=== PATIENT | female | born 1950 | race Caucasian/White ===

== ENCOUNTER → 2016-07-03 | Outpatient (CLI) | payer MEDICARE, OTHER | END | disposition home or self-care (01) | LOC: LABWHC1 11:07 | PROVIDERS: ATTEND Psychiatry & Neurology Neurology | DX: Z51.81 Encounter for therapeutic drug level monitoring (principal); G40.909 Epilepsy, unspecified, not intractable, without status epilepticus | CPT/HCPCS: 36415; 80177 ==

== ENCOUNTER 2016-09-18 07:54 | Day surgery (SDC) | payer MEDICARE, OTHER ==
[2016-09-17 08:51] VITALS: BMI 31.1
[~2016-09-18 07:54] MED LIST: DEXAMETHASONE SOD PHOSPHATE 10 MG/ML 1 ML VIAL IV ONE; FAMOTIDINE 20 MG/2 ML VIAL IV PRN; HEPARIN SODIUM,PORCINE 5,000 UNIT/ML 1 ML VIAL SQ ONE; LACTATED RINGERS 1,000 ML IV SCH; LIDOCAINE 1% 20 ML VIAL (10MG/ML) FOR IV START INTRADERMA PRN; MIDAZOLAM 2 MG/2 ML VIAL IV PRN; ONDANSETRON 4 MG/2 ML VIAL IVP ONE; ceFAZolin 2 GM in SODIUM CHLORIDE 0.9% 100 ML IVPB ONE
--- NOTE | 2016-09-18 09:14 | P.GSHP ---
History of Present Illness H&P Date: 09/18/16 Chief Complaint: Incisional hernia This is a 66-year-old female who presents today for laparoscopic robotic system repair of incisional hernia. Patient had a previous exposure laparotomy with a midline incision. Patient developed a incisional hernia in the upper portion of her midline scar. - Constitutional Constitutional: Reports as per HPI Past Medical History Past Medical History: Hyperlipidemia, Hypertension, Seizure Disorder, Thyroid Disorder Additional Past Medical History / Comment(s): Arthritis History of Any Multi-Drug Resistant Organisms: None Reported Past Surgical History: Back Surgery, Cholecystectomy, Tonsillectomy Additional Past Surgical History / Comment(s): lap band, gastric sleeve Past Anesthesia/Blood Transfusion Reactions: No Reported Reaction Past Psychological History: Anxiety, Depression Smoking Status: Never smoker Past Alcohol Use History: None Reported Past Drug Use History: None Reported - Past Family History Mother Family Medical History: Pulmonary Embolus Additional Family Medical History / Comment(s): Multiple TIA's. Father Family Medical History: Cancer Additional Family Medical History / Comment(s): Lung Medications and Allergies Home Medications Medication Instructions Recorded Confirmed Type Atorvastatin [Lipitor] 10 mg PO HS 09/21/13 09/18/16 History Citalopram Hydrobromide 20 mg PO DAILY 09/21/13 09/18/16 History [Citalopram HBr] Cyclobenzaprine [Flexeril] 10 mg PO BID 09/21/13 09/18/16 History LORazepam [Lorazepam] 0.5 mg PO BID 09/21/13 09/18/16 History Levothyroxine Sodium [Synthroid] 50 mcg PO DAILY 09/21/13 09/18/16 History Meclizine [Antivert] 25 mg PO BID 09/21/13 09/18/16 History Omeprazole 20 mg PO BID 09/21/13 09/18/16 History Potassium Chloride [Potassium 20 meq PO DAILY 09/21/13 09/18/16 History Chloride ER] hydrOXYzine HCL [Atarax] 25 mg PO TID PRN 09/21/13 09/18/16 History Calcium Carbonate [Calcium] 600 mg PO DAILY 04/28/15 09/18/16 History Cholecalciferol [Vitamin D3] 1,000 unit PO DAILY 04/28/15 09/18/16 History Cyanocobalamin [Vitamin B-12] 500 mcg PO DOWLING 04/28/15 09/18/16 History Ferrous Sulfate [Iron (65 MG 325 mg PO DAILY 04/28/15 09/18/16 History Elemental)] buPROPion XL [Wellbutrin XL] 150 mg PO DAILY 04/28/15 09/18/16 History levETIRAcetam [Keppra] 1,000 mg PO Q12HR 04/28/15 09/18/16 History Zolpidem Tartrate 10 mg PO HS 02/12/16 09/18/16 History Carvedilol [Coreg] 3.125 mg PO BID 02/14/16 09/18/16 History Allergies Allergy/AdvReac Type Severity Reaction Status Date / Time ciprofloxacin [From Cipro] Allergy Unknown Verified 09/18/16 08:10 ciprofloxacin HCl Allergy Unknown Verified 09/18/16 08:10 [From Cipro] soy Allergy Anaphylaxis Verified 09/18/16 08:10 tetracycline [Tetracycline] Allergy Rash/Hives Verified 09/18/16 08:10 tioconazole [From Monistat 1] Allergy Rash/Hives Verified 09/18/16 08:10 acetaminophen [From Lortab] AdvReac Rash/Hives Verified 09/18/16 08:10 codeine AdvReac Rash/Hives Verified 09/18/16 08:10 hydrocodone bitartrate AdvReac Rash/Hives Verified 09/18/16 08:10 [From Lortab] meperidine HCl [From Demerol] AdvReac Rash/Hives Verified 09/18/16 08:10 morphine AdvReac Rash/Hives Verified 09/18/16 08:10 propoxyphene napsylate AdvReac Rash/Hives Verified 09/18/16 08:10 [From Darvocet-N 100] Sulfa (Sulfonamide AdvReac Rash/Hives Verified 09/18/16 08:10 Antibiotics) Surgical - Exam Vital Signs Temp Pulse Resp BP Pulse Ox 97.0 F L 72 16 137/77 96 09/18/16 08:10 09/18/16 08:10 09/18/16 08:10 09/18/16 08:10 09/18/16 08:10 - General well developed, no distress - Eyes PERRL - ENT normal pinna - Neck no masses - Respiratory normal expansion - Cardiovascular Rhythm: regular - Abdomen Abdomen: soft, non tender Assessment and Plan Plan: Incisional hernia. We'll perform laparoscopic robotic-assisted repair.
[2016-09-18] MEDS ORDERED: PROPOFOL 10 MG/ML 20 ML VIAL IV ONE (09:30)
[2016-09-18] MEDS ORDERED: KETOROLAC 30 MG/ML 1 ML VIAL ONE (09:30)
[2016-09-18] MEDS ORDERED: ROCURONIUM BROMIDE 10 MG/ML 10 ML VIAL IV ONE (09:30)
[2016-09-18] MEDS ORDERED: MIDAZOLAM 2 MG/2 ML VIAL ONE (09:30)
[2016-09-18] MEDS ORDERED: NEOSTIGMINE 1 MG/ML 10 ML VIAL ONE (09:30)
[2016-09-18] MEDS ORDERED: LIDOCAINE 1% INJ 10MG/ML (20 ML MDV) ONE (09:30)
[2016-09-18] MEDS ORDERED: GLYCOPYRROLATE 0.2 MG/ML 2 ML VIAL ONE (09:30)
[2016-09-18] MEDS ORDERED: fentaNYL (PF) 50 MCG/ML 2 ML AMP ONE (09:30)
[2016-09-18] MEDS ORDERED: PHENYLEPHRINE-0.9% NACL SYG 1 MG/10 ML SYRINGE ONE (09:30)
[2016-09-18] MEDS ORDERED: SUCCINYLCHOLINE CHLORIDE 100 MG/5 ML SYR IV ONE (09:30)
[2016-09-18] MEDS ORDERED: BUPIVACAIN-EPI 0.25%-1:200,000 30 ML VIAL SQ ONE ×2 (09:48→09:55)
--- NOTE | 2016-09-18 10:44 | P.OP ---
Date of Procedure: 09/18/16 Preoperative Diagnosis: Incisional hernia Postoperative Diagnosis: Incisional hernia Procedure(s) Performed: Laparoscopic lysis of adhesion Laparoscopic robot-assisted repair of incisional hernia Implants: Anesthesia: DARCIA Surgeon: Doroteo Yancey Estimated Blood Loss (ml): 5 Pathology: none sent Condition: stable Disposition: PACU Indications for Procedure: Operative Findings: Description of Procedure: The patient's placed on the operating table in the supine position. She received general anesthesia. Her abdomen was prepped and draped usual sterile fashion. The skin incision sites were anesthetized with 1% local Xylocaine. And then using a 5 mm optical trocar the pleural cavity is entered. And then the laparoscope was placed back the pleural cavity after adequate insufflation. Next a 8 mm robotic trochars placed left lower quadrant and a 12 mm trochars placed left lateral position and the original 5 ohmmeter trocar was exchanged for a 8 mm robotic trocar. The patient's placed in the left side up position. The patient was undocked the robot. There were adhesions within the hernia. These were lysed using sharp dissection and electrocautery. The fascial defect was then closed with oh strap fixed suture. The hernia repair was then buttressed with ventral light ST mesh this was secured with 2OV lock suture. the patient was then undocked the robot. The needles were retrieved. The fascia of the 12 mm trocar site was closed with a Chandler Agustin and 0 Ethibond suture. Skin was closed with 3 -0 Monocryl suture. The trochars withdrawn. Patient top procedure well and was sent to recovery in stable condition.
[2016-09-18 11:06] VITALS: TEMP 97.2
[2016-09-18] MEDS: HYDROmorphone 1 MG/ML 1 ML SYRINGE IVP PRN ×2 (11:25→11:47)
[2016-09-18] MEDS ORDERED: LACTATED RINGERS 1,000 ML IV ONE (11:41)
[2016-09-18 13:11] VITALS: RESP 18
[2016-09-18] MEDS ORDERED: HYDROcodone/APAP 7.5-325MG 1 EACH TAB PO ONE (13:12)
[2016-09-18 15:19] VITALS: BP 131/76; PULSE 93
== END 2016-09-18 16:06 | disposition home or self-care (01) ==
LOC: OR 07:54
PROVIDERS: ATTEND Surgery
DX: K43.2 Incisional hernia without obstruction or gangrene (principal); I10 Essential (primary) hypertension; G40.909 Epilepsy, unspecified, not intractable, without status epilepticus; M19.90 Unspecified osteoarthritis, unspecified site; K66.0 Peritoneal adhesions (postprocedural) (postinfection); E07.9 Disorder of thyroid, unspecified; K21.9 Gastro-esophageal reflux disease without esophagitis; F41.9 Anxiety disorder, unspecified; F32.9 Major depressive disorder, single episode, unspecified; E78.5 Hyperlipidemia, unspecified; Z98.84 Bariatric surgery status; Z88.6 Allergy status to analgesic agent; Z88.1 Allergy status to other antibiotic agents; Z88.5 Allergy status to narcotic agent; Z88.2 Allergy status to sulfonamides; Z88.8 Allergy status to other drugs, medicaments and biological substances
CPT/HCPCS: 49654; C1781; J2250; J1644; J1100; J2710; J0690; J2405; J2001; J3010; J1885; J1170; J2370; J0330; J2704

== ENCOUNTER 2016-09-20 12:00 | Emergency (ER) | payer MEDICARE, OTHER ==
[2016-09-20 12:05] VITALS: RESP 18
[2016-09-20] MEDS ORDERED: SODIUM CHLORIDE 0.9% 1,000 ML IV STA (14:04)
[2016-09-20] MEDS ORDERED: KETOROLAC 30 MG/ML 1 ML VIAL IVP STA (14:24)
--- NOTE | 2016-09-20 14:30 | ED ---
Abdominal Pain HPI - General Chief Complaint: Abdominal Pain Stated Complaint: abd pain Time Seen by Provider: 09/20/16 14:00 Source: patient, family, RN notes reviewed Mode of arrival: ambulatory Limitations: no limitations - History of Present Illness Initial Comments: This is a 66-year-old female who had a ventral hernia repair done laparoscopically 2 days ago who presents today with complaints of persistent pain since the procedure. She states is 7/10 in severity she also complains of some fevers chills sweats he states she's been a well no nausea vomiting diarrhea. Occasional lightheadedness. No other complaints at this time MD Complaint: abdominal pain, other - Related Data Home Medications Medication Instructions Recorded Confirmed Atorvastatin [Lipitor] 10 mg PO HS 09/21/13 09/20/16 Citalopram Hydrobromide 20 mg PO DAILY 09/21/13 09/20/16 [Citalopram HBr] Cyclobenzaprine [Flexeril] 10 mg PO BID 09/21/13 09/20/16 LORazepam [Lorazepam] 0.5 mg PO BID 09/21/13 09/20/16 Levothyroxine Sodium [Synthroid] 50 mcg PO DAILY 09/21/13 09/20/16 Meclizine [Antivert] 25 mg PO BID 09/21/13 09/20/16 Omeprazole 20 mg PO BID 09/21/13 09/20/16 Potassium Chloride [Potassium 20 meq PO DAILY 09/21/13 09/20/16 Chloride ER] hydrOXYzine HCL [Atarax] 25 mg PO TID PRN 09/21/13 09/20/16 Calcium Carbonate [Calcium] 600 mg PO DAILY 04/28/15 09/20/16 Cholecalciferol [Vitamin D3] 1,000 unit PO DAILY 04/28/15 09/20/16 Cyanocobalamin [Vitamin B-12] 500 mcg PO DOWLING 04/28/15 09/20/16 Ferrous Sulfate [Iron (65 MG 325 mg PO DAILY 04/28/15 09/20/16 Elemental)] buPROPion XL [Wellbutrin XL] 150 mg PO DAILY 04/28/15 09/20/16 levETIRAcetam [Keppra] 1,000 mg PO Q12HR 04/28/15 09/20/16 Zolpidem Tartrate 10 mg PO HS 02/12/16 09/20/16 Carvedilol [Coreg] 3.125 mg PO BID 02/14/16 09/20/16 Previous Rx's Medication Instructions Recorded Ketorolac [Toradol] 10 mg PO Q6HR #20 tab 09/20/16 Allergies Allergy/AdvReac Type Severity Reaction Status Date / Time ciprofloxacin [From Cipro] Allergy Unknown Verified 09/20/16 14:22 ciprofloxacin HCl Allergy Unknown Verified 09/20/16 14:22 [From Cipro] soy Allergy Anaphylaxis Verified 09/20/16 14:22 tetracycline [Tetracycline] Allergy Rash/Hives Verified 09/20/16 14:22 tioconazole [From Monistat 1] Allergy Rash/Hives Verified 09/20/16 14:22 acetaminophen [From Lortab] AdvReac Rash/Hives Verified 09/20/16 14:22 codeine AdvReac Rash/Hives Verified 09/20/16 14:22 hydrocodone bitartrate AdvReac Rash/Hives Verified 09/20/16 14:22 [From Lortab] meperidine HCl [From Demerol] AdvReac Rash/Hives Verified 09/20/16 14:22 morphine AdvReac Rash/Hives Verified 09/20/16 14:22 propoxyphene napsylate AdvReac Rash/Hives Verified 09/20/16 14:22 [From Darvocet-N 100] Sulfa (Sulfonamide AdvReac Rash/Hives Verified 09/20/16 14:22 Antibiotics) Review of Systems ROS Statement: Those systems with pertinent positive or pertinent negative responses have been documented in the HPI. ROS Other: All systems not noted in ROS Statement are negative. Constitutional: Reports: fever, chills Past Medical History Past Medical History: Hyperlipidemia, Hypertension, Seizure Disorder, Thyroid Disorder Additional Past Medical History / Comment(s): Arthritis History of Any Multi-Drug Resistant Organisms: None Reported Past Surgical History: Back Surgery, Cholecystectomy, Hernia Repair, Joint Replacement, Tonsillectomy Additional Past Surgical History / Comment(s): lap band, gastric sleeve Past Anesthesia/Blood Transfusion Reactions: No Reported Reaction Past Psychological History: Anxiety, Depression Smoking Status: Never smoker Past Alcohol Use History: None Reported Past Drug Use History: None Reported - Past Family History Mother Family Medical History: Pulmonary Embolus Additional Family Medical History / Comment(s): Multiple TIA's. Father Family Medical History: Cancer Additional Family Medical History / Comment(s): Lung General Exam - General Exam Comments Initial Comments: This is a well-developed well-nourished awake alert oriented 3 female Limitations: no limitations General appearance: alert, in no apparent distress Head exam: Present: atraumatic, normocephalic, normal inspection Eye exam: Present: normal appearance, PERRL, EOMI. Absent: scleral icterus, conjunctival injection, periorbital swelling ENT exam: Present: mucous membranes dry Neck exam: Present: normal inspection. Absent: tenderness, meningismus, lymphadenopathy Respiratory exam: Present: normal lung sounds bilaterally. Absent: respiratory distress, wheezes, rales, rhonchi, stridor Cardiovascular Exam: Present: regular rate, normal rhythm, normal heart sounds. Absent: systolic murmur, diastolic murmur, rubs, gallop, clicks GI/Abdominal exam: Present: soft, tenderness (Mild tennis palpation over the midline or an old surgical site. The port sites appear to be healing well with no evidence of drainage discharge or dehiscence. No localized erythema or increased erythema. There is minimal discomfort to palpation at this time.), normal bowel sounds. Absent: distended, guarding, rebound, rigid Extremities exam: Present: normal inspection, full ROM, normal capillary refill. Absent: tenderness, pedal edema, joint swelling, calf tenderness Back exam: Present: normal inspection Neurological exam: Present: alert, oriented X3, CN II-XII intact Psychiatric exam: Present: normal affect, normal mood Skin exam: Present: warm, dry, intact, normal color. Absent: rash Course Vital Signs 09/20/16 09/20/16 12:01 16:00 Temperature 98.1 F Pulse Rate 75 67 Respiratory 18 18 Rate Blood Pressure 133/87 133/77 O2 Sat by Pulse 93 L 93 L Oximetry Medical Decision Making - Medical Decision Making Reevaluation patient reveals she is feeling better. I did discuss case with her surgeon. Patient will be discharged home on oral Toradol. She is a follow- up as planned and return when necessary she is feeling much improved at this time - Lab Data Result diagrams: 09/20/16 14:27 09/20/16 14:27 Lab Results 09/20/16 09/20/1617 Range/Units 14:27 14:27 14:27 WBC (3.8-10.6) k/uL RBC (3.80-5.40) m/uL Hgb (11.4-16.0) gm/dL Hct (34.0-46.0) % MCV (80.0-100.0) fL MCH (25.0-35.0) pg MCHC (31.0-37.0) g/dL RDW (11.5-15.5) % Plt Count (150-450) k/uL Neutrophils % % Lymphocytes % % Monocytes % % Eosinophils % % Basophils % % Neutrophils # (1.3-7.7) k/uL Lymphocytes # (1.0-4.8) k/uL Monocytes # (0-1.0) k/uL Eosinophils # (0-0.7) k/uL Basophils # (0-0.2) k/uL PT 10.4 (9.0-12.0) sec INR 1.0 (<1.1) APTT 23.8 (22.0-30.0) sec Sodium 141 (137-145) mmol/L Potassium 4.1 (3.5-5.1) mmol/L Chloride 106 (98-107) mmol/L Carbon Dioxide 27 (22-30) mmol/L Anion Gap 8 mmol/L BUN 8 (7-17) mg/dL Creatinine 0.70 (0.52-1.04) mg/dL Est GFR (MDRD) Af Amer >60 (>60 ml/min/1.73 sqM) Est GFR (MDRD) Non-Af >60 (>60 ml/min/1.73 sqM) Glucose 100 H (74-99) mg/dL Plasma Lactic Acid Jamil 0.9 (0.7-2.0) mmol/L Calcium 9.1 (8.4-10.2) mg/dL Total Bilirubin 0.7 (0.2-1.3) mg/dL AST 19 (14-36) U/L ALT 22 (9-52) U/L Alkaline Phosphatase 118 (38-126) U/L Total Protein 6.4 (6.3-8.2) g/dL Albumin 3.8 (3.5-5.0) g/dL Amylase 43 (30-110) U/L Lipase 49 (23-300) U/L Urine Color Urine Appearance (Clear) Urine pH (5.0-8.0) Ur Specific [place] (1.001-1.035) Urine Protein (Negative) Urine Glucose (UA) (Negative) Urine Ketones (Negative) Urine Blood (Negative) Urine Nitrite (Negative) Urine Bilirubin (Negative) Urine Urobilinogen (<2.0) mg/dL Ur Leukocyte Esterase (Negative) Blood Type Blood Type Recheck Antibody Screen Spec Expiration Date 09/20/16 09/20/16 09/20/16 Range/Units 14:27 14:27 14:34 WBC 8.3 (3.8-10.6) k/uL RBC 4.77 (3.80-5.40) m/uL Hgb 13.3 (11.4-16.0) gm/dL Hct 41.4 (34.0-46.0) % MCV 86.7 (80.0-100.0) fL MCH 27.9 (25.0-35.0) pg MCHC 32.2 (31.0-37.0) g/dL RDW 13.7 (11.5-15.5) % Plt Count 254 (150-450) k/uL Neutrophils % 64 % Lymphocytes % 20 % Monocytes % 6 % Eosinophils % 8 % Basophils % 1 % Neutrophils # 5.3 (1.3-7.7) k/uL Lymphocytes # 1.7 (1.0-4.8) k/uL Monocytes # 0.5 (0-1.0) k/uL Eosinophils # 0.6 (0-0.7) k/uL Basophils # 0.1 (0-0.2) k/uL PT (9.0-12.0) sec INR (<1.1) APTT (22.0-30.0) sec Sodium (137-145) mmol/L Potassium (3.5-5.1) mmol/L Chloride (98-107) mmol/L Carbon Dioxide (22-30) mmol/L Anion Gap mmol/L BUN (7-17) mg/dL Creatinine (0.52-1.04) mg/dL Est GFR (MDRD) Af Amer (>60 ml/min/1.73 sqM) Est GFR (MDRD) Non-Af (>60 ml/min/1.73 sqM) Glucose (74-99) mg/dL Plasma Lactic Acid Jamil (0.7-2.0) mmol/L Calcium (8.4-10.2) mg/dL Total Bilirubin (0.2-1.3) mg/dL AST (14-36) U/L ALT (9-52) U/L Alkaline Phosphatase (38-126) U/L Total Protein (6.3-8.2) g/dL Albumin (3.5-5.0) g/dL Amylase (30-110) U/L Lipase (23-300) U/L Urine Color Light Yellow Urine Appearance Clear (Clear) Urine pH 5.5 (5.0-8.0) Ur Specific [place] 1.008 (1.001-1.035) Urine Protein Negative (Negative) Urine Glucose (UA) Negative (Negative) Urine Ketones Negative (Negative) Urine Blood Negative (Negative) Urine Nitrite Negative (Negative) Urine Bilirubin Negative (Negative) Urine Urobilinogen <2.0 (<2.0) mg/dL Ur Leukocyte Esterase Negative (Negative) Blood Type O Positive Blood Type Recheck No Antibody Screen NEGATIVE Spec Expiration Date 09/23/20162326 Disposition Clinical Impression: Postoperative abdominal pain Disposition: HOME SELF-CARE Condition: Good Instructions: Abdominal Pain (ED) Prescriptions: Ketorolac [Toradol] 10 mg PO Q6HR #20 tab Referrals: Cade Menendez DO [Primary Care Provider] - 1-2 days
[2016-09-20 14:46] LABS: Basophils # (A) 0.1 k/uL (0-0.2); Basophils % (A) 1 %; CHCM 32.5; Eosinophils # (A) 0.6 k/uL (0-0.7); Eosinophils % (A) 8 %; HCT 41.4 % (34.0-46.0); HDW 2.39; HGB 13.3 gm/dL (11.4-16.0); Luc # (Auto) 0.14; Luc % (Auto) 2; Lymphocytes # (A) 1.7 k/uL (1.0-4.8); Lymphocytes % (A) 20 %; MCH 27.9 pg (25.0-35.0); MCHC 32.2 g/dL (31.0-37.0); MCV 86.7 fL (80.0-100.0); Mean Platelet Volume 6.8; Monocytes # (A) 0.5 k/uL (0-1.0); Monocytes % (A) 6 %; Neutrophils # (A) 5.3 k/uL (1.3-7.7); Neutrophils % (A) 64 %; RBC 4.77 m/uL (3.80-5.40); RDW 13.7 % (11.5-15.5); WBC 8.3 k/uL (3.8-10.6); WBC (Perox) 8.39
[2016-09-20 14:50] LABS: Appearance,Urine Clear (Clear); Bilirubin,Urine Negative (Negative); Glucose,Urine (UA) Negative (Negative); Ketones,Urine Negative (Negative); Leukocyte Esterase,Urine Negative (Negative); Nitrite,Urine Negative (Negative); PH, Urine 5.5 (5.0-8.0); Protein,Urine Negative (Negative); Specific Gravity,Urine 1.008 (1.001-1.035); UA Billing (MACRO vs. MICRO) CHEM; Urobilinogen,Urine <2.0 mg/dL (<2.0)
[2016-09-20 14:53] LABS: ALT 22 U/L (9-52); AST 19 U/L (14-36); Alkaline Phosphatase 118 U/L (38-126); Amylase 43 U/L (30-110); Anion Gap 8 mmol/L; Blood Urea Nitrogen 8 mg/dL (7-17); Calcium 9.1 mg/dL (8.4-10.2); Carbon Dioxide 27 mmol/L (22-30); Chloride 106 mmol/L (98-107); Glucose 100 mg/dL (74-99); Non-African American GFR(MDRD) >60 (>60 ml/min/1.73 sqM); Partial Thromboplastin Time 23.8 sec (22.0-30.0); Potassium 4.1 mmol/L (3.5-5.1); Prothrombin Time 10.4 sec (9.0-12.0); Sodium 141 mmol/L (137-145); Total Bilirubin 0.7 mg/dL (0.2-1.3); Total Protein 6.4 g/dL (6.3-8.2)
[2016-09-20 17:02] VITALS: BP 132/89; PULSE 74; TEMP 96.9
== END 2016-09-20 17:02 | disposition home or self-care (01) ==
LOC: EC 12:00
DX: R10.9 Unspecified abdominal pain (principal); G89.18 Other acute postprocedural pain; R50.9 Fever, unspecified; R42 Dizziness and giddiness; E78.5 Hyperlipidemia, unspecified; I10 Essential (primary) hypertension; G40.909 Epilepsy, unspecified, not intractable, without status epilepticus; E07.9 Disorder of thyroid, unspecified; F32.9 Major depressive disorder, single episode, unspecified; F41.9 Anxiety disorder, unspecified; Z79.899 Other long term (current) drug therapy; Z88.1 Allergy status to other antibiotic agents; Z88.2 Allergy status to sulfonamides; Z88.5 Allergy status to narcotic agent; Z88.8 Allergy status to other drugs, medicaments and biological substances; Z91.018 Allergy to other foods; Z98.84 Bariatric surgery status; Z90.49 Acquired absence of other specified parts of digestive tract; Y83.8 Other surgical procedures as the cause of abnormal reaction of the patient, or of later complication, without mention of misadventure at the time of the procedure
CPT/HCPCS: 36415; 86900; 86901; 80053; 82150; 83605; 83690; 85025; 85610; 85730; 86850; 81003; 99284; 96374; 96361 ×2; J1885

== ENCOUNTER 2017-08-29 12:14 | Emergency (ER) | payer MEDICARE ==
[2017-08-29 12:20] VITALS: TEMP 97.4
[2017-08-29] MEDS ORDERED: HYDROcodone/APAP 5-325MG 1 EACH TAB PO STA (12:42)
[2017-08-29] MEDS ORDERED: IBUPROFEN 800 MG TAB PO STA (12:44)
--- NOTE | 2017-08-29 12:45 | ED ---
Fall HPI - General Chief Complaint: Fall Stated Complaint: seizures Time Seen by Provider: 08/29/17 12:26 Source: patient Mode of arrival: ambulatory - History of Present Illness Initial Comments: Patient sustained an accidental trip and fall. She struck her head. She also injured her left shoulder and left knee. Patient states her symptoms occurred yesterday. She denies neck pain, chest pain, belly pain. She does not feel short of breath. She has no change in vision or hearing. She took no medication for her fall injuries. She denies any nausea or vomiting. She denies any lightheadedness or dizziness. - Related Data Home Medications Medication Instructions Recorded Confirmed Atorvastatin [Lipitor] 10 mg PO HS 09/21/13 08/29/17 Cyclobenzaprine [Flexeril] 10 mg PO BID 09/21/13 08/29/17 LORazepam [Lorazepam] 0.5 mg PO BID 09/21/13 08/29/17 Levothyroxine Sodium [Synthroid] 50 mcg PO DAILY 09/21/13 08/29/17 Meclizine [Antivert] 25 mg PO BID 09/21/13 08/29/17 Omeprazole 20 mg PO BID 09/21/13 08/29/17 Potassium Chloride [Potassium 20 meq PO DAILY 09/21/13 08/29/17 Chloride ER] hydrOXYzine HCL [Atarax] 25 mg PO TID PRN 09/21/13 08/29/17 Cyanocobalamin [Vitamin B-12] 500 mcg PO DOWLING 04/28/15 08/29/17 buPROPion XL [Wellbutrin XL] 150 mg PO DAILY 04/28/15 08/29/17 levETIRAcetam [Keppra] 1,000 mg PO Q12HR 04/28/15 08/29/17 Zolpidem Tartrate 10 mg PO HS 02/12/16 08/29/17 Carvedilol [Coreg] 3.125 mg PO BID 02/14/16 08/29/17 Citalopram Hydrobromide [CeleXA] 40 mg PO DAILY 08/29/17 08/29/17 Allergies Allergy/AdvReac Type Severity Reaction Status Date / Time ciprofloxacin [From Cipro] Allergy Unknown Verified 08/29/17 13:48 ciprofloxacin HCl Allergy Unknown Verified 08/29/17 13:48 [From Cipro] hydromorphone [From Dilaudid] Allergy Rash/Hives Verified 08/29/17 13:48 soy Allergy Anaphylaxis Verified 08/29/17 13:48 tetracycline [Tetracycline] Allergy Rash/Hives Verified 08/29/17 13:48 tioconazole [From Monistat 1] Allergy Rash/Hives Verified 08/29/17 13:48 acetaminophen [From Lortab] AdvReac Rash/Hives Verified 08/29/17 13:48 codeine AdvReac Rash/Hives Verified 08/29/17 13:48 hydrocodone bitartrate AdvReac Rash/Hives Verified 08/29/17 13:48 [From Lortab] meperidine HCl [From Demerol] AdvReac Rash/Hives Verified 08/29/17 13:48 morphine AdvReac Rash/Hives Verified 08/29/17 13:48 propoxyphene napsylate AdvReac Rash/Hives Verified 08/29/17 13:48 [From Darvocet-N 100] Sulfa (Sulfonamide AdvReac Rash/Hives Verified 08/29/17 13:48 Antibiotics) Review of Systems ROS Statement: Those systems with pertinent positive or pertinent negative responses have been documented in the HPI. ROS Other: All systems not noted in ROS Statement are negative. Past Medical History Past Medical History: Hyperlipidemia, Hypertension, Seizure Disorder, Thyroid Disorder Additional Past Medical History / Comment(s): Arthritis History of Any Multi-Drug Resistant Organisms: None Reported Past Surgical History: Back Surgery, Cholecystectomy, Hernia Repair, Joint Replacement, Tonsillectomy Additional Past Surgical History / Comment(s): lap band, gastric sleeve Past Anesthesia/Blood Transfusion Reactions: No Reported Reaction Past Psychological History: Anxiety, Depression Smoking Status: Never smoker Past Alcohol Use History: None Reported Past Drug Use History: None Reported - Past Family History Mother Family Medical History: Pulmonary Embolus Additional Family Medical History / Comment(s): Multiple TIA's. Father Family Medical History: Cancer Additional Family Medical History / Comment(s): Lung General Exam Limitations: no limitations General appearance: alert, in no apparent distress Head exam: Present: atraumatic, normocephalic, normal inspection Eye exam: Present: normal appearance, PERRL, EOMI. Absent: scleral icterus, conjunctival injection, periorbital swelling ENT exam: Present: normal exam, mucous membranes moist Neck exam: Present: normal inspection. Absent: tenderness, meningismus, lymphadenopathy Respiratory exam: Present: normal lung sounds bilaterally. Absent: respiratory distress, wheezes, rales, rhonchi, stridor Cardiovascular Exam: Present: regular rate, normal rhythm, normal heart sounds. Absent: systolic murmur, diastolic murmur, rubs, gallop, clicks GI/Abdominal exam: Present: soft, normal bowel sounds. Absent: distended, tenderness, guarding, rebound, rigid Extremities exam: Present: normal inspection, full ROM, normal capillary refill. Absent: tenderness, pedal edema, joint swelling, calf tenderness Back exam: Present: normal inspection Neurological exam: Present: alert, oriented X3, CN II-XII intact Psychiatric exam: Present: normal affect, normal mood Skin exam: Present: warm, dry, intact, normal color. Absent: rash Course Vital Signs 08/29/17 08/29/17 12:15 14:08 Temperature 97.4 F L Pulse Rate 73 66 Respiratory 18 17 Rate Blood Pressure 129/83 153/79 O2 Sat by Pulse 97 97 Oximetry Medical Decision Making - Medical Decision Making Patient complains of injuries from a fall. X-ray and CT are all negative for acute fracture or dislocation or any other emergency. Imaging did reveal an incidental laryngeal polyp. I will give her follow-up for that with ENT and I explained that to her. At this time she is feeling better and is stable for discharge. Disposition Clinical Impression: Head injury Disposition: HOME SELF-CARE Condition: Good Instructions: Head Injury (ED) Is patient prescribed a controlled substance at d/c from ED?: No Referrals: Cade Menendez DO [Primary Care Provider] - 1-2 days Edwardo Joel DO [Doctor of Osteopathic Medicine] - 1-2 days
--- NOTE | 2017-08-29 13:47 | CT ---
EXAMINATION TYPE: CT brain mar[place] wo con DATE OF EXAM: 08/29/2017 COMPARISON: 02/05/2016 HISTORY: Fall on Friday, struck back of head CT DLP: 1658 mGycm. Automated Exposure Control for Dose Reduction was Utilized. TECHNIQUE: CT scan of the head and cervical spine are performed without contrast. FINDINGS: There is no acute intracranial hemorrhage, mass effect, or midline shift identified. The ventricles and sulci are symmetrically mildly prominent compatible with age-related finding loss. M oderate mucosal thickening is seen within the right sphenoid sinus. The globes are intact and the rem aining visualized sinuses are clear. Cervical spine is visualized in its entirety from C1 through upper thoracic levels and demonstrates s atisfactory alignment without evidence of acute fracture or dislocation. Anterior cervical fusion is seen from C4 through C7 with intervertebral disc cages and osseous fusion. Small posterior disc osteo phyte complexes are seen from C3 through C7 creating multilevel mild spinal canal stenosis. Uncoverte bral hypertrophy and facet arthropathy are also seen throughout the cervical spine as well as few armaan cifications within the ligamentum flavum. There is extensive motion artifact. Therefore there is a qu estionable centrally fat attenuated polyp versus motion artifact within the posterior trachea on seri es 8 and series 7 image 76 through 82. Prevertebral soft tissue appears within normal limits. The C1 -C2 articulation is unremarkable. IMPRESSION: 1. There is no acute fracture or dislocation evident in the cervical spine. 2. No acute intracranial hemorrhage, mass effect, or midline shift is seen. 3. Postsurgical osseous fusion of the C4-C7 vertebral bodies with small posterior disc osteophyte com plexes from C3 through C7 creating mild spinal canal stenosis at multiple levels. 4. Motion artifact within the visualized upper thorax with questionable tracheal polyp versus debris versus artifact. Repeat CT neck on a nonemergent basis or direct visualization could be performed.
--- NOTE | 2017-08-29 13:53 | XR ---
EXAMINATION TYPE: XR chest 1V portable DATE OF EXAM: 08/29/2017 COMPARISON: NONE HISTORY: trauma TECHNIQUE: Single frontal view of the chest is obtained. FINDINGS: There is no focal air space opacity, pleural effusion, or pneumothorax seen. The cardiac silhouette size is within normal limits. The osseous structures are intact. Postsurgical change ove rlying the cervical spine. Surgical clips are seen. IMPRESSION: No acute process.
--- NOTE | 2017-08-29 13:54 | XR ---
EXAMINATION TYPE: XR knee complete LT DATE OF EXAM: 08/29/2017 CLINICAL HISTORY: Fall with subsequent left lower extremity pain TECHNIQUE: Three views of the left knee are obtained. COMPARISON: None. FINDINGS: There is no acute fracture/dislocation evident in left knee. Left knee total arthroplasty is noted. There is no malalignment. No prosthetic fracture. The overlying soft tissue appears unrema rkable. IMPRESSION: Left knee arthroplasty with no acute fracture or dislocation in the left knee.
--- NOTE | 2017-08-29 13:55 | XR ---
EXAMINATION TYPE: XR pelvis AP view DATE OF EXAM: 08/29/2017 CLINICAL HISTORY: Fall with left hip pain and pelvic pain TECHNIQUE: A single AP view of the pelvis is obtained. COMPARISON: None. FINDINGS: There is no acute fracture/dislocation evident in the pelvis. Mild femoral acetabular art hropathy is seen as well as mild degenerative changes of the lumbosacral junction. The hip and sacroi liac joints appear overall symmetric. The overlying soft tissue appears unremarkable. IMPRESSION: There is no acute fracture or dislocation in the pelvis.
--- NOTE | 2017-08-29 13:59 | XR ---
EXAMINATION TYPE: XR shoulder complete LT DATE OF EXAM: 08/29/2017 COMPARISON: NONE HISTORY: Pain TECHNIQUE: Three views are submitted. FINDINGS: The osseous structures are intact. There is no acute fracture or dislocation. Arthropathy of the AC joint. IMPRESSION: 1. No acute fracture.
[2017-08-29 14:09] VITALS: BP 153/79; PULSE 66; RESP 17
== END 2017-08-29 14:37 | disposition home or self-care (01) ==
LOC: EC 12:14
DX: S09.90XA Unspecified injury of head, initial encounter (principal); S49.92XA Unspecified injury of left shoulder and upper arm, initial encounter; S89.92XA Unspecified injury of left lower leg, initial encounter; E78.5 Hyperlipidemia, unspecified; I10 Essential (primary) hypertension; G40.909 Epilepsy, unspecified, not intractable, without status epilepticus; E07.9 Disorder of thyroid, unspecified; F32.9 Major depressive disorder, single episode, unspecified; F41.9 Anxiety disorder, unspecified; Z79.899 Other long term (current) drug therapy; Z88.1 Allergy status to other antibiotic agents; Z88.5 Allergy status to narcotic agent; Z88.2 Allergy status to sulfonamides; Z88.6 Allergy status to analgesic agent; Z91.018 Allergy to other foods; Z88.8 Allergy status to other drugs, medicaments and biological substances; W01.198A Fall on same level from slipping, tripping and stumbling with subsequent striking against other object, initial encounter; Y92.89 Other specified places as the place of occurrence of the external cause
CPT/HCPCS: 70450; 71045; 72125; 72170; 99284

== ENCOUNTER 2017-09-29 22:23 | Emergency (ER) | payer MEDICARE, OTHER ==
[2017-09-30] MEDS ORDERED: DIPH,PERTUS(ACELL)TETVAC-LF 0.5 ML VIAL IM ONE (00:42)
--- NOTE | 2017-09-30 00:44 | ED ---
Fall HPI - General Chief Complaint: Fall Stated Complaint: fall Time Seen by Provider: 09/30/17 00:19 Source: patient Mode of arrival: wheelchair - History of Present Illness Initial Comments: This patient's a 67-year-old woman who presents to be evaluated for lumbar back pain that developed tonight after she had a number of falls. The patient states that she is currently taking a GI prep to have upper endoscopy and colonoscopy tomorrow. As result of that she had to use the bathroom and states she was hurrying to get to the bathroom and slipped and fell twice. She indicates pain in the lumbar back. She denies any symptoms radiating to the legs, any change in bladder or bowel function or saddle anesthesia. No weakness. MD Complaint: fall Onset/Timin -: hour(s) Fall From: standing When Fall Occurred: 1-[address] Fall Occurred: home Loss of Consciousness: none Prolonged Down Time?: no Symptoms Prior to Fall: none Location: back Quality: dull Context: tripped/slipped Associated Symptoms: denies - Related Data Home Medications Medication Instructions Recorded Confirmed Atorvastatin [Lipitor] 10 mg PO HS 09/21/13 09/25/17 Cyclobenzaprine [Flexeril] 10 mg PO BID 09/21/13 09/25/17 LORazepam [Lorazepam] 0.5 mg PO BID 09/21/13 09/25/17 Levothyroxine Sodium [Synthroid] 50 mcg PO DAILY 09/21/13 09/25/17 Meclizine [Antivert] 25 mg PO BID 09/21/13 09/25/17 Omeprazole 20 mg PO BID 09/21/13 09/25/17 Potassium Chloride [Potassium 20 meq PO DAILY 09/21/13 09/25/17 Chloride ER] hydrOXYzine HCL [Atarax] 25 mg PO TID PRN 09/21/13 09/25/17 Cyanocobalamin [Vitamin B-12] 500 mcg PO DOWLING 04/28/15 09/25/17 buPROPion XL [Wellbutrin XL] 150 mg PO DAILY 04/28/15 09/25/17 levETIRAcetam [Keppra] 1,000 mg PO Q12HR 04/28/15 09/25/17 Zolpidem Tartrate 10 mg PO HS 02/12/16 09/25/17 Carvedilol [Coreg] 3.125 mg PO BID 02/14/16 09/25/17 Citalopram Hydrobromide [CeleXA] 40 mg PO DAILY 08/29/17 09/25/17 Fycompa 4 Mg 4 mg PO HS 09/25/17 Ibuprofen [Motrin] 600 mg PO Q8HR PRN 09/25/17 09/25/17 Allergies Allergy/AdvReac Type Severity Reaction Status Date / Time ciprofloxacin [From Cipro] Allergy Unknown Verified 09/29/17 22:43 ciprofloxacin HCl Allergy Unknown Verified 09/29/17 22:43 [From Cipro] hydromorphone [From Dilaudid] Allergy Rash/Hives Verified 09/29/17 22:43 soy Allergy Anaphylaxis Verified 09/29/17 22:43 tetracycline [Tetracycline] Allergy Rash/Hives Verified 09/29/17 22:43 tioconazole [From Monistat 1] Allergy Rash/Hives Verified 09/29/17 22:43 codeine AdvReac Rash/Hives Verified 09/29/17 22:43 hydrocodone bitartrate AdvReac Rash/Hives Verified 09/29/17 22:43 [From Lortab] meperidine HCl [From Demerol] AdvReac Rash/Hives Verified 09/29/17 22:43 morphine AdvReac Rash/Hives Verified 09/29/17 22:43 propoxyphene napsylate AdvReac Rash/Hives Verified 09/29/17 22:43 [From Darvocet-N 100] Sulfa (Sulfonamide AdvReac Rash/Hives Verified 09/29/17 22:43 Antibiotics) Review of Systems ROS Statement: Those systems with pertinent positive or pertinent negative responses have been documented in the HPI. ROS Other: All systems not noted in ROS Statement are negative. Constitutional: Denies: weakness Respiratory: Denies: cough, dyspnea Cardiovascular: Denies: chest pain, syncope Gastrointestinal: Reports: diarrhea. Denies: abdominal pain, vomiting Genitourinary: Denies: dysuria, hematuria Musculoskeletal: Reports: as per HPI, back pain Skin: Denies: rash Neurological: Denies: headache, weakness, numbness, paresthesias Past Medical History Past Medical History: GERD/Reflux, GI Bleed, Hyperlipidemia, Hypertension, Osteoarthritis (OA), Seizure Disorder, Thyroid Disorder Additional Past Medical History / Comment(s): LAST SEIZURE August, DIVERTICULITIS, STATES DIARRHEA FOR THE LAST 2 MONTHS., NECK AND BACK PAIN., KNEE PAIN., USES WALKER PRN., STATES HX OF GI BLEEDING. History of Any Multi-Drug Resistant Organisms: None Reported Past Surgical History: Back Surgery, Cholecystectomy, Heart Catheterization, Hernia Repair, Joint Replacement, Tonsillectomy Additional Past Surgical History / Comment(s): LAP BAND INSERTED & REMOVED, GASTRIC SLEEVE (2016), GINI TOTAL KNEES, CERVICAL FUSION (2-7), BOWEL RESECTION. , INCISIONAL HERNIA'S. STATES SEVERAL HEART CATHS-NO STENTS (DONE AT [facility]) Past Anesthesia/Blood Transfusion Reactions: No Reported Reaction Past Psychological History: Anxiety, Depression Smoking Status: Never smoker Past Alcohol Use History: None Reported Past Drug Use History: None Reported - Past Family History Mother Family Medical History: Pulmonary Embolus Additional Family Medical History / Comment(s): Multiple TIA's. Father Family Medical History: Cancer Additional Family Medical History / Comment(s): Lung Sister(s) Family Medical History: Cancer Additional Family Medical History / Comment(s): OVARIAN CANCER General Exam Limitations: no limitations General appearance: alert, in no apparent distress, obese Head exam: Present: atraumatic, normocephalic Eye exam: Present: normal appearance. Absent: scleral icterus, conjunctival injection Respiratory exam: Present: normal lung sounds bilaterally. Absent: respiratory distress, wheezes, rales, rhonchi, stridor Cardiovascular Exam: Present: regular rate, normal rhythm, normal heart sounds. Absent: systolic murmur, diastolic murmur, rubs, gallop GI/Abdominal exam: Present: soft. Absent: distended, tenderness, guarding, rebound, rigid, mass Extremities exam: Present: normal capillary refill, other (Patient has abrasion to the ulnar aspect of the right forearm. ). Absent: pedal edema, calf tenderness Back exam: Present: full ROM, tenderness, paraspinal tenderness, vertebral tenderness. Absent: CVA tenderness (R), CVA tenderness (L) Neurological exam: Present: alert, normal gait. Absent: motor sensory deficit Skin exam: Present: warm, dry, intact, normal color. Absent: rash Course Vital Signs 09/29/17 22:39 Temperature 97.5 F L Pulse Rate 71 Respiratory 18 Rate Blood Pressure 139/92 O2 Sat by Pulse 94 L Oximetry Disposition Clinical Impression: Fall, Back pain due to injury Disposition: HOME SELF-CARE Condition: Good Instructions: Fall Prevention for Older Adults (ED), Acute Low Back Pain (ED) Is patient prescribed a controlled substance at d/c from ED?: No Referrals: Cade Menendez DO [Primary Care Provider] - 1-2 days
--- NOTE | 2017-09-30 01:50 | XR ---
EXAMINATION TYPE: XR lumbar spine 2 or 3V DATE OF EXAM: 09/30/2017 COMPARISON: NONE HISTORY: Low back pain TECHNIQUE: 3 views FINDINGS: Vertebra have normal spacing and alignment. Posterior elements are intact. I see no olimpia shaw fracture. Sacroiliac joints are intact. IMPRESSION: Negative lumbar spine exam. No fracture.
[2017-09-30 02:05] VITALS: BP 135/91; PULSE 65; RESP 16; TEMP 97.9
== END 2017-09-30 02:05 | disposition home or self-care (01) ==
LOC: EC 22:23
DX: M54.5 Low back pain (principal); S50.811A Abrasion of right forearm, initial encounter; E78.5 Hyperlipidemia, unspecified; I10 Essential (primary) hypertension; E07.9 Disorder of thyroid, unspecified; K21.9 Gastro-esophageal reflux disease without esophagitis; G40.909 Epilepsy, unspecified, not intractable, without status epilepticus; F32.9 Major depressive disorder, single episode, unspecified; F41.9 Anxiety disorder, unspecified; E66.9 Obesity, unspecified; Z79.899 Other long term (current) drug therapy; Z88.1 Allergy status to other antibiotic agents; Z88.2 Allergy status to sulfonamides; Z88.5 Allergy status to narcotic agent; Z88.8 Allergy status to other drugs, medicaments and biological substances; Z91.018 Allergy to other foods; Z87.19 Personal history of other diseases of the digestive system; Z87.39 Personal history of other diseases of the musculoskeletal system and connective tissue; Z98.1 Arthrodesis status; Z68.36 Body mass index [BMI] 36.0-36.9, adult; Z23 Encounter for immunization; W01.0XXA Fall on same level from slipping, tripping and stumbling without subsequent striking against object, initial encounter; Y93.89 Activity, other specified; Y92.009 Unspecified place in unspecified non-institutional (private) residence as the place of occurrence of the external cause
CPT/HCPCS: 72100; 90471; 90715; 99283

== ENCOUNTER 2017-09-30 07:39 | Day surgery (SDC) | payer MEDICARE, OTHER ==
[2017-09-25 15:34] VITALS: BMI 36.9
[~2017-09-30 07:39] MED LIST changes: -DEXAMETHASONE SOD PHOSPHATE 10 MG/ML 1 ML VIAL IV ONE; -FAMOTIDINE 20 MG/2 ML VIAL IV PRN; -HEPARIN SODIUM,PORCINE 5,000 UNIT/ML 1 ML VIAL SQ ONE; -LIDOCAINE 1% 20 ML VIAL (10MG/ML) FOR IV START INTRADERMA PRN; -MIDAZOLAM 2 MG/2 ML VIAL IV PRN; -ONDANSETRON 4 MG/2 ML VIAL IVP ONE; -ceFAZolin 2 GM in SODIUM CHLORIDE 0.9% 100 ML IVPB ONE
[2017-09-30 08:13] VITALS: RESP 16; TEMP 97.4
[2017-09-30] MEDS ORDERED: PROPOFOL 10 MG/ML 20 ML VIAL IV ONE (09:11)
--- NOTE | 2017-09-30 09:29 | P.GSHP ---
History of Present Illness H&P Date: 09/30/17 Chief Complaint: GERD, diarrhea This a 67-year-old female referred from Dr. Cade Braga. Patient presents today for EGD and colonoscopy. She's had issues with GERD and diarrhea. Past Medical History Past Medical History: GERD/Reflux, GI Bleed, Hyperlipidemia, Hypertension, Osteoarthritis (OA), Seizure Disorder, Thyroid Disorder Additional Past Medical History / Comment(s): LAST SEIZURE August, DIVERTICULITIS, STATES DIARRHEA FOR THE LAST 2 MONTHS., NECK AND BACK PAIN., KNEE PAIN., USES WALKER PRN., STATES HX OF GI BLEEDING. History of Any Multi-Drug Resistant Organisms: None Reported Past Surgical History: Back Surgery, Cholecystectomy, Heart Catheterization, Hernia Repair, Joint Replacement, Tonsillectomy Additional Past Surgical History / Comment(s): LAP BAND INSERTED & REMOVED, GASTRIC SLEEVE (2015), GINI TOTAL KNEES, CERVICAL FUSION (2-7), BOWEL RESECTION. , INCISIONAL HERNIA'S. STATES SEVERAL HEART CATHS-NO STENTS (DONE AT [facility]) Past Anesthesia/Blood Transfusion Reactions: No Reported Reaction Past Psychological History: Anxiety, Depression Smoking Status: Never smoker Past Alcohol Use History: None Reported Past Drug Use History: None Reported - Past Family History Mother Family Medical History: Pulmonary Embolus Additional Family Medical History / Comment(s): Multiple TIA's. Father Family Medical History: Cancer Additional Family Medical History / Comment(s): Lung Sister(s) Family Medical History: Cancer Additional Family Medical History / Comment(s): OVARIAN CANCER Medications and Allergies Home Medications Medication Instructions Recorded Confirmed Type Atorvastatin [Lipitor] 10 mg PO HS 09/21/13 09/25/17 History Cyclobenzaprine [Flexeril] 10 mg PO BID 09/21/13 09/25/17 History LORazepam [Lorazepam] 0.5 mg PO BID 09/21/13 09/25/17 History Levothyroxine Sodium [Synthroid] 50 mcg PO DAILY 09/21/13 09/25/17 History Meclizine [Antivert] 25 mg PO BID 09/21/13 09/25/17 History Omeprazole 20 mg PO BID 09/21/13 09/25/17 History Potassium Chloride [Potassium 20 meq PO DAILY 09/21/13 09/25/17 History Chloride ER] hydrOXYzine HCL [Atarax] 25 mg PO TID PRN 09/21/13 09/25/17 History Cyanocobalamin [Vitamin B-12] 500 mcg PO DOWLING 04/28/15 09/25/17 History buPROPion XL [Wellbutrin XL] 150 mg PO DAILY 04/28/15 09/25/17 History levETIRAcetam [Keppra] 1,000 mg PO Q12HR 04/28/15 09/25/17 History Zolpidem Tartrate 10 mg PO HS 02/12/16 09/25/17 History Carvedilol [Coreg] 3.125 mg PO BID 02/14/16 09/30/17 History Citalopram Hydrobromide [CeleXA] 40 mg PO DAILY 08/29/17 09/25/17 History Fycompa 4 Mg 4 mg PO HS 09/25/17 History Ibuprofen [Motrin] 600 mg PO Q8HR PRN 09/25/17 09/25/17 History Allergies Allergy/AdvReac Type Severity Reaction Status Date / Time ciprofloxacin [From Cipro] Allergy Unknown Verified 09/30/17 08:11 ciprofloxacin HCl Allergy Unknown Verified 09/30/17 08:11 [From Cipro] hydromorphone [From Dilaudid] Allergy Rash/Hives Verified 09/30/17 08:11 soy Allergy Anaphylaxis Verified 09/30/17 08:11 tetracycline [Tetracycline] Allergy Rash/Hives Verified 09/30/17 08:11 tioconazole [From Monistat 1] Allergy Rash/Hives Verified 09/30/17 08:11 codeine AdvReac Rash/Hives Verified 09/30/17 08:11 hydrocodone bitartrate AdvReac Rash/Hives Verified 09/30/17 08:11 [From Lortab] meperidine HCl [From Demerol] AdvReac Rash/Hives Verified 09/30/17 08:11 morphine AdvReac Rash/Hives Verified 09/30/17 08:11 propoxyphene napsylate AdvReac Rash/Hives Verified 09/30/17 08:11 [From Darvocet-N 100] Sulfa (Sulfonamide AdvReac Rash/Hives Verified 09/30/17 08:11 Antibiotics) Surgical - Exam Vital Signs Temp Pulse Resp BP Pulse Ox 97.4 F L 82 16 148/92 98 09/30/17 08:12 09/30/17 08:12 09/30/17 08:12 09/30/17 08:12 09/30/17 08:12 - General well developed, no distress - Eyes PERRL - ENT normal pinna - Neck no masses - Respiratory normal expansion - Cardiovascular Rhythm: regular - Abdomen Abdomen: soft, non tender Assessment and Plan Assessment: GERD, diarrhea. We'll perform EGD and colonoscopy.
--- NOTE | 2017-09-30 09:46 | P.OP ---
Date of Procedure: 09/30/17 Preoperative Diagnosis: GERD Diarrhea Postoperative Diagnosis: No evidence of esophagitis No evidence of sleeve obstruction Mild diverticulosis Procedure(s) Performed: EGD Colonoscopy Anesthesia: MAC Surgeon: Doroteo Yancey Pathology: other (Esophagus) Condition: stable Disposition: PACU Description of Procedure: The patient's placed on the endoscopy table in the lateral position. She received IV sedation. The gastroscope placed oropharynx and passed in the esophagus and into the stomach. The scope was then placed through the pylorus and the first second portion duodenum. This appeared normal. The scope was then brought back the antrum this appeared normal. The patient had a previous sleeve gastrectomy. Scope was then brought back through the sleeve there is no evidence of any obstruction. The GE junction was at 40 cm. The distal esophagus appeared normal. But due to the patient's symptoms of GERD a random biopsies performed. The proximal esophagus appeared normal. Scope was withdrawn from patient. Next digital rectal exam was performed which revealed a few external hemorrhoids. The flexible colonoscope was then placed patient anus and passed throughout the entire colon. The ileocecal valve was visualized. Cecum, ascending and transverse colon appeared normal. There was a large amount of stool the colon which limited the view of the mucosa. Scope was then brought back the descending colon and there appeared to be some mild diverticular changes. Scope was brought back the rectum and this appeared normal. Scope was withdrawn for patient.
[2017-09-30 10:08] VITALS: BP 144/78; PULSE 66
== END 2017-09-30 10:32 | disposition home or self-care (01) ==
LOC: ORWHC2ENDO 07:39
PROVIDERS: ATTEND Surgery
DX: K21.9 Gastro-esophageal reflux disease without esophagitis (principal); M19.90 Unspecified osteoarthritis, unspecified site; K64.4 Residual hemorrhoidal skin tags; I10 Essential (primary) hypertension; K57.30 Diverticulosis of large intestine without perforation or abscess without bleeding; E78.5 Hyperlipidemia, unspecified; G40.909 Epilepsy, unspecified, not intractable, without status epilepticus; Z90.49 Acquired absence of other specified parts of digestive tract; F41.9 Anxiety disorder, unspecified; F32.9 Major depressive disorder, single episode, unspecified; Z98.61 Coronary angioplasty status; Z79.899 Other long term (current) drug therapy; Z88.5 Allergy status to narcotic agent; Z88.1 Allergy status to other antibiotic agents; Z88.2 Allergy status to sulfonamides
CPT/HCPCS: 88305; 45378; 43239; J2704

== ENCOUNTER 2017-10-09 22:02 | Inpatient (IN) | payer MEDICARE ==
[2017-10-09 22:17] LABS: Glucose,Whole Blood 145 mg/dL (75-99)
--- NOTE | 2017-10-09 22:27 | ED ---
General Adult HPI - General Chief complaint: Recheck/Abnormal Lab/Rx Stated complaint: Syncope Time Seen by Provider: 10/09/17 22:08 Source: patient, EMS, RN notes reviewed Mode of arrival: EMS Limitations: no limitations - History of Present Illness Initial comments: Patient is a pleasant 67-year-old female presenting to the emergency department following syncopal episode. Episode occurred prior to arrival. Patient does not recall the episode. Patient did not feel confused following the episode. Patient did have a similar episode several days ago. Patient also had 2 generalized tonic-clonic seizures within the past couple of weeks. No seizure activity was witnessed today. Episode was witnessed by the patient's sister. Patient does feel fine at this time and has no complaints. No chest pain or dyspnea. No abdominal pain. No confusion or weakness. Patient denies any injury. - Related Data Home Medications Medication Instructions Recorded Confirmed Atorvastatin [Lipitor] 10 mg PO HS 09/21/13 10/09/17 Cyclobenzaprine [Flexeril] 10 mg PO BID PRN 09/21/13 10/09/17 LORazepam [Lorazepam] 0.5 mg PO TID PRN 09/21/13 10/09/17 Levothyroxine Sodium [Synthroid] 50 mcg PO DAILY 09/21/13 10/09/17 Meclizine [Antivert] 25 mg PO TID PRN 09/21/13 10/09/17 Omeprazole 20 mg PO BID 09/21/13 10/09/17 Potassium Chloride [Potassium 20 meq PO DAILY 09/21/13 10/09/17 Chloride ER] Cyanocobalamin [Vitamin B-12] 500 mcg PO DOWLING 04/28/15 10/09/17 buPROPion XL [Wellbutrin XL] 150 mg PO HS 04/28/15 10/09/17 levETIRAcetam [Keppra] 1,000 mg PO Q12HR 04/28/15 10/09/17 Zolpidem Tartrate 10 mg PO HS 02/12/16 10/09/17 Carvedilol [Coreg] 3.125 mg PO BID 02/14/16 10/09/17 Citalopram Hydrobromide [CeleXA] 40 mg PO DAILY 08/29/17 10/09/17 Fycompa 4 Mg 4 mg PO HS 09/25/17 10/09/17 Ibuprofen [Motrin] 600 mg PO Q8HR PRN 09/25/17 10/09/17 Azithromycin [Zithromax Z-pack] See Taper PO DAILY 10/09/17 10/09/17 valACYclovir [Valtrex] 500 mg PO TID 10/09/17 10/09/17 Allergies Allergy/AdvReac Type Severity Reaction Status Date / Time ciprofloxacin [From Cipro] Allergy Unknown Verified 10/09/17 23:08 ciprofloxacin HCl Allergy Unknown Verified 10/09/17 23:08 [From Cipro] hydromorphone [From Dilaudid] Allergy Rash/Hives Verified 10/09/17 23:08 soy Allergy Anaphylaxis Verified 10/09/17 23:08 tetracycline [Tetracycline] Allergy Rash/Hives Verified 10/09/17 23:08 tioconazole [From Monistat 1] Allergy Rash/Hives Verified 10/09/17 23:08 codeine AdvReac Rash/Hives Verified 10/09/17 23:08 hydrocodone bitartrate AdvReac Rash/Hives Verified 10/09/17 23:08 [From Lortab] meperidine HCl [From Demerol] AdvReac Rash/Hives Verified 10/09/17 23:08 morphine AdvReac Rash/Hives Verified 10/09/17 23:08 propoxyphene napsylate AdvReac Rash/Hives Verified 10/09/17 23:08 [From Darvocet-N 100] Sulfa (Sulfonamide AdvReac Rash/Hives Verified 10/09/17 23:08 Antibiotics) Review of Systems ROS Statement: Those systems with pertinent positive or pertinent negative responses have been documented in the HPI. ROS Other: All systems not noted in ROS Statement are negative. Constitutional: Denies: fever Eyes: Denies: eye pain ENT: Denies: ear pain Respiratory: Denies: cough, dyspnea Cardiovascular: Denies: chest pain Endocrine: Denies: fatigue Gastrointestinal: Denies: abdominal pain Genitourinary: Denies: dysuria Musculoskeletal: Denies: back pain Skin: Denies: rash Neurological: Denies: headache, weakness, confusion Past Medical History Past Medical History: GERD/Reflux, GI Bleed, Hyperlipidemia, Hypertension, Osteoarthritis (OA), Seizure Disorder, Thyroid Disorder Additional Past Medical History / Comment(s): LAST SEIZURE August, DIVERTICULITIS, STATES DIARRHEA FOR THE LAST 2 MONTHS., NECK AND BACK PAIN., KNEE PAIN., USES WALKER PRN., STATES HX OF GI BLEEDING. History of Any Multi-Drug Resistant Organisms: None Reported Past Surgical History: Back Surgery, Cholecystectomy, Heart Catheterization, Hernia Repair, Joint Replacement, Tonsillectomy Additional Past Surgical History / Comment(s): LAP BAND INSERTED & REMOVED, GASTRIC SLEEVE (2016), GINI TOTAL KNEES, CERVICAL FUSION (2-7), BOWEL RESECTION. , INCISIONAL HERNIA'S. STATES SEVERAL HEART CATHS-NO STENTS (DONE AT [facility]) Past Anesthesia/Blood Transfusion Reactions: No Reported Reaction Past Psychological History: Anxiety, Depression Smoking Status: Never smoker Past Alcohol Use History: None Reported Past Drug Use History: None Reported - Past Family History Mother Family Medical History: Pulmonary Embolus Additional Family Medical History / Comment(s): Multiple TIA's. Father Family Medical History: Cancer Additional Family Medical History / Comment(s): Lung Sister(s) Family Medical History: Cancer Additional Family Medical History / Comment(s): OVARIAN CANCER General Exam Limitations: no limitations General appearance: alert, in no apparent distress Head exam: Present: other (Mild ecchymosis right eyebrow without tenderness) Eye exam: Present: normal appearance, PERRL, EOMI. Absent: nystagmus ENT exam: Present: normal oropharynx Neck exam: Present: normal inspection Respiratory exam: Present: normal lung sounds bilaterally Cardiovascular Exam: Present: regular rate, normal rhythm Expanded Peripheral pulses: 2+: Radial (R), Radial (L), Dorsalis Pedis (R), Dorsalis Pedis (L) GI/Abdominal exam: Present: soft. Absent: tenderness Extremities exam: Present: normal inspection. Absent: pedal edema, calf tenderness Neurological exam: Present: alert, oriented X3, CN II-XII intact. Absent: motor sensory deficit Expanded Neurological exam: Present: protecting the airway Patient oriented to: Present: person, place, time Speech: Present: fluid speech Cranial nerves: EOM's Intact: Normal, Facial Sensation: Normal Sensory exam: Upper Extremity Light Touch: Normal, Lower Extremity Light Touch: Normal Motor strength exam: RUE: 5, LUE: 5, RLE: 5, LLE: 5 Eye Response: (4) open spontaneously Motor Response: (6) obeys commands Verbal Response: (5) oriented Psychiatric exam: Present: normal affect, normal mood Skin exam: Present: normal color Course Vital Signs 10/09/17 22:06 Temperature 97.6 F Pulse Rate 77 Respiratory 16 Rate Blood Pressure 139/86 O2 Sat by Pulse 94 L Oximetry EKG Findings - EKG Comments: EKG Findings:: Normal sinus rhythm 76. MD 186. QRS 88. QT 392. QTC 441. Left axis. LVH criteria. Septal Q waves. No acute ST change. Medical Decision Making - Medical Decision Making Patient reevaluated and resting comfortably in bed. Patient updated on results and plan. Case was discussed in detail with Dr. Menendez, who will admit his patient. - Lab Data Result diagrams: 10/09/17 22:30 10/09/17 22:30 Lab Results 10/09/17 10/09/17 10/09/17 Range/Units 22:11 22:30 22:30 WBC 7.5 (3.8-10.6) k/uL RBC 4.78 (3.80-5.40) m/uL Hgb 11.9 (11.4-16.0) gm/dL Hct 38.0 (34.0-46.0) % MCV 79.5 L (80.0-100.0) fL MCH 25.0 (25.0-35.0) pg MCHC 31.5 (31.0-37.0) g/dL RDW 14.4 (11.5-15.5) % Plt Count 318 (150-450) k/uL Neutrophils % 46 % Lymphocytes % 38 % Monocytes % 7 % Eosinophils % 7 % Basophils % 1 % Neutrophils # 3.5 (1.3-7.7) k/uL Lymphocytes # 2.8 (1.0-4.8) k/uL Monocytes # 0.5 (0-1.0) k/uL Eosinophils # 0.5 (0-0.7) k/uL Basophils # 0.0 (0-0.2) k/uL Hypochromasia Slight PT (9.0-12.0) sec INR (<1.2) APTT (22.0-30.0) sec Sodium (137-145) mmol/L Potassium (3.5-5.1) mmol/L Chloride (98-107) mmol/L Carbon Dioxide (22-30) mmol/L Anion Gap mmol/L BUN (7-17) mg/dL Creatinine (0.52-1.04) mg/dL Est GFR (CKD-EPI)AfAm (>60 ml/min/1.73 sqM) Est GFR (CKD-EPI)NonAf (>60 ml/min/1.73 sqM) Glucose (74-99) mg/dL POC Glucose (mg/dL) 145 H (75-99) mg/dL POC Glu Grill Attendant ID Anabella Mtz Calcium (8.4-10.2) mg/dL Magnesium (1.6-2.3) mg/dL Total Bilirubin (0.2-1.3) mg/dL AST (14-36) U/L ALT (9-52) U/L Alkaline Phosphatase (38-126) U/L Total Creatine Kinase 35 (30-135) U/L CK-MB (CK-2) <0.2 (0.0-2.4) ng/mL CK-MB (CK-2) Rel Index Troponin I <0.012 (0.000-0.034) ng/mL Total Protein (6.3-8.2) g/dL Albumin (3.5-5.0) g/dL 10/09/17 10/09/17 Range/Units 22:30 22:30 WBC (3.8-10.6) k/uL RBC (3.80-5.40) m/uL Hgb (11.4-16.0) gm/dL Hct (34.0-46.0) % MCV (80.0-100.0) fL MCH (25.0-35.0) pg MCHC (31.0-37.0) g/dL RDW (11.5-15.5) % Plt Count (150-450) k/uL Neutrophils % % Lymphocytes % % Monocytes % % Eosinophils % % Basophils % % Neutrophils # (1.3-7.7) k/uL Lymphocytes # (1.0-4.8) k/uL Monocytes # (0-1.0) k/uL Eosinophils # (0-0.7) k/uL Basophils # (0-0.2) k/uL Hypochromasia PT 9.5 (9.0-12.0) sec INR 1.0 (<1.2) APTT 18.8 L (22.0-30.0) sec Sodium 139 (137-145) mmol/L Potassium 4.4 (3.5-5.1) mmol/L Chloride 108 H (98-107) mmol/L Carbon Dioxide 20 L (22-30) mmol/L Anion Gap 11 mmol/L BUN 9 (7-17) mg/dL Creatinine 0.86 (0.52-1.04) mg/dL Est GFR (CKD-EPI)AfAm 81 (>60 ml/min/1.73 sqM) Est GFR (CKD-EPI)NonAf 70 (>60 ml/min/1.73 sqM) Glucose 129 H (74-99) mg/dL POC Glucose (mg/dL) (75-99) mg/dL POC Glu Grill Attendant ID Calcium 9.1 (8.4-10.2) mg/dL Magnesium 2.2 (1.6-2.3) mg/dL Total Bilirubin 0.3 (0.2-1.3) mg/dL AST 33 (14-36) U/L ALT 34 (9-52) U/L Alkaline Phosphatase 133 H (38-126) U/L Total Creatine Kinase (30-135) U/L CK-MB (CK-2) (0.0-2.4) ng/mL CK-MB (CK-2) Rel Index Troponin I (0.000-0.034) ng/mL Total Protein 6.3 (6.3-8.2) g/dL Albumin 3.7 (3.5-5.0) g/dL - Radiology Data Radiology results: report reviewed (Computed tomography scan of the brain shows no acute process.), image reviewed (Two-view chest x-ray shows no acute process) Disposition Clinical Impression: Syncope Disposition: ADMITTED IP TO THIS [facility] Is patient prescribed a controlled substance at d/c from ED?: No Referrals: Cade Menendez DO [Primary Care Provider] - 1-2 days Decision Time: 23:54
[2017-10-09 22:51] LABS: Basophils % (A) 1 %; Eosinophils # (A) 0.5 k/uL (0-0.7); Eosinophils % (A) 7 %; HGB 11.9 gm/dL (11.4-16.0); Hypochromasia Slight; Lymphocytes # (A) 2.8 k/uL (1.0-4.8); Lymphocytes % (A) 38 %; MCHC 31.5 g/dL (31.0-37.0); MCV 79.5 fL (80.0-100.0); Mean Platelet Volume 7.5; Monocytes # (A) 0.5 k/uL (0-1.0); Monocytes % (A) 7 %; Neutrophils # (A) 3.5 k/uL (1.3-7.7); Neutrophils % (A) 46 %; Platelet Count 318 k/uL (150-450); RBC 4.78 m/uL (3.80-5.40); RDW 14.4 % (11.5-15.5); WBC 7.5 k/uL (3.8-10.6)
[2017-10-09 23:02] LABS: Albumin 3.7 g/dL (3.5-5.0); Calcium 9.1 mg/dL (8.4-10.2); Creatine Kinase 35 U/L (30-135); Magnesium 2.2 mg/dL (1.6-2.3); Potassium 4.4 mmol/L (3.5-5.1); Total Bilirubin 0.3 mg/dL (0.2-1.3); Total Protein 6.3 g/dL (6.3-8.2)
[2017-10-09 23:06] LABS: Prothrombin Time 9.5 sec (9.0-12.0)
[2017-10-09 23:07] LABS: Partial Thromboplastin Time 18.8 sec (22.0-30.0)
--- NOTE | 2017-10-09 23:15 | CT ---
EXAMINATION TYPE: CT brain wo con DATE OF EXAM: 10/09/2017 COMPARISON: 08/29/2017 HISTORY: Weakness, fall injuires CT DLP: 974.7 mGycm Automated exposure control for dose reduction was used. FINDINGS: Ventricles and sulci are normal for age. There is no mass effect nor midline shift. There is no sign of intracranial hemorrhage. The calvarium is intact. There is some mucosal thickening in the right si de sphenoid sinus. IMPRESSION: NEGATIVE CT SCAN OF THE BRAIN. THERE IS RIGHT-SIDED SPHENOID SINUSITIS THAT IS IMPROVED COMPARED TO O LD EXAM.
[2017-10-09 23:16] LABS: Creatine Kinase MB <0.2 ng/mL (0.0-2.4); Troponin I <0.012 ng/mL (0.000-0.034)
--- NOTE | 2017-10-09 23:16 | XR ---
EXAMINATION TYPE: XR chest 2V DATE OF EXAM: 10/09/2017 COMPARISON: 08/29/2017 HISTORY: Weakness TECHNIQUE: Frontal and lateral views of the chest are obtained. FINDINGS: Heart and mediastinum are normal. Lungs are clear. Diaphragm is normal. There are chest le ads. Bony thorax is intact. IMPRESSION: Normal chest. No change.
[2017-10-09] MEDS ORDERED: NALOXONE 0.4 MG/ML 1 ML VIAL IV PRN (23:54)
--- NOTE | 2017-10-10 00:23 | XR ---
EXAMINATION TYPE: XR finger RT DATE OF EXAM: 10/10/2017 COMPARISON: NONE HISTORY: Pain. After falling. TECHNIQUE: 3 views FINDINGS: There is a 5 mm chip fracture of the posterior base of the middle phalanx of the little fin nereyda right hand. There is no dislocation. There is mild spurring of the IP joints. IMPRESSION: Small chip fracture as above.
[2017-10-10 00:52] VITALS: BMI 37.7
[2017-10-10] MEDS ORDERED: ACETAMINOPHEN TAB 325 MG TAB PO PRN (01:11)
[2017-10-10] MEDS: SODIUM CHLORIDE 0.9% 1,000 ML IV SCH ×2 (02:15→21:47)
[2017-10-10 05:09] LABS: Creatine Kinase 32 U/L (30-135)
[2017-10-10 05:22] LABS: Creatine Kinase MB <0.2 ng/mL (0.0-2.4); Troponin I <0.012 ng/mL (0.000-0.034)
[2017-10-10] MEDS ORDERED: LORazepam 0.5 MG TAB PO PRN (09:55)
[2017-10-10] MEDS ORDERED: IBUPROFEN 600 MG TAB PO PRN (09:55)
[2017-10-10] MEDS ORDERED: MECLIZINE 25 MG TAB PO PRN (09:55)
[2017-10-10] MEDS ORDERED: levETIRAcetam 500 MG TAB PO SCH (10:00)
[2017-10-10 10:59] LABS: Creatine Kinase 32 U/L (30-135)
[2017-10-10 11:09] LABS: Creatine Kinase MB 0.3 ng/mL (0.0-2.4); Troponin I <0.012 ng/mL (0.000-0.034)
--- NOTE | 2017-10-10 11:56 | CONS ---
CONSULTATION Emily Torres is a 67-year-old female who presented with an episode of loss of consciousness. According to the ER note, she stated that she did not recall the episode, but when I asked her she said she lost consciousness, but had no warning at all. No chest pain. No dizziness. No lightheadedness. No breathing trouble. She stated the names of a few cardiologists that she saw, but that is incorrect. She saw Dr. Beatriz Hi in 2011 and was supposed to follow up again in 2016, but she did not present for a followup visit in the office. There are no recent records in the office. She apparently has had 2 generalized tonic-clonic seizures in the last few weeks and the episode was witnessed by his sister. MEDICATIONS: Atorvastatin, Flexeril, lorazepam, Synthroid, meclizine, omeprazole, potassium, cyanocobalamin, Wellbutrin, Keppra, carvedilol, Celexa, ibuprofen, Z-pack, and Valtrex. ALLERGIES: Allergies to CIPROFLOXACIN, HYDROMORPHONE, TETRACYCLINE, HYDROCODONE, PROPOXYPHENE, SULFA DRUGS. REVIEW OF SYSTEMS: I am not sure if her history is reliable, but she denies any chest discomfort. No dizziness. No shortness of breath, but she complains of episodes of syncope. PAST HISTORY: Past history of thyroid disorder, hypertension, dyslipidemia, seizure disorder. Last seizure was in August of 2010. She has a history of gastrointestinal bleeding. PAST SURGERIES: Back surgery, cholecystectomy, cardiac catheterization, knee replacement. FAMILY HISTORY: Family history of pulmonary embolism. PHYSICAL EXAMINATION: On examination, she is afebrile. Pulse rate in the 70s and 80s. Blood pressure is normal 139/86 mmHg. Respirations are normal. Head and neck examination is normal. Heart sounds are normal. Lungs are clear on auscultation. Extremities are warm. No edema. LABS: Labs are reviewed and white count is normal. Hemoglobin is normal. Electrolytes are normal. Glucose mildly elevated. Alkaline phosphatase is mildly elevated. Troponins are normal. IMPRESSION: 1. Episodes of loss of consciousness. 2. History of seizures. 3. History of essential hypertension. SUGGEST: 1. Telemetry monitoring to look for any bradyarrhythmias. 2. Check orthostatics. 3. Consider implantation of a loop monitor if according to the witness this was not a true seizure. MMODL / IJN: [id number] /
[2017-10-10] MEDS: POTASSIUM CHLORIDE ER 20 MEQ TAB.ER PO SCH (12:33)
[2017-10-10] MEDS: CARVEDILOL 3.125 MG TAB PO SCH ×2 (12:34→16:42)
[2017-10-10] MEDS: AZITHROMYCIN 250 MG TAB PO SCH (12:35)
[2017-10-10] MEDS: LEVOTHYROXINE 50 MCG TAB PO SCH (12:36)
[2017-10-10] MEDS: CITALOPRAM HYDROBROMIDE 20 MG TAB PO SCH (12:36)
[2017-10-10] MEDS: PANTOPRAZOLE 40 MG TABLET PO SCH ×2 (12:36→16:42)
--- NOTE | 2017-10-10 13:26 | P.CNNES ---
History of Present Illness Consult date: 10/10/17 Reason for Consult: Patient with acute syncopal episode. Has history of seizures. History of Present Illness: This patient is a 67-year-old right-handed white female who was brought into the emergency room at [facility] yesterday for evaluation of acute syncopal episode that occurred at home. According to the patient and 2 of her sisters who was at bedside she had an episode in which she passed out. She is not a very good historian but states she does have a history of underlying seizure disorder but felt this was somewhat different. She apparently had a similar episode a few days prior. Patient also is being treated for underlying seizure disorder which was diagnosed about 3 years ago for her. She is on 2 anticonvulsant medications. According to the patient she had 2 generalized tonic clonic seizure about 2 weeks ago. She contacted her neurologist who had a disc second anticonvulsant at that time. She states that she has not had recent anticonvulsant blood levels done but some were drawn in the ER and her pending at this time. Patient states she takes a combination of Keppra and Fycompa is primary anticonvulsant treatment. She has been taking Keppra thousand milligrams twice a day. Her levels are pending today. The patient states that she has no previous history of cardiac arrhythmia. She is being evaluated by cardiology and is currently being monitored by telemetry for signs of bradycardia arrhythmia. She is to be checked for orthostatic hypotension as well. Cardiology is recommending that she may require a loop monitor for further monitoring and workup. The patient states she typically takes all of her seizure medications on a regular basis. She has not had any recent EEG testing done. At this point we have recommending that she increase her dose of Keppra to 1250 mg twice a day. We will await the Keppra blood level to return from laboratory and adjust her dose as needed. We will also obtain a EEG today for further assessment. Patient should be placed on seizure precautions at this time. We will await further recommendations from cardiology. She is stating her last seizure was in August 2017. The patient otherwise seems to be comfortable at this time. She has had no further seizure- like events. Her overall prognosis at this time remains guarded. Review of Systems Constitutional: Denies chills, Denies fever Eyes: right irritation, denies blurred vision, denies pain Ears, nose, mouth and throat: Denies headache, Denies sore throat Cardiovascular: Denies chest pain, Denies shortness of breath Respiratory: Denies cough Gastrointestinal: Denies abdominal pain, Denies diarrhea, Denies nausea, Denies vomiting Genitourinary: Denies dysuria, Denies hematuria Musculoskeletal: Denies myalgias Integumentary: Denies pruritus, Denies rash Neurological: Reports confusion, Reports convulsions, Reports seizures, Denies numbness, Denies weakness Psychiatric: Denies anxiety, Denies depression Endocrine: Denies fatigue, Denies weight change Past Medical History Past Medical History: GERD/Reflux, GI Bleed, Hyperlipidemia, Hypertension, Osteoarthritis (OA), Seizure Disorder, Thyroid Disorder Additional Past Medical History / Comment(s): LAST SEIZURE August, DIVERTICULITIS, STATES DIARRHEA FOR THE LAST 2 MONTHS., NECK AND BACK PAIN., KNEE PAIN., USES WALKER PRN., STATES HX OF GI BLEEDING. History of Any Multi-Drug Resistant Organisms: None Reported Past Surgical History: Back Surgery, Cholecystectomy, Heart Catheterization, Hernia Repair, Joint Replacement, Tonsillectomy Additional Past Surgical History / Comment(s): LAP BAND INSERTED & REMOVED, GASTRIC SLEEVE (2016), GINI TOTAL KNEES, CERVICAL FUSION (2-7), BOWEL RESECTION. , INCISIONAL HERNIA'S. STATES SEVERAL HEART CATHS-NO STENTS (DONE AT [facility]) Past Anesthesia/Blood Transfusion Reactions: No Reported Reaction Past Psychological History: Anxiety, Depression Smoking Status: Never smoker Past Alcohol Use History: None Reported Past Drug Use History: None Reported - Past Family History Mother Family Medical History: Pulmonary Embolus Additional Family Medical History / Comment(s): Multiple TIA's. Father Family Medical History: Cancer Additional Family Medical History / Comment(s): Lung Sister(s) Family Medical History: Cancer Additional Family Medical History / Comment(s): OVARIAN CANCER Medications and Allergies Home Medications Medication Instructions Recorded Confirmed Type Atorvastatin [Lipitor] 10 mg PO HS 09/21/13 10/09/17 History Cyclobenzaprine [Flexeril] 10 mg PO BID PRN 09/21/13 10/09/17 History LORazepam [Lorazepam] 0.5 mg PO TID PRN 09/21/13 10/09/17 History Levothyroxine Sodium [Synthroid] 50 mcg PO DAILY 09/21/13 10/09/17 History Meclizine [Antivert] 25 mg PO TID PRN 09/21/13 10/09/17 History Omeprazole 20 mg PO BID 09/21/13 10/09/17 History Potassium Chloride [Potassium 20 meq PO DAILY 09/21/13 10/09/17 History Chloride ER] Cyanocobalamin [Vitamin B-12] 500 mcg PO DOWLING 04/28/15 10/09/17 History buPROPion XL [Wellbutrin XL] 150 mg PO HS 04/28/15 10/09/17 History levETIRAcetam [Keppra] 1,000 mg PO Q12HR 04/28/15 10/09/17 History Zolpidem Tartrate 10 mg PO HS 02/12/16 10/09/17 History Carvedilol [Coreg] 3.125 mg PO BID 02/14/16 10/09/17 History Citalopram Hydrobromide [CeleXA] 40 mg PO DAILY 08/29/17 10/09/17 History Fycompa 4 Mg 4 mg PO HS 09/25/17 10/09/17 History Ibuprofen [Motrin] 600 mg PO Q8HR PRN 09/25/17 10/09/17 History Azithromycin [Zithromax Z-pack] See Taper PO DAILY 10/09/17 10/09/17 History valACYclovir [Valtrex] 500 mg PO TID 10/09/17 10/09/17 History Allergies Allergy/AdvReac Type Severity Reaction Status Date / Time ciprofloxacin [From Cipro] Allergy Unknown Verified 10/09/17 23:08 ciprofloxacin HCl Allergy Unknown Verified 10/09/17 23:08 [From Cipro] hydromorphone [From Dilaudid] Allergy Rash/Hives Verified 10/09/17 23:08 soy Allergy Anaphylaxis Verified 10/09/17 23:08 tetracycline [Tetracycline] Allergy Rash/Hives Verified 10/09/17 23:08 tioconazole [From Monistat 1] Allergy Rash/Hives Verified 10/09/17 23:08 codeine AdvReac Rash/Hives Verified 10/09/17 23:08 hydrocodone bitartrate AdvReac Rash/Hives Verified 10/09/17 23:08 [From Lortab] meperidine HCl [From Demerol] AdvReac Rash/Hives Verified 10/09/17 23:08 morphine AdvReac Rash/Hives Verified 10/09/17 23:08 propoxyphene napsylate AdvReac Rash/Hives Verified 10/09/17 23:08 [From Darvocet-N 100] Sulfa (Sulfonamide AdvReac Rash/Hives Verified 10/09/17 23:08 Antibiotics) Physical Examination - Vital Signs Vital Signs: Vital Signs Temp Pulse Pulse Resp BP BP Pulse Ox 10/10/17 04:00 98.1 F 80 16 137/79 97 10/10/17 00:20 97.6 F 78 16 108/79 97 10/10/17 00:18 66 17 126/71 98 10/09/17 22:06 97.6 F 77 16 139/86 94 L Intake and Output 10/09/17 10/10/17 10/10/17 22:59 06:59 14:59 Intake Total 240 236 Balance 240 236 Intake: Oral 240 236 Other: # Voids 2 Weight 87.543 kg 87.6 kg - Constitutional General appearance: average body habitus, cooperative - EENT EENT: PERRL, mucous membranes moist - Respiratory Respiratory: lungs clear, normal breath sounds - Cardiovascular Cardiovascular: regular rate, normal S1, normal S2 Extremities: no peripheral edema bilaterally - Gastrointestinal Gastrointestinal: normoactive bowel sounds - Integumentary Integumentary: normal - Neurologic Cranial nerve examination: PERRL, EOMI, VFF, V1/V2/V3 grossly intact, face symmetric, tongue midline, intact gag reflex, intact corneal reflex, normal palatal elevation Speech examination: intact Sensorimotor examination: intact Motor examination - right side: 4/5: biceps, triceps, wrist flexion, wrist extension, space officer, hip flexors, knee extensors, dorsiflexion, toe extension (EHL) , plantarflexion Motor examination - left side: 4/5: biceps, triceps, wrist flexion, wrist extension, space officer, hip flexors, knee extensors, dorsiflexion, toe extension (EHL) , plantarflexion Detailed sensory examination: intact Reflex and gait examination: intact Reflexes: 1+: ankle, bicep, knee, tricep - Musculoskeletal Musculoskeletal: no pain - Psychiatric Psychiatric: mood/affect appropriate, cooperative Results - Laboratory Findings CBC and BMP: 10/09/17 22:30 10/09/17 22:30 Abnormal Lab Findings: Abnormal Labs 10/09/17 10/09/17 10/09/17 22:11 22:30 22:30 MCV 79.5 L APTT Chloride 108 H Carbon Dioxide 20 L Glucose 129 H POC Glucose (mg/dL) 145 H Alkaline Phosphatase 133 H 10/09/17 22:30 MCV APTT 18.8 L Chloride Carbon Dioxide Glucose POC Glucose (mg/dL) Alkaline Phosphatase Assessment and Plan (1) Seizure disorder Current Visit: Yes Status: Acute Code(s): G40.909 - EPILEPSY, UNSP, NOT INTRACTABLE, WITHOUT STATUS EPILEPTICUS SNOMED Code(s): 012267836 (2) Syncope Current Visit: Yes Status: Acute Code(s): R55 - SYNCOPE AND COLLAPSE SNOMED Code(s): 629926402 (3) Fall Current Visit: No Status: Acute Code(s): W19.XXXA - UNSPECIFIED FALL, INITIAL ENCOUNTER SNOMED Code(s): 4296869 (4) Chest pain Current Visit: No Status: Acute Code(s): R07.9 - CHEST PAIN, UNSPECIFIED SNOMED Code(s): 40720998 Plan: This patient is a 67-year-old female being evaluated for recent episode of syncope and underlying seizure disorder. Patient has a history of seizures dating back 3 years ago. She is currently on 2 anticonvulsant medications. She apparently had 2 generalized tonic-clonic seizures 2 weeks ago and her anticonvulsant medications were adjusted by her neurologist. She is currently taking combination of Keppra and Fycompa. Her Keppra level was drawn this morning and is still pending from the laboratory. She is being evaluated by cardiology for possibility of cardiogenic syncope. Her CAT scan of the brain failed to reveal any acute changes. There was evidence of right-sided sinusitis. The patient was advised to increase her dose of Keppra to 1250 mg twice a day. We will obtain a routine EEG for further evaluation. Clinical history suggests possibility of breakthrough seizures as a cause for her syncope and collapse. We will await further recommendations from cardiology however regarding stability of cardiogenic syncope. We have recommended seizure precautions for the patient. She is advised that the [place] driving law which states she cannot drinker. To 6 months following her last seizure episode. She is aware of this restriction. Overall prognosis at this time remains guarded. Time with Patient: Greater than 30
--- NOTE | 2017-10-10 17:47 | EEG ---
ELECTROENCEPHALOGRAM REPORT DATE OF EE10/10/2017. REFERRING PHYSICIAN: Dr. Menendez. CONSULTING AND INTERPRETING PHYSICIAN: Dr. Abril Berman. INDICATION FOR EXAMINATION: This patient is a 67-year-old female being evaluated for syncopal episode versus seizure. Patient has history of underlying seizure disorder. AGE: 67. EEG FINDINGS: A routine 21 channel awake digital EEG recording was accomplished utilizing the 10-20 international system with bipolar and referential montages. The background activity in the most alert resting state consists of a low to medium amplitude, fairly well developed and well sustained 8 Hz activity over the posterior head regions. This posterior rhythm attenuates to eye opening. There is a small amount of low amplitude 18-20 Hz beta activity seen maximally over the anterior head regions. Muscle and movement artifact was observed on a few occasions during the tracing. Hyperventilation was not performed. Photic stimulation at flash frequencies of 2-30 Hz produced a good symmetrical occipital driving response. No epileptiform discharges were seen. IMPRESSION: This EEG is within normal limits for the patient's age. The EEG failed to reveal any focal, lateralized or epileptiform abnormalities. Clinical correlation is recommended. MMODL / IJN: [id number] /
[2017-10-10] MEDS: ATORVASTATIN 10 MG TAB PO SCH (21:29)
[2017-10-10] MEDS: levETIRAcetam 500 MG TAB PO SCH (21:29)
[2017-10-10] MEDS: buPROPion XL 150 MG TAB.ER.24H PO SCH (21:29)
[2017-10-10] MEDS: ZOLPIDEM 10 MG TAB PO SCH (21:30)
[2017-10-10] MEDS: levETIRAcetam 250 MG TAB PO SCH (21:30)
[2017-10-10] MEDS: FYCOMPA PO SCH (21:46)
[2017-10-11] MEDS: CARVEDILOL 3.125 MG TAB PO SCH (06:12)
[2017-10-11] MEDS: LEVOTHYROXINE 50 MCG TAB PO SCH (06:12)
[2017-10-11] MEDS: PANTOPRAZOLE 40 MG TABLET PO SCH ×2 (06:12→19:14)
[2017-10-11] MEDS: AZITHROMYCIN 250 MG TAB PO SCH (08:59)
[2017-10-11] MEDS: levETIRAcetam 250 MG TAB PO SCH ×2 (08:59→21:49)
[2017-10-11] MEDS: POTASSIUM CHLORIDE ER 20 MEQ TAB.ER PO SCH (09:00)
[2017-10-11] MEDS: levETIRAcetam 500 MG TAB PO SCH ×2 (09:00→21:49)
[2017-10-11] MEDS: CITALOPRAM HYDROBROMIDE 20 MG TAB PO SCH (09:00)
[2017-10-11] MEDS ORDERED: LIDOCAINE 2% INJ 20 MG/ML SQ ONE (10:25)
[2017-10-11] MEDS ORDERED: LIDOCAINE 2% SYG (PF) 100 MG/5 ML MISCELLANE ONE ×2 (10:25)
[2017-10-11] MEDS ORDERED: SODIUM CHLORIDE 0.9% 500 ML IV ONE (10:29)
--- NOTE | 2017-10-11 10:58 | P.PCN ---
Preoperative Diagnosis: Transvenous temporary pacing procedure Indication for the procedure: History of recurrent loss of consciousness, paroxysmal complete heart block, abrupt documented on telemetry with a very long pauses Patient was brought to the EP lab in a fasting state. Written informed consent was obtained prior to the procedure. The right groin was prepped and draped as a protocol. A 6-Yakut sheath was placed in the right femoral vein. Via this, a temporary pacing catheter was placed in the right ventricle. Thresholds were interrogated. Temporary pacing was performed through the rest of the procedure. At the end of the entire procedure, the TVP was removed. The sheath was removed and hemostasis was assured. Patient tolerated the procedure well without any acute complications. Procedure performed Transvenous temporary pacing for paroxysmal AV block Plan Dual-chamber pacemaker implant tomorrow Conscious sedation Patient underwent EP procedure/TVP under conscious sedation/moderate sedation, monitoring of the level of consciousness and physiologic parameters including but not limited to vital signs and oxygenation. Patient tolerated the procedure well without any acute complications. Start time: 1022 Stop time: 1042 20 minutes Anesthesia: local, other
[2017-10-11 11:00] LABS: Glucose,Whole Blood 101 mg/dL (75-99)
[2017-10-11] MEDS ORDERED: SODIUM CHLORIDE 0.9% 1,000 ML IV SCH (11:15)
--- NOTE | 2017-10-11 11:30 | PN ---
PROGRESS NOTE Emily Torres is a 67-year-old female who has had recurrent episodes of loss of consciousness, possibly seizures, with injury. Her 12-lead ECG was normal yesterday and rhythms were normal this morning when I rounded early in the morning. Overnight she had no tachy- or bradyarrhythmias. She was lying comfortably in bed when I saw her early this morning. Her vitals were stable; afebrile at 97.4 degrees Fahrenheit, pulse rate in the 60s, respirations normal, blood pressure 134/62 mmHg. Heart sounds were normal. Breath sounds were clear. Abdomen was soft, extremities warm. IMPRESSION: 1. Recurrent episodes of loss of consciousness of an unclear etiology with a normal ECG, normal potassium. 2. Hypertension. 3. Obesity. 4. History of thyroid disorder. I discussed this with the patient and suggested continued telemetry monitoring for now, but if no clear-cut answer was available, then implantation of a monitor may be considered to look for any bradyarrhythmias. After about 2 hours, she had an episode of paroxysmal AV block. The nurse came to me to show me a strip that was caught on telemetry. She had paroxysmal AV block with a very long pause of greater than 10 seconds. This was abrupt, but no one was in the room at that time. The patient states that she did not feel anything. She did not realize that this had happened. IMPRESSION: Paroxysmal AV block as the likely cause for her episodes of loss of consciousness. The convulsive activity that was noted at that time was most likely related to cerebral hypoperfusion and was not a true seizure. SUGGEST: Urgent transvenous temporary pacing today and implantation of a permanent pacemaker thereafter. This was discussed with the patient. MMODL / IJN: [id number] /
--- NOTE | 2017-10-11 12:29 | P.HPIM ---
History of Present Illness This is a 67 years old female with past medical history of GI bleed, GERD, hypertension, hyperlipidemia, ARTHRITIS, seizure disorder, thyroid disorder,. Who presents because of recurrent syncope. Patient was found to have 3 and later on 5 seconds pause and her telemetry strip. Patient was evaluated by cardiology and temporal pacemaker was inserted urgently and admitted to the intensive care unit. 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 There was suspicion that given her previous convulsive episodes were related to her hypo-profusion of from AV cindy disease rather than true seizure. However patient is on Keppra. She had another, pulse and episodes about 2 weeks ago and her medications were adjusted by her neurologist to Keppra and Fycomps. Neurologist increased the dose of Keppra to 1250 mg twice a day and EEG testing. Review of Systems CONSTITUTIONAL: No fever, no malaise, no fatigue. HEENT: No recent visual problems or hearing problems. Denied any sore throat. CARDIOVASCULAR: No orthopnea, PND, no palpitations, no syncope. PULMONARY: No shortness of breath, no cough, no hemoptysis. GASTROINTESTINAL: No diarrhea, no nausea, no vomiting, no abdominal pain. Normoactive bowel sounds. NEUROLOGICAL: No headaches, no weakness, no numbness. HEMATOLOGICAL: Denies any bleeding or petechiae. GENITOURINARY: Denies any burning micturition, frequency, or urgency. MUSCULOSKELETAL/RHEUMATOLOGICAL: Denies any joint pain, swelling, or any muscle pain. ENDOCRINE: Denies any polyuria or polydipsia. Past Medical History Past Medical History: GERD/Reflux, GI Bleed, Hyperlipidemia, Hypertension, Osteoarthritis (OA), Seizure Disorder, Thyroid Disorder Additional Past Medical History / Comment(s): LAST SEIZURE August, DIVERTICULITIS, STATES DIARRHEA FOR THE LAST 2 MONTHS., NECK AND BACK PAIN., KNEE PAIN., USES WALKER PRN., STATES HX OF GI BLEEDING. History of Any Multi-Drug Resistant Organisms: None Reported Past Surgical History: Back Surgery, Cholecystectomy, Heart Catheterization, Hernia Repair, Joint Replacement, Tonsillectomy Additional Past Surgical History / Comment(s): LAP BAND INSERTED & REMOVED, GASTRIC SLEEVE (2016), GINI TOTAL KNEES, CERVICAL FUSION (2-7), BOWEL RESECTION. , INCISIONAL HERNIA'S. STATES SEVERAL HEART CATHS-NO STENTS (DONE AT [facility] & [facility]) Past Anesthesia/Blood Transfusion Reactions: No Reported Reaction Past Psychological History: Anxiety, Depression Smoking Status: Never smoker Past Alcohol Use History: None Reported Past Drug Use History: None Reported - Past Family History Mother Family Medical History: Pulmonary Embolus Additional Family Medical History / Comment(s): Multiple TIA's. Father Family Medical History: Cancer Additional Family Medical History / Comment(s): Lung Sister(s) Family Medical History: Cancer Additional Family Medical History / Comment(s): OVARIAN CANCER Medications and Allergies Home Medications Medication Instructions Recorded Confirmed Type Atorvastatin [Lipitor] 10 mg PO HS 09/21/13 10/09/17 History Cyclobenzaprine [Flexeril] 10 mg PO BID PRN 09/21/13 10/09/17 History LORazepam [Lorazepam] 0.5 mg PO TID PRN 09/21/13 10/09/17 History Levothyroxine Sodium [Synthroid] 50 mcg PO DAILY 09/21/13 10/09/17 History Meclizine [Antivert] 25 mg PO TID PRN 09/21/13 10/09/17 History Omeprazole 20 mg PO BID 09/21/13 10/09/17 History Potassium Chloride [Potassium 20 meq PO DAILY 09/21/13 10/09/17 History Chloride ER] Cyanocobalamin [Vitamin B-12] 500 mcg PO DOWLING 04/28/15 10/09/17 History buPROPion XL [Wellbutrin XL] 150 mg PO HS 04/28/15 10/09/17 History levETIRAcetam [Keppra] 1,000 mg PO Q12HR 04/28/15 10/09/17 History Zolpidem Tartrate 10 mg PO HS 02/12/16 10/09/17 History Carvedilol [Coreg] 3.125 mg PO BID 02/14/16 10/09/17 History Citalopram Hydrobromide [CeleXA] 40 mg PO DAILY 08/29/17 10/09/17 History Fycompa 4 Mg 4 mg PO HS 09/25/17 10/09/17 History Ibuprofen [Motrin] 600 mg PO Q8HR PRN 09/25/17 10/09/17 History Azithromycin [Zithromax Z-pack] See Taper PO DAILY 10/09/17 10/09/17 History valACYclovir [Valtrex] 500 mg PO TID 10/09/17 10/09/17 History Allergies Allergy/AdvReac Type Severity Reaction Status Date / Time ciprofloxacin [From Cipro] Allergy Unknown Verified 10/09/17 23:08 ciprofloxacin HCl Allergy Unknown Verified 10/09/17 23:08 [From Cipro] hydromorphone [From Dilaudid] Allergy Rash/Hives Verified 10/09/17 23:08 soy Allergy Anaphylaxis Verified 10/09/17 23:08 tetracycline [Tetracycline] Allergy Rash/Hives Verified 10/09/17 23:08 tioconazole [From Monistat 1] Allergy Rash/Hives Verified 10/09/17 23:08 codeine AdvReac Rash/Hives Verified 10/09/17 23:08 hydrocodone bitartrate AdvReac Rash/Hives Verified 10/09/17 23:08 [From Lortab] meperidine HCl [From Demerol] AdvReac Rash/Hives Verified 10/09/17 23:08 morphine AdvReac Rash/Hives Verified 10/09/17 23:08 propoxyphene napsylate AdvReac Rash/Hives Verified 10/09/17 23:08 [From Darvocet-N 100] Sulfa (Sulfonamide AdvReac Rash/Hives Verified 10/09/17 23:08 Antibiotics) Physical Exam Vitals: Vital Signs Temp Pulse Resp BP BP BP Pulse Ox 10/11/17 09:00 96.8 F L 70 18 143/74 94 L 10/11/17 04:00 97.4 F L 64 16 134/62 94 L 10/11/17 00:00 97.0 F L 61 16 126/61 100 10/10/17 20:00 96.9 F L 71 18 175/69 98 10/10/17 16:00 97.0 F L 63 18 137/73 97 Intake and Output 10/10/17 10/11/17 10/11/17 22:59 06:59 14:59 Intake Total 240 240 Balance 240 240 Intake: Oral 240 240 Other: # Voids 1 2 Weight 86.4 kg GENERAL: The patient is alert and oriented x3, not in any acute distress. Well developed, well nourished. HEENT: Pupils are round and equally reacting to light. EOMI. No scleral icterus. No conjunctival pallor. Normocephalic, atraumatic. No pharyngeal erythema. No thyromegaly. CARDIOVASCULAR: S1 and S2 present. No murmurs, rubs, or gallops. PULMONARY: Chest is clear to auscultation, no wheezing or crackles. ABDOMEN: Soft, nontender, nondistended, normoactive bowel sounds. No palpable organomegaly. MUSCULOSKELETAL: No joint swelling or deformity. EXTREMITIES: No cyanosis, clubbing, or pedal edema. NEUROLOGICAL: Gross neurological examination did not reveal any focal deficits. SKIN: No rashes. Results CBC & Chem 7: 10/09/17 22:30 10/09/17 22:30 Labs: Abnormal Lab Results - Last 24 Hours (Table) 10/11/17 Range/Units 10:58 POC Glucose (mg/dL) 101 H (75-99) mg/dL Thrombosis Risk Factor Assmnt - Choose All That Apply Each Factor Represents 1 point: Obesity (BMI >25) Each Risk Factor Represents 2 Points: Age 61-74 years Thrombosis Risk Factor Assessment Total Risk Factor Score: 3 Thrombosis Risk Factor Assessment Level: Moderate Risk Assessment and Plan Assessment: -Recurrent syncopal episodes. 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 Patient is status post temporal pacemaker inserted by the category consultant. And she plans to go for permanent pacemaker tomorrow. Patient also will be evaluated by neurologist with EEG. She has history of recurrent seizures last seizure was about 2 weeks ago. EEG is ordered and is pending. Patient into seizure medication, Keppra and Fycomps. On Keppra dose was increased to 1250 milligrams twice a day by neurologist. She looks dehydrated and needs some IV hydration. We will keep monitoring vitals and labs while in the ICU. Continue with DVT and GI prophylaxis. Further recommendation based on the clinical course Prognosis is guarded given the severity and complexity of her disease Time with Patient: Greater than 30
--- NOTE | 2017-10-11 16:14 | P.PN ---
Subjective Progress Note Date: 10/11/17 This patient is a 67-year-old female who was admitted to Hospital with episode of possible seizure activity versus acute syncope. Since hospitalization yesterday the patient showed evidence of AV cindy irregularity with several cardiac pauses noted on her cardiac rhythm strips. She was seen by cardiology and had a temporary pacemaker placement. She was transferred to the intensive care unit yesterday for close monitoring. Patient is resting comfortably at this time. She did undergo routine EEG yesterday which was reviewed and is normal for her age. There is no evidence of active epileptic seizure focus. We did discuss the results of the EEG today with the patient in the ICU. Given her history of AV cindy disease this is most likely cause of her recent spells of syncope and collapse. Patient states she is being scheduled for permanent pacemaker placement tomorrow. The patient has history of underlying seizure disorder for which she has been taking Keppra. Her Keppra blood level came back therapeutic today at 35.7. We will have her continue on current dose of Keppra. She is making very good progress in the ICU and we will continue to monitor for any recurrent spells. We will continue to follow the patient closely in the ICU setting. We will await further recommendations from cardiology. Her overall prognosis at this time remains guarded. Objective - Vital Signs Vital signs: Vital Signs Temp 96.8 F L 10/11/17 09:00 Pulse 70 10/11/17 09:00 Resp 18 10/11/17 09:00 BP 143/74 10/11/17 09:00 Pulse Ox 94 L 10/11/17 09:00 Intake & Output 10/10/17 10/11/17 10/11/17 18:59 06:59 18:59 Intake Total 712 240 Balance 712 240 Weight 86.4 kg Intake: Oral 712 240 Other: # Voids 1 2 - Exam Physical examination: PHYSICAL EXAMINATION: Patient is resting comfortably in bed. VITAL SIGNS: Blood pressure is [143/74]. Heart rate is [70]. Respiration is [18] . Temperature is [96.8]. HEENT: Head is atraumatic, neck is supple, there were no carotid bruits. CHEST: Lungs are clear to auscultation and percussion. CARDIAC: S1, S2 normal rate and rhythm. There is no murmur. ABDOMEN: Soft and nontender. Bowel sounds are present. EXTREMITIES: There is no pedal edema. Peripheral pulses are present. Neurological examination: Patient has a nonfocal neurological examination today in the ICU. - Labs CBC & Chem 7: 10/09/17 22:30 10/09/17 22:30 Labs: Abnormal Lab Results - Last 24 Hours (Table) 10/11/17 Range/Units 10:58 POC Glucose (mg/dL) 101 H (75-99) mg/dL Assessment and Plan (1) Seizure disorder Current Visit: Yes Status: Acute Code(s): G40.909 - EPILEPSY, UNSP, NOT INTRACTABLE, WITHOUT STATUS EPILEPTICUS SNOMED Code(s): 761763236 (2) Syncope Current Visit: Yes Status: Acute Code(s): R55 - SYNCOPE AND COLLAPSE SNOMED Code(s): 511755491 (3) Fall Current Visit: No Status: Acute Code(s): W19.XXXA - UNSPECIFIED FALL, INITIAL ENCOUNTER SNOMED Code(s): 3233386 (4) Chest pain Current Visit: No Status: Acute Code(s): R07.9 - CHEST PAIN, UNSPECIFIED SNOMED Code(s): 34829637 Plan: This patient is a 67-year-old female who was admitted hospital with episode of syncope versus seizure. She has a history of underlying seizure disorder and her Keppra level was adjusted yesterday on admission. Her Keppra blood level today came back therapeutic at 35.7. She underwent routine EEG which was reviewed and is normal for her age. Patient was found to have evidence of cardiac pause lasting up to 5 seconds in duration. She had a temporary pacemaker placement and was transferred to the ICU yesterday. Patient is resting comfortably and is closely monitored in the ICU. She is scheduled to undergo permanent pacemaker placement tomorrow. We will continue to follow her progress closely. All test results were discussed today with the patient in the ICU. She seems to be alert and oriented appropriately and we will continue to monitor her condition closely during this admission. Her overall prognosis at this time remains guarded.
[2017-10-11] MEDS: SODIUM CHLORIDE 0.9% 1,000 ML IV SCH (18:48)
[2017-10-11 19:03] LABS: Appearance,Urine Clear (Clear); Bilirubin,Urine Negative (Negative); Blood,Urine Moderate (Negative); Color,Urine Light Yellow; Glucose,Urine (UA) Negative (Negative); Ketones,Urine Negative (Negative); Leukocyte Esterase,Urine Negative (Negative); Nitrite,Urine Negative (Negative); PH, Urine 6.5 (5.0-8.0); Protein,Urine Negative (Negative); RBC,Urine <1 /hpf (0-5); Specific Gravity,Urine 1.008 (1.001-1.035); Urobilinogen,Urine <2.0 mg/dL (<2.0); WBC,Urine <1 /hpf (0-5)
[2017-10-11] MEDS: ZOLPIDEM 10 MG TAB PO SCH (21:49)
[2017-10-11] MEDS: buPROPion XL 150 MG TAB.ER.24H PO SCH (21:49)
[2017-10-11] MEDS: FYCOMPA PO SCH (21:50)
[2017-10-11] MEDS: ATORVASTATIN 10 MG TAB PO SCH (21:50)
[2017-10-12 04:50] LABS: Basophils % (A) 1 %; Eosinophils # (A) 0.3 k/uL (0-0.7); Eosinophils % (A) 4 %; HCT 39.8 % (34.0-46.0); HGB 12.6 gm/dL (11.4-16.0); Hypochromasia Slight; Lymphocytes # (A) 2.2 k/uL (1.0-4.8); Lymphocytes % (A) 29 %; MCH 25.4 pg (25.0-35.0); MCHC 31.8 g/dL (31.0-37.0); MCV 79.9 fL (80.0-100.0); Mean Platelet Volume 6.4; Monocytes # (A) 0.4 k/uL (0-1.0); Monocytes % (A) 6 %; Neutrophils # (A) 4.5 k/uL (1.3-7.7); Neutrophils % (A) 59 %; Platelet Count 286 k/uL (150-450); RBC 4.98 m/uL (3.80-5.40); RDW 14.3 % (11.5-15.5); WBC 7.6 k/uL (3.8-10.6)
[2017-10-12 04:55] LABS: Prothrombin Time 9.9 sec (9.0-12.0)
[2017-10-12 04:56] LABS: Anion Gap 6 mmol/L; Calcium 8.6 mg/dL (8.4-10.2); Carbon Dioxide 24 mmol/L (22-30); Chloride 108 mmol/L (98-107); Glucose 108 mg/dL (74-99); Sodium 138 mmol/L (137-145)
[2017-10-12 04:57] LABS: Blood Urea Nitrogen 15 mg/dL (7-17); Magnesium 2.3 mg/dL (1.6-2.3); Phosphorus 4.1 mg/dL (2.5-4.5); Potassium 4.7 mmol/L (3.5-5.1)
[2017-10-12] MEDS: PANTOPRAZOLE 40 MG TABLET PO SCH ×2 (06:59→18:47)
[2017-10-12] MEDS: LEVOTHYROXINE 50 MCG TAB PO SCH (06:59)
[2017-10-12] MEDS ORDERED: ceFAZolin IN SWFI 2 GM/20 ML SYRINGE IVP ONE (08:01)
[2017-10-12] MEDS ORDERED: ceFAZolin 1,000 MG in SODIUM CHLORIDE 0.9% IRRIGATIO 250 ML IRRIGATION ONE (08:01)
[2017-10-12] MEDS: SODIUM CHLORIDE 0.9% 1,000 ML IV SCH ×3 (08:34→20:43)
[2017-10-12] MEDS: AZITHROMYCIN 250 MG TAB PO SCH (09:14)
[2017-10-12] MEDS: CITALOPRAM HYDROBROMIDE 20 MG TAB PO SCH (09:14)
[2017-10-12] MEDS: levETIRAcetam 250 MG TAB PO SCH ×2 (09:15→20:46)
[2017-10-12] MEDS: levETIRAcetam 500 MG TAB PO SCH ×2 (09:26→20:46)
[2017-10-12] MEDS: POTASSIUM CHLORIDE ER 20 MEQ TAB.ER PO SCH (09:27)
--- NOTE | 2017-10-12 10:06 | P.PN ---
Subjective This is a 67 years old female with past medical history of GI bleed, GERD, hypertension, hyperlipidemia, ARTHRITIS, seizure disorder, thyroid disorder,. Who presents because of recurrent syncope. Patient was found to have 3 and later on 5 seconds pause and her telemetry strip. Patient was evaluated by cardiology and temporal pacemaker was inserted urgently and admitted to the intensive care unit. 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 There was suspicion that given her previous convulsive episodes were related to her hypo-profusion of from AV cindy disease rather than true seizure. However patient is on Keppra. She had another, pulse and episodes about 2 weeks ago and her medications were adjusted by her neurologist to Keppra and Fycomps. Neurologist increased the dose of Keppra to 1250 mg twice a day and EEG testing. 10/12/2017 Patient was lying in bed with no much movement, she continued to be in the ICU. Her heart rate is controlled better now on temporal pacemaker H in the 60s. Patient denies any syncope, chest pain no dyspnea. Patient is planned to have permanent pacemaker placement for her today as per cardiology team. He's been evaluated by neurologist for patient he had multiple seizure which were treated by Keppra however little was found low on her neurologist as the level 1000-15 mg twice a day. And the EEG didn't show suspicion for epileptiform activity. \ Review of Systems CONSTITUTIONAL: No fever, no malaise, no fatigue. HEENT: No recent visual problems or hearing problems. Denied any sore throat. CARDIOVASCULAR: No orthopnea, PND, no palpitations, no syncope. PULMONARY: No shortness of breath, no cough, no hemoptysis. GASTROINTESTINAL: No diarrhea, no nausea, no vomiting, no abdominal pain. Normoactive bowel sounds. NEUROLOGICAL: No headaches, no weakness, no numbness. HEMATOLOGICAL: Denies any bleeding or petechiae. GENITOURINARY: Denies any burning micturition, frequency, or urgency. MUSCULOSKELETAL/RHEUMATOLOGICAL: Denies any joint pain, swelling, or any muscle pain. ENDOCRINE: Denies any polyuria or polydipsia. Objective - Vital Signs Vital signs: Vital Signs Temp 97.9 F 10/12/17 08:00 Pulse 66 10/12/17 09:00 Resp 22 10/12/17 09:00 BP 148/72 10/12/17 09:00 Pulse Ox 94 L 10/12/17 09:00 Intake & Output 10/11/17 10/12/17 10/12/17 18:59 06:59 18:59 Intake Total 640 660 150 Output Total 200 250 Balance 440 660 -100 Weight 86.1 kg Intake: IV 400 600 150 Sodium Chloride 0.9% 1, 400 600 150 000 ml @ 50 mls/hr IV . Q20H [facility] Rx#:[id number] Oral 240 60 Output: Urine 200 250 - Exam GENERAL: The patient is alert and oriented x3, not in any acute distress. Well developed, well nourished. HEENT: Pupils are round and equally reacting to light. EOMI. No scleral icterus. No conjunctival pallor. Normocephalic, atraumatic. No pharyngeal erythema. No thyromegaly. CARDIOVASCULAR: S1 and S2 present. No murmurs, rubs, or gallops. PULMONARY: Chest is clear to auscultation, no wheezing or crackles. ABDOMEN: Soft, nontender, nondistended, normoactive bowel sounds. No palpable organomegaly. MUSCULOSKELETAL: No joint swelling or deformity. EXTREMITIES: No cyanosis, clubbing, or pedal edema. NEUROLOGICAL: Gross neurological examination did not reveal any focal deficits. SKIN: No rashes. - Labs CBC & Chem 7: 10/12/17 04:30 10/12/17 04:30 Labs: Abnormal Lab Results - Last 24 Hours (Table) 10/11/17 10/11/17 10/12/17 Range/Units 10:58 18:45 04:30 MCV 79.9 L (80.0-100.0) fL Chloride (98-107) mmol/L Glucose (74-99) mg/dL POC Glucose (mg/dL) 101 H (75-99) mg/dL Urine Blood Moderate H (Negative) 10/12/17 Range/Units 04:30 MCV (80.0-100.0) fL Chloride 108 H (98-107) mmol/L Glucose 108 H (74-99) mg/dL POC Glucose (mg/dL) (75-99) mg/dL Urine Blood (Negative) Assessment and Plan Assessment: -Recurrent syncopal episodes. 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 Patient is status post temporal pacemaker inserted by the block out machine operator. And she plans to go for permanent pacemaker tomorrow. Patient also will be evaluated by neurologist with EEG. She has history of recurrent seizures last seizure was about 2 weeks ago. EEG is normal. Patient into seizure medication , Keppra and Fycomps. On Keppra dose was increased to 1250 milligrams twice a day by neurologist. She looks dehydrated and needs some IV hydration. We will keep monitoring vitals and labs while in the ICU. Continue with DVT and GI prophylaxis. Further recommendation based on the clinical course Prognosis is guarded given the severity and complexity of her disease Time with Patient: Greater than 30
[2017-10-12] MEDS ORDERED: IOPAMIDOL-250 50ML BTL IV ONE (11:09)
[2017-10-12] MEDS ORDERED: LIDOCAINE 1% INJ 10MG/ML (20 ML MDV) ONE (11:16)
[2017-10-12] MEDS ORDERED: MIDAZOLAM 2 MG/2 ML VIAL ONE (11:17)
[2017-10-12] MEDS ORDERED: fentaNYL (PF) 50 MCG/ML 2 ML AMP ONE (11:19)
[2017-10-12] MEDS ORDERED: SODIUM CHLORIDE 0.9% 500 ML IV ONE (11:24)
[2017-10-12] MEDS ORDERED: MIDAZOLAM 2 MG/2 ML VIAL IVP ONE (11:48)
[2017-10-12] MEDS ORDERED: LIDOCAINE 1% INJ 10MG/ML (20 ML MDV) SQ ONE (11:49)
[2017-10-12] MEDS ORDERED: CYANOCOBALAMIN 500 MCG TAB PO SCH (12:00)
--- NOTE | 2017-10-12 13:03 | P.PCN ---
Preoperative Diagnosis: Patient underwent EP procedure/dual-chamber pacemaker under conscious sedation/ moderate sedation, monitoring of the level of consciousness and physiologic parameters including but not limited to vital signs and oxygenation. Patient tolerated the procedure well without any acute complications. Start time: 1147 Stop time: 1300
[2017-10-12] MEDS ORDERED: ACETAMINOPHEN TAB 325 MG TAB PO PRN (13:05)
[2017-10-12] MEDS ORDERED: HYDROcodone/APAP 5-325MG 1 EACH TAB PO PRN (13:05)
[2017-10-12] MEDS ORDERED: ACETAMINOPHEN IV (For NPO) 1,000 MG in EMPTY BAG 1 BAG IVPB ONE (13:30)
--- NOTE | 2017-10-12 14:25 | PCN ---
PROCEDURE NOTE Emily Torres is a 67-year-old female who presented with episodes of loss of consciousness with convulsive activity and was initially diagnosed with seizures. For the first 24 hours, she had no arrhythmias on the monitor. However, yesterday she had sudden paroxysmal AV block with an extremely long pause. Emergent TVP was placed and today she was brought in for a dual-chamber pacemaker implantation for management of symptomatic paroxysmal AV block without any aggravating factors. DESCRIPTION OF PROCEDURE: Patient was brought to the EP lab in a fasting state. Written informed consent was obtained prior to the procedure. The left shoulder area was prepped and draped as per protocol. 1% lidocaine was used for local anesthesia. A 4 cm incision was made parallel to the deltopectoral groove, about 1.5 cm medial to it. The incision was carried down to the level of the pectoralis muscle. A subfascial pocket was made. Hemostasis was assured. The left axillary vein was accessed at 2 separate points and via appropriately-sized introducer sheaths 2 leads were positioned in the right heart. The atrial lead was a passive lead [employer] model #1944, 46 cm in length and serial number [id number]. P waves were 3.7 mV. Pacing impedance 690 ohms, pacing threshold 0.75 V at 0.4 milliseconds. 10 V test negative. The RV lead was a screw-in lead [employer] model #2088 TC, 58 cm in length and serial number [id number]. The lead was screwed in mid to high RV septum. R-wave 6.8 mV. Pacing impedance 1075 ohms, pacing threshold 0.5 V at 0.4 milliseconds. 10 V test negative. Both leads were secured to the underlying pectoralis fascia using 2 nonabsorbable sutures. Pocket was irrigated with antibiotic solution. Leads were connected to the generator ([employer] model number [id number] serial #[id number]). Leads and generator were then placed in a subfascial pocket. The wound was closed in 3 layers and dressed per protocol. The device was then programmed to DDD mode at 50 ppm with VIP mode turned on. Procedure: Transvenous temporary pacing by lead removal. Under fluoroscopy, the TVP was removed. The permanent RV and RA leads were stable and this was documented fluoroscopically. Venous sheath was removed and hemostasis was assured at the end of the procedure. MMODL / IJN: [id number] /
[2017-10-12] MEDS: CYCLOBENZAPRINE 10 MG TAB PO PRN ×2 (15:37→15:38)
[2017-10-12] MEDS: ceFAZolin IN SWFI 2 GM/20 ML SYRINGE IVP SCH ×2 (18:47→23:32)
[2017-10-12] MEDS: buPROPion XL 150 MG TAB.ER.24H PO SCH (20:45)
[2017-10-12] MEDS: ATORVASTATIN 10 MG TAB PO SCH (20:45)
[2017-10-12] MEDS ORDERED: FYCOMPA PO SCH (21:00)
[2017-10-12] MEDS: ZOLPIDEM 10 MG TAB PO SCH (21:25)
--- NOTE | 2017-10-12 23:11 | P.PN ---
Subjective Progress Note Date: 10/12/17 This patient is a 67-year-old female who was admitted to Hospital with episode of possible seizure activity versus acute syncope. Since hospitalization yesterday the patient showed evidence of AV cindy irregularity with several cardiac pauses noted on her cardiac rhythm strips. She was seen by cardiology and had a temporary pacemaker placement. She was transferred to the intensive care unit yesterday for close monitoring. Patient is resting comfortably at this time. She did undergo routine EEG which was reviewed and is normal for her age. There is no evidence of active epileptic seizure focus. We did discuss the results of the EEG today with the patient in the ICU. Given her history of AV cindy disease this is most likely cause of her recent spells of syncope and collapse. Patient states she is being scheduled for permanent pacemaker placement. The patient did undergo dual-chamber pacemaker placement today which was performed by Dr. Paredes. This procedure went very well and she is recovering very nicely. The patient has history of underlying seizure disorder for which she has been taking Keppra. Her Keppra blood level came back therapeutic today at 35.7. We will have her continue on current dose of Keppra. She is making very good progress in the ICU and we will continue to monitor for any recurrent spells. We will continue to follow the patient closely in the ICU setting. Patient is awaiting transfer out of the ICU to the medical floor. She is being considered for possible discharge home early this week. We will await further recommendations from cardiology. Her overall prognosis at this time remains guarded. Objective - Vital Signs Vital signs: Vital Signs Temp 97.9 F 10/12/17 16:00 Pulse 67 10/12/17 16:00 Resp 19 10/12/17 16:00 BP 146/77 10/12/17 16:00 Pulse Ox 97 10/12/17 16:00 Intake & Output 10/11/17 10/12/17 10/12/17 18:59 06:59 18:59 Intake Total 640 660 950 Output Total 200 1050 Balance 440 660 -100 Weight 86.1 kg 86.1 kg Intake: IV 400 600 950 Sodium Chloride 0.9% 1, 600 000 ml @ 100 mls/hr IV . Q10H ANTONIO Rx#:[id number] Sodium Chloride 0.9% 1, 400 600 250 000 ml @ 50 mls/hr IV . Q20H ANTONIO Rx#:[id number] Oral 240 60 Output: Urine 200 1050 - Exam Physical examination: PHYSICAL EXAMINATION: Patient is resting comfortably in bed. VITAL SIGNS: Blood pressure is [146/77]. Heart rate is [67]. Respiration is [19] . Temperature is [97.9]. HEENT: Head is atraumatic, neck is supple, there were no carotid bruits. CHEST: Lungs are clear to auscultation and percussion. CARDIAC: S1, S2 normal rate and rhythm. There is no murmur. ABDOMEN: Soft and nontender. Bowel sounds are present. EXTREMITIES: There is no pedal edema. Peripheral pulses are present. Neurological examination: Patient has a nonfocal neurological examination today in the ICU. - Labs CBC & Chem 7: 10/12/17 04:30 10/12/17 04:30 Labs: Abnormal Lab Results - Last 24 Hours (Table) 10/11/17 10/12/17 10/12/17 Range/Units 18:45 04:30 04:30 MCV 79.9 L (80.0-100.0) fL Chloride 108 H (98-107) mmol/L Glucose 108 H (74-99) mg/dL Urine Blood Moderate H (Negative) Assessment and Plan (1) Seizure disorder Current Visit: Yes Status: Acute Code(s): G40.909 - EPILEPSY, UNSP, NOT INTRACTABLE, WITHOUT STATUS EPILEPTICUS SNOMED Code(s): 378145011 (2) Syncope Current Visit: Yes Status: Acute Code(s): R55 - SYNCOPE AND COLLAPSE SNOMED Code(s): 620138565 (3) Fall Current Visit: No Status: Acute Code(s): W19.XXXA - UNSPECIFIED FALL, INITIAL ENCOUNTER SNOMED Code(s): 4067780 (4) Chest pain Current Visit: No Status: Acute Code(s): R07.9 - CHEST PAIN, UNSPECIFIED SNOMED Code(s): 47219189 Plan: This patient is a 67-year-old female who is being evaluated for recent episode of syncope and collapse. She was found to have evidence of cardiac pause requiring pacemaker placement. She had a dual pacemaker placement today and is recovered very well and remains in the ICU today. She is resting comfortably and surgery went very well. The patient also has a history of underlying seizure disorder. She is to continue on current medications which include Keppra as her primary anticonvulsant medication. We are still awaiting the Keppra blood level to return from the laboratory. The patient is being considered for transferred out of the ICU later today. We will continue close follow-up with the patient. As noted her EEG was within normal limits with no evidence of any seizure focus. We will continue to follow the recommendations of cardiology regarding her new pacemaker placement. Her overall prognosis at this time remains guarded.
[2017-10-13] MEDS: SODIUM CHLORIDE 0.9% 1,000 ML IV SCH (03:15)
[2017-10-13 06:20] LABS: Basophils # (A) 0.1 k/uL (0-0.2); Basophils % (A) 1 %; Eosinophils # (A) 0.4 k/uL (0-0.7); Eosinophils % (A) 6 %; HCT 36.5 % (34.0-46.0); HGB 11.7 gm/dL (11.4-16.0); Hypochromasia Slight; Lymphocytes % (A) 29 %; MCV 81.2 fL (80.0-100.0); Mean Platelet Volume 6.4; Monocytes # (A) 0.4 k/uL (0-1.0); Monocytes % (A) 6 %; Neutrophils # (A) 3.8 k/uL (1.3-7.7); Neutrophils % (A) 56 %; Platelet Count 250 k/uL (150-450); RDW 15.2 % (11.5-15.5); WBC 6.8 k/uL (3.8-10.6)
[2017-10-13 06:33] LABS: Anion Gap 8 mmol/L; Blood Urea Nitrogen 11 mg/dL (7-17); Calcium 8.6 mg/dL (8.4-10.2); Carbon Dioxide 27 mmol/L (22-30); Chloride 107 mmol/L (98-107); Glucose 100 mg/dL (74-99); Magnesium 2.3 mg/dL (1.6-2.3); Phosphorus 4.1 mg/dL (2.5-4.5); Potassium 4.7 mmol/L (3.5-5.1); Sodium 142 mmol/L (137-145)
[2017-10-13] MEDS: ceFAZolin IN SWFI 2 GM/20 ML SYRINGE IVP SCH (07:04)
[2017-10-13] MEDS: PANTOPRAZOLE 40 MG TABLET PO SCH (07:04)
[2017-10-13] MEDS: LEVOTHYROXINE 50 MCG TAB PO SCH (07:04)
[2017-10-13] MEDS: AZITHROMYCIN 250 MG TAB PO SCH (08:51)
[2017-10-13] MEDS: CITALOPRAM HYDROBROMIDE 20 MG TAB PO SCH (08:51)
[2017-10-13] MEDS: POTASSIUM CHLORIDE ER 20 MEQ TAB.ER PO SCH (08:51)
[2017-10-13] MEDS: levETIRAcetam 500 MG TAB PO SCH (08:51)
[2017-10-13] MEDS: levETIRAcetam 250 MG TAB PO SCH (08:52)
--- NOTE | 2017-10-13 10:04 | XR ---
EXAMINATION TYPE: XR chest 2V DATE OF EXAM: 10/13/2017 COMPARISON: 10/09/2017 HISTORY: 67-year-old female needs placement check TECHNIQUE: Frontal and lateral views FINDINGS: Heart normal size. Mild elongation thoracic aorta. Pulmonary vasculature within normal limits. Some s trandy atelectasis in the lower lungs. Left anterior chest wall pacemaker generator with right atrial and right ventricular leads. Right ventricular lead is curled superiorly. No consolidation, pneumoth orax, or pleural effusion. IMPRESSION: Placement of left-sided pacemaker generator with right atrial and right ventricular leads as above. S trandy atelectasis lower lungs. No acute process seen.
--- NOTE | 2017-10-13 10:04 | P.PN ---
Subjective Progress Note Date: 10/13/17 This is a 67 years old female with past medical history of GI bleed, GERD, hypertension, hyperlipidemia, ARTHRITIS, seizure disorder, thyroid disorder,. Who presents because of recurrent syncope. Patient was found to have 3 and later on 5 seconds pause and her telemetry strip. Patient was evaluated by cardiology and temporal pacemaker was inserted urgently and admitted to the intensive care unit. 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 There was suspicion that given her previous convulsive episodes were related to her hypo-profusion of from AV cindy disease rather than true seizure. However patient is on Keppra. She had another, pulse and episodes about 2 weeks ago and her medications were adjusted by her neurologist to Keppra and Fycomps. Neurologist increased the dose of Keppra to 1250 mg twice a day and EEG testing. 10/12/2017 Patient was lying in bed with no much movement, she continued to be in the ICU. Her heart rate is controlled better now on temporal pacemaker H in the 60s. Patient denies any syncope, chest pain no dyspnea. Patient is planned to have permanent pacemaker placement for her today as per cardiology team. He's been evaluated by neurologist for patient he had multiple seizure which were treated by Keppra however little was found low on her neurologist as the level 1000-15 mg twice a day. And the EEG didn't show suspicion for epileptiform activity. Above per Dr. Howard, Covering for Dr. Menendez 10/13/2017 Patient seen and examined at the bedside. Patient underwent PPM insertion 2017. Dressing is CDI. Left arm remains in sling. Patient denies chest pain or pressure. Reports minimal pain at surgical site. Denies shortness of breath or cough. Patient is anxious to be discharged home. Objective - Vital Signs Vital signs: Vital Signs Temp 97.9 F 10/13/17 04:00 Pulse 75 10/13/17 06:00 Resp 18 10/13/17 06:00 BP 149/69 10/13/17 06:00 Pulse Ox 97 10/13/17 04:00 Intake & Output 10/12/17 10/13/17 10/13/17 18:59 06:59 18:59 Intake Total 1050 1490 Output Total 1050 Balance 0 1490 Weight 86.1 kg 86.5 kg Intake: IV 1050 1000 Sodium Chloride 0.9% 1, 700 1000 000 ml @ 100 mls/hr IV . Q10H ANTONIO Rx#:[id number] Sodium Chloride 0.9% 1, 250 000 ml @ 50 mls/hr IV . Q20H ANTONIO Rx#:[id number] Oral 490 Output: Urine 1050 Other: Voiding Method Toilet # Voids 0 - Exam GENERAL: This is a 67-year-old female in no apparent distress at the time of examination. Pleasant and cooperative. HEENT: Head is atraumatic, normocephalic. Pupils are equal, round, and reactive to light. Sclerae anicteric. Conjunctivae are clear. Mucus membranes of the mouth are moist. Neck is supple. RESPIRATORY: Clear to ausculation. No wheezes, rales, or rhonchi. No use of accessory muscles. Patient maintaining oxygen saturation greater than 92%. No chest wall tenderness is noted on palpation or with deep breathing. CARDIOVASCULAR: Left chest wall PPM site CDI. Sling noted to left arm. Regular rate and rhythm. S1 and S2 noted. No systolic or diastolic murmur auscultated. No JVD noted. No S3 or S4 noted. GASTROINTESTINAL: No distention noted. Abdomen soft and round. Normal active bowel sounds auscultated x 4 quadrants. No pain or tenderness noted upon palpation. INTEGUMENTARY: No cyanosis. No jaundice. No rashes noted. No cellulitis noted. EXTREMITIES: 1+ peripheral pulses. No evidence of peripheral edema. No calf tenderness noted. NEUROLOGIC: Cranial nerves II-XII intact. PSYCHIATRIC: Awake, alert, and oriented X 3. Appropriate affect. Intact judgement and insight. 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 Neurology on consult. Appreciate recommendations and input. Continue sling to left arm. Continue to monitor telemetry. Discharge home when cleared by cardiology. Nurse practitioner note has been reviewed by physician. Signing provider agrees with the documented findings, assessment, and plan of care.
--- NOTE | 2017-10-13 10:53 | PN ---
PROGRESS NOTE HISTORY OF PRESENT ILLNESS: Emily is a 67-year-old lady that is admitted to hospital with syncope and had paroxysmal paroxysmal AV pauses and underwent permanent pacemaker. This morning she is doing well and has a normally functioning pacemaker. The chest x-ray did not show any evidence of pneumothorax. She is otherwise free of symptoms. PHYSICAL EXAMINATION: On exam comfortable at rest. Heart rate is 75 beats and blood pressure is 149/69, respiratory rate is 18. Chest exam reveals good air entry bilaterally. Heart exam reveals first and second heart sounds. No gallop. Exam of extremities did not reveal any edema. Peripheral pulses are felt. The pacer site appears normal. LABS: Labs show a hemoglobin of 11.7, platelet count is 250. Potassium is 4.7. Creatinine is 0.7. ASSESSMENT: Intermittent episodes of AV block status post permanent pacemaker. The patient is doing well and is ready to be discharged. The patient will continue with the current medication. Resume the Coreg and will be discharged home hopefully today. MMODL / IJN: [id number] /
--- NOTE | 2017-10-13 13:09 | ECHOF ---
Referral Reason:Dysrhythmia MEASUREMENTS -------- HEIGHT: 152.4 cm WEIGHT: 86.2 kg BP: 149/69 RVIDd: 2.6 cm (< 3.3) IVSd: 1.2 cm (0.6 - 1.1) LVIDd: 2.7 cm (3.9 - 5.3) LVPWd: 1.1 cm (0.6 - 1.1) IVSs: 1.6 cm LVIDs: 1.9 cm LVPWs: 1.4 cm LA Diam: 2.9 cm (2.7 - 3.8) Ao Diam: 3.0 cm (2.0 - 3.7) AV Cusp: 2.0 cm (1.5 - 2.6) MV EXCURSION: 9.718 mm (> 18.000) MV EF SLOPE: 31 mm/s (70 - 150) EPSS: 0.5 cm MV E Hubert: 0.75 m/s MV DecT: 200 ms MV A Hubert: 0.85 m/s MV E/A Ratio: 0.88 FINDINGS -------- Sinus rhythm. This was a technically adequate study. The left ventricular size is normal. There is borderline concentric left ventricular hypertrophy. Overall left ventricular systolic function is normal with, an EF between 60 - 65 %. The right ventricle is normal in size. The right atrium is normal in size. There is mild aortic valve sclerosis. The mitral valve is normal. The tricuspid valve appears structurally normal. The pulmonic valve was not well visualized. The aortic root size is normal. IVC Not well visulized. There is no pericardial effusion. CONCLUSIONS -------- 1. Sinus rhythm. 2. This was a technically adequate study. 3. The left ventricular size is normal. 4. There is borderline concentric left ventricular hypertrophy. 5. Overall left ventricular systolic function is normal with, an EF between 60 - 65 %. 6. The right ventricle is normal in size. 7. The right atrium is normal in size. 8. There is mild aortic valve sclerosis. 9. The mitral valve is normal. 10. The tricuspid valve appears structurally normal. 11. The pulmonic valve was not well visualized. 12. The aortic root size is normal. 13. IVC Not well visulized. 14. There is no pericardial effusion. OFFICE ASST: Pat Perez RDCS
--- NOTE | 2017-10-13 13:35 | P.DS ---
Providers Date of admission: 10/11/17 11:51 Expected date of discharge: 10/13/17 Attending physician: Cade Menendez Consults: 10/09/17 23:54 Consult Physician Urgent Consulting Provider: Juan Angel Consult Reason/Comments: syncope Do you want consulting provider notified?: Yes 10/09/17 23:55 Consult Physician Urgent Consulting Provider: Abril Berman Consult Reason/Comments: syncope Do you want consulting provider notified?: Yes Primary care physician: Cade Menendez [facility] Course: This is a 67 years old female with past medical history of GI bleed, GERD, hypertension, hyperlipidemia, ARTHRITIS, seizure disorder, thyroid disorder,. Who presents because of recurrent syncope. Patient was found to have 3 and later on 5 seconds pause and her telemetry strip. Patient was evaluated by cardiology and temporal pacemaker was inserted urgently and admitted to the intensive care unit. 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 There was suspicion that given her previous convulsive episodes were related to her hypo-profusion of from AV cindy disease rather than true seizure. However patient is on Keppra. She had another, pulse and episodes about 2 weeks ago and her medications were adjusted by her neurologist to Keppra and Fycomps. Neurologist increased the dose of Keppra to 1250 mg twice a day and EEG testing. 10/12/2017 Patient was lying in bed with no much movement, she continued to be in the ICU. Her heart rate is controlled better now on temporal pacemaker H in the 60s. Patient denies any syncope, chest pain no dyspnea. Patient is planned to have permanent pacemaker placement for her today as per cardiology team. He's been evaluated by neurologist for patient he had multiple seizure which were treated by Keppra however little was found low on her neurologist as the level 1000-15 mg twice a day. And the EEG didn't show suspicion for epileptiform activity. Above per Dr. Howard, Covering for Dr. Menendez 10/13/2017 Patient seen and examined at the bedside. Patient underwent PPM insertion 2017. Dressing is CDI. Left arm remains in sling. Patient denies chest pain or pressure. Reports minimal pain at surgical site. Denies shortness of breath or cough. Patient is anxious to be discharged home. The patient has been followed by neurology during hospitalization. Neurology increased patient's dose of Keppra to 1250 mg every 12 hours. The patient was cleared for discharge from a cardiac standpoint. She was also deemed stable for DC per Dr. Menendez. She is to follow up on an outpatient basis. Rx were sent to the patients preferred pharmacy for Keppra. 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 Signing provider agrees with the documented findings, assessment, and plan of care. Plan - Discharge Summary Discharge Rx Participant: Yes New Discharge Prescriptions: New levETIRAcetam [Keppra] 1,000 mg PO Q12HR #120 tab levETIRAcetam [Keppra] 250 mg PO Q12HR #60 tab Continue Omeprazole 20 mg PO BID Meclizine [Antivert] 25 mg PO TID PRN PRN Reason: Vertigo LORazepam [Lorazepam] 0.5 mg PO TID PRN PRN Reason: Anxiety Atorvastatin [Lipitor] 10 mg PO HS Levothyroxine Sodium [Synthroid] 50 mcg PO DAILY Cyclobenzaprine [Flexeril] 10 mg PO BID PRN PRN Reason: Muscle Spasm Potassium Chloride [Potassium Chloride ER] 20 meq PO DAILY Cyanocobalamin [Vitamin B-12] 500 mcg PO DOWLING buPROPion XL [Wellbutrin XL] 150 mg PO HS Zolpidem Tartrate 10 mg PO HS Carvedilol [Coreg] 3.125 mg PO BID Citalopram Hydrobromide [CeleXA] 40 mg PO DAILY Fycompa 4 Mg 4 mg PO HS Ibuprofen [Motrin] 600 mg PO Q8HR PRN PRN Reason: Pain valACYclovir [Valtrex] 500 mg PO TID Discontinued levETIRAcetam [Keppra] 1,000 mg PO Q12HR Azithromycin [Zithromax Z-pack] See Taper PO DAILY Discharge Medication List Atorvastatin [Lipitor] 10 mg PO HS 09/21/13 [History] Cyclobenzaprine [Flexeril] 10 mg PO BID PRN 09/21/13 [History] LORazepam [Lorazepam] 0.5 mg PO TID PRN 09/21/13 [History] Levothyroxine Sodium [Synthroid] 50 mcg PO DAILY 09/21/13 [History] Meclizine [Antivert] 25 mg PO TID PRN 09/21/13 [History] Omeprazole 20 mg PO BID 09/21/13 [History] Potassium Chloride [Potassium Chloride ER] 20 meq PO DAILY 09/21/13 [History] Cyanocobalamin [Vitamin B-12] 500 mcg PO DOWLING 04/28/15 [History] buPROPion XL [Wellbutrin XL] 150 mg PO HS 04/28/15 [History] Zolpidem Tartrate 10 mg PO HS 02/12/16 [History] Carvedilol [Coreg] 3.125 mg PO BID 02/14/16 [History] Citalopram Hydrobromide [CeleXA] 40 mg PO DAILY 08/29/17 [History] Fycompa 4 Mg 4 mg PO HS 09/25/17 [History] Ibuprofen [Motrin] 600 mg PO Q8HR PRN 09/25/17 [History] valACYclovir [Valtrex] 500 mg PO TID 10/09/17 [History] levETIRAcetam [Keppra] 1,000 mg PO Q12HR #120 tab 10/13/17 [Rx] levETIRAcetam [Keppra] 250 mg PO Q12HR #60 tab 10/13/17 [Rx] Follow up Appointment(s)/Referral(s): Aquiles Paredes MD [STAFF PHYSICIAN] - 1 Week (Device clinic in [address] Corley in 12 weeks) Abril Berman MD [STAFF PHYSICIAN] - 1 Week Cade Menendez DO [Primary Care Provider] - 1-2 days (Spoke to switchboard receptionist. Office will call with appointment time) Activity/Diet/Wound Care/Special Instructions: PATIENT EDUCATION MATERIAL Instructions following a heart rhythm device implant. 1. Keep dressing DRY for 5 DAYS. You may cover the area with Saran or Cling Wrap, prior to a shower. 2. The dressing will be removed in the Device Clinic at [facility]. Absorbable sutures were used to close the wound. 3. Avoid raising the left arm above the shoulder level. 4 week restriction 4. Avoid arm movements, like backscratching, rubbing the head, or pulling on a cord. 4 weeks restriction 5. Gentle range of motion movements of the shoulder, closest to the incision should be performed to avoid a frozen shoulder. (Pendulum exercises of the shoulder) 6. The opposite arm may be used freely. 7. Avoid driving for 7 days. 8. Avoid activities such as golfing, swimming, weed whacking, lifting more than 10 pounds weight, bowling, gymnastics and weight training/lifting. (6 weeks restriction) 9. Activities such as wood chopping with an axe, pull-ups in the gymnasium, power lifting, arc-welding, being close to home induction cooktops will always be a problem. 10. Arm sling is a mere reminder not to raise the arm above the head. However you do not need to keep the arm completely immobilized. Your free to move the arm and use it and for normal activities. In case of any problems, please call [facility], Philomena Harp, @ [phone], Attention: Device Clinic Device clinic follow-up in 5 days Follow-up with primary manager control in 2-3 months Discharge Disposition: HOME SELF-CARE
[2017-10-13 15:22] VITALS: BP 147/88; PULSE 74; RESP 18; TEMP 98
[2017-10-13] MEDS ORDERED: CARVEDILOL 3.125 MG TAB PO SCH (17:30)
== END 2017-10-13 15:35 | disposition home or self-care (01) | DRG 244 ==
LOC: EC 22:02 → 6SEL 23:55 → 6ICU 10-11 10:20 → OBSVTOIN 10-11 11:51
PROVIDERS: ADMIT Family Medicine; ATTEND Family Medicine
PROC: 02HK3JZ Insertion of Pacemaker Lead into Right Ventricle, Percutaneous Approach (ICD-10-PCS; principal; 2017-10-11 10:05)
PROC: 0JH606Z Insertion of Pacemaker, Dual Chamber into Chest Subcutaneous Tissue and Fascia, Open Approach (ICD-10-PCS; 2017-10-12)
PROC: 02H63JZ Insertion of Pacemaker Lead into Right Atrium, Percutaneous Approach (ICD-10-PCS; 2017-10-12)
PROC: 02HK3JZ Insertion of Pacemaker Lead into Right Ventricle, Percutaneous Approach (ICD-10-PCS; 2017-10-12)
DX: I44.30 Unspecified atrioventricular block (principal); E03.9 Hypothyroidism, unspecified; E66.9 Obesity, unspecified; E78.5 Hyperlipidemia, unspecified; E86.0 Dehydration; F32.9 Major depressive disorder, single episode, unspecified; F41.9 Anxiety disorder, unspecified; G40.409 Other generalized epilepsy and epileptic syndromes, not intractable, without status epilepticus; I10 Essential (primary) hypertension; K21.9 Gastro-esophageal reflux disease without esophagitis; M19.90 Unspecified osteoarthritis, unspecified site; W19.XXXA Unspecified fall, initial encounter; Z96.653 Presence of artificial knee joint, bilateral; Z79.899 Other long term (current) drug therapy; Z80.41 Family history of malignant neoplasm of ovary; Z82.49 Family history of ischemic heart disease and other diseases of the circulatory system; Z90.49 Acquired absence of other specified parts of digestive tract; Z68.37 Body mass index [BMI] 37.0-37.9, adult; Z98.84 Bariatric surgery status; Z98.1 Arthrodesis status; Z79.890 Hormone replacement therapy; Z88.1 Allergy status to other antibiotic agents; Z88.5 Allergy status to narcotic agent; Z88.2 Allergy status to sulfonamides; Z88.8 Allergy status to other drugs, medicaments and biological substances
CPT/HCPCS: 33208; 36415; 70450; 71046; 80048; 80053; 80177; 81001; 82550; 82553; 83735; 84100; 84484; 85025; 85610; 85730; 93005; 93306; 93619; 95816; 99285

== ENCOUNTER 2017-10-25 10:52 | Observation (INO) | payer MEDICARE, OTHER ==
[2017-10-25] MEDS ORDERED: DIAZEPAM 5 MG/ML 2 ML INJ IVP STA (11:05)
[2017-10-25] MEDS ORDERED: MECLIZINE 25 MG TAB PO STA (11:05)
--- NOTE | 2017-10-25 11:14 | ED ---
General Adult HPI - General Stated complaint: PACE MAKER PROBLEM, FALLING AND WEAKNESS Time Seen by Provider: 10/25/17 10:55 Source: RN notes reviewed - History of Present Illness Initial comments: She has had pain around her pacemaker site ever since she had it placed. Patient states last evening before bed she started to get dizzy and found it difficult to ambulate without holding onto something. Patient states this is very similar to her vertigo. Patient states she also started to experience left arm achiness which was a new symptom and not normally associated with the vertigo. Patient woke up this morning continued to be off balance and almost fell and she continued to have left arm achiness that she decided come to the emergency department. Patient denies any chest pain difficulty breathing or shortness of breath. Patient denies any recent fever chills or cough. Patient denies any swelling redness or drainage from the pacemaker site. Patient denies any headache patient denies numbness weakness. Patient denies any lightheadedness or near syncopal episode but she does experience dizziness. Patient denies any abdominal pain patient denies any nausea vomiting or diarrhea. Patient denies any recent injury or trauma. Patient does complain of a mild to moderate headache which is diffusely distributed. - Related Data Home Medications Medication Instructions Recorded Confirmed Atorvastatin [Lipitor] 10 mg PO HS 09/21/13 10/25/17 Cyclobenzaprine [Flexeril] 10 mg PO BID PRN 09/21/13 10/25/17 LORazepam [Lorazepam] 0.5 mg PO TID PRN 09/21/13 10/25/17 Levothyroxine Sodium [Synthroid] 50 mcg PO DAILY 09/21/13 10/25/17 Meclizine [Antivert] 25 mg PO TID PRN 09/21/13 10/25/17 Omeprazole 20 mg PO BID 09/21/13 10/25/17 Potassium Chloride [Potassium 20 meq PO DAILY 09/21/13 10/25/17 Chloride ER] Cyanocobalamin [Vitamin B-12] 500 mcg PO DOWLING 04/28/15 10/25/17 buPROPion XL [Wellbutrin XL] 150 mg PO HS 04/28/15 10/25/17 Zolpidem Tartrate 10 mg PO HS 02/12/16 10/25/17 Carvedilol [Coreg] 3.125 mg PO BID 02/14/16 10/25/17 Citalopram Hydrobromide [CeleXA] 40 mg PO DAILY 08/29/17 10/25/17 Fycompa 4 Mg 4 mg PO HS 09/25/17 10/25/17 Ibuprofen [Motrin] 600 mg PO Q8HR PRN 09/25/17 10/25/17 valACYclovir [Valtrex] 500 mg PO TID 10/09/17 10/25/17 Previous Rx's Medication Instructions Recorded levETIRAcetam [Keppra] 1,000 mg PO Q12HR #120 tab 10/13/17 levETIRAcetam [Keppra] 250 mg PO Q12HR #60 tab 10/13/17 Allergies Allergy/AdvReac Type Severity Reaction Status Date / Time ciprofloxacin [From Cipro] Allergy Unknown Verified 10/25/17 11:57 ciprofloxacin HCl Allergy Unknown Verified 10/25/17 11:57 [From Cipro] hydromorphone [From Dilaudid] Allergy Rash/Hives Verified 10/25/17 11:57 soy Allergy Anaphylaxis Verified 10/25/17 11:57 tetracycline [Tetracycline] Allergy Rash/Hives Verified 10/25/17 11:57 tioconazole [From Monistat 1] Allergy Rash/Hives Verified 10/25/17 11:57 codeine AdvReac Rash/Hives Verified 10/25/17 11:57 hydrocodone bitartrate AdvReac Rash/Hives Verified 10/25/17 11:57 [From Lortab] meperidine HCl [From Demerol] AdvReac Rash/Hives Verified 10/25/17 11:57 morphine AdvReac Rash/Hives Verified 10/25/17 11:57 propoxyphene napsylate AdvReac Rash/Hives Verified 10/25/17 11:57 [From Darvocet-N 100] Sulfa (Sulfonamide AdvReac Rash/Hives Verified 10/25/17 11:57 Antibiotics) Review of Systems ROS Statement: Those systems with pertinent positive or pertinent negative responses have been documented in the HPI. ROS Other: All systems not noted in ROS Statement are negative. Past Medical History Past Medical History: GERD/Reflux, GI Bleed, Hyperlipidemia, Hypertension, Osteoarthritis (OA), Seizure Disorder, Thyroid Disorder Additional Past Medical History / Comment(s): LAST SEIZURE August, DIVERTICULITIS, STATES DIARRHEA FOR THE LAST 2 MONTHS., NECK AND BACK PAIN., KNEE PAIN., USES WALKER PRN., STATES HX OF GI BLEEDING. History of Any Multi-Drug Resistant Organisms: None Reported Past Surgical History: Back Surgery, Cholecystectomy, Heart Catheterization, Hernia Repair, Joint Replacement, Tonsillectomy Additional Past Surgical History / Comment(s): LAP BAND INSERTED & REMOVED, GASTRIC SLEEVE (2016), GINI TOTAL KNEES, CERVICAL FUSION (2-7), BOWEL RESECTION. , INCISIONAL HERNIA'S. STATES SEVERAL HEART CATHS-NO STENTS (DONE AT [facility] & [facility]) Past Anesthesia/Blood Transfusion Reactions: No Reported Reaction Past Psychological History: Anxiety, Depression Smoking Status: Never smoker Past Alcohol Use History: None Reported Past Drug Use History: None Reported - Past Family History Mother Family Medical History: Pulmonary Embolus Additional Family Medical History / Comment(s): Multiple TIA's. Father Family Medical History: Cancer Additional Family Medical History / Comment(s): Lung Sister(s) Family Medical History: Cancer Additional Family Medical History / Comment(s): OVARIAN CANCER General Exam - General Exam Comments Initial Comments: GENERAL: Patient is well-developed and well-nourished. Patient is nontoxic and well- hydrated and is in mild distress. ENT: Neck is soft and supple. No significant lymphadenopathy is noted. Oropharynx is clear. Moist mucous membranes. Neck has full range of motion without eliciting any pain. EYES: The sclera were anicteric and conjunctiva were pink and moist. Extraocular movements were intact and pupils were equal round and reactive to light. Eyelids were unremarkable. PULMONARY: Unlabored respirations. Good breath sounds bilaterally. No audible rales rhonchi or wheezing was noted. CARDIOVASCULAR: There is a regular rate and rhythm without any murmurs gallops or rubs. ABDOMEN: Soft and nontender with normal bowel sounds. No palpable organomegaly was noted. There is no palpable pulsatile mass. SKIN: Skin is clear with no lesions or rashes and otherwise unremarkable. NEUROLOGIC: Patient is alert and oriented x3. Cranial nerves II through XII are grossly intact. Motor and sensory are also intact. Normal speech, volume and content. Symmetrical smile. Cerebellar exam grossly intact. MUSCULOSKELETAL: Normal extremities with adequate strength and full range of motion. No lower extremity swelling or edema. No calf tenderness. LYMPHATICS: No significant lymphadenopathy is noted PSYCHIATRIC: Normal psychiatric evaluation. Course Vital Signs 10/25/17 11:00 Temperature 98 F Pulse Rate 71 Respiratory 16 Rate Blood Pressure 144/74 O2 Sat by Pulse 93 L Oximetry Medical Decision Making - Medical Decision Making EKG shows normal sinus rhythm at 74 bpm WI interval is 200 QRS is 84 QT interval 392 QTC is 435. Patient's EKG shows no ST segment elevation or depression or T wave abnormalities are noted. Chest x-ray shows no acute abnormality. Computed tomography scan shows no acute abnormality. Patient still feels very vertiginous even after the Antivert and vertigo. Patient continues to have achiness in her left arm. I spoke with Dr. Tubbs he wanted to admit the patient and consult cardiology - Lab Data Result diagrams: 10/25/17 11:19 10/25/17 11:19 Lab Results 10/25/17 10/25/17 10/25/17 Range/Units 11:19 11:19 11:19 WBC 6.1 (3.8-10.6) k/uL RBC 4.62 (3.80-5.40) m/uL Hgb 12.1 (11.4-16.0) gm/dL Hct 37.6 (34.0-46.0) % MCV 81.3 (80.0-100.0) fL MCH 26.1 (25.0-35.0) pg MCHC 32.1 (31.0-37.0) g/dL RDW 15.7 H (11.5-15.5) % Plt Count 287 (150-450) k/uL Neutrophils % 49 % Lymphocytes % 30 % Monocytes % 7 % Eosinophils % 10 % Basophils % 2 % Neutrophils # 3.0 (1.3-7.7) k/uL Lymphocytes # 1.8 (1.0-4.8) k/uL Monocytes # 0.4 (0-1.0) k/uL Eosinophils # 0.6 (0-0.7) k/uL Basophils # 0.1 (0-0.2) k/uL Hypochromasia Slight PT (9.0-12.0) sec INR (<1.2) APTT (22.0-30.0) sec Sodium 142 (137-145) mmol/L Potassium 4.8 (3.5-5.1) mmol/L Chloride 109 H (98-107) mmol/L Carbon Dioxide 24 (22-30) mmol/L Anion Gap 9 mmol/L BUN 10 (7-17) mg/dL Creatinine 0.87 (0.52-1.04) mg/dL Est GFR (CKD-EPI)AfAm 79 (>60 ml/min/1.73 sqM) Est GFR (CKD-EPI)NonAf 69 (>60 ml/min/1.73 sqM) Glucose 97 (74-99) mg/dL Calcium 9.2 (8.4-10.2) mg/dL Magnesium 2.3 (1.6-2.3) mg/dL Total Bilirubin 0.4 (0.2-1.3) mg/dL AST 21 (14-36) U/L ALT 28 (9-52) U/L Alkaline Phosphatase 113 (38-126) U/L Total Creatine Kinase 28 L (30-135) U/L CK-MB (CK-2) <0.2 (0.0-2.4) ng/mL CK-MB (CK-2) Rel Index Troponin I <0.012 (0.000-0.034) ng/mL Total Protein 6.4 (6.3-8.2) g/dL Albumin 3.7 (3.5-5.0) g/dL 10/25/17 Range/Units 11:19 WBC (3.8-10.6) k/uL RBC (3.80-5.40) m/uL Hgb (11.4-16.0) gm/dL Hct (34.0-46.0) % MCV (80.0-100.0) fL MCH (25.0-35.0) pg MCHC (31.0-37.0) g/dL RDW (11.5-15.5) % Plt Count (150-450) k/uL Neutrophils % % Lymphocytes % % Monocytes % % Eosinophils % % Basophils % % Neutrophils # (1.3-7.7) k/uL Lymphocytes # (1.0-4.8) k/uL Monocytes # (0-1.0) k/uL Eosinophils # (0-0.7) k/uL Basophils # (0-0.2) k/uL Hypochromasia PT 9.7 (9.0-12.0) sec INR 1.0 (<1.2) APTT 22.9 (22.0-30.0) sec Sodium (137-145) mmol/L Potassium (3.5-5.1) mmol/L Chloride (98-107) mmol/L Carbon Dioxide (22-30) mmol/L Anion Gap mmol/L BUN (7-17) mg/dL Creatinine (0.52-1.04) mg/dL Est GFR (CKD-EPI)AfAm (>60 ml/min/1.73 sqM) Est GFR (CKD-EPI)NonAf (>60 ml/min/1.73 sqM) Glucose (74-99) mg/dL Calcium (8.4-10.2) mg/dL Magnesium (1.6-2.3) mg/dL Total Bilirubin (0.2-1.3) mg/dL AST (14-36) U/L ALT (9-52) U/L Alkaline Phosphatase (38-126) U/L Total Creatine Kinase (30-135) U/L CK-MB (CK-2) (0.0-2.4) ng/mL CK-MB (CK-2) Rel Index Troponin I (0.000-0.034) ng/mL Total Protein (6.3-8.2) g/dL Albumin (3.5-5.0) g/dL Disposition Clinical Impression: Atypical angina, Pain in pacemaker pocket, Vertigo Disposition: ADMITTED IP TO THIS HOSP Referrals: Cade Menendez DO [Primary Care Provider] - 1-2 days Time of Disposition: 12:20
[2017-10-25 11:41] LABS: Albumin 3.7 g/dL (3.5-5.0); Calcium 9.2 mg/dL (8.4-10.2); Magnesium 2.3 mg/dL (1.6-2.3); Partial Thromboplastin Time 22.9 sec (22.0-30.0); Potassium 4.8 mmol/L (3.5-5.1); Prothrombin Time 9.7 sec (9.0-12.0); Total Bilirubin 0.4 mg/dL (0.2-1.3); Total Protein 6.4 g/dL (6.3-8.2)
[2017-10-25 11:44] LABS: Creatine Kinase 28 U/L (30-135)
[2017-10-25 11:52] LABS: Basophils # (A) 0.1 k/uL (0-0.2); Basophils % (A) 2 %; Eosinophils # (A) 0.6 k/uL (0-0.7); Eosinophils % (A) 10 %; HCT 37.6 % (34.0-46.0); HGB 12.1 gm/dL (11.4-16.0); Hypochromasia Slight; Lymphocytes # (A) 1.8 k/uL (1.0-4.8); Lymphocytes % (A) 30 %; MCH 26.1 pg (25.0-35.0); MCHC 32.1 g/dL (31.0-37.0); MCV 81.3 fL (80.0-100.0); Mean Platelet Volume 6.5; Monocytes # (A) 0.4 k/uL (0-1.0); Monocytes % (A) 7 %; Neutrophils % (A) 49 %; Platelet Count 287 k/uL (150-450); RBC 4.62 m/uL (3.80-5.40); RDW 15.7 % (11.5-15.5); WBC 6.1 k/uL (3.8-10.6)
--- NOTE | 2017-10-25 11:53 | CT ---
EXAMINATION TYPE: CT brain wo con DATE OF EXAM: 10/25/2017 COMPARISON: Previous study dated 10/09/2017. HISTORY: Falling and weakness CT DLP: 999.8 mGycm Automated exposure control for dose reduction was used. FINDINGS: There is mild periventricular white matter lucency, compatible with chronic white matter ischemic glo nge. There is no focal lesion, mass effect or midline shift identified. I do not see evidence of intr acranial blood. Ventricular size is normal. There is continuing right-sided sphenoidal sinus mucosal disease. The bony calvarium is intact. IMPRESSION: 1. NO ACUTE INTRACRANIAL ABNORMALITY. 2. CHRONIC RIGHT SPHENOIDAL SINUS MUCOSAL DISEASE.
--- NOTE | 2017-10-25 11:55 | XR ---
EXAMINATION TYPE: XR chest 2V DATE OF EXAM: 10/25/2017 HISTORY: Chest Pain. REFERENCE: Previous study dated 10/13/2017. FINDINGS: There are is a bipolar pacemaker in place on the left. The lungs are clear. Pleural spaces are clear. Heart size is mildly prominent. IMPRESSION: MILD CARDIOMEGALY.
[2017-10-25 11:57] LABS: Creatine Kinase MB <0.2 ng/mL (0.0-2.4); Troponin I <0.012 ng/mL (0.000-0.034)
[2017-10-25] MEDS ORDERED: NITROGLYCERIN SL TABS 0.4 MG TAB SUBLINGUAL PRN (12:20)
[2017-10-25 14:41] VITALS: BMI 37.0
[2017-10-25] MEDS ORDERED: LORazepam 0.5 MG TAB PO PRN (15:40)
[2017-10-25] MEDS ORDERED: MECLIZINE 25 MG TAB PO PRN (15:40)
[2017-10-25] MEDS ORDERED: IBUPROFEN 600 MG TAB PO PRN (15:40)
[2017-10-25] MEDS: HEPARIN SODIUM,PORCINE 5,000 UNIT/ML 1 ML VIAL SQ SCH (16:07)
[2017-10-25] MEDS ORDERED: CYCLOBENZAPRINE 10 MG TAB PO PRN (16:28)
[2017-10-25] MEDS: PANTOPRAZOLE 40 MG TABLET PO SCH (17:14)
[2017-10-25] MEDS: CARVEDILOL 3.125 MG TAB PO SCH (17:14)
[2017-10-25] MEDS ORDERED: NITROGLYCERIN OINT 1 INCH/GM PACKET TOPICAL SCH (18:00)
[2017-10-25 18:05] LABS: Creatine Kinase 30 U/L (30-135)
[2017-10-25 18:18] LABS: Creatine Kinase MB <0.2 ng/mL (0.0-2.4); Troponin I <0.012 ng/mL (0.000-0.034)
[2017-10-25] MEDS: ZOLPIDEM 10 MG TAB PO SCH (20:21)
[2017-10-25] MEDS: ATORVASTATIN 10 MG TAB PO SCH (20:22)
[2017-10-25] MEDS: levETIRAcetam 250 MG TAB PO SCH (20:22)
[2017-10-25] MEDS: buPROPion XL 150 MG TAB.ER.24H PO SCH (20:22)
[2017-10-25] MEDS: levETIRAcetam 500 MG TAB PO SCH (20:22)
--- NOTE | 2017-10-25 20:42 | P.HPIM ---
History of Present Illness H&P Date: 10/25/17 Chief Complaint: Left hand pain Patient is a 67-year-old female with a known history of hypertension, hyperlipidemia, seizure disorder and recent history of pacemaker placement to the left upper chest about a week ago due to sick sinus syndrome and also vertigo came to ER with complaints of left hand heaviness/achiness and some tightness in the left upper chest area. She also felt dizzy and found it difficult to ambulate without holding onto something last night. Patient woke up this morning continued to be off balance and almost fell and she continued to have left arm achiness that she decided come to the emergency department. Patient denies any chest pain difficulty breathing or shortness of breath. Patient denies any recent fever chills or cough. Patient denies any swelling redness or drainage from the pacemaker site. Patient denies any headache. patient denies numbness weakness. Patient denies any lightheadedness or near syncopal episode but she does experience dizziness. Patient denies any abdominal pain patient denies any nausea vomiting or diarrhea. Patient denies any recent injury or trauma. Chest x-ray showed mild cardiomegaly EKG sinus rhythm with heart rate 74 CT head showed no acute intracranial abnormality. Chronic right Sphenoidal sinus mucosal disease. Review of Systems Constitutional: Patient denies any fever or chills . No generalized weakness or weight loss. Abdomen: Patient denied nausea vomiting and diarrhea and abdominal pain. Cardiovascular: Upper extremity achiness and left-sided chest pain. No palpitations. Does have some dizziness Respiratory: patient denied any cough is from production. No shortness of breath Neurologic: Patient denied any numbness or tingling headache. Patient does have dizziness Musculoskeletal: Patient denies any complaints of joint swelling or deformity. Skin: Negative Psychiatric: Negative Endocrine: No heat or cold intolerance. No recent weight gain. Genitourinary: No dysuria or hematuria. All other 14 point ROS negative except the above Past Medical History Past Medical History: GERD/Reflux, GI Bleed, Hyperlipidemia, Hypertension, Osteoarthritis (OA), Seizure Disorder, Thyroid Disorder Additional Past Medical History / Comment(s): last seizure couple of weeks ago, history of depression History of Any Multi-Drug Resistant Organisms: None Reported Past Surgical History: Back Surgery, Cholecystectomy, Heart Catheterization, Hernia Repair, Joint Replacement, Tonsillectomy Additional Past Surgical History / Comment(s): LAP BAND INSERTED & REMOVED, GASTRIC SLEEVE (2016), GINI TOTAL KNEES, CERVICAL FUSION (2-7), BOWEL RESECTION. , INCISIONAL HERNIA'S. STATES SEVERAL HEART CATHS-NO STENTS (DONE AT [facility] & [facility]) Past Anesthesia/Blood Transfusion Reactions: No Reported Reaction Past Psychological History: Anxiety, Depression Smoking Status: Never smoker Past Alcohol Use History: None Reported Past Drug Use History: None Reported - Past Family History Mother Family Medical History: Pulmonary Embolus Additional Family Medical History / Comment(s): Multiple TIA's. Father Family Medical History: Cancer Additional Family Medical History / Comment(s): Lung Sister(s) Family Medical History: Cancer Additional Family Medical History / Comment(s): OVARIAN CANCER Medications and Allergies Home Medications Medication Instructions Recorded Confirmed Type Atorvastatin [Lipitor] 10 mg PO HS 09/21/13 10/25/17 History Cyclobenzaprine [Flexeril] 10 mg PO BID PRN 09/21/13 10/25/17 History LORazepam [Lorazepam] 0.5 mg PO TID PRN 09/21/13 10/25/17 History Levothyroxine Sodium [Synthroid] 50 mcg PO DAILY 09/21/13 10/25/17 History Meclizine [Antivert] 25 mg PO TID PRN 09/21/13 10/25/17 History Omeprazole 20 mg PO BID 09/21/13 10/25/17 History Potassium Chloride [Potassium 20 meq PO DAILY 09/21/13 10/25/17 History Chloride ER] Cyanocobalamin [Vitamin B-12] 500 mcg PO DOWLING 04/28/15 10/25/17 History buPROPion XL [Wellbutrin XL] 150 mg PO HS 04/28/15 10/25/17 History Zolpidem Tartrate 10 mg PO HS 02/12/16 10/25/17 History Carvedilol [Coreg] 3.125 mg PO BID 02/14/16 10/25/17 History Citalopram Hydrobromide [CeleXA] 40 mg PO DAILY 08/29/17 10/25/17 History Fycompa 4 Mg 4 mg PO HS 09/25/17 10/25/17 History Ibuprofen [Motrin] 600 mg PO Q8HR PRN 09/25/17 10/25/17 History valACYclovir [Valtrex] 500 mg PO TID 10/09/17 10/25/17 History levETIRAcetam [Keppra] 1,000 mg PO Q12HR #120 tab 10/13/17 10/25/17 Rx levETIRAcetam [Keppra] 250 mg PO Q12HR #60 tab 10/13/17 10/25/17 Rx Allergies Allergy/AdvReac Type Severity Reaction Status Date / Time ciprofloxacin [From Cipro] Allergy Unknown Verified 10/25/17 11:57 ciprofloxacin HCl Allergy Unknown Verified 10/25/17 11:57 [From Cipro] hydromorphone [From Dilaudid] Allergy Rash/Hives Verified 10/25/17 11:57 soy Allergy Anaphylaxis Verified 10/25/17 11:57 tetracycline [Tetracycline] Allergy Rash/Hives Verified 10/25/17 11:57 tioconazole [From Monistat 1] Allergy Rash/Hives Verified 10/25/17 11:57 codeine AdvReac Rash/Hives Verified 10/25/17 11:57 hydrocodone bitartrate AdvReac Rash/Hives Verified 10/25/17 11:57 [From Lortab] meperidine HCl [From Demerol] AdvReac Rash/Hives Verified 10/25/17 11:57 morphine AdvReac Rash/Hives Verified 10/25/17 11:57 propoxyphene napsylate AdvReac Rash/Hives Verified 10/25/17 11:57 [From Darvocet-N 100] Sulfa (Sulfonamide AdvReac Rash/Hives Verified 10/25/17 11:57 Antibiotics) Physical Exam Vitals: Vital Signs Temp Pulse Pulse Resp BP BP Pulse Ox 10/25/17 14:03 98.3 F 10/25/17 13:23 67 18 117/70 95 10/25/17 13:01 97.5 F L 65 18 140/67 98 10/25/17 12:21 71 16 123/68 96 10/25/17 11:00 98 F 71 16 144/74 93 L Intake and Output 10/24/17 10/25/17 10/25/17 22:59 06:59 14:59 Other: Weight 86.183 kg PHYSICAL EXAMINATION: Patient is lying in the bed comfortably, no acute distress, awake alert and oriented.. HEENT: Normocephalic. Neck is supple. Pupils reactive. Nostrils clear. Oral cavity is moist. Ears reveal no drainage. Neck reveals no JVD, carotid bruits, or thyromegaly. CHEST EXAMINATION: Trachea is central. Symmetrical expansion. Lung nunez clear to auscultation and percussion. CARDIAC: Normal S1, S2 with no gallops. No murmurs ABDOMEN: Soft. Bowel sounds normal. No organomegaly. No abdominal bruits. Extremities: reveal no edema. No clubbing or cyanosis Neurologically awake, alert, oriented x3 with well-coordinated movements. No focal deficits noted Skin: No rash or skin lesions. Psychiatric: Coperative. Nonsuicidal Musculoskeletal: No joint swelling or deformity. Normal range of motion. Results CBC & Chem 7: 10/25/17 11:19 10/25/17 11:19 Labs: Abnormal Lab Results - Last 24 Hours (Table) 10/25/17 10/25/17 10/25/17 Range/Units 11:19 11:19 11:19 RDW 15.7 H (11.5-15.5) % Chloride 109 H (98-107) mmol/L Total Creatine Kinase 28 L (30-135) U/L Thrombosis Risk Factor Assmnt - DVT/VTE Prophylaxis DVT/VTE Prophylaxis: Pharmacologic Prophylaxis ordered Assessment and Plan Assessment: Atypical chest pain with left hand achiness with history of pacemaker placement one week ago. Dizziness. Likely due to vertigo. Rule out arrhythmia Hypertension Hyperlipidemia GERD History of GI bleed Osteoarthritis Seizure disorder Hypothyroidism Anxiety and Depression Previous history of lap band removal and gastric sleeve surgery in 2016 History of cervical fusion surgery DVT prophylaxis Plan: Patient will be continued on telemetry monitoring. Troponin 2 negative. Continue with meclizine when necessary. Continue with the pain medications and home medications including Keppra. Will check Keppra level. Blood pressure is controlled. Follow closely and further recommendations based on the clinical course. Prognosis is guarded with multiple medical problems and comorbid conditions. Time with Patient: Greater than 30
[2017-10-26 00:31] LABS: Creatine Kinase 27 U/L (30-135)
[2017-10-26 00:43] LABS: Creatine Kinase MB <0.2 ng/mL (0.0-2.4); Troponin I <0.012 ng/mL (0.000-0.034)
[2017-10-26] MEDS: HEPARIN SODIUM,PORCINE 5,000 UNIT/ML 1 ML VIAL SQ SCH ×3 (01:10→17:45)
[2017-10-26 02:40] LABS: Cholesterol 161 mg/dL (<200); HDL Cholesterol 68 mg/dL (40-60); LDL Cholesterol,Calculated 69 mg/dL (0-99); Triglycerides 118 mg/dL (<150)
[2017-10-26] MEDS: PANTOPRAZOLE 40 MG TABLET PO SCH ×2 (06:31→17:45)
[2017-10-26] MEDS: CARVEDILOL 3.125 MG TAB PO SCH ×2 (06:31→17:45)
[2017-10-26] MEDS: LEVOTHYROXINE 50 MCG TAB PO SCH (06:31)
[2017-10-26] MEDS: ASPIRIN 325 MG TAB PO SCH (07:44)
[2017-10-26] MEDS: CITALOPRAM HYDROBROMIDE 20 MG TAB PO SCH (07:44)
[2017-10-26] MEDS: levETIRAcetam 250 MG TAB PO SCH ×2 (07:45→20:25)
[2017-10-26] MEDS: levETIRAcetam 500 MG TAB PO SCH ×2 (07:45→20:25)
--- NOTE | 2017-10-26 09:02 | P.CRDCN ---
History of Present Illness Consult date: 10/26/17 Chief complaint: Atypical chest discomfort History of present illness: This is a pleasant 67-year-old female patient who sees Dr. Paredes the office as an outpatient on regular basis with a past medical history significant for sick sinus syndrome and status post permanent pacemaker implantation was performed on September 2017, hypertension, dyslipidemia, presented to the emergency room complaining of chest and arm discomfort. The patient just was discharged from the hospital on October 13 after she underwent permanent pacemaker implantation for sick sinus syndrome after she presented with loss of consciousness and syncope. She was discharged in stable medical condition. She was at home yesterday when she woke up from sleep complaining off left arm discomfort/numbness. It was associated with mild chest discomfort as a dull kind of discomfort. No shortness of breath. No syncope. She was feeding that her gait was unsteady and she was slightly dizzy as well. The EKG showed sinus rhythm with poor R-wave progression without any ischemic changes. The cardiac enzymes were checked and came in to be unremarkable. The chest x-ray did not show any acute abnormalities including pneumothorax. Computed tomography scan of the brain was performed and came in to be unremarkable for acute events. Please note that the patient underwent a heart catheterization in [address] KORTNEY Hi and that revealed mild nonobstructive coronary artery disease. Overall she is feeling better. The left arm discomfort has resolved completely. The left arm is warm and I can feel good pulse and it in the brachial artery. The pacemaker site is also well-healed and no drainage or so coming from it. Past Medical History Past Medical History: GERD/Reflux, GI Bleed, Hyperlipidemia, Hypertension, Osteoarthritis (OA), Seizure Disorder, Thyroid Disorder Additional Past Medical History / Comment(s): last seizure couple of weeks ago, history of depression History of Any Multi-Drug Resistant Organisms: None Reported Past Surgical History: Back Surgery, Cholecystectomy, Heart Catheterization, Hernia Repair, Joint Replacement, Tonsillectomy Additional Past Surgical History / Comment(s): LAP BAND INSERTED & REMOVED, GASTRIC SLEEVE (2016), GINI TOTAL KNEES, CERVICAL FUSION (2-7), BOWEL RESECTION. , INCISIONAL HERNIA'S. STATES SEVERAL HEART CATHS-NO STENTS (DONE AT [facility] & [facility]) Past Anesthesia/Blood Transfusion Reactions: No Reported Reaction Past Psychological History: Anxiety, Depression Smoking Status: Never smoker Past Alcohol Use History: None Reported Past Drug Use History: None Reported - Past Family History Mother Family Medical History: Pulmonary Embolus Additional Family Medical History / Comment(s): Multiple TIA's. Father Family Medical History: Cancer Additional Family Medical History / Comment(s): Lung Sister(s) Family Medical History: Cancer Additional Family Medical History / Comment(s): OVARIAN CANCER Medications and Allergies Home Medications Medication Instructions Recorded Confirmed Type Atorvastatin [Lipitor] 10 mg PO HS 09/21/13 10/25/17 History Cyclobenzaprine [Flexeril] 10 mg PO BID PRN 09/21/13 10/25/17 History LORazepam [Lorazepam] 0.5 mg PO TID PRN 09/21/13 10/25/17 History Levothyroxine Sodium [Synthroid] 50 mcg PO DAILY 09/21/13 10/25/17 History Meclizine [Antivert] 25 mg PO TID PRN 09/21/13 10/25/17 History Omeprazole 20 mg PO BID 09/21/13 10/25/17 History Potassium Chloride [Potassium 20 meq PO DAILY 09/21/13 10/25/17 History Chloride ER] Cyanocobalamin [Vitamin B-12] 500 mcg PO DOWLING 04/28/15 10/25/17 History buPROPion XL [Wellbutrin XL] 150 mg PO HS 04/28/15 10/25/17 History Zolpidem Tartrate 10 mg PO HS 02/12/16 10/25/17 History Carvedilol [Coreg] 3.125 mg PO BID 02/14/16 10/25/17 History Citalopram Hydrobromide [CeleXA] 40 mg PO DAILY 08/29/17 10/25/17 History Fycompa 4 Mg 4 mg PO HS 09/25/17 10/25/17 History Ibuprofen [Motrin] 600 mg PO Q8HR PRN 09/25/17 10/25/17 History valACYclovir [Valtrex] 500 mg PO TID 10/09/17 10/25/17 History levETIRAcetam [Keppra] 1,000 mg PO Q12HR #120 tab 10/13/17 10/25/17 Rx levETIRAcetam [Keppra] 250 mg PO Q12HR #60 tab 10/13/17 10/25/17 Rx Allergies Allergy/AdvReac Type Severity Reaction Status Date / Time ciprofloxacin [From Cipro] Allergy Unknown Verified 10/25/17 11:57 ciprofloxacin HCl Allergy Unknown Verified 10/25/17 11:57 [From Cipro] hydromorphone [From Dilaudid] Allergy Rash/Hives Verified 10/25/17 11:57 soy Allergy Anaphylaxis Verified 10/25/17 11:57 tetracycline [Tetracycline] Allergy Rash/Hives Verified 10/25/17 11:57 tioconazole [From Monistat 1] Allergy Rash/Hives Verified 10/25/17 11:57 codeine AdvReac Rash/Hives Verified 10/25/17 11:57 hydrocodone bitartrate AdvReac Rash/Hives Verified 10/25/17 11:57 [From Lortab] meperidine HCl [From Demerol] AdvReac Rash/Hives Verified 10/25/17 11:57 morphine AdvReac Rash/Hives Verified 10/25/17 11:57 propoxyphene napsylate AdvReac Rash/Hives Verified 10/25/17 11:57 [From Darvocet-N 100] Sulfa (Sulfonamide AdvReac Rash/Hives Verified 10/25/17 11:57 Antibiotics) Physical Exam Vitals: Vital Signs Temp Pulse Pulse Resp BP BP BP 10/26/17 07:48 97.5 F L 71 16 137/66 10/26/17 04:00 96.4 F L 64 16 10/26/17 00:00 97.0 F L 63 16 10/25/17 20:00 96.8 F L 65 16 10/25/17 18:13 145/74 10/25/17 15:02 97.5 F L 65 18 140/67 10/25/17 14:03 98.3 F 10/25/17 13:23 67 18 117/70 10/25/17 13:01 97.5 F L 65 18 140/67 10/25/17 12:21 71 16 123/68 10/25/17 11:00 98 F 71 16 144/74 BP BP Pulse Ox 10/26/17 07:48 93 L 10/26/17 04:00 130/66 92 L 10/26/17 00:00 126/66 92 L 10/25/17 20:00 153/72 95 10/25/17 18:13 123/77 140/67 10/25/17 15:02 98 10/25/17 14:03 10/25/17 13:23 95 10/25/17 13:01 98 10/25/17 12:21 96 10/25/17 11:00 93 L Intake and Output 10/25/17 10/26/17 10/26/17 22:59 06:59 14:59 Intake Total 240 Balance 240 Intake: Oral 240 Other: Voiding Method Toilet Toilet # Voids 1 2 Weight 86.3 kg - Constitutional General appearance: no acute distress - Respiratory Respiratory: bilateral: CTA - Cardiovascular Rhythm: regular Heart sounds: normal: S1, S2 Results 10/25/17 11:19 10/25/17 11:19 Cardiac Enzymes 10/25/17 10/25/17 10/25/17 Range/Units 11:19 11:19 17:30 AST 21 (14-36) U/L CK-MB (CK-2) <0.2 <0.2 (0.0-2.4) ng/mL Troponin I <0.012 <0.012 (0.000-0.034) ng/mL 10/25/17 Range/Units 23:40 AST (14-36) U/L CK-MB (CK-2) <0.2 (0.0-2.4) ng/mL Troponin I <0.012 (0.000-0.034) ng/mL Coagulation 10/25/17 Range/Units 11:19 PT 9.7 (9.0-12.0) sec APTT 22.9 (22.0-30.0) sec Lipids 10/25/17 Range/Units 11:19 Triglycerides 118 (<150) mg/dL Cholesterol 161 (<200) mg/dL HDL Cholesterol 68 H (40-60) mg/dL CBC 10/25/17 Range/Units 11:19 WBC 6.1 (3.8-10.6) k/uL RBC 4.62 (3.80-5.40) m/uL Hgb 12.1 (11.4-16.0) gm/dL Hct 37.6 (34.0-46.0) % Plt Count 287 (150-450) k/uL Comprehensive Metabolic Panel 10/25/17 Range/Units 11:19 Sodium 142 (137-145) mmol/L Potassium 4.8 (3.5-5.1) mmol/L Chloride 109 H (98-107) mmol/L Carbon Dioxide 24 (22-30) mmol/L BUN 10 (7-17) mg/dL Creatinine 0.87 (0.52-1.04) mg/dL Glucose 97 (74-99) mg/dL Calcium 9.2 (8.4-10.2) mg/dL AST 21 (14-36) U/L ALT 28 (9-52) U/L Alkaline Phosphatase 113 (38-126) U/L Total Protein 6.4 (6.3-8.2) g/dL Albumin 3.7 (3.5-5.0) g/dL Current Medications Generic Name Dose Route Start Last Admin Trade Name Freq PRN Reason Stop Dose Admin Aspirin 325 mg 10/26/17 09:00 10/26/17 07:44 Aspirin PO 325 mg DAILY ANTONIO Administration Atorvastatin Calcium 10 mg 10/25/17 21:00 10/25/17 20:22 Lipitor PO 10 mg HS ANTONIO Administration Bupropion HCl 150 mg 10/25/17 21:00 10/25/17 20:22 Wellbutrin Xl PO 150 mg HS ANTONIO Administration Carvedilol 3.125 mg 10/25/17 17:30 10/26/17 06:31 Coreg PO 3.125 mg BID-W/MEALS ANTONIO Administration Citalopram Hydrobromide 40 mg 10/26/17 09:00 10/26/17 07:44 Celexa PO 40 mg DAILY ANTONIO Administration Cyanocobalamin 500 mcg 10/26/17 12:00 Vitamin B-12 PO DOWLING ANTONIO Cyclobenzaprine HCl 10 mg 10/25/17 16:28 10/25/17 17:37 Flexeril PO 10 mg BID PRN Administration Muscle Spasm Heparin Sodium (Porcine) 5,000 unit 10/25/17 16:00 10/26/17 07:44 Heparin SQ 5,000 unit Q8HR ANTONIO Administration Ibuprofen 600 mg 10/25/17 15:40 Motrin PO Q8HR PRN Pain Levetiracetam 250 mg 10/25/17 21:00 10/26/17 07:45 Keppra PO 250 mg Q12HR ANTONIO Administration Levetiracetam 1,000 mg 10/25/17 21:00 10/26/17 07:45 Keppra PO 1,000 mg Q12HR ANTONIO Administration Levothyroxine Sodium 50 mcg 10/26/17 06:30 10/26/17 06:31 Synthroid PO 50 mcg DAILY@0630 ANTONIO Administration Lorazepam 0.5 mg 10/25/17 15:40 Ativan PO TID PRN Anxiety Meclizine HCl 25 mg 10/25/17 15:40 Antivert PO TID PRN Vertigo Nitroglycerin 0.4 mg 10/25/17 12:20 Nitrostat SUBLINGUAL Q5M PRN Chest Pain Pantoprazole Sodium 40 mg 10/25/17 17:30 10/26/17 06:31 Protonix PO 40 mg AC-BID ANTONIO Administration Zolpidem Tartrate 10 mg 10/25/17 21:00 10/25/17 20:21 Ambien PO 10 mg HS ANTONIO Administration Intake and Output 10/25/17 10/26/17 10/26/17 22:59 06:59 14:59 Intake Total 240 Balance 240 Intake: Oral 240 Other: Voiding Method Toilet Toilet # Voids 1 2 Weight 86.3 kg 10/25/17 11:19 10/25/17 11:19 Assessment and Plan Assessment: Assessment #1 left arm discomfort/atypical chest discomfort #2 status post permanent pacemaker implantation recently #3 hypertension seems to be well-controlled #4 dyslipidemia Plan #1 the patient was ruled out for acute coronary event #2 her chest discomfort is atypical and unlikely to be related to severe CAD giving that she underwent a heart catheterization recently showed normal coronaries #3 I will obtain an echocardiogram was Doppler and if that came in to be unremarkable the patient can be discharged home. We will rule out any pericardial effusion Thank you for allowing us participate in her care and we will continue following up with the patient.
[2017-10-26] MEDS ORDERED: CYANOCOBALAMIN 500 MCG TAB PO SCH (12:00)
[2017-10-26] MEDS: ATORVASTATIN 10 MG TAB PO SCH (20:24)
[2017-10-26] MEDS: buPROPion XL 150 MG TAB.ER.24H PO SCH (20:25)
[2017-10-26] MEDS: ZOLPIDEM 10 MG TAB PO SCH (20:25)
[2017-10-27] MEDS: HEPARIN SODIUM,PORCINE 5,000 UNIT/ML 1 ML VIAL SQ SCH ×2 (00:05→09:01)
[2017-10-27 04:54] VITALS: RESP 18
[2017-10-27] MEDS: LEVOTHYROXINE 50 MCG TAB PO SCH (06:36)
[2017-10-27 08:32] VITALS: BP 118/67; PULSE 69; TEMP 98.3
[2017-10-27] MEDS: levETIRAcetam 500 MG TAB PO SCH (08:59)
[2017-10-27] MEDS: CITALOPRAM HYDROBROMIDE 20 MG TAB PO SCH (08:59)
[2017-10-27] MEDS: levETIRAcetam 250 MG TAB PO SCH (08:59)
[2017-10-27] MEDS: PANTOPRAZOLE 40 MG TABLET PO SCH (08:59)
[2017-10-27] MEDS: CARVEDILOL 3.125 MG TAB PO SCH (08:59)
[2017-10-27] MEDS: ASPIRIN 325 MG TAB PO SCH (09:01)
--- NOTE | 2017-10-27 09:29 | P.PN ---
Progress Note - Text Patient admitted with left-sided chest discomfort. Recent permanent pacemaker for paroxysmal AV block with history of syncope Permanent pacemaker just interrogated and is functioning normally Suggest 2-D echo and Doppler study today and of this is normal and the pericardium is normal then she may go home and follow-up with me as an outpatient See full dictation by nurse practitioner
--- NOTE | 2017-10-27 11:00 | P.DS ---
Providers Date of admission: 10/25/17 12:20 Expected date of discharge: 10/27/17 Attending physician: Vicki Tubbs Consults: 10/25/17 12:20 Consult Physician Urgent Consulting Provider: [facility] Consult Reason/Comments: Atypical angina, pacemaker pain Do you want consulting provider notified?: Yes Primary care physician: Cade Menendez [facility] Course: Patient is a 67-year-old female with a known history of hypertension, hyperlipidemia, seizure disorder and recent history of pacemaker placement to the left upper chest about a week ago due to sick sinus syndrome and also vertigo came to ER with complaints of left hand heaviness/achiness and some tightness in the left upper chest area. She also felt dizzy and found it difficult to ambulate without holding onto something last night. Patient woke up this morning continued to be off balance and almost fell and she continued to have left arm achiness that she decided come to the emergency department. Patient denies any chest pain difficulty breathing or shortness of breath. Patient denies any recent fever chills or cough. Patient denies any swelling redness or drainage from the pacemaker site. Patient denies any headache. patient denies numbness weakness. Patient denies any lightheadedness or near syncopal episode but she does experience dizziness. Patient denies any abdominal pain patient denies any nausea vomiting or diarrhea. Patient denies any recent injury or trauma. Chest x-ray showed mild cardiomegaly EKG sinus rhythm with heart rate 74 CT head showed no acute intracranial abnormality. Chronic right Sphenoidal sinus mucosal disease. Patient was evaluated by cardiology and acute coronary syndrome was ruled out. Echo was ordered and once read and cleared by cardiology, the patient may be discharged home. She is stable at this time. She is to follow up with Dr. Menendez in 1 week. Discharge diagnosis Atypical chest pain with left hand achiness with history of pacemaker placement one week ago, acute coronary syndrome ruled out, improved. Dizziness. Likely due to vertigo. arrhythmia ruled out, PPM functioning properly, resolved at discharge Hypertension Hyperlipidemia GERD History of GI bleed Osteoarthritis Seizure disorder Hypothyroidism Anxiety and Depression Previous history of lap band removal and gastric sleeve surgery in 2016 History of cervical fusion surgery Nurse practitioner note has been reviewed by physician. Signing provider agrees with the documented findings, assessment, and plan of care. Patient Condition at Discharge: Stable Plan - Discharge Summary New Discharge Prescriptions: Continue Omeprazole 20 mg PO BID Meclizine [Antivert] 25 mg PO TID PRN PRN Reason: Vertigo LORazepam [Lorazepam] 0.5 mg PO TID PRN PRN Reason: Anxiety Atorvastatin [Lipitor] 10 mg PO HS Levothyroxine Sodium [Synthroid] 50 mcg PO DAILY Cyclobenzaprine [Flexeril] 10 mg PO BID PRN PRN Reason: Muscle Spasm Potassium Chloride [Potassium Chloride ER] 20 meq PO DAILY Cyanocobalamin [Vitamin B-12] 500 mcg PO DOWLING buPROPion XL [Wellbutrin XL] 150 mg PO HS Zolpidem Tartrate 10 mg PO HS Carvedilol [Coreg] 3.125 mg PO BID Citalopram Hydrobromide [CeleXA] 40 mg PO DAILY Fycompa 4 Mg 4 mg PO HS Ibuprofen [Motrin] 600 mg PO Q8HR PRN PRN Reason: Pain valACYclovir [Valtrex] 500 mg PO TID levETIRAcetam [Keppra] 1,000 mg PO Q12HR #120 tab levETIRAcetam [Keppra] 250 mg PO Q12HR #60 tab Discharge Medication List Atorvastatin [Lipitor] 10 mg PO HS 09/21/13 [History] Cyclobenzaprine [Flexeril] 10 mg PO BID PRN 09/21/13 [History] LORazepam [Lorazepam] 0.5 mg PO TID PRN 09/21/13 [History] Levothyroxine Sodium [Synthroid] 50 mcg PO DAILY 09/21/13 [History] Meclizine [Antivert] 25 mg PO TID PRN 09/21/13 [History] Omeprazole 20 mg PO BID 09/21/13 [History] Potassium Chloride [Potassium Chloride ER] 20 meq PO DAILY 09/21/13 [History] Cyanocobalamin [Vitamin B-12] 500 mcg PO DOWLING 04/28/15 [History] buPROPion XL [Wellbutrin XL] 150 mg PO HS 04/28/15 [History] Zolpidem Tartrate 10 mg PO HS 02/12/16 [History] Carvedilol [Coreg] 3.125 mg PO BID 02/14/16 [History] Citalopram Hydrobromide [CeleXA] 40 mg PO DAILY 08/29/17 [History] Fycompa 4 Mg 4 mg PO HS 09/25/17 [History] Ibuprofen [Motrin] 600 mg PO Q8HR PRN 09/25/17 [History] valACYclovir [Valtrex] 500 mg PO TID 10/09/17 [History] levETIRAcetam [Keppra] 1,000 mg PO Q12HR #120 tab 10/13/17 [Rx] levETIRAcetam [Keppra] 250 mg PO Q12HR #60 tab 10/13/17 [Rx] Follow up Appointment(s)/Referral(s): Cade Menendez DO [Primary Care Provider] - 1-2 days
--- NOTE | 2017-10-27 23:08 | P.PN ---
Subjective Progress Note Date: 10/26/17 Principal diagnosis: Chest pain Patient is a 67-year-old female with a known history of hypertension, hyperlipidemia, seizure disorder and recent history of pacemaker placement to the left upper chest about a week ago due to sick sinus syndrome and also vertigo came to ER with complaints of left hand heaviness/achiness and some tightness in the left upper chest area. She also felt dizzy and found it difficult to ambulate without holding onto something last night. Patient woke up this morning continued to be off balance and almost fell and she continued to have left arm achiness that she decided come to the emergency department. Patient denies any chest pain difficulty breathing or shortness of breath. Patient denies any recent fever chills or cough. Patient denies any swelling redness or drainage from the pacemaker site. Patient denies any headache. patient denies numbness weakness. Patient denies any lightheadedness or near syncopal episode but she does experience dizziness. Patient denies any abdominal pain patient denies any nausea vomiting or diarrhea. Patient denies any recent injury or trauma. Chest x-ray showed mild cardiomegaly EKG sinus rhythm with heart rate 74 CT head showed no acute intracranial abnormality. Chronic right Sphenoidal sinus mucosal disease. 10/26/2017 Left upper extremities pain is improved. Serial EKG and troponins are negative. Cardiology recommends 2-D echocardiogram which is pending at this time. Otherwise no acute overnight issues. No complaints of chest pain now. No shortness of breath. All other review of systems negative except the above Current medications reviewed Objective - Vital Signs Vital signs: Vital Signs Temp 97.9 F 10/26/17 20:00 Pulse 58 L 10/26/17 20:00 Resp 16 10/26/17 20:00 BP 132/85 10/26/17 20:00 Pulse Ox 95 10/26/17 20:00 Intake & Output 10/26/17 10/26/17 10/27/17 06:59 18:59 06:59 Intake Total 240 Balance 240 Weight 86.3 kg Intake: Oral 240 Other: Voiding Method Toilet Toilet Toilet # Voids 2 2 1 - Exam PHYSICAL EXAMINATION: Patient is lying in the bed comfortably, no acute distress, awake alert and oriented.. HEENT: Normocephalic. Neck is supple. Pupils reactive. Nostrils clear. Oral cavity is moist. Ears reveal no drainage. Neck reveals no JVD, carotid bruits, or thyromegaly. CHEST EXAMINATION: Trachea is central. Symmetrical expansion. Lung nunez clear to auscultation and percussion. CARDIAC: Normal S1, S2 with no gallops. No murmurs ABDOMEN: Soft. Bowel sounds normal. No organomegaly. No abdominal bruits. Extremities: reveal no edema. No clubbing or cyanosis Neurologically awake, alert, oriented x3 with well-coordinated movements. No focal deficits noted Skin: No rash or skin lesions. Psychiatric: Coperative. Nonsuicidal Musculoskeletal: No joint swelling or deformity. Normal range of motion. - Labs CBC & Chem 7: 10/25/17 11:19 10/25/17 11:19 Labs: Abnormal Lab Results - Last 24 Hours (Table) 10/25/17 10/25/17 Range/Units 11:19 23:40 Total Creatine Kinase 27 L (30-135) U/L HDL Cholesterol 68 H (40-60) mg/dL Assessment and Plan Assessment: Atypical chest pain with left hand achiness with history of pacemaker placement one week ago. Dizziness. Likely due to vertigo. Rule out arrhythmia Hypertension Hyperlipidemia GERD History of GI bleed Osteoarthritis Seizure disorder Hypothyroidism Anxiety and Depression Previous history of lap band removal and gastric sleeve surgery in 2016 History of cervical fusion surgery DVT prophylaxis Plan: Patient will be continued on telemetry monitoring. Troponin 3negative. Continue with meclizine when necessary. Continue with the pain medications and home medications including Keppra. Keppra level within normal limits.. Blood pressure is controlled. Follow closely and further recommendations based on the clinical course. Prognosis is guarded with multiple medical problems and comorbid conditions. Time with Patient: Greater than 30
== END 2017-10-27 12:20 | disposition home or self-care (01) ==
LOC: EC 10:52 → 6SEL 12:20 → 3OBS 10-26 09:51
PROVIDERS: ADMIT Internal Medicine; ATTEND Internal Medicine
DX: R07.89 Other chest pain (principal); R42 Dizziness and giddiness; R20.0 Anesthesia of skin; R26.81 Unsteadiness on feet; I11.9 Hypertensive heart disease without heart failure; Z95.0 Presence of cardiac pacemaker; T82.847A Pain due to cardiac prosthetic devices, implants and grafts, initial encounter; I25.10 Atherosclerotic heart disease of native coronary artery without angina pectoris; M19.90 Unspecified osteoarthritis, unspecified site; K21.9 Gastro-esophageal reflux disease without esophagitis; G40.909 Epilepsy, unspecified, not intractable, without status epilepticus; E78.5 Hyperlipidemia, unspecified; E03.9 Hypothyroidism, unspecified; F41.9 Anxiety disorder, unspecified; F32.9 Major depressive disorder, single episode, unspecified; R51 Headache; K57.90 Diverticulosis of intestine, part unspecified, without perforation or abscess without bleeding; Z79.890 Hormone replacement therapy; Z79.899 Other long term (current) drug therapy; Z88.1 Allergy status to other antibiotic agents; Z88.3 Allergy status to other anti-infective agents; Z88.5 Allergy status to narcotic agent; Z88.2 Allergy status to sulfonamides; Z88.8 Allergy status to other drugs, medicaments and biological substances; Z91.018 Allergy to other foods; Z87.19 Personal history of other diseases of the digestive system; Z90.49 Acquired absence of other specified parts of digestive tract; Z98.84 Bariatric surgery status; Z98.1 Arthrodesis status; Z96.653 Presence of artificial knee joint, bilateral; Z82.49 Family history of ischemic heart disease and other diseases of the circulatory system; Z80.1 Family history of malignant neoplasm of trachea, bronchus and lung; Z80.41 Family history of malignant neoplasm of ovary; Z82.3 Family history of stroke
CPT/HCPCS: 99285 ×2; 96374 ×2; 96372 ×3; 36415; 93005; 80061; 80053; 80177; 82550; 82553; 83735; 84484; 85025; 85610; 85730; 71046; 70450; G0378 ×3; J1644 ×3; J3360

== ENCOUNTER 2017-11-11 11:53 | Observation (INO) | payer MEDICARE, OTHER ==
[2017-11-11] MEDS ORDERED: NITROGLYCERIN OINT 1 INCH/GM PACKET TOPICAL STA (12:18)
--- NOTE | 2017-11-11 12:29 | ED ---
General Adult HPI - General Chief complaint: Chest Pain Stated complaint: Chest pain x 3 days Time Seen by Provider: 11/11/17 11:55 Source: patient, RN notes reviewed Mode of arrival: wheelchair Limitations: no limitations - History of Present Illness Initial comments: This is a 67-year-old female presents emergency Department complaining of chest pain for 3 days. Patient states it radiates down her left arm and she has shortness of breath when it occurs. Patient states the pain usually last between 45 minutes to an hour. Patient states she has a hypertensive patient as well as high cholesterol. Patient also states she has a pacemaker. Patient also states she has a strong family history of heart disease. Patient states currently she is only very little chest pain. Patient denies any recent fever chills but has had a dry cough. Patient denies abdominal pain patient denies nausea vomiting diarrhea. Denies any headache patient denies lightheadedness or dizziness. - Related Data Home Medications Medication Instructions Recorded Confirmed Atorvastatin [Lipitor] 10 mg PO HS 09/21/13 11/11/17 Cyclobenzaprine [Flexeril] 10 mg PO BID PRN 09/21/13 11/11/17 LORazepam [Lorazepam] 0.5 mg PO TID PRN 09/21/13 11/11/17 Citalopram Hydrobromide [CeleXA] 40 mg PO DAILY 08/29/17 11/11/17 Fycompa 4 Mg 4 mg PO HS 09/25/17 11/11/17 Ibuprofen [Motrin] 600 mg PO Q8HR PRN 09/25/17 11/11/17 Aspirin EC [Ecotrin Low Dose] 81 mg PO DAILY 11/11/17 11/11/17 Carvedilol [Coreg] 3.125 mg PO BID 11/11/17 11/11/17 Levothyroxine Sodium [Synthroid] 50 mcg PO DAILY 11/11/17 11/11/17 Meclizine [Antivert] 25 mg PO TID 11/11/17 11/11/17 Omeprazole 20 mg PO BID 11/11/17 11/11/17 Potassium Chloride ER [K-Dur 20] 20 meq PO BID 11/11/17 11/11/17 Zolpidem [Ambien] 10 mg PO HS PRN 11/11/17 11/11/17 buPROPion XL [Wellbutrin Xl] 150 mg PO HS 11/11/17 11/11/17 Previous Rx's Medication Instructions Recorded levETIRAcetam [Keppra] 1,000 mg PO Q12HR #120 tab 10/13/17 levETIRAcetam [Keppra] 250 mg PO Q12HR #60 tab 10/13/17 Allergies Allergy/AdvReac Type Severity Reaction Status Date / Time ciprofloxacin [From Cipro] Allergy Unknown Verified 11/11/17 12:41 ciprofloxacin HCl Allergy Unknown Verified 11/11/17 12:41 [From Cipro] hydromorphone [From Dilaudid] Allergy Rash/Hives Verified 11/11/17 12:41 soy Allergy Anaphylaxis Verified 11/11/17 12:41 tetracycline [Tetracycline] Allergy Rash/Hives Verified 11/11/17 12:41 tioconazole [From Monistat 1] Allergy Rash/Hives Verified 11/11/17 12:41 codeine AdvReac Rash/Hives Verified 11/11/17 12:41 hydrocodone bitartrate AdvReac Rash/Hives Verified 11/11/17 12:41 [From Lortab] meperidine HCl [From Demerol] AdvReac Rash/Hives Verified 11/11/17 12:41 morphine AdvReac Rash/Hives Verified 11/11/17 12:41 propoxyphene napsylate AdvReac Rash/Hives Verified 11/11/17 12:41 [From Darvocet-N 100] Sulfa (Sulfonamide AdvReac Rash/Hives Verified 11/11/17 12:41 Antibiotics) Review of Systems ROS Statement: Those systems with pertinent positive or pertinent negative responses have been documented in the HPI. ROS Other: All systems not noted in ROS Statement are negative. Past Medical History Past Medical History: GERD/Reflux, GI Bleed, Hyperlipidemia, Hypertension, Osteoarthritis (OA), Seizure Disorder, Thyroid Disorder Additional Past Medical History / Comment(s): last seizure couple of weeks ago, history of depression History of Any Multi-Drug Resistant Organisms: None Reported Past Surgical History: Back Surgery, Cholecystectomy, Heart Catheterization, Hernia Repair, Joint Replacement, Pacemaker, Tonsillectomy Additional Past Surgical History / Comment(s): LAP BAND INSERTED & REMOVED, GASTRIC SLEEVE (2016), GINI TOTAL KNEES, CERVICAL FUSION (2-7), BOWEL RESECTION. , INCISIONAL HERNIA'S. STATES SEVERAL HEART CATHS-NO STENTS (DONE AT [facility] & [facility]) Past Anesthesia/Blood Transfusion Reactions: No Reported Reaction Past Psychological History: Anxiety, Depression Smoking Status: Never smoker Past Alcohol Use History: None Reported Past Drug Use History: None Reported - Past Family History Mother Family Medical History: Pulmonary Embolus Additional Family Medical History / Comment(s): Multiple TIA's. Father Family Medical History: Cancer Additional Family Medical History / Comment(s): Lung Sister(s) Family Medical History: Cancer Additional Family Medical History / Comment(s): OVARIAN CANCER General Exam - General Exam Comments Initial Comments: GENERAL: Patient is well-developed and well-nourished. Patient is nontoxic and well- hydrated and is in mild distress. ENT: Neck is soft and supple. No significant lymphadenopathy is noted. Oropharynx is clear. Moist mucous membranes. Neck has full range of motion without eliciting any pain. EYES: The sclera were anicteric and conjunctiva were pink and moist. Extraocular movements were intact and pupils were equal round and reactive to light. Eyelids were unremarkable. PULMONARY: Unlabored respirations. Good breath sounds bilaterally. No audible rales rhonchi or wheezing was noted. CARDIOVASCULAR: There is a regular rate and rhythm without any murmurs gallops or rubs. ABDOMEN: Soft and nontender with normal bowel sounds. No palpable organomegaly was noted. There is no palpable pulsatile mass. SKIN: Skin is clear with no lesions or rashes and otherwise unremarkable. NEUROLOGIC: Patient is alert and oriented x3. Cranial nerves II through XII are grossly intact. Motor and sensory are also intact. Normal speech, volume and content. Symmetrical smile. MUSCULOSKELETAL: Normal extremities with adequate strength and full range of motion. No lower extremity swelling or edema. No calf tenderness. LYMPHATICS: No significant lymphadenopathy is noted PSYCHIATRIC: Normal psychiatric evaluation. Normal interpersonal interactions appears functionally intact in deals appropriately with others. No signs of depression. No signs of anxiety. Limitations: no limitations Course Vital Signs 11/11/17 11/11/17 11/11/17 11:54 12:13 12:46 Temperature 97.8 F Pulse Rate 81 60 Pulse Rate [ 64 Bilateral Supine Supervisor Diagnostic] Respiratory 18 16 Rate Blood Pressure 157/91 141/72 O2 Sat by Pulse 96 99 Oximetry 11/11/17 13:13 Temperature Pulse Rate 57 L Pulse Rate [ Bilateral Supine Supervisor Diagnostic] Respiratory 18 Rate Blood Pressure 151/82 O2 Sat by Pulse 98 Oximetry Medical Decision Making - Medical Decision Making EKG shows a normal sinus rhythm at 60 bpm. Was 200 QRS is 90 QT interval 402 QTC is [address] segment elevation or depression. Chest x-ray shows no acute abnormality. Patient had intermittent chest pain while in the emergency department. I diagnosed the patient with unstable angina/started on heparin. I spoke with Dr. Menendez he agreed to admit the patient admitted the patient I wrote admitting orders I consult cardiology I continue aspirin heparin and Nitrol the floor. - Lab Data Result diagrams: 11/11/17 12:30 11/11/17 12:30 Lab Results 11/11/17 11/11/17 11/11/17 Range/Units 12:30 12:30 12:30 WBC 5.5 (3.8-10.6) k/uL RBC 4.75 (3.80-5.40) m/uL Hgb 11.8 (11.4-16.0) gm/dL Hct 37.5 (34.0-46.0) % MCV 78.9 L (80.0-100.0) fL MCH 24.8 L (25.0-35.0) pg MCHC 31.4 (31.0-37.0) g/dL RDW 15.2 (11.5-15.5) % Plt Count 304 (150-450) k/uL Neutrophils % 53 % Lymphocytes % 28 % Monocytes % 8 % Eosinophils % 8 % Basophils % 1 % Neutrophils # 2.9 (1.3-7.7) k/uL Lymphocytes # 1.6 (1.0-4.8) k/uL Monocytes # 0.4 (0-1.0) k/uL Eosinophils # 0.5 (0-0.7) k/uL Basophils # 0.1 (0-0.2) k/uL PT (9.0-12.0) sec INR (<1.2) APTT (22.0-30.0) sec Sodium 140 (137-145) mmol/L Potassium 4.4 (3.5-5.1) mmol/L Chloride 110 H (98-107) mmol/L Carbon Dioxide 22 (22-30) mmol/L Anion Gap 8 mmol/L BUN 7 (7-17) mg/dL Creatinine 0.88 (0.52-1.04) mg/dL Est GFR (CKD-EPI)AfAm 79 (>60 ml/min/1.73 sqM) Est GFR (CKD-EPI)NonAf 68 (>60 ml/min/1.73 sqM) Glucose 81 (74-99) mg/dL Calcium 9.1 (8.4-10.2) mg/dL Magnesium 2.3 (1.6-2.3) mg/dL Total Bilirubin 0.5 (0.2-1.3) mg/dL AST 23 (14-36) U/L ALT 27 (9-52) U/L Alkaline Phosphatase 109 (38-126) U/L Total Creatine Kinase 33 (30-135) U/L CK-MB (CK-2) 0.3 (0.0-2.4) ng/mL CK-MB (CK-2) Rel Index 0.9 Troponin I <0.012 (0.000-0.034) ng/mL Total Protein 6.4 (6.3-8.2) g/dL Albumin 3.7 (3.5-5.0) g/dL 11/11/17 Range/Units 12:30 WBC (3.8-10.6) k/uL RBC (3.80-5.40) m/uL Hgb (11.4-16.0) gm/dL Hct (34.0-46.0) % MCV (80.0-100.0) fL MCH (25.0-35.0) pg MCHC (31.0-37.0) g/dL RDW (11.5-15.5) % Plt Count (150-450) k/uL Neutrophils % % Lymphocytes % % Monocytes % % Eosinophils % % Basophils % % Neutrophils # (1.3-7.7) k/uL Lymphocytes # (1.0-4.8) k/uL Monocytes # (0-1.0) k/uL Eosinophils # (0-0.7) k/uL Basophils # (0-0.2) k/uL PT 9.8 (9.0-12.0) sec INR 1.0 (<1.2) APTT 22.8 (22.0-30.0) sec Sodium (137-145) mmol/L Potassium (3.5-5.1) mmol/L Chloride (98-107) mmol/L Carbon Dioxide (22-30) mmol/L Anion Gap mmol/L BUN (7-17) mg/dL Creatinine (0.52-1.04) mg/dL Est GFR (CKD-EPI)AfAm (>60 ml/min/1.73 sqM) Est GFR (CKD-EPI)NonAf (>60 ml/min/1.73 sqM) Glucose (74-99) mg/dL Calcium (8.4-10.2) mg/dL Magnesium (1.6-2.3) mg/dL Total Bilirubin (0.2-1.3) mg/dL AST (14-36) U/L ALT (9-52) U/L Alkaline Phosphatase (38-126) U/L Total Creatine Kinase (30-135) U/L CK-MB (CK-2) (0.0-2.4) ng/mL CK-MB (CK-2) Rel Index Troponin I (0.000-0.034) ng/mL Total Protein (6.3-8.2) g/dL Albumin (3.5-5.0) g/dL Critical Care Time Critical Care Time: Yes Total Critical Care Time: 35 Disposition Clinical Impression: Unstable angina pectoris Disposition: ADMITTED IP TO THIS [facility] Referrals: Cade Menendez DO [Primary Care Provider] - 1-2 days Time of Disposition: 13:47
[2017-11-11 12:56] LABS: Partial Thromboplastin Time 22.8 sec (22.0-30.0); Prothrombin Time 9.8 sec (9.0-12.0)
[2017-11-11 12:57] LABS: Albumin 3.7 g/dL (3.5-5.0); Calcium 9.1 mg/dL (8.4-10.2); Magnesium 2.3 mg/dL (1.6-2.3); Potassium 4.4 mmol/L (3.5-5.1); Total Bilirubin 0.5 mg/dL (0.2-1.3); Total Protein 6.4 g/dL (6.3-8.2)
[2017-11-11 13:02] LABS: Basophils # (A) 0.1 k/uL (0-0.2); Basophils % (A) 1 %; Eosinophils # (A) 0.5 k/uL (0-0.7); Eosinophils % (A) 8 %; HCT 37.5 % (34.0-46.0); HGB 11.8 gm/dL (11.4-16.0); Lymphocytes # (A) 1.6 k/uL (1.0-4.8); Lymphocytes % (A) 28 %; MCH 24.8 pg (25.0-35.0); MCHC 31.4 g/dL (31.0-37.0); MCV 78.9 fL (80.0-100.0); Mean Platelet Volume 7.1; Monocytes # (A) 0.4 k/uL (0-1.0); Monocytes % (A) 8 %; Neutrophils # (A) 2.9 k/uL (1.3-7.7); Neutrophils % (A) 53 %; Platelet Count 304 k/uL (150-450); RBC 4.75 m/uL (3.80-5.40); RDW 15.2 % (11.5-15.5); WBC 5.5 k/uL (3.8-10.6)
[2017-11-11 13:16] LABS: Creatine Kinase 33 U/L (30-135)
--- NOTE | 2017-11-11 13:19 | XR ---
EXAMINATION TYPE: XR chest 2V DATE OF EXAM: 11/11/2017 COMPARISON: 10/25/2017 HISTORY: Shortness of breath TECHNIQUE: Frontal and lateral views of the chest are obtained. FINDINGS: Scattered senescent parenchymal changes noted. Hyperinflation compatible with COPD. No evidence for infiltrate. No evidence for atelectasis. Heart size is stable. Mediastinal structures are stable and grossly unremarkable. No evidence for hilar prominence. Degenerative changes dorsal spine. IMPRESSION: 1. No evidence for acute pulmonary disease.
[2017-11-11 13:30] LABS: Creatine Kinase MB 0.3 ng/mL (0.0-2.4); Troponin I <0.012 ng/mL (0.000-0.034)
[2017-11-11] MEDS ORDERED: HEPARIN SOD,PORK IN 0.45% NACL 25,000 UNIT in 0.45% NACL 1 500ML.BAG IV SCH (13:45)
[2017-11-11] MEDS ORDERED: HEPARIN SODIUM,PORCINE 5,000 UNIT/ML 1 ML VIAL IV ONE (13:45)
[2017-11-11] MEDS ORDERED: NITROGLYCERIN SL TABS 0.4 MG TAB SUBLINGUAL PRN (13:47)
[2017-11-11] MEDS: NITROGLYCERIN OINT 1 INCH/GM PACKET TOPICAL SCH (19:23)
[2017-11-11 20:02] LABS: Creatine Kinase 39 U/L (30-135)
[2017-11-11 20:15] LABS: Creatine Kinase MB 0.3 ng/mL (0.0-2.4); Troponin I <0.012 ng/mL (0.000-0.034)
[2017-11-11] MEDS ORDERED: ZOLPIDEM 10 MG TAB PO PRN (21:57)
[2017-11-11] MEDS ORDERED: LORazepam 0.5 MG TAB PO PRN (21:57)
[2017-11-11] MEDS ORDERED: CYCLOBENZAPRINE 10 MG TAB PO PRN (21:57)
[2017-11-11] MEDS ORDERED: buPROPion XL 150 MG TAB.ER.24H PO SCH (22:00)
[2017-11-11] MEDS ORDERED: ATORVASTATIN 10 MG TAB PO SCH (22:00)
[2017-11-11] MEDS ORDERED: levETIRAcetam 500 MG TAB PO SCH (22:00)
[2017-11-11] MEDS: MECLIZINE 25 MG TAB PO SCH (22:48)
[2017-11-11] MEDS: CARVEDILOL 3.125 MG TAB PO SCH (22:49)
[2017-11-11] MEDS: POTASSIUM CHLORIDE ER 20 MEQ TAB.ER PO SCH (22:49)
[2017-11-11 23:06] VITALS: BMI 37.0
[2017-11-12] MEDS: IBUPROFEN 600 MG TAB PO PRN ×2 (00:07→12:08)
[2017-11-12 00:36] LABS: Cholesterol 145 mg/dL (<200); HDL Cholesterol 67 mg/dL (40-60); LDL Cholesterol,Calculated 54 mg/dL (0-99); Triglycerides 119 mg/dL (<150)
[2017-11-12 01:39] LABS: Creatine Kinase 30 U/L (30-135)
[2017-11-12] MEDS: NITROGLYCERIN OINT 1 INCH/GM PACKET TOPICAL SCH ×2 (01:42→06:25)
[2017-11-12 01:52] LABS: Creatine Kinase MB 0.3 ng/mL (0.0-2.4); Troponin I <0.012 ng/mL (0.000-0.034)
[2017-11-12] MEDS: LEVOTHYROXINE 50 MCG TAB PO SCH ×2 (07:02→11:00)
[2017-11-12] MEDS ORDERED: PANTOPRAZOLE 40 MG TABLET PO SCH (07:30)
[2017-11-12 07:57] VITALS: RESP 18
[2017-11-12] MEDS ORDERED: ASPIRIN 325 MG TAB PO SCH (09:00)
[2017-11-12] MEDS ORDERED: levETIRAcetam 250 MG TAB PO SCH (09:00)
[2017-11-12] MEDS ORDERED: CITALOPRAM HYDROBROMIDE 20 MG TAB PO SCH (09:00)
[2017-11-12] MEDS ORDERED: RX INFO: IV CONTRAST WAS GIVEN 1 EACH MISC MISCELLANE PRN (09:14)
[2017-11-12] MEDS: MECLIZINE 25 MG TAB PO SCH ×2 (10:59→17:41)
[2017-11-12] MEDS: CARVEDILOL 3.125 MG TAB PO SCH ×2 (11:00→17:41)
[2017-11-12] MEDS: POTASSIUM CHLORIDE ER 20 MEQ TAB.ER PO SCH (11:00)
--- NOTE | 2017-11-12 11:15 | ECHOF ---
Referral Reason:cp, recent pm MEASUREMENTS -------- HEIGHT: 152.4 cm WEIGHT: 86.2 kg BP: 115/68 RVIDd: 3.4 cm (< 3.3) FINDINGS -------- Paced rhythm. Limited Study for LV function. Overall left ventricular systolic function is low-normal with, an EF between 50 - 55 %. The right ventricle is moderate to severely enlarged. There is no pericardial effusion. CONCLUSIONS -------- 1. Limited Study for LV function. 2. Overall left ventricular systolic function is low-normal with, an EF between 50 - 55 %. 3. The right ventricle is moderate to severely enlarged. 4. There is no pericardial effusion. RETAIL ADVISOR: Kathleen Duggan RDCS
[2017-11-12 11:59] VITALS: TEMP 98.2
--- NOTE | 2017-11-12 12:16 | P.HPIM ---
History of Present Illness H&P Date: 11/12/17 Chief Complaint: Chest pain 67-year-old female who presented to the emergency room with a chief complaint of chest pain. The patient describes her pain as left-sided chest pain and states "it felt like somebody was sitting on my chest". The patient states she was not exerting herself in anyway at the time. She reports associated shortness of breath. The pain did not radiate to her neck, jaw, or arm. She denied diaphoresis. Denied nausea or vomiting. She states that she took an aspirin when the pain occurred but her symptoms were not relieved so she presented to the emergency room for further evaluation. The patient has a history of recent pacemaker insertion on 10/12/2017 for sick sinus syndrome after she presented with loss of consciousness and syncope. She also has a history of gastroesophageal reflux disease, hyperlipidemia, hypertension, osteoarthritis, hypothyroidism, and seizure disorder. The patient states that she had a grand mal seizure on Friday. She states that her dog noticed the seizure and was by her side when she came to. She denies biting her tongue or any other injuries. She states she has been taking her seizure medications as prescribed. The patient sees a neurologist, who does not have privileges at [facility], on a regular basis and has an appointment this Friday. Chest x-ray was negative for an acute cardiopulmonary process. EKG reveals sinus rhythm with a rate of 60 bpm. Laboratory data: White count 5.5. Hemoglobin 11.8. Platelet count 304. INR 1.0. Sodium 140. Potassium 4.4. BUN 8. Creatinine 0.88. Magnesium 2.3. AST and ALT within normal limits. Troponins negative 3. Triglycerides 119. Cholesterol 145. LDL 54. HDL 67. The patient was started on a heparin drip and a nitro patch and was admitted to the observation unit under the care of Dr. Menendez. Consultations were placed to cardiology for further evaluation. Review of Systems Those systems with pertinent positive or pertinent negative responses have been documented in the HPI Past Medical History Past Medical History: GERD/Reflux, GI Bleed, Hyperlipidemia, Hypertension, Osteoarthritis (OA), Seizure Disorder, Thyroid Disorder Additional Past Medical History / Comment(s): last seizure two days ago, history of depression History of Any Multi-Drug Resistant Organisms: None Reported Past Surgical History: Back Surgery, Cholecystectomy, Heart Catheterization, Hernia Repair, Joint Replacement, Pacemaker, Tonsillectomy Additional Past Surgical History / Comment(s): LAP BAND INSERTED & REMOVED, GASTRIC SLEEVE (2016), GINI TOTAL KNEES, CERVICAL FUSION (2-7), BOWEL RESECTION. , INCISIONAL HERNIA'S. STATES SEVERAL HEART CATHS-NO STENTS (DONE AT [facility] & [facility]) Past Anesthesia/Blood Transfusion Reactions: No Reported Reaction Type of Cardiac Device: Permanent Pacemaker Device Placement Date:: 10/12/17 Past Psychological History: Anxiety, Depression Smoking Status: Never smoker Past Alcohol Use History: None Reported Past Drug Use History: None Reported - Past Family History Mother Family Medical History: Pulmonary Embolus Additional Family Medical History / Comment(s): Multiple TIA's. Father Family Medical History: Cancer Additional Family Medical History / Comment(s): Lung Sister(s) Family Medical History: Cancer Additional Family Medical History / Comment(s): OVARIAN CANCER Medications and Allergies Home Medications Medication Instructions Recorded Confirmed Type Atorvastatin [Lipitor] 10 mg PO HS 09/21/13 11/11/17 History Cyclobenzaprine [Flexeril] 10 mg PO BID PRN 09/21/13 11/11/17 History LORazepam [Lorazepam] 0.5 mg PO TID PRN 09/21/13 11/11/17 History Citalopram Hydrobromide [CeleXA] 40 mg PO DAILY 08/29/17 11/11/17 History Fycompa 4 Mg 4 mg PO HS 09/25/17 11/11/17 History Ibuprofen [Motrin] 600 mg PO Q8HR PRN 09/25/17 11/11/17 History Aspirin EC [Ecotrin Low Dose] 81 mg PO DAILY 11/11/17 11/11/17 History Carvedilol [Coreg] 3.125 mg PO BID 11/11/17 11/11/17 History Levothyroxine Sodium [Synthroid] 50 mcg PO DAILY 11/11/17 11/11/17 History Meclizine [Antivert] 25 mg PO TID 11/11/17 11/11/17 History Omeprazole 20 mg PO BID 11/11/17 11/11/17 History Potassium Chloride ER [K-Dur 20] 20 meq PO BID 11/11/17 11/11/17 History Zolpidem [Ambien] 10 mg PO HS PRN 11/11/17 11/11/17 History buPROPion XL [Wellbutrin Xl] 150 mg PO HS 11/11/17 11/11/17 History levETIRAcetam [Keppra] 1,000 mg PO DAILY 11/11/17 11/11/17 History levETIRAcetam [Keppra] 1,250 mg PO HS 11/11/17 11/11/17 History Allergies Allergy/AdvReac Type Severity Reaction Status Date / Time ciprofloxacin [From Cipro] Allergy Unknown Verified 11/11/17 12:41 ciprofloxacin HCl Allergy Unknown Verified 11/11/17 12:41 [From Cipro] hydromorphone [From Dilaudid] Allergy Rash/Hives Verified 11/11/17 12:41 soy Allergy Anaphylaxis Verified 11/11/17 12:41 tetracycline [Tetracycline] Allergy Rash/Hives Verified 11/11/17 12:41 tioconazole [From Monistat 1] Allergy Rash/Hives Verified 11/11/17 12:41 codeine AdvReac Rash/Hives Verified 11/11/17 12:41 hydrocodone bitartrate AdvReac Rash/Hives Verified 11/11/17 12:41 [From Lortab] meperidine HCl [From Demerol] AdvReac Rash/Hives Verified 11/11/17 12:41 morphine AdvReac Rash/Hives Verified 11/11/17 12:41 propoxyphene napsylate AdvReac Rash/Hives Verified 11/11/17 12:41 [From Darvocet-N 100] Sulfa (Sulfonamide AdvReac Rash/Hives Verified 11/11/17 12:41 Antibiotics) Physical Exam Vitals: Vital Signs Temp Pulse Pulse Pulse Resp BP BP 11/12/17 07:30 97.5 F L 52 L 18 115/68 11/12/17 04:00 16 11/12/17 03:57 97.5 F L 53 L 16 119/67 11/12/17 00:00 16 11/11/17 23:21 97.5 F L 60 14 137/77 11/11/17 20:03 97.4 F L 59 L 16 132/74 11/11/17 19:10 62 18 121/68 11/11/17 16:55 61 18 122/70 11/11/17 15:55 59 L 19 144/75 11/11/17 15:11 57 L 18 160/79 11/11/17 13:13 57 L 18 151/82 11/11/17 12:46 60 16 141/72 11/11/17 12:13 64 11/11/17 11:54 97.8 F 81 18 157/91 Pulse Ox 11/12/17 07:30 95 11/12/17 04:00 11/12/17 03:57 92 L 11/12/17 00:00 11/11/17 23:21 94 L 11/11/17 20:03 96 11/11/17 19:10 97 11/11/17 16:55 97 11/11/17 15:55 99 11/11/17 15:11 98 11/11/17 13:13 98 11/11/17 12:46 99 11/11/17 12:13 11/11/17 11:54 96 Intake and Output 11/11/17 11/12/17 11/12/17 22:59 06:59 14:59 Intake Total 214.056 Balance 214.056 Intake: Intake, IV Titration 214.056 Amount Heparin Sod,Pork in 0.45% 214.056 NaCl 25,000 unit In 0.45 % NaCl 1 500ml.bag @ 11.5 UNITS/KG/HR 19.82 mls/hr IV .Q24H [facility] Rx#: [id number] Other: Voiding Method Toilet Toilet # Voids 1 Weight 86.183 kg GENERAL: This is a 67-year-old female in no apparent distress at the time of examination. Pleasant and cooperative. HEENT: Head is atraumatic, normocephalic. Pupils are equal, round, and reactive to light. Sclerae anicteric. Conjunctivae are clear. Mucus membranes of the mouth are moist. Neck is supple. RESPIRATORY: Clear to ausculation. No wheezes, rales, or rhonchi. No use of accessory muscles. Patient maintaining oxygen saturation greater than 92%. No chest wall tenderness is noted on palpation or with deep breathing. CARDIOVASCULAR: Regular rate and rhythm. S1 and S2 noted. No JVD noted. No S3 or S4 noted. GASTROINTESTINAL: No distention noted. Abdomen soft and round. Normal active bowel sounds auscultated x 4 quadrants. No pain or tenderness noted upon palpation. INTEGUMENTARY: Pacemaker surgical site healing well. No cyanosis. No jaundice. No rashes noted. No cellulitis noted. EXTREMITIES: 2+ peripheral pulses. No evidence of peripheral edema. No calf tenderness noted. NEUROLOGIC: Cranial nerves II-XII intact. PSYCHIATRIC: Awake, alert, and oriented X 3. Appropriate affect. Intact judgement and insight. Results CBC & Chem 7: 11/11/17 12:30 11/11/17 12:30 Labs: Abnormal Lab Results - Last 24 Hours (Table) 11/11/17 11/11/17 11/11/17 Range/Units 12:30 12:30 12:30 MCV 78.9 L (80.0-100.0) fL MCH 24.8 L (25.0-35.0) pg APTT (22.0-30.0) sec Chloride 110 H (98-107) mmol/L HDL Cholesterol 67 H (40-60) mg/dL 11/11/17 Range/Units 22:31 MCV (80.0-100.0) fL MCH (25.0-35.0) pg APTT 94.6 H (22.0-30.0) sec Chloride (98-107) mmol/L HDL Cholesterol (40-60) mg/dL Thrombosis Risk Factor Assmnt - Choose All That Apply Each Factor Represents 1 point: Obesity (BMI >25) Each Risk Factor Represents 2 Points: Age 61-74 years Thrombosis Risk Factor Assessment Total Risk Factor Score: 3 Thrombosis Risk Factor Assessment Level: Moderate Risk Assessment and Plan Plan: ASSESSMENT: Chest pain, present on admission, troponins negative 3, cardiology following History of permanent pacemaker insertion, September 2017 Seizure disorder, patient reports grand mal seizure on Friday Hypertension Hyperlipidemia Gastroesophageal reflux disease Osteoarthritis Obesity: BMI 37.1 PLAN: Cardiology consulted. Await further recommendations and input. Echo ordered. Await results. Continue seizure medications. Seizure precautions. Patient encouraged to keep scheduled appointment with her neurologist on Friday. Further orders pending patients course. Nurse practitioner note has been reviewed by physician. Signing provider agrees with the documented findings, assessment, and plan of care.
--- NOTE | 2017-11-12 12:57 | P.CRDCN ---
History of Present Illness History of present illness: Mrs. 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 Pacemaker was inserted October 12 of this year. It is a [employer] dual-chamber device. We have been assisting her in consultation for symptoms of chest discomfort. She states on Friday while at home she had a full tonic-clonic seizure with loss of bladder control. Since that time she has felt a nonspecific discomfort in the chest from shoulder to shoulder in the anterior region with radiation down the left arm at times. She states her left arm feels sore. He pain comes described as a sharp sensation with shortness of breath. She denies dizziness, palpitations, nausea , vomiting or diaphoresis. EKG reveals sinus mechanism with poor R-wave progression. This is similar to previous EKGs. No acute ST or T wave abnormalities noted. Chest x-ray negative for acute cardiopulmonary process. Laboratory data reviewed, hemoglobin 11.8, platelets 304, sodium 140, potassium 4.4, magnesium 2.3, creatinine 0.8, cardiac enzymes negative 3, LDL 54, HDL 67. Current cardiac medications include carvedilol 3.125 mg twice a day, aspirin 81 mg daily and atorvastatin 10 mg daily. She also takes Celexa, Flexeril, lorazepam, Ambien, Wellbutrin, Synthroid, Antivert and Keppra. She underwent cardiac catheterization in 2016 which was negative for obstructive coronary artery disease. Review of Systems At the time of my exam: CONSTITUTIONAL: Denies fever. Denies chills. EYES: Denies blurred vision. Denies vision changes. Denies eye pain. EARS, NOSE, MOUTH & THROAT: Denies headache. Denies sore throat. Denies ear pain. CARDIOVASCULAR: Denies chest pain. Denies shortness of breath. Denies orthopnea. Denies PND. Denies palpitations. RESPIRATORY: Denies cough. GASTROINTESTINAL: Denies abdominal pain. Denies diarrhea. Denies constipation. Denies nausea. Denies vomiting. MUSCULOSKELETAL: Denies myalgias. INTEGUMENTARY: Denies pruitis. Denies rash. NEUROLOGIC: Denies numbness. Denies tingling. Denies weakness. PSYCHIATRIC: Denies anxiety. Denies depression. ENDOCRINE: Denies fatigue. Denies weight change. Denies polydipsia. Denies polyurina. GENITOURINARY: Denies burning, hematuria or urgency with micturation. HEMATOLOGIC: Denies history of anemia. Denies bleeding. Past Medical History Past Medical History: GERD/Reflux, GI Bleed, Hyperlipidemia, Hypertension, Osteoarthritis (OA), Seizure Disorder, Thyroid Disorder Additional Past Medical History / Comment(s): last seizure two days ago, history of depression History of Any Multi-Drug Resistant Organisms: None Reported Past Surgical History: Back Surgery, Cholecystectomy, Heart Catheterization, Hernia Repair, Joint Replacement, Pacemaker, Tonsillectomy Additional Past Surgical History / Comment(s): LAP BAND INSERTED & REMOVED, GASTRIC SLEEVE (2016), GINI TOTAL KNEES, CERVICAL FUSION (2-7), BOWEL RESECTION. , INCISIONAL HERNIA'S. STATES SEVERAL HEART CATHS-NO STENTS (DONE AT [facility] & [facility]) Past Anesthesia/Blood Transfusion Reactions: No Reported Reaction Type of Cardiac Device: Permanent Pacemaker Device Placement Date:: 10/12/17 Past Psychological History: Anxiety, Depression Smoking Status: Never smoker Past Alcohol Use History: None Reported Past Drug Use History: None Reported - Past Family History Mother Family Medical History: Pulmonary Embolus Additional Family Medical History / Comment(s): Multiple TIA's. Father Family Medical History: Cancer Additional Family Medical History / Comment(s): Lung Sister(s) Family Medical History: Cancer Additional Family Medical History / Comment(s): OVARIAN CANCER Medications and Allergies Home Medications Medication Instructions Recorded Confirmed Type Atorvastatin [Lipitor] 10 mg PO HS 09/21/13 11/11/17 History Cyclobenzaprine [Flexeril] 10 mg PO BID PRN 09/21/13 11/11/17 History LORazepam [Lorazepam] 0.5 mg PO TID PRN 09/21/13 11/11/17 History Citalopram Hydrobromide [CeleXA] 40 mg PO DAILY 08/29/17 11/11/17 History Fycompa 4 Mg 4 mg PO HS 09/25/17 11/11/17 History Ibuprofen [Motrin] 600 mg PO Q8HR PRN 09/25/17 11/11/17 History Aspirin EC [Ecotrin Low Dose] 81 mg PO DAILY 11/11/17 11/11/17 History Carvedilol [Coreg] 3.125 mg PO BID 11/11/17 11/11/17 History Levothyroxine Sodium [Synthroid] 50 mcg PO DAILY 11/11/17 11/11/17 History Meclizine [Antivert] 25 mg PO TID 11/11/17 11/11/17 History Omeprazole 20 mg PO BID 11/11/17 11/11/17 History Potassium Chloride ER [K-Dur 20] 20 meq PO BID 11/11/17 11/11/17 History Zolpidem [Ambien] 10 mg PO HS PRN 11/11/17 11/11/17 History buPROPion XL [Wellbutrin Xl] 150 mg PO HS 11/11/17 11/11/17 History levETIRAcetam [Keppra] 1,000 mg PO DAILY 11/11/17 11/11/17 History levETIRAcetam [Keppra] 1,250 mg PO HS 11/11/17 11/11/17 History Allergies Allergy/AdvReac Type Severity Reaction Status Date / Time ciprofloxacin [From Cipro] Allergy Unknown Verified 11/11/17 12:41 ciprofloxacin HCl Allergy Unknown Verified 11/11/17 12:41 [From Cipro] hydromorphone [From Dilaudid] Allergy Rash/Hives Verified 11/11/17 12:41 soy Allergy Anaphylaxis Verified 11/11/17 12:41 tetracycline [Tetracycline] Allergy Rash/Hives Verified 11/11/17 12:41 tioconazole [From Monistat 1] Allergy Rash/Hives Verified 11/11/17 12:41 codeine AdvReac Rash/Hives Verified 11/11/17 12:41 hydrocodone bitartrate AdvReac Rash/Hives Verified 11/11/17 12:41 [From Lortab] meperidine HCl [From Demerol] AdvReac Rash/Hives Verified 11/11/17 12:41 morphine AdvReac Rash/Hives Verified 11/11/17 12:41 propoxyphene napsylate AdvReac Rash/Hives Verified 11/11/17 12:41 [From Darvocet-N 100] Sulfa (Sulfonamide AdvReac Rash/Hives Verified 11/11/17 12:41 Antibiotics) Physical Exam Vitals: Vital Signs Temp Pulse Pulse Resp BP BP Pulse Ox 07/25/18 11:58 98.2 F 63 18 150/74 95 11/12/17 07:30 97.5 F L 52 L 18 115/68 95 11/12/17 04:00 16 11/12/17 03:57 97.5 F L 53 L 16 119/67 92 L 11/12/17 00:00 16 11/11/17 23:21 97.5 F L 60 14 137/77 94 L 11/11/17 20:03 97.4 F L 59 L 16 132/74 96 11/11/17 19:10 62 18 121/68 97 11/11/17 16:55 61 18 122/70 97 11/11/17 15:55 59 L 19 144/75 99 11/11/17 15:11 57 L 18 160/79 98 11/11/17 13:13 57 L 18 151/82 98 11/11/17 12:46 60 16 141/72 99 Intake and Output 11/11/17 11/12/17 11/12/17 22:59 06:59 14:59 Intake Total 214.056 Balance 214.056 Intake: Intake, IV Titration 214.056 Amount Heparin Sod,Pork in 0.45% 214.056 NaCl 25,000 unit In 0.45 % NaCl 1 500ml.bag @ 11.5 UNITS/KG/HR 19.82 mls/hr IV .Q24H [facility] Rx#: [id number] Other: Voiding Method Toilet Toilet # Voids 1 Weight 86.183 kg Blood pressure 150/70 heart rate 63 afebrile maintaining oxygen saturation on room air GENERAL: This is a 67-year-old female in no apparent distress at the time of my examination. Obese. HEENT: Head is atraumatic, normocephalic. Pupils are equal, round. Sclerae anicteric. Conjunctivae are clear. Mucous membranes of the mouth are moist. Neck is supple. There is no jugular venous distention. No carotid bruit is heard. LUNGS: Clear to auscultation no wheezes, rales or rhonchi. No chest wall tenderness is noted on palpation or with deep breathing. HEART: Regular rate and rhythm without murmurs, rubs or gallops. S1 and S2 heard. ABDOMEN: Soft, nontender. Bowel sounds are heard. No organomegaly noted. EXTREMITIES: No evidence of peripheral edema and no calf tenderness noted. VASCULAR: Radial and dorsalis pedis pulses palpated, no evidence of clubbing. NEUROLOGIC: Patient is awake, alert and oriented x3. Results 11/11/17 12:30 11/11/17 12:30 Cardiac Enzymes 11/11/17 11/11/17 11/11/17 Range/Units 12:30 12:30 19:14 AST 23 (14-36) U/L CK-MB (CK-2) 0.3 0.3 (0.0-2.4) ng/mL Troponin I <0.012 <0.012 (0.000-0.034) ng/mL 11/12/17 Range/Units 00:44 AST (14-36) U/L CK-MB (CK-2) 0.3 (0.0-2.4) ng/mL Troponin I <0.012 (0.000-0.034) ng/mL Coagulation 11/11/17 11/11/17 Range/Units 12:30 22:31 PT 9.8 (9.0-12.0) sec APTT 22.8 94.6 H (22.0-30.0) sec Lipids 11/11/17 Range/Units 12:30 Triglycerides 119 (<150) mg/dL Cholesterol 145 (<200) mg/dL HDL Cholesterol 67 H (40-60) mg/dL CBC 11/11/17 Range/Units 12:30 WBC 5.5 (3.8-10.6) k/uL RBC 4.75 (3.80-5.40) m/uL Hgb 11.8 (11.4-16.0) gm/dL Hct 37.5 (34.0-46.0) % Plt Count 304 (150-450) k/uL Comprehensive Metabolic Panel 11/11/17 Range/Units 12:30 Sodium 140 (137-145) mmol/L Potassium 4.4 (3.5-5.1) mmol/L Chloride 110 H (98-107) mmol/L Carbon Dioxide 22 (22-30) mmol/L BUN 7 (7-17) mg/dL Creatinine 0.88 (0.52-1.04) mg/dL Glucose 81 (74-99) mg/dL Calcium 9.1 (8.4-10.2) mg/dL AST 23 (14-36) U/L ALT 27 (9-52) U/L Alkaline Phosphatase 109 (38-126) U/L Total Protein 6.4 (6.3-8.2) g/dL Albumin 3.7 (3.5-5.0) g/dL Current Medications Generic Name Dose Route Start Last Admin Trade Name Freq PRN Reason Stop Dose Admin Atorvastatin Calcium 10 mg 11/11/17 22:00 11/11/17 22:50 Lipitor PO 10 mg HS ANTONIO Administration Bupropion HCl 150 mg 11/11/17 22:00 11/11/17 22:50 Wellbutrin Xl PO 150 mg HS ANTONIO Administration Carvedilol 3.125 mg 11/11/17 22:00 11/12/17 11:00 Coreg PO 3.125 mg BID-W/MEALS ANTONIO Administration Citalopram Hydrobromide 40 mg 11/12/17 09:00 11/12/17 11:00 Celexa PO 40 mg DAILY ANTONIO Administration Cyclobenzaprine HCl 10 mg 11/11/17 21:57 Flexeril PO BID PRN Muscle Spasm Ibuprofen 600 mg 11/11/17 21:57 11/12/17 12:08 Motrin PO 600 mg Q8HR PRN Administration Pain Levetiracetam 1,000 mg 11/12/17 09:00 11/12/17 11:01 Keppra PO 1,000 mg DAILY ANTONIO Administration Levetiracetam 1,250 mg 11/11/17 22:00 11/11/17 22:50 Keppra PO 1,250 mg HS ANTONIO Administration Levothyroxine Sodium 50 mcg 11/12/17 06:30 11/12/17 11:00 Synthroid PO 50 mcg DAILY@0630 ANTONIO Administration Lorazepam 0.5 mg 11/11/17 21:57 Ativan PO TID PRN Anxiety Meclizine HCl 25 mg 11/11/17 22:00 11/12/17 10:59 Antivert PO 25 mg TID ANTONIO Administration Miscellaneous Information 1 each 11/12/17 09:14 Rx Info: Iv Contrast Was Given MISCELLANE 11/14/17 09:14 DAILY PRN Per Protocol Nitroglycerin 0.4 mg 11/11/17 13:47 Nitrostat SUBLINGUAL Q5M PRN Chest Pain Pantoprazole Sodium 40 mg 11/12/17 07:30 11/12/17 11:00 Protonix PO 40 mg AC-[id number] ANTONIO Administration Potassium Chloride 20 meq 11/11/17 22:00 11/12/17 11:00 K-Dur 20 PO 20 meq BID ANTONIO Administration Zolpidem Tartrate 10 mg 11/11/17 21:57 11/11/17 22:49 Ambien PO 10 mg HS PRN Administration Insomnia Intake and Output 11/11/17 11/12/17 11/12/17 22:59 06:59 14:59 Intake Total 214.056 Balance 214.056 Intake: Intake, IV Titration 214.056 Amount Heparin Sod,Pork in 0.45% 214.056 NaCl 25,000 unit In 0.45 % NaCl 1 500ml.bag @ 11.5 UNITS/KG/HR 19.82 mls/hr IV .Q24H [facility] Rx#: [id number] Other: Voiding Method Toilet Toilet # Voids 1 Weight 86.183 kg 11/11/17 12:30 11/11/17 12:30 Assessment and Plan Assessment: ASSESSMENT Chest pain, atypical. An acute coronary event has been ruled out with no EKG evidence of ischemia and negative cardiac enzymes. Highly unlikely to have obstructive coronary artery disease with recent catheterization 2 years ago. Recent pacemaker insertion for complete AV block Hypertension Dyslipidemia Seizure, most recent seizure PLAN An acute coronary event has been ruled out. Obtain limited echocardiogram to assess for pericardial effusion. Obtain CT of the chest with contrast to assess for pericardial damage and lead placement s/p pacemaker insertion. Thank you kindly for this consultation. The above impression and plan of care have been discussed and directed by the signing physician. Mackenzie Jonas, nurse practitioner, acting as scribe for signing physician.
--- NOTE | 2017-11-12 16:13 | CT ---
EXAMINATION TYPE: CT chest w con DATE OF EXAM: 11/12/2017 COMPARISON: Radiographs 11/11/2017 HISTORY: 67-year-old female Chest discomfort, recent pacemaker implantation TECHNIQUE: Contiguous axial scanning of the chest after the administration of 100 mL of Isovue 300. Coronal/sagittal reconstructions performed. CT DLP: 394mGycm. Automatic exposure control utilized for a dose reduction. FINDINGS: Left anterior chest wall pacemaker generator. There is some soft tissue stranding within the subcutan eous adipose overlying the loop leads likely postoperative changes. Correlation can be made to exclud e cellulitis. There is no abnormal fluid collection at the site of pacemaker generator. The leads div e down penetrating through the superior aspect of the pectoralis major. Right atrial and right ventri cular leads are present. Heart normal size without pericardial effusion. Aorta normal caliber with conventional arterial supply and anatomy. No thoracic lymphadenopathy. There is some strandy atelectasis at the left midlung. No consolidation or pleural effusion. Small hiatal hernia with postsurgical changes of sleeve gastrectomy. Bones: Degenerative disc disease midthoracic spine. IMPRESSION: 1. No acute pulmonary process. 2. Left-sided pacemaker generator with right atrial and right ventricular leads. There is some soft t issue stranding in the overlying subcutaneous fat likely some residual postsurgical inflammation or d eveloping scar. Correlate to exclude cellulitis. 3. The 2 pacemaker leads penetrate through the superior portion of the pectoralis major prior to acce ssing the left subclavian vein.
[2017-11-12 16:55] VITALS: BP 137/67; PULSE 57
== END 2017-11-12 18:11 | disposition home or self-care (01) ==
LOC: EC 11:53 → 3OBS 13:47
PROVIDERS: ADMIT Family Medicine; ATTEND Family Medicine
DX: R07.89 Other chest pain (principal); R06.02 Shortness of breath; R05 Cough; Z95.0 Presence of cardiac pacemaker; M19.90 Unspecified osteoarthritis, unspecified site; K21.9 Gastro-esophageal reflux disease without esophagitis; I10 Essential (primary) hypertension; E78.5 Hyperlipidemia, unspecified; E03.9 Hypothyroidism, unspecified; G40.409 Other generalized epilepsy and epileptic syndromes, not intractable, without status epilepticus; F32.9 Major depressive disorder, single episode, unspecified; Z87.19 Personal history of other diseases of the digestive system; Z90.49 Acquired absence of other specified parts of digestive tract; Z98.84 Bariatric surgery status; Z98.1 Arthrodesis status; F41.9 Anxiety disorder, unspecified; Z80.41 Family history of malignant neoplasm of ovary; Z80.1 Family history of malignant neoplasm of trachea, bronchus and lung; Z82.3 Family history of stroke; Z82.49 Family history of ischemic heart disease and other diseases of the circulatory system; Z79.899 Other long term (current) drug therapy; Z79.890 Hormone replacement therapy; Z79.82 Long term (current) use of aspirin; Z88.1 Allergy status to other antibiotic agents; Z88.5 Allergy status to narcotic agent; Z88.2 Allergy status to sulfonamides; Z88.8 Allergy status to other drugs, medicaments and biological substances; Z91.018 Allergy to other foods; E66.9 Obesity, unspecified; Z68.37 Body mass index [BMI] 37.0-37.9, adult
CPT/HCPCS: 36415; 71046; 71260; 80053; 80061; 82550; 82553; 83735; 84484; 85025; 85610; 85730; 93005; 93308; 96365; 96366; 96376; 99291

== ENCOUNTER → 2017-12-05 | Outpatient (CLI) | payer MEDICARE | END | disposition home or self-care (01) | LOC: LABWHC1 12:42 | PROVIDERS: ATTEND Psychiatry & Neurology Neurology | DX: G43.909 Migraine, unspecified, not intractable, without status migrainosus (principal); Z79.899 Other long term (current) drug therapy | CPT/HCPCS: 36415; 80177 ==

== ENCOUNTER 2017-12-11 11:44 | Emergency (ER) | payer MEDICARE ==
[2017-12-11 12:07] VITALS: RESP 18
[2017-12-11] MEDS ORDERED: DIAZEPAM 5 MG/ML 2 ML INJ IVP STA (12:28)
--- NOTE | 2017-12-11 12:31 | ED ---
General Adult HPI - General Chief complaint: Dizziness Stated complaint: HEAD INJURY, FROM DIZZINESS Time Seen by Provider: 12/11/17 12:00 Source: patient, family, RN notes reviewed Mode of arrival: wheelchair Limitations: no limitations - History of Present Illness Initial comments: This is a 67-year-old female who presents emergency room complaining of dizziness this morning. Patient states when she goes to walk she's stumbling. Patient states she's had vertigo for many years and Antivert does not help her. Patient also states shutting her eyes does seem to make it considerably better. Patient states he has a headache on the right side of her head which she gets headaches on a regular basis. Patient denies any chest pain palpitations difficulty breathing or shortness of breath. Patient denies abdominal pain patient denies nausea vomiting diarrhea. Patient denies any recent fever chills or cough. Patient denies any injury today but did fall yesterday and hit her head but did not fall to the ground just fell forward into a cabinet. Patient did not get seen for this injury. Patient has no neck pain. - Related Data Home Medications Medication Instructions Recorded Confirmed Atorvastatin [Lipitor] 10 mg PO HS 09/21/13 12/11/17 Cyclobenzaprine [Flexeril] 10 mg PO BID PRN 09/21/13 12/11/17 LORazepam [Lorazepam] 0.5 mg PO TID PRN 09/21/13 12/11/17 Citalopram Hydrobromide [CeleXA] 40 mg PO DAILY 08/29/17 12/11/17 Fycompa 4 Mg 4 mg PO HS 09/25/17 12/11/17 Ibuprofen [Motrin] 600 mg PO Q8HR PRN 09/25/17 12/11/17 Carvedilol [Coreg] 3.125 mg PO BID 11/11/17 12/11/17 Levothyroxine Sodium [Synthroid] 50 mcg PO DAILY 11/11/17 12/11/17 Meclizine [Antivert] 25 mg PO TID 11/11/17 12/11/17 Omeprazole 20 mg PO BID 11/11/17 12/11/17 Potassium Chloride ER [K-Dur 20] 20 meq PO DAILY 11/11/17 12/11/17 Zolpidem [Ambien] 10 mg PO HS PRN 11/11/17 12/11/17 buPROPion XL [Wellbutrin Xl] 150 mg PO HS 11/11/17 12/11/17 levETIRAcetam [Keppra] 1,000 mg PO HS 12/11/17 12/11/17 levETIRAcetam [Keppra] 250 mg PO QAM 12/11/17 12/11/17 Allergies Allergy/AdvReac Type Severity Reaction Status Date / Time ciprofloxacin [From Cipro] Allergy Unknown Verified 12/11/17 12:54 ciprofloxacin HCl Allergy Unknown Verified 12/11/17 12:54 [From Cipro] hydromorphone [From Dilaudid] Allergy Rash/Hives Verified 12/11/17 12:54 soy Allergy Anaphylaxis Verified 12/11/17 12:54 tetracycline [Tetracycline] Allergy Rash/Hives Verified 12/11/17 12:54 tioconazole [From Monistat 1] Allergy Rash/Hives Verified 12/11/17 12:54 codeine AdvReac Rash/Hives Verified 12/11/17 12:54 hydrocodone bitartrate AdvReac Rash/Hives Verified 12/11/17 12:54 [From Lortab] meperidine HCl [From Demerol] AdvReac Rash/Hives Verified 12/11/17 12:54 morphine AdvReac Rash/Hives Verified 12/11/17 12:54 propoxyphene napsylate AdvReac Rash/Hives Verified 12/11/17 12:54 [From Darvocet-N 100] Sulfa (Sulfonamide AdvReac Rash/Hives Verified 12/11/17 12:54 Antibiotics) Review of Systems ROS Statement: Those systems with pertinent positive or pertinent negative responses have been documented in the HPI. ROS Other: All systems not noted in ROS Statement are negative. Past Medical History Past Medical History: GERD/Reflux, GI Bleed, Hyperlipidemia, Hypertension, Osteoarthritis (OA), Seizure Disorder, Thyroid Disorder Additional Past Medical History / Comment(s): last seizure two days ago, history of depression History of Any Multi-Drug Resistant Organisms: None Reported Past Surgical History: Back Surgery, Cholecystectomy, Heart Catheterization, Hernia Repair, Joint Replacement, Pacemaker, Tonsillectomy Additional Past Surgical History / Comment(s): LAP BAND INSERTED & REMOVED, GASTRIC SLEEVE (2016), GINI TOTAL KNEES, CERVICAL FUSION (2-7), BOWEL RESECTION. , INCISIONAL HERNIA'S. STATES SEVERAL HEART CATHS-NO STENTS (DONE AT [facility] & [facility]) Past Anesthesia/Blood Transfusion Reactions: No Reported Reaction Type of Cardiac Device: Permanent Pacemaker Device Placement Date:: 10/12/17 Past Psychological History: Anxiety, Depression Smoking Status: Never smoker Past Alcohol Use History: None Reported Past Drug Use History: None Reported - Past Family History Mother Family Medical History: Pulmonary Embolus Additional Family Medical History / Comment(s): Multiple TIA's. Father Family Medical History: Cancer Additional Family Medical History / Comment(s): Lung Sister(s) Family Medical History: Cancer Additional Family Medical History / Comment(s): OVARIAN CANCER General Exam - General Exam Comments Initial Comments: GENERAL: Patient is well-developed and well-nourished. Patient is nontoxic and well- hydrated and is in mild distress. ENT: Neck is soft and supple. No significant lymphadenopathy is noted. Oropharynx is clear. Moist mucous membranes. Neck has full range of motion without eliciting any pain. EYES: The sclera were anicteric and conjunctiva were pink and moist. Extraocular movements were intact and pupils were equal round and reactive to light. Eyelids were unremarkable. PULMONARY: Unlabored respirations. Good breath sounds bilaterally. No audible rales rhonchi or wheezing was noted. CARDIOVASCULAR: There is a regular rate and rhythm without any murmurs gallops or rubs. ABDOMEN: Soft and nontender with normal bowel sounds. No palpable organomegaly was noted. There is no palpable pulsatile mass. SKIN: Skin is clear with no lesions or rashes and otherwise unremarkable. NEUROLOGIC: Patient is alert and oriented x3. Cranial nerves II through XII are grossly intact. Motor and sensory are also intact. Normal speech, volume and content. Symmetrical smile. Cerebellar exam grossly intact. MUSCULOSKELETAL: Normal extremities with adequate strength and full range of motion. LYMPHATICS: No significant lymphadenopathy is noted PSYCHIATRIC: Normal psychiatric evaluation. Normal interpersonal interactions appears functionally intact in deals appropriately with others. No signs of depression. No signs of anxiety. Limitations: no limitations Course Vital Signs 12/11/17 12/11/17 12/11/17 12:04 12:39 14:15 Temperature 97.9 F Pulse Rate 67 66 63 Respiratory 18 18 18 Rate Blood Pressure 134/76 143/66 125/66 O2 Sat by Pulse 94 L 96 98 Oximetry Medical Decision Making - Medical Decision Making EKG shows normal sinus rhythm at 61 bpm KS interval 178 QRSs 86 QT interval 432 QTC is 434. Patient's EKG is not showing any ST segment elevation or depression CT of the brain shows no acute abnormality. Chest x-ray shows no acute abnormality. Patient's and dilated around the ER without problem patient states she had no vertigo-like symptoms at this time. Patient was willing to go home and follow- up with her primary medical care doctor. - Lab Data Result diagrams: 12/11/17 12:24 12/11/17 12:24 Lab Results 12/11/17 12/11/17 12/11/17 Range/Units 12:24 12:24 12:24 WBC 6.3 (3.8-10.6) k/uL RBC 5.24 (3.80-5.40) m/uL Hgb 12.3 (11.4-16.0) gm/dL Hct 41.3 (34.0-46.0) % MCV 78.9 L (80.0-100.0) fL MCH 23.6 L (25.0-35.0) pg MCHC 29.9 L (31.0-37.0) g/dL RDW 14.7 (11.5-15.5) % Plt Count 324 (150-450) k/uL Neutrophils % 54 % Lymphocytes % 31 % Monocytes % 7 % Eosinophils % 5 % Basophils % 1 % Neutrophils # 3.4 (1.3-7.7) k/uL Lymphocytes # 2.0 (1.0-4.8) k/uL Monocytes # 0.4 (0-1.0) k/uL Eosinophils # 0.3 (0-0.7) k/uL Basophils # 0.1 (0-0.2) k/uL Hypochromasia Moderate PT (9.0-12.0) sec INR (<1.2) APTT (22.0-30.0) sec Sodium 140 (137-145) mmol/L Potassium 4.4 (3.5-5.1) mmol/L Chloride 109 H (98-107) mmol/L Carbon Dioxide 26 (22-30) mmol/L Anion Gap 5 mmol/L BUN 8 (7-17) mg/dL Creatinine 0.79 (0.52-1.04) mg/dL Est GFR (CKD-EPI)AfAm 90 (>60 ml/min/1.73 sqM) Est GFR (CKD-EPI)NonAf 78 (>60 ml/min/1.73 sqM) Glucose 102 H (74-99) mg/dL Calcium 9.1 (8.4-10.2) mg/dL Magnesium 2.3 (1.6-2.3) mg/dL Total Bilirubin 0.6 (0.2-1.3) mg/dL AST 21 (14-36) U/L ALT 25 (9-52) U/L Alkaline Phosphatase 107 (38-126) U/L Total Creatine Kinase 34 (30-135) U/L CK-MB (CK-2) 0.3 (0.0-2.4) ng/mL CK-MB (CK-2) Rel Index 0.9 Troponin I <0.012 (0.000-0.034) ng/mL Total Protein 7.0 (6.3-8.2) g/dL Albumin 4.0 (3.5-5.0) g/dL 12/11/17 Range/Units 12:24 WBC (3.8-10.6) k/uL RBC (3.80-5.40) m/uL Hgb (11.4-16.0) gm/dL Hct (34.0-46.0) % MCV (80.0-100.0) fL MCH (25.0-35.0) pg MCHC (31.0-37.0) g/dL RDW (11.5-15.5) % Plt Count (150-450) k/uL Neutrophils % % Lymphocytes % % Monocytes % % Eosinophils % % Basophils % % Neutrophils # (1.3-7.7) k/uL Lymphocytes # (1.0-4.8) k/uL Monocytes # (0-1.0) k/uL Eosinophils # (0-0.7) k/uL Basophils # (0-0.2) k/uL Hypochromasia PT 9.5 (9.0-12.0) sec INR 1.0 (<1.2) APTT 23.5 (22.0-30.0) sec Sodium (137-145) mmol/L Potassium (3.5-5.1) mmol/L Chloride (98-107) mmol/L Carbon Dioxide (22-30) mmol/L Anion Gap mmol/L BUN (7-17) mg/dL Creatinine (0.52-1.04) mg/dL Est GFR (CKD-EPI)AfAm (>60 ml/min/1.73 sqM) Est GFR (CKD-EPI)NonAf (>60 ml/min/1.73 sqM) Glucose (74-99) mg/dL Calcium (8.4-10.2) mg/dL Magnesium (1.6-2.3) mg/dL Total Bilirubin (0.2-1.3) mg/dL AST (14-36) U/L ALT (9-52) U/L Alkaline Phosphatase (38-126) U/L Total Creatine Kinase (30-135) U/L CK-MB (CK-2) (0.0-2.4) ng/mL CK-MB (CK-2) Rel Index Troponin I (0.000-0.034) ng/mL Total Protein (6.3-8.2) g/dL Albumin (3.5-5.0) g/dL Disposition Clinical Impression: Vertigo Disposition: HOME SELF-CARE Condition: Good Instructions: Vertigo (ED) Is patient prescribed a controlled substance at d/c from ED?: No Referrals: Cade Menendez DO [Primary Care Provider] - 1-2 days Time of Disposition: 14:45
[2017-12-11 12:49] LABS: Basophils # (A) 0.1 k/uL (0-0.2); Basophils % (A) 1 %; Eosinophils # (A) 0.3 k/uL (0-0.7); Eosinophils % (A) 5 %; HCT 41.3 % (34.0-46.0); HGB 12.3 gm/dL (11.4-16.0); Hypochromasia Moderate; Lymphocytes % (A) 31 %; MCH 23.6 pg (25.0-35.0); MCHC 29.9 g/dL (31.0-37.0); MCV 78.9 fL (80.0-100.0); Mean Platelet Volume 6.8; Monocytes # (A) 0.4 k/uL (0-1.0); Monocytes % (A) 7 %; Neutrophils # (A) 3.4 k/uL (1.3-7.7); Neutrophils % (A) 54 %; Platelet Count 324 k/uL (150-450); RBC 5.24 m/uL (3.80-5.40); RDW 14.7 % (11.5-15.5); WBC 6.3 k/uL (3.8-10.6)
[2017-12-11 12:51] LABS: Partial Thromboplastin Time 23.5 sec (22.0-30.0); Prothrombin Time 9.5 sec (9.0-12.0)
[2017-12-11 12:54] LABS: Calcium 9.1 mg/dL (8.4-10.2); Magnesium 2.3 mg/dL (1.6-2.3); Potassium 4.4 mmol/L (3.5-5.1); Total Bilirubin 0.6 mg/dL (0.2-1.3)
[2017-12-11 13:04] LABS: Creatine Kinase 34 U/L (30-135)
[2017-12-11 13:15] LABS: Creatine Kinase MB 0.3 ng/mL (0.0-2.4); Troponin I <0.012 ng/mL (0.000-0.034)
--- NOTE | 2017-12-11 13:15 | CT ---
EXAMINATION TYPE: CT brain wo con DATE OF EXAM: 12/11/2017 COMPARISON: 10/25/2017 INDICATION: Head injury, dizziness DLP: 1017.90 mGycm, Automated exposure control for dose reduction was used. CONTRAST: None CT of the brain is performed utilizing 3 mm thick sections through the posterior fossa and 3 mm thick sections through the remaining calvarium. Study is performed within 24 hours of arrival to the hosp [facility]. No abnormal hyperdensity is present to suggest an acute intracranial hemorrhage. No mass lesion is evident. No acute infarcts are evident. Ventricles and sulci are appropriate for the patient age. There is fluid within the right sphenoid sinus. Correlate for sphenoid sinusitis. This is stable from October 2017 Remaining paranasal sinuses and mastoid air cells are clear. IMPRESSIONS: 1. No acute intracranial abnormality. 2. Right sphenoid sinusitis present previously
--- NOTE | 2017-12-11 13:21 | XR ---
EXAMINATION TYPE: XR chest 2V DATE OF EXAM: 12/11/2017 COMPARISON: Prior chest x-ray 11/11/2017, chest CT 11/12/2017 HISTORY: Chest pain TECHNIQUE: Frontal and lateral views of the chest are obtained. FINDINGS: There is no focal air space opacity, pleural effusion, or pneumothorax seen. The cardiac silhouette size is stable. The osseous structures are intact. There is a generator over the left ch est, leads are present in the right atrium and ventricle as on prior, postop change noted to the cerv ical spine. Patient is again rotated, there may be spinal curvature. There are prominent lung volumes . Postop changes present at the gastroesophageal junction level. Suspect small hiatal hernia. IMPRESSION: No acute cardiopulmonary process.
[2017-12-11 15:03] VITALS: BP 152/87; PULSE 58; TEMP 97
== END 2017-12-11 15:03 | disposition home or self-care (01) ==
LOC: EC 11:44
DX: R42 Dizziness and giddiness (principal); R51 Headache; K21.9 Gastro-esophageal reflux disease without esophagitis; E78.5 Hyperlipidemia, unspecified; I10 Essential (primary) hypertension; G40.909 Epilepsy, unspecified, not intractable, without status epilepticus; E07.9 Disorder of thyroid, unspecified; F32.9 Major depressive disorder, single episode, unspecified; F41.9 Anxiety disorder, unspecified; Z79.899 Other long term (current) drug therapy; Z88.1 Allergy status to other antibiotic agents; Z91.018 Allergy to other foods; Z88.2 Allergy status to sulfonamides; Z88.5 Allergy status to narcotic agent; Z88.8 Allergy status to other drugs, medicaments and biological substances
CPT/HCPCS: 36415; 93005; 80053; 82550; 82553; 83735; 84484; 85025; 85610; 85730; 71046; 70450; 99284; 96374; J3360

== ENCOUNTER 2017-12-11 22:37 | Emergency (ER) | payer MEDICARE ==
[2017-12-11 23:13] VITALS: PULSE 69
--- NOTE | 2017-12-12 00:10 | ED ---
General Adult HPI - General Chief complaint: Head Injury Stated complaint: Fall,hit head Time Seen by Provider: 12/11/17 23:41 Source: patient, family Mode of arrival: wheelchair Limitations: no limitations - History of Present Illness Initial comments: Emily is a 67-year-old female with extensive medical history who presents to our emergency department today via private vehicle for evaluation of a possible head injury. The patient has a history of chronic vertigo and frequent falls, she was evaluated in our hospital earlier today and discharged home. Patient reports that she was at home, she was sitting in her chair and she noticed that her dog had left a biscuit on the floor. She leaned forward from her chair to retrieve the biscuit and reports that she fell forward. She doesn' t believe that she lost consciousness. Her sister witnessed the fall and woke her up. Her sister then decided that they should come to the ER for evaluation. The patient has no obvious head injury. She denies any headache, vision change, neck pain, numbness and tingling in the extremities, she has been ambulatory since the fall, she has no memory loss or repetitive questioning. - Related Data Home Medications Medication Instructions Recorded Confirmed Atorvastatin [Lipitor] 10 mg PO HS 09/21/13 12/11/17 Cyclobenzaprine [Flexeril] 10 mg PO BID PRN 09/21/13 12/11/17 LORazepam [Lorazepam] 0.5 mg PO TID PRN 09/21/13 12/11/17 Citalopram Hydrobromide [CeleXA] 40 mg PO DAILY 08/29/17 12/11/17 Fycompa 4 Mg 4 mg PO HS 09/25/17 12/11/17 Ibuprofen [Motrin] 600 mg PO Q8HR PRN 09/25/17 12/11/17 Carvedilol [Coreg] 3.125 mg PO BID 11/11/17 12/11/17 Levothyroxine Sodium [Synthroid] 50 mcg PO DAILY 11/11/17 12/11/17 Meclizine [Antivert] 25 mg PO TID 11/11/17 12/11/17 Omeprazole 20 mg PO BID 11/11/17 12/11/17 Potassium Chloride ER [K-Dur 20] 20 meq PO DAILY 11/11/17 12/11/17 Zolpidem [Ambien] 10 mg PO HS PRN 11/11/17 12/11/17 buPROPion XL [Wellbutrin Xl] 150 mg PO HS 11/11/17 12/11/17 levETIRAcetam [Keppra] 1,000 mg PO HS 12/11/17 12/11/17 levETIRAcetam [Keppra] 250 mg PO QAM 12/11/17 12/11/17 Allergies Allergy/AdvReac Type Severity Reaction Status Date / Time ciprofloxacin [From Cipro] Allergy Unknown Verified 12/11/17 23:13 ciprofloxacin HCl Allergy Unknown Verified 12/11/17 23:13 [From Cipro] hydromorphone [From Dilaudid] Allergy Rash/Hives Verified 12/11/17 23:13 soy Allergy Anaphylaxis Verified 12/11/17 23:13 tetracycline [Tetracycline] Allergy Rash/Hives Verified 12/11/17 23:13 tioconazole [From Monistat 1] Allergy Rash/Hives Verified 12/11/17 23:13 codeine AdvReac Rash/Hives Verified 12/11/17 23:13 hydrocodone bitartrate AdvReac Rash/Hives Verified 12/11/17 23:13 [From Lortab] meperidine HCl [From Demerol] AdvReac Rash/Hives Verified 12/11/17 23:13 morphine AdvReac Rash/Hives Verified 12/11/17 23:13 propoxyphene napsylate AdvReac Rash/Hives Verified 12/11/17 23:13 [From Darvocet-N 100] Sulfa (Sulfonamide AdvReac Rash/Hives Verified 12/11/17 23:13 Antibiotics) Review of Systems ROS Statement: Those systems with pertinent positive or pertinent negative responses have been documented in the HPI. ROS Other: All systems not noted in ROS Statement are negative. Past Medical History Past Medical History: GERD/Reflux, GI Bleed, Hyperlipidemia, Hypertension, Osteoarthritis (OA), Seizure Disorder, Thyroid Disorder Additional Past Medical History / Comment(s): last seizure two days ago, history of depression History of Any Multi-Drug Resistant Organisms: None Reported Past Surgical History: Back Surgery, Cholecystectomy, Heart Catheterization, Hernia Repair, Joint Replacement, Pacemaker, Tonsillectomy Additional Past Surgical History / Comment(s): LAP BAND INSERTED & REMOVED, GASTRIC SLEEVE (2015), GINI TOTAL KNEES, CERVICAL FUSION (2-7), BOWEL RESECTION. , INCISIONAL HERNIA'S. STATES SEVERAL HEART CATHS-NO STENTS (DONE AT [facility] & [facility]) Past Anesthesia/Blood Transfusion Reactions: No Reported Reaction Type of Cardiac Device: Permanent Pacemaker Device Placement Date:: 10/12/17 Past Psychological History: Anxiety, Depression Smoking Status: Never smoker Past Alcohol Use History: None Reported Past Drug Use History: None Reported - Past Family History Mother Family Medical History: Pulmonary Embolus Additional Family Medical History / Comment(s): Multiple TIA's. Father Family Medical History: Cancer Additional Family Medical History / Comment(s): Lung Sister(s) Family Medical History: Cancer Additional Family Medical History / Comment(s): OVARIAN CANCER General Exam Limitations: no limitations General appearance: alert, in no apparent distress Head exam: Present: atraumatic, normocephalic Eye exam: Present: normal appearance, PERRL, EOMI ENT exam: Present: normal exam, normal oropharynx, TM's normal bilaterally Neck exam: Present: normal inspection, full ROM. Absent: tenderness Respiratory exam: Present: normal lung sounds bilaterally. Absent: respiratory distress Cardiovascular Exam: Present: regular rate GI/Abdominal exam: Present: soft. Absent: distended Rectal exam: Present: deferred Extremities exam: Present: full ROM, normal capillary refill Back exam: Present: full ROM. Absent: paraspinal tenderness, vertebral tenderness Neurological exam: Present: alert, oriented X3 Psychiatric exam: Present: normal mood Skin exam: Present: warm, dry, intact Course Vital Signs 12/11/17 12/12/17 23:10 00:16 Temperature 97.7 F 97.8 F Pulse Rate 69 69 Respiratory 18 19 Rate Blood Pressure 136/84 134/79 O2 Sat by Pulse 95 97 Oximetry Medical Decision Making - Medical Decision Making The patient was seen and evaluated, history is obtained from the patient Patient with a fall from leaning over in her chair to the ground, struck her head, doesn't believe she lost consciousness No obvious head injuries, not on any antiplatelet or anticoagulant medication Patient has full range of motion of her cervical spine, no midline cervical spine tenderness, no focal neurologic deficits, no evidence of intoxication no distracting injuries, at this time I have no suspicion of a cervical spine injury I discussed with the patient at this time I don't feel there is indication for computed tomography scan of the head and that I would like to reduce the amount of radiation she is exposed. Patient is very agreeable with this. She states her sister wanted her checked out and she is comfortable being discharged home at this time. All questions pertaining care were answered the best my ability patient was discharged home in stable condition with return parameters discussed. Disposition Clinical Impression: Fall at home Disposition: HOME SELF-CARE Condition: Good Instructions: Concussion (ED), Fall Prevention for Older Adults (ED), Post Concussion Syndrome (ED) Is patient prescribed a controlled substance at d/c from ED?: No Referrals: Cade Menendez DO [Primary Care Provider] - 1-2 days Time of Disposition: 00:09
[2017-12-12 00:18] VITALS: BP 134/79; RESP 19; TEMP 97.8
== END 2017-12-12 00:17 | disposition home or self-care (01) ==
LOC: EC 22:37
DX: S09.90XA Unspecified injury of head, initial encounter (principal); R29.6 Repeated falls; K21.9 Gastro-esophageal reflux disease without esophagitis; E78.5 Hyperlipidemia, unspecified; I10 Essential (primary) hypertension; G40.909 Epilepsy, unspecified, not intractable, without status epilepticus; E07.9 Disorder of thyroid, unspecified; F41.9 Anxiety disorder, unspecified; F32.9 Major depressive disorder, single episode, unspecified; Z95.818 Presence of other cardiac implants and grafts; Z95.0 Presence of cardiac pacemaker; Z96.653 Presence of artificial knee joint, bilateral; Z79.899 Other long term (current) drug therapy; Z88.1 Allergy status to other antibiotic agents; Z88.5 Allergy status to narcotic agent; Z91.018 Allergy to other foods; Z88.2 Allergy status to sulfonamides; W07.XXXA Fall from chair, initial encounter; Y92.009 Unspecified place in unspecified non-institutional (private) residence as the place of occurrence of the external cause
CPT/HCPCS: 99283

== ENCOUNTER 2017-12-24 12:18 | Emergency (ER) | payer MEDICARE ==
[2017-12-24 12:29] VITALS: RESP 18
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
--- NOTE | 2017-12-24 13:36 | XR ---
EXAMINATION TYPE: XR chest 2V DATE OF EXAM: 12/24/2017 COMPARISON: 11/11/2017 INDICATION: Pain TECHNIQUE: Frontal and lateral views of the chest are obtained. FINDINGS: The heart size is normal. The pulmonary vasculature is normal. The lungs are clear. No pneumothorax is evident. No displaced rib fractures are identified. IMPRESSION: 1. No acute pulmonary process.
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
[2017-12-24 15:22] VITALS: BP 134/68; PULSE 60; TEMP 97.1
== END 2017-12-24 15:21 | disposition home or self-care (01) ==
LOC: EC 12:18
DX: M54.2 Cervicalgia (principal); R40.2412 Glasgow coma scale score 13-15, at arrival to emergency department; R05 Cough; E78.5 Hyperlipidemia, unspecified; I10 Essential (primary) hypertension; G40.909 Epilepsy, unspecified, not intractable, without status epilepticus; E07.9 Disorder of thyroid, unspecified; K21.9 Gastro-esophageal reflux disease without esophagitis; F32.9 Major depressive disorder, single episode, unspecified; F41.9 Anxiety disorder, unspecified; Z88.1 Allergy status to other antibiotic agents; Z88.2 Allergy status to sulfonamides; Z88.5 Allergy status to narcotic agent; Z88.8 Allergy status to other drugs, medicaments and biological substances; Z91.018 Allergy to other foods; Z79.899 Other long term (current) drug therapy; Z98.1 Arthrodesis status; Y04.0XXA Assault by unarmed brawl or fight, initial encounter; Y92.009 Unspecified place in unspecified non-institutional (private) residence as the place of occurrence of the external cause
CPT/HCPCS: 70450; 71046; 72125; 99284

== ENCOUNTER 2017-12-27 18:45 | Emergency (ER) | payer MEDICARE ==
[2017-12-27] MEDS ORDERED: levETIRAcetam IV 500 MG in SODIUM CHLORIDE 0.9% 100 ML IVPB STA (19:40)
[2017-12-27] MEDS ORDERED: SODIUM CHLORIDE 0.9% 1,000 ML IV STA (19:40)
[2017-12-27 19:48] LABS: Basophils # (A) 0.1 k/uL (0-0.2); Basophils % (A) 1 %; Eosinophils # (A) 0.3 k/uL (0-0.7); Eosinophils % (A) 5 %; HCT 39.5 % (34.0-46.0); HGB 12.3 gm/dL (11.4-16.0); Hypochromasia Slight; Lymphocytes # (A) 2.8 k/uL (1.0-4.8); Lymphocytes % (A) 46 %; MCH 24.4 pg (25.0-35.0); MCHC 31.1 g/dL (31.0-37.0); MCV 78.5 fL (80.0-100.0); Monocytes # (A) 0.4 k/uL (0-1.0); Monocytes % (A) 7 %; Neutrophils # (A) 2.3 k/uL (1.3-7.7); Neutrophils % (A) 37 %; Platelet Count 295 k/uL (150-450); RBC 5.04 m/uL (3.80-5.40); RDW 15.1 % (11.5-15.5); WBC 6.2 k/uL (3.8-10.6)
--- NOTE | 2017-12-27 19:56 | ED ---
General Adult HPI - General Chief complaint: Chest Pain Stated complaint: seizure, chest pain Time Seen by Provider: 12/27/17 19:10 Source: patient, RN notes reviewed, old records reviewed Mode of arrival: ambulatory Limitations: no limitations - History of Present Illness Initial comments: This is a 59-year-old female the ER for evaluation. Patient was essay for evaluation of chest pain. Patient states she has underlying history of chest pain. History of seizures or significant surgical history and heart history including pacemaker. Patient has chest discomfort and pressure and heaviness left-sided chest. Vital hour prior to arrival. Family states patient was acting quite herself today. Patient also had a few seizures prior to arrival, 3 seizures which she does have history of. She isn't taking all medications as directed. Patient also admits to increased stress at home and increased stress with family - Related Data Home Medications Medication Instructions Recorded Confirmed Atorvastatin [Lipitor] 10 mg PO HS 09/21/13 12/11/17 Cyclobenzaprine [Flexeril] 10 mg PO BID PRN 09/21/13 12/11/17 LORazepam [Lorazepam] 0.5 mg PO TID PRN 09/21/13 12/11/17 Citalopram Hydrobromide [CeleXA] 40 mg PO DAILY 08/29/17 12/11/17 Fycompa 4 Mg 4 mg PO HS 09/25/17 12/11/17 Ibuprofen [Motrin] 600 mg PO Q8HR PRN 09/25/17 12/11/17 Carvedilol [Coreg] 3.125 mg PO BID 11/11/17 12/11/17 Levothyroxine Sodium [Synthroid] 50 mcg PO DAILY 11/11/17 12/11/17 Meclizine [Antivert] 25 mg PO TID 11/11/17 12/11/17 Omeprazole 20 mg PO BID 11/11/17 12/11/17 Potassium Chloride ER [K-Dur 20] 20 meq PO DAILY 11/11/17 12/11/17 Zolpidem [Ambien] 10 mg PO HS PRN 11/11/17 12/11/17 buPROPion XL [Wellbutrin Xl] 150 mg PO HS 11/11/17 12/11/17 levETIRAcetam [Keppra] 1,000 mg PO HS 12/11/17 12/11/17 levETIRAcetam [Keppra] 250 mg PO QAM 12/11/17 12/11/17 Allergies Allergy/AdvReac Type Severity Reaction Status Date / Time ciprofloxacin [From Cipro] Allergy Unknown Verified 12/27/17 18:49 ciprofloxacin HCl Allergy Unknown Verified 12/27/17 18:49 [From Cipro] hydromorphone [From Dilaudid] Allergy Rash/Hives Verified 12/27/17 18:49 soy Allergy Anaphylaxis Verified 12/27/17 18:49 tetracycline [Tetracycline] Allergy Rash/Hives Verified 12/27/17 18:49 tioconazole [From Monistat 1] Allergy Rash/Hives Verified 12/27/17 18:49 codeine AdvReac Rash/Hives Verified 12/27/17 18:49 hydrocodone bitartrate AdvReac Rash/Hives Verified 12/27/17 18:49 [From Lortab] meperidine HCl [From Demerol] AdvReac Rash/Hives Verified 12/27/17 18:49 morphine AdvReac Rash/Hives Verified 12/27/17 18:49 propoxyphene napsylate AdvReac Rash/Hives Verified 12/27/17 18:49 [From Darvocet-N 100] Sulfa (Sulfonamide AdvReac Rash/Hives Verified 12/27/17 18:49 Antibiotics) Review of Systems ROS Statement: Those systems with pertinent positive or pertinent negative responses have been documented in the HPI. ROS Other: All systems not noted in ROS Statement are negative. Past Medical History Past Medical History: GERD/Reflux, GI Bleed, Hyperlipidemia, Hypertension, Osteoarthritis (OA), Seizure Disorder, Thyroid Disorder Additional Past Medical History / Comment(s): history of depression History of Any Multi-Drug Resistant Organisms: None Reported Past Surgical History: Back Surgery, Cholecystectomy, Heart Catheterization, Hernia Repair, Joint Replacement, Pacemaker, Tonsillectomy Additional Past Surgical History / Comment(s): LAP BAND INSERTED & REMOVED, GASTRIC SLEEVE (2016), GINI TOTAL KNEES, CERVICAL FUSION (2-7), BOWEL RESECTION. , INCISIONAL HERNIA'S. STATES SEVERAL HEART CATHS-NO STENTS (DONE AT [facility] & [facility]) Past Anesthesia/Blood Transfusion Reactions: No Reported Reaction Type of Cardiac Device: Permanent Pacemaker Device Placement Date:: 10/12/17 Past Psychological History: Anxiety, Depression Smoking Status: Never smoker Past Alcohol Use History: None Reported Past Drug Use History: None Reported - Past Family History Mother Family Medical History: Pulmonary Embolus Additional Family Medical History / Comment(s): Multiple TIA's. Father Family Medical History: Cancer Additional Family Medical History / Comment(s): Lung Sister(s) Family Medical History: Cancer Additional Family Medical History / Comment(s): OVARIAN CANCER General Exam Limitations: no limitations General appearance: alert, in no apparent distress Head exam: Present: atraumatic, normocephalic, normal inspection Eye exam: Present: normal appearance, PERRL, EOMI. Absent: scleral icterus, conjunctival injection, periorbital swelling ENT exam: Present: normal exam, mucous membranes moist Neck exam: Present: normal inspection. Absent: tenderness, meningismus, lymphadenopathy Respiratory exam: Present: normal lung sounds bilaterally. Absent: respiratory distress, wheezes, rales, rhonchi, stridor Cardiovascular Exam: Present: regular rate, normal rhythm, normal heart sounds. Absent: systolic murmur, diastolic murmur, rubs, gallop, clicks GI/Abdominal exam: Present: soft, normal bowel sounds. Absent: distended, tenderness, guarding, rebound, rigid Extremities exam: Present: normal inspection, full ROM, normal capillary refill. Absent: tenderness, pedal edema, joint swelling, calf tenderness Back exam: Present: normal inspection Neurological exam: Present: alert, oriented X3, CN II-XII intact Psychiatric exam: Present: normal affect, normal mood Skin exam: Present: warm, dry, intact, normal color. Absent: rash Course Vital Signs 12/27/17 12/27/17 12/27/17 18:48 18:55 19:11 Temperature 97.7 F Pulse Rate 99 Pulse Rate [ 58 L Magnetic Resonance Imaging Coordinator ] Respiratory 18 22 Rate Blood Pressure 143/93 150/77 O2 Sat by Pulse 98 97 Oximetry 12/27/17 12/27/17 20:11 21:25 Temperature 97.8 F 97.9 F Pulse Rate 58 L 60 Pulse Rate [ Magnetic Resonance Imaging Coordinator ] Respiratory 16 16 Rate Blood Pressure 148/84 148/80 O2 Sat by Pulse 95 98 Oximetry - Reevaluation(s) Reevaluation #1: Patient is without seizure-like activity here in the ER, currently denying any chest pain EKG Findings - EKG Comments: EKG Findings:: EKG shows sinus bradycardia rate 56, CA 192, QRS 82, QTc 440 Medical Decision Making - Medical Decision Making 59 female the ER for evaluation of chest pain and seizure-like activity. Chest pain nonspecific, patient does admit to increased stress and family stress lately. Patient family states patient is currently at baseline, acting appropriately and patient can be discharged home - Lab Data Result diagrams: 12/27/17 19:00 12/27/17 19:00 Lab Results 12/27/17 12/27/17 12/27/17 Range/Units 19:00 19:00 19:00 WBC 6.2 (3.8-10.6) k/uL RBC 5.04 (3.80-5.40) m/uL Hgb 12.3 (11.4-16.0) gm/dL Hct 39.5 (34.0-46.0) % MCV 78.5 L (80.0-100.0) fL MCH 24.4 L (25.0-35.0) pg MCHC 31.1 (31.0-37.0) g/dL RDW 15.1 (11.5-15.5) % Plt Count 295 (150-450) k/uL Neutrophils % 37 % Lymphocytes % 46 % Monocytes % 7 % Eosinophils % 5 % Basophils % 1 % Neutrophils # 2.3 (1.3-7.7) k/uL Lymphocytes # 2.8 (1.0-4.8) k/uL Monocytes # 0.4 (0-1.0) k/uL Eosinophils # 0.3 (0-0.7) k/uL Basophils # 0.1 (0-0.2) k/uL Hypochromasia Slight PT (9.0-12.0) sec INR (<1.2) APTT (22.0-30.0) sec Sodium 140 (137-145) mmol/L Potassium 4.5 (3.5-5.1) mmol/L Chloride 108 H (98-107) mmol/L Carbon Dioxide 25 (22-30) mmol/L Anion Gap 7 mmol/L BUN 11 (7-17) mg/dL Creatinine 0.69 (0.52-1.04) mg/dL Est GFR (CKD-EPI)AfAm >90 (>60 ml/min/1.73 sqM) Est GFR (CKD-EPI)NonAf 90 (>60 ml/min/1.73 sqM) Glucose 104 H (74-99) mg/dL Calcium 9.1 (8.4-10.2) mg/dL Magnesium 2.4 H (1.6-2.3) mg/dL Total Bilirubin 0.6 (0.2-1.3) mg/dL AST 24 (14-36) U/L ALT 26 (9-52) U/L Alkaline Phosphatase 112 (38-126) U/L Total Creatine Kinase 46 (30-135) U/L CK-MB (CK-2) 0.5 (0.0-2.4) ng/mL CK-MB (CK-2) Rel Index 1.1 Troponin I <0.012 (0.000-0.034) ng/mL NT-Pro-B Natriuret Pep pg/mL Total Protein 6.9 (6.3-8.2) g/dL Albumin 3.9 (3.5-5.0) g/dL Lipase 98 (23-300) U/L 12/27/17 12/27/17 Range/Units 19:00 19:00 WBC (3.8-10.6) k/uL RBC (3.80-5.40) m/uL Hgb (11.4-16.0) gm/dL Hct (34.0-46.0) % MCV (80.0-100.0) fL MCH (25.0-35.0) pg MCHC (31.0-37.0) g/dL RDW (11.5-15.5) % Plt Count (150-450) k/uL Neutrophils % % Lymphocytes % % Monocytes % % Eosinophils % % Basophils % % Neutrophils # (1.3-7.7) k/uL Lymphocytes # (1.0-4.8) k/uL Monocytes # (0-1.0) k/uL Eosinophils # (0-0.7) k/uL Basophils # (0-0.2) k/uL Hypochromasia PT 9.8 (9.0-12.0) sec INR 1.0 (<1.2) APTT 23.9 (22.0-30.0) sec Sodium (137-145) mmol/L Potassium (3.5-5.1) mmol/L Chloride (98-107) mmol/L Carbon Dioxide (22-30) mmol/L Anion Gap mmol/L BUN (7-17) mg/dL Creatinine (0.52-1.04) mg/dL Est GFR (CKD-EPI)AfAm (>60 ml/min/1.73 sqM) Est GFR (CKD-EPI)NonAf (>60 ml/min/1.73 sqM) Glucose (74-99) mg/dL Calcium (8.4-10.2) mg/dL Magnesium (1.6-2.3) mg/dL Total Bilirubin (0.2-1.3) mg/dL AST (14-36) U/L ALT (9-52) U/L Alkaline Phosphatase (38-126) U/L Total Creatine Kinase (30-135) U/L CK-MB (CK-2) (0.0-2.4) ng/mL CK-MB (CK-2) Rel Index Troponin I (0.000-0.034) ng/mL NT-Pro-B Natriuret Pep 49 pg/mL Total Protein (6.3-8.2) g/dL Albumin (3.5-5.0) g/dL Lipase (23-300) U/L - Radiology Data Radiology results: report reviewed (Chest x-rays negative for acute disease), image reviewed Disposition Clinical Impression: Chest pain Disposition: HOME SELF-CARE Condition: Good Instructions: Chest Pain (ED) Is patient prescribed a controlled substance at d/c from ED?: No Referrals: Cade Menendez DO [Primary Care Provider] - 1-2 days
[2017-12-27 19:57] LABS: Prothrombin Time 9.8 sec (9.0-12.0)
[2017-12-27 19:58] LABS: Partial Thromboplastin Time 23.9 sec (22.0-30.0)
[2017-12-27 20:02] LABS: ALT 26 U/L (9-52); AST 24 U/L (14-36); Albumin 3.9 g/dL (3.5-5.0); Alkaline Phosphatase 112 U/L (38-126); Anion Gap 7 mmol/L; Blood Urea Nitrogen 11 mg/dL (7-17); Calcium 9.1 mg/dL (8.4-10.2); Carbon Dioxide 25 mmol/L (22-30); Chloride 108 mmol/L (98-107); Glucose 104 mg/dL (74-99); Lipase 98 U/L (23-300); Magnesium 2.4 mg/dL (1.6-2.3); Potassium 4.5 mmol/L (3.5-5.1); Sodium 140 mmol/L (137-145); Total Bilirubin 0.6 mg/dL (0.2-1.3); Total Protein 6.9 g/dL (6.3-8.2)
--- NOTE | 2017-12-27 20:03 | XR ---
EXAMINATION TYPE: XR chest 2V DATE OF EXAM: 12/27/2017 COMPARISON: 12/24/2017 INDICATION: Chest pain substernal pain short of breath TECHNIQUE: Frontal and lateral views of the chest are obtained. FINDINGS: The heart size is normal. The pulmonary vasculature is normal. The lungs are clear. Pacemaker overlies the left lower chest. IMPRESSION: 1. No acute pulmonary process.
[2017-12-27 20:06] LABS: Creatine Kinase 46 U/L (30-135)
[2017-12-27 20:13] VITALS: RESP 16
[2017-12-27 20:18] LABS: Creatine Kinase MB 0.5 ng/mL (0.0-2.4); Troponin I <0.012 ng/mL (0.000-0.034)
[2017-12-27 21:28] VITALS: BP 148/80; PULSE 60; TEMP 97.9
== END 2017-12-27 21:25 | disposition home or self-care (01) ==
LOC: EC 18:45
DX: R07.89 Other chest pain (principal); G40.909 Epilepsy, unspecified, not intractable, without status epilepticus; K21.9 Gastro-esophageal reflux disease without esophagitis; E78.5 Hyperlipidemia, unspecified; I10 Essential (primary) hypertension; E07.9 Disorder of thyroid, unspecified; F32.9 Major depressive disorder, single episode, unspecified; F41.9 Anxiety disorder, unspecified; Z63.8 Other specified problems related to primary support group; Z95.818 Presence of other cardiac implants and grafts; Z95.0 Presence of cardiac pacemaker; Z96.653 Presence of artificial knee joint, bilateral; Z79.899 Other long term (current) drug therapy; Z88.1 Allergy status to other antibiotic agents; Z88.5 Allergy status to narcotic agent; Z91.018 Allergy to other foods; Z88.2 Allergy status to sulfonamides
CPT/HCPCS: 36415; 93005; 83880; 80053; 82550; 82553; 83690; 83735; 84484; 85025; 85610; 85730; 71046; 99285; 96365; J1953

== ENCOUNTER 2018-01-04 17:15 | Emergency (ER) | payer MEDICARE ==
[2018-01-04 17:23] VITALS: TEMP 97.9
[2018-01-04] MEDS ORDERED: SODIUM CHLORIDE 0.9% 1,000 ML IV STA (17:32)
--- NOTE | 2018-01-04 17:46 | ED ---
General Adult HPI <Roc Garcia - Last Filed: 01/04/18 19:33> - General Source: patient, family, RN notes reviewed Mode of arrival: wheelchair Limitations: no limitations <Ulysses Crow - Last Filed: 01/04/18 19:51> - General Chief complaint: Seizure Stated complaint: Seizure Time Seen by Provider: 01/04/18 17:26 - History of Present Illness Initial comments: Patient's a 67-year-old female who presents emergency room today with a chief complaint of a fall occurred this morning. She states she spent the night at her daughter's house per she woke up in the middle of night bathroom and tripped falling down. She states she does not remember hitting her head. She states she did not lose consciousness. She was able to get up and go back to bed. Patient states that today she went [facility]. She states she was out in the sun. She states that she began having a headache approximately half an hour ago prior to arrival here in the ER. She states that it's located upfront into the side. She admits that she has not been eating or drinking much today. Sister at bedside providing further history stated thinks that maybe she had a seizure. States that she has a history and she seemed to be acting postictal. Patients states that she has been taking her Keppra. She denies any other pain or any other symptoms currently. Patient denies any recent fever, chills, shortness of breath, back pain, abdominal pain , nausea or vomiting, numbness or tingling, visual changes, or any other complaints. (Ulysses Crow) - Related Data Home Medications Medication Instructions Recorded Confirmed Atorvastatin [Lipitor] 10 mg PO HS 09/21/13 12/11/17 Cyclobenzaprine [Flexeril] 10 mg PO BID PRN 09/21/13 12/11/17 LORazepam [Lorazepam] 0.5 mg PO TID PRN 09/21/13 12/11/17 Citalopram Hydrobromide [CeleXA] 40 mg PO DAILY 08/29/17 12/11/17 Fycompa 4 Mg 4 mg PO HS 09/25/17 12/11/17 Ibuprofen [Motrin] 600 mg PO Q8HR PRN 09/25/17 12/11/17 Carvedilol [Coreg] 3.125 mg PO BID 11/11/17 12/11/17 Levothyroxine Sodium [Synthroid] 50 mcg PO DAILY 11/11/17 12/11/17 Meclizine [Antivert] 25 mg PO TID 11/11/17 12/11/17 Omeprazole 20 mg PO BID 11/11/17 12/11/17 Potassium Chloride ER [K-Dur 20] 20 meq PO DAILY 11/11/17 12/11/17 Zolpidem [Ambien] 10 mg PO HS PRN 11/11/17 12/11/17 buPROPion XL [Wellbutrin Xl] 150 mg PO HS 11/11/17 12/11/17 levETIRAcetam [Keppra] 1,000 mg PO HS 12/11/17 12/11/17 levETIRAcetam [Keppra] 250 mg PO QAM 12/11/17 12/11/17 Allergies Allergy/AdvReac Type Severity Reaction Status Date / Time ciprofloxacin [From Cipro] Allergy Unknown Verified 01/04/18 17:23 ciprofloxacin HCl Allergy Unknown Verified 01/04/18 17:23 [From Cipro] hydromorphone [From Dilaudid] Allergy Rash/Hives Verified 01/04/18 17:23 soy Allergy Anaphylaxis Verified 01/04/18 17:23 tetracycline [Tetracycline] Allergy Rash/Hives Verified 01/04/18 17:23 tioconazole [From Monistat 1] Allergy Rash/Hives Verified 01/04/18 17:23 codeine AdvReac Rash/Hives Verified 01/04/18 17:23 hydrocodone bitartrate AdvReac Rash/Hives Verified 01/04/18 17:23 [From Lortab] meperidine HCl [From Demerol] AdvReac Rash/Hives Verified 01/04/18 17:23 morphine AdvReac Rash/Hives Verified 01/04/18 17:23 propoxyphene napsylate AdvReac Rash/Hives Verified 01/04/18 17:23 [From Darvocet-N 100] Sulfa (Sulfonamide AdvReac Rash/Hives Verified 01/04/18 17:23 Antibiotics) Review of Systems ROS Other: All systems not noted in ROS Statement are negative. <Roc Garcia - Last Filed: 01/04/18 19:33> ROS Other: All systems not noted in ROS Statement are negative. <Ulysses Crow - Last Filed: 01/04/18 19:51> ROS Statement: Those systems with pertinent positive or pertinent negative responses have been documented in the HPI. Past Medical History Past Medical History: GERD/Reflux, GI Bleed, Hyperlipidemia, Hypertension, Osteoarthritis (OA), Seizure Disorder, Thyroid Disorder Additional Past Medical History / Comment(s): history of depression History of Any Multi-Drug Resistant Organisms: None Reported Past Surgical History: Back Surgery, Cholecystectomy, Heart Catheterization, Hernia Repair, Joint Replacement, Pacemaker, Tonsillectomy Additional Past Surgical History / Comment(s): LAP BAND INSERTED & REMOVED, GASTRIC SLEEVE (2016), GINI TOTAL KNEES, CERVICAL FUSION (-7), BOWEL RESECTION. , INCISIONAL HERNIA'S. STATES SEVERAL HEART CATHS-NO STENTS (DONE AT [facility]) Past Anesthesia/Blood Transfusion Reactions: No Reported Reaction Type of Cardiac Device: Permanent Pacemaker Device Placement Date:: 10/12/17 Past Psychological History: Anxiety, Depression Smoking Status: Never smoker Past Alcohol Use History: None Reported Past Drug Use History: None Reported - Past Family History Mother Family Medical History: Pulmonary Embolus Additional Family Medical History / Comment(s): Multiple TIA's. Father Family Medical History: Cancer Additional Family Medical History / Comment(s): Lung Sister(s) Family Medical History: Cancer Additional Family Medical History / Comment(s): OVARIAN CANCER <Ulysses Crow - Last Filed: 01/04/18 19:51> General Exam <Roc Garcia - Last Filed: 01/04/18 19:33> Limitations: no limitations <Ulysses Crow - Last Filed: 01/04/18 19:51> - General Exam Comments Initial Comments: General: The patient is awake and alert, in no distress. appears sleepy. Eye: Pupils are equal, round and reactive to light. Extra-ocular movements are intact. No nystagmus. There is normal conjunctiva bilaterally. No signs of icterus. Ears, nose, mouth and throat: There are moist mucous membranes and no oral lesions. Neck: The neck is supple, there is no tenderness or JVD. Cardiovascular: There is a regular rate and rhythm. No murmur, rub or gallop is appreciated. Respiratory: Lungs are clear to auscultation, respirations are non-labored, breath sounds are equal. No wheezes, stridor, rales, or rhonchi. Gastrointestinal: Soft, non-distended, non-tender abdomen without masses or organomegaly noted. There is no rebound or guarding present. No CVA tenderness. Musculoskeletal: Normal ROM, no tenderness. Sensation intact. Strength 5/5. Pulses equal bilaterally 2+. Neurological: A&O x 3. CN II-XII intact, There are no obvious motor or sensory deficits. Coordination appears grossly intact. Speech is normal. Skin: Skin is warm and dry and no rashes or lesions are noted. Psychiatric: Cooperative, appropriate mood & affect, normal judgment. (Ulysses Crow) Vital Signs 01/04/18 01/04/18 01/04/18 17:16 18:01 19:23 Temperature 97.9 F Pulse Rate 68 61 56 L Respiratory 18 16 18 Rate Blood Pressure 128/83 118/60 120/56 O2 Sat by Pulse 95 94 L 95 Oximetry Medical Decision Making - Lab Data Result diagrams: 01/04/18 17:44 01/04/18 17:44 <Roc Garcia - Last Filed: 01/04/18 19:33> - Lab Data Result diagrams: 01/04/18 17:44 01/04/18 17:44 <Ulysses Crow - Last Filed: 01/04/18 19:51> - Medical Decision Making Medical decision making; this is a 67-year-old female who has a history of seizures. The patient is mildly postictal upon arrival to emergency room. She reports that she was hot may have gotten dehydrated while at the [facility] today. She takes Keppra and several other medications. The patient is easily arousable. Nose who she is where she is and why she is here. She does not drive. Another sister will this time be taking her home. Patient states that she has perhaps 1 or more seizures per week. Advised to call follow with her family doctor and her neurologist. Patient is able to open close her eyes and answer questions appropriately move upper and lower extremities without difficulty. Dr. Garcia (Roc Garcia) EKG performed at 1754: Shows normal sinus rhythm at 60 bpm LA intervals 182. QRS 90. Percogesic/QTc 456/456. Compared to previous EKG on 12/27/2017 showing no changes. (Ulysses Crow) - Lab Data Lab Results 01/04/18 01/04/18 01/04/18 Range/Units 17:44 17:44 17:44 WBC 5.4 (3.8-10.6) k/uL RBC 4.74 (3.80-5.40) m/uL Hgb 11.3 L (11.4-16.0) gm/dL Hct 37.2 (34.0-46.0) % MCV 78.4 L (80.0-100.0) fL MCH 23.9 L (25.0-35.0) pg MCHC 30.4 L (31.0-37.0) g/dL RDW 14.9 (11.5-15.5) % Plt Count 195 (150-450) k/uL Neutrophils % 53 % Lymphocytes % 33 % Monocytes % 7 % Eosinophils % 5 % Basophils % 1 % Neutrophils # 2.9 (1.3-7.7) k/uL Lymphocytes # 1.8 (1.0-4.8) k/uL Monocytes # 0.4 (0-1.0) k/uL Eosinophils # 0.2 (0-0.7) k/uL Basophils # 0.0 (0-0.2) k/uL Hypochromasia Moderate PT (9.0-12.0) sec INR (<1.2) APTT (22.0-30.0) sec Sodium 139 (137-145) mmol/L Potassium 4.2 (3.5-5.1) mmol/L Chloride 107 (98-107) mmol/L Carbon Dioxide 21 L (22-30) mmol/L Anion Gap 11 mmol/L BUN 10 (7-17) mg/dL Creatinine 0.85 (0.52-1.04) mg/dL Est GFR (CKD-EPI)AfAm 82 (>60 ml/min/1.73 sqM) Est GFR (CKD-EPI)NonAf 71 (>60 ml/min/1.73 sqM) Glucose 89 (74-99) mg/dL POC Glucose (mg/dL) (75-99) mg/dL POC Glu Alarm Mechanic ID Calcium 9.1 (8.4-10.2) mg/dL Total Bilirubin 0.9 (0.2-1.3) mg/dL AST 29 (14-36) U/L ALT 21 (9-52) U/L Alkaline Phosphatase 114 (38-126) U/L Total Creatine Kinase 69 (30-135) U/L CK-MB (CK-2) 0.5 (0.0-2.4) ng/mL CK-MB (CK-2) Rel Index 0.7 Troponin I <0.012 (0.000-0.034) ng/mL Total Protein 6.9 (6.3-8.2) g/dL Albumin 4.0 (3.5-5.0) g/dL Urine Color Urine Appearance (Clear) Urine pH (5.0-8.0) Ur Specific Dyer (1.001-1.035) Urine Protein (Negative) Urine Glucose (UA) (Negative) Urine Ketones (Negative) Urine Blood (Negative) Urine Nitrite (Negative) Urine Bilirubin (Negative) Urine Urobilinogen (<2.0) mg/dL Ur Leukocyte Esterase (Negative) Urine Opiates Screen (NotDetected) Ur Oxycodone Screen (NotDetected) Urine Methadone Screen (NotDetected) Ur Propoxyphene Screen (NotDetected) Ur Barbiturates Screen (NotDetected) U Tricyclic Antidepress (NotDetected) Ur Phencyclidine Scrn (NotDetected) Ur Amphetamines Screen (NotDetected) U Methamphetamines Scrn (NotDetected) U Benzodiazepines Scrn (NotDetected) Urine Cocaine Screen (NotDetected) U Marijuana (THC) Screen (NotDetected) 01/04/18 01/04/18 01/04/18 Range/Units 17:44 18:02 18:33 WBC (3.8-10.6) k/uL RBC (3.80-5.40) m/uL Hgb (11.4-16.0) gm/dL Hct (34.0-46.0) % MCV (80.0-100.0) fL MCH (25.0-35.0) pg MCHC (31.0-37.0) g/dL RDW (11.5-15.5) % Plt Count (150-450) k/uL Neutrophils % % Lymphocytes % % Monocytes % % Eosinophils % % Basophils % % Neutrophils # (1.3-7.7) k/uL Lymphocytes # (1.0-4.8) k/uL Monocytes # (0-1.0) k/uL Eosinophils # (0-0.7) k/uL Basophils # (0-0.2) k/uL Hypochromasia PT 11.5 (9.0-12.0) sec INR 1.2 H (<1.2) APTT 19.2 L (22.0-30.0) sec Sodium (137-145) mmol/L Potassium (3.5-5.1) mmol/L Chloride (98-107) mmol/L Carbon Dioxide (22-30) mmol/L Anion Gap mmol/L BUN (7-17) mg/dL Creatinine (0.52-1.04) mg/dL Est GFR (CKD-EPI)AfAm (>60 ml/min/1.73 sqM) Est GFR (CKD-EPI)NonAf (>60 ml/min/1.73 sqM) Glucose (74-99) mg/dL POC Glucose (mg/dL) 89 (75-99) mg/dL POC Glu Alarm Mechanic ID Benjamin Nielson Calcium (8.4-10.2) mg/dL Total Bilirubin (0.2-1.3) mg/dL AST (14-36) U/L ALT (9-52) U/L Alkaline Phosphatase (38-126) U/L Total Creatine Kinase (30-135) U/L CK-MB (CK-2) (0.0-2.4) ng/mL CK-MB (CK-2) Rel Index Troponin I (0.000-0.034) ng/mL Total Protein (6.3-8.2) g/dL Albumin (3.5-5.0) g/dL Urine Color Colorless Urine Appearance Clear (Clear) Urine pH 5.0 (5.0-8.0) Ur Specific Dyer 1.003 (1.001-1.035) Urine Protein Negative (Negative) Urine Glucose (UA) Negative (Negative) Urine Ketones 1+ H (Negative) Urine Blood Negative (Negative) Urine Nitrite Negative (Negative) Urine Bilirubin Negative (Negative) Urine Urobilinogen <2.0 (<2.0) mg/dL Ur Leukocyte Esterase Negative (Negative) Urine Opiates Screen Not Detected (NotDetected) Ur Oxycodone Screen Not Detected (NotDetected) Urine Methadone Screen Not Detected (NotDetected) Ur Propoxyphene Screen Not Detected (NotDetected) Ur Barbiturates Screen Not Detected (NotDetected) U Tricyclic Antidepress Not Detected (NotDetected) Ur Phencyclidine Scrn Not Detected (NotDetected) Ur Amphetamines Screen Not Detected (NotDetected) U Methamphetamines Scrn Not Detected (NotDetected) U Benzodiazepines Scrn Detected H (NotDetected) Urine Cocaine Screen Not Detected (NotDetected) U Marijuana (THC) Screen Not Detected (NotDetected) Disposition <Roc Garcia - Last Filed: 01/04/18 19:33> Is patient prescribed a controlled substance at d/c from ED?: No Time of Disposition: 19:40 <Ulysses Crow - Last Filed: 01/04/18 19:51> Clinical Impression: History of seizure Disposition: HOME SELF-CARE Condition: Good Instructions: Recurrent Seizures in Adults (ED) Additional Instructions: Please follow-up with family doctor tomorrow. Please return to emergency room if the symptoms increase or worsen or for any other concerns. Referrals: Cade Menendez DO [Primary Care Provider] - 1-2 days
[2018-01-04 18:08] LABS: Basophils % (A) 1 %; Eosinophils # (A) 0.2 k/uL (0-0.7); Eosinophils % (A) 5 %; HCT 37.2 % (34.0-46.0); HGB 11.3 gm/dL (11.4-16.0); Hypochromasia Moderate; Lymphocytes # (A) 1.8 k/uL (1.0-4.8); Lymphocytes % (A) 33 %; MCH 23.9 pg (25.0-35.0); MCHC 30.4 g/dL (31.0-37.0); MCV 78.4 fL (80.0-100.0); Mean Platelet Volume 7.2; Monocytes # (A) 0.4 k/uL (0-1.0); Monocytes % (A) 7 %; Neutrophils # (A) 2.9 k/uL (1.3-7.7); Neutrophils % (A) 53 %; Platelet Count 195 k/uL (150-450); RBC 4.74 m/uL (3.80-5.40); RDW 14.9 % (11.5-15.5); WBC 5.4 k/uL (3.8-10.6)
[2018-01-04 18:10] LABS: Glucose,Whole Blood 89 mg/dL (75-99)
[2018-01-04 18:20] LABS: Calcium 9.1 mg/dL (8.4-10.2); Creatine Kinase 69 U/L (30-135); Potassium 4.2 mmol/L (3.5-5.1); Total Bilirubin 0.9 mg/dL (0.2-1.3); Total Protein 6.9 g/dL (6.3-8.2)
[2018-01-04 18:23] LABS: INR 1.2 (<1.2); Prothrombin Time 11.5 sec (9.0-12.0)
[2018-01-04 18:25] LABS: Partial Thromboplastin Time 19.2 sec (22.0-30.0)
--- NOTE | 2018-01-04 18:31 | XR ---
EXAMINATION TYPE: XR chest 2V DATE OF EXAM: 01/04/2018 COMPARISON: 12/27/2017 HISTORY: Syncope TECHNIQUE: Frontal and lateral views of the chest are obtained. FINDINGS: There is no heart failure nor confluent pneumonic infiltrate. Costophrenic angles are hector r. There is left axillary pacemaker with the lead tips in the right ventricle. Bony thorax is intact. IMPRESSION: No active cardiopulmonary disease. No change. There is some stable posterior pleural thi ckening over the lower thoracic spine on the lateral view compared to 10/09/2017 and of doubtful clini armaan significance.
[2018-01-04 18:33] LABS: Creatine Kinase MB 0.5 ng/mL (0.0-2.4); Troponin I <0.012 ng/mL (0.000-0.034)
[2018-01-04 18:43] LABS: Appearance,Urine Clear (Clear); Bilirubin,Urine Negative (Negative); Blood,Urine Negative (Negative); Color,Urine Colorless; Glucose,Urine (UA) Negative (Negative); Ketones,Urine 1+ (Negative); Leukocyte Esterase,Urine Negative (Negative); Nitrite,Urine Negative (Negative); Protein,Urine Negative (Negative); Specific Gravity,Urine 1.003 (1.001-1.035); Urobilinogen,Urine <2.0 mg/dL (<2.0)
[2018-01-04 18:59] LABS: Amphetamine Screen,Urine Not Detected (NotDetected); Barbiturate Screen,Urine Not Detected (NotDetected); Benzodiazepines Screen,Urine Detected (NotDetected); Cocaine Screen,Urine Not Detected (NotDetected); Methadone Screen, Urine Not Detected (NotDetected); Opiate Screen,Urine Not Detected (NotDetected); Oxycodone Screen, Urine Not Detected (NotDetected); Phencyclidine Screen,Urine Not Detected (NotDetected); Tricyclic Antidepressant,Urine Not Detected (NotDetected); Urn Cannabinoid Scrn Not Detected (NotDetected)
--- NOTE | 2018-01-04 19:11 | CT ---
EXAMINATION TYPE: CT brain wo con DATE OF EXAM: 01/04/2018 COMPARISON: 12/24/2017 HISTORY: seizure CT DLP: 1028 mGycm Automated exposure control for dose reduction was used. FINDINGS: Ventricles of normal size. There is no mass effect nor midline shift. There is no sign of intracrania l hemorrhage. The calvarium appears intact. IMPRESSION: NEGATIVE CT SCAN OF THE BRAIN. NO CHANGE.
[2018-01-04 19:24] VITALS: BP 120/56; PULSE 56; RESP 18
== END 2018-01-04 19:57 | disposition home or self-care (01) ==
LOC: EC 17:15
DX: G40.909 Epilepsy, unspecified, not intractable, without status epilepticus (principal); K21.9 Gastro-esophageal reflux disease without esophagitis; E78.5 Hyperlipidemia, unspecified; I10 Essential (primary) hypertension; E07.9 Disorder of thyroid, unspecified; F41.9 Anxiety disorder, unspecified; F32.9 Major depressive disorder, single episode, unspecified; Z95.818 Presence of other cardiac implants and grafts; Z95.0 Presence of cardiac pacemaker; Z96.653 Presence of artificial knee joint, bilateral; Z79.899 Other long term (current) drug therapy; Z88.1 Allergy status to other antibiotic agents; Z88.5 Allergy status to narcotic agent; Z91.018 Allergy to other foods; Z88.2 Allergy status to sulfonamides
CPT/HCPCS: 36415; 70450; 71046; 80053; 80306; 81003; 82550; 82553; 84484; 85025; 85610; 85730; 93005; 96360; 96361; 99284; 99285

== ENCOUNTER 2018-01-08 16:20 | Observation (INO) | payer MEDICARE ==
[2018-01-08 16:22] VITALS: RESP 18
--- NOTE | 2018-01-08 16:57 | ED ---
General Adult HPI - General Chief complaint: Chest Pain Stated complaint: chest pain Time Seen by Provider: 01/08/18 16:40 Source: patient, RN notes reviewed, old records reviewed Mode of arrival: wheelchair Limitations: no limitations - History of Present Illness Initial comments: This is a 59-year-old female the ER for evaluation patient is known to our facility for evaluation today of chest pain recurrent seizures and anxiety. Patient has no history of heart disease and chest pain. His of pacemaker placed. Patient is recent familial issues causing stress and anxiety, patient also does have seizure history underlying which she does take her seizure medications for but family states she's been having uncontrolled seizures. Again currently right now patient continues with some occasional chest pain no shortness of breath no travel history no sick contacts. No fevers. No cough or congestion. She states she's been taking all medications as prescribed. - Related Data Home Medications Medication Instructions Recorded Confirmed Atorvastatin [Lipitor] 10 mg PO HS 09/21/13 01/08/18 Cyclobenzaprine [Flexeril] 10 mg PO BID PRN 09/21/13 01/08/18 LORazepam [Lorazepam] 0.5 mg PO BID 09/21/13 01/08/18 Citalopram Hydrobromide [CeleXA] 40 mg PO DAILY 08/29/17 01/08/18 Fycompa 4 Mg 4 mg PO HS 09/25/17 01/08/18 Ibuprofen [Motrin] 600 mg PO Q8HR PRN 09/25/17 01/08/18 Carvedilol [Coreg] 3.125 mg PO BID 11/11/17 01/08/18 Levothyroxine Sodium [Synthroid] 50 mcg PO DAILY 11/11/17 01/08/18 Meclizine [Antivert] 25 mg PO TID 11/11/17 01/08/18 Omeprazole 20 mg PO BID 11/11/17 01/08/18 Potassium Chloride ER [K-Dur 20] 20 meq PO DAILY 11/11/17 01/08/18 Zolpidem [Ambien] 10 mg PO HS PRN 11/11/17 01/08/18 buPROPion XL [Wellbutrin Xl] 150 mg PO HS 11/11/17 01/08/18 levETIRAcetam [Keppra] 1,000 mg PO HS 12/11/17 01/08/18 levETIRAcetam [Keppra] 1,250 mg PO QAM 12/11/17 01/08/18 amLODIPine [Norvasc] 5 mg PO DAILY 01/08/18 01/08/18 Allergies Allergy/AdvReac Type Severity Reaction Status Date / Time ciprofloxacin [From Cipro] Allergy Unknown Verified 01/08/18 21:47 ciprofloxacin HCl Allergy Unknown Verified 01/08/18 21:47 [From Cipro] hydromorphone [From Dilaudid] Allergy Rash/Hives Verified 01/08/18 21:47 soy Allergy Anaphylaxis Verified 01/08/18 21:47 tetracycline [Tetracycline] Allergy Rash/Hives Verified 01/08/18 21:47 tioconazole [From Monistat 1] Allergy Rash/Hives Verified 01/08/18 21:47 codeine AdvReac Rash/Hives Verified 01/08/18 21:47 hydrocodone bitartrate AdvReac Rash/Hives Verified 01/08/18 21:47 [From Lortab] meperidine HCl [From Demerol] AdvReac Rash/Hives Verified 01/08/18 21:47 morphine AdvReac Rash/Hives Verified 01/08/18 21:47 propoxyphene napsylate AdvReac Rash/Hives Verified 01/08/18 21:47 [From Darvocet-N 100] Sulfa (Sulfonamide AdvReac Rash/Hives Verified 01/08/18 21:47 Antibiotics) Review of Systems ROS Statement: Those systems with pertinent positive or pertinent negative responses have been documented in the HPI. ROS Other: All systems not noted in ROS Statement are negative. Past Medical History Past Medical History: GERD/Reflux, GI Bleed, Hyperlipidemia, Hypertension, Osteoarthritis (OA), Seizure Disorder, Thyroid Disorder Additional Past Medical History / Comment(s): history of depression History of Any Multi-Drug Resistant Organisms: None Reported Past Surgical History: Back Surgery, Cholecystectomy, Heart Catheterization, Hernia Repair, Joint Replacement, Pacemaker, Tonsillectomy Additional Past Surgical History / Comment(s): LAP BAND INSERTED & REMOVED, GASTRIC SLEEVE (2016), GINI TOTAL KNEES, CERVICAL FUSION (2-7), BOWEL RESECTION. , INCISIONAL HERNIA'S. STATES SEVERAL HEART CATHS-NO STENTS (DONE AT [facility] & [facility]) Past Anesthesia/Blood Transfusion Reactions: No Reported Reaction Type of Cardiac Device: Permanent Pacemaker Device Placement Date:: 10/12/17 Past Psychological History: Anxiety, Depression Smoking Status: Never smoker Past Alcohol Use History: None Reported Past Drug Use History: None Reported - Past Family History Mother Family Medical History: Pulmonary Embolus Additional Family Medical History / Comment(s): Multiple TIA's. Father Family Medical History: Cancer Additional Family Medical History / Comment(s): Lung Sister(s) Family Medical History: Cancer Additional Family Medical History / Comment(s): OVARIAN CANCER General Exam Limitations: no limitations General appearance: alert, in no apparent distress, anxious Head exam: Present: atraumatic, normocephalic, normal inspection Eye exam: Present: normal appearance, PERRL, EOMI. Absent: scleral icterus, conjunctival injection, periorbital swelling ENT exam: Present: normal exam, mucous membranes moist Neck exam: Present: normal inspection. Absent: tenderness, meningismus, lymphadenopathy Respiratory exam: Present: normal lung sounds bilaterally. Absent: respiratory distress, wheezes, rales, rhonchi, stridor Cardiovascular Exam: Present: regular rate, normal rhythm, normal heart sounds. Absent: systolic murmur, diastolic murmur, rubs, gallop, clicks GI/Abdominal exam: Present: soft, normal bowel sounds. Absent: distended, tenderness, guarding, rebound, rigid Extremities exam: Present: normal inspection, full ROM, normal capillary refill. Absent: tenderness, pedal edema, joint swelling, calf tenderness Back exam: Present: normal inspection Neurological exam: Present: alert, oriented X3, CN II-XII intact Psychiatric exam: Present: normal affect, normal mood Skin exam: Present: warm, dry, intact, normal color. Absent: rash Course Vital Signs 01/08/18 01/08/18 01/08/18 16:20 18:15 19:58 Temperature 97.7 F 97.2 F L Pulse Rate 68 57 L 55 L Respiratory 18 18 18 Rate Blood Pressure 139/90 154/80 164/83 O2 Sat by Pulse 95 97 99 Oximetry - Reevaluation(s) Reevaluation #1: Medical record is reviewed EKG Findings - EKG Comments: EKG Findings:: EKG shows sinus bradycardia rate of 59, SC 172, QRS 82, QTc 412 Medical Decision Making - Medical Decision Making 59 female the ER with recurrent chest pain and current chest pain. Patient also has recent history of anxiety. Multiple seizures recurrent seizures. Patient be admitted for treatment of above - Lab Data Result diagrams: 01/08/18 16:37 01/08/18 16:37 Lab Results 01/08/18 01/08/18 01/08/18 Range/Units 16:37 16:37 16:37 WBC 6.6 (3.8-10.6) k/uL RBC 5.11 (3.80-5.40) m/uL Hgb 12.3 (11.4-16.0) gm/dL Hct 40.2 (34.0-46.0) % MCV 78.7 L (80.0-100.0) fL MCH 24.2 L (25.0-35.0) pg MCHC 30.7 L (31.0-37.0) g/dL RDW 14.9 (11.5-15.5) % Plt Count 310 (150-450) k/uL Neutrophils % 48 % Lymphocytes % 37 % Monocytes % 6 % Eosinophils % 6 % Basophils % 1 % Neutrophils # 3.2 (1.3-7.7) k/uL Lymphocytes # 2.5 (1.0-4.8) k/uL Monocytes # 0.4 (0-1.0) k/uL Eosinophils # 0.4 (0-0.7) k/uL Basophils # 0.1 (0-0.2) k/uL Hypochromasia Marked PT (9.0-12.0) sec INR (<1.2) APTT (22.0-30.0) sec Sodium 141 (137-145) mmol/L Potassium 4.4 (3.5-5.1) mmol/L Chloride 109 H (98-107) mmol/L Carbon Dioxide 29 (22-30) mmol/L Anion Gap 3 mmol/L BUN 11 (7-17) mg/dL Creatinine 0.70 (0.52-1.04) mg/dL Est GFR (CKD-EPI)AfAm >90 (>60 ml/min/1.73 sqM) Est GFR (CKD-EPI)NonAf 89 (>60 ml/min/1.73 sqM) Glucose 106 H (74-99) mg/dL Calcium 9.5 (8.4-10.2) mg/dL Magnesium 2.3 (1.6-2.3) mg/dL Total Bilirubin 0.7 (0.2-1.3) mg/dL AST 22 (14-36) U/L ALT 26 (9-52) U/L Alkaline Phosphatase 110 (38-126) U/L Total Creatine Kinase 40 (30-135) U/L CK-MB (CK-2) 0.4 (0.0-2.4) ng/mL CK-MB (CK-2) Rel Index 1.0 Troponin I <0.012 (0.000-0.034) ng/mL NT-Pro-B Natriuret Pep pg/mL Total Protein 7.0 (6.3-8.2) g/dL Albumin 4.1 (3.5-5.0) g/dL Lipase 86 (23-300) U/L Urine Color Urine Appearance (Clear) Urine pH (5.0-8.0) Ur Specific [place] (1.001-1.035) Urine Protein (Negative) Urine Glucose (UA) (Negative) Urine Ketones (Negative) Urine Blood (Negative) Urine Nitrite (Negative) Urine Bilirubin (Negative) Urine Urobilinogen (<2.0) mg/dL Ur Leukocyte Esterase (Negative) Urine RBC (0-5) /hpf Urine WBC (0-5) /hpf Ur Squamous Epith Cells (0-4) /hpf Urine Mucus (None) /hpf 01/08/18 01/08/18 01/08/18 Range/Units 16:37 16:37 17:15 WBC (3.8-10.6) k/uL RBC (3.80-5.40) m/uL Hgb (11.4-16.0) gm/dL Hct (34.0-46.0) % MCV (80.0-100.0) fL MCH (25.0-35.0) pg MCHC (31.0-37.0) g/dL RDW (11.5-15.5) % Plt Count (150-450) k/uL Neutrophils % % Lymphocytes % % Monocytes % % Eosinophils % % Basophils % % Neutrophils # (1.3-7.7) k/uL Lymphocytes # (1.0-4.8) k/uL Monocytes # (0-1.0) k/uL Eosinophils # (0-0.7) k/uL Basophils # (0-0.2) k/uL Hypochromasia PT 9.6 (9.0-12.0) sec INR 1.0 (<1.2) APTT 23.1 (22.0-30.0) sec Sodium (137-145) mmol/L Potassium (3.5-5.1) mmol/L Chloride (98-107) mmol/L Carbon Dioxide (22-30) mmol/L Anion Gap mmol/L BUN (7-17) mg/dL Creatinine (0.52-1.04) mg/dL Est GFR (CKD-EPI)AfAm (>60 ml/min/1.73 sqM) Est GFR (CKD-EPI)NonAf (>60 ml/min/1.73 sqM) Glucose (74-99) mg/dL Calcium (8.4-10.2) mg/dL Magnesium (1.6-2.3) mg/dL Total Bilirubin (0.2-1.3) mg/dL AST (14-36) U/L ALT (9-52) U/L Alkaline Phosphatase (38-126) U/L Total Creatine Kinase (30-135) U/L CK-MB (CK-2) (0.0-2.4) ng/mL CK-MB (CK-2) Rel Index Troponin I (0.000-0.034) ng/mL NT-Pro-B Natriuret Pep 68 pg/mL Total Protein (6.3-8.2) g/dL Albumin (3.5-5.0) g/dL Lipase (23-300) U/L Urine Color Yellow Urine Appearance Clear (Clear) Urine pH 6.0 (5.0-8.0) Ur Specific [place] 1.016 (1.001-1.035) Urine Protein Negative (Negative) Urine Glucose (UA) Negative (Negative) Urine Ketones Negative (Negative) Urine Blood Negative (Negative) Urine Nitrite Negative (Negative) Urine Bilirubin Negative (Negative) Urine Urobilinogen 2.0 (<2.0) mg/dL Ur Leukocyte Esterase Trace H (Negative) Urine RBC 1 (0-5) /hpf Urine WBC 4 (0-5) /hpf Ur Squamous Epith Cells <1 (0-4) /hpf Urine Mucus Few H (None) /hpf - Radiology Data Radiology results: report reviewed (Chest x-rays negative for acute disease), image reviewed Critical Care Time Critical Care Time: Yes Total Critical Care Time: 31 Disposition Clinical Impression: Seizure disorder, Chest pain, Unstable angina pectoris Disposition: ADMITTED IP TO THIS HOSP Condition: Undetermined Is patient prescribed a controlled substance at d/c from ED?: No
[2018-01-08 17:08] LABS: Basophils # (A) 0.1 k/uL (0-0.2); Basophils % (A) 1 %; Eosinophils # (A) 0.4 k/uL (0-0.7); Eosinophils % (A) 6 %; HCT 40.2 % (34.0-46.0); HGB 12.3 gm/dL (11.4-16.0); Hypochromasia Marked; Lymphocytes # (A) 2.5 k/uL (1.0-4.8); Lymphocytes % (A) 37 %; MCH 24.2 pg (25.0-35.0); MCHC 30.7 g/dL (31.0-37.0); MCV 78.7 fL (80.0-100.0); Mean Platelet Volume 6.7; Monocytes # (A) 0.4 k/uL (0-1.0); Monocytes % (A) 6 %; Neutrophils # (A) 3.2 k/uL (1.3-7.7); Neutrophils % (A) 48 %; Platelet Count 310 k/uL (150-450); RBC 5.11 m/uL (3.80-5.40); RDW 14.9 % (11.5-15.5); WBC 6.6 k/uL (3.8-10.6)
[2018-01-08 17:15] LABS: Partial Thromboplastin Time 23.1 sec (22.0-30.0); Prothrombin Time 9.6 sec (9.0-12.0)
[2018-01-08 17:20] LABS: Sodium 141 mmol/L (137-145)
[2018-01-08 17:21] LABS: ALT 26 U/L (9-52); AST 22 U/L (14-36); Albumin 4.1 g/dL (3.5-5.0); Alkaline Phosphatase 110 U/L (38-126); Anion Gap 3 mmol/L; Blood Urea Nitrogen 11 mg/dL (7-17); Calcium 9.5 mg/dL (8.4-10.2); Carbon Dioxide 29 mmol/L (22-30); Chloride 109 mmol/L (98-107); Glucose 106 mg/dL (74-99); Lipase 86 U/L (23-300); Magnesium 2.3 mg/dL (1.6-2.3); Potassium 4.4 mmol/L (3.5-5.1); Total Bilirubin 0.7 mg/dL (0.2-1.3)
[2018-01-08 17:24] LABS: Creatine Kinase 40 U/L (30-135)
[2018-01-08 17:37] LABS: Creatine Kinase MB 0.4 ng/mL (0.0-2.4); Troponin I <0.012 ng/mL (0.000-0.034)
[2018-01-08 17:40] LABS: Appearance,Urine Clear (Clear); Bilirubin,Urine Negative (Negative); Blood,Urine Negative (Negative); Color,Urine Yellow; Glucose,Urine (UA) Negative (Negative); Ketones,Urine Negative (Negative); Leukocyte Esterase,Urine Trace (Negative); Mucus,Urine Few /hpf; Nitrite,Urine Negative (Negative); Protein,Urine Negative (Negative); RBC,Urine 1 /hpf (0-5); Specific Gravity,Urine 1.016 (1.001-1.035); Squamous Epithelial Cell,Urine <1 /hpf (0-4); WBC,Urine 4 /hpf (0-5)
--- NOTE | 2018-01-08 18:03 | XR ---
EXAMINATION TYPE: XR chest 2V DATE OF EXAM: 01/08/2018 COMPARISON: 01/04/2018 HISTORY: Hypertension TECHNIQUE: Frontal and lateral views of the chest are obtained. FINDINGS: Heart and mediastinum are normal. Lungs are clear. Costophrenic angles are clear. There is left axillary pacemaker with the lead tips in the right ventricle. Bony thorax is intact. IMPRESSION: No active cardiopulmonary disease. Normal heart. There is minimal posterior pleural thic kening at the posterior lung base on the lateral view that is the same or improved compared to last e xam.
[2018-01-08] MEDS ORDERED: ASPIRIN 81 MG PO STA (20:24)
[2018-01-08] MEDS ORDERED: MORPHINE SULFATE 4 MG/ML SYRINGE IV PRN (20:24)
[2018-01-08] MEDS ORDERED: NITROGLYCERIN SL TABS 0.4 MG TAB SUBLINGUAL PRN (20:24)
[2018-01-08] MEDS ORDERED: LORazepam 2 MG/ML INJ IV STA (20:24)
[2018-01-08] MEDS ORDERED: LORazepam 2 MG/ML INJ IV PRN (20:24)
[2018-01-08] MEDS ORDERED: SODIUM CHLORIDE 0.9% 1,000 ML IV SCH (20:30)
[2018-01-08] MEDS ORDERED: METOPROLOL TARTRATE 25 MG TAB PO SCH (21:00)
[2018-01-08] MEDS ORDERED: IBUPROFEN 600 MG TAB PO PRN (22:01)
[2018-01-08] MEDS ORDERED: ZOLPIDEM 10 MG TAB PO PRN (22:01)
[2018-01-08] MEDS ORDERED: MECLIZINE 25 MG TAB PO PRN (22:02)
[2018-01-08] MEDS ORDERED: CARVEDILOL 3.125 MG TAB PO SCH (22:15)
[2018-01-08] MEDS ORDERED: buPROPion XL 150 MG TAB.ER.24H PO SCH (22:15)
[2018-01-08] MEDS ORDERED: ATORVASTATIN 10 MG TAB PO SCH (22:15)
[2018-01-08] MEDS ORDERED: POTASSIUM CHLORIDE ER 20 MEQ TAB.ER PO SCH (22:20)
[2018-01-08] MEDS: LORazepam 0.5 MG TAB PO SCH (22:29)
[2018-01-08] MEDS: CYCLOBENZAPRINE 10 MG TAB PO PRN (22:29)
[2018-01-08] MEDS: levETIRAcetam IV 1,000 MG in SALINE 1 100ML.BAG IVPB SCH (22:29)
[2018-01-08] MEDS: CARVEDILOL 3.125 MG TAB PO SCH (22:30)
[2018-01-08 23:03] LABS: Creatine Kinase 43 U/L (30-135)
[2018-01-08 23:16] LABS: Creatine Kinase MB 0.4 ng/mL (0.0-2.4); Troponin I <0.012 ng/mL (0.000-0.034)
[2018-01-09 05:49] LABS: Cholesterol 155 mg/dL (<200); HDL Cholesterol 67 mg/dL (40-60); LDL Cholesterol,Calculated 61 mg/dL (0-99); Triglycerides 133 mg/dL (<150)
[2018-01-09 06:19] LABS: Creatine Kinase 29 U/L (30-135)
[2018-01-09] MEDS ORDERED: LEVOTHYROXINE 50 MCG TAB PO SCH (06:30)
[2018-01-09 06:33] LABS: Creatine Kinase MB 0.3 ng/mL (0.0-2.4); Troponin I <0.012 ng/mL (0.000-0.034)
[2018-01-09] MEDS ORDERED: PANTOPRAZOLE 40 MG TABLET PO SCH (07:30)
[2018-01-09 07:49] VITALS: TEMP 97.5
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
[2018-01-09] MEDS ORDERED: CITALOPRAM HYDROBROMIDE 20 MG TAB PO SCH (09:00)
[2018-01-09] MEDS ORDERED: amLODIPine 5 MG TAB PO SCH (09:00)
[2018-01-09] MEDS ORDERED: ASPIRIN 325 MG TAB PO SCH (09:00)
[2018-01-09] MEDS ORDERED: levETIRAcetam 250 MG TAB PO SCH (09:00)
[2018-01-09] MEDS ORDERED: POTASSIUM CHLORIDE ER 20 MEQ TAB.ER PO SCH (09:00)
[2018-01-09] MEDS: CARVEDILOL 3.125 MG TAB PO SCH (09:38)
[2018-01-09] MEDS: CYCLOBENZAPRINE 10 MG TAB PO PRN (09:38)
[2018-01-09] MEDS: LORazepam 0.5 MG TAB PO SCH (09:38)
[2018-01-09] MEDS: levETIRAcetam IV 1,000 MG in SALINE 1 100ML.BAG IVPB SCH (09:39)
[2018-01-09 11:37] VITALS: BP 125/73; PULSE 60
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
[2018-01-09] MEDS ORDERED: levETIRAcetam 500 MG TAB PO SCH (21:00)
== END 2018-01-09 17:15 | disposition home or self-care (01) ==
LOC: EC 16:20 → 3OBS 20:27
PROVIDERS: ADMIT Family Medicine; ATTEND Family Medicine
DX: R07.89 Other chest pain (principal); G40.909 Epilepsy, unspecified, not intractable, without status epilepticus; F41.9 Anxiety disorder, unspecified; I10 Essential (primary) hypertension; F32.9 Major depressive disorder, single episode, unspecified; M19.90 Unspecified osteoarthritis, unspecified site; K21.9 Gastro-esophageal reflux disease without esophagitis; E78.5 Hyperlipidemia, unspecified; E03.9 Hypothyroidism, unspecified; K57.90 Diverticulosis of intestine, part unspecified, without perforation or abscess without bleeding; F43.9 Reaction to severe stress, unspecified; G43.909 Migraine, unspecified, not intractable, without status migrainosus; M54.30 Sciatica, unspecified side; Z68.36 Body mass index [BMI] 36.0-36.9, adult; E66.9 Obesity, unspecified; Z79.890 Hormone replacement therapy; Z79.899 Other long term (current) drug therapy; Z88.1 Allergy status to other antibiotic agents; Z88.3 Allergy status to other anti-infective agents; Z88.5 Allergy status to narcotic agent; Z88.2 Allergy status to sulfonamides; Z91.018 Allergy to other foods; Z90.49 Acquired absence of other specified parts of digestive tract; Z87.19 Personal history of other diseases of the digestive system; Z85.3 Personal history of malignant neoplasm of breast; Z98.84 Bariatric surgery status; Z96.653 Presence of artificial knee joint, bilateral; Z98.1 Arthrodesis status; Z95.0 Presence of cardiac pacemaker; Z81.8 Family history of other mental and behavioral disorders; Z82.49 Family history of ischemic heart disease and other diseases of the circulatory system; Z80.41 Family history of malignant neoplasm of ovary; Z80.1 Family history of malignant neoplasm of trachea, bronchus and lung
CPT/HCPCS: 99291 ×2; 96374 ×2; 96375; 96376; 36415; 93005; 83880; 80061; 80053; 82550 ×2; 82553 ×2; 83690; 83735; 84484 ×2; 85025; 85610; 85730; 81001; 87086; 87077; 87186; 71046; G0378 ×2; J2060; J1953 ×2

== ENCOUNTER 2018-01-15 00:06 | Emergency (ER) | payer MEDICARE ==
[2018-01-15] MEDS ORDERED: ACETAMINOPHEN TAB 500 MG TAB PO STA (00:53)
--- NOTE | 2018-01-15 01:18 | CT ---
EXAMINATION TYPE: CT brain april holley DATE OF EXAM: 01/15/2018 COMPARISON: 12/24/2017 HISTORY: Pt. fell and struck her head; evaluate for trauma CT DLP: 1456.40 mGycm Automated exposure control for dose reduction was used. TECHNIQUE: CT scan of the head and cervical spine are performed without contrast. FINDINGS: Ventricles of normal size. There is no mass effect nor midline shift. There is no sign of intracranial hemorrhage. The calvarium is intact. There is mucosal thickening in the right side sphe noid sinus. There is fusion surgery anteriorly from C4 to C7. Vertebra have normal alignment. Posterior elements are intact. Skull base is intact. There is narrowing at C3-4 disc space. I see no compression fractur e. 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 Multilevel fusion surgery. No fracture. No change. No acute intracranial abnormality. Sphenoid sinusitis with small fluid levels. No change. There is so me high attenuation within the right sphenoid sinus but could relate to calcific deposits. Brain is u nchanged compared to old exam.
--- NOTE | 2018-01-15 01:35 | ED ---
Head Injury HPI - General Source: patient Mode of arrival: wheelchair Limitations: no limitations <Brittaney Lindquist - Last Filed: 01/15/18 04:40> <Cristina Crocker - Last Filed: 01/15/18 07:44> - General Chief complaint: Head Injury Stated complaint: Fall, hit head Time Seen by Provider: 01/15/18 00:44 - History of Present Illness Initial comments: 67-year-old female patient presents to the emergency department today for evaluation after experiencing a fall with head injury. Patient reports that she was in the bathroom when she slipped and fell backwards striking the top of her head on the wall. Patient denies any loss of consciousness with this. Patient is reporting headache and neck pain. She denies any blurred or double vision. She denies any dizziness, weakness, nausea, vomiting, numbness, or tingling to her extremities. Patient denies any use of anticoagulant medication. She denies any other injuries. Patient denies any back pain, chest pain, shortness of breath, abdominal pain, nausea, vomiting, or difficulties with bowel movements or urination. (Brittaney Lindquist) - Related Data Home Medications Medication Instructions Recorded Confirmed Atorvastatin [Lipitor] 10 mg PO HS 09/21/13 01/08/18 Cyclobenzaprine [Flexeril] 10 mg PO BID PRN 09/21/13 01/08/18 LORazepam [Lorazepam] 0.5 mg PO BID 09/21/13 01/08/18 Citalopram Hydrobromide [CeleXA] 40 mg PO DAILY 08/29/17 01/08/18 Fycompa 4 Mg 4 mg PO HS 09/25/17 01/08/18 Ibuprofen [Motrin] 600 mg PO Q8HR PRN 09/25/17 01/08/18 Carvedilol [Coreg] 3.125 mg PO BID 11/11/17 01/08/18 Levothyroxine Sodium [Synthroid] 50 mcg PO DAILY 11/11/17 01/08/18 Meclizine [Antivert] 25 mg PO TID 11/11/17 01/08/18 Omeprazole 20 mg PO BID 11/11/17 01/08/18 Potassium Chloride ER [K-Dur 20] 20 meq PO DAILY 11/11/17 01/08/18 Zolpidem [Ambien] 10 mg PO HS PRN 11/11/17 01/08/18 buPROPion XL [Wellbutrin Xl] 150 mg PO HS 11/11/17 01/08/18 levETIRAcetam [Keppra] 1,000 mg PO HS 12/11/17 01/08/18 levETIRAcetam [Keppra] 1,250 mg PO QAM 12/11/17 01/08/18 amLODIPine [Norvasc] 5 mg PO DAILY 01/08/18 01/08/18 Allergies/Adverse reactions: Allergies Allergy/AdvReac Type Severity Reaction Status Date / Time ciprofloxacin [From Cipro] Allergy Unknown Verified 01/15/18 00:11 ciprofloxacin HCl Allergy Unknown Verified 01/15/18 00:11 [From Cipro] hydromorphone [From Dilaudid] Allergy Rash/Hives Verified 01/15/18 00:11 soy Allergy Anaphylaxis Verified 01/15/18 00:11 tetracycline [Tetracycline] Allergy Rash/Hives Verified 01/15/18 00:11 tioconazole [From Monistat 1] Allergy Rash/Hives Verified 01/15/18 00:11 codeine AdvReac Rash/Hives Verified 01/15/18 00:11 hydrocodone bitartrate AdvReac Rash/Hives Verified 01/15/18 00:11 [From Lortab] meperidine HCl [From Demerol] AdvReac Rash/Hives Verified 01/15/18 00:11 morphine AdvReac Rash/Hives Verified 01/15/18 00:11 propoxyphene napsylate AdvReac Rash/Hives Verified 01/15/18 00:11 [From Darvocet-N 100] Sulfa (Sulfonamide AdvReac Rash/Hives Verified 01/15/18 00:11 Antibiotics) Review of Systems ROS Other: All systems not noted in ROS Statement are negative. <Brittaney Lindquist - Last Filed: 01/15/18 04:40> ROS Other: All systems not noted in ROS Statement are negative. <Cristina Crocker - Last Filed: 01/15/18 07:44> ROS Statement: Those systems with pertinent positive or pertinent negative responses have been documented in the HPI. Past Medical History Past Medical History: GERD/Reflux, GI Bleed, Hyperlipidemia, Hypertension, Osteoarthritis (OA), Seizure Disorder, Thyroid Disorder Additional Past Medical History / Comment(s): history of depression History of Any Multi-Drug Resistant Organisms: ESBL Date of last positivie culture/infection: 01/08/18 MDRO Source:: ESBL URINE Past Surgical History: Back Surgery, Cholecystectomy, Heart Catheterization, Hernia Repair, Joint Replacement, Pacemaker, Tonsillectomy Additional Past Surgical History / Comment(s): LAP BAND INSERTED & REMOVED, GASTRIC SLEEVE (2016), GINI TOTAL KNEES, CERVICAL FUSION (2-7), BOWEL RESECTION. , INCISIONAL HERNIA'S. STATES SEVERAL HEART CATHS-NO STENTS (DONE AT [facility] & [facility]) Past Anesthesia/Blood Transfusion Reactions: No Reported Reaction Additional Past Anesthesia/Blood Transfusion Reaction / Comment(s): blood transfusion-no reaction Type of Cardiac Device: Permanent Pacemaker Device Placement Date:: 10/12/17 Past Psychological History: Anxiety, Depression Smoking Status: Never smoker Past Alcohol Use History: None Reported Past Drug Use History: None Reported - Past Family History Mother Family Medical History: Pulmonary Embolus Additional Family Medical History / Comment(s): Multiple TIA's. Father Family Medical History: Cancer Additional Family Medical History / Comment(s): Lung Sister(s) Family Medical History: Cancer Additional Family Medical History / Comment(s): OVARIAN CANCER <Brittaney Lindquist M - Last Filed: 01/15/18 04:40> General Exam Limitations: no limitations General appearance: alert, in no apparent distress, other (This is a well- developed, well-nourished adult female patient in no acute distress. Vital signs upon presentation are temperature 97.8F, pulse 74, respirations 18, blood pressure 140/83, pulse ox 95% on room air.) Head exam: Present: atraumatic, normocephalic, normal inspection Eye exam: Present: normal appearance, PERRL, EOMI. Absent: scleral icterus, conjunctival injection, nystagmus, periorbital swelling ENT exam: Present: normal exam, normal oropharynx, mucous membranes moist Neck exam: Present: normal inspection, full ROM, other (Nontender, no step-off, no deformity to firm midline palpation of the posterior cervical spine. Full range of motion without pain or limitation.). Absent: tenderness, meningismus, lymphadenopathy Respiratory exam: Present: normal lung sounds bilaterally. Absent: respiratory distress, wheezes, rales, rhonchi, stridor Cardiovascular Exam: Present: regular rate, normal rhythm, normal heart sounds. Absent: systolic murmur, diastolic murmur, rubs, gallop, clicks GI/Abdominal exam: Present: soft, normal bowel sounds. Absent: distended, tenderness, guarding, rebound, rigid Back exam: Present: normal inspection, other (Nontender, no step-off, no deformity to firm midline palpation of the thoracic and lumbar vertebrae. Full range of motion without pain or limitation.). Absent: vertebral tenderness Neurological exam: Present: alert, oriented X3, CN II-XII intact Psychiatric exam: Present: normal affect, normal mood Skin exam: Present: warm, dry, intact, normal color. Absent: rash <Brittaney Lindquist - Last Filed: 01/15/18 04:40> Vital Signs 01/15/18 01/15/18 00:07 01:51 Temperature 97.8 F 98.0 F Pulse Rate 74 69 Respiratory 18 16 Rate Blood Pressure 140/83 155/77 O2 Sat by Pulse 95 95 Oximetry Medical Decision Making - Radiology Data Radiology results: report reviewed, image reviewed <Brittaney Lindquist - Last Filed: 01/15/18 04:40> <Cristina Crocker - Last Filed: 01/15/18 07:44> - Medical Decision Making 67-year-old female patient presented to the emergency department today for evaluation after experiencing a fall with head injury at home. Physical examination was relatively unremarkable. Patient had no loss of consciousness. She is neurologically intact. I did perform computed tomography scan of the brain and C-spine without contrast, there are no acute abnormalities identified on the scans. I did inform patient of all results. She is feeling better upon reevaluation. She'll be discharged home to follow-up with her primary care physician for recheck in 1-2 days. Return parameters discussed in detail. She verbalizes understanding and agrees with this plan. (Brittaney Lindquist) I was available for consultation in the emergency department. The history and physical exam were done by the midlevel provider. I was consulted for this patient's care. I reviewed the case with the midlevel provider and based on their presentation of the patient, I agree with the assessment, medical decision making and plan of care as documented. (Cristina Crocker) - Radiology Data CT brain and C-spine without contrast was performed. Report was reviewed in its entirety. Impression by Dr. Wolff shows spondylotic changes in the cervical spine. Multilevel fusion surgery. No fracture. No change. No acute intracranial abnormalities. Sphenoid sinusitis a small fluid levels. No change. There is some high attenuation within the right sphenoid sinus but could relate calcific deposits. Parent is unchanged compared to old exam. ( Brittaney Lindquist) Disposition Is patient prescribed a controlled substance at d/c from ED?: No Time of Disposition: 01:35 <Brittaney Lindquist - Last Filed: 01/15/18 04:40> <Cristina Crocker - Last Filed: 01/15/18 07:44> Clinical Impression: Head injury Disposition: HOME SELF-CARE Condition: Good Instructions: Head Injury (ED) Additional Instructions: Monitor for signs or symptoms of worsening head injury including but not limited to worsening headaches, dizziness, weakness, confusion, or vomiting. Follow-up through primary care physician for recheck in 1-2 days. Return here immediately for any new, worsening, or concerning symptoms. Referrals: Cade Menendez DO [Primary Care Provider] - 1-2 days
[2018-01-15 01:54] VITALS: BP 155/77; PULSE 69; RESP 16; TEMP 98
== END 2018-01-15 01:54 | disposition home or self-care (01) ==
LOC: EC 00:06
DX: S09.90XA Unspecified injury of head, initial encounter (principal); R51 Headache; M54.2 Cervicalgia; K21.9 Gastro-esophageal reflux disease without esophagitis; E78.5 Hyperlipidemia, unspecified; I10 Essential (primary) hypertension; F41.9 Anxiety disorder, unspecified; G40.909 Epilepsy, unspecified, not intractable, without status epilepticus; F32.9 Major depressive disorder, single episode, unspecified; Z79.899 Other long term (current) drug therapy; Z88.1 Allergy status to other antibiotic agents; Z88.5 Allergy status to narcotic agent; Z88.2 Allergy status to sulfonamides; Z91.018 Allergy to other foods; Z95.5 Presence of coronary angioplasty implant and graft; Z95.0 Presence of cardiac pacemaker; Z96.653 Presence of artificial knee joint, bilateral; W01.198A Fall on same level from slipping, tripping and stumbling with subsequent striking against other object, initial encounter; Y92.89 Other specified places as the place of occurrence of the external cause
CPT/HCPCS: 70450; 72125; 99283

== ENCOUNTER 2018-01-17 16:23 | Emergency (ER) | payer MEDICARE ==
--- NOTE | 2018-01-17 17:01 | ED ---
General Adult HPI - General Chief complaint: Fall Stated complaint: Fall-head injury Time Seen by Provider: 01/17/18 16:40 Source: patient Mode of arrival: ambulatory Limitations: no limitations - History of Present Illness Initial comments: Patient is a 67-year-old female presents with the chief complaint multiple falls and head and neck pain. The patient states that over the last 3 days or so she has had frequent falls. She states that she feels somewhat lightheaded but does not pass out. She states that she does not feel dizzy prior to falling. The patient states that she has seen her neurologist recently for vertigo, and states that she normally veers to the left when she walks which is not a new problem for her. Patient also states that she was recently started on Norvasc for hypertension. Today she admits to dysuria. No other complaints. - Related Data Home Medications Medication Instructions Recorded Confirmed Atorvastatin [Lipitor] 10 mg PO HS 09/21/13 01/08/18 Cyclobenzaprine [Flexeril] 10 mg PO BID PRN 09/21/13 01/08/18 LORazepam [Lorazepam] 0.5 mg PO BID 09/21/13 01/08/18 Citalopram Hydrobromide [CeleXA] 40 mg PO DAILY 08/29/17 01/08/18 Fycompa 4 Mg 4 mg PO HS 09/25/17 01/08/18 Ibuprofen [Motrin] 600 mg PO Q8HR PRN 09/25/17 01/08/18 Carvedilol [Coreg] 3.125 mg PO BID 11/11/17 01/08/18 Levothyroxine Sodium [Synthroid] 50 mcg PO DAILY 11/11/17 01/08/18 Meclizine [Antivert] 25 mg PO TID 11/11/17 01/08/18 Omeprazole 20 mg PO BID 11/11/17 01/08/18 Potassium Chloride ER [K-Dur 20] 20 meq PO DAILY 11/11/17 01/08/18 Zolpidem [Ambien] 10 mg PO HS PRN 11/11/17 01/08/18 buPROPion XL [Wellbutrin Xl] 150 mg PO HS 11/11/17 01/08/18 levETIRAcetam [Keppra] 1,000 mg PO HS 12/11/17 01/08/18 levETIRAcetam [Keppra] 1,250 mg PO QAM 12/11/17 01/08/18 amLODIPine [Norvasc] 5 mg PO DAILY 01/08/18 01/08/18 Previous Rx's Medication Instructions Recorded Cephalexin [Keflex] 500 mg PO Q12HR #14 cap 01/17/18 Allergies Allergy/AdvReac Type Severity Reaction Status Date / Time ciprofloxacin [From Cipro] Allergy Unknown Verified 01/17/18 16:35 ciprofloxacin HCl Allergy Unknown Verified 01/17/18 16:35 [From Cipro] hydromorphone [From Dilaudid] Allergy Rash/Hives Verified 01/17/18 16:35 soy Allergy Anaphylaxis Verified 01/17/18 16:35 tetracycline [Tetracycline] Allergy Rash/Hives Verified 01/17/18 16:35 tioconazole [From Monistat 1] Allergy Rash/Hives Verified 01/17/18 16:35 codeine AdvReac Rash/Hives Verified 01/17/18 16:35 hydrocodone bitartrate AdvReac Rash/Hives Verified 01/17/18 16:35 [From Lortab] meperidine HCl [From Demerol] AdvReac Rash/Hives Verified 01/17/18 16:35 morphine AdvReac Rash/Hives Verified 01/17/18 16:35 propoxyphene napsylate AdvReac Rash/Hives Verified 01/17/18 16:35 [From Darvocet-N 100] Sulfa (Sulfonamide AdvReac Rash/Hives Verified 01/17/18 16:35 Antibiotics) Review of Systems ROS Statement: Those systems with pertinent positive or pertinent negative responses have been documented in the HPI. ROS Other: All systems not noted in ROS Statement are negative. Eyes: Reports: eye pain (Right) Neurological: Reports: vertigo Past Medical History Past Medical History: GERD/Reflux, GI Bleed, Hyperlipidemia, Hypertension, Osteoarthritis (OA), Seizure Disorder, Thyroid Disorder Additional Past Medical History / Comment(s): history of depression History of Any Multi-Drug Resistant Organisms: ESBL Date of last positivie culture/infection: 01/08/18 MDRO Source:: ESBL URINE Past Surgical History: Back Surgery, Cholecystectomy, Heart Catheterization, Hernia Repair, Joint Replacement, Pacemaker, Tonsillectomy Additional Past Surgical History / Comment(s): LAP BAND INSERTED & REMOVED, GASTRIC SLEEVE (2016), GINI TOTAL KNEES, CERVICAL FUSION (2-7), BOWEL RESECTION. , INCISIONAL HERNIA'S. STATES SEVERAL HEART CATHS-NO STENTS (DONE AT [facility] & [facility]) Past Anesthesia/Blood Transfusion Reactions: No Reported Reaction Additional Past Anesthesia/Blood Transfusion Reaction / Comment(s): blood transfusion-no reaction Type of Cardiac Device: Permanent Pacemaker Device Placement Date:: 10/12/17 Past Psychological History: Anxiety, Depression Smoking Status: Never smoker Past Alcohol Use History: None Reported Past Drug Use History: None Reported - Past Family History Mother Family Medical History: Pulmonary Embolus Additional Family Medical History / Comment(s): Multiple TIA's. Father Family Medical History: Cancer Additional Family Medical History / Comment(s): Lung Sister(s) Family Medical History: Cancer Additional Family Medical History / Comment(s): OVARIAN CANCER General Exam Limitations: no limitations General appearance: alert, in no apparent distress Head exam: Present: atraumatic, normocephalic Eye exam: Present: normal appearance, PERRL ENT exam: Present: normal exam, mucous membranes moist, TM's normal bilaterally (Wax impaction right ear) Neck exam: Present: normal inspection Respiratory exam: Present: normal lung sounds bilaterally. Absent: respiratory distress, wheezes Cardiovascular Exam: Present: regular rate, normal rhythm GI/Abdominal exam: Present: soft. Absent: distended, tenderness Rectal exam: Present: deferred Extremities exam: Present: normal inspection Back exam: Present: normal inspection. Absent: CVA tenderness (R), CVA tenderness (L) Neurological exam: Present: alert, oriented X3, CN II-XII intact Psychiatric exam: Present: normal affect, normal mood Skin exam: Present: warm, dry, intact Course Vital Signs 01/17/18 16:32 Temperature 97.6 F Pulse Rate 80 Respiratory 18 Rate Blood Pressure 141/78 O2 Sat by Pulse 95 Oximetry Medical Decision Making - Medical Decision Making Patient presents with a chief complaint multiple falls. On initial evaluation, vitals are stable, patient is in no acute distress. Patient to be evaluated with basic labs including cardiac enzymes, urinalysis, and chest x-ray. They' ll be sent for computed tomography scan of the head and neck without contrast. 7:26 PM Lab evaluation of this patient is unremarkable. Urinalysis shows evidence of infection. Urine culture sent. Patient given a dose of Rocephin prior to discharge from the ED. Patient written a prescription for Keflex and instructed to follow up with primary care in 1-2 days, return to the emergency department symptoms worsen or change. CT scans of the head and neck were unremarkable, chest x-ray shows no acute process. All lab results and imaging discussed with the patient. She is stable agreeable with discharge. - Lab Data Result diagrams: 01/17/18 17:09 01/17/18 17:09 Lab Results 01/17/18 01/17/18 01/17/18 Range/Units 17:09 17:09 17:09 WBC 6.2 (3.8-10.6) k/uL RBC 5.03 (3.80-5.40) m/uL Hgb 12.2 (11.4-16.0) gm/dL Hct 39.6 (34.0-46.0) % MCV 78.8 L (80.0-100.0) fL MCH 24.3 L (25.0-35.0) pg MCHC 30.8 L (31.0-37.0) g/dL RDW 14.7 (11.5-15.5) % Plt Count 337 (150-450) k/uL Neutrophils % 47 % Lymphocytes % 37 % Monocytes % 7 % Eosinophils % 6 % Basophils % 1 % Neutrophils # 2.9 (1.3-7.7) k/uL Lymphocytes # 2.3 (1.0-4.8) k/uL Monocytes # 0.4 (0-1.0) k/uL Eosinophils # 0.4 (0-0.7) k/uL Basophils # 0.1 (0-0.2) k/uL Hypochromasia Moderate Sodium 142 (137-145) mmol/L Potassium 4.4 (3.5-5.1) mmol/L Chloride 109 H (98-107) mmol/L Carbon Dioxide 25 (22-30) mmol/L Anion Gap 8 mmol/L BUN 14 (7-17) mg/dL Creatinine 0.72 (0.52-1.04) mg/dL Est GFR (CKD-EPI)AfAm >90 (>60 ml/min/1.73 sqM) Est GFR (CKD-EPI)NonAf 87 (>60 ml/min/1.73 sqM) Glucose 150 H (74-99) mg/dL Calcium 9.4 (8.4-10.2) mg/dL Magnesium 2.4 H (1.6-2.3) mg/dL Total Bilirubin 0.5 (0.2-1.3) mg/dL AST 31 (14-36) U/L ALT 22 (9-52) U/L Alkaline Phosphatase 116 (38-126) U/L Troponin I (0.000-0.034) ng/mL NT-Pro-B Natriuret Pep 47 pg/mL Total Protein 7.0 (6.3-8.2) g/dL Albumin 4.1 (3.5-5.0) g/dL Urine Color Urine Appearance (Clear) Urine pH (5.0-8.0) Ur Specific [place] (1.001-1.035) Urine Protein (Negative) Urine Glucose (UA) (Negative) Urine Ketones (Negative) Urine Blood (Negative) Urine Nitrite (Negative) Urine Bilirubin (Negative) Urine Urobilinogen (<2.0) mg/dL Ur Leukocyte Esterase (Negative) Urine RBC (0-5) /hpf Urine WBC (0-5) /hpf Ur Squamous Epith Cells (0-4) /hpf Urine Bacteria (None) /hpf Urine Mucus (None) /hpf 01/17/18 01/17/18 Range/Units 17:09 Unknown WBC (3.8-10.6) k/uL RBC (3.80-5.40) m/uL Hgb (11.4-16.0) gm/dL Hct (34.0-46.0) % MCV (80.0-100.0) fL MCH (25.0-35.0) pg MCHC (31.0-37.0) g/dL RDW (11.5-15.5) % Plt Count (150-450) k/uL Neutrophils % % Lymphocytes % % Monocytes % % Eosinophils % % Basophils % % Neutrophils # (1.3-7.7) k/uL Lymphocytes # (1.0-4.8) k/uL Monocytes # (0-1.0) k/uL Eosinophils # (0-0.7) k/uL Basophils # (0-0.2) k/uL Hypochromasia Sodium (137-145) mmol/L Potassium (3.5-5.1) mmol/L Chloride (98-107) mmol/L Carbon Dioxide (22-30) mmol/L Anion Gap mmol/L BUN (7-17) mg/dL Creatinine (0.52-1.04) mg/dL Est GFR (CKD-EPI)AfAm (>60 ml/min/1.73 sqM) Est GFR (CKD-EPI)NonAf (>60 ml/min/1.73 sqM) Glucose (74-99) mg/dL Calcium (8.4-10.2) mg/dL Magnesium (1.6-2.3) mg/dL Total Bilirubin (0.2-1.3) mg/dL AST (14-36) U/L ALT (9-52) U/L Alkaline Phosphatase (38-126) U/L Troponin I <0.012 (0.000-0.034) ng/mL NT-Pro-B Natriuret Pep pg/mL Total Protein (6.3-8.2) g/dL Albumin (3.5-5.0) g/dL Urine Color Yellow Urine Appearance Cloudy H (Clear) Urine pH 5.5 (5.0-8.0) Ur Specific [place] 1.018 (1.001-1.035) Urine Protein Trace H (Negative) Urine Glucose (UA) Negative (Negative) Urine Ketones Negative (Negative) Urine Blood Small H (Negative) Urine Nitrite Positive H (Negative) Urine Bilirubin Negative (Negative) Urine Urobilinogen <2.0 (<2.0) mg/dL Ur Leukocyte Esterase Large H (Negative) Urine RBC 22 H (0-5) /hpf Urine WBC >182 H (0-5) /hpf Ur Squamous Epith Cells <1 (0-4) /hpf Urine Bacteria Many H (None) /hpf Urine Mucus Occasional H (None) /hpf Disposition Clinical Impression: Fall, UTI (urinary tract infection) Disposition: HOME SELF-CARE Condition: Good Instructions: Fall Prevention for Older Adults (ED), Urinary Tract Infection in Women (ED) Is patient prescribed a controlled substance at d/c from ED?: No Referrals: Cade Menendez DO [Primary Care Provider] - 1-2 days
[2018-01-17 17:27] LABS: Basophils # (A) 0.1 k/uL (0-0.2); Basophils % (A) 1 %; Eosinophils # (A) 0.4 k/uL (0-0.7); Eosinophils % (A) 6 %; HCT 39.6 % (34.0-46.0); HGB 12.2 gm/dL (11.4-16.0); Hypochromasia Moderate; Lymphocytes # (A) 2.3 k/uL (1.0-4.8); Lymphocytes % (A) 37 %; MCH 24.3 pg (25.0-35.0); MCHC 30.8 g/dL (31.0-37.0); MCV 78.8 fL (80.0-100.0); Mean Platelet Volume 6.8; Monocytes # (A) 0.4 k/uL (0-1.0); Monocytes % (A) 7 %; Neutrophils # (A) 2.9 k/uL (1.3-7.7); Neutrophils % (A) 47 %; Platelet Count 337 k/uL (150-450); RBC 5.03 m/uL (3.80-5.40); RDW 14.7 % (11.5-15.5); WBC 6.2 k/uL (3.8-10.6)
[2018-01-17 17:32] LABS: ALT 22 U/L (9-52); AST 31 U/L (14-36); Albumin 4.1 g/dL (3.5-5.0); Alkaline Phosphatase 116 U/L (38-126); Anion Gap 8 mmol/L; Blood Urea Nitrogen 14 mg/dL (7-17); Calcium 9.4 mg/dL (8.4-10.2); Carbon Dioxide 25 mmol/L (22-30); Chloride 109 mmol/L (98-107); Glucose 150 mg/dL (74-99); Magnesium 2.4 mg/dL (1.6-2.3); Potassium 4.4 mmol/L (3.5-5.1); Sodium 142 mmol/L (137-145); Total Bilirubin 0.5 mg/dL (0.2-1.3)
--- NOTE | 2018-01-17 17:45 | CT ---
EXAMINATION TYPE: CT brain april wo con DATE OF EXAM: 01/17/2018 COMPARISON: 01/15/2018 HISTORY: Fall injury x1 day ago CT DLP: 1301.5 mGycm, Automated exposure control for dose reduction was used. CONTRAST: None CT of the brain is performed utilizing 3 mm thick sections through the posterior fossa and 3 mm thick sections through the remaining calvarium. Study is performed within 24 hours of arrival to the hospital. No abnormal hyperdensity is present to suggest an acute intracranial hemorrhage. No mass lesion is evident. No acute infarcts are evident. Ventricles and sulci are appropriate for the patient age. There is an air-fluid level within the mid sphenoid sinus hyperostosis frontalis internus is present, normal variant. IMPRESSIONS: 1. Normal CT brain. CT cervical spine. COMPARISON: None CT of the cervical spine is performed in the axial plane at 2 mm thick sections. Reconstructed image s in the coronal, and sagittal plane are reviewed on the computer. No acute fractures are evident. Vertebral body alignment is normal. There is loss of disc height through the anterior cervical fusion. Narrowing of disc height is also n oted C3-4 and C7-T1. There is an anterior cervical fusion C4-C7. Vertebral body heights are preserved. No spinal canal stenosis is evident. Uncovertebral joint hypertrophy on the right at C3-4 has moderate to severe right foraminal stenosis. IMPRESSIONS: 1. No acute osseous abnormality. 2. Postsurgical fusion
--- NOTE | 2018-01-17 17:46 | XR ---
EXAMINATION TYPE: XR chest 2V DATE OF EXAM: 01/17/2018 COMPARISON: 01/08/2018 INDICATION: Pain and hypertension fall TECHNIQUE: Frontal and lateral views of the chest are obtained. FINDINGS: The heart size is normal. The pulmonary vasculature is normal. The lungs are clear. Electronic device overlies left chest. No pneumothorax is evident. IMPRESSION: 1. No acute pulmonary process.
[2018-01-17 18:37] LABS: Appearance,Urine Cloudy (Clear); Bacteria,Urine Many /hpf; Bilirubin,Urine Negative (Negative); Blood,Urine Small (Negative); Color,Urine Yellow; Glucose,Urine (UA) Negative (Negative); Ketones,Urine Negative (Negative); Leukocyte Esterase,Urine Large (Negative); Mucus,Urine Occasional /hpf; Nitrite,Urine Positive (Negative); PH, Urine 5.5 (5.0-8.0); Protein,Urine Trace (Negative); RBC,Urine 22 /hpf (0-5); Specific Gravity,Urine 1.018 (1.001-1.035); Squamous Epithelial Cell,Urine <1 /hpf (0-4); Urobilinogen,Urine <2.0 mg/dL (<2.0); WBC,Urine >182 /hpf (0-5)
[2018-01-17 19:38] VITALS: BP 153/88; PULSE 69; RESP 16; TEMP 98
== END 2018-01-17 20:24 | disposition home or self-care (01) ==
LOC: EC 16:23
DX: N39.0 Urinary tract infection, site not specified (principal); S09.90XA Unspecified injury of head, initial encounter; M54.2 Cervicalgia; R29.6 Repeated falls; K21.9 Gastro-esophageal reflux disease without esophagitis; E78.5 Hyperlipidemia, unspecified; I10 Essential (primary) hypertension; G40.909 Epilepsy, unspecified, not intractable, without status epilepticus; F41.9 Anxiety disorder, unspecified; F32.9 Major depressive disorder, single episode, unspecified; Z79.02 Long term (current) use of antithrombotics/antiplatelets; Z79.899 Other long term (current) drug therapy; Z88.1 Allergy status to other antibiotic agents; Z88.5 Allergy status to narcotic agent; Z88.2 Allergy status to sulfonamides; Z95.0 Presence of cardiac pacemaker; Z95.5 Presence of coronary angioplasty implant and graft; W18.09XA Striking against other object with subsequent fall, initial encounter; Y92.009 Unspecified place in unspecified non-institutional (private) residence as the place of occurrence of the external cause
CPT/HCPCS: 36415; 93005; 83880; 80053; 83735; 84484; 85025; 81001; 87086; 71046; 72125; 70450; 99284; 96365; J0696; 87077; 87186

== ENCOUNTER 2018-05-21 13:02 | Emergency (ER) | payer MEDICARE ==
[2018-05-21 13:13] VITALS: TEMP 97.7
[2018-05-21 13:51] LABS: Anisocytosis Slight; Basophils # (A) 0.1 k/uL (0-0.2); Basophils % (A) 1 %; Eosinophils # (A) 0.2 k/uL (0-0.7); Eosinophils % (A) 5 %; HCT 36.8 % (34.0-46.0); HGB 11.5 gm/dL (11.4-16.0); Hypochromasia Slight; Lymphocytes # (A) 1.8 k/uL (1.0-4.8); Lymphocytes % (A) 37 %; MCH 22.1 pg (25.0-35.0); MCHC 31.3 g/dL (31.0-37.0); MCV 70.5 fL (80.0-100.0); Mean Platelet Volume 6.6; Microcytosis Moderate; Monocytes # (A) 0.3 k/uL (0-1.0); Monocytes % (A) 7 %; Neutrophils # (A) 2.3 k/uL (1.3-7.7); Neutrophils % (A) 48 %; Platelet Count 314 k/uL (150-450); RBC 5.21 m/uL (3.80-5.40); RDW 16.1 % (11.5-15.5); WBC 4.8 k/uL (3.8-10.6)
[2018-05-21 14:06] LABS: INR 0.9 (<1.2); Partial Thromboplastin Time 23.8 sec (22.0-30.0); Prothrombin Time 9.7 sec (9.0-12.0)
[2018-05-21 14:07] LABS: ALT 32 U/L (9-52); AST 21 U/L (14-36); Albumin 3.9 g/dL (3.5-5.0); Alkaline Phosphatase 131 U/L (38-126); Anion Gap 7 mmol/L; Blood Urea Nitrogen 8 mg/dL (7-17); Carbon Dioxide 26 mmol/L (22-30); Chloride 108 mmol/L (98-107); Glucose 95 mg/dL (74-99); Magnesium 2.3 mg/dL (1.6-2.3); Potassium 3.7 mmol/L (3.5-5.1); Sodium 141 mmol/L (137-145); Total Bilirubin 0.8 mg/dL (0.2-1.3); Total Protein 6.9 g/dL (6.3-8.2)
[2018-05-21 14:18] LABS: Creatine Kinase 30 U/L (30-135)
[2018-05-21 14:31] LABS: Creatine Kinase MB <0.2 ng/mL (0.0-2.4); Troponin I <0.012 ng/mL (0.000-0.034)
--- NOTE | 2018-05-21 14:36 | CT ---
EXAMINATION TYPE: CT brain april holley DATE OF EXAM: 05/21/2018 COMPARISON: 01/17/2018 HISTORY: 68-year-old female fell last night. Landed face first. Bruising left eye area, pain. CT DLP: 985 mGycm Automated exposure control for dose reduction was used. Technique: Examination of the head was done in axial plane without intravenous contrast. Coronal and sagittal reconstructions performed. CT of the cervical spine was obtained in axial plane without intravenous injection of contrast mater ial. Coronal and sagittal reformatted images were obtained from the axial views for evaluation of f ractures, spinal alignment and canal. FINDINGS: Head: There is no evidence of acute intracranial hemorrhage, acute ischemic changes, mass, mass-effect, or extra-axial fluid collection. There is no effacement of cerebral sulci or basal subarachnoid cister ns. There is no hydrocephalus. There is no midline shift. Rodriguez-white matter distinction is preserv ed. Partial opacification right sphenoid sinus unchanged. Facial bones reported separately. Mastoid air c ells well pneumatized. No calvarial fracture. Some normal variation of hyperostosis frontalis interna . Cervical spine: No craniocervical junction and midbody, predental space widening, or prevertebral soft tissue swellin g. Degenerative changes at the C1 dens extubation. Post surgical changes of C4-C7 ACDF. Trace grade 1 retrolisthesis above the fusion at C3-C4 and trace grade 1 anterolisthesis below the fusion at C7-T1. Posterior osteophytic ridging present at the fused levels. This likely contribute to mild narrowing o f the spinal canal at C6-7. Degenerative disc disease with disc osteophyte complex at C3-C4 likely contributes to mild spinal can al stenosis. No acute fracture of the cervical spine. At C3-C4, there is moderate right neuroforaminal stenosis. Along the fused levels, there is variable mild or moderate neuroforaminal stenosis. Pacer leads are noted. Sagittal and coronal reformatted images confirm above findings. COMBINED IMPRESSION: 1. No acute intracranial abnormality seen. 2. Facial bones reported separately. 3. No acute fracture of the cervical spine. 4. C4-C7 ACDF. Some degenerative changes above and below the fusion at C3-C4 and C7-T1 have slightly progressed from 01/17/2018 with new trace spondylolisthesis.
--- NOTE | 2018-05-21 14:39 | CT ---
EXAMINATION TYPE: CT facial bones wo con DATE OF EXAM: 05/21/2018 COMPARISON: 02/05/2016 HISTORY: 68-year-old female with pain, fell last night. Landed face first. Bruising lt eye area TECHNIQUE: Contiguous axial scanning of the facial bones without IV contrast. Coronal reconstruction performed. CT DLP: 985 mGycm Automated exposure control for dose reduction was used. FINDINGS: Stable partial opacification of the right sphenoid sinus with reactive bony thickening of the sinus w alls. Internal hyperdense material is also unchanged suggesting inspissated mucus. Orbits and globes are symmetric and appear intact. No facial bone fracture seen. No acute nasal bone fracture seen. The pterygoid plates and zygomatic arches appear intact. The mandible remains intact. Mild mucosal thickening within the bilateral maxillary sinuses. IMPRESSION: 1. NO ACUTE FACIAL BONE FRACTURE. NO ACUTE ORBITAL FRACTURE. GLOBES APPEAR SYMMETRIC. 2. CHRONIC RIGHT SPHENOID SINUS DISEASE WITH STABLE INTERNAL HYPERDENSITY PROBABLY REPRESENTING INSPI SSATED MUCUS.
--- NOTE | 2018-05-21 14:48 | XR ---
EXAMINATION TYPE: XR chest 2V DATE OF EXAM: 05/21/2018 COMPARISON: 01/17/2018 HISTORY: 68-year-old female with chest pain. TECHNIQUE: AP and lateral views FINDINGS: Left anterior chest wall pacemaker generator with right atrial and right ventricular leads. Heart nor mal size. Mild elongation thoracic aorta. Accentuated lower thoracic kyphosis. Slightly low lung volu mes with crowded vascular markings. Partially visualized ACDF hardware. No consolidation or pleural e ffusion. IMPRESSION: Hypoventilatory changes without acute cardiopulmonary process.
[2018-05-21 14:57] LABS: Appearance,Urine Clear (Clear); Bilirubin,Urine Negative (Negative); Blood,Urine Negative (Negative); Color,Urine Light Yellow; Glucose,Urine (UA) Negative (Negative); Ketones,Urine Negative (Negative); Leukocyte Esterase,Urine Negative (Negative); Nitrite,Urine Negative (Negative); Protein,Urine Negative (Negative); Specific Gravity,Urine 1.005 (1.001-1.035); Urobilinogen,Urine <2.0 mg/dL (<2.0)
--- NOTE | 2018-05-21 16:47 | ED ---
General Adult HPI - General Chief complaint: Chest Pain Stated complaint: Chest pain Time Seen by Provider: 05/21/18 13:26 Source: patient, RN notes reviewed Mode of arrival: ambulatory Limitations: no limitations - History of Present Illness Initial comments: Patient 68-year-old female presenting to the emergency room today with a chief complaint of a fall that occurred yesterday. Patient does admit that she tripped when she went to the bathroom. She believes she may have slipped on the rug. She does not remember the fall is unsure exactly how she fell. She does admit to some facial pain in the right side. Patient states that she's also had some chest pain that started yesterday. She describes it as a tightness. She denies any other complaints or symptoms at this time. Patient denies any recent fever, chills, shortness of breath, back pain, abdominal pain , nausea or vomiting, numbness or tingling, dysuria or hematuria, constipation or diarrhea, visual changes, or any other complaints. - Related Data Home Medications Medication Instructions Recorded Confirmed Atorvastatin [Lipitor] 10 mg PO HS 09/21/13 05/21/18 LORazepam [Lorazepam] 0.5 mg PO BID 09/21/13 05/21/18 Fycompa 4 Mg 4 mg PO HS 09/25/17 05/21/18 Ibuprofen [Motrin] 600 mg PO Q8HR PRN 09/25/17 05/21/18 Carvedilol [Coreg] 3.125 mg PO BID 11/11/17 05/21/18 Levothyroxine Sodium [Synthroid] 50 mcg PO DAILY 11/11/17 05/21/18 Meclizine [Antivert] 25 mg PO TID 11/11/17 05/21/18 Omeprazole 20 mg PO BID 11/11/17 05/21/18 Potassium Chloride ER [K-Dur 20] 20 meq PO BID 11/11/17 05/21/18 Zolpidem [Ambien] 10 mg PO HS PRN 11/11/17 05/21/18 buPROPion XL [Wellbutrin Xl] 150 mg PO HS 11/11/17 05/21/18 levETIRAcetam [Keppra] 1,000 mg PO HS 12/11/17 05/21/18 amLODIPine [Norvasc] 5 mg PO DAILY 01/08/18 05/21/18 levETIRAcetam [Keppra] 500 mg PO QAM 05/21/18 05/21/18 Allergies Allergy/AdvReac Type Severity Reaction Status Date / Time ciprofloxacin [From Cipro] Allergy Unknown Verified 05/21/18 14:17 ciprofloxacin HCl Allergy Unknown Verified 05/21/18 14:17 [From Cipro] hydromorphone [From Dilaudid] Allergy Rash/Hives Verified 05/21/18 14:17 soy Allergy Anaphylaxis Verified 05/21/18 14:17 tetracycline [Tetracycline] Allergy Rash/Hives Verified 05/21/18 14:17 tioconazole [From Monistat 1] Allergy Rash/Hives Verified 05/21/18 14:17 codeine AdvReac Rash/Hives Verified 05/21/18 14:17 hydrocodone bitartrate AdvReac Rash/Hives Verified 05/21/18 14:17 [From Lortab] meperidine HCl [From Demerol] AdvReac Rash/Hives Verified 05/21/18 14:17 morphine AdvReac Rash/Hives Verified 05/21/18 14:17 propoxyphene napsylate AdvReac Rash/Hives Verified 05/21/18 14:17 [From Darvocet-N 100] Sulfa (Sulfonamide AdvReac Rash/Hives Verified 05/21/18 14:17 Antibiotics) Review of Systems ROS Statement: Those systems with pertinent positive or pertinent negative responses have been documented in the HPI. ROS Other: All systems not noted in ROS Statement are negative. Past Medical History Past Medical History: GERD/Reflux, GI Bleed, Hyperlipidemia, Hypertension, Osteoarthritis (OA), Seizure Disorder, Thyroid Disorder Additional Past Medical History / Comment(s): history of depression History of Any Multi-Drug Resistant Organisms: ESBL Date of last positivie culture/infection: 01/08/18 MDRO Source:: ESBL URINE Past Surgical History: Back Surgery, Cholecystectomy, Heart Catheterization, Hernia Repair, Joint Replacement, Pacemaker, Tonsillectomy Additional Past Surgical History / Comment(s): LAP BAND INSERTED & REMOVED, GASTRIC SLEEVE (2016), GINI TOTAL KNEES, CERVICAL FUSION (2-7), BOWEL RESECTION. , INCISIONAL HERNIA'S. STATES SEVERAL HEART CATHS-NO STENTS (DONE AT [facility]) Past Anesthesia/Blood Transfusion Reactions: No Reported Reaction Additional Past Anesthesia/Blood Transfusion Reaction / Comment(s): blood transfusion-no reaction Type of Cardiac Device: Permanent Pacemaker Device Placement Date:: 10/12/17 Past Psychological History: Anxiety, Depression Smoking Status: Never smoker Past Alcohol Use History: None Reported Past Drug Use History: None Reported - Past Family History Mother Family Medical History: Pulmonary Embolus Additional Family Medical History / Comment(s): Multiple TIA's. Father Family Medical History: Cancer Additional Family Medical History / Comment(s): Lung Sister(s) Family Medical History: Cancer Additional Family Medical History / Comment(s): OVARIAN CANCER General Exam - General Exam Comments Initial Comments: General: The patient is awake and alert, in no distress, and does not appear acutely ill. Eye: Pupils are equal, round and reactive to light, extra-ocular movements are intact. No nystagmus. There is normal conjunctiva bilaterally. No signs of icterus. Ears, nose, mouth and throat: There are moist mucous membranes and no oral lesions. Neck: The neck is supple, there is no tenderness or JVD. Cardiovascular: There is a regular rate and rhythm. No murmur, rub or gallop is appreciated. Respiratory: Lungs are clear to auscultation, respirations are non-labored, breath sounds are equal. No wheezes, stridor, rales, or rhonchi. Gastrointestinal: Abdomen soft on palpation nontender. Musculoskeletal: Normal ROM, no tenderness. Strength 5/5. Sensation intact. Pulses equal bilaterally 2+. Neurological: A&O x 3. CN II-XII intact, There are no obvious motor or sensory deficits. Coordination appears grossly intact. Speech is normal. Skin: Skin is warm and dry and no rashes or lesions are noted. Psychiatric: Cooperative, appropriate mood & affect, normal judgment. Limitations: no limitations Course Vital Signs 05/21/18 13:05 Temperature 97.7 F Pulse Rate 64 Respiratory 16 Rate Blood Pressure 159/97 O2 Sat by Pulse 97 Oximetry EKG Findings - EKG Comments: EKG Findings:: EKG performed at 1333: Shows sinus bradycardia 56 bpm. TX interval 194. QRS 82. QT/QTc 422/407. No acute ST changes. Compared to previous EKG on 01/17/2018. Medical Decision Making - Medical Decision Making CT of the head preliminary been reviewed does show some evidence for some sinus disease no acute abnormalities. Scrotal degenerative changes of the cervical spine. Patient's EKG reviewed does shows No Acute ST changes. Initial set of cardiac enzymes are negative. Patient will be admitted to the hospital for serial enzymes and cardiology consult. - Lab Data Result diagrams: 05/21/18 13:17 05/21/18 13:17 Lab Results 05/21/18 05/21/18 05/21/18 Range/Units 13:17 13:17 13:17 WBC 4.8 (3.8-10.6) k/uL RBC 5.21 (3.80-5.40) m/uL Hgb 11.5 (11.4-16.0) gm/dL Hct 36.8 (34.0-46.0) % MCV 70.5 L (80.0-100.0) fL MCH 22.1 L (25.0-35.0) pg MCHC 31.3 (31.0-37.0) g/dL RDW 16.1 H (11.5-15.5) % Plt Count 314 (150-450) k/uL Neutrophils % 48 % Lymphocytes % 37 % Monocytes % 7 % Eosinophils % 5 % Basophils % 1 % Neutrophils # 2.3 (1.3-7.7) k/uL Lymphocytes # 1.8 (1.0-4.8) k/uL Monocytes # 0.3 (0-1.0) k/uL Eosinophils # 0.2 (0-0.7) k/uL Basophils # 0.1 (0-0.2) k/uL Hypochromasia Slight Anisocytosis Slight Microcytosis Moderate PT (9.0-12.0) sec INR (<1.2) APTT (22.0-30.0) sec Sodium 141 (137-145) mmol/L Potassium 3.7 (3.5-5.1) mmol/L Chloride 108 H (98-107) mmol/L Carbon Dioxide 26 (22-30) mmol/L Anion Gap 7 mmol/L BUN 8 (7-17) mg/dL Creatinine 0.78 (0.52-1.04) mg/dL Est GFR (CKD-EPI)AfAm >90 (>60 ml/min/1.73 sqM) Est GFR (CKD-EPI)NonAf 78 (>60 ml/min/1.73 sqM) Glucose 95 (74-99) mg/dL Calcium 9.0 (8.4-10.2) mg/dL Magnesium 2.3 (1.6-2.3) mg/dL Total Bilirubin 0.8 (0.2-1.3) mg/dL AST 21 (14-36) U/L ALT 32 (9-52) U/L Alkaline Phosphatase 131 H (38-126) U/L Total Creatine Kinase 30 (30-135) U/L CK-MB (CK-2) <0.2 (0.0-2.4) ng/mL CK-MB (CK-2) Rel Index Troponin I <0.012 (0.000-0.034) ng/mL Total Protein 6.9 (6.3-8.2) g/dL Albumin 3.9 (3.5-5.0) g/dL Urine Color Urine Appearance (Clear) Urine pH (5.0-8.0) Ur Specific [place] (1.001-1.035) Urine Protein (Negative) Urine Glucose (UA) (Negative) Urine Ketones (Negative) Urine Blood (Negative) Urine Nitrite (Negative) Urine Bilirubin (Negative) Urine Urobilinogen (<2.0) mg/dL Ur Leukocyte Esterase (Negative) 05/21/18 05/21/18 Range/Units 13:17 14:30 WBC (3.8-10.6) k/uL RBC (3.80-5.40) m/uL Hgb (11.4-16.0) gm/dL Hct (34.0-46.0) % MCV (80.0-100.0) fL MCH (25.0-35.0) pg MCHC (31.0-37.0) g/dL RDW (11.5-15.5) % Plt Count (150-450) k/uL Neutrophils % % Lymphocytes % % Monocytes % % Eosinophils % % Basophils % % Neutrophils # (1.3-7.7) k/uL Lymphocytes # (1.0-4.8) k/uL Monocytes # (0-1.0) k/uL Eosinophils # (0-0.7) k/uL Basophils # (0-0.2) k/uL Hypochromasia Anisocytosis Microcytosis PT 9.7 (9.0-12.0) sec INR 0.9 (<1.2) APTT 23.8 (22.0-30.0) sec Sodium (137-145) mmol/L Potassium (3.5-5.1) mmol/L Chloride (98-107) mmol/L Carbon Dioxide (22-30) mmol/L Anion Gap mmol/L BUN (7-17) mg/dL Creatinine (0.52-1.04) mg/dL Est GFR (CKD-EPI)AfAm (>60 ml/min/1.73 sqM) Est GFR (CKD-EPI)NonAf (>60 ml/min/1.73 sqM) Glucose (74-99) mg/dL Calcium (8.4-10.2) mg/dL Magnesium (1.6-2.3) mg/dL Total Bilirubin (0.2-1.3) mg/dL AST (14-36) U/L ALT (9-52) U/L Alkaline Phosphatase (38-126) U/L Total Creatine Kinase (30-135) U/L CK-MB (CK-2) (0.0-2.4) ng/mL CK-MB (CK-2) Rel Index Troponin I (0.000-0.034) ng/mL Total Protein (6.3-8.2) g/dL Albumin (3.5-5.0) g/dL Urine Color Light Yellow Urine Appearance Clear (Clear) Urine pH 6.0 (5.0-8.0) Ur Specific [place] 1.005 (1.001-1.035) Urine Protein Negative (Negative) Urine Glucose (UA) Negative (Negative) Urine Ketones Negative (Negative) Urine Blood Negative (Negative) Urine Nitrite Negative (Negative) Urine Bilirubin Negative (Negative) Urine Urobilinogen <2.0 (<2.0) mg/dL Ur Leukocyte Esterase Negative (Negative) Disposition Clinical Impression: Fall, Chest pain Disposition: ADMITTED IP TO THIS [facility] Condition: Good Is patient prescribed a controlled substance at d/c from ED?: No Referrals: Cade Menendez DO [Primary Care Provider] - 1-2 days Time of Disposition: 16:44
[2018-05-21] MEDS ORDERED: NITROGLYCERIN SL TABS 0.4 MG TAB SUBLINGUAL PRN (17:16)
[2018-05-21] MEDS ORDERED: ASPIRIN 81 MG PO STA (17:16)
[2018-05-21] MEDS ORDERED: SODIUM CHLORIDE 0.9% 1,000 ML IV ONE (17:16)
--- NOTE | 2018-05-21 17:42 | ED ---
Medical Decision Making - Medical Decision Making Patient's labs been reviewed unremarkable. Case discussed with Dr. Menendez who states knows the patient well feels that she did have a recent cardiac cath which was negative that she may be discharged he will facilitate a follow-up with cardiology. Patient is pain-free here in the emergency room and is agreement to be discharged. She feels that she will return if any symptoms increase worsen or for any other concerns. - Lab Data Result diagrams: 05/21/18 13:17 05/21/18 13:17 Lab Results 05/21/18 05/21/18 05/21/18 Range/Units 13:17 13:17 13:17 WBC 4.8 (3.8-10.6) k/uL RBC 5.21 (3.80-5.40) m/uL Hgb 11.5 (11.4-16.0) gm/dL Hct 36.8 (34.0-46.0) % MCV 70.5 L (80.0-100.0) fL MCH 22.1 L (25.0-35.0) pg MCHC 31.3 (31.0-37.0) g/dL RDW 16.1 H (11.5-15.5) % Plt Count 314 (150-450) k/uL Neutrophils % 48 % Lymphocytes % 37 % Monocytes % 7 % Eosinophils % 5 % Basophils % 1 % Neutrophils # 2.3 (1.3-7.7) k/uL Lymphocytes # 1.8 (1.0-4.8) k/uL Monocytes # 0.3 (0-1.0) k/uL Eosinophils # 0.2 (0-0.7) k/uL Basophils # 0.1 (0-0.2) k/uL Hypochromasia Slight Anisocytosis Slight Microcytosis Moderate PT (9.0-12.0) sec INR (<1.2) APTT (22.0-30.0) sec Sodium 141 (137-145) mmol/L Potassium 3.7 (3.5-5.1) mmol/L Chloride 108 H (98-107) mmol/L Carbon Dioxide 26 (22-30) mmol/L Anion Gap 7 mmol/L BUN 8 (7-17) mg/dL Creatinine 0.78 (0.52-1.04) mg/dL Est GFR (CKD-EPI)AfAm >90 (>60 ml/min/1.73 sqM) Est GFR (CKD-EPI)NonAf 78 (>60 ml/min/1.73 sqM) Glucose 95 (74-99) mg/dL Calcium 9.0 (8.4-10.2) mg/dL Magnesium 2.3 (1.6-2.3) mg/dL Total Bilirubin 0.8 (0.2-1.3) mg/dL AST 21 (14-36) U/L ALT 32 (9-52) U/L Alkaline Phosphatase 131 H (38-126) U/L Total Creatine Kinase 30 (30-135) U/L CK-MB (CK-2) <0.2 (0.0-2.4) ng/mL CK-MB (CK-2) Rel Index Troponin I <0.012 (0.000-0.034) ng/mL Total Protein 6.9 (6.3-8.2) g/dL Albumin 3.9 (3.5-5.0) g/dL Urine Color Urine Appearance (Clear) Urine pH (5.0-8.0) Ur Specific [place] (1.001-1.035) Urine Protein (Negative) Urine Glucose (UA) (Negative) Urine Ketones (Negative) Urine Blood (Negative) Urine Nitrite (Negative) Urine Bilirubin (Negative) Urine Urobilinogen (<2.0) mg/dL Ur Leukocyte Esterase (Negative) 05/21/18 05/21/18 Range/Units 13:17 14:30 WBC (3.8-10.6) k/uL RBC (3.80-5.40) m/uL Hgb (11.4-16.0) gm/dL Hct (34.0-46.0) % MCV (80.0-100.0) fL MCH (25.0-35.0) pg MCHC (31.0-37.0) g/dL RDW (11.5-15.5) % Plt Count (150-450) k/uL Neutrophils % % Lymphocytes % % Monocytes % % Eosinophils % % Basophils % % Neutrophils # (1.3-7.7) k/uL Lymphocytes # (1.0-4.8) k/uL Monocytes # (0-1.0) k/uL Eosinophils # (0-0.7) k/uL Basophils # (0-0.2) k/uL Hypochromasia Anisocytosis Microcytosis PT 9.7 (9.0-12.0) sec INR 0.9 (<1.2) APTT 23.8 (22.0-30.0) sec Sodium (137-145) mmol/L Potassium (3.5-5.1) mmol/L Chloride (98-107) mmol/L Carbon Dioxide (22-30) mmol/L Anion Gap mmol/L BUN (7-17) mg/dL Creatinine (0.52-1.04) mg/dL Est GFR (CKD-EPI)AfAm (>60 ml/min/1.73 sqM) Est GFR (CKD-EPI)NonAf (>60 ml/min/1.73 sqM) Glucose (74-99) mg/dL Calcium (8.4-10.2) mg/dL Magnesium (1.6-2.3) mg/dL Total Bilirubin (0.2-1.3) mg/dL AST (14-36) U/L ALT (9-52) U/L Alkaline Phosphatase (38-126) U/L Total Creatine Kinase (30-135) U/L CK-MB (CK-2) (0.0-2.4) ng/mL CK-MB (CK-2) Rel Index Troponin I (0.000-0.034) ng/mL Total Protein (6.3-8.2) g/dL Albumin (3.5-5.0) g/dL Urine Color Light Yellow Urine Appearance Clear (Clear) Urine pH 6.0 (5.0-8.0) Ur Specific [place] 1.005 (1.001-1.035) Urine Protein Negative (Negative) Urine Glucose (UA) Negative (Negative) Urine Ketones Negative (Negative) Urine Blood Negative (Negative) Urine Nitrite Negative (Negative) Urine Bilirubin Negative (Negative) Urine Urobilinogen <2.0 (<2.0) mg/dL Ur Leukocyte Esterase Negative (Negative) Disposition Clinical Impression: Fall, Chest pain Disposition: ADMITTED IP TO THIS [facility] Condition: Good Is patient prescribed a controlled substance at d/c from ED?: No Referrals: Cade Menendez DO [Primary Care Provider] - 1-2 days Time of Disposition: 17:42
--- NOTE | 2018-05-21 18:20 | ED ---
Medical Decision Making - Lab Data Result diagrams: 05/21/18 13:17 05/21/18 13:17 Lab Results 05/21/18 05/21/18 05/21/18 Range/Units 13:17 13:17 13:17 WBC 4.8 (3.8-10.6) k/uL RBC 5.21 (3.80-5.40) m/uL Hgb 11.5 (11.4-16.0) gm/dL Hct 36.8 (34.0-46.0) % MCV 70.5 L (80.0-100.0) fL MCH 22.1 L (25.0-35.0) pg MCHC 31.3 (31.0-37.0) g/dL RDW 16.1 H (11.5-15.5) % Plt Count 314 (150-450) k/uL Neutrophils % 48 % Lymphocytes % 37 % Monocytes % 7 % Eosinophils % 5 % Basophils % 1 % Neutrophils # 2.3 (1.3-7.7) k/uL Lymphocytes # 1.8 (1.0-4.8) k/uL Monocytes # 0.3 (0-1.0) k/uL Eosinophils # 0.2 (0-0.7) k/uL Basophils # 0.1 (0-0.2) k/uL Hypochromasia Slight Anisocytosis Slight Microcytosis Moderate PT (9.0-12.0) sec INR (<1.2) APTT (22.0-30.0) sec Sodium 141 (137-145) mmol/L Potassium 3.7 (3.5-5.1) mmol/L Chloride 108 H (98-107) mmol/L Carbon Dioxide 26 (22-30) mmol/L Anion Gap 7 mmol/L BUN 8 (7-17) mg/dL Creatinine 0.78 (0.52-1.04) mg/dL Est GFR (CKD-EPI)AfAm >90 (>60 ml/min/1.73 sqM) Est GFR (CKD-EPI)NonAf 78 (>60 ml/min/1.73 sqM) Glucose 95 (74-99) mg/dL Calcium 9.0 (8.4-10.2) mg/dL Magnesium 2.3 (1.6-2.3) mg/dL Total Bilirubin 0.8 (0.2-1.3) mg/dL AST 21 (14-36) U/L ALT 32 (9-52) U/L Alkaline Phosphatase 131 H (38-126) U/L Total Creatine Kinase 30 (30-135) U/L CK-MB (CK-2) <0.2 (0.0-2.4) ng/mL CK-MB (CK-2) Rel Index Troponin I <0.012 (0.000-0.034) ng/mL Total Protein 6.9 (6.3-8.2) g/dL Albumin 3.9 (3.5-5.0) g/dL Urine Color Urine Appearance (Clear) Urine pH (5.0-8.0) Ur Specific [place] (1.001-1.035) Urine Protein (Negative) Urine Glucose (UA) (Negative) Urine Ketones (Negative) Urine Blood (Negative) Urine Nitrite (Negative) Urine Bilirubin (Negative) Urine Urobilinogen (<2.0) mg/dL Ur Leukocyte Esterase (Negative) 05/21/18 05/21/18 Range/Units 13:17 14:30 WBC (3.8-10.6) k/uL RBC (3.80-5.40) m/uL Hgb (11.4-16.0) gm/dL Hct (34.0-46.0) % MCV (80.0-100.0) fL MCH (25.0-35.0) pg MCHC (31.0-37.0) g/dL RDW (11.5-15.5) % Plt Count (150-450) k/uL Neutrophils % % Lymphocytes % % Monocytes % % Eosinophils % % Basophils % % Neutrophils # (1.3-7.7) k/uL Lymphocytes # (1.0-4.8) k/uL Monocytes # (0-1.0) k/uL Eosinophils # (0-0.7) k/uL Basophils # (0-0.2) k/uL Hypochromasia Anisocytosis Microcytosis PT 9.7 (9.0-12.0) sec INR 0.9 (<1.2) APTT 23.8 (22.0-30.0) sec Sodium (137-145) mmol/L Potassium (3.5-5.1) mmol/L Chloride (98-107) mmol/L Carbon Dioxide (22-30) mmol/L Anion Gap mmol/L BUN (7-17) mg/dL Creatinine (0.52-1.04) mg/dL Est GFR (CKD-EPI)AfAm (>60 ml/min/1.73 sqM) Est GFR (CKD-EPI)NonAf (>60 ml/min/1.73 sqM) Glucose (74-99) mg/dL Calcium (8.4-10.2) mg/dL Magnesium (1.6-2.3) mg/dL Total Bilirubin (0.2-1.3) mg/dL AST (14-36) U/L ALT (9-52) U/L Alkaline Phosphatase (38-126) U/L Total Creatine Kinase (30-135) U/L CK-MB (CK-2) (0.0-2.4) ng/mL CK-MB (CK-2) Rel Index Troponin I (0.000-0.034) ng/mL Total Protein (6.3-8.2) g/dL Albumin (3.5-5.0) g/dL Urine Color Light Yellow Urine Appearance Clear (Clear) Urine pH 6.0 (5.0-8.0) Ur Specific [place] 1.005 (1.001-1.035) Urine Protein Negative (Negative) Urine Glucose (UA) Negative (Negative) Urine Ketones Negative (Negative) Urine Blood Negative (Negative) Urine Nitrite Negative (Negative) Urine Bilirubin Negative (Negative) Urine Urobilinogen <2.0 (<2.0) mg/dL Ur Leukocyte Esterase Negative (Negative) Disposition Clinical Impression: Fall, Chest pain Disposition: HOME SELF-CARE Condition: Good Instructions (If sedation given, give patient instructions): Chest Pain (ED) Additional Instructions: Please use medication as discussed. Please follow-up with family doctor tomorrow. Please return to emergency room if the symptoms increase or worsen or for any other concerns. Is patient prescribed a controlled substance at d/c from ED?: No Referrals: Cade Menendez DO [Primary Care Provider] - 1-2 days
[2018-05-21 18:41] VITALS: BP 150/80; PULSE 88; RESP 18
[2018-05-22] MEDS ORDERED: ASPIRIN 325 MG TAB PO SCH (09:00)
== END 2018-05-21 18:40 | disposition home or self-care (01) ==
LOC: EC 13:02
DX: R07.9 Chest pain, unspecified (principal); K21.9 Gastro-esophageal reflux disease without esophagitis; E78.5 Hyperlipidemia, unspecified; I10 Essential (primary) hypertension; G40.909 Epilepsy, unspecified, not intractable, without status epilepticus; E07.9 Disorder of thyroid, unspecified; F32.9 Major depressive disorder, single episode, unspecified; F41.9 Anxiety disorder, unspecified; M19.90 Unspecified osteoarthritis, unspecified site; Z79.02 Long term (current) use of antithrombotics/antiplatelets; Z79.890 Hormone replacement therapy; Z79.899 Other long term (current) drug therapy; Z88.1 Allergy status to other antibiotic agents; Z88.5 Allergy status to narcotic agent; Z88.2 Allergy status to sulfonamides; Z88.8 Allergy status to other drugs, medicaments and biological substances; Z95.5 Presence of coronary angioplasty implant and graft; Z95.0 Presence of cardiac pacemaker; Z98.84 Bariatric surgery status; Z98.1 Arthrodesis status; W01.0XXA Fall on same level from slipping, tripping and stumbling without subsequent striking against object, initial encounter; Y92.002 Bathroom of unspecified non-institutional (private) residence as the place of occurrence of the external cause
CPT/HCPCS: 36415; 70450; 70486; 71046; 72125; 80053; 81003; 82550; 82553; 83735; 84484; 85025; 85610; 85730; 93005; 99285

== ENCOUNTER 2018-06-23 18:51 | Emergency (ER) | payer MEDICARE ==
[2018-06-23] MEDS ORDERED: LORazepam 2 MG/ML INJ IV STA (18:56)
--- NOTE | 2018-06-23 19:00 | ED ---
General Adult HPI - General Stated complaint: CHEST PAIN Time Seen by Provider: 06/23/18 18:56 - History of Present Illness Initial comments: Dictation was produced using [id number] dictation software. please excuse any grammatical, word or spelling errors. Chief Complaint: 68-year-old female past medical history GERD, GI bleed, dyslipidemia, osteoporosis arthritis, seizure disorder, thyroid disease presents with dyspnea. History of Present Illness: 68-year-old female. She has multiple comorbidities. Patient states that she has been feeling short of breath today. Patient has history of anxiety. She has multiple ALLERGIES. She states she' s been under a lot of stress recently given that her family members have been having a lot of medical issues. She reports that she is feeling anxious because her brother had an infected Lasik surgery. Furthermore, she reports that her sister has been diagnosed with a serious medical condition. She states that she is having difficulty coping with this. She called EMS today for difficulty in breathing. Patient has no pain complaints at this time. She denies any chest pain. No numbness tingling or paresthesias. The ROS documented in this emergency department record has been reviewed and confirmed by me. Those systems with pertinent positive or negative responses have been documented in the HPI. All other systems are other negative and/or noncontributory. PHYSICAL EXAM: General Impression: Alert and oriented x3, hyperventilating HEENT: Normocephalic atraumatic, extra-ocular movements intact, pupils equal and reactive to light bilaterally, mucous membranes moist. Cardiovascular: Heart regular rate and rhythm, S1&S2 audible, no murmurs, rubs or gallops Chest: Lungs clear to auscultation bilaterally, no rhonchi, no wheeze, no rales Abdomen: Bowel sounds present, abdomen soft, non-tender, non-distended, no organomegaly Musculoskeletal: Pulses present and equal in all extremities, no peripheral edema Motor: Power 5/5 bilaterally, no focal deficits noted Neurological: CN II-XII grossly intact, no focal motor or sensory deficits noted Skin: Intact with no visualized rashes Psych: Normal affect and mood ED course: 68 yo female presents with chief complaint of dyspnea. Patient appears anxious. She feels as though this is her anxiety Vital signs upon arrival are within acceptable limitsStrong clinical suspicion of anxiety reaction at this time. Patient given antiemetics with improvement of respiratory symptoms. Patient feels comfortable at this time. Labs obtained showing no changes. Patient does have mild hypokalemia with potassium 3.2, rest of labs unremarkable. Cardiac enzymes negative, BNP is negative. Chest x-ray shows no acute processes. Patient observed in emergency department with stable medical condition. Patient feels well to go home. Patient's symptoms are very atypical for cardiac or other acute cardiac pulmonary process. Patient clear for discharge. Told to follow up with primary care physician. EKG interpretation: Ventricular rate 63, normal sinus rhythm, WI interval 186, care is 80, QTc 460. No WI prolongation, no QTC prolongation, no ST or T-wave changes noted. Overall, this EKG is unremarkable - Related Data Home Medications Medication Instructions Recorded Confirmed Atorvastatin [Lipitor] 10 mg PO HS 09/21/13 06/23/18 Fycompa 4 Mg 4 mg PO HS 09/25/17 06/23/18 Carvedilol [Coreg] 3.125 mg PO BID 11/11/17 06/23/18 Levothyroxine Sodium [Synthroid] 50 mcg PO DAILY 11/11/17 06/23/18 Meclizine [Antivert] 25 mg PO TID PRN 11/11/17 06/23/18 Omeprazole 20 mg PO BID 11/11/17 06/23/18 Potassium Chloride ER [K-Dur 20] 20 meq PO BID 11/11/17 06/23/18 buPROPion XL [Wellbutrin Xl] 150 mg PO HS 11/11/17 06/23/18 levETIRAcetam [Keppra] 1,000 mg PO BID 12/11/17 06/23/18 amLODIPine [Norvasc] 5 mg PO DAILY 01/08/18 06/23/18 levETIRAcetam [Keppra] 250 mg PO QAM 05/21/18 06/23/18 Citalopram Hydrobromide [CeleXA] 40 mg PO DAILY 06/23/18 06/23/18 Ibuprofen [Motrin] 800 mg PO Q8H PRN 06/23/18 06/23/18 hydrOXYzine HCL 25 mg PO TID PRN 06/23/18 06/23/18 Allergies Allergy/AdvReac Type Severity Reaction Status Date / Time ciprofloxacin [From Cipro] Allergy Unknown Verified 06/23/18 19:33 ciprofloxacin HCl Allergy Unknown Verified 06/23/18 19:33 [From Cipro] hydromorphone [From Dilaudid] Allergy Rash/Hives Verified 06/23/18 19:33 soy Allergy Anaphylaxis Verified 06/23/18 19:33 tetracycline [Tetracycline] Allergy Rash/Hives Verified 06/23/18 19:33 tioconazole [From Monistat 1] Allergy Rash/Hives Verified 06/23/18 19:33 codeine AdvReac Rash/Hives Verified 06/23/18 19:33 hydrocodone bitartrate AdvReac Rash/Hives Verified 06/23/18 19:33 [From Lortab] meperidine HCl [From Demerol] AdvReac Rash/Hives Verified 06/23/18 19:33 morphine AdvReac Rash/Hives Verified 06/23/18 19:33 propoxyphene napsylate AdvReac Rash/Hives Verified 06/23/18 19:33 [From Darvocet-N 100] Sulfa (Sulfonamide AdvReac Rash/Hives Verified 06/23/18 19:33 Antibiotics) Review of Systems ROS Statement: Those systems with pertinent positive or pertinent negative responses have been documented in the HPI. ROS Other: All systems not noted in ROS Statement are negative. Past Medical History Past Medical History: GERD/Reflux, GI Bleed, Hyperlipidemia, Hypertension, Osteoarthritis (OA), Seizure Disorder, Thyroid Disorder Additional Past Medical History / Comment(s): history of depression History of Any Multi-Drug Resistant Organisms: ESBL Date of last positivie culture/infection: 01/08/18 MDRO Source:: ESBL URINE Past Surgical History: Back Surgery, Cholecystectomy, Heart Catheterization, Hernia Repair, Joint Replacement, Pacemaker, Tonsillectomy Additional Past Surgical History / Comment(s): LAP BAND INSERTED & REMOVED, GASTRIC SLEEVE (2016), GINI TOTAL KNEES, CERVICAL FUSION (2-7), BOWEL RESECTION. , INCISIONAL HERNIA'S. STATES SEVERAL HEART CATHS-NO STENTS (DONE AT [facility] & [facility]) Past Anesthesia/Blood Transfusion Reactions: No Reported Reaction Additional Past Anesthesia/Blood Transfusion Reaction / Comment(s): blood transfusion-no reaction Type of Cardiac Device: Permanent Pacemaker Device Placement Date:: 10/12/17 Past Psychological History: Anxiety, Depression Smoking Status: Never smoker Past Alcohol Use History: None Reported Past Drug Use History: None Reported - Past Family History Mother Family Medical History: Pulmonary Embolus Additional Family Medical History / Comment(s): Multiple TIA's. Father Family Medical History: Cancer Additional Family Medical History / Comment(s): Lung Sister(s) Family Medical History: Cancer Additional Family Medical History / Comment(s): OVARIAN CANCER Course Vital Signs 06/23/18 06/23/18 06/23/18 18:57 19:20 19:38 Temperature 97.9 F Pulse Rate 72 62 Respiratory 17 20 18 Rate Blood Pressure 132/77 O2 Sat by Pulse 99 100 Oximetry 06/23/18 20:24 Temperature 97.9 F Pulse Rate 66 Respiratory 13 Rate Blood Pressure 141/89 O2 Sat by Pulse 96 Oximetry Medical Decision Making - Lab Data Result diagrams: 06/23/18 19:30 06/23/18 19:30 Lab Results 06/23/18 06/23/18 06/23/18 Range/Units 19:30 19:30 19:30 WBC 6.7 (3.8-10.6) k/uL RBC 5.47 H (3.80-5.40) m/uL Hgb 11.7 (11.4-16.0) gm/dL Hct 38.5 (34.0-46.0) % MCV 70.3 L (80.0-100.0) fL MCH 21.4 L (25.0-35.0) pg MCHC 30.4 L (31.0-37.0) g/dL RDW 16.8 H (11.5-15.5) % Plt Count 365 (150-450) k/uL Neutrophils % 49 % Lymphocytes % 38 % Monocytes % 6 % Eosinophils % 4 % Basophils % 1 % Neutrophils # 3.3 (1.3-7.7) k/uL Lymphocytes # 2.5 (1.0-4.8) k/uL Monocytes # 0.4 (0-1.0) k/uL Eosinophils # 0.3 (0-0.7) k/uL Basophils # 0.1 (0-0.2) k/uL Hypochromasia Moderate Anisocytosis Slight Microcytosis Marked PT (9.0-12.0) sec INR (<1.2) APTT (22.0-30.0) sec Sodium 142 (137-145) mmol/L Potassium 3.2 L (3.5-5.1) mmol/L Chloride 108 H (98-107) mmol/L Carbon Dioxide 23 (22-30) mmol/L Anion Gap 11 mmol/L BUN 9 (7-17) mg/dL Creatinine 0.77 (0.52-1.04) mg/dL Est GFR (CKD-EPI)AfAm >90 (>60 ml/min/1.73 sqM) Est GFR (CKD-EPI)NonAf 79 (>60 ml/min/1.73 sqM) Glucose 94 (74-99) mg/dL Calcium 10.0 (8.4-10.2) mg/dL Magnesium 2.3 (1.6-2.3) mg/dL Total Bilirubin 1.2 (0.2-1.3) mg/dL AST 22 (14-36) U/L ALT 31 (9-52) U/L Alkaline Phosphatase 131 H (38-126) U/L Troponin I (0.000-0.034) ng/mL NT-Pro-B Natriuret Pep 74 pg/mL Total Protein 7.5 (6.3-8.2) g/dL Albumin 4.5 (3.5-5.0) g/dL 06/23/18 06/23/18 Range/Units 19:30 19:30 WBC (3.8-10.6) k/uL RBC (3.80-5.40) m/uL Hgb (11.4-16.0) gm/dL Hct (34.0-46.0) % MCV (80.0-100.0) fL MCH (25.0-35.0) pg MCHC (31.0-37.0) g/dL RDW (11.5-15.5) % Plt Count (150-450) k/uL Neutrophils % % Lymphocytes % % Monocytes % % Eosinophils % % Basophils % % Neutrophils # (1.3-7.7) k/uL Lymphocytes # (1.0-4.8) k/uL Monocytes # (0-1.0) k/uL Eosinophils # (0-0.7) k/uL Basophils # (0-0.2) k/uL Hypochromasia Anisocytosis Microcytosis PT 10.1 (9.0-12.0) sec INR 0.9 (<1.2) APTT 24.7 (22.0-30.0) sec Sodium (137-145) mmol/L Potassium (3.5-5.1) mmol/L Chloride (98-107) mmol/L Carbon Dioxide (22-30) mmol/L Anion Gap mmol/L BUN (7-17) mg/dL Creatinine (0.52-1.04) mg/dL Est GFR (CKD-EPI)AfAm (>60 ml/min/1.73 sqM) Est GFR (CKD-EPI)NonAf (>60 ml/min/1.73 sqM) Glucose (74-99) mg/dL Calcium (8.4-10.2) mg/dL Magnesium (1.6-2.3) mg/dL Total Bilirubin (0.2-1.3) mg/dL AST (14-36) U/L ALT (9-52) U/L Alkaline Phosphatase (38-126) U/L Troponin I <0.012 (0.000-0.034) ng/mL NT-Pro-B Natriuret Pep pg/mL Total Protein (6.3-8.2) g/dL Albumin (3.5-5.0) g/dL Disposition Clinical Impression: Anxiety reaction Disposition: HOME SELF-CARE Condition: Good Instructions (If sedation given, give patient instructions): Stress (ED) Is patient prescribed a controlled substance at d/c from ED?: No Referrals: Cade Menendez DO [Primary Care Provider] - 1-2 days Time of Disposition: 20:45
[2018-06-23 19:07] VITALS: TEMP 97.9
[2018-06-23 19:52] LABS: Anisocytosis Slight; Basophils # (A) 0.1 k/uL (0-0.2); Basophils % (A) 1 %; Eosinophils # (A) 0.3 k/uL (0-0.7); Eosinophils % (A) 4 %; HCT 38.5 % (34.0-46.0); HGB 11.7 gm/dL (11.4-16.0); Hypochromasia Moderate; Lymphocytes # (A) 2.5 k/uL (1.0-4.8); Lymphocytes % (A) 38 %; MCH 21.4 pg (25.0-35.0); MCHC 30.4 g/dL (31.0-37.0); MCV 70.3 fL (80.0-100.0); Mean Platelet Volume 7.2; Microcytosis Marked; Monocytes # (A) 0.4 k/uL (0-1.0); Monocytes % (A) 6 %; Neutrophils # (A) 3.3 k/uL (1.3-7.7); Neutrophils % (A) 49 %; Platelet Count 365 k/uL (150-450); RBC 5.47 m/uL (3.80-5.40); RDW 16.8 % (11.5-15.5); WBC 6.7 k/uL (3.8-10.6)
[2018-06-23 20:01] LABS: INR 0.9 (<1.2); Partial Thromboplastin Time 24.7 sec (22.0-30.0); Prothrombin Time 10.1 sec (9.0-12.0)
--- NOTE | 2018-06-23 20:15 | XR ---
EXAMINATION: XR chest 2V DATE AND TIME: 06/23/2018 7:46 PM CLINICAL INDICATION: PHH; difficulty breathing TECHNIQUE: Departmental protocol COMPARISON: 05/21/2018 FINDINGS: Cardiac pacemaker and EKG leads. The lungs are clear. The pleural spaces are negative. The cardiac silhouette is borderline enlarged. The remainder of the mediastinal silhouette is unremar kable. The skeletal structures and soft tissues are negative for acute findings. IMPRESSION: NO ACUTE PROCESS.
[2018-06-23 20:19] LABS: ALT 31 U/L (9-52); AST 22 U/L (14-36); Albumin 4.5 g/dL (3.5-5.0); Alkaline Phosphatase 131 U/L (38-126); Anion Gap 11 mmol/L; Blood Urea Nitrogen 9 mg/dL (7-17); Carbon Dioxide 23 mmol/L (22-30); Chloride 108 mmol/L (98-107); Glucose 94 mg/dL (74-99); Magnesium 2.3 mg/dL (1.6-2.3); Potassium 3.2 mmol/L (3.5-5.1); Sodium 142 mmol/L (137-145); Total Bilirubin 1.2 mg/dL (0.2-1.3); Total Protein 7.5 g/dL (6.3-8.2)
[2018-06-23 20:27] VITALS: BP 141/89; PULSE 66; RESP 13
[2018-06-23] MEDS ORDERED: POTASSIUM BICARBONATE/CIT AC 20 MEQ TABLET.EFF PO ONE (20:41)
== END 2018-06-23 21:00 | disposition home or self-care (01) ==
LOC: EC 18:51
DX: F41.1 Generalized anxiety disorder (principal); E87.6 Hypokalemia; R06.02 Shortness of breath; K21.9 Gastro-esophageal reflux disease without esophagitis; E78.5 Hyperlipidemia, unspecified; I10 Essential (primary) hypertension; E07.9 Disorder of thyroid, unspecified; F32.9 Major depressive disorder, single episode, unspecified; G40.909 Epilepsy, unspecified, not intractable, without status epilepticus; Z79.890 Hormone replacement therapy; Z79.899 Other long term (current) drug therapy; Z88.1 Allergy status to other antibiotic agents; Z88.2 Allergy status to sulfonamides; Z88.3 Allergy status to other anti-infective agents; Z88.5 Allergy status to narcotic agent; Z91.018 Allergy to other foods; Z96.653 Presence of artificial knee joint, bilateral; Z95.0 Presence of cardiac pacemaker; Z95.818 Presence of other cardiac implants and grafts
CPT/HCPCS: 99285; 96374; 36415; 93005; 83880; 80053; 83735; 84484; 85025; 85610; 85730; 71046; J2060

== ENCOUNTER 2018-08-09 17:13 | Emergency (ER) | payer MEDICARE ==
[2018-08-09 17:21] VITALS: BP 142/89; PULSE 79; RESP 18; TEMP 98.2
--- NOTE | 2018-08-09 17:54 | ED ---
General Adult HPI - General Chief complaint: Chest Pain Stated complaint: cough/chest pain/seizure Time Seen by Provider: 08/09/18 17:30 Source: patient Mode of arrival: ambulatory Limitations: no limitations - History of Present Illness Initial comments: Dictation was produced using [employer] dictation software. please excuse any grammatical, word or spelling errors. Chief Complaint: 68-year-old female past medical history of GERD, GI bleed, seizure disorder presents with cough, shortness of breath and chest pain. History of Present Illness: It is 68-year-old female multiple comorbidities. She presents today with cough, chest pain and shortness of breath. Patient states this started yesterday. Started feeling slightly sick last night. This point she woke up with some pain in her throat. Patient also has been having chills. She reports having a cough productive of sputum. She states the sputum is yellow in nature. Patient denies any nausea, vomiting diarrhea. She states the pain as sharp and pleuritic in nature. The ROS documented in this emergency department record has been reviewed and confirmed by me. Those systems with pertinent positive or negative responses have been documented in the HPI. All other systems are other negative and/or noncontributory. PHYSICAL EXAM: General Impression: Alert and oriented x3, not in acute distress HEENT: Normocephalic atraumatic, extra-ocular movements intact, pupils equal and reactive to light bilaterally, mucous membranes moist. Cardiovascular: Heart regular rate and rhythm, S1&S2 audible, no murmurs, rubs or gallops Chest: Lungs clear to auscultation bilaterally, no rhonchi, no wheeze, no rales Abdomen: Bowel sounds present, abdomen soft, non-tender, non-distended, no organomegaly Musculoskeletal: Pulses present and equal in all extremities, no peripheral edema Motor: no focal deficits noted Neurological: CN II-XII grossly intact, no focal motor or sensory deficits noted Skin: Intact with no visualized rashes Psych: Normal affect and mood ED course: 68-year-old female presents with URI versus pulmonary infectious type symptoms. Vital signs upon arrival are within acceptable limits. Patient is not hypoxic. Afebrile.Lab evaluation obtained. Mild leukocytosis of 11.5. Rest of CBC is unremarkable. Metabolic panel is negative. Troponins negative. Rapid strep is negative. Chest x-ray is nonacute. Click or presentation suspic ious for pneumonia given patient's symptoms. Given the patient is leukocytosis and symptoms to suggest pneumonia. Patient would benefit from antibiotic regimen. Patient given 5 day Zithromax pack and albuterol inhaler when necessary coughing fits or shortness of breath. Patient otherwise advised follow-up with PCP upon discharge. She understandable and agreeable to plan. Told to return if she has any worsening symptoms. EKG interpretation: Ventricular rate 65, normal sinus rhythm, KY interval 90, QS 92, QTc 443. No [place] prolongation, no QTC prolongation, no ST or T-wave changes noted. Overall, this EKG is unremarkable - Related Data Home Medications Medication Instructions Recorded Confirmed Atorvastatin [Lipitor] 10 mg PO HS 09/21/13 08/09/18 Fycompa 4 Mg 4 mg PO HS 09/25/17 08/09/18 Carvedilol [Coreg] 3.125 mg PO BID 11/11/17 08/09/18 Levothyroxine Sodium [Synthroid] 50 mcg PO DAILY 11/11/17 08/09/18 Meclizine [Antivert] 25 mg PO TID PRN 11/11/17 08/09/18 Omeprazole 20 mg PO BID 11/11/17 08/09/18 Potassium Chloride ER [K-Dur 20] 20 meq PO BID 11/11/17 08/09/18 buPROPion XL [Wellbutrin Xl] 150 mg PO HS 11/11/17 08/09/18 levETIRAcetam [Keppra] 1,000 mg PO BID 12/11/17 08/09/18 amLODIPine [Norvasc] 5 mg PO DAILY 01/08/18 08/09/18 levETIRAcetam [Keppra] 250 mg PO QAM 05/21/18 08/09/18 Citalopram Hydrobromide [CeleXA] 40 mg PO DAILY 06/23/18 08/09/18 Ibuprofen [Motrin] 800 mg PO Q8H PRN 06/23/18 08/09/18 hydrOXYzine HCL 25 mg PO TID PRN 06/23/18 08/09/18 Previous Rx's Medication Instructions Recorded Albuterol Inhaler [Ventolin Hfa 1 - 2 puff INHALATION RT-Q6H PRN 08/09/18 Inhaler] #1 inhaler Azithromycin [Zithromax Z-pack] 0 mg PO DIRECTED #6 tab 08/09/18 Allergies Allergy/AdvReac Type Severity Reaction Status Date / Time ciprofloxacin [From Cipro] Allergy Unknown Verified 08/09/18 18:20 ciprofloxacin HCl Allergy Unknown Verified 08/09/18 18:20 [From Cipro] hydromorphone [From Dilaudid] Allergy Rash/Hives Verified 08/09/18 18:20 soy Allergy Anaphylaxis Verified 08/09/18 18:20 tetracycline [Tetracycline] Allergy Rash/Hives Verified 08/09/18 18:20 tioconazole [From Monistat 1] Allergy Rash/Hives Verified 08/09/18 18:20 codeine AdvReac Rash/Hives Verified 08/09/18 18:20 hydrocodone bitartrate AdvReac Rash/Hives Verified 08/09/18 18:20 [From Lortab] meperidine HCl [From Demerol] AdvReac Rash/Hives Verified 08/09/18 18:20 morphine AdvReac Rash/Hives Verified 08/09/18 18:20 propoxyphene napsylate AdvReac Rash/Hives Verified 08/09/18 18:20 [From Darvocet-N 100] Sulfa (Sulfonamide AdvReac Rash/Hives Verified 08/09/18 18:20 Antibiotics) Review of Systems ROS Statement: Those systems with pertinent positive or pertinent negative responses have been documented in the HPI. ROS Other: All systems not noted in ROS Statement are negative. Past Medical History Past Medical History: GERD/Reflux, GI Bleed, Hyperlipidemia, Hypertension, Osteo arthritis (OA), Seizure Disorder, Thyroid Disorder Additional Past Medical History / Comment(s): history of depression History of Any Multi-Drug Resistant Organisms: ESBL Date of last positivie culture/infection: 01/08/18 MDRO Source:: ESBL URINE Past Surgical History: Back Surgery, Cholecystectomy, Heart Catheterization, Hernia Repair, Joint Replacement, Pacemaker, Tonsillectomy Additional Past Surgical History / Comment(s): LAP BAND INSERTED & REMOVED, GASTRIC SLEEVE (2016), GINI TOTAL KNEES, CERVICAL FUSION (2-7), BOWEL RESECTION., INCISIONAL HERNIA'S. STATES SEVERAL HEART CATHS-NO STENTS (DONE AT [facility]) Past Anesthesia/Blood Transfusion Reactions: No Reported Reaction Additional Past Anesthesia/Blood Transfusion Reaction / Comment(s): blood transfusion-no reaction Type of Cardiac Device: Permanent Pacemaker Device Placement Date:: 10/12/17 Past Psychological History: Anxiety, Depression Smoking Status: Never smoker Past Alcohol Use History: None Reported Past Drug Use History: None Reported - Past Family History Mother Family Medical History: Pulmonary Embolus Additional Family Medical History / Comment(s): Multiple TIA's. Father Family Medical History: Cancer Additional Family Medical History / Comment(s): Lung Sister(s) Family Medical History: Cancer Additional Family Medical History / Comment(s): OVARIAN CANCER General Exam Limitations: no limitations Course Vital Signs 08/09/18 17:18 Temperature 98.2 F Pulse Rate 79 Respiratory 18 Rate Blood Pressure 142/89 O2 Sat by Pulse 98 Oximetry Medical Decision Making - Lab Data Result diagrams: 08/09/18 17:46 08/09/18 17:46 Lab Results 08/09/18 08/09/18 08/09/18 Range/Units 17:46 17:46 17:46 WBC 11.5 H (3.8-10.6) k/uL RBC 5.38 (3.80-5.40) m/uL Hgb 11.6 (11.4-16.0) gm/dL Hct 38.2 (34.0-46.0) % MCV 70.9 L (80.0-100.0) fL MCH 21.5 L (25.0-35.0) pg MCHC 30.3 L (31.0-37.0) g/dL RDW 17.6 H (11.5-15.5) % Plt Count 363 (150-450) k/uL Neutrophils % 61 % Lymphocytes % 28 % Monocytes % 6 % Eosinophils % 3 % Basophils % 1 % Neutrophils # 7.0 (1.3-7.7) k/uL Lymphocytes # 3.2 (1.0-4.8) k/uL Monocytes # 0.6 (0-1.0) k/uL Eosinophils # 0.3 (0-0.7) k/uL Basophils # 0.1 (0-0.2) k/uL Hypochromasia Marked Anisocytosis Slight Microcytosis Marked Sodium 139 (137-145) mmol/L Potassium 4.1 (3.5-5.1) mmol/L Chloride 108 H (98-107) mmol/L Carbon Dioxide 22 (22-30) mmol/L Anion Gap 9 mmol/L BUN 9 (7-17) mg/dL Creatinine 0.81 (0.52-1.04) mg/dL Est GFR (CKD-EPI)AfAm 86 (>60 ml/min/1.73 sqM) Est GFR (CKD-EPI)NonAf 75 (>60 ml/min/1.73 sqM) Glucose 94 (74-99) mg/dL Calcium 9.7 (8.4-10.2) mg/dL Troponin I <0.012 (0.000-0.034) ng/mL Group A Strep Rapid (Negative) 08/09/18 Range/Units 18:20 WBC (3.8-10.6) k/uL RBC (3.80-5.40) m/uL Hgb (11.4-16.0) gm/dL Hct (34.0-46.0) % MCV (80.0-100.0) fL MCH (25.0-35.0) pg MCHC (31.0-37.0) g/dL RDW (11.5-15.5) % Plt Count (150-450) k/uL Neutrophils % % Lymphocytes % % Monocytes % % Eosinophils % % Basophils % % Neutrophils # (1.3-7.7) k/uL Lymphocytes # (1.0-4.8) k/uL Monocytes # (0-1.0) k/uL Eosinophils # (0-0.7) k/uL Basophils # (0-0.2) k/uL Hypochromasia Anisocytosis Microcytosis Sodium (137-145) mmol/L Potassium (3.5-5.1) mmol/L Chloride (98-107) mmol/L Carbon Dioxide (22-30) mmol/L Anion Gap mmol/L BUN (7-17) mg/dL Creatinine (0.52-1.04) mg/dL Est GFR (CKD-EPI)AfAm (>60 ml/min/1.73 sqM) Est GFR (CKD-EPI)NonAf (>60 ml/min/1.73 sqM) Glucose (74-99) mg/dL Calcium (8.4-10.2) mg/dL Troponin I (0.000-0.034) ng/mL Group A Strep Rapid Negative (Negative) Disposition Clinical Impression: Cough Disposition: HOME SELF-CARE Condition: Good Instructions (If sedation given, give patient instructions): Pneumonia (ED) Prescriptions: Albuterol Inhaler [Ventolin Hfa Inhaler] 1 - 2 puff INHALATION RT-Q6H PRN #1 inhaler PRN Reason: Dyspnea Azithromycin [Zithromax Z-pack] 0 mg PO DIRECTED #6 tab Is patient prescribed a controlled substance at d/c from ED?: No Referrals: Cade Menendez DO [Primary Care Provider] - 1-2 days Time of Disposition: 19:55
--- NOTE | 2018-08-09 18:36 | XR ---
EXAMINATION TYPE: XR chest 2V DATE OF EXAM: 08/09/2018 COMPARISON: 06/23/2018 HISTORY: Cough and chest pain TECHNIQUE: Frontal and lateral views of the chest are obtained. FINDINGS: There is no heart failure nor confluent pneumonic infiltrate. There is a left axillary pac emaker. There is no pleural effusion. Bony thorax is intact. IMPRESSION: No active cardiopulmonary disease. No change.
[2018-08-09 19:29] LABS: Anisocytosis Slight; Basophils # (A) 0.1 k/uL (0-0.2); Basophils % (A) 1 %; Eosinophils # (A) 0.3 k/uL (0-0.7); Eosinophils % (A) 3 %; HCT 38.2 % (34.0-46.0); HGB 11.6 gm/dL (11.4-16.0); Hypochromasia Marked; Lymphocytes # (A) 3.2 k/uL (1.0-4.8); Lymphocytes % (A) 28 %; MCH 21.5 pg (25.0-35.0); MCHC 30.3 g/dL (31.0-37.0); MCV 70.9 fL (80.0-100.0); Mean Platelet Volume 7.3; Microcytosis Marked; Monocytes # (A) 0.6 k/uL (0-1.0); Monocytes % (A) 6 %; Neutrophils % (A) 61 %; Platelet Count 363 k/uL (150-450); RBC 5.38 m/uL (3.80-5.40); RDW 17.6 % (11.5-15.5); WBC 11.5 k/uL (3.8-10.6)
[2018-08-09 19:41] LABS: Calcium 9.7 mg/dL (8.4-10.2); Potassium 4.1 mmol/L (3.5-5.1)
== END 2018-08-09 20:31 | disposition home or self-care (01) ==
LOC: EC 17:13
DX: R05 Cough (principal); R07.81 Pleurodynia; R06.02 Shortness of breath; K21.9 Gastro-esophageal reflux disease without esophagitis; E78.5 Hyperlipidemia, unspecified; I10 Essential (primary) hypertension; M19.90 Unspecified osteoarthritis, unspecified site; G40.909 Epilepsy, unspecified, not intractable, without status epilepticus; E07.9 Disorder of thyroid, unspecified; F32.9 Major depressive disorder, single episode, unspecified; F41.9 Anxiety disorder, unspecified; Z79.890 Hormone replacement therapy; Z79.899 Other long term (current) drug therapy; Z88.1 Allergy status to other antibiotic agents; Z88.5 Allergy status to narcotic agent; Z88.2 Allergy status to sulfonamides; Z88.8 Allergy status to other drugs, medicaments and biological substances; Z91.018 Allergy to other foods; Z96.653 Presence of artificial knee joint, bilateral; Z95.0 Presence of cardiac pacemaker; Z95.818 Presence of other cardiac implants and grafts
CPT/HCPCS: 36415; 71046; 80048; 84484; 85025; 87081; 87430; 93005; 99285

== ENCOUNTER 2018-08-13 13:04 | Emergency (ER) | payer MEDICARE ==
[2018-08-13 13:26] VITALS: TEMP 98
--- NOTE | 2018-08-13 14:48 | ED ---
General Adult HPI - General Chief complaint: Shortness of Breath Stated complaint: Dyspnea Time Seen by Provider: 08/13/18 13:30 Source: patient, family, RN notes reviewed Mode of arrival: ambulatory Limitations: no limitations - History of Present Illness Initial comments: Patient is a pleasant 68-year-old female presenting to the emergency department shortness of breath. Symptoms have been occurring for 5 or 6 days. Patient did come to the emergency department and was diagnosed with pneumonia. Patient was started on steroids and antibiotics. Despite this patient states symptoms have worsened. Patient does have cough with occasional yellow sputum. Patient only has discomfort in her chest associated with cough. Otherwise no chest discomfo rt. No leg pain or leg swelling. No history of chronic lung disease. - Related Data Home Medications Medication Instructions Recorded Confirmed Atorvastatin [Lipitor] 10 mg PO HS 09/21/13 08/13/18 Fycompa 4 Mg 4 mg PO HS 09/25/17 08/13/18 Carvedilol [Coreg] 3.125 mg PO BID 11/11/17 08/13/18 Levothyroxine Sodium [Synthroid] 50 mcg PO DAILY 11/11/17 08/13/18 Meclizine [Antivert] 25 mg PO TID PRN 11/11/17 08/13/18 Omeprazole 20 mg PO BID 11/11/17 08/13/18 Potassium Chloride ER [K-Dur 20] 20 meq PO BID 11/11/17 08/13/18 buPROPion XL [Wellbutrin Xl] 150 mg PO HS 11/11/17 08/13/18 levETIRAcetam [Keppra] 1,000 mg PO BID 12/11/17 08/13/18 amLODIPine [Norvasc] 5 mg PO DAILY 01/08/18 08/13/18 levETIRAcetam [Keppra] 250 mg PO QAM 05/21/18 08/13/18 Citalopram Hydrobromide [CeleXA] 40 mg PO DAILY 06/23/18 08/13/18 Ibuprofen [Motrin] 800 mg PO Q8H PRN 06/23/18 08/13/18 hydrOXYzine HCL 25 mg PO TID PRN 06/23/18 08/13/18 Azithromycin [Zithromax Z-pack] See Taper PO DAILY 08/13/18 08/13/18 Previous Rx's Medication Instructions Recorded Albuterol Inhaler [Ventolin Hfa 1 - 2 puff INHALATION RT-Q6H PRN 08/09/18 Inhaler] #1 inhaler Albuterol Inhaler [Ventolin Hfa 2 puff INHALATION Q4HR PRN #1 08/13/18 Inhaler] inhaler Allergies Allergy/AdvReac Type Severity Reaction Status Date / Time ciprofloxacin [From Cipro] Allergy Unknown Verified 08/13/18 15:06 ciprofloxacin HCl Allergy Unknown Verified 08/13/18 15:06 [From Cipro] hydromorphone [From Dilaudid] Allergy Rash/Hives Verified 08/13/18 15:06 soy Allergy Anaphylaxis Verified 08/13/18 15:06 tetracycline [Tetracycline] Allergy Rash/Hives Verified 08/13/18 15:06 tioconazole [From Monistat 1] Allergy Rash/Hives Verified 08/13/18 15:06 codeine AdvReac Rash/Hives Verified 08/13/18 15:06 hydrocodone bitartrate AdvReac Rash/Hives Verified 08/13/18 15:06 [From Lortab] meperidine HCl [From Demerol] AdvReac Rash/Hives Verified 08/13/18 15:06 morphine AdvReac Rash/Hives Verified 08/13/18 15:06 propoxyphene napsylate AdvReac Rash/Hives Verified 08/13/18 15:06 [From Darvocet-N 100] Sulfa (Sulfonamide AdvReac Rash/Hives Verified 08/13/18 15:06 Antibiotics) Review of Systems ROS Statement: Those systems with pertinent positive or pertinent negative responses have been documented in the HPI. ROS Other: All systems not noted in ROS Statement are negative. Constitutional: Denies: fever Eyes: Denies: eye pain ENT: Denies: ear pain Respiratory: Reports: cough, dyspnea Cardiovascular: Reports: as per HPI Endocrine: Reports: fatigue Gastrointestinal: Denies: abdominal pain Genitourinary: Denies: dysuria Musculoskeletal: Denies: back pain Skin: Denies: rash Neurological: Denies: weakness Past Medical History Past Medical History: GERD/Reflux, GI Bleed, Hyperlipidemia, Hypertension, Osteoarthritis (OA), Seizure Disorder, Thyroid Disorder Additional Past Medical History / Comment(s): history of depression History of Any Multi-Drug Resistant Organisms: ESBL Date of last positivie culture/infection: 01/08/18 MDRO Source:: ESBL URINE Past Surgical History: Back Surgery, Cholecystectomy, Heart Catheterization, Hernia Repair, Joint Replacement, Pacemaker, Tonsillectomy Additional Past Surgical History / Comment(s): LAP BAND INSERTED & REMOVED, GASTRIC SLEEVE (2016), GINI TOTAL KNEES, CERVICAL FUSION (2-7), BOWEL RESECTION., INCISIONAL HERNIA'S. STATES SEVERAL HEART CATHS-NO STENTS (DONE AT [facility] & [facility]) Past Anesthesia/Blood Transfusion Reactions: No Reported Reaction Additional Past Anesthesia/Blood Transfusion Reaction / Comment(s): blood transfusion-no reaction Type of Cardiac Device: Permanent Pacemaker Device Placement Date:: 10/12/17 Past Psychological History: Anxiety, Depression Smoking Status: Never smoker Past Alcohol Use History: None Reported Past Drug Use History: None Reported - Past Family History Mother Family Medical History: Pulmonary Embolus Additional Family Medical History / Comment(s): Multiple TIA's. Father Family Medical History: Cancer Additional Family Medical History / Comment(s): Lung Sister(s) Family Medical History: Cancer Additional Family Medical History / Comment(s): OVARIAN CANCER General Exam Limitations: no limitations General appearance: alert, in no apparent distress Head exam: Present: atraumatic Eye exam: Present: normal appearance, PERRL ENT exam: Present: normal oropharynx Neck exam: Present: normal inspection Respiratory exam: Present: normal lung sounds bilaterally Cardiovascular Exam: Present: regular rate, normal rhythm Expanded Peripheral pulses: 2+: Radial (R), Radial (L), Posterior Tibialis (R), Posterior Tibialis (L), Dorsalis Pedis (R), Dorsalis Pedis (L) GI/Abdominal exam: Present: soft. Absent: tenderness Extremities exam: Present: normal inspection. Absent: pedal edema, calf tenderness Neurological exam: Present: alert Psychiatric exam: Present: normal affect, normal mood Skin exam: Present: normal color Course Vital Signs 08/13/18 08/13/18 08/13/18 13:23 14:20 16:00 Temperature 98 F Pulse Rate 63 55 L 54 L Respiratory 20 16 15 Rate Blood Pressure 138/81 141/81 154/80 O2 Sat by Pulse 95 98 99 Oximetry EKG Findings - EKG Comments: EKG Findings:: EKG shows normal sinus rhythm at 60. [place] 192. QRS 92. QTC 494. QTC 494. Left axis. LVH criteria. No acute ST change. Medical Decision Making - Medical Decision Making Patient reevaluated and resting comfortably in bed. Patient and family updated on results and need for follow-up. Patient is comfortable with discharge home. Case was also discussed with Dr. Menendez, who is comfortable with discharge and follow-up. - Lab Data Result diagrams: 08/13/18 14:10 08/13/18 14:10 Lab Results 08/13/18 08/13/18 08/13/18 Range/Units 14:10 14:10 14:10 WBC 6.4 (3.8-10.6) k/uL RBC 5.38 (3.80-5.40) m/uL Hgb 11.6 (11.4-16.0) gm/dL Hct 38.8 (34.0-46.0) % MCV 72.1 L (80.0-100.0) fL MCH 21.6 L (25.0-35.0) pg MCHC 29.9 L (31.0-37.0) g/dL RDW 17.6 H (11.5-15.5) % Plt Count 361 (150-450) k/uL Neutrophils % 55 % Lymphocytes % 30 % Monocytes % 7 % Eosinophils % 5 % Basophils % 1 % Neutrophils # 3.5 (1.3-7.7) k/uL Lymphocytes # 1.9 (1.0-4.8) k/uL Monocytes # 0.4 (0-1.0) k/uL Eosinophils # 0.3 (0-0.7) k/uL Basophils # 0.1 (0-0.2) k/uL Hypochromasia Marked Anisocytosis Slight Microcytosis Moderate PT 9.6 (9.0-12.0) sec INR 0.9 (<1.2) APTT 22.9 (22.0-30.0) sec D-Dimer 0.47 (<0.60) mg/L FEU Sodium 143 (137-145) mmol/L Potassium 3.9 (3.5-5.1) mmol/L Chloride 111 H (98-107) mmol/L Carbon Dioxide 24 (22-30) mmol/L Anion Gap 8 mmol/L BUN 6 L (7-17) mg/dL Creatinine 0.84 (0.52-1.04) mg/dL Est GFR (CKD-EPI)AfAm 82 (>60 ml/min/1.73 sqM) Est GFR (CKD-EPI)NonAf 71 (>60 ml/min/1.73 sqM) Glucose 94 (74-99) mg/dL Plasma Lactic Acid Jamil (0.7-2.0) mmol/L Calcium 9.6 (8.4-10.2) mg/dL Total Bilirubin 0.7 (0.2-1.3) mg/dL AST 22 (14-36) U/L ALT 24 (9-52) U/L Alkaline Phosphatase 130 H (38-126) U/L Troponin I (0.000-0.034) ng/mL NT-Pro-B Natriuret Pep pg/mL Total Protein 7.1 (6.3-8.2) g/dL Albumin 4.2 (3.5-5.0) g/dL 08/13/18 08/13/18 08/13/18 Range/Units 14:10 14:10 14:10 WBC (3.8-10.6) k/uL RBC (3.80-5.40) m/uL Hgb (11.4-16.0) gm/dL Hct (34.0-46.0) % MCV (80.0-100.0) fL MCH (25.0-35.0) pg MCHC (31.0-37.0) g/dL RDW (11.5-15.5) % Plt Count (150-450) k/uL Neutrophils % % Lymphocytes % % Monocytes % % Eosinophils % % Basophils % % Neutrophils # (1.3-7.7) k/uL Lymphocytes # (1.0-4.8) k/uL Monocytes # (0-1.0) k/uL Eosinophils # (0-0.7) k/uL Basophils # (0-0.2) k/uL Hypochromasia Anisocytosis Microcytosis PT (9.0-12.0) sec INR (<1.2) APTT (22.0-30.0) sec D-Dimer (<0.60) mg/L FEU Sodium (137-145) mmol/L Potassium (3.5-5.1) mmol/L Chloride (98-107) mmol/L Carbon Dioxide (22-30) mmol/L Anion Gap mmol/L BUN (7-17) mg/dL Creatinine (0.52-1.04) mg/dL Est GFR (CKD-EPI)AfAm (>60 ml/min/1.73 sqM) Est GFR (CKD-EPI)NonAf (>60 ml/min/1.73 sqM) Glucose (74-99) mg/dL Plasma Lactic Acid Jamil 1.1 (0.7-2.0) mmol/L Calcium (8.4-10.2) mg/dL Total Bilirubin (0.2-1.3) mg/dL AST (14-36) U/L ALT (9-52) U/L Alkaline Phosphatase (38-126) U/L Troponin I <0.012 (0.000-0.034) ng/mL NT-Pro-B Natriuret Pep 107 pg/mL Total Protein (6.3-8.2) g/dL Albumin (3.5-5.0) g/dL - Radiology Data Radiology results: image reviewed (Chest x-ray reveals no acute process) Disposition Clinical Impression: Acute bronchitis Disposition: HOME SELF-CARE Condition: Stable Instructions (If sedation given, give patient instructions): Acute Bronchitis (ED) Additional Instructions: Please follow-up with primary care physician in the next day or 2 for recheck. Return for fevers, difficulty breathing, worsening or changing symptoms or any other concerns. Prescriptions: Albuterol Inhaler [Ventolin Hfa Inhaler] 2 puff INHALATION Q4HR PRN #1 inhaler PRN Reason: Dyspnea Is patient prescribed a controlled substance at d/c from ED?: No Referrals: Cade Menendez DO [Primary Care Provider] - 1-2 days Time of Disposition: 17:04
[2018-08-13 15:11] LABS: Anisocytosis Slight; Basophils # (A) 0.1 k/uL (0-0.2); Basophils % (A) 1 %; Eosinophils # (A) 0.3 k/uL (0-0.7); Eosinophils % (A) 5 %; HCT 38.8 % (34.0-46.0); HGB 11.6 gm/dL (11.4-16.0); Hypochromasia Marked; Lymphocytes # (A) 1.9 k/uL (1.0-4.8); Lymphocytes % (A) 30 %; MCH 21.6 pg (25.0-35.0); MCHC 29.9 g/dL (31.0-37.0); MCV 72.1 fL (80.0-100.0); Mean Platelet Volume 7.2; Microcytosis Moderate; Monocytes # (A) 0.4 k/uL (0-1.0); Monocytes % (A) 7 %; Neutrophils # (A) 3.5 k/uL (1.3-7.7); Neutrophils % (A) 55 %; Platelet Count 361 k/uL (150-450); RBC 5.38 m/uL (3.80-5.40); RDW 17.6 % (11.5-15.5); WBC 6.4 k/uL (3.8-10.6)
[2018-08-13 15:21] LABS: Albumin 4.2 g/dL (3.5-5.0); Calcium 9.6 mg/dL (8.4-10.2); Potassium 3.9 mmol/L (3.5-5.1); Total Bilirubin 0.7 mg/dL (0.2-1.3); Total Protein 7.1 g/dL (6.3-8.2)
[2018-08-13 15:30] LABS: D-Dimer 0.47 mg/L FEU (<0.60); INR 0.9 (<1.2); Partial Thromboplastin Time 22.9 sec (22.0-30.0); Prothrombin Time 9.6 sec (9.0-12.0)
--- NOTE | 2018-08-13 15:44 | XR ---
EXAMINATION TYPE: XR chest 2V DATE OF EXAM: 08/13/2018 COMPARISON: 08/09/2018 HISTORY: Pneumonia and shortness of breath TECHNIQUE: Frontal and lateral views of the chest are obtained. FINDINGS: There is no focal air space opacity, pleural effusion, or pneumothorax seen. Dual lead le ft-sided cardiac device is seen. The cardiac silhouette size is within normal limits. Partial visual ization of a cervical fusion device is noted. Minimal multilevel degenerative change of the thoracic spine with stable very mild mid thoracic compression deformity. IMPRESSION: No acute cardiopulmonary process.
[2018-08-13 17:31] VITALS: BP 141/83; PULSE 62; RESP 18
== END 2018-08-13 17:20 | disposition home or self-care (01) ==
LOC: EC 13:04
DX: J20.9 Acute bronchitis, unspecified (principal); K21.9 Gastro-esophageal reflux disease without esophagitis; E78.5 Hyperlipidemia, unspecified; I10 Essential (primary) hypertension; M19.90 Unspecified osteoarthritis, unspecified site; G40.909 Epilepsy, unspecified, not intractable, without status epilepticus; E07.9 Disorder of thyroid, unspecified; F41.9 Anxiety disorder, unspecified; F32.9 Major depressive disorder, single episode, unspecified; Z95.818 Presence of other cardiac implants and grafts; Z96.653 Presence of artificial knee joint, bilateral; Z95.0 Presence of cardiac pacemaker; Z87.01 Personal history of pneumonia (recurrent); Z79.890 Hormone replacement therapy; Z79.899 Other long term (current) drug therapy; Z88.1 Allergy status to other antibiotic agents; Z88.5 Allergy status to narcotic agent; Z91.018 Allergy to other foods; Z88.2 Allergy status to sulfonamides
CPT/HCPCS: 36415; 71046; 80053; 83605; 83880; 84484; 85025; 85379; 85610; 85730; 87040; 93005; 99285

== ENCOUNTER 2018-10-15 10:44 | Emergency (ER) | payer MEDICARE ==
[2018-10-15 11:05] VITALS: TEMP 98
--- NOTE | 2018-10-15 11:16 | ED ---
Upper Extremity HPI - General Chief Complaint: Extremity Injury, Upper Stated Complaint: lt arm pain Time Seen by Provider: 10/15/18 11:06 Source: patient, RN notes reviewed, old records reviewed Mode of arrival: ambulatory Limitations: no limitations - History of Present Illness Initial Comments: There is a 68-year-old female who presents emergency department today with her sister. She complains of left shoulder pain 1 hour prior to arrival she woke up today. She states that she sleeps with a large dog he felt that her dog could've caused some injury to her arm. She denies any known trauma. Patient states that she has no chest pain or shortness of breath. She states that she has no peripheral paresthesias. Patient states that she has some tenderness over the back of her shoulder clavicle. - Related Data Home Medications Medication Instructions Recorded Confirmed Atorvastatin [Lipitor] 10 mg PO HS 09/21/13 08/13/18 Fycompa 4 Mg 4 mg PO HS 09/25/17 08/13/18 Carvedilol [Coreg] 3.125 mg PO BID 11/11/17 08/13/18 Levothyroxine Sodium [Synthroid] 50 mcg PO DAILY 11/11/17 08/13/18 Meclizine [Antivert] 25 mg PO TID PRN 11/11/17 08/13/18 Omeprazole 20 mg PO BID 11/11/17 08/13/18 Potassium Chloride ER [K-Dur 20] 20 meq PO BID 11/11/17 08/13/18 buPROPion XL [Wellbutrin Xl] 150 mg PO HS 11/11/17 08/13/18 levETIRAcetam [Keppra] 1,000 mg PO BID 12/11/17 08/13/18 amLODIPine [Norvasc] 5 mg PO DAILY 01/08/18 08/13/18 levETIRAcetam [Keppra] 250 mg PO QAM 05/21/18 08/13/18 Citalopram Hydrobromide [CeleXA] 40 mg PO DAILY 06/23/18 08/13/18 Ibuprofen [Motrin] 800 mg PO Q8H PRN 06/23/18 08/13/18 hydrOXYzine HCL 25 mg PO TID PRN 06/23/18 08/13/18 Azithromycin [Zithromax Z-pack] See Taper PO DAILY 08/13/18 08/13/18 Previous Rx's Medication Instructions Recorded Albuterol Inhaler [Ventolin Hfa 1 - 2 puff INHALATION RT-Q6H PRN 08/09/18 Inhaler] #1 inhaler Albuterol Inhaler [Ventolin Hfa 2 puff INHALATION Q4HR PRN #1 08/13/18 Inhaler] inhaler Ibuprofen 600 mg PO TID #20 tablet 10/15/18 Allergies Allergy/AdvReac Type Severity Reaction Status Date / Time ciprofloxacin [From Cipro] Allergy Unknown Verified 08/13/18 15:06 ciprofloxacin HCl Allergy Unknown Verified 08/13/18 15:06 [From Cipro] hydromorphone [From Dilaudid] Allergy Rash/Hives Verified 08/13/18 15:06 soy Allergy Anaphylaxis Verified 08/13/18 15:06 tetracycline [Tetracycline] Allergy Rash/Hives Verified 08/13/18 15:06 tioconazole [From Monistat 1] Allergy Rash/Hives Verified 08/13/18 15:06 codeine AdvReac Rash/Hives Verified 08/13/18 15:06 hydrocodone bitartrate AdvReac Rash/Hives Verified 08/13/18 15:06 [From Lortab] meperidine HCl [From Demerol] AdvReac Rash/Hives Verified 08/13/18 15:06 morphine AdvReac Rash/Hives Verified 08/13/18 15:06 propoxyphene napsylate AdvReac Rash/Hives Verified 08/13/18 15:06 [From Darvocet-N 100] Sulfa (Sulfonamide AdvReac Rash/Hives Verified 08/13/18 15:06 Antibiotics) Review of Systems ROS Statement: Those systems with pertinent positive or pertinent negative responses have been documented in the HPI. ROS Other: All systems not noted in ROS Statement are negative. Past Medical History Past Medical History: GERD/Reflux, GI Bleed, Hyperlipidemia, Hypertension, Osteoarthritis (OA), Seizure Disorder, Thyroid Disorder Additional Past Medical History / Comment(s): history of depression History of Any Multi-Drug Resistant Organisms: ESBL Date of last positivie culture/infection: 01/08/18 MDRO Source:: ESBL URINE Past Surgical History: Back Surgery, Cholecystectomy, Heart Catheterization, Hernia Repair, Joint Replacement, Pacemaker, Tonsillectomy Additional Past Surgical History / Comment(s): LAP BAND INSERTED & REMOVED, GASTRIC SLEEVE (2016), GINI TOTAL KNEES, CERVICAL FUSION (2-7), BOWEL RESECTION., INCISIONAL HERNIA'S. STATES SEVERAL HEART CATHS-NO STENTS (DONE AT [facility] & [facility]) Past Anesthesia/Blood Transfusion Reactions: No Reported Reaction Additional Past Anesthesia/Blood Transfusion Reaction / Comment(s): blood transfusion-no reaction Type of Cardiac Device: Permanent Pacemaker Device Placement Date:: 10/12/17 Past Psychological History: Anxiety, Depression Smoking Status: Never smoker Past Alcohol Use History: None Reported Past Drug Use History: None Reported - Past Family History Mother Family Medical History: Pulmonary Embolus Additional Family Medical History / Comment(s): Multiple TIA's. Father Family Medical History: Cancer Additional Family Medical History / Comment(s): Lung Sister(s) Family Medical History: Cancer Additional Family Medical History / Comment(s): OVARIAN CANCER General Exam - General Exam Comments Initial Comments: pleasant 68-year-old female. Alert and oriented 3. No distress. Limitations: no limitations General appearance: alert, in no apparent distress Head exam: Present: atraumatic, normocephalic, normal inspection Eye exam: Present: normal appearance, PERRL, EOMI. Absent: scleral icterus, conjunctival injection, periorbital swelling ENT exam: Present: normal exam, mucous membranes moist Neck exam: Present: normal inspection. Absent: tenderness, meningismus, lymphadenopathy Respiratory exam: Present: normal lung sounds bilaterally. Absent: respiratory distress, wheezes, rales, rhonchi, stridor Cardiovascular Exam: Present: regular rate, normal rhythm, normal heart sounds. Absent: systolic murmur, diastolic murmur, rubs, gallop, clicks GI/Abdominal exam: Present: soft, normal bowel sounds. Absent: distended, tenderness, guarding, rebound, rigid Extremities exam: Present: normal inspection, full ROM, normal capillary refill. Absent: tenderness, pedal edema, joint swelling, calf tenderness Back exam: Present: normal inspection Neurological exam: Present: alert, oriented X3, CN II-XII intact Psychiatric exam: Present: normal affect, normal mood Skin exam: Present: warm, dry, intact, normal color. Absent: rash Course Vital Signs 10/15/18 11:02 Temperature 98 F Pulse Rate 65 Respiratory 21 Rate Blood Pressure 146/87 O2 Sat by Pulse 95 Oximetry Medical Decision Making - Radiology Data Radiology results: report reviewed Patient's EKG performed at 1210 showed sinus bradycardia, Monopril voltage care for LVH. Nonspecific T-wave abnormality. Abnormal EKG. Ventricular rate of 50 beats were minute period. Was 188 ms. QS duration is 90 ms. QT QTc is 466/457 ms. Chest x-ray is negative for any acute cardio pulmonary process. No acute f racture dislocation left shoulder. Mild glenohumeral and acromioclavicular arthropathy. Diffuse osseous to visualization. Disposition Clinical Impression: Pain of left shoulder joint on movement Disposition: HOME SELF-CARE Condition: Good Instructions (If sedation given, give patient instructions): Arm Pain (ED) Additional Instructions: Patient is alternate between heat and ice over the shoulder and neck. Have close follow-up with her primary care doctor and administrative specialist. Return to the emergency department if any alarming signs or symptoms occur. Prescriptions: Ibuprofen 600 mg PO TID #20 tablet Is patient prescribed a controlled substance at d/c from ED?: No Referrals: Cade Menendez DO [Primary Care Provider] - 1-2 days Atilio Swan DO [Medical Doctor] - 1-2 days Time of Disposition: 12:21
--- NOTE | 2018-10-15 11:45 | XR ---
EXAMINATION TYPE: XR shoulder complete LT DATE OF EXAM: 10/15/2018 CLINICAL HISTORY: Left shoulder pain without known injury. TECHNIQUE: Three views of the left shoulder are obtained. COMPARISON: None. FINDINGS: There is diffuse osseous demineralization. There is no acute fracture/dislocation evident in the left shoulder. The acromioclavicular and glenohumeral joint spaces demonstrate mild joint spa ce narrowing with small marginal osteophytes of the acromioclavicular joint. External leads overlying the left shoulder and chest. The visualized ribs are intact and unremarkable. IMPRESSION: There is no acute fracture or dislocation in the left shoulder. Mild glenohumeral and ac romioclavicular arthropathy. Diffuse osseous demineralization.
--- NOTE | 2018-10-15 11:48 | XR ---
EXAMINATION TYPE: XR chest 2V DATE OF EXAM: 10/15/2018 COMPARISON: Prior chest x-ray 08/13/2018 HISTORY: Pain TECHNIQUE: Frontal and lateral views of the chest are obtained. FINDINGS: Patient is rotated. Postop changes are noted in the cervical spine. There is a generator i n left pectoral region, leads are present in the right atrium and ventricle. No evident pneumothorax or pleural effusion. Heart size is likely stable accounting for differences in technique. Aorta is de nse. Pulmonary vascularity and cristela within normal limits. IMPRESSION: No acute cardiopulmonary process.
[2018-10-15 12:57] VITALS: BP 140/80; PULSE 62; RESP 18
== END 2018-10-15 12:57 | disposition home or self-care (01) ==
LOC: EC 10:44
DX: M25.512 Pain in left shoulder (principal); R00.1 Bradycardia, unspecified; K21.9 Gastro-esophageal reflux disease without esophagitis; I10 Essential (primary) hypertension; G40.909 Epilepsy, unspecified, not intractable, without status epilepticus; E78.5 Hyperlipidemia, unspecified; E07.9 Disorder of thyroid, unspecified; M19.90 Unspecified osteoarthritis, unspecified site; F41.9 Anxiety disorder, unspecified; F32.9 Major depressive disorder, single episode, unspecified; Z95.818 Presence of other cardiac implants and grafts; Z96.653 Presence of artificial knee joint, bilateral; Z95.0 Presence of cardiac pacemaker; Z79.890 Hormone replacement therapy; Z79.899 Other long term (current) drug therapy; Z88.1 Allergy status to other antibiotic agents; Z88.5 Allergy status to narcotic agent; Z91.018 Allergy to other foods; Z88.2 Allergy status to sulfonamides
CPT/HCPCS: 71046; 93005; 99284

== ENCOUNTER 2018-11-07 17:31 | Emergency (ER) | payer MEDICARE ==
[2018-11-07] MEDS ORDERED: SODIUM CHLORIDE 0.9% 1,000 ML IV STA (17:34)
[2018-11-07] MEDS ORDERED: IPRATROPIUM-ALBUTEROL 3 ML NEB INHALATION STA (17:34)
--- NOTE | 2018-11-07 17:42 | ED ---
SOB HPI - General Source: patient, EMS, RN notes reviewed, old records reviewed Mode of arrival: EMS - History of Present Illness MD Complaint: shortness of breath <Juan Alberto Brian - Last Filed: 11/07/18 21:11> <Kal York - Last Filed: 11/07/18 21:35> - General Stated Complaint: Depression Time Seen by Provider: 11/07/18 17:31 - History of Present Illness Initial Comments: This is a 67-year-old female history depression among other medical issues who is brought in by EMS initially because of shortness of breath with it and route she did admit that she was feeling depressed. Apparently her sister 6 days ago. She been feeling depressed no definite thoughts of suicide no drugs or alcohol reported. She does have exertional dyspnea she states. She does have a history of (Juan Alberto Brian) - Related Data Home Medications Medication Instructions Recorded Confirmed Atorvastatin [Lipitor] 10 mg PO HS 09/21/13 11/07/18 Fycompa 4 Mg 4 mg PO HS 09/25/17 11/07/18 Carvedilol [Coreg] 3.125 mg PO BID 11/11/17 11/07/18 Levothyroxine Sodium [Synthroid] 50 mcg PO DAILY 11/11/17 11/07/18 Meclizine [Antivert] 25 mg PO TID PRN 11/11/17 11/07/18 Omeprazole 20 mg PO BID 11/11/17 11/07/18 Potassium Chloride ER [K-Dur 20] 20 meq PO BID 11/11/17 11/07/18 buPROPion XL [Wellbutrin Xl] 150 mg PO HS 11/11/17 11/07/18 levETIRAcetam [Keppra] 1,000 mg PO BID 12/11/17 11/07/18 amLODIPine [Norvasc] 5 mg PO DAILY 01/08/18 11/07/18 Citalopram Hydrobromide [CeleXA] 40 mg PO DAILY 06/23/18 11/07/18 hydrOXYzine HCL 25 mg PO TID PRN 06/23/18 11/07/18 Baclofen [Lioresal] 10 mg PO BID 11/07/18 11/07/18 LORazepam [Ativan] 0.5 mg PO HS 11/07/18 11/07/18 Zolpidem [Ambien] 10 mg PO HS 11/07/18 11/07/18 Previous Rx's Medication Instructions Recorded Albuterol Inhaler [Ventolin Hfa 1 - 2 puff INHALATION RT-Q6H PRN 08/09/18 Inhaler] #1 inhaler Ibuprofen 600 mg PO TID #20 tablet 10/15/18 Allergies Allergy/AdvReac Type Severity Reaction Status Date / Time ciprofloxacin [From Cipro] Allergy Unknown Verified 11/07/18 19:26 ciprofloxacin HCl Allergy Unknown Verified 11/07/18 19:26 [From Cipro] hydromorphone [From Dilaudid] Allergy Rash/Hives Verified 11/07/18 19:26 soy Allergy Anaphylaxis Verified 11/07/18 19:26 tetracycline [Tetracycline] Allergy Rash/Hives Verified 11/07/18 19:26 tioconazole [From Monistat 1] Allergy Rash/Hives Verified 11/07/18 19:26 codeine AdvReac Rash/Hives Verified 11/07/18 19:26 hydrocodone bitartrate AdvReac Rash/Hives Verified 11/07/18 19:26 [From Lortab] meperidine HCl [From Demerol] AdvReac Rash/Hives Verified 11/07/18 19:26 morphine AdvReac Rash/Hives Verified 11/07/18 19:26 propoxyphene napsylate AdvReac Rash/Hives Verified 11/07/18 19:26 [From Darvocet-N 100] Sulfa (Sulfonamide AdvReac Rash/Hives Verified 11/07/18 19:26 Antibiotics) Review of Systems ROS Other: All systems not noted in ROS Statement are negative. <Juan Alberto Brian - Last Filed: 11/07/18 21:11> ROS Other: All systems not noted in ROS Statement are negative. <Kal York - Last Filed: 11/07/18 21:35> ROS Statement: Those systems with pertinent positive or pertinent negative responses have been documented in the HPI. Past Medical History Past Medical History: GERD/Reflux, GI Bleed, Hyperlipidemia, Hypertension, Osteoarthritis (OA), Seizure Disorder, Thyroid Disorder Additional Past Medical History / Comment(s): history of depression History of Any Multi-Drug Resistant Organisms: ESBL Date of last positivie culture/infection: 01/08/18 MDRO Source:: ESBL URINE Past Surgical History: Back Surgery, Cholecystectomy, Heart Catheterization, Hernia Repair, Joint Replacement, Pacemaker, Tonsillectomy Additional Past Surgical History / Comment(s): LAP BAND INSERTED & REMOVED, GASTRIC SLEEVE (2016), GINI TOTAL KNEES, CERVICAL FUSION (2-7), BOWEL RESECTION., INCISIONAL HERNIA'S. STATES SEVERAL HEART CATHS-NO STENTS (DONE AT [facility] & [facility]) Past Anesthesia/Blood Transfusion Reactions: No Reported Reaction Additional Past Anesthesia/Blood Transfusion Reaction / Comment(s): blood transfusion-no reaction Type of Cardiac Device: Permanent Pacemaker Device Placement Date:: 10/12/17 Past Psychological History: Anxiety, Depression Smoking Status: Never smoker Past Alcohol Use History: None Reported Past Drug Use History: None Reported - Past Family History Mother Family Medical History: Pulmonary Embolus Additional Family Medical History / Comment(s): Multiple TIA's. Father Family Medical History: Cancer Additional Family Medical History / Comment(s): Lung Sister(s) Family Medical History: Cancer Additional Family Medical History / Comment(s): OVARIAN CANCER <Juan Alberto Brian Filed: 11/07/18 21:11> General Exam General appearance: alert, anxious Head exam: Present: atraumatic, normocephalic, normal inspection Eye exam: Present: normal appearance, PERRL, EOMI. Absent: scleral icterus, conjunctival injection, periorbital swelling ENT exam: Present: normal exam, mucous membranes moist Neck exam: Present: normal inspection. Absent: tenderness, meningismus, lymphadenopathy Respiratory exam: Present: wheezes, decreased breath sounds. Absent: respiratory distress, rales, rhonchi, stridor Cardiovascular Exam: Present: regular rate, normal rhythm, normal heart sounds. Absent: systolic murmur, diastolic murmur, rubs, gallop, clicks GI/Abdominal exam: Present: soft, normal bowel sounds. Absent: distended, tenderness, guarding, rebound, rigid Extremities exam: Present: normal inspection, full ROM, normal capillary refill. Absent: tenderness, pedal edema, joint swelling, calf tenderness Back exam: Present: normal inspection Neurological exam: Present: alert, oriented X3, CN II-XII intact Psychiatric exam: Present: depressed, flat affect Skin exam: Present: warm, dry, intact, normal color. Absent: rash <Juan Alberto Brian Filed: 11/07/18 21:11> - General Exam Comments Initial Comments: Physical well-developed well-nourished awake alert oriented history female (RocJuan Alberto) Course <Juan Alberto Brian - Last Filed: 11/07/18 21:11> Vital Signs 11/07/18 11/07/18 11/07/18 17:36 18:10 18:18 Temperature 97.8 F Pulse Rate 74 63 64 Respiratory 16 14 14 Rate Blood Pressure 141/82 O2 Sat by Pulse 96 Oximetry 11/07/18 19:56 Temperature Pulse Rate 74 Respiratory 16 Rate Blood Pressure 117/71 O2 Sat by Pulse 96 Oximetry - Reevaluation(s) Reevaluation #1: 11/07/18 21:11 The patient's case is endorsed Dr. York at shift change pending psychiatric evaluation and is medically cleared (Juan Alberto Brian) Medical Decision Making - Lab Data Result diagrams: 11/07/18 18:08 11/07/18 18:08 - EKG Data -: EKG Interpreted by Me EKG shows normal: sinus rhythm (EKG shows sinus rhythm a 73. Interval 188 QRS duration 86 QT since QTC 434/478 also prescription. Demonstrating LVH nonspecific anterior configuration) - Radiology Data Radiology results: report reviewed (I did review the imaging and report no acute findings.), image reviewed <Juan Alberto Brian - Last Filed: 11/07/18 21:11> - Lab Data Result diagrams: 11/07/18 18:08 11/07/18 18:08 <Kal York - Last Filed: 11/07/18 21:35> - Lab Data Lab Results 11/07/18 11/07/18 11/07/18 Range/Units 18:02 18:08 18:08 WBC 7.8 (3.8-10.6) k/uL RBC 5.35 (3.80-5.40) m/uL Hgb 11.3 L (11.4-16.0) gm/dL Hct 37.2 (34.0-46.0) % MCV 69.6 L (80.0-100.0) fL MCH 21.1 L (25.0-35.0) pg MCHC 30.3 L (31.0-37.0) g/dL RDW 16.8 H (11.5-15.5) % Plt Count 347 (150-450) k/uL Neutrophils % 67 % Lymphocytes % 21 % Monocytes % 6 % Eosinophils % 4 % Basophils % 1 % Neutrophils # 5.2 (1.3-7.7) k/uL Lymphocytes # 1.7 (1.0-4.8) k/uL Monocytes # 0.5 (0-1.0) k/uL Eosinophils # 0.3 (0-0.7) k/uL Basophils # 0.1 (0-0.2) k/uL Hypochromasia Marked Anisocytosis Slight Microcytosis Marked PT (9.0-12.0) sec INR (<1.2) APTT (22.0-30.0) sec Sodium 141 (137-145) mmol/L Potassium 4.5 (3.5-5.1) mmol/L Chloride 108 H (98-107) mmol/L Carbon Dioxide 22 (22-30) mmol/L Anion Gap 11 mmol/L BUN 10 (7-17) mg/dL Creatinine 0.81 (0.52-1.04) mg/dL Est GFR (CKD-EPI)AfAm 86 (>60 ml/min/1.73 sqM) Est GFR (CKD-EPI)NonAf 75 (>60 ml/min/1.73 sqM) Glucose 111 H (74-99) mg/dL Calcium 9.3 (8.4-10.2) mg/dL Magnesium 2.5 H (1.6-2.3) mg/dL Total Bilirubin 0.9 (0.2-1.3) mg/dL AST 24 (14-36) U/L ALT 20 (9-52) U/L Alkaline Phosphatase 151 H (38-126) U/L Troponin I (0.000-0.034) ng/mL NT-Pro-B Natriuret Pep pg/mL Total Protein 7.4 (6.3-8.2) g/dL Albumin 4.4 (3.5-5.0) g/dL Urine Opiates Screen Not Detected (NotDetected) Ur Oxycodone Screen Not Detected (NotDetected) Urine Methadone Screen Not Detected (NotDetected) Ur Propoxyphene Screen Not Detected (NotDetected) Ur Barbiturates Screen Not Detected (NotDetected) U Tricyclic Antidepress Not Detected (NotDetected) Ur Phencyclidine Scrn Not Detected (NotDetected) Ur Amphetamines Screen Not Detected (NotDetected) U Methamphetamines Scrn Not Detected (NotDetected) U Benzodiazepines Scrn Detected H (NotDetected) Urine Cocaine Screen Not Detected (NotDetected) U Marijuana (THC) Screen Not Detected (NotDetected) Serum Alcohol <10 mg/dL 11/07/18 11/07/18 11/07/18 Range/Units 18:08 18:08 18:08 WBC (3.8-10.6) k/uL RBC (3.80-5.40) m/uL Hgb (11.4-16.0) gm/dL Hct (34.0-46.0) % MCV (80.0-100.0) fL MCH (25.0-35.0) pg MCHC (31.0-37.0) g/dL RDW (11.5-15.5) % Plt Count (150-450) k/uL Neutrophils % % Lymphocytes % % Monocytes % % Eosinophils % % Basophils % % Neutrophils # (1.3-7.7) k/uL Lymphocytes # (1.0-4.8) k/uL Monocytes # (0-1.0) k/uL Eosinophils # (0-0.7) k/uL Basophils # (0-0.2) k/uL Hypochromasia Anisocytosis Microcytosis PT 9.6 (9.0-12.0) sec INR 0.9 (<1.2) APTT 23.7 (22.0-30.0) sec Sodium (137-145) mmol/L Potassium (3.5-5.1) mmol/L Chloride (98-107) mmol/L Carbon Dioxide (22-30) mmol/L Anion Gap mmol/L BUN (7-17) mg/dL Creatinine (0.52-1.04) mg/dL Est GFR (CKD-EPI)AfAm (>60 ml/min/1.73 sqM) Est GFR (CKD-EPI)NonAf (>60 ml/min/1.73 sqM) Glucose (74-99) mg/dL Calcium (8.4-10.2) mg/dL Magnesium (1.6-2.3) mg/dL Total Bilirubin (0.2-1.3) mg/dL AST (14-36) U/L ALT (9-52) U/L Alkaline Phosphatase (38-126) U/L Troponin I <0.012 (0.000-0.034) ng/mL NT-Pro-B Natriuret Pep 60 pg/mL Total Protein (6.3-8.2) g/dL Albumin (3.5-5.0) g/dL Urine Opiates Screen (NotDetected) Ur Oxycodone Screen (NotDetected) Urine Methadone Screen (NotDetected) Ur Propoxyphene Screen (NotDetected) Ur Barbiturates Screen (NotDetected) U Tricyclic Antidepress (NotDetected) Ur Phencyclidine Scrn (NotDetected) Ur Amphetamines Screen (NotDetected) U Methamphetamines Scrn (NotDetected) U Benzodiazepines Scrn (NotDetected) Urine Cocaine Screen (NotDetected) U Marijuana (THC) Screen (NotDetected) Serum Alcohol mg/dL Disposition <Juan Alberto Brian - Last Filed: 11/07/18 21:11> Is patient prescribed a controlled substance at d/c from ED?: No <Kal York - Last Filed: 11/07/18 21:35> Clinical Impression: Depression, Acute bronchospasm Disposition: HOME SELF-CARE Condition: Good Instructions (If sedation given, give patient instructions): Bronchospasm (ED), Mood Disorders (ED) Referrals: Cade Menendez DO [Primary Care Provider] - 1-2 days
[2018-11-07 17:43] VITALS: TEMP 97.8
[2018-11-07 18:22] LABS: Amphetamine Screen,Urine Not Detected (NotDetected); Barbiturate Screen,Urine Not Detected (NotDetected); Benzodiazepines Screen,Urine Detected (NotDetected); Cocaine Screen,Urine Not Detected (NotDetected); Methadone Screen, Urine Not Detected (NotDetected); Opiate Screen,Urine Not Detected (NotDetected); Oxycodone Screen, Urine Not Detected (NotDetected); Phencyclidine Screen,Urine Not Detected (NotDetected); Tricyclic Antidepressant,Urine Not Detected (NotDetected); Urn Cannabinoid Scrn Not Detected (NotDetected)
[2018-11-07 18:33] LABS: Anisocytosis Slight; Basophils # (A) 0.1 k/uL (0-0.2); Basophils % (A) 1 %; Eosinophils # (A) 0.3 k/uL (0-0.7); Eosinophils % (A) 4 %; HCT 37.2 % (34.0-46.0); HGB 11.3 gm/dL (11.4-16.0); Hypochromasia Marked; Lymphocytes # (A) 1.7 k/uL (1.0-4.8); Lymphocytes % (A) 21 %; MCH 21.1 pg (25.0-35.0); MCHC 30.3 g/dL (31.0-37.0); MCV 69.6 fL (80.0-100.0); Mean Platelet Volume 6.8; Microcytosis Marked; Monocytes # (A) 0.5 k/uL (0-1.0); Monocytes % (A) 6 %; Neutrophils # (A) 5.2 k/uL (1.3-7.7); Neutrophils % (A) 67 %; Platelet Count 347 k/uL (150-450); RBC 5.35 m/uL (3.80-5.40); RDW 16.8 % (11.5-15.5); WBC 7.8 k/uL (3.8-10.6)
[2018-11-07 18:37] LABS: INR 0.9 (<1.2); Partial Thromboplastin Time 23.7 sec (22.0-30.0); Prothrombin Time 9.6 sec (9.0-12.0)
[2018-11-07 18:47] LABS: ALT 20 U/L (9-52); AST 24 U/L (14-36); African American GFR (CKD) 86 (>60 ml/min/1.73 sqM); Albumin 4.4 g/dL (3.5-5.0); Alcohol <10 mg/dL; Alkaline Phosphatase 151 U/L (38-126); Anion Gap 11 mmol/L; Blood Urea Nitrogen 10 mg/dL (7-17); Calcium 9.3 mg/dL (8.4-10.2); Carbon Dioxide 22 mmol/L (22-30); Chloride 108 mmol/L (98-107); Glucose 111 mg/dL (74-99); Magnesium 2.5 mg/dL (1.6-2.3); Potassium 4.5 mmol/L (3.5-5.1); Sodium 141 mmol/L (137-145); Total Bilirubin 0.9 mg/dL (0.2-1.3); Total Protein 7.4 g/dL (6.3-8.2)
--- NOTE | 2018-11-07 19:18 | XR ---
EXAMINATION TYPE: XR chest 2V DATE OF EXAM: 11/07/2018 COMPARISON: 10/15/2018 HISTORY: Dyspnea TECHNIQUE: Frontal and lateral views of the chest are obtained. FINDINGS: There is no heart failure nor confluent pneumonic infiltrate. Costophrenic angles are hector r. There is a left axillary pacemaker. There is cervical spine fusion surgery. There are no hilar mas ses. IMPRESSION: No active cardiopulmonary disease. No change.
[2018-11-07 19:57] VITALS: RESP 16
[2018-11-07 21:38] VITALS: BP 138/74; PULSE 81
== END 2018-11-07 21:40 | disposition home or self-care (01) ==
LOC: EC 17:31
DX: J98.01 Acute bronchospasm (principal); F32.9 Major depressive disorder, single episode, unspecified; K21.9 Gastro-esophageal reflux disease without esophagitis; I10 Essential (primary) hypertension; E78.5 Hyperlipidemia, unspecified; G40.909 Epilepsy, unspecified, not intractable, without status epilepticus; F41.9 Anxiety disorder, unspecified; Z79.02 Long term (current) use of antithrombotics/antiplatelets; Z79.890 Hormone replacement therapy; Z79.899 Other long term (current) drug therapy; Z88.1 Allergy status to other antibiotic agents; Z88.5 Allergy status to narcotic agent; Z91.018 Allergy to other foods; Z88.8 Allergy status to other drugs, medicaments and biological substances; Z88.2 Allergy status to sulfonamides; Z95.0 Presence of cardiac pacemaker; Z95.5 Presence of coronary angioplasty implant and graft; Z98.2 Presence of cerebrospinal fluid drainage device
CPT/HCPCS: 99285; 82075; 36415; 94640; 93005; 83880; 80053; 83735; 84484; 85025; 85610; 85730; 80306; 71046; 96360; 96361 ×2; G0480; 80320

== ENCOUNTER 2019-01-21 12:34 | Observation (INO) | payer MEDICARE ==
[2019-01-21] MEDS ORDERED: KETOROLAC 30 MG/ML 1 ML VIAL IVP STA (13:03)
[2019-01-21] MEDS ORDERED: SODIUM CHLORIDE 0.9% 1,000 ML IV STA (13:03)
--- NOTE | 2019-01-21 13:22 | ED ---
Abdominal Pain HPI - General Source: patient, RN notes reviewed Mode of arrival: wheelchair Limitations: no limitations <Alan Nava - Last Filed: 01/21/19 15:42> <Bette Harrison - Last Filed: 01/26/19 12:27> - General Chief Complaint: Abdominal Pain Stated Complaint: Abd pain Time Seen by Provider: 01/21/19 12:42 - History of Present Illness Initial Comments: 68-year-old female presents emergency Department with chief complaint of abdominal pain. Patient states she woke up states that she's had some gradual increasing diffuse abdominal pain. Patient states she's had multiple abdominal surgeries including prior LAP-BAND with removal and gastric sleeve surgery, cholecystectomy and bowel resection due to diverticulitis. Patient states that she currently sees Dr. Arceo. In states that pain is unbearable she does not that she's had diarrhea but this is been ongoing after her gastric sleeve surgery. Patient denies any dysuria, hematuria, melena or hematochezia. Patient denies chest pain, cough, URI symptoms. Patient states that she's had on-and-off fevers. (Alan Nava) - Related Data Home Medications Medication Instructions Recorded Confirmed Atorvastatin [Lipitor] 10 mg PO HS 09/21/13 01/21/19 Fycompa 4 Mg 4 mg PO HS 09/25/17 01/21/19 Carvedilol [Coreg] 3.125 mg PO BID 11/11/17 01/21/19 Levothyroxine Sodium [Synthroid] 50 mcg PO DAILY 11/11/17 01/21/19 Meclizine [Antivert] 25 mg PO TID PRN 11/11/17 01/21/19 Omeprazole 20 mg PO BID 11/11/17 01/21/19 Potassium Chloride ER [K-Dur 20] 20 meq PO BID 11/11/17 01/21/19 buPROPion XL [Wellbutrin XL] 150 mg PO HS 11/11/17 01/21/19 levETIRAcetam [Keppra] 1,000 mg PO BID 12/11/17 01/21/19 amLODIPine [Norvasc] 5 mg PO DAILY 01/08/18 01/21/19 Citalopram Hydrobromide [CeleXA] 40 mg PO DAILY 06/23/18 01/21/19 hydrOXYzine HCL 25 mg PO TID PRN 06/23/18 01/21/19 LORazepam [Ativan] 0.5 mg PO HS 11/07/18 01/21/19 Zolpidem [Ambien] 10 mg PO HS 11/07/18 01/21/19 Albuterol Inhaler [Ventolin Hfa 2 puff INHALATION RT-Q6H PRN 01/21/19 01/21/19 Inhaler] Previous Rx's Medication Instructions Recorded Ibuprofen 600 mg PO TID #20 tablet 10/15/18 Allergies Allergy/AdvReac Type Severity Reaction Status Date / Time ciprofloxacin [From Cipro] Allergy Unknown Verified 01/21/19 16:14 ciprofloxacin HCl Allergy Unknown Verified 01/21/19 16:14 [From Cipro] codeine Allergy Rash/Hives Verified 01/21/19 16:14 hydrocodone bitartrate Allergy Rash/Hives Verified 01/21/19 16:14 [From Lortab] hydromorphone [From Dilaudid] Allergy Rash/Hives Verified 01/21/19 16:14 meperidine HCl [From Demerol] Allergy Rash/Hives Verified 01/21/19 16:14 morphine Allergy Rash/Hives Verified 01/21/19 16:14 propoxyphene napsylate Allergy Rash/Hives Verified 01/21/19 16:14 [From Darvocet-N 100] soy Allergy Anaphylaxis Verified 01/21/19 16:14 Sulfa (Sulfonamide Allergy Rash/Hives Verified 01/21/19 16:14 Antibiotics) tetracycline [Tetracycline] Allergy Rash/Hives Verified 01/21/19 16:14 tioconazole [From Monistat 1] Allergy Rash/Hives Verified 01/21/19 16:14 Review of Systems ROS Other: All systems not noted in ROS Statement are negative. <Alan Nava - Last Filed: 01/21/19 15:42> ROS Other: All systems not noted in ROS Statement are negative. <Bette Harrison - Last Filed: 01/26/19 12:27> ROS Statement: Those systems with pertinent positive or pertinent negative responses have been documented in the HPI. Past Medical History Past Medical History: GERD/Reflux, GI Bleed, Hyperlipidemia, Hypertension, Osteoarthritis (OA), Seizure Disorder, Thyroid Disorder Additional Past Medical History / Comment(s): history of depression History of Any Multi-Drug Resistant Organisms: ESBL Date of last positivie culture/infection: 01/08/18 MDRO Source:: ESBL URINE Past Surgical History: Back Surgery, Cholecystectomy, Heart Catheterization, Hernia Repair, Joint Replacement, Pacemaker, Tonsillectomy Additional Past Surgical History / Comment(s): LAP BAND INSERTED & REMOVED, GASTRIC SLEEVE (2016), GINI TOTAL KNEES, CERVICAL FUSION (2-7), BOWEL RESECTION., INCISIONAL HERNIA'S. STATES SEVERAL HEART CATHS-NO STENTS (DONE AT [facility] & [facility]) Past Anesthesia/Blood Transfusion Reactions: No Reported Reaction Additional Past Anesthesia/Blood Transfusion Reaction / Comment(s): blood transfusion-no reaction Type of Cardiac Device: Permanent Pacemaker Device Placement Date:: 10/12/17 Past Psychological History: Anxiety, Depression Smoking Status: Never smoker Past Alcohol Use History: None Reported Past Drug Use History: None Reported - Past Family History Mother Family Medical History: Pulmonary Embolus Additional Family Medical History / Comment(s): Multiple TIA's. Father Family Medical History: Cancer Additional Family Medical History / Comment(s): Lung Sister(s) Family Medical History: Cancer Additional Family Medical History / Comment(s): OVARIAN CANCER <Alan Nava - Last Filed: 01/21/19 15:42> General Exam Limitations: no limitations General appearance: alert, in no apparent distress Head exam: Present: atraumatic, normocephalic, normal inspection ENT exam: Present: normal exam, normal oropharynx, mucous membranes moist Neck exam: Present: normal inspection, full ROM. Absent: tenderness, meningismus, lymphadenopathy Respiratory exam: Present: normal lung sounds bilaterally. Absent: respiratory distress, wheezes, rales, rhonchi, stridor Cardiovascular Exam: Present: regular rate, normal rhythm, normal heart sounds. Absent: systolic murmur, diastolic murmur, rubs, gallop, clicks GI/Abdominal exam: Present: soft, tenderness (Diffuse [id number]), normal bowel sounds. Absent: distended, guarding, rebound, rigid Back exam: Absent: CVA tenderness (R), CVA tenderness (L) Neurological exam: Present: alert Skin exam: Present: warm, dry, intact, normal color. Absent: rash <Dedoe,Alan M - Last Filed: 01/21/19 15:42> Course Vital Signs 01/21/19 01/21/19 12:35 16:37 Temperature 97.7 F 97.2 F L Pulse Rate 64 58 L Respiratory 18 18 Rate Blood Pressure 148/82 138/70 O2 Sat by Pulse 99 96 Oximetry Medical Decision Making - Lab Data Result diagrams: 01/21/19 13:30 01/21/19 13:30 <Alan Nava - Last Filed: 01/21/19 15:42> - Lab Data Result diagrams: 01/21/19 13:30 01/21/19 13:30 <Bette Harrison - Last Filed: 01/26/19 12:27> - Medical Decision Making 68-year-old female presented for abdominal discomfort. Patient CT shows possible obstruction. Patient's case discussed with Dr. Yancey patient will be admitted to Dr. Menendez service with consult. (Alan Nava) I was available for consultation in the emergency department. The history and physical exam were done by the midlevel provider. I was consulted for this patients care. I reviewed the case with the midlevel provider and based on their presentation of the patient, I agree with the assessment, medical decision making and plan of care as documented. I evaluated the patient myself. I called and discussed the case with both Dr. Menendez and Dr. Yancey. Chart was dictated using [employer] dictation software. Attempts were made to correct any dictation errors however some typographical errors may persist. (Bette Harrison) - Lab Data Lab Results 01/21/19 01/21/19 01/21/19 Range/Units 13:30 13:30 13:30 WBC 6.3 (3.8-10.6) k/uL RBC 5.34 (3.80-5.40) m/uL Hgb 11.1 L (11.4-16.0) gm/dL Hct 37.3 (34.0-46.0) % MCV 69.9 L (80.0-100.0) fL MCH 20.9 L (25.0-35.0) pg MCHC 29.8 L (31.0-37.0) g/dL RDW 16.6 H (11.5-15.5) % Plt Count 384 (150-450) k/uL Neutrophils % 62 % Lymphocytes % 27 % Monocytes % 5 % Eosinophils % 3 % Basophils % 1 % Neutrophils # 3.9 (1.3-7.7) k/uL Lymphocytes # 1.7 (1.0-4.8) k/uL Monocytes # 0.3 (0-1.0) k/uL Eosinophils # 0.2 (0-0.7) k/uL Basophils # 0.0 (0-0.2) k/uL Hypochromasia Marked Anisocytosis Slight Microcytosis Marked Sodium 141 (137-145) mmol/L Potassium 4.0 (3.5-5.1) mmol/L Chloride 106 (98-107) mmol/L Carbon Dioxide 26 (22-30) mmol/L Anion Gap 9 mmol/L BUN 10 (7-17) mg/dL Creatinine 0.83 (0.52-1.04) mg/dL Est GFR (CKD-EPI)AfAm 84 (>60 ml/min/1.73 sqM) Est GFR (CKD-EPI)NonAf 73 (>60 ml/min/1.73 sqM) Glucose 91 (74-99) mg/dL Plasma Lactic Acid Jamil 1.0 (0.7-2.0) mmol/L Calcium 9.4 (8.4-10.2) mg/dL Total Bilirubin 0.7 (0.2-1.3) mg/dL AST 21 (14-36) U/L ALT 17 (9-52) U/L Alkaline Phosphatase 135 H (38-126) U/L Total Protein 7.5 (6.3-8.2) g/dL Albumin 4.4 (3.5-5.0) g/dL Amylase 56 (30-110) U/L Lipase 60 (23-300) U/L Urine Color Urine Appearance (Clear) Urine pH (5.0-8.0) Ur Specific [place] (1.001-1.035) Urine Protein (Negative) Urine Glucose (UA) (Negative) Urine Ketones (Negative) Urine Blood (Negative) Urine Nitrite (Negative) Urine Bilirubin (Negative) Urine Urobilinogen (<2.0) mg/dL Ur Leukocyte Esterase (Negative) 01/21/19 Range/Units 13:46 WBC (3.8-10.6) k/uL RBC (3.80-5.40) m/uL Hgb (11.4-16.0) gm/dL Hct (34.0-46.0) % MCV (80.0-100.0) fL MCH (25.0-35.0) pg MCHC (31.0-37.0) g/dL RDW (11.5-15.5) % Plt Count (150-450) k/uL Neutrophils % % Lymphocytes % % Monocytes % % Eosinophils % % Basophils % % Neutrophils # (1.3-7.7) k/uL Lymphocytes # (1.0-4.8) k/uL Monocytes # (0-1.0) k/uL Eosinophils # (0-0.7) k/uL Basophils # (0-0.2) k/uL Hypochromasia Anisocytosis Microcytosis Sodium (137-145) mmol/L Potassium (3.5-5.1) mmol/L Chloride (98-107) mmol/L Carbon Dioxide (22-30) mmol/L Anion Gap mmol/L BUN (7-17) mg/dL Creatinine (0.52-1.04) mg/dL Est GFR (CKD-EPI)AfAm (>60 ml/min/1.73 sqM) Est GFR (CKD-EPI)NonAf (>60 ml/min/1.73 sqM) Glucose (74-99) mg/dL Plasma Lactic Acid Jamil (0.7-2.0) mmol/L Calcium (8.4-10.2) mg/dL Total Bilirubin (0.2-1.3) mg/dL AST (14-36) U/L ALT (9-52) U/L Alkaline Phosphatase (38-126) U/L Total Protein (6.3-8.2) g/dL Albumin (3.5-5.0) g/dL Amylase (30-110) U/L Lipase (23-300) U/L Urine Color Yellow Urine Appearance Clear (Clear) Urine pH 6.5 (5.0-8.0) Ur Specific [place] 1.017 (1.001-1.035) Urine Protein Trace H (Negative) Urine Glucose (UA) Negative (Negative) Urine Ketones 1+ H (Negative) Urine Blood Negative (Negative) Urine Nitrite Negative (Negative) Urine Bilirubin Negative (Negative) Urine Urobilinogen <2.0 (<2.0) mg/dL Ur Leukocyte Esterase Negative (Negative) Disposition <Alan Nava - Last Filed: 01/21/19 15:42> <Bette Harrison - Last Filed: 01/26/19 12:27> Clinical Impression: Bowel obstruction, Abdominal pain Disposition: ADMITTED IP TO THIS HOSP Condition: Fair
[2019-01-21 13:51] LABS: Anisocytosis Slight; Basophils % (A) 1 %; Eosinophils # (A) 0.2 k/uL (0-0.7); Eosinophils % (A) 3 %; HCT 37.3 % (34.0-46.0); HGB 11.1 gm/dL (11.4-16.0); Hypochromasia Marked; Lymphocytes # (A) 1.7 k/uL (1.0-4.8); Lymphocytes % (A) 27 %; MCH 20.9 pg (25.0-35.0); MCHC 29.8 g/dL (31.0-37.0); MCV 69.9 fL (80.0-100.0); Mean Platelet Volume 5.6; Microcytosis Marked; Monocytes # (A) 0.3 k/uL (0-1.0); Monocytes % (A) 5 %; Neutrophils # (A) 3.9 k/uL (1.3-7.7); Neutrophils % (A) 62 %; Platelet Count 384 k/uL (150-450); RBC 5.34 m/uL (3.80-5.40); RDW 16.6 % (11.5-15.5); WBC 6.3 k/uL (3.8-10.6)
[2019-01-21 13:56] LABS: Appearance,Urine Clear (Clear); Bilirubin,Urine Negative (Negative); Blood,Urine Negative (Negative); Color,Urine Yellow; Glucose,Urine (UA) Negative (Negative); Ketones,Urine 1+ (Negative); Leukocyte Esterase,Urine Negative (Negative); Nitrite,Urine Negative (Negative); PH, Urine 6.5 (5.0-8.0); Protein,Urine Trace (Negative); Specific Gravity,Urine 1.017 (1.001-1.035); Urobilinogen,Urine <2.0 mg/dL (<2.0)
[2019-01-21 13:59] LABS: Albumin 4.4 g/dL (3.5-5.0); Calcium 9.4 mg/dL (8.4-10.2); Total Bilirubin 0.7 mg/dL (0.2-1.3); Total Protein 7.5 g/dL (6.3-8.2)
--- NOTE | 2019-01-21 14:57 | CT ---
EXAMINATION TYPE: CT abdomen pelvis w con DATE OF EXAM: 01/21/2019 COMPARISON: NONE HISTORY: 68-year-old female with abdominal pain TECHNIQUE: Contiguous axial scanning of the abdomen and pelvis following administration of 100 ml Iso rajesh 300 IV contrast. Delayed images through the kidneys and coronal/sagittal reconstructions perform ed. CT DLP: 1062.8 mGycm Automated exposure control for dose reduction was used. FINDINGS: Heart normal size without pericardial effusion. Pacer lead is demonstrated. Lung bases clear without pleural effusion. There is a small hiatal hernia with postsurgical changes likely reflecting sleeve gastrectomy. No focal liver lesion or biliary ductal dilatation. Portal venous system is patent. Gallbladder surgically absent. Adrenal glands, kidneys, spleen, and pancreas appear within normal limits. Staple line along the rectosigmoid junction from prior resection and reanastomosis. Mild diverticular change along the right side of the colon. Patient is status post partial left hemicolectomy The colon loops up superiorly to the epigastric region heading towards the right before heading back inferiorly. There is some caliber change at the mid abdomen level probably normal collapsed segment, refer to axial image 34. No mesenteric or retroperitoneal lymphadenopathy. Normal appendix. No pericolonic inflammatory change. Bladder underdistended. The uterus is retroflexed. Left ovary is visualized with a 1.1 cm cyst. No ab normal fluid collection in the pelvis or pelvic lymphadenopathy. Bones: Mild degenerative changes at the hips. Facet arthropathy mid to lower lumbar spine. IMPRESSION: 1. Partial left hemicolectomy with distal rectosigmoid anastomosis. The colon loops up superiorly to the epigastrium and heads towards the right before descending along the midline. There is a relative caliber change at the level of the mid abdominal distention probably just transient and incidental. A mild relative obstruction difficult to entirely exclude. 2. Small hiatal hernia status post sleeve gastrectomy. 3. Right-sided colonic diverticulosis without evidence for acute diverticulitis.
[2019-01-21] MEDS ORDERED: ONDANSETRON 4 MG/2 ML VIAL IVP PRN (15:45)
[2019-01-21] MEDS ORDERED: NALOXONE 0.4 MG/ML 1 ML VIAL IV PRN (15:45)
[2019-01-21] MEDS: KETOROLAC 30 MG/ML 1 ML VIAL IVP PRN (19:51)
[2019-01-21] MEDS: SODIUM CHLORIDE 0.9% 1,000 ML IV SCH (19:51)
[2019-01-22] MEDS: SODIUM CHLORIDE 0.9% 1,000 ML IV SCH ×2 (06:50→20:11)
[2019-01-22] MEDS ORDERED: ALBUTEROL NEBULIZED 2.5 MG/3 ML INHALATION PRN (07:42)
[2019-01-22] MEDS ORDERED: hydrOXYzine HCL 25 MG TAB PO PRN (07:42)
[2019-01-22] MEDS ORDERED: MECLIZINE 25 MG TAB PO PRN (07:42)
--- NOTE | 2019-01-22 08:40 | P.GSCN ---
History of Present Illness Consult date: 01/22/19 Reason for Consult: Abdominal pain History of present illness: This is a 68-year-old female well-known to myself. Patient states she had cramp y abdominal pain yesterday. She underwent CAT scan in the emergency room which showed some possible dilated loops of small bowel. The patient states that her pain is improved. She currently is hungry. Past Medical History Past Medical History: GERD/Reflux, GI Bleed, Hyperlipidemia, Hypertension, Osteoarthritis (OA), Seizure Disorder, Thyroid Disorder Additional Past Medical History / Comment(s): history of depression History of Any Multi-Drug Resistant Organisms: ESBL Year Discovered:: 01/08/18 MDRO Source:: ESBL URINE Past Surgical History: Back Surgery, Cholecystectomy, Heart Catheterization, Hernia Repair, Joint Replacement, Pacemaker, Tonsillectomy Additional Past Surgical History / Comment(s): LAP BAND INSERTED & REMOVED, GASTRIC SLEEVE (2015), GINI TOTAL KNEES, CERVICAL FUSION (2-7), BOWEL RESECTION., INCISIONAL HERNIA'S. STATES SEVERAL HEART CATHS-NO STENTS (DONE AT [facility]) COLECTOMY Past Anesthesia/Blood Transfusion Reactions: No Reported Reaction Additional Past Anesthesia/Blood Transfusion Reaction / Comm: blood transfusion- no reaction Type of Cardiac Device: Permanent Pacemaker Device Placement Date:: 10/12/17 Past Psychological History: Anxiety, Depression Additional Psychological History / Comment(s): lives with sister, uses walker when up. Smoking Status: Never smoker Past Alcohol Use History: None Reported Past Drug Use History: None Reported - Past Family History Mother Family Medical History: Pulmonary Embolus Additional Family Medical History / Comment(s): Multiple TIA's. Father Family Medical History: Cancer Additional Family Medical History / Comment(s): Lung Sister(s) Family Medical History: Cancer Additional Family Medical History / Comment(s): OVARIAN CANCER Medications and Allergies Home Medications Medication Instructions Recorded Confirmed Type Atorvastatin [Lipitor] 10 mg PO HS 09/21/13 01/21/19 History Fycompa 4 Mg 4 mg PO HS 09/25/17 01/21/19 History Carvedilol [Coreg] 3.125 mg PO BID 11/11/17 01/21/19 History Levothyroxine Sodium [Synthroid] 50 mcg PO DAILY 11/11/17 01/21/19 History Meclizine [Antivert] 25 mg PO TID PRN 11/11/17 01/21/19 History Omeprazole 20 mg PO BID 11/11/17 01/21/19 History Potassium Chloride ER [K-Dur 20] 20 meq PO BID 11/11/17 01/21/19 History buPROPion XL [Wellbutrin Xl] 150 mg PO HS 11/11/17 01/21/19 History levETIRAcetam [Keppra] 1,000 mg PO BID 12/11/17 01/21/19 History amLODIPine [Norvasc] 5 mg PO DAILY 01/08/18 01/21/19 History Citalopram Hydrobromide [CeleXA] 40 mg PO DAILY 06/23/18 01/21/19 History hydrOXYzine HCL 25 mg PO TID PRN 06/23/18 01/21/19 History Ibuprofen 600 mg PO TID #20 tablet 10/15/18 01/21/19 Rx LORazepam [Ativan] 0.5 mg PO HS 11/07/18 01/21/19 History Zolpidem [Ambien] 10 mg PO HS 11/07/18 01/21/19 History Albuterol Inhaler [Ventolin Hfa 2 puff INHALATION RT-Q6H PRN 01/21/19 01/21/19 History Inhaler] Allergies Allergy/AdvReac Type Severity Reaction Status Date / Time ciprofloxacin [From Cipro] Allergy Unknown Verified 01/21/19 16:14 ciprofloxacin HCl Allergy Unknown Verified 01/21/19 16:14 [From Cipro] codeine Allergy Rash/Hives Verified 01/21/19 16:14 hydrocodone bitartrate Allergy Rash/Hives Verified 01/21/19 16:14 [From Lortab] hydromorphone [From Dilaudid] Allergy Rash/Hives Verified 01/21/19 16:14 meperidine HCl [From Demerol] Allergy Rash/Hives Verified 01/21/19 16:14 morphine Allergy Rash/Hives Verified 01/21/19 16:14 propoxyphene napsylate Allergy Rash/Hives Verified 01/21/19 16:14 [From Darvocet-N 100] soy Allergy Anaphylaxis Verified 01/21/19 16:14 Sulfa (Sulfonamide Allergy Rash/Hives Verified 01/21/19 16:14 Antibiotics) tetracycline [Tetracycline] Allergy Rash/Hives Verified 01/21/19 16:14 tioconazole [From Monistat 1] Allergy Rash/Hives Verified 01/21/19 16:14 Surgical - Exam Vital Signs Temp Pulse Resp BP Pulse Ox 97.7 F 64 18 148/82 99 01/21/19 12:35 01/21/19 12:35 01/21/19 12:35 01/21/19 12:35 01/21/19 12:35 - General well developed, well nourished - Eyes PERRL - ENT normal pinna - Neck no masses - Respiratory normal expansion - Cardiovascular Rhythm: regular - Abdomen Abdomen: soft, non tender Results - Labs 01/21/19 13:30 01/21/19 13:30 Abnormal Lab Results - Last 24 Hours (Table) 01/21/19 01/21/19 01/21/19 Range/Units 13:30 13:30 13:46 Hgb 11.1 L (11.4-16.0) gm/dL MCV 69.9 L (80.0-100.0) fL MCH 20.9 L (25.0-35.0) pg MCHC 29.8 L (31.0-37.0) g/dL RDW 16.6 H (11.5-15.5) % Alkaline Phosphatase 135 H (38-126) U/L Urine Protein Trace H (Negative) Urine Ketones 1+ H (Negative) Diabetes panel 01/21/19 Range/Units 13:30 Sodium 141 (137-145) mmol/L Potassium 4.0 (3.5-5.1) mmol/L Chloride 106 (98-107) mmol/L Carbon Dioxide 26 (22-30) mmol/L BUN 10 (7-17) mg/dL Creatinine 0.83 (0.52-1.04) mg/dL Glucose 91 (74-99) mg/dL Calcium 9.4 (8.4-10.2) mg/dL AST 21 (14-36) U/L ALT 17 (9-52) U/L Alkaline Phosphatase 135 H (38-126) U/L Total Protein 7.5 (6.3-8.2) g/dL Albumin 4.4 (3.5-5.0) g/dL Calcium panel 01/21/19 Range/Units 13:30 Calcium 9.4 (8.4-10.2) mg/dL Albumin 4.4 (3.5-5.0) g/dL Pituitary panel 01/21/19 Range/Units 13:30 Sodium 141 (137-145) mmol/L Potassium 4.0 (3.5-5.1) mmol/L Chloride 106 (98-107) mmol/L Carbon Dioxide 26 (22-30) mmol/L BUN 10 (7-17) mg/dL Creatinine 0.83 (0.52-1.04) mg/dL Glucose 91 (74-99) mg/dL Calcium 9.4 (8.4-10.2) mg/dL Adrenal panel 01/21/19 Range/Units 13:30 Sodium 141 (137-145) mmol/L Potassium 4.0 (3.5-5.1) mmol/L Chloride 106 (98-107) mmol/L Carbon Dioxide 26 (22-30) mmol/L BUN 10 (7-17) mg/dL Creatinine 0.83 (0.52-1.04) mg/dL Glucose 91 (74-99) mg/dL Calcium 9.4 (8.4-10.2) mg/dL Total Bilirubin 0.7 (0.2-1.3) mg/dL AST 21 (14-36) U/L ALT 17 (9-52) U/L Alkaline Phosphatase 135 H (38-126) U/L Total Protein 7.5 (6.3-8.2) g/dL Albumin 4.4 (3.5-5.0) g/dL Assessment and Plan Assessment: Computed tomography scan was reviewed. The patient will be observed. She probably has a resolving ileus. We'll start her on clear liquids.
[2019-01-22] MEDS: CITALOPRAM HYDROBROMIDE 20 MG TAB PO SCH (09:06)
[2019-01-22] MEDS: levETIRAcetam 500 MG TAB PO SCH ×2 (09:06→20:08)
[2019-01-22] MEDS: amLODIPine 5 MG TAB PO SCH (09:06)
[2019-01-22] MEDS: POTASSIUM CHLORIDE ER 20 MEQ TAB.ER PO SCH ×2 (09:06→20:09)
[2019-01-22] MEDS: CARVEDILOL 3.125 MG TAB PO SCH ×2 (09:08→16:53)
[2019-01-22] MEDS: PANTOPRAZOLE 40 MG TABLET PO SCH (09:10)
[2019-01-22] MEDS: LEVOTHYROXINE 50 MCG TAB PO SCH (09:10)
[2019-01-22] MEDS: KETOROLAC 30 MG/ML 1 ML VIAL IVP PRN (10:23)
[2019-01-22] MEDS ORDERED: FYCOMPA PO SCH (21:00)
[2019-01-22] MEDS ORDERED: buPROPion XL 150 MG TAB.ER.24H PO SCH (21:00)
[2019-01-22] MEDS ORDERED: LORazepam 0.5 MG TAB PO SCH (21:00)
[2019-01-22] MEDS ORDERED: ATORVASTATIN 10 MG TAB PO SCH (21:00)
[2019-01-22] MEDS ORDERED: ZOLPIDEM 10 MG TAB PO PRN (21:00)
--- NOTE | 2019-01-22 22:34 | P.HPIM ---
History of Present Illness H&P Date: 01/22/19 68-year-old female presents emergency Department with chief complaint of abdominal pain. Patient states she woke up states that she's had some gradual increasing diffuse abdominal pain. Patient states she's had multiple abdominal surgeries including prior LAP-BAND with removal and gastric sleeve surgery, cholecystectomy and bowel resection due to diverticulitis. Patient states that she currently sees Dr. Yancey. she states that pain is unbearable she does not that she's had diarrhea but this is been ongoing after her gastric sleeve surgery. Patient denies any dysuria, hematuria, melena or hematochezia. Patient denies chest pain, cough, URI symptoms. Patient states that she's had on-and-off fevers. patient is recently mourning the of her sister and has been suffering from mild depression. Review of Systems GENERAL: Patient denies fever. Denies chills. EYES: Denies blurred vision. Denies vision changes. Denies eye pain. EARS, NOSE, MOUTH, & THROAT: Denies headache. Denies sore throat. Denies ear pain. RESPIRATORY: Denies cough. Denies shortness of breath. Denies sputum production. Denies hemoptysis. CARDIOVASCULAR: Denies chest pain or pressure. Denies palpitations. Denies arrhythmias. GASTROINTESTINAL: admits to acute abdominal pain with abdominal distention and decrease gas and constipation Also admits to intermitting diarrhea since g astric sleeve. GENITOURINARY: Denies urinary frequency. Denies burning. Denies dysuria. Denies cloudy urine. Denies blood in the urine. MUSCULOSKELETAL: Denies myalgias. Denies joint swelling. Denies decreased range of motion beyond patients baseline.suffers from degenerative osteoarthritis INTEGUMENTARY: Denies pruitis. Denies rash. PSYCHIATRIC: Denies suicidal or homicial ideations.positive for depression ENDOCRINE: Denies weight change. Denies polydipsia. Denies polyuria. HEMATOLOGIC: Denies bleeding disorders. Past Medical History Past Medical History: GERD/Reflux, GI Bleed, Hyperlipidemia, Hypertension, Osteoarthritis (OA), Seizure Disorder, Thyroid Disorder Additional Past Medical History / Comment(s): history of depression History of Any Multi-Drug Resistant Organisms: ESBL Date of last positivie culture/infection: 01/08/18 MDRO Source:: ESBL URINE Past Surgical History: Back Surgery, Cholecystectomy, Heart Catheterization, Hernia Repair, Joint Replacement, Pacemaker, Tonsillectomy Additional Past Surgical History / Comment(s): LAP BAND INSERTED & REMOVED, GASTRIC SLEEVE (2016), GINI TOTAL KNEES, CERVICAL FUSION (2-7), BOWEL RESECTION., INCISIONAL HERNIA'S. STATES SEVERAL HEART CATHS-NO STENTS (DONE AT [facility]) COLECTOMY Past Anesthesia/Blood Transfusion Reactions: No Reported Reaction Additional Past Anesthesia/Blood Transfusion Reaction / Comment(s): blood transfusion-no reaction Type of Cardiac Device: Permanent Pacemaker Device Placement Date:: 10/12/17 Past Psychological History: Anxiety, Depression Additional Psychological History / Comment(s): lives with sister, uses walker when up. Smoking Status: Never smoker Past Alcohol Use History: None Reported Past Drug Use History: None Reported - Past Family History Mother Family Medical History: Pulmonary Embolus Additional Family Medical History / Comment(s): Multiple TIA's. Father Family Medical History: Cancer Additional Family Medical History / Comment(s): Lung Sister(s) Family Medical History: Cancer Additional Family Medical History / Comment(s): OVARIAN CANCER Medications and Allergies Home Medications Medication Instructions Recorded Confirmed Type Atorvastatin [Lipitor] 10 mg PO HS 09/21/13 01/21/19 History Fycompa 4 Mg 4 mg PO HS 09/25/17 01/21/19 History Carvedilol [Coreg] 3.125 mg PO BID 11/11/17 01/21/19 History Levothyroxine Sodium [Synthroid] 50 mcg PO DAILY 11/11/17 01/21/19 History Meclizine [Antivert] 25 mg PO TID PRN 11/11/17 01/21/19 History Omeprazole 20 mg PO BID 11/11/17 01/21/19 History Potassium Chloride ER [K-Dur 20] 20 meq PO BID 11/11/17 01/21/19 History buPROPion XL [Wellbutrin Xl] 150 mg PO HS 11/11/17 01/21/19 History levETIRAcetam [Keppra] 1,000 mg PO BID 12/11/17 01/21/19 History amLODIPine [Norvasc] 5 mg PO DAILY 01/08/18 01/21/19 History Citalopram Hydrobromide [CeleXA] 40 mg PO DAILY 06/23/18 01/21/19 History hydrOXYzine HCL 25 mg PO TID PRN 06/23/18 01/21/19 History Ibuprofen 600 mg PO TID #20 tablet 10/15/18 01/21/19 Rx LORazepam [Ativan] 0.5 mg PO HS 11/07/18 01/21/19 History Zolpidem [Ambien] 10 mg PO HS 11/07/18 01/21/19 History Albuterol Inhaler [Ventolin Hfa 2 puff INHALATION RT-Q6H PRN 01/21/19 01/21/19 History Inhaler] Allergies Allergy/AdvReac Type Severity Reaction Status Date / Time ciprofloxacin [From Cipro] Allergy Unknown Verified 01/21/19 16:14 ciprofloxacin HCl Allergy Unknown Verified 01/21/19 16:14 [From Cipro] codeine Allergy Rash/Hives Verified 01/21/19 16:14 hydrocodone bitartrate Allergy Rash/Hives Verified 01/21/19 16:14 [From Lortab] hydromorphone [From Dilaudid] Allergy Rash/Hives Verified 01/21/19 16:14 meperidine HCl [From Demerol] Allergy Rash/Hives Verified 01/21/19 16:14 morphine Allergy Rash/Hives Verified 01/21/19 16:14 propoxyphene napsylate Allergy Rash/Hives Verified 01/21/19 16:14 [From Darvocet-N 100] soy Allergy Anaphylaxis Verified 01/21/19 16:14 Sulfa (Sulfonamide Allergy Rash/Hives Verified 01/21/19 16:14 Antibiotics) tetracycline [Tetracycline] Allergy Rash/Hives Verified 01/21/19 16:14 tioconazole [From Monistat 1] Allergy Rash/Hives Verified 01/21/19 16:14 Physical Exam Osteopathic Statement: *. No significant issues noted on an osteopathic s tructural exam other than those noted in the History and Physical/Consult. Vitals: Vital Signs Temp Pulse Pulse Resp BP BP Pulse Ox 01/22/19 05:50 97.8 F 56 L 20 129/73 95 01/21/19 20:50 97.9 F 58 L 20 144/70 92 L 01/21/19 16:37 97.2 F L 58 L 18 138/70 96 Intake and Output 01/21/19 01/22/19 01/22/19 22:59 06:59 14:59 Other: # Voids 1 1 GENERAL: This is a 68-year-old in no apparent distress at the time of examination. Pleasant and cooperative. HEENT: Head is atraumatic, normocephalic. Pupils are equal, round, and reactive to light. Sclerae anicteric. Conjunctivae are clear. Mucus membranes of the mouth are moist. Neck is supple. RESPIRATORY: Clear to auscultation. No wheezes, rales, or rhonchi. No use of accessory muscles. Patient maintaining oxygen saturation greater than 92%. No chest wall tenderness is noted on palpation or with deep breathing. CARDIOVASCULAR: Regular rate and rhythm. S1 and S2 noted. No systolic or diastolic murmur auscultated. No JVD noted GASTROINTESTINAL: distention noted. Abdomen diffuse tenderness. Normal active bowel sounds auscultated x 4 quadrants. INTEGUMENTARY: No cyanosis. No jaundice. No rashes noted. No cellulitis noted. EXTREMITIES: 2+ peripheral pulses. No evidence of peripheral edema. No calf tenderness noted. NEUROLOGIC: Cranial nerves II-XII intact. PSYCHIATRIC: Awake, alert, and oriented X 3. Appropriate affect. Intact judgement and insight. Results CBC & Chem 7: 01/21/19 13:30 01/21/19 13:30 Labs: Abnormal Lab Results - Last 24 Hours (Table) 01/21/19 01/21/19 01/21/19 Range/Units 13:30 13:30 13:46 Hgb 11.1 L (11.4-16.0) gm/dL MCV 69.9 L (80.0-100.0) fL MCH 20.9 L (25.0-35.0) pg MCHC 29.8 L (31.0-37.0) g/dL RDW 16.6 H (11.5-15.5) % Alkaline Phosphatase 135 H (38-126) U/L Urine Protein Trace H (Negative) Urine Ketones 1+ H (Negative) Thrombosis Risk Factor Assmnt - Choose All That Apply Any of the Below Risk Factors Present?: No Other Risk Factors: Yes Each Risk Factor Represents 2 Points: Age 61-74 years Thrombosis Risk Factor Assessment Total Risk Factor Score: 2 Thrombosis Risk Factor Assessment Level: Low Risk Assessment and Plan (1) Abdominal pain Current Visit: Yes Status: Acute Code(s): R10.9 - UNSPECIFIED ABDOMINAL PAIN SNOMED Code(s): 57175857 (2) Bowel obstruction Current Visit: Yes Status: Acute Code(s): K56.609 - UNSP INTESTNL OBST, UNSP TO PARTIAL VERSUS COMPLETE OBST SNOMED Code(s): 91243700 (3) Seizure disorder Current Visit: No Status: Acute Code(s): G40.909 - EPILEPSY, UNSP, NOT IN TRACTABLE, WITHOUT STATUS EPILEPTICUS SNOMED Code(s): 663068737 (4) Hypothyroidism Current Visit: Yes Status: Acute Code(s): E03.9 - HYPOTHYROIDISM, UNSPECIFIED SNOMED Code(s): 71616494 (5) Mild depression Current Visit: Yes Status: Acute Code(s): F32.0 - MAJOR DEPRESSIVE DISORDER, SINGLE EPISODE, MILD SNOMED Code(s): 069258393 (6) Hypertension Current Visit: Yes Status: Acute Code(s): I10 - ESSENTIAL (PRIMARY) HYPERTENSION SNOMED Code(s): 84503101 Plan: patientis currently stable we'll leave him nothing by mouteen and evaluated by surgery. We'll obtain a CAT scan of the abdomen and pelvis. We'll continue to follow patient' erall prognosis
[2019-01-23 00:01] VITALS: RESP 18
[2019-01-23] MEDS: LEVOTHYROXINE 50 MCG TAB PO SCH (05:45)
[2019-01-23 06:19] VITALS: BP 118/66; PULSE 56; TEMP 98.5
[2019-01-23] MEDS: CARVEDILOL 3.125 MG TAB PO SCH (07:46)
[2019-01-23] MEDS: CITALOPRAM HYDROBROMIDE 20 MG TAB PO SCH (07:47)
[2019-01-23] MEDS: POTASSIUM CHLORIDE ER 20 MEQ TAB.ER PO SCH (07:47)
[2019-01-23] MEDS: levETIRAcetam 500 MG TAB PO SCH (07:47)
[2019-01-23] MEDS: SODIUM CHLORIDE 0.9% 1,000 ML IV SCH (07:47)
[2019-01-23] MEDS: amLODIPine 5 MG TAB PO SCH (07:47)
[2019-01-23] MEDS: PANTOPRAZOLE 40 MG TABLET PO SCH (07:47)
--- NOTE | 2019-01-23 09:02 | P.PN ---
Progress Note - Text Progress Note Date: 01/23/19 The patient feels slightly better. Her pain is improved. On exam her vital signs are stable. Her abdomen soft. There is minimal tenderness. There is no rebound or guarding. Resolving abdominal pain. Patient will have her diet advanced to regular diet. We discussed the discharge home tomorrow.
--- NOTE | 2019-01-23 11:11 | P.DS ---
Providers Date of admission: 01/21/19 15:58 Attending physician: Cade Menendez Consults: 01/21/19 15:45 Consult Physician Urgent Consulting Provider: Doroteo Yancey Consult Reason/Comments: established patient, bowel obstruction Do you want consulting provider notified?: Yes Primary care physician: Cade Menendez Hospital Course: Patient was admitted of for partial small bowel obstruction secondary to dizzi ness resolved patient had couple episodes of diarrhea. Patient is able to tolerate diet well. Patient has less than 5 episodes of diarrhea patient will be discharged today. Patient is a good bowel sounds. PHYSICAL EXAMINATION: GENERAL: The patient is alert and oriented x3, not in any acute distress. Well developed, well nourished. HEENT: Pupils are round and equally reacting to light. EOMI. No scleral icterus. No conjunctival pallor. Normocephalic, atraumatic. No pharyngeal erythema. No thyromegaly. CARDIOVASCULAR: S1 and S2 present. No murmurs, rubs, or gallops. PULMONARY: Chest is clear to auscultation, no wheezing or crackles. ABDOMEN: Soft, nontender, nondistended, normoactive bowel sounds. No palpable organomegaly. MUSCULOSKELETAL: No joint swelling or deformity. EXTREMITIES: No cyanosis, clubbing, or pedal edema. NEUROLOGICAL: Gross neurological examination did not reveal any focal deficits. SKIN: No rashes. Please refer to Dr. Menendez dictation for further details of hospitalization course and other medical problems that were addressed. Patient Condition at Discharge: Fair Plan - Discharge Summary Discharge Rx Participant: No New Discharge Prescriptions: Continue Atorvastatin [Lipitor] 10 mg PO HS Fycompa 4 Mg 4 mg PO HS Potassium Chloride ER [K-Dur 20] 20 meq PO BID Omeprazole 20 mg PO BID Meclizine [Antivert] 25 mg PO TID PRN PRN Reason: Vertigo Levothyroxine Sodium [Synthroid] 50 mcg PO DAILY buPROPion XL [Wellbutrin XL] 150 mg PO HS Carvedilol [Coreg] 3.125 mg PO BID levETIRAcetam [Keppra] 1,000 mg PO BID amLODIPine [Norvasc] 5 mg PO DAILY Citalopram Hydrobromide [CeleXA] 40 mg PO DAILY hydrOXYzine HCL 25 mg PO TID PRN PRN Reason: Anxiety Ibuprofen 600 mg PO TID #20 tablet Zolpidem [Ambien] 10 mg PO HS LORazepam [Ativan] 0.5 mg PO HS Albuterol Inhaler [Ventolin Hfa Inhaler] 2 puff INHALATION RT-Q6H PRN PRN Reason: Dyspnea Discharge Medication List Atorvastatin [Lipitor] 10 mg PO HS 09/21/13 [History] Fycompa 4 Mg 4 mg PO HS 09/25/17 [History] Carvedilol [Coreg] 3.125 mg PO BID 11/11/17 [History] Levothyroxine Sodium [Synthroid] 50 mcg PO DAILY 11/11/17 [History] Meclizine [Antivert] 25 mg PO TID PRN 11/11/17 [History] Omeprazole 20 mg PO BID 11/11/17 [History] Potassium Chloride ER [K-Dur 20] 20 meq PO BID 11/11/17 [History] buPROPion XL [Wellbutrin XL] 150 mg PO HS 11/11/17 [History] levETIRAcetam [Keppra] 1,000 mg PO BID 12/11/17 [History] amLODIPine [Norvasc] 5 mg PO DAILY 01/08/18 [History] Citalopram Hydrobromide [CeleXA] 40 mg PO DAILY 06/23/18 [History] hydrOXYzine HCL 25 mg PO TID PRN 06/23/18 [History] Ibuprofen 600 mg PO TID #20 tablet 10/15/18 [Rx] LORazepam [Ativan] 0.5 mg PO HS 11/07/18 [History] Zolpidem [Ambien] 10 mg PO HS 11/07/18 [History] Albuterol Inhaler [Ventolin Hfa Inhaler] 2 puff INHALATION RT-Q6H PRN 01/21/19 [History] Follow up Appointment(s)/Referral(s): Cade Menendez DO [Primary Care Provider] - 3 Days Discharge Disposition: HOME SELF-CARE
--- NOTE | 2019-02-12 17:34 | CDI ---
Outpatient Documentation Clarification Form Date: 02-12-19 CDS/Thread Puller Name: BETHANY DOUGHERTY Phone: If any questions, call Fang Manzo Surgical Scrub Technician at [phone] Patient Name: NICHOLAS SALCEDO Admit Date: 01-21-19 Discharge Date: 01-23-19 ATTENTION: The [facility] Coding Staff appreciate your assistance in clarifying documentation. Please respond to the clarification below the line at the bottom and electronically sign. The [facility] Coding staff will review the response and follow-up if needed. Please note: Queries are made part of the Legal Health Record. If you have any questions, please contact the Surgical Scrub Technician. Dear Dr. Conteh, Due to a Dragon typo potential dictation, please clarify in the Discharge Summary the cause of the small bowel obstruction. Patient admitted with partial Small bowel obstruction secondary to "dizziness". Please clarify cause of small bowel obstruction below the line. Thank you for your kind consideration. Partial small bowel obstruction secondary to constipation MTDD
== END 2019-01-23 13:39 | disposition home or self-care (01) ==
LOC: EC 12:34 → 4MS4W 15:58
PROVIDERS: ADMIT Family Medicine; ATTEND Family Medicine
DX: K59.00 Constipation, unspecified (principal); R19.7 Diarrhea, unspecified; F32.9 Major depressive disorder, single episode, unspecified; R50.9 Fever, unspecified; Z63.4 Disappearance and death of family member; M19.90 Unspecified osteoarthritis, unspecified site; K21.9 Gastro-esophageal reflux disease without esophagitis; E78.5 Hyperlipidemia, unspecified; I10 Essential (primary) hypertension; G40.909 Epilepsy, unspecified, not intractable, without status epilepticus; F41.9 Anxiety disorder, unspecified; E03.9 Hypothyroidism, unspecified; Z90.49 Acquired absence of other specified parts of digestive tract; Z98.84 Bariatric surgery status; Z87.19 Personal history of other diseases of the digestive system; Z16.24 Resistance to multiple antibiotics; Z79.899 Other long term (current) drug therapy; Z79.890 Hormone replacement therapy; Z79.1 Long term (current) use of non-steroidal anti-inflammatories (NSAID); Z88.1 Allergy status to other antibiotic agents; Z88.5 Allergy status to narcotic agent; Z88.2 Allergy status to sulfonamides; Z88.8 Allergy status to other drugs, medicaments and biological substances; Z91.018 Allergy to other foods; Z80.41 Family history of malignant neoplasm of ovary; Z80.1 Family history of malignant neoplasm of trachea, bronchus and lung; Z82.3 Family history of stroke; Z83.6 Family history of other diseases of the respiratory system
CPT/HCPCS: 96376 ×2; 96361 ×3; 96374; 99285; 36415; 80053; 82150; 83605; 83690; 85025; 81003; 74177; G0378 ×3; J1885 ×2; Q9967

== ENCOUNTER 2019-04-16 13:21 | Emergency (ER) | payer MEDICARE ==
[2019-04-16 13:32] VITALS: BP 138/86; PULSE 71; RESP 20; TEMP 97.7
--- NOTE | 2019-04-16 14:13 | ED ---
Head Injury HPI - General Chief complaint: Head Injury Stated complaint: Fall-Head Injury, LOC Time Seen by Provider: 04/16/19 14:01 Source: patient, RN notes reviewed, old records reviewed Mode of arrival: ambulatory Limitations: no limitations - History of Present Illness Initial comments: Patient is a 69-year-old female presents emergency department today with a right-sided headache injury. Patient reports that she tripped over her dog falling forward onto cement. Patient reports she has contusion over the right parietal area. She did have positive loss of consciousness. She is not on blood thinners. Patient reports that this happened approximately 30 minutes prior to arrival. Patient has had no vomiting or nausea. Patient states that s he has been out of consciousness since that time. At this time Patient states he said multiple concussions in the past. Patient denies any fevers or chills chest pain shortness breath. She also reports that she has some left pain hip pain from the injury. She was able ambulate after the accident. - Related Data Home Medications Medication Instructions Recorded Confirmed Atorvastatin [Lipitor] 10 mg PO HS 09/21/13 01/21/19 Fycompa 4 Mg 4 mg PO HS 09/25/17 01/21/19 Carvedilol [Coreg] 3.125 mg PO BID 11/11/17 01/21/19 Levothyroxine Sodium [Synthroid] 50 mcg PO DAILY 11/11/17 01/21/19 Meclizine [Antivert] 25 mg PO TID PRN 11/11/17 01/21/19 Omeprazole 20 mg PO BID 11/11/17 01/21/19 Potassium Chloride ER [K-Dur 20] 20 meq PO BID 11/11/17 01/21/19 buPROPion XL [Wellbutrin XL] 150 mg PO HS 11/11/17 01/21/19 levETIRAcetam [Keppra] 1,000 mg PO BID 12/11/17 01/21/19 amLODIPine [Norvasc] 5 mg PO DAILY 01/08/18 01/21/19 Citalopram Hydrobromide [CeleXA] 40 mg PO DAILY 06/23/18 01/21/19 hydrOXYzine HCL 25 mg PO TID PRN 06/23/18 01/21/19 LORazepam [Ativan] 0.5 mg PO HS 11/07/18 01/21/19 Zolpidem [Ambien] 10 mg PO HS 11/07/18 01/21/19 Albuterol Inhaler [Ventolin Hfa 2 puff INHALATION RT-Q6H PRN 01/21/19 01/21/19 Inhaler] Previous Rx's Medication Instructions Recorded Ibuprofen 600 mg PO TID #20 tablet 10/15/18 Allergies/Adverse reactions: Allergies Allergy/AdvReac Type Severity Reaction Status Date / Time ciprofloxacin [From Cipro] Allergy Unknown Verified 04/16/19 13:32 ciprofloxacin HCl Allergy Unknown Verified 04/16/19 13:32 [From Cipro] codeine Allergy Rash/Hives Verified 04/16/19 13:32 hydrocodone bitartrate Allergy Rash/Hives Verified 04/16/19 13:32 [From Lortab] hydromorphone [From Dilaudid] Allergy Rash/Hives Verified 04/16/19 13:32 meperidine HCl [From Demerol] Allergy Rash/Hives Verified 04/16/19 13:32 morphine Allergy Rash/Hives Verified 04/16/19 13:32 propoxyphene napsylate Allergy Rash/Hives Verified 04/16/19 13:32 [From Darvocet-N 100] soy Allergy Anaphylaxis Verified 04/16/19 13:32 Sulfa (Sulfonamide Allergy Rash/Hives Verified 04/16/19 13:32 Antibiotics) tetracycline [Tetracycline] Allergy Rash/Hives Verified 04/16/19 13:32 tioconazole [From Monistat 1] Allergy Rash/Hives Verified 04/16/19 13:32 Review of Systems ROS Statement: Those systems with pertinent positive or pertinent negative responses have been documented in the HPI. ROS Other: All systems not noted in ROS Statement are negative. Past Medical History Past Medical History: GERD/Reflux, GI Bleed, Hypertension, Osteoarthritis (OA), Seizure Disorder, Thyroid Disorder Additional Past Medical History / Comment(s): history of depression History of Any Multi-Drug Resistant Organisms: ESBL Date of last positivie culture/infection: 01/08/18 MDRO Source:: ESBL URINE Past Surgical History: Back Surgery, Cholecystectomy, Heart Catheterization, Hernia Repair, Joint Replacement, Pacemaker, Tonsillectomy Additional Past Surgical History / Comment(s): LAP BAND INSERTED & REMOVED, GASTRIC SLEEVE (2016), GINI TOTAL KNEES, CERVICAL FUSION (2-7), BOWEL RESECTION., INCISIONAL HERNIA'S. STATES SEVERAL HEART CATHS-NO STENTS (DONE AT [facility] & [facility]) COLECTOMY Past Anesthesia/Blood Transfusion Reactions: No Reported Reaction Additional Past Anesthesia/Blood Transfusion Reaction / Comment(s): blood transfusion-no reaction Type of Cardiac Device: Permanent Pacemaker Device Placement Date:: 10/12/17 Past Psychological History: Anxiety, Depression Smoking Status: Never smoker Past Alcohol Use History: None Reported Past Drug Use History: None Reported - Past Family History Mother Family Medical History: Pulmonary Embolus Additional Family Medical History / Comment(s): Multiple TIA's. Father Family Medical History: Cancer Additional Family Medical History / Comment(s): Lung Sister(s) Family Medical History: Cancer Additional Family Medical History / Comment(s): OVARIAN CANCER General Exam - General Exam Comments Initial Comments: 6-year-old female. Alert and oriented 3. No distress. Limitations: no limitations General appearance: alert, in no apparent distress Head exam: Present: atraumatic, normocephalic, normal inspection, other (Patient is a 2-3 cm hematoma over the right parietal scalp.) Eye exam: Present: normal appearance, PERRL, EOMI. Absent: scleral icterus, conjunctival injection, periorbital swelling ENT exam: Present: normal exam, mucous membranes moist Neck exam: Present: normal inspection. Absent: tenderness, meningismus, lymphadenopathy Respiratory exam: Present: normal lung sounds bilaterally. Absent: respiratory distress, wheezes, rales, rhonchi, stridor Cardiovascular Exam: Present: regular rate, normal rhythm, normal heart sounds. Absent: systolic murmur, diastolic murmur, rubs, gallop, clicks GI/Abdominal exam: Present: soft, normal bowel sounds. Absent: distended, tenderness, guarding, rebound, rigid Extremities exam: Present: normal inspection, full ROM, normal capillary refill. Absent: tenderness, pedal edema, joint swelling, calf tenderness Back exam: Present: normal inspection Neurological exam: Present: alert, oriented X3, CN II-XII intact Psychiatric exam: Present: normal affect, normal mood Skin exam: Present: warm, dry, intact, normal color. Absent: rash Course Vital Signs 04/16/19 13:25 Temperature 97.7 F Pulse Rate 71 Respiratory 20 Rate Blood Pressure 138/86 O2 Sat by Pulse 94 L Oximetry Medical Decision Making - Medical Decision Making Patient is a 6-year-old female with minor head injury from falling hitting her abdomen, she did positive loss of consciousness. She is a 2-3 similar contusion over) scalp. This time she has no neurological deficits. Patient is alert and oriented 3. Patient is on a blood thinners. CT of brain and C-spine are completely negative for any acute process. No bleeds. Patient also complains of some left hip pain. X-ray shows no fracture. She is able ambulate without difficulty. Patient discussed treatment for a concussion injury and Motrin or Tylenol for pain. All questions were answered. - Radiology Data Radiology results: report reviewed Left hip and pelvis x-rays negative for any acute fracture.CT of the brain shows age-related atrophy and chronic small vessel ischemic change without any acute injury cranial process seen. No evidence of fractures of the position of cervical spine. Disposition Clinical Impression: Concussion, Hip sprain Disposition: HOME SELF-CARE Condition: Good Instructions (If sedation given, give patient instructions): Concussion (ED) Additional Instructions: Patient should have Motrin Tylenol for further headaches or pain. Patient can rest, remain hydrated. Follow-up with your primary care doctor. Is patient prescribed a controlled substance at d/c from ED?: No Referrals: Cade Menendez DO [Primary Care Provider] - 1-2 days Time of Disposition: 15:11
--- NOTE | 2019-04-16 14:44 | CT ---
EXAMINATION TYPE: CT brain april holley DATE OF EXAM: 04/16/2019 COMPARISON: 05/21/2018 HISTORY: Pt fall w/LOC. Head injury. CT DLP: 1334.[address] of the brain was performed. The ventricles, basal cisterns and sulci overlying the cerebral convexities demonstrate mild enlargem ent. There is no evidence for intracranial hemorrhage or sulcal effacement. There is decreased attenuatio n about the periventricular white matter and deep white matter of both cerebral hemispheres, compatib le with chronic small vessel ischemia. No mass effects are seen. If symptoms persist consider MRI. Osseous calvarium is intact. Small Right temporal scalp hematoma. IMPRESSION: 1. Age related atrophic and chronic small vessel ischemic change without acute intracranial process seen at this time. CT Cervical Spine: Unenhanced CT of the cervical spine was performed with bone and soft tissue window settings submitted . Coronal and sagittal reconstruction is obtained. There is normal alignment and prevertebral soft tissues. No evidence for acute cervical fracture . P ostoperative changes of ACDF extending from C4 through C7. Alignment is anatomic. Scattered degenerat kasie disc disease and spondylosis. Biapical scarring. IMPRESSION: 1. No evidence for acute fracture or subluxation of the cervical spine.
--- NOTE | 2019-04-16 14:48 | XR ---
EXAMINATION TYPE: XR Hip LT and AP Pelvis DATE OF EXAM: 04/16/2019 COMPARISON: CT abdomen and pelvis January 21, 2019. HISTORY: Pelvic and left hip pain after fall injury. TECHNIQUE: A single AP view of the pelvis is obtained. Two views of the left hip are obtained. FINDINGS: There is no acute fracture/dislocation evident in the pelvis. The sacroiliac joints appea r symmetric and unremarkable. Ajev-eu-itzbyyii axial joint space loss both hips is redemonstrated. Pu bic symphysis is intact. The overlying soft tissue appears unremarkable. Two views of left hip show no acute fracture or dislocation. No focal lytic or sclerotic lesion seen in the proximal left femur. The overlying soft tissue is unremarkable. IMPRESSION: There is no acute fracture or dislocation in the pelvis or left hip.
== END 2019-04-16 15:50 | disposition home or self-care (01) ==
LOC: EC 13:21
DX: S73.102A Unspecified sprain of left hip, initial encounter (principal); S06.0X1A Concussion with loss of consciousness of 30 minutes or less, initial encounter; S00.03XA Contusion of scalp, initial encounter; K21.9 Gastro-esophageal reflux disease without esophagitis; I10 Essential (primary) hypertension; M19.90 Unspecified osteoarthritis, unspecified site; G40.909 Epilepsy, unspecified, not intractable, without status epilepticus; E07.9 Disorder of thyroid, unspecified; F32.9 Major depressive disorder, single episode, unspecified; F41.9 Anxiety disorder, unspecified; Z88.1 Allergy status to other antibiotic agents; Z88.2 Allergy status to sulfonamides; Z88.5 Allergy status to narcotic agent; Z88.8 Allergy status to other drugs, medicaments and biological substances; Z91.018 Allergy to other foods; Z79.01 Long term (current) use of anticoagulants; Z79.890 Hormone replacement therapy; Z79.899 Other long term (current) drug therapy; Z95.0 Presence of cardiac pacemaker; Z96.653 Presence of artificial knee joint, bilateral; Z98.1 Arthrodesis status; W01.0XXA Fall on same level from slipping, tripping and stumbling without subsequent striking against object, initial encounter; Y92.009 Unspecified place in unspecified non-institutional (private) residence as the place of occurrence of the external cause
CPT/HCPCS: 70450; 72125; 73502; 99284

== ENCOUNTER 2019-04-19 11:39 | Emergency (ER) | payer MEDICARE ==
[2019-04-19 13:01] VITALS: TEMP 97.8
[2019-04-19] MEDS ORDERED: SODIUM CHLORIDE 0.9% 1,000 ML IV STA (13:43)
[2019-04-19] MEDS ORDERED: ONDANSETRON 4 MG/2 ML VIAL IVP STA (13:43)
[2019-04-19] MEDS ORDERED: ACETAMINOPHEN TAB 500 MG TAB PO STA (13:43)
[2019-04-19] MEDS ORDERED: diphenhydrAMINE 50 MG/ML 1 ML VIAL IVP STA (13:43)
[2019-04-19] MEDS ORDERED: KETOROLAC 30 MG/ML 1 ML VIAL IVP STA (13:48)
--- NOTE | 2019-04-19 13:49 | ED ---
General Adult HPI - General Chief complaint: Headache Stated complaint: dizzy/prior head injury-revisit Time Seen by Provider: 04/19/19 13:37 Source: patient Mode of arrival: ambulatory - History of Present Illness Initial comments: Dictation was produced using [employer] dictation software. please excuse any grammatical, word or spelling errors. Chief Complaint: 69-year-old female with past medical history of GERD, hypertension, also arthritis thyroid disease presents with headache. History of Present Illness: Patient is a 69-year-old female she presents today with headache. Patient was seen here 3 days ago. She states that she was walking her dog when her dog pulled really hard causing her to lose her balance and struck her head on the car door. She came to the emergency Department immediately. She did have imaging studies performed To Be Unremarkable. Patient Was Then Discharged. Patient Reports That since the Initial Incident She's Been Having a Persistent Headache. Family Member at Bedside Also Reports the Patient Appears to Be More Lethargic Than Usual. She's Been Sleepy. Patient denies any focal neurologic deficits. The ROS documented in this emergency department record has been reviewed and confirmed by me. Those systems with pertinent positive or negative responses have been documented in the HPI. All other systems are other negative and/or noncontributory. PHYSICAL EXAM: General Impression: Alert and oriented x3, not in acute distress HEENT: Normocephalic atraumatic, extra-ocular movements intact, pupils equal and reactive to light bilaterally, mucous membranes moist. Cardiovascular: Heart regular rate and rhythm, S1&S2 audible, no murmurs, rubs or gallops Chest: Lungs clear to auscultation bilaterally, no rhonchi, no wheeze, no rales Abdomen: Bowel sounds present, abdomen soft, non-tender, non-distended, no or ganomegaly Musculoskeletal: Pulses present and equal in all extremities, no peripheral edema Motor: no focal deficits noted Neurological: CN II-XII grossly intact, no focal motor or sensory deficits noted Skin: Intact with no visualized rashes Psych: Normal affect and mood ED course: 69-year-old female presents with persistent headaches since head injury 3 days ago. As upon arrival are within acceptable limits. Physical examination is grossly benign. Patient given headache cocktail. Computed tomography scan will be performed for possible delayed intracranial injury that may be identifiable radiographically today. Otherwise patient's clinical presentation likely secondary to concussion. To evaluation obtained. CBC, coag panel, metabolic panel is unremarkable. Urinalysis shows 1+ ketones. Patient given headache cocktail. Computed tomography scan of the brain shows no acute processes however there is findings of sphenoidal sinusitis. Chest x-ray is unremarkable. Patient reevaluated after headache cocktail with improved symptoms. Patient agreeable for discharge. She is advised follow-up with primary care physician. Patient given antibiotics for treatment of sinusitis. Return parameters discussed. Patient will be discharged. - Related Data Home Medications Medication Instructions Recorded Confirmed Atorvastatin [Lipitor] 10 mg PO HS 09/21/13 01/21/19 Fycompa 4 Mg 4 mg PO HS 09/25/17 01/21/19 Carvedilol [Coreg] 3.125 mg PO BID 11/11/17 01/21/19 Levothyroxine Sodium [Synthroid] 50 mcg PO DAILY 11/11/17 01/21/19 Meclizine [Antivert] 25 mg PO TID PRN 11/11/17 01/21/19 Omeprazole 20 mg PO BID 11/11/17 01/21/19 Potassium Chloride ER [K-Dur 20] 20 meq PO BID 11/11/17 01/21/19 buPROPion XL [Wellbutrin XL] 150 mg PO HS 11/11/17 01/21/19 levETIRAcetam [Keppra] 1,000 mg PO BID 12/11/17 01/21/19 amLODIPine [Norvasc] 5 mg PO DAILY 01/08/18 01/21/19 Citalopram Hydrobromide [CeleXA] 40 mg PO DAILY 06/23/18 01/21/19 hydrOXYzine HCL 25 mg PO TID PRN 06/23/18 01/21/19 LORazepam [Ativan] 0.5 mg PO HS 11/07/18 01/21/19 Zolpidem [Ambien] 10 mg PO HS 11/07/18 01/21/19 Albuterol Inhaler [Ventolin Hfa 2 puff INHALATION RT-Q6H PRN 01/21/19 01/21/19 Inhaler] Previous Rx's Medication Instructions Recorded Ibuprofen 600 mg PO TID #20 tablet 10/15/18 Amoxic-Pot Clav 875-125Mg 1 tab PO BID 10 Days #20 tab 04/19/19 [Augmentin 875-125] Allergies Allergy/AdvReac Type Severity Reaction Status Date / Time ciprofloxacin [From Cipro] Allergy Unknown Verified 04/16/19 13:32 ciprofloxacin HCl Allergy Unknown Verified 04/16/19 13:32 [From Cipro] codeine Allergy Rash/Hives Verified 04/16/19 13:32 hydrocodone bitartrate Allergy Rash/Hives Verified 04/16/19 13:32 [From Lortab] hydromorphone [From Dilaudid] Allergy Rash/Hives Verified 04/16/19 13:32 meperidine HCl [From Demerol] Allergy Rash/Hives Verified 04/16/19 13:32 morphine Allergy Rash/Hives Verified 04/16/19 13:32 propoxyphene napsylate Allergy Rash/Hives Verified 04/16/19 13:32 [From Darvocet-N 100] soy Allergy Anaphylaxis Verified 04/16/19 13:32 Sulfa (Sulfonamide Allergy Rash/Hives Verified 04/16/19 13:32 Antibiotics) tetracycline [Tetracycline] Allergy Rash/Hives Verified 04/16/19 13:32 tioconazole [From Monistat 1] Allergy Rash/Hives Verified 04/16/19 13:32 Review of Systems ROS Statement: Those systems with pertinent positive or pertinent negative responses have been documented in the HPI. ROS Other: All systems not noted in ROS Statement are negative. Past Medical History Past Medical History: GERD/Reflux, GI Bleed, Hypertension, Osteoarthritis (OA), Seizure Disorder, Thyroid Disorder Additional Past Medical History / Comment(s): history of depression History of Any Multi-Drug Resistant Organisms: ESBL Date of last positivie culture/infection: 01/08/18 MDRO Source:: ESBL URINE Past Surgical History: Back Surgery, Cholecystectomy, Heart Catheterization, Hernia Repair, Joint Replacement, Pacemaker, Tonsillectomy Additional Past Surgical History / Comment(s): LAP BAND INSERTED & REMOVED, GASTRIC SLEEVE (2016), GINI TOTAL KNEES, CERVICAL FUSION (2-7), BOWEL RESECTION., INCISIONAL HERNIA'S. STATES SEVERAL HEART CATHS-NO STENTS (DONE AT [facility]) COLECTOMY Past Anesthesia/Blood Transfusion Reactions: No Reported Reaction Additional Past Anesthesia/Blood Transfusion Reaction / Comment(s): blood transfusion-no reaction Type of Cardiac Device: Permanent Pacemaker Device Placement Date:: 10/12/17 Past Psychological History: Anxiety, Depression Smoking Status: Never smoker Past Alcohol Use History: None Reported Past Drug Use History: None Reported - Past Family History Mother Family Medical History: Pulmonary Embolus Additional Family Medical History / Comment(s): Multiple TIA's. Father Family Medical History: Cancer Additional Family Medical History / Comment(s): Lung Sister(s) Family Medical History: Cancer Additional Family Medical History / Comment(s): OVARIAN CANCER Course Vital Signs 04/19/19 04/19/19 12:55 15:13 Temperature 97.8 F Pulse Rate 68 61 Respiratory 17 18 Rate Blood Pressure 130/82 131/63 O2 Sat by Pulse 95 98 Oximetry Medical Decision Making - Lab Data Result diagrams: 04/19/19 14:00 04/19/19 14:00 Lab Results 04/19/19 04/19/19 04/19/19 Range/Units 14:00 14:00 14:00 WBC 5.9 (3.8-10.6) k/uL RBC 5.39 (3.80-5.40) m/uL Hgb 11.3 L (11.4-16.0) gm/dL Hct 36.9 (34.0-46.0) % MCV 68.4 L (80.0-100.0) fL MCH 20.9 L (25.0-35.0) pg MCHC 30.5 L (31.0-37.0) g/dL RDW 17.3 H (11.5-15.5) % Plt Count 326 (150-450) k/uL Neutrophils % 54 % Lymphocytes % 31 % Monocytes % 7 % Eosinophils % 6 % Basophils % 1 % Neutrophils # 3.2 (1.3-7.7) k/uL Lymphocytes # 1.8 (1.0-4.8) k/uL Monocytes # 0.4 (0-1.0) k/uL Eosinophils # 0.3 (0-0.7) k/uL Basophils # 0.1 (0-0.2) k/uL Hypochromasia Moderate Anisocytosis Slight Microcytosis Marked PT 9.7 (9.0-12.0) sec INR 0.9 (<1.2) APTT 24.5 (22.0-30.0) sec Sodium 142 (137-145) mmol/L Potassium 3.8 (3.5-5.1) mmol/L Chloride 106 (98-107) mmol/L Carbon Dioxide 27 (22-30) mmol/L Anion Gap 9 mmol/L BUN 11 (7-17) mg/dL Creatinine 0.84 (0.52-1.04) mg/dL Est GFR (CKD-EPI)AfAm 81 (>60 ml/min/1.73 sqM) Est GFR (CKD-EPI)NonAf 71 (>60 ml/min/1.73 sqM) Glucose 99 (74-99) mg/dL Calcium 9.5 (8.4-10.2) mg/dL Magnesium 2.4 H (1.6-2.3) mg/dL Total Bilirubin 0.8 (0.2-1.3) mg/dL AST 22 (14-36) U/L ALT 9 (4-34) U/L Alkaline Phosphatase 123 (38-126) U/L Total Protein 7.5 (6.3-8.2) g/dL Albumin 4.3 (3.5-5.0) g/dL Urine Color Urine Appearance (Clear) Urine pH (5.0-8.0) Ur Specific [place] (1.001-1.035) Urine Protein (Negative) Urine Glucose (UA) (Negative) Urine Ketones (Negative) Urine Blood (Negative) Urine Nitrite (Negative) Urine Bilirubin (Negative) Urine Urobilinogen (<2.0) mg/dL Ur Leukocyte Esterase (Negative) 04/19/19 Range/Units 15:17 WBC (3.8-10.6) k/uL RBC (3.80-5.40) m/uL Hgb (11.4-16.0) gm/dL Hct (34.0-46.0) % MCV (80.0-100.0) fL MCH (25.0-35.0) pg MCHC (31.0-37.0) g/dL RDW (11.5-15.5) % Plt Count (150-450) k/uL Neutrophils % % Lymphocytes % % Monocytes % % Eosinophils % % Basophils % % Neutrophils # (1.3-7.7) k/uL Lymphocytes # (1.0-4.8) k/uL Monocytes # (0-1.0) k/uL Eosinophils # (0-0.7) k/uL Basophils # (0-0.2) k/uL Hypochromasia Anisocytosis Microcytosis PT (9.0-12.0) sec INR (<1.2) APTT (22.0-30.0) sec Sodium (137-145) mmol/L Potassium (3.5-5.1) mmol/L Chloride (98-107) mmol/L Carbon Dioxide (22-30) mmol/L Anion Gap mmol/L BUN (7-17) mg/dL Creatinine (0.52-1.04) mg/dL Est GFR (CKD-EPI)AfAm (>60 ml/min/1.73 sqM) Est GFR (CKD-EPI)NonAf (>60 ml/min/1.73 sqM) Glucose (74-99) mg/dL Calcium (8.4-10.2) mg/dL Magnesium (1.6-2.3) mg/dL Total Bilirubin (0.2-1.3) mg/dL AST (14-36) U/L ALT (4-34) U/L Alkaline Phosphatase (38-126) U/L Total Protein (6.3-8.2) g/dL Albumin (3.5-5.0) g/dL Urine Color Light Yellow Urine Appearance Clear (Clear) Urine pH 6.0 (5.0-8.0) Ur Specific [place] 1.011 (1.001-1.035) Urine Protein Negative (Negative) Urine Glucose (UA) Negative (Negative) Urine Ketones 1+ H (Negative) Urine Blood Negative (Negative) Urine Nitrite Negative (Negative) Urine Bilirubin Negative (Negative) Urine Urobilinogen <2.0 (<2.0) mg/dL Ur Leukocyte Esterase Negative (Negative) Disposition Clinical Impression: Sinusitis, Headache Disposition: HOME SELF-CARE Condition: Good Instructions (If sedation given, give patient instructions): Acute Headache (ED) Additional Instructions: rx sent to pharmacy Prescriptions: Amoxic-Pot Clav 875-125Mg [Augmentin 875-125] 1 tab PO BID 10 Days #20 tab Is patient prescribed a controlled substance at d/c from ED?: No Referrals: Cade Menendez DO [Primary Care Provider] - 1-2 days Time of Disposition: 15:54
[2019-04-19 14:28] LABS: Anisocytosis Slight; Basophils # (A) 0.1 k/uL (0-0.2); Basophils % (A) 1 %; Eosinophils # (A) 0.3 k/uL (0-0.7); Eosinophils % (A) 6 %; HCT 36.9 % (34.0-46.0); HGB 11.3 gm/dL (11.4-16.0); Hypochromasia Moderate; Lymphocytes # (A) 1.8 k/uL (1.0-4.8); Lymphocytes % (A) 31 %; MCH 20.9 pg (25.0-35.0); MCHC 30.5 g/dL (31.0-37.0); MCV 68.4 fL (80.0-100.0); Microcytosis Marked; Monocytes # (A) 0.4 k/uL (0-1.0); Monocytes % (A) 7 %; Neutrophils # (A) 3.2 k/uL (1.3-7.7); Neutrophils % (A) 54 %; Platelet Count 326 k/uL (150-450); RBC 5.39 m/uL (3.80-5.40); RDW 17.3 % (11.5-15.5); WBC 5.9 k/uL (3.8-10.6)
[2019-04-19 14:30] LABS: Albumin 4.3 g/dL (3.5-5.0); Calcium 9.5 mg/dL (8.4-10.2); Magnesium 2.4 mg/dL (1.6-2.3); Potassium 3.8 mmol/L (3.5-5.1); Total Bilirubin 0.8 mg/dL (0.2-1.3); Total Protein 7.5 g/dL (6.3-8.2)
[2019-04-19 14:38] LABS: INR 0.9 (<1.2); Partial Thromboplastin Time 24.5 sec (22.0-30.0); Prothrombin Time 9.7 sec (9.0-12.0)
--- NOTE | 2019-04-19 15:00 | CT ---
EXAMINATION TYPE: CT brain wo con DATE OF EXAM: 04/19/2019 COMPARISON: 04/16/2019 HISTORY: Weakness, headache. CT DLP: 1099.4 mGycm Automated exposure control for dose reduction was used. FINDINGS: Ventricular system is midline. Hyperostosis of the calvarium. Calvarium is intact. No acute hemorrhag e or mass effect. No midline shift. Changes of chronic sinusitis mild generalized degenerative change with low-attenuation in the white matter which is nonspecific but most typical remote microvascular ischemia. Craniocervical junction is maintained. IMPRESSION: 1. Degenerative and nonspecific white matter changes most typical remote microvascular ischemia. 2. Sphenoidal sinusitis.
--- NOTE | 2019-04-19 15:02 | XR ---
EXAMINATION TYPE: XR chest 1V portable DATE OF EXAM: 04/19/2019 COMPARISON: Chest x-ray November 07, 2018 HISTORY: Dizziness and lethargy. TECHNIQUE: Single AP portable frontal upright view of the chest is obtained. FINDINGS: Elevated left hemidiaphragm redemonstrated. There is chronic parenchymal change without erlinda picious new focal air space opacity, pleural effusion, or pneumothorax seen. The cardiac silhouette size remains enlarged with dual lead pacemaker. Surgical change in the cervical spine is partially im aged. IMPRESSION: Cardiomegaly and chronic changes without acute pulmonary process.
[2019-04-19 15:14] VITALS: BP 131/63; PULSE 61; RESP 18
[2019-04-19 15:29] LABS: Appearance,Urine Clear (Clear); Bilirubin,Urine Negative (Negative); Color,Urine Light Yellow; Glucose,Urine (UA) Negative (Negative); Ketones,Urine 1+ (Negative); Protein,Urine Negative (Negative); Specific Gravity,Urine 1.011 (1.001-1.035)
[2019-04-19 15:30] LABS: Blood,Urine Negative (Negative); Leukocyte Esterase,Urine Negative (Negative); Nitrite,Urine Negative (Negative); Urobilinogen,Urine <2.0 mg/dL (<2.0)
== END 2019-04-19 16:00 | disposition home or self-care (01) ==
LOC: EC 11:39
DX: J32.3 Chronic sphenoidal sinusitis (principal); R82.4 Acetonuria; K21.9 Gastro-esophageal reflux disease without esophagitis; I10 Essential (primary) hypertension; M19.90 Unspecified osteoarthritis, unspecified site; G40.909 Epilepsy, unspecified, not intractable, without status epilepticus; E07.9 Disorder of thyroid, unspecified; F32.9 Major depressive disorder, single episode, unspecified; F41.9 Anxiety disorder, unspecified; Z88.1 Allergy status to other antibiotic agents; Z88.2 Allergy status to sulfonamides; Z88.5 Allergy status to narcotic agent; Z88.8 Allergy status to other drugs, medicaments and biological substances; Z91.018 Allergy to other foods; Z79.890 Hormone replacement therapy; Z79.899 Other long term (current) drug therapy; Z96.653 Presence of artificial knee joint, bilateral; Z98.1 Arthrodesis status; Z87.828 Personal history of other (healed) physical injury and trauma
CPT/HCPCS: 36415; 93005; 80053; 83735; 85025; 85610; 85730; 81003; 71045; 70450; 99284; 96374; 96375 ×2; 96361; J1200; J2405; J1885

== ENCOUNTER 2019-05-03 12:13 | Emergency (ER) | payer OTHER, MEDICARE ==
[2019-05-03 12:30] VITALS: PULSE 70
[2019-05-03 13:20] LABS: Anisocytosis Slight; Basophils # (A) 0.1 k/uL (0-0.2); Basophils % (A) 1 %; Eosinophils # (A) 0.2 k/uL (0-0.7); Eosinophils % (A) 4 %; HCT 37.1 % (34.0-46.0); Hypochromasia Marked; Lymphocytes # (A) 1.4 k/uL (1.0-4.8); Lymphocytes % (A) 25 %; MCH 20.6 pg (25.0-35.0); MCHC 29.6 g/dL (31.0-37.0); MCV 69.5 fL (80.0-100.0); Mean Platelet Volume 7.2; Microcytosis Marked; Monocytes # (A) 0.3 k/uL (0-1.0); Monocytes % (A) 5 %; Neutrophils # (A) 3.6 k/uL (1.3-7.7); Neutrophils % (A) 63 %; Platelet Count 315 k/uL (150-450); RBC 5.34 m/uL (3.80-5.40); RDW 17.5 % (11.5-15.5); WBC 5.6 k/uL (3.8-10.6)
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
[2019-05-03 13:30] LABS: Albumin 4.3 g/dL (3.5-5.0); Calcium 9.5 mg/dL (8.4-10.2); Potassium 3.6 mmol/L (3.5-5.1); Total Bilirubin 0.7 mg/dL (0.2-1.3); Total Protein 7.6 g/dL (6.3-8.2)
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
[2019-05-03] MEDS ORDERED: KETOROLAC 30 MG/ML 1 ML VIAL IVP STA (14:36)
[2019-05-03 15:11] VITALS: BP 134/89; RESP 16; TEMP 97.5
== END 2019-05-03 15:06 | disposition home or self-care (01) ==
LOC: EC 12:13
DX: S16.1XXA Strain of muscle, fascia and tendon at neck level, initial encounter (principal); M54.6 Pain in thoracic spine; R51 Headache; K21.9 Gastro-esophageal reflux disease without esophagitis; I10 Essential (primary) hypertension; M19.90 Unspecified osteoarthritis, unspecified site; G40.909 Epilepsy, unspecified, not intractable, without status epilepticus; E07.9 Disorder of thyroid, unspecified; F32.9 Major depressive disorder, single episode, unspecified; F41.9 Anxiety disorder, unspecified; Z88.1 Allergy status to other antibiotic agents; Z88.2 Allergy status to sulfonamides; Z88.5 Allergy status to narcotic agent; Z88.8 Allergy status to other drugs, medicaments and biological substances; Z91.018 Allergy to other foods; Z79.890 Hormone replacement therapy; Z79.899 Other long term (current) drug therapy; Z98.1 Arthrodesis status; Z96.653 Presence of artificial knee joint, bilateral; V47.5XXA Car driver injured in collision with fixed or stationary object in traffic accident, initial encounter; Y92.410 Unspecified street and highway as the place of occurrence of the external cause
CPT/HCPCS: 36415; 86900; 86901; 80053; 85025; 86850; 72125; 70450; 71260; 74177; 99285; 96374; J1885; Q9967

== ENCOUNTER 2019-05-05 20:13 | Emergency (ER) | payer MEDICARE, OTHER ==
[2019-05-05] MEDS ORDERED: KETOROLAC 30 MG/ML 1 ML VIAL IVP STA (20:30)
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
[2019-05-05 21:08] LABS: Anisocytosis Slight; Basophils # (A) 0.1 k/uL (0-0.2); Basophils % (A) 1 %; Eosinophils # (A) 0.3 k/uL (0-0.7); Eosinophils % (A) 4 %; HCT 30.7 % (34.0-46.0); Hypochromasia Marked; Lymphocytes # (A) 2.6 k/uL (1.0-4.8); Lymphocytes % (A) 38 %; MCH 21.7 pg (25.0-35.0); MCHC 30.8 g/dL (31.0-37.0); MCV 70.5 fL (80.0-100.0); Mean Platelet Volume 7.1; Microcytosis Marked; Monocytes # (A) 0.4 k/uL (0-1.0); Monocytes % (A) 6 %; Neutrophils # (A) 3.3 k/uL (1.3-7.7); Neutrophils % (A) 48 %; Platelet Count 331 k/uL (150-450); RBC 4.36 m/uL (3.80-5.40); RDW 17.2 % (11.5-15.5); WBC 6.8 k/uL (3.8-10.6)
[2019-05-05 21:09] LABS: HGB 9.5 gm/dL (11.4-16.0)
[2019-05-05 21:11] LABS: ALT 10 U/L (4-34); AST 23 U/L (14-36); African American GFR (CKD) >90 (>60 ml/min/1.73 sqM); Albumin 3.6 g/dL (3.5-5.0); Alkaline Phosphatase 96 U/L (38-126); Anion Gap 6 mmol/L; Blood Urea Nitrogen 11 mg/dL (7-17); Calcium 8.9 mg/dL (8.4-10.2); Carbon Dioxide 24 mmol/L (22-30); Chloride 111 mmol/L (98-107); Glucose 108 mg/dL (74-99); Non-African American GFR(CKD) 86 (>60 ml/min/1.73 sqM); Potassium 3.5 mmol/L (3.5-5.1); Sodium 141 mmol/L (137-145); Total Bilirubin 0.5 mg/dL (0.2-1.3); Total Protein 6.4 g/dL (6.3-8.2)
[2019-05-05 22:52] VITALS: RESP 18
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
[2019-05-05 23:33] VITALS: BP 132/77; PULSE 57; TEMP 97.8
== END 2019-05-05 23:32 | disposition home or self-care (01) ==
LOC: EC 20:13
DX: S20.211A Contusion of right front wall of thorax, initial encounter (principal); R10.30 Lower abdominal pain, unspecified; S30.0XXA Contusion of lower back and pelvis, initial encounter; K21.9 Gastro-esophageal reflux disease without esophagitis; I10 Essential (primary) hypertension; M19.90 Unspecified osteoarthritis, unspecified site; G40.909 Epilepsy, unspecified, not intractable, without status epilepticus; E07.9 Disorder of thyroid, unspecified; F32.9 Major depressive disorder, single episode, unspecified; F41.9 Anxiety disorder, unspecified; Z88.1 Allergy status to other antibiotic agents; Z88.2 Allergy status to sulfonamides; Z88.5 Allergy status to narcotic agent; Z88.8 Allergy status to other drugs, medicaments and biological substances; Z79.890 Hormone replacement therapy; Z79.899 Other long term (current) drug therapy; Z96.653 Presence of artificial knee joint, bilateral; Z98.1 Arthrodesis status; Z90.49 Acquired absence of other specified parts of digestive tract; V47.5XXA Car driver injured in collision with fixed or stationary object in traffic accident, initial encounter; Y92.410 Unspecified street and highway as the place of occurrence of the external cause
CPT/HCPCS: 36415; 93005; 80053; 84484; 85025; 82272; 76700; 99285; 96374; J1885

== ENCOUNTER 2019-05-14 12:44 | Emergency (ER) | payer OTHER, MEDICARE ==
[2019-05-14 12:49] VITALS: RESP 18; TEMP 97.7
[2019-05-14] MEDS ORDERED: SODIUM CHLORIDE 0.9% 500 ML 500 ML IV STA (13:30)
[2019-05-14 14:09] VITALS: PULSE 55
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
[2019-05-14 14:28] LABS: Anisocytosis Slight; Basophils # (A) 0.1 k/uL (0-0.2); Basophils % (A) 2 %; Eosinophils # (A) 0.3 k/uL (0-0.7); Eosinophils % (A) 7 %; HCT 34.7 % (34.0-46.0); HGB 10.2 gm/dL (11.4-16.0); Hypochromasia Marked; Lymphocytes # (A) 1.6 k/uL (1.0-4.8); Lymphocytes % (A) 37 %; MCHC 29.5 g/dL (31.0-37.0); MCV 71.1 fL (80.0-100.0); Mean Platelet Volume 7.5; Microcytosis Moderate; Monocytes # (A) 0.3 k/uL (0-1.0); Monocytes % (A) 6 %; Neutrophils % (A) 46 %; Platelet Count 332 k/uL (150-450); RBC 4.88 m/uL (3.80-5.40); RDW 17.1 % (11.5-15.5); WBC 4.4 k/uL (3.8-10.6)
[2019-05-14] MEDS ORDERED: KETOROLAC 30 MG/ML 1 ML VIAL IVP STA (14:29)
[2019-05-14] MEDS ORDERED: METOCLOPRAMIDE 5 MG/ML 2 ML VIAL IVP STA (14:30)
[2019-05-14 14:39] LABS: ALT 9 U/L (4-34); AST 21 U/L (14-36); African American GFR (CKD) >90 (>60 ml/min/1.73 sqM); Albumin 3.6 g/dL (3.5-5.0); Alkaline Phosphatase 107 U/L (38-126); Anion Gap 8 mmol/L; Blood Urea Nitrogen 8 mg/dL (7-17); Calcium 8.8 mg/dL (8.4-10.2); Carbon Dioxide 23 mmol/L (22-30); Chloride 110 mmol/L (98-107); Glucose 85 mg/dL (74-99); Magnesium 2.3 mg/dL (1.6-2.3); Non-African American GFR(CKD) 84 (>60 ml/min/1.73 sqM); Potassium 3.9 mmol/L (3.5-5.1); Sodium 141 mmol/L (137-145); Total Bilirubin 0.7 mg/dL (0.2-1.3); Total Protein 6.6 g/dL (6.3-8.2)
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
[2019-05-14] MEDS ORDERED: BUTALB/APAP/CAFF 50-325-40MG TAB PO STA (15:56)
[2019-05-14 16:05] VITALS: BP 135/87
== END 2019-05-14 16:27 | disposition home or self-care (01) ==
LOC: EC 12:44
DX: S09.90XA Unspecified injury of head, initial encounter (principal); J32.9 Chronic sinusitis, unspecified; K21.9 Gastro-esophageal reflux disease without esophagitis; I10 Essential (primary) hypertension; M19.90 Unspecified osteoarthritis, unspecified site; G40.909 Epilepsy, unspecified, not intractable, without status epilepticus; F32.9 Major depressive disorder, single episode, unspecified; F41.9 Anxiety disorder, unspecified; Z88.1 Allergy status to other antibiotic agents; Z88.2 Allergy status to sulfonamides; Z88.5 Allergy status to narcotic agent; Z88.8 Allergy status to other drugs, medicaments and biological substances; Z91.018 Allergy to other foods; Z79.890 Hormone replacement therapy; Z79.899 Other long term (current) drug therapy; Z96.653 Presence of artificial knee joint, bilateral; Z98.1 Arthrodesis status; V47.9XXA Unspecified car occupant injured in collision with fixed or stationary object in traffic accident, initial encounter; Y92.410 Unspecified street and highway as the place of occurrence of the external cause
CPT/HCPCS: 36415; 80053; 83735; 85025; 70450; 99284; 96374; 96375; J2765; J1885

== ENCOUNTER 2019-07-13 11:47 | Observation (INO) | payer MEDICARE ==
[2019-07-13] MEDS ORDERED: PANTOPRAZOLE 40 MG/10 ML VIAL IVP STA (12:06)
[2019-07-13] MEDS ORDERED: IOPAMIDOL CONTRAST (ORAL USE) VIAL PO PRN (12:06)
[2019-07-13] MEDS ORDERED: SODIUM CHLORIDE 0.9% 500 ML 500 ML IV STA (12:06)
[2019-07-13] MEDS ORDERED: ONDANSETRON 4 MG/2 ML VIAL IVP STA (12:06)
[2019-07-13] MEDS ORDERED: SODIUM CHLORIDE 0.9% 1,000 ML IV STA (12:06)
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
[2019-07-13 12:19] LABS: Anisocytosis Slight; Basophils # (A) 0.1 k/uL (0-0.2); Basophils % (A) 1 %; Eosinophils # (A) 0.3 k/uL (0-0.7); Eosinophils % (A) 6 %; HCT 34.2 % (34.0-46.0); HGB 10.2 gm/dL (11.4-16.0); Hypochromasia Marked; Lymphocytes # (A) 1.7 k/uL (1.0-4.8); Lymphocytes % (A) 34 %; MCH 20.7 pg (25.0-35.0); MCHC 29.8 g/dL (31.0-37.0); MCV 69.5 fL (80.0-100.0); Mean Platelet Volume 6.8; Microcytosis Marked; Monocytes # (A) 0.3 k/uL (0-1.0); Monocytes % (A) 6 %; Neutrophils # (A) 2.5 k/uL (1.3-7.7); Neutrophils % (A) 50 %; Platelet Count 358 k/uL (150-450); RBC 4.92 m/uL (3.80-5.40); RDW 16.2 % (11.5-15.5)
[2019-07-13 12:29] LABS: INR 0.9 (<1.2); Partial Thromboplastin Time 24.1 sec (22.0-30.0); Prothrombin Time 9.9 sec (9.0-12.0)
[2019-07-13 12:32] LABS: Albumin 3.8 g/dL (3.5-5.0); Calcium 8.9 mg/dL (8.4-10.2); Potassium 3.5 mmol/L (3.5-5.1); Total Bilirubin 0.6 mg/dL (0.2-1.3); Total Protein 6.8 g/dL (6.3-8.2)
[2019-07-13 13:08] LABS: Appearance,Urine Clear (Clear); Bilirubin,Urine Negative (Negative); Blood,Urine Negative (Negative); Color,Urine Colorless; Glucose,Urine (UA) Negative (Negative); Ketones,Urine Negative (Negative); Leukocyte Esterase,Urine Negative (Negative); Nitrite,Urine Negative (Negative); PH, Urine 6.5 (5.0-8.0); Protein,Urine Negative (Negative); Specific Gravity,Urine 1.002 (1.001-1.035); Urobilinogen,Urine <2.0 mg/dL (<2.0)
--- NOTE | 2019-07-13 13:41 | CT ---
EXAMINATION TYPE: CT abdomen pelvis w con DATE OF EXAM: 07/13/2019 HISTORY: Abd pain, fever CT DLP: 1077.8mGycm Automated Exposure Control for Dose Reduction was Utilized. CONTRAST: CT scan of the abdomen and pelvis is performed with IV Contrast, patient injected with 100 mL of Isov ue 300. COMPARISON: CT chest abdomen and pelvis May 03 2019 FINDINGS: LUNG BASES: Partial visualization of right-sided pacemaker wires redemonstrated. LIVER/GB: Gallbladder not seen and presumed surgically absent. PANCREAS: No significant abnormality is seen. SPLEEN: No significant abnormality is seen. ADRENALS: No significant abnormality is seen. KIDNEYS: No significant abnormality is seen. BOWEL: Surgical sutures epigastric region from suspected gastric sleeve surgery are redemonstrated. S table small to moderate size hiatal hernia. Oral contrast only seen in left-sided jejunal loops. No s uspicious small or large bowel dilatation. Wandering cecum current study anterior right midabdomen fo r reference coronal image 26. Diffuse scattered colonic diverticula. Areas of mild wall thickening in the descending colon redemonstrated in the midline coronal image 21. Partial colectomy changes with sutures sigmoid rectal colon axial image 64. [id number] wall thickening distal sigmoid colon an d rectum distal to sutures. UTERUS/ADNEXA: Anteverted uterus. LYMPH NODES: No greater than 1cm abdominal or pelvic lymph nodes are appreciated. OSSEOUS STRUCTURES: Some facet arthropathy lower lumbar levels. OTHER: No significant additional abnormality is seen. IMPRESSION: Possible new mild to moderate multifocal uncomplicated acute colitis. Some fluid in the r ight colon may reflect additional mild colitis or product of diarrhea. Correlate clinically. No well- formed drainable abscess is seen.
[2019-07-13] MEDS ORDERED: PIPERACILLIN-TAZOBACTAM 3.375 GM in SODIUM CHLORIDE 0.9% 100 ML IVPB STA (14:29)
[2019-07-13] MEDS ORDERED: NALOXONE 0.4 MG/ML 1 ML VIAL IV PRN (14:30)
[2019-07-13] MEDS ORDERED: ONDANSETRON 4 MG/2 ML VIAL IVP PRN (14:30)
[2019-07-13] MEDS: SODIUM CHLORIDE 0.9% 1,000 ML IV SCH ×2 (15:06→20:42)
[2019-07-13] MEDS ORDERED: ALBUTEROL NEBULIZED 2.5 MG/3 ML INHALATION PRN (15:56)
[2019-07-13] MEDS ORDERED: diphenhydrAMINE 25 MG CAP PO PRN (15:56)
[2019-07-13] MEDS ORDERED: MECLIZINE 25 MG TAB PO PRN (15:56)
[2019-07-13] MEDS ORDERED: ACETAMINOPHEN IV (For NPO) 1,000 MG in EMPTY BAG 1 BAG IVPB PRN (15:58)
[2019-07-13] MEDS: CARVEDILOL 3.125 MG TAB PO SCH (16:38)
[2019-07-13] MEDS: IBUPROFEN 800 MG TAB PO SCH ×2 (16:40→20:41)
[2019-07-13] MEDS: buPROPion XL 150 MG TAB.ER.24H PO SCH (20:41)
[2019-07-13] MEDS: LORazepam 0.5 MG TAB PO SCH (20:41)
[2019-07-13] MEDS: BACLOFEN 10 MG TAB PO SCH (20:41)
[2019-07-13] MEDS: ZOLPIDEM 10 MG TAB PO SCH (20:41)
[2019-07-13] MEDS: levETIRAcetam 500 MG TAB PO SCH (20:42)
[2019-07-14] MEDS: PIPERACILLIN-TAZOBACTAM 3.375 GM in SODIUM CHLORIDE 0.9% 100 ML IVPB SCH ×3 (00:02→15:55)
[2019-07-14] MEDS: LEVOTHYROXINE 50 MCG TAB PO SCH (05:49)
[2019-07-14] MEDS: SODIUM CHLORIDE 0.9% 1,000 ML IV SCH ×2 (05:49→15:56)
[2019-07-14 07:00] LABS: Anisocytosis Slight; Basophils # (A) 0.1 k/uL (0-0.2); Basophils % (A) 1 %; Eosinophils # (A) 0.3 k/uL (0-0.7); Eosinophils % (A) 7 %; HCT 29.2 % (34.0-46.0); Hypochromasia Marked; Lymphocytes % (A) 44 %; MCH 20.6 pg (25.0-35.0); MCHC 29.2 g/dL (31.0-37.0); MCV 70.8 fL (80.0-100.0); Mean Platelet Volume 7.5; Microcytosis Moderate; Monocytes # (A) 0.3 k/uL (0-1.0); Monocytes % (A) 6 %; Neutrophils # (A) 1.8 k/uL (1.3-7.7); Neutrophils % (A) 38 %; Platelet Count 285 k/uL (150-450); RBC 4.13 m/uL (3.80-5.40); RDW 16.6 % (11.5-15.5); WBC 4.6 k/uL (3.8-10.6)
[2019-07-14 07:14] LABS: Calcium 8.3 mg/dL (8.4-10.2)
[2019-07-14 07:17] LABS: HGB 8.5 gm/dL (11.4-16.0)
[2019-07-14] MEDS: PANTOPRAZOLE 40 MG/10 ML VIAL IV SCH (08:44)
[2019-07-14] MEDS: CITALOPRAM HYDROBROMIDE 20 MG TAB PO SCH (08:45)
[2019-07-14] MEDS: BACLOFEN 10 MG TAB PO SCH ×2 (08:45→21:17)
[2019-07-14] MEDS: amLODIPine 5 MG TAB PO SCH (08:45)
[2019-07-14] MEDS: IBUPROFEN 800 MG TAB PO SCH ×3 (08:45→21:17)
[2019-07-14] MEDS: levETIRAcetam 500 MG TAB PO SCH ×2 (08:45→21:17)
[2019-07-14] MEDS: CARVEDILOL 3.125 MG TAB PO SCH ×2 (08:45→17:53)
[2019-07-14] MEDS: metroNIDAZOLE-NS PMX 500 MG in SALINE 1 100ML.BAG IVPB SCH ×2 (12:34→17:53)
--- NOTE | 2019-07-14 13:42 | P.HPIM ---
History of Present Illness H&P Date: 07/14/19 Chief Complaint: Abdominal pain -y this is a 69 year-old female presents emergency Department with chief complaint of abdominal pain. Reports multiple abdominal surgeries including prior LAP-BAND with removal and gastric sleeve surgery, cholecystectomy and bowel resection due to diverticulitis. Patient currently sees Dr. Yancey. Complains of diffuse, waxing and waning abdominal pain, mostly left lower quadrant X 2 weeks, accompanied by nausea without emesis, constipation. Denies diarrhea .Patient denies any dysuria, hematuria, melena or hematochezia. Patient denies chest pain, cough, URI symptoms. CT of abdomen and pelvis reporting possible new mild to moderate multifocal uncomplicated acute colitis with right colon fluid, no well-formed drainable abscess noted .initiated on Zosyn and Flagyl IV antibiotics, IV fluid hydration .surgery consulted . Afebrile, normal WBC. Hemoglobin 10.2 on admission down to 8.5, suspect dilutional. Review of Systems ROS Statement: Those systems with pertinent positive or pertinent negative responses have been documented in the HPI. ROS Other: All systems not noted in ROS Statement are negative. Review of Systems GENERAL: Patient denies fever. Denies chills. EYES: Denies blurred vision. Denies vision changes. Denies eye pain. EARS, NOSE, MOUTH, & THROAT: Denies headache. Denies sore throat. Denies ear pain. RESPIRATORY: Denies cough. Denies shortness of breath. Denies sputum production. Denies hemoptysis. CARDIOVASCULAR: Denies chest pain or pressure. Denies palpitations. Denies arrhythmias. GASTROINTESTINAL: admits to acute abdominal pain with abdominal distention and decrease gas and constipation Also admits to intermitting diarrhea since gastric sleeve. GENITOURINARY: Denies urinary frequency. Denies burning. Denies dysuria. Denies cloudy urine. Denies blood in the urine. MUSCULOSKELETAL: Denies myalgias. Denies joint swelling. Denies decreased range of motion beyond patients baseline.suffers from degenerative osteoarthritis INTEGUMENTARY: Denies pruitis. Denies rash. PSYCHIATRIC: Denies suicidal or homicial ideations.positive for depression ENDOCRINE: Denies weight change. Denies polydipsia. Denies polyuria. HEMATOLOGIC: Denies bleeding disorders. Past Medical History Past Medical History: GERD/Reflux, GI Bleed, Hypertension, Osteoarthritis (OA), Seizure Disorder, Thyroid Disorder Additional Past Medical History / Comment(s): history of depression, bowel obstruction History of Any Multi-Drug Resistant Organisms: ESBL Date of last positivie culture/infection: 01/08/18 MDRO Source:: ESBL URINE Past Surgical History: Back Surgery, Cholecystectomy, Heart Catheterization, Hernia Repair, Joint Replacement, Pacemaker, Tonsillectomy Additional Past Surgical History / Comment(s): LAP BAND INSERTED & REMOVED, GASTRIC SLEEVE (2016), GINI TOTAL KNEES, CERVICAL FUSION (2-7), BOWEL RESECTION., INCISIONAL HERNIA'S. STATES SEVERAL HEART CATHS-NO STENTS (DONE AT [facility] & [facility]) COLECTOMY Past Anesthesia/Blood Transfusion Reactions: No Reported Reaction Additional Past Anesthesia/Blood Transfusion Reaction / Comment(s): blood transfusion-no reaction Type of Cardiac Device: Permanent Pacemaker Device Placement Date:: 10/12/17 Past Psychological History: Anxiety, Depression Additional Psychological History / Comment(s): lives with sister, uses walker when up. Smoking Status: Never smoker Past Alcohol Use History: None Reported Past Drug Use History: None Reported - Past Family History Mother Family Medical History: Pulmonary Embolus Additional Family Medical History / Comment(s): Multiple TIA's. Father Family Medical History: Cancer Additional Family Medical History / Comment(s): Lung Sister(s) Family Medical History: Cancer Additional Family Medical History / Comment(s): OVARIAN CANCER Medications and Allergies Home Medications Medication Instructions Recorded Confirmed Type Carvedilol [Coreg] 3.125 mg PO BID 11/11/17 07/13/19 History Levothyroxine Sodium [Synthroid] 50 mcg PO DAILY 11/11/17 07/13/19 History Meclizine [Antivert] 25 mg PO TID PRN 11/11/17 07/13/19 History Omeprazole 20 mg PO BID 11/11/17 07/13/19 History Potassium Chloride ER [K-Dur 20] 20 meq PO DAILY 11/11/17 07/13/19 History buPROPion XL [Wellbutrin XL] 150 mg PO HS 11/11/17 07/13/19 History levETIRAcetam [Keppra] 1,000 mg PO BID 12/11/17 07/13/19 History amLODIPine [Norvasc] 5 mg PO DAILY 01/08/18 07/13/19 History Citalopram Hydrobromide [CeleXA] 40 mg PO DAILY 06/23/18 07/13/19 History LORazepam [Ativan] 0.5 mg PO HS 11/07/18 07/13/19 History Zolpidem [Ambien] 10 mg PO HS 11/07/18 07/13/19 History Albuterol Inhaler [Ventolin Hfa 2 puff INHALATION RT-Q6H PRN 01/21/19 07/13/19 History Inhaler] Baclofen 10 mg PO BID 07/13/19 07/13/19 History Ibuprofen [Motrin] 800 mg PO TID 07/13/19 07/13/19 History diphenhydrAMINE [Benadryl] 25 mg PO HS PRN 07/13/19 07/13/19 History Allergies Allergy/AdvReac Type Severity Reaction Status Date / Time ciprofloxacin [From Cipro] Allergy Unknown Verified 07/13/19 12:41 ciprofloxacin HCl Allergy Unknown Verified 07/13/19 12:41 [From Cipro] codeine Allergy Rash/Hives Verified 07/13/19 12:41 hydrocodone bitartrate Allergy Rash/Hives Verified 07/13/19 12:41 [From Lortab] hydromorphone [From Dilaudid] Allergy Rash/Hives Verified 07/13/19 12:41 meperidine HCl [From Demerol] Allergy Rash/Hives Verified 07/13/19 12:41 morphine Allergy Rash/Hives Verified 07/13/19 12:41 propoxyphene napsylate Allergy Rash/Hives Verified 07/13/19 12:41 [From Darvocet-N 100] soy Allergy Anaphylaxis Verified 07/13/19 12:41 Sulfa (Sulfonamide Allergy Rash/Hives Verified 07/13/19 12:41 Antibiotics) tetracycline [Tetracycline] Allergy Rash/Hives Verified 07/13/19 12:41 tioconazole [From Monistat 1] Allergy Rash/Hives Verified 07/13/19 12:41 Physical Exam Vitals: Vital Signs Temp Pulse Pulse Resp BP BP Pulse Ox 07/14/19 07:00 98.0 F 54 L 17 114/67 93 L 07/13/19 19:12 97.7 F 54 L 14 116/72 90 L 07/13/19 16:37 60 94 L 07/13/19 15:12 97.6 F 56 L 15 144/69 94 L 07/13/19 14:52 76 16 132/78 100 07/13/19 11:50 97.8 F 69 18 130/79 97 Intake and Output 07/13/19 07/14/19 07/14/19 22:59 06:59 14:59 Intake Total 390 1040 Balance 390 1040 Intake: Intake, IV Titration 390 1040 Amount Sodium Chloride 0.9% 1, 390 1040 000 ml @ 130 mls/hr IV . Q7H42M [facility] Rx#:[id number] Other: Voiding Method Toilet Toilet Weight 72.8 kg GENERAL: This is a 69-year-old in no apparent distress at the time of examination. Pleasant and cooperative. HEENT: Head is atraumatic, normocephalic. Pupils are equal, round, and reactive to light. Sclerae anicteric. Conjunctivae are clear. Mucus membranes of the mouth are moist. Neck is supple. RESPIRATORY: Clear to auscultation. No wheezes, rales, or rhonchi. No use of accessory muscles. Patient maintaining oxygen saturation greater than 92%. No chest wall tenderness is noted on palpation or with deep breathing. CARDIOVASCULAR: Regular rate and rhythm. S1 and S2 noted. No systolic or diastolic murmur auscultated. No JVD noted GASTROINTESTINAL: distention noted. Abdomen diffuse tenderness, greatest in the left lower quadrant. Normal active bowel sounds auscultated x 4 quadrants. INTEGUMENTARY: No cyanosis. No jaundice. No rashes noted. No cellulitis noted. EXTREMITIES: 2+ peripheral pulses. No evidence of peripheral edema. No calf tenderness noted. NEUROLOGIC: Cranial nerves II-XII intact. PSYCHIATRIC: Awake, alert, and oriented X 3. Appropriate affect. Intact judgement and insight. Results CBC & Chem 7: 07/14/19 06:19 07/14/19 06:19 Labs: Abnormal Lab Results - Last 24 Hours (Table) 07/13/19 07/14/19 07/14/19 Range/Units 12:10 06:19 06:19 Hgb 10.2 L 8.5 L D (11.4-16.0) gm/dL Hct 29.2 L (34.0-46.0) % MCV 69.5 L 70.8 L (80.0-100.0) fL MCH 20.7 L 20.6 L (25.0-35.0) pg MCHC 29.8 L 29.2 L (31.0-37.0) g/dL RDW 16.2 H 16.6 H (11.5-15.5) % Chloride 112 H (98-107) mmol/L Calcium 8.3 L (8.4-10.2) mg/dL Thrombosis Risk Factor Assmnt - Choose All That Apply Any of the Below Risk Factors Present?: Yes Each Factor Represents 1 point: Obesity (BMI >25) Other Risk Factors: Yes Each Risk Factor Represents 2 Points: Age 61-74 years Other congenital or acquired thrombophilia - If yes, enter type in comment: No Thrombosis Risk Factor Assessment Total Risk Factor Score: 3 Thrombosis Risk Factor Assessment Level: Moderate Risk Assessment and Plan Assessment: Abdominal pain, Acute colitis, possible diverticulitis Anemia, suspect dilutional History of bowel obstruction History of seizure disorder hypothyroidism Mild depression hypertension Plan: Continue on current medication regimen ,monitoring and symptomatic treatment. Maintain on clear liquids, Flagyl, Zosyn. Surgery consulted. Close monitoring of coags, repeat labs ordered for a.m. Discharge planning pending surgical evaluation. The impression and plan of care has been dictated as directed. : I performed a history and examination of this patient, discussed the same with the dictator. I agree with the dictator's note ,documented as a scribe. Any additional findings or plans will be noted.
[2019-07-14] MEDS: ZOLPIDEM 10 MG TAB PO SCH (21:17)
[2019-07-14] MEDS: buPROPion XL 150 MG TAB.ER.24H PO SCH (21:17)
[2019-07-14] MEDS: LORazepam 0.5 MG TAB PO SCH (21:17)
[2019-07-15] MEDS: PIPERACILLIN-TAZOBACTAM 3.375 GM in SODIUM CHLORIDE 0.9% 100 ML IVPB SCH ×2 (01:06→09:03)
[2019-07-15] MEDS: metroNIDAZOLE-NS PMX 500 MG in SALINE 1 100ML.BAG IVPB SCH ×2 (01:08→05:38)
[2019-07-15] MEDS: SODIUM CHLORIDE 0.9% 1,000 ML IV SCH (01:17)
[2019-07-15] MEDS: LEVOTHYROXINE 50 MCG TAB PO SCH (05:37)
[2019-07-15 07:40] LABS: Anisocytosis Slight; Basophils % (A) 1 %; Eosinophils # (A) 0.4 k/uL (0-0.7); Eosinophils % (A) 9 %; HCT 30.5 % (34.0-46.0); HGB 8.8 gm/dL (11.4-16.0); Hypochromasia Marked; Lymphocytes # (A) 1.7 k/uL (1.0-4.8); Lymphocytes % (A) 39 %; MCH 20.9 pg (25.0-35.0); Mean Platelet Volume 7.2; Microcytosis Moderate; Monocytes # (A) 0.2 k/uL (0-1.0); Monocytes % (A) 5 %; Neutrophils # (A) 1.9 k/uL (1.3-7.7); Neutrophils % (A) 43 %; Platelet Count 298 k/uL (150-450); RBC 4.23 m/uL (3.80-5.40); RDW 16.5 % (11.5-15.5); WBC 4.4 k/uL (3.8-10.6)
[2019-07-15 07:42] VITALS: BP 151/79; PULSE 57; RESP 16; TEMP 98
[2019-07-15 07:49] LABS: African American GFR (CKD) >90 (>60 ml/min/1.73 sqM); Anion Gap 4 mmol/L; Blood Urea Nitrogen 4 mg/dL (7-17); Carbon Dioxide 24 mmol/L (22-30); Chloride 113 mmol/L (98-107); Glucose 77 mg/dL (74-99); Non-African American GFR(CKD) 86 (>60 ml/min/1.73 sqM); Potassium 3.5 mmol/L (3.5-5.1); Sodium 141 mmol/L (137-145)
--- NOTE | 2019-07-15 08:01 | P.GSCN ---
History of Present Illness Consult date: 07/14/19 Reason for Consult: colitis Requesting physician: Guerda Stark History of present illness: CHIEF COMPLAINT: Colitis HISTORY OF PRESENT ILLNESS: 69-year-old female presented to the emergency room to complain of abdominal pain. General surgery was consulted for evaluation. Patient denies nausea or vomiting. Denies diarrhea or constipation. Denies fever or chills. PAST MEDICAL HISTORY: See list. PAST SURGICAL HISTORY: See list. SOCIAL HISTORY: No illicit drug use. REVIEW OF SYSTEMS: CONSTITUTIONAL: Denies fever or chills. HEENT: Denies blurred vision, vision changes, or eye pain. Denies hemoptysis CARDIOVASCULAR: Denies chest pain or pressure. RESPIRATORY: No shortness of breath. GASTROINTESTINAL: Refer to HPI for pertinent findings HEMATOLOGIC: Denies bleeding disorders. GENITOURINARY: Denies any blood in urine. SKIN: Denies pruitis. Denies rash. PHYSICAL EXAM: VITAL SIGNS: Reviewed. GENERAL: Well-developed in no acute distress. HEENT: No sclera icterus. Extraocular movements grossly intact. Moist buccal mucosa. Head is atraumatic, normocephalic. ABDOMEN: Soft. Nondistended. Mild tenderness with palpation. NEUROLOGIC: Alert and oriented. Cranial nerves II through XII grossly intact. LABORATORY DATA: WBC 4.6. Hemoglobin 8.5. Platelet count 285. IMAGING: CT abdomen and pelvis: No suspicious small or large bowel dilation. Diffuse scattered colonic diverticula. Areas of mild wall thickening in the descending colon. Partial colectomy changes with sutures sigmoid rectal colon. Mild to moderate wall thickening distal sigmoid colon and rectum distal to sutures. Impression: Mild to moderate multifocal uncomplicated acute colitis. No well-f ormed drainable abscess is seen. ASSESSMENT: 1. Abdominal pain 2. Acute colitis PLAN: Clear liquid diet Continue antibiotics No surgical intervention recommended at this time Nurse practitioner note has been reviewed by physician. Signing provider agrees with the documented findings, assessment, and plan of care. Past Medical History Past Medical History: GERD/Reflux, GI Bleed, Hypertension, Osteoarthritis (OA), Seizure Disorder, Thyroid Disorder Additional Past Medical History / Comment(s): history of depression, bowel obstruction History of Any Multi-Drug Resistant Organisms: ESBL Year Discovered:: 01/08/18 MDRO Source:: ESBL URINE Past Surgical History: Back Surgery, Cholecystectomy, Heart Catheterization, Hernia Repair, Joint Replacement, Pacemaker, Tonsillectomy Additional Past Surgical History / Comment(s): LAP BAND INSERTED & REMOVED, GASTRIC SLEEVE (2016), GINI TOTAL KNEES, CERVICAL FUSION (2-7), BOWEL RESECTION., INCISIONAL HERNIA'S. STATES SEVERAL HEART CATHS-NO STENTS (DONE AT [facility] & [facility]) COLECTOMY Past Anesthesia/Blood Transfusion Reactions: No Reported Reaction Additional Past Anesthesia/Blood Transfusion Reaction / Comm: blood transfusion- no reaction Type of Cardiac Device: Permanent Pacemaker Device Placement Date:: 10/12/17 Past Psychological History: Anxiety, Depression Additional Psychological History / Comment(s): lives with sister, uses walker when up. Smoking Status: Never smoker Past Alcohol Use History: None Reported Past Drug Use History: None Reported - Past Family History Mother Family Medical History: Pulmonary Embolus Additional Family Medical History / Comment(s): Multiple TIA's. Father Family Medical History: Cancer Additional Family Medical History / Comment(s): Lung Sister(s) Family Medical History: Cancer Additional Family Medical History / Comment(s): OVARIAN CANCER Medications and Allergies Home Medications Medication Instructions Recorded Confirmed Type Carvedilol [Coreg] 3.125 mg PO BID 11/11/17 07/13/19 History Levothyroxine Sodium [Synthroid] 50 mcg PO DAILY 11/11/17 07/13/19 History Meclizine [Antivert] 25 mg PO TID PRN 11/11/17 07/13/19 History Omeprazole 20 mg PO BID 11/11/17 07/13/19 History Potassium Chloride ER [K-Dur 20] 20 meq PO DAILY 11/11/17 07/13/19 History buPROPion XL [Wellbutrin XL] 150 mg PO HS 11/11/17 07/13/19 History levETIRAcetam [Keppra] 1,000 mg PO BID 12/11/17 07/13/19 History amLODIPine [Norvasc] 5 mg PO DAILY 01/08/18 07/13/19 History Citalopram Hydrobromide [CeleXA] 40 mg PO DAILY 06/23/18 07/13/19 History LORazepam [Ativan] 0.5 mg PO HS 11/07/18 07/13/19 History Zolpidem [Ambien] 10 mg PO HS 11/07/18 07/13/19 History Albuterol Inhaler [Ventolin Hfa 2 puff INHALATION RT-Q6H PRN 01/21/19 07/13/19 History Inhaler] Baclofen 10 mg PO BID 07/13/19 07/13/19 History Ibuprofen [Motrin] 800 mg PO TID 07/13/19 07/13/19 History diphenhydrAMINE [Benadryl] 25 mg PO HS PRN 07/13/19 07/13/19 History Allergies Allergy/AdvReac Type Severity Reaction Status Date / Time ciprofloxacin [From Cipro] Allergy Unknown Verified 07/13/19 12:41 ciprofloxacin HCl Allergy Unknown Verified 07/13/19 12:41 [From Cipro] codeine Allergy Rash/Hives Verified 07/13/19 12:41 hydrocodone bitartrate Allergy Rash/Hives Verified 07/13/19 12:41 [From Lortab] hydromorphone [From Dilaudid] Allergy Rash/Hives Verified 07/13/19 12:41 meperidine HCl [From Demerol] Allergy Rash/Hives Verified 07/13/19 12:41 morphine Allergy Rash/Hives Verified 07/13/19 12:41 propoxyphene napsylate Allergy Rash/Hives Verified 07/13/19 12:41 [From Darvocet-N 100] soy Allergy Anaphylaxis Verified 07/13/19 12:41 Sulfa (Sulfonamide Allergy Rash/Hives Verified 07/13/19 12:41 Antibiotics) tetracycline [Tetracycline] Allergy Rash/Hives Verified 07/13/19 12:41 tioconazole [From Monistat 1] Allergy Rash/Hives Verified 07/13/19 12:41 Surgical - Exam Vital Signs Temp Pulse Resp BP Pulse Ox 97.8 F 69 18 130/79 97 07/13/19 11:50 07/13/19 11:50 07/13/19 11:50 07/13/19 11:50 07/13/19 11:50 Results - Labs 07/15/19 06:42 07/15/19 06:42 Abnormal Lab Results - Last 24 Hours (Table) 07/14/19 07/14/19 Range/Units 06:19 06:19 Hgb 8.5 L D (11.4-16.0) gm/dL Hct 29.2 L (34.0-46.0) % MCV 70.8 L (80.0-100.0) fL MCH 20.6 L (25.0-35.0) pg MCHC 29.2 L (31.0-37.0) g/dL RDW 16.6 H (11.5-15.5) % Chloride 112 H (98-107) mmol/L Calcium 8.3 L (8.4-10.2) mg/dL Diabetes panel 07/14/19 Range/Units 06:19 Sodium 140 (137-145) mmol/L Potassium 4.0 (3.5-5.1) mmol/L Chloride 112 H (98-107) mmol/L Carbon Dioxide 25 (22-30) mmol/L BUN 8 (7-17) mg/dL Creatinine 0.83 (0.52-1.04) mg/dL Glucose 77 (74-99) mg/dL Calcium 8.3 L (8.4-10.2) mg/dL Calcium panel 07/14/19 Range/Units 06:19 Calcium 8.3 L (8.4-10.2) mg/dL Pituitary panel 07/14/19 Range/Units 06:19 Sodium 140 (137-145) mmol/L Potassium 4.0 (3.5-5.1) mmol/L Chloride 112 H (98-107) mmol/L Carbon Dioxide 25 (22-30) mmol/L BUN 8 (7-17) mg/dL Creatinine 0.83 (0.52-1.04) mg/dL Glucose 77 (74-99) mg/dL Calcium 8.3 L (8.4-10.2) mg/dL Adrenal panel 07/14/19 Range/Units 06:19 Sodium 140 (137-145) mmol/L Potassium 4.0 (3.5-5.1) mmol/L Chloride 112 H (98-107) mmol/L Carbon Dioxide 25 (22-30) mmol/L BUN 8 (7-17) mg/dL Creatinine 0.83 (0.52-1.04) mg/dL Glucose 77 (74-99) mg/dL Calcium 8.3 L (8.4-10.2) mg/dL
[2019-07-15] MEDS: PANTOPRAZOLE 40 MG/10 ML VIAL IV SCH (09:02)
[2019-07-15] MEDS: amLODIPine 5 MG TAB PO SCH (09:03)
[2019-07-15] MEDS: levETIRAcetam 500 MG TAB PO SCH (09:03)
[2019-07-15] MEDS: CARVEDILOL 3.125 MG TAB PO SCH (09:03)
[2019-07-15] MEDS: BACLOFEN 10 MG TAB PO SCH (09:03)
[2019-07-15] MEDS: IBUPROFEN 800 MG TAB PO SCH (09:03)
[2019-07-15] MEDS: CITALOPRAM HYDROBROMIDE 20 MG TAB PO SCH (09:03)
--- NOTE | 2019-07-15 11:53 | P.PN ---
Subjective Progress Note Date: 07/15/19 CHIEF COMPLAINT: Colitis HISTORY OF PRESENT ILLNESS: Patient examined at the bedside with Dr. Yancey. Tolerating diet. Patient denies nausea or vomiting. Denies diarrhea or constipation. Reports a bowel movement this morning. Denies fever or chills. PHYSICAL EXAM: VITAL SIGNS: Reviewed. GENERAL: Well-developed in no acute distress. HEENT: No sclera icterus. Extraocular movements grossly intact. Moist buccal mucosa. Head is atraumatic, normocephalic. ABDOMEN: Soft. Nondistended. Nontender. NEUROLOGIC: Alert and oriented. Cranial nerves II through XII grossly intact. ASSESSMENT: 1. Abdominal pain 2. Acute colitis PLAN: Advance diet Continue antibiotics No surgical intervention recommended at this time Nurse practitioner note has been reviewed by physician. Signing provider agrees with the documented findings, assessment, and plan of care. Objective - Vital Signs Vital signs: Vital Signs Temp 98.0 F 07/15/19 07:00 Pulse 57 L 07/15/19 07:00 Resp 16 07/15/19 07:00 BP 151/79 07/15/19 07:00 Pulse Ox 98 07/15/19 07:00 Intake & Output 07/14/19 07/15/19 07/15/19 18:59 06:59 18:59 Intake Total 100 175 Output Total 400 Balance -300 175 Intake: Intake, IV Titration 100 Amount metroNIDAZOLE-NS PMX 500 100 mg In Saline 1 100ml.bag @ 100 mls/hr IVPB Q6HR [facility] Rx#:[id number] Oral 175 Output: Urine 400 Other: Voiding Method Toilet # Voids 1 3 - Labs CBC & Chem 7: 07/15/19 06:42 07/15/19 06:42 Labs: Abnormal Lab Results - Last 24 Hours (Table) 07/15/19 07/15/19 Range/Units 06:42 06:42 Hgb 8.8 L (11.4-16.0) gm/dL Hct 30.5 L (34.0-46.0) % MCV 72.0 L (80.0-100.0) fL MCH 20.9 L (25.0-35.0) pg MCHC 29.0 L (31.0-37.0) g/dL RDW 16.5 H (11.5-15.5) % Chloride 113 H (98-107) mmol/L BUN 4 L (7-17) mg/dL Calcium 8.0 L (8.4-10.2) mg/dL
--- NOTE | 2019-07-15 17:14 | P.DS ---
Providers Date of admission: 07/13/19 14:30 Expected date of discharge: 07/15/19 Attending physician: Cade Menendez Consults: 07/13/19 14:31 Consult Physician Routine Consulting Provider: Cade Menendez Consult Reason/Comments: medical care Do you want consulting provider notified?: Yes 07/14/19 10:58 Consult Physician Routine Consulting Provider: Doroteo Yancey Reason/Comments: colitis Do you want consulting provider notified?: Yes Primary care physician: Cade Menendez Hospital Course: Final Diagnoses: Abdominal pain, Acute colitis, possible diverticulitis Anemia, suspect dilutional History of bowel obstruction History of seizure disorder hypothyroidism Mild depression hypertension Hospital course:this is a 69 year-old female presents emergency Department with chief complaint of abdominal pain. Reports multiple abdominal surgeries including prior LAP-BAND with removal and gastric sleeve surgery, cholecystectomy and bowel resection due to diverticulitis. Patient currently sees Dr. Yancey. Complains of diffuse, waxing and waning abdominal pain, mostly left lower quadrant X 2 weeks, accompanied by nausea without emesis, constipation. Denies diarrhea .Patient denies any dysuria, hematuria, melena or hematochezia. Patient denies chest pain, cough, URI symptoms. CT of abdomen and pelvis reporting possible new mild to moderate multifocal uncomplicated acute colitis with right colon fluid, no well-formed drainable abscess noted .initiated on Zosyn and Flagyl IV antibiotics, IV fluid hydration .surgery consulted . Afebrile, normal WBC. Hemoglobin 10.2 on admission down to 8.5, suspect dilutional. Maintained on gentle IV fluid hydration, Flagyl, Zosyn.Positive bowel movement today.Evaluated by surgery with no surgical interventions recommended at this time.cleared by surgery for discharge. Patient is being discharged home in a stable condition with guarded prognosis. GENERAL: alert and oriented 3, no acute distress RESPIRATORY: Clear to auscultation. No wheezes, rales, or rhonchi. CARDIOVASCULAR: Regular rate and rhythm. S1 and S2 noted. No systolic or diastolic murmur auscultated. GASTROINTESTINAL: soft, nondistended ,minimal diffuse tenderness, positive bowel sounds. NEUROLOGIC: no focal deficits. The impression and plan of care has been dictated as directed. : I performed a history and examination of this patient, discussed the same with the dictator. I agree with the dictator's note ,documented as a scribe. Any additional findings or plans will be noted. Patient Condition at Discharge: Stable Plan - Discharge Summary Discharge Rx Participant: Yes New Discharge Prescriptions: New metroNIDAZOLE [Flagyl] 500 mg PO TID #30 tab Continue Potassium Chloride ER [K-Dur 20] 20 meq PO DAILY Omeprazole 20 mg PO BID Meclizine [Antivert] 25 mg PO TID PRN PRN Reason: Vertigo Levothyroxine Sodium [Synthroid] 50 mcg PO DAILY buPROPion XL [Wellbutrin XL] 150 mg PO HS Carvedilol [Coreg] 3.125 mg PO BID levETIRAcetam [Keppra] 1,000 mg PO BID amLODIPine [Norvasc] 5 mg PO DAILY Citalopram Hydrobromide [CeleXA] 40 mg PO DAILY Zolpidem [Ambien] 10 mg PO HS LORazepam [Ativan] 0.5 mg PO HS Albuterol Inhaler [Ventolin Hfa Inhaler] 2 puff INHALATION RT-Q6H PRN PRN Reason: Dyspnea Baclofen 10 mg PO BID Ibuprofen [Motrin] 800 mg PO TID diphenhydrAMINE [Benadryl] 25 mg PO HS PRN PRN Reason: Allergy Symptoms & itching Discharge Medication List Carvedilol [Coreg] 3.125 mg PO BID 11/11/17 [History] Levothyroxine Sodium [Synthroid] 50 mcg PO DAILY 11/11/17 [History] Meclizine [Antivert] 25 mg PO TID PRN 11/11/17 [History] Omeprazole 20 mg PO BID 11/11/17 [History] Potassium Chloride ER [K-Dur 20] 20 meq PO DAILY 11/11/17 [History] buPROPion XL [Wellbutrin XL] 150 mg PO HS 11/11/17 [History] levETIRAcetam [Keppra] 1,000 mg PO BID 12/11/17 [History] amLODIPine [Norvasc] 5 mg PO DAILY 01/08/18 [History] Citalopram Hydrobromide [CeleXA] 40 mg PO DAILY 06/23/18 [History] LORazepam [Ativan] 0.5 mg PO HS 11/07/18 [History] Zolpidem [Ambien] 10 mg PO HS 11/07/18 [History] Albuterol Inhaler [Ventolin Hfa Inhaler] 2 puff INHALATION RT-Q6H PRN 01/21/19 [History] Baclofen 10 mg PO BID 07/13/19 [History] Ibuprofen [Motrin] 800 mg PO TID 07/13/19 [History] diphenhydrAMINE [Benadryl] 25 mg PO HS PRN 07/13/19 [History] metroNIDAZOLE [Flagyl] 500 mg PO TID #30 tab 07/15/19 [Rx] Follow up Appointment(s)/Referral(s): Cade Menendez DO [Primary Care Provider] - 07/22/19 9:50 am Doroteo Yancey MD [STAFF PHYSICIAN] - 07/22/19 1:45 pm Ambulatory/Diagnostic Orders: Complete Blood Count w/diff [LAB.AMB] Time Frame: 3 Days, Location: None Selected Patient Instructions/Handouts: Colitis (ED), Full Liquid Diet (DC) Activity/Diet/Wound Care/Special Instructions: Full liquids advance as tolerated over the next couple days Discharge Disposition: HOME SELF-CARE
== END 2019-07-15 11:20 | disposition home or self-care (01) ==
LOC: EC 11:47 → INTOOBSV 14:30 → 4SSUR 14:30 → UNDODISIN 07-15 11:20
PROVIDERS: ADMIT Family Medicine; ATTEND Family Medicine
DX: K52.9 Noninfective gastroenteritis and colitis, unspecified (principal); D64.9 Anemia, unspecified; K57.30 Diverticulosis of large intestine without perforation or abscess without bleeding; G40.909 Epilepsy, unspecified, not intractable, without status epilepticus; E03.9 Hypothyroidism, unspecified; F32.9 Major depressive disorder, single episode, unspecified; M19.90 Unspecified osteoarthritis, unspecified site; K21.9 Gastro-esophageal reflux disease without esophagitis; F41.9 Anxiety disorder, unspecified; E66.9 Obesity, unspecified; Z68.31 Body mass index [BMI] 31.0-31.9, adult; I10 Essential (primary) hypertension; Z79.890 Hormone replacement therapy; Z79.1 Long term (current) use of non-steroidal anti-inflammatories (NSAID); Z79.899 Other long term (current) drug therapy; Z88.1 Allergy status to other antibiotic agents; Z88.5 Allergy status to narcotic agent; Z88.3 Allergy status to other anti-infective agents; Z88.2 Allergy status to sulfonamides; Z88.8 Allergy status to other drugs, medicaments and biological substances; Z91.018 Allergy to other foods; Z16.12 Extended spectrum beta lactamase (ESBL) resistance; Z87.19 Personal history of other diseases of the digestive system; Z90.49 Acquired absence of other specified parts of digestive tract; Z98.84 Bariatric surgery status; Z98.1 Arthrodesis status; Z96.653 Presence of artificial knee joint, bilateral; Z95.0 Presence of cardiac pacemaker; Z98.890 Other specified postprocedural states; Z82.49 Family history of ischemic heart disease and other diseases of the circulatory system; Z80.41 Family history of malignant neoplasm of ovary
CPT/HCPCS: 96376; 96361 ×3; 96365; 96366 ×2; 96367; 96375 ×2; 99285; 36415; 80053; 80048 ×2; 82150; 83690; 85025 ×3; 85610; 85730; 81003; 74177; G0378 ×3; J2543 ×3; J2405; C9113 ×3; Q9967; 96374

== ENCOUNTER 2019-07-17 13:16 | Emergency (ER) | payer MEDICARE ==
[2019-07-17] MEDS ORDERED: SODIUM CHLORIDE 0.9% 500 ML 500 ML IV STA (13:41)
[2019-07-17] MEDS ORDERED: PANTOPRAZOLE 40 MG/10 ML VIAL IVP STA (13:42)
[2019-07-17 13:57] LABS: Anisocytosis Slight; Basophils % (A) 1 %; Eosinophils # (A) 0.3 k/uL (0-0.7); Eosinophils % (A) 4 %; HCT 37.2 % (34.0-46.0); HGB 11.3 gm/dL (11.4-16.0); Hypochromasia Marked; Lymphocytes # (A) 1.9 k/uL (1.0-4.8); Lymphocytes % (A) 28 %; MCH 20.9 pg (25.0-35.0); MCHC 30.3 g/dL (31.0-37.0); Microcytosis Marked; Monocytes # (A) 0.4 k/uL (0-1.0); Monocytes % (A) 5 %; Neutrophils # (A) 4.1 k/uL (1.3-7.7); Neutrophils % (A) 60 %; Platelet Count 393 k/uL (150-450); RDW 16.5 % (11.5-15.5); WBC 6.8 k/uL (3.8-10.6)
--- NOTE | 2019-07-17 14:05 | ED ---
Abdominal Pain HPI - General Chief Complaint: Abdominal Pain Stated Complaint: Abd pain Time Seen by Provider: 07/17/19 13:31 Source: patient, RN notes reviewed Mode of arrival: wheelchair Limitations: no limitations - History of Present Illness Initial Comments: This a 69-year-old female presents emergency Department chief complaint of abdominal pain. Patient had a recent hospitalization for similar complaints was diagnosed with colitis she was discharged on Flagyl. She states that the pain is increased over the last 24 hours associated with black tarry stools. Patient states his pain worse and she had before. She had a recent CT which showed evidence of colitis. She has no dysuria no hematuria she states she's had decreased stool output. Denies fevers chills no chest pain or shortness breath denies any blood thinners. Patient is she had multiple prior abdominal surgeries. - Related Data Home Medications Medication Instructions Recorded Confirmed Carvedilol [Coreg] 3.125 mg PO BID 11/11/17 07/13/19 Levothyroxine Sodium [Synthroid] 50 mcg PO DAILY 11/11/17 07/13/19 Meclizine [Antivert] 25 mg PO TID PRN 11/11/17 07/13/19 Omeprazole 20 mg PO BID 11/11/17 07/13/19 Potassium Chloride ER [K-Dur 20] 20 meq PO DAILY 11/11/17 07/13/19 buPROPion XL [Wellbutrin XL] 150 mg PO HS 11/11/17 07/13/19 levETIRAcetam [Keppra] 1,000 mg PO BID 12/11/17 07/13/19 amLODIPine [Norvasc] 5 mg PO DAILY 01/08/18 07/13/19 Citalopram Hydrobromide [CeleXA] 40 mg PO DAILY 06/23/18 07/13/19 LORazepam [Ativan] 0.5 mg PO HS 11/07/18 07/13/19 Zolpidem [Ambien] 10 mg PO HS 11/07/18 07/13/19 Albuterol Inhaler [Ventolin Hfa 2 puff INHALATION RT-Q6H PRN 01/21/19 07/13/19 Inhaler] Baclofen 10 mg PO BID 07/13/19 07/13/19 Ibuprofen [Motrin] 800 mg PO TID 07/13/19 07/13/19 diphenhydrAMINE [Benadryl] 25 mg PO HS PRN 07/13/19 07/13/19 Previous Rx's Medication Instructions Recorded metroNIDAZOLE [Flagyl] 500 mg PO TID #30 tab 07/15/19 Allergies Allergy/AdvReac Type Severity Reaction Status Date / Time ciprofloxacin [From Cipro] Allergy Unknown Verified 07/17/19 13:22 ciprofloxacin HCl Allergy Unknown Verified 07/17/19 13:22 [From Cipro] codeine Allergy Rash/Hives Verified 07/17/19 13:22 hydrocodone bitartrate Allergy Rash/Hives Verified 07/17/19 13:22 [From Lortab] hydromorphone [From Dilaudid] Allergy Rash/Hives Verified 07/17/19 13:22 meperidine HCl [From Demerol] Allergy Rash/Hives Verified 07/17/19 13:22 morphine Allergy Rash/Hives Verified 07/17/19 13:22 propoxyphene napsylate Allergy Rash/Hives Verified 07/17/19 13:22 [From Darvocet-N 100] soy Allergy Anaphylaxis Verified 07/17/19 13:22 Sulfa (Sulfonamide Allergy Rash/Hives Verified 07/17/19 13:22 Antibiotics) tetracycline [Tetracycline] Allergy Rash/Hives Verified 07/17/19 13:22 tioconazole [From Monistat 1] Allergy Rash/Hives Verified 07/17/19 13:22 Review of Systems ROS Statement: Those systems with pertinent positive or pertinent negative responses have been documented in the HPI. ROS Other: All systems not noted in ROS Statement are negative. Past Medical History Past Medical History: GERD/Reflux, GI Bleed, Hypertension, Osteoarthritis (OA), Seizure Disorder, Thyroid Disorder Additional Past Medical History / Comment(s): history of depression, bowel obstruction History of Any Multi-Drug Resistant Organisms: ESBL Date of last positivie culture/infection: 01/08/18 MDRO Source:: ESBL URINE Past Surgical History: Back Surgery, Cholecystectomy, Heart Catheterization, Hernia Repair, Joint Replacement, Pacemaker, Tonsillectomy Additional Past Surgical History / Comment(s): LAP BAND INSERTED & REMOVED, GASTRIC SLEEVE (2016), GINI TOTAL KNEES, CERVICAL FUSION (2-7), BOWEL RESECTION., INCISIONAL HERNIA'S. STATES SEVERAL HEART CATHS-NO STENTS (DONE AT [facility] & [facility]) COLECTOMY Past Anesthesia/Blood Transfusion Reactions: No Reported Reaction Additional Past Anesthesia/Blood Transfusion Reaction / Comment(s): blood transfusion-no reaction Type of Cardiac Device: Permanent Pacemaker Device Placement Date:: 10/12/17 Past Psychological History: Anxiety, Depression Smoking Status: Never smoker Past Alcohol Use History: None Reported Past Drug Use History: None Reported - Past Family History Mother Family Medical History: Pulmonary Embolus Additional Family Medical History / Comment(s): Multiple TIA's. Father Family Medical History: Cancer Additional Family Medical History / Comment(s): Lung Sister(s) Family Medical History: Cancer Additional Family Medical History / Comment(s): OVARIAN CANCER General Exam Limitations: no limitations General appearance: alert, in no apparent distress Head exam: Present: atraumatic, normocephalic, normal inspection Eye exam: Present: normal appearance, PERRL, EOMI. Absent: scleral icterus, conjunctival injection, periorbital swelling Neck exam: Present: normal inspection. Absent: tenderness, meningismus, lymphadenopathy Respiratory exam: Present: normal lung sounds bilaterally. Absent: respiratory distress, wheezes, rales, rhonchi, stridor Cardiovascular Exam: Present: regular rate, normal rhythm, normal heart sounds. Absent: systolic murmur, diastolic murmur, rubs, gallop, clicks GI/Abdominal exam: Present: soft, tenderness (Mild to moderate left upper quad rant and left lower quadrant), normal bowel sounds. Absent: distended, guarding, rebound, rigid Back exam: Absent: CVA tenderness (R), CVA tenderness (L) Neurological exam: Present: alert Skin exam: Present: warm, dry, intact, normal color. Absent: rash Course Vital Signs 07/17/19 13:20 Temperature 97.8 F Pulse Rate 58 L Respiratory 18 Rate Blood Pressure 143/76 O2 Sat by Pulse 97 Oximetry Medical Decision Making - Medical Decision Making 69-year-old female presented for abdominal pain. Symptoms seem to be associated with her antibiotic use. We discussed other possible antibiotics though she has multiple ALLERGIES. Patient referred to continue this medication she is found be mildly hypokalemic was replaced in emergency department. Patient is tolerating oral intake. She has an appointment for follow-up in 2 days return parameters were discussed. - Lab Data Result diagrams: 07/17/19 13:35 07/17/19 13:35 Lab Results 07/17/19 07/17/19 07/17/19 Range/Units 13:35 13:35 13:35 WBC 6.8 (3.8-10.6) k/uL RBC 5.40 (3.80-5.40) m/uL Hgb 11.3 L (11.4-16.0) gm/dL Hct 37.2 (34.0-46.0) % MCV 69.0 L (80.0-100.0) fL MCH 20.9 L (25.0-35.0) pg MCHC 30.3 L (31.0-37.0) g/dL RDW 16.5 H (11.5-15.5) % Plt Count 393 (150-450) k/uL Neutrophils % 60 % Lymphocytes % 28 % Monocytes % 5 % Eosinophils % 4 % Basophils % 1 % Neutrophils # 4.1 (1.3-7.7) k/uL Lymphocytes # 1.9 (1.0-4.8) k/uL Monocytes # 0.4 (0-1.0) k/uL Eosinophils # 0.3 (0-0.7) k/uL Basophils # 0.0 (0-0.2) k/uL Hypochromasia Marked Anisocytosis Slight Microcytosis Marked Sodium 138 (137-145) mmol/L Potassium 3.2 L (3.5-5.1) mmol/L Chloride 103 (98-107) mmol/L Carbon Dioxide 25 (22-30) mmol/L Anion Gap 10 mmol/L BUN 6 L (7-17) mg/dL Creatinine 0.77 (0.52-1.04) mg/dL Est GFR (CKD-EPI)AfAm >90 (>60 ml/min/1.73 sqM) Est GFR (CKD-EPI)NonAf 78 (>60 ml/min/1.73 sqM) Glucose 108 H (74-99) mg/dL Plasma Lactic Acid Jamil 1.8 (0.7-2.0) mmol/L Calcium 9.7 (8.4-10.2) mg/dL Total Bilirubin 0.7 (0.2-1.3) mg/dL AST 22 (14-36) U/L ALT 12 (4-34) U/L Alkaline Phosphatase 122 (38-126) U/L Total Protein 7.8 (6.3-8.2) g/dL Albumin 4.6 (3.5-5.0) g/dL Lipase 71 (23-300) U/L Stool Occult Blood (Negative) 07/17/19 Range/Units 14:40 WBC (3.8-10.6) k/uL RBC (3.80-5.40) m/uL Hgb (11.4-16.0) gm/dL Hct (34.0-46.0) % MCV (80.0-100.0) fL MCH (25.0-35.0) pg MCHC (31.0-37.0) g/dL RDW (11.5-15.5) % Plt Count (150-450) k/uL Neutrophils % % Lymphocytes % % Monocytes % % Eosinophils % % Basophils % % Neutrophils # (1.3-7.7) k/uL Lymphocytes # (1.0-4.8) k/uL Monocytes # (0-1.0) k/uL Eosinophils # (0-0.7) k/uL Basophils # (0-0.2) k/uL Hypochromasia Anisocytosis Microcytosis Sodium (137-145) mmol/L Potassium (3.5-5.1) mmol/L Chloride (98-107) mmol/L Carbon Dioxide (22-30) mmol/L Anion Gap mmol/L BUN (7-17) mg/dL Creatinine (0.52-1.04) mg/dL Est GFR (CKD-EPI)AfAm (>60 ml/min/1.73 sqM) Est GFR (CKD-EPI)NonAf (>60 ml/min/1.73 sqM) Glucose (74-99) mg/dL Plasma Lactic Acid Jamil (0.7-2.0) mmol/L Calcium (8.4-10.2) mg/dL Total Bilirubin (0.2-1.3) mg/dL AST (14-36) U/L ALT (4-34) U/L Alkaline Phosphatase (38-126) U/L Total Protein (6.3-8.2) g/dL Albumin (3.5-5.0) g/dL Lipase (23-300) U/L Stool Occult Blood Negative (Negative) Disposition Clinical Impression: Abdominal pain Disposition: HOME SELF-CARE Condition: Stable Instructions (If sedation given, give patient instructions): Abdominal Pain (ED) Additional Instructions: Please return to the Emergency Department if symptoms worsen or any other concerns. Is patient prescribed a controlled substance at d/c from ED?: No Referrals: Cade Menendez DO [Primary Care Provider] - 1-2 days Time of Disposition: 14:59
[2019-07-17 14:06] LABS: ALT 12 U/L (4-34); AST 22 U/L (14-36); African American GFR (CKD) >90 (>60 ml/min/1.73 sqM); Albumin 4.6 g/dL (3.5-5.0); Alkaline Phosphatase 122 U/L (38-126); Anion Gap 10 mmol/L; Blood Urea Nitrogen 6 mg/dL (7-17); Calcium 9.7 mg/dL (8.4-10.2); Carbon Dioxide 25 mmol/L (22-30); Chloride 103 mmol/L (98-107); Glucose 108 mg/dL (74-99); Non-African American GFR(CKD) 78 (>60 ml/min/1.73 sqM); Potassium 3.2 mmol/L (3.5-5.1); Sodium 138 mmol/L (137-145); Total Bilirubin 0.7 mg/dL (0.2-1.3); Total Protein 7.8 g/dL (6.3-8.2)
[2019-07-17] MEDS ORDERED: POTASSIUM CHLORIDE ER 20 MEQ TAB.ER PO STA (14:51)
[2019-07-17 15:08] VITALS: BP 155/88; PULSE 60; RESP 17; TEMP 98.1
== END 2019-07-17 15:08 | disposition home or self-care (01) ==
LOC: EC 13:16
DX: R10.9 Unspecified abdominal pain (principal); E87.6 Hypokalemia; K92.1 Melena; R19.5 Other fecal abnormalities; K21.9 Gastro-esophageal reflux disease without esophagitis; I10 Essential (primary) hypertension; M19.90 Unspecified osteoarthritis, unspecified site; G40.909 Epilepsy, unspecified, not intractable, without status epilepticus; E07.9 Disorder of thyroid, unspecified; F32.9 Major depressive disorder, single episode, unspecified; F41.9 Anxiety disorder, unspecified; Z88.1 Allergy status to other antibiotic agents; Z88.2 Allergy status to sulfonamides; Z88.3 Allergy status to other anti-infective agents; Z88.5 Allergy status to narcotic agent; Z91.018 Allergy to other foods; Z79.1 Long term (current) use of non-steroidal anti-inflammatories (NSAID); Z79.890 Hormone replacement therapy; Z79.899 Other long term (current) drug therapy; Z87.19 Personal history of other diseases of the digestive system; Z90.49 Acquired absence of other specified parts of digestive tract; Z98.84 Bariatric surgery status; Z96.653 Presence of artificial knee joint, bilateral; Z98.1 Arthrodesis status
CPT/HCPCS: 36415; 80053; 83605; 83690; 85025; 82272; 99284; 96374; 96361; C9113

== ENCOUNTER 2019-07-26 17:48 | Inpatient (IN) | payer MEDICARE ==
[2019-07-26] MEDS ORDERED: SODIUM CHLORIDE 0.9% 1,000 ML IV STA (18:05)
[2019-07-26] MEDS ORDERED: ONDANSETRON 4 MG/2 ML VIAL IVP STA (18:05)
[2019-07-26 18:44] LABS: Anisocytosis Slight; Basophils # (A) 0.1 k/uL (0-0.2); Basophils % (A) 1 %; Eosinophils # (A) 0.3 k/uL (0-0.7); Eosinophils % (A) 5 %; HCT 38.5 % (34.0-46.0); HGB 11.3 gm/dL (11.4-16.0); Hypochromasia Marked; Lymphocytes # (A) 2.7 k/uL (1.0-4.8); Lymphocytes % (A) 40 %; MCH 20.6 pg (25.0-35.0); MCHC 29.5 g/dL (31.0-37.0); Mean Platelet Volume 7.1; Microcytosis Marked; Monocytes # (A) 0.4 k/uL (0-1.0); Monocytes % (A) 6 %; Neutrophils % (A) 44 %; Platelet Count 427 k/uL (150-450); RDW 16.6 % (11.5-15.5); WBC 6.7 k/uL (3.8-10.6)
[2019-07-26 18:55] LABS: ALT 11 U/L (4-34); AST 24 U/L (14-36); African American GFR (CKD) >90 (>60 ml/min/1.73 sqM); Albumin 4.5 g/dL (3.5-5.0); Alkaline Phosphatase 119 U/L (38-126); Anion Gap 11 mmol/L; Blood Urea Nitrogen 12 mg/dL (7-17); Calcium 9.5 mg/dL (8.4-10.2); Carbon Dioxide 20 mmol/L (22-30); Chloride 107 mmol/L (98-107); Glucose 105 mg/dL (74-99); Non-African American GFR(CKD) 89 (>60 ml/min/1.73 sqM); Potassium 4.2 mmol/L (3.5-5.1); Sodium 138 mmol/L (137-145); Total Bilirubin 0.3 mg/dL (0.2-1.3); Total Protein 7.8 g/dL (6.3-8.2)
--- NOTE | 2019-07-26 19:04 | ED ---
General Adult HPI - General Chief complaint: Abdominal Pain Stated complaint: abd pain, SOB Time Seen by Provider: 07/26/19 18:05 Source: patient Mode of arrival: ambulatory Limitations: no limitations - History of Present Illness Initial comments: Dictation was produced using [employer] dictation software. please excuse any grammatical, word or spelling errors. Chief Complaint: 69 Year old female with chief complaint of abdominal pain, n ausea History of Present Illness: 69-year-old female she presents today with abdominal pain and nausea. Patient was admitted last week treated for colitis. She just completed Flagyl on Friday. Patient states she has pain in her mid abdomen and left abdomen. She does complain of nausea. She does have some diarrhea. She states she's having fevers at home. She does complain of some intermittent cramping. Denies any radiation of symptoms. The ROS documented in this emergency department record has been reviewed and confirmed by me. Those systems with pertinent positive or negative responses have been documented in the HPI. All other systems are other negative and/or noncontributory. PHYSICAL EXAM: General Impression: Alert and oriented x3, not in acute distress HEENT: Normocephalic atraumatic, extra-ocular movements intact, pupils equal and reactive to light bilaterally, mucous membranes moist. Cardiovascular: Heart regular rate and rhythm, S1&S2 audible, no murmurs, rubs o r gallops Chest: Lungs clear to auscultation bilaterally, no rhonchi, no wheeze, no rales Abdomen: Bowel sounds present, abdomen soft, mild diffuse tenderness to palpation Musculoskeletal: Pulses present and equal in all extremities, no peripheral edema Motor: no focal deficits noted Neurological: CN II-XII grossly intact, no focal motor or sensory deficits noted Skin: Intact with no visualized rashes Psych: Normal affect and mood ED course: 69-year-old female presents with abdominal pain. Vital signs upon arrival are within acceptable limits. Patient's abdomen is soft. She does complain of however some mild pain. Laboratory evaluation obtained. No leukocytosis. Hemoglobin stable. Labs appear to be at baseline. Metabolic panel is unremarkable. KUB x-ray was obtained showing no acute processes. CT scan of the abdomen and pelvis was obtained for concern of surgical abdomen. CT shows that there is a dilatation to the appendix without inflammatory process. Clinical presentation concerning for acute appendicitis. Discussed patient case Dr. Yancey was went except patient's care. Patient started on Zosyn. - Related Data Home Medications Medication Instructions Recorded Confirmed Carvedilol [Coreg] 3.125 mg PO BID 11/11/17 07/26/19 Levothyroxine Sodium [Synthroid] 50 mcg PO DAILY 11/11/17 07/26/19 Meclizine [Antivert] 25 mg PO TID PRN 11/11/17 07/26/19 Omeprazole 20 mg PO BID 11/11/17 07/26/19 Potassium Chloride ER [K-Dur 20] 20 meq PO DAILY 11/11/17 07/26/19 buPROPion XL [Wellbutrin XL] 150 mg PO HS 11/11/17 07/26/19 levETIRAcetam [Keppra] 1,000 mg PO BID 12/11/17 07/26/19 amLODIPine [Norvasc] 5 mg PO DAILY 01/08/18 07/26/19 Citalopram Hydrobromide [CeleXA] 40 mg PO DAILY 06/23/18 07/26/19 LORazepam [Ativan] 0.5 mg PO HS 11/07/18 07/26/19 Zolpidem [Ambien] 10 mg PO HS 11/07/18 07/26/19 Albuterol Inhaler (Bulk) [Ventolin 2 puff INHALATION RT-Q6H PRN 01/21/19 07/26/19 Hfa Inhaler (Bulk)] Baclofen 10 mg PO BID 07/13/19 07/26/19 Ibuprofen [Motrin] 800 mg PO TID 07/13/19 07/26/19 diphenhydrAMINE [Benadryl] 25 mg PO HS PRN 07/13/19 07/26/19 Ferrous Sulfate [Feosol] 325 mg PO DAILY 07/26/19 07/26/19 Allergies Allergy/AdvReac Type Severity Reaction Status Date / Time ciprofloxacin [From Cipro] Allergy Unknown Verified 07/26/19 19:31 ciprofloxacin HCl Allergy Unknown Verified 07/26/19 19:31 [From Cipro] codeine Allergy Rash/Hives Verified 07/26/19 19:31 hydrocodone bitartrate Allergy Rash/Hives Verified 07/26/19 19:31 [From Lortab] hydromorphone [From Dilaudid] Allergy Rash/Hives Verified 07/26/19 19:31 meperidine HCl [From Demerol] Allergy Rash/Hives Verified 07/26/19 19:31 morphine Allergy Rash/Hives Verified 07/26/19 19:31 propoxyphene napsylate Allergy Rash/Hives Verified 07/26/19 19:31 [From Darvocet-N 100] soy Allergy Anaphylaxis Verified 07/26/19 19:31 Sulfa (Sulfonamide Allergy Rash/Hives Verified 07/26/19 19:31 Antibiotics) tetracycline [Tetracycline] Allergy Rash/Hives Verified 07/26/19 19:31 tioconazole [From Monistat 1] Allergy Rash/Hives Verified 07/26/19 19:31 Review of Systems ROS Statement: Those systems with pertinent positive or pertinent negative responses have been documented in the HPI. ROS Other: All systems not noted in ROS Statement are negative. Past Medical History Past Medical History: GERD/Reflux, GI Bleed, Hypertension, Osteoarthritis (OA), Seizure Disorder, Thyroid Disorder Additional Past Medical History / Comment(s): history of depression, bowel obstruction, colitis History of Any Multi-Drug Resistant Organisms: ESBL Date of last positivie culture/infection: 01/08/18 MDRO Source:: ESBL URINE Past Surgical History: Back Surgery, Cholecystectomy, Heart Catheterization, Hernia Repair, Joint Replacement, Pacemaker, Tonsillectomy Additional Past Surgical History / Comment(s): LAP BAND INSERTED & REMOVED, GASTRIC SLEEVE (2016), GINI TOTAL KNEES, CERVICAL FUSION (2-7), BOWEL RESECTION., INCISIONAL HERNIA'S. STATES SEVERAL HEART CATHS-NO STENTS (DONE AT [facility]) COLECTOMY Past Anesthesia/Blood Transfusion Reactions: No Reported Reaction Additional Past Anesthesia/Blood Transfusion Reaction / Comment(s): blood transfusion-no reaction Type of Cardiac Device: Permanent Pacemaker Device Placement Date:: 10/12/17 Past Psychological History: Anxiety, Depression Smoking Status: Never smoker Past Alcohol Use History: None Reported Past Drug Use History: None Reported - Past Family History Mother Family Medical History: Pulmonary Embolus Additional Family Medical History / Comment(s): Multiple TIA's. Father Family Medical History: Cancer Additional Family Medical History / Comment(s): Lung Sister(s) Family Medical History: Cancer Additional Family Medical History / Comment(s): OVARIAN CANCER General Exam Limitations: no limitations Course Vital Signs 07/26/19 07/26/19 18:00 19:52 Temperature 97.8 F Pulse Rate 85 60 Respiratory 20 18 Rate Blood Pressure 121/74 132/72 O2 Sat by Pulse 98 100 Oximetry Medical Decision Making - Lab Data Result diagrams: 07/26/19 18:27 07/26/19 18:27 Lab Results 07/26/19 07/26/19 Range/Units 18:27 18:27 WBC 6.7 (3.8-10.6) k/uL RBC 5.50 H (3.80-5.40) m/uL Hgb 11.3 L (11.4-16.0) gm/dL Hct 38.5 (34.0-46.0) % MCV 70.0 L (80.0-100.0) fL MCH 20.6 L (25.0-35.0) pg MCHC 29.5 L (31.0-37.0) g/dL RDW 16.6 H (11.5-15.5) % Plt Count 427 (150-450) k/uL Neutrophils % 44 % Lymphocytes % 40 % Monocytes % 6 % Eosinophils % 5 % Basophils % 1 % Neutrophils # 3.0 (1.3-7.7) k/uL Lymphocytes # 2.7 (1.0-4.8) k/uL Monocytes # 0.4 (0-1.0) k/uL Eosinophils # 0.3 (0-0.7) k/uL Basophils # 0.1 (0-0.2) k/uL Hypochromasia Marked Anisocytosis Slight Microcytosis Marked Sodium 138 (137-145) mmol/L Potassium 4.2 (3.5-5.1) mmol/L Chloride 107 (98-107) mmol/L Carbon Dioxide 20 L (22-30) mmol/L Anion Gap 11 mmol/L BUN 12 (7-17) mg/dL Creatinine 0.69 (0.52-1.04) mg/dL Est GFR (CKD-EPI)AfAm >90 (>60 ml/min/1.73 sqM) Est GFR (CKD-EPI)NonAf 89 (>60 ml/min/1.73 sqM) Glucose 105 H (74-99) mg/dL Calcium 9.5 (8.4-10.2) mg/dL Total Bilirubin 0.3 (0.2-1.3) mg/dL AST 24 (14-36) U/L ALT 11 (4-34) U/L Alkaline Phosphatase 119 (38-126) U/L Total Protein 7.8 (6.3-8.2) g/dL Albumin 4.5 (3.5-5.0) g/dL Lipase 130 (23-300) U/L Disposition Clinical Impression: Appendicitis Disposition: ADMITTED IP TO THIS HOSP Condition: Fair Referrals: Cade Menendez DO [Primary Care Provider] - 1-2 days Decision Time: 20:07
--- NOTE | 2019-07-26 19:04 | XR ---
EXAMINATION TYPE: XR KUB DATE OF EXAM: 07/26/2019 COMPARISON: NONE HISTORY: Pain TECHNIQUE: Single supine KUB image of the abdomen is obtained FINDINGS: Small bowel demonstrates no evidence for dilatation. A few scattered nonspecific small air-fluid leve l seen. Gas and fecal material is seen in non-distended colon. No convincing evidence for pneumoperitoneum. No unusual calcifications. The lung bases are clear. The osseous structures are intact. IMPRESSION: 1. Overall nonobstructive bowel gas pattern.
--- NOTE | 2019-07-26 19:41 | CT ---
EXAMINATION TYPE: CT abdomen pelvis w con DATE OF EXAM: 07/26/2019 COMPARISON: 07/13/2019 HISTORY: ABDOMINAL PAIN, COLITIS CT DLP: 942.4 mGycm CONTRAST: CT scan of the abdomen and pelvis is performed without Oral Contrast and with IV Contrast, patient in jected with 100 mL of Isovue 300. FINDINGS: LUNG BASES-: No visible nodule. No infiltrate. LIVER/GB: No calcified gallstones. No space occupying hepatic lesion. Biliary tree is of normal ca liber. PANCREAS: No inflammation. No distinct mass. SPLEEN: No splenic enlargement. No lesion seen. ADRENALS: No nodule. No thickening. KIDNEYS/BLADDER: No hydronephrosis. No nephrolithiasis. No distinct renal mass. Urinary bladder g rossly unremarkable. BOWEL: Gastric sleeve procedure noted. Postoperative changes identified about the sigmoid colon as we ll. There is mild dilatation of the appendix measuring 8.5 mm without inflammatory process. Correlate clinically. Small and large bowel are of normal caliber. No free air or abscess. GENITAL ORGANS: No gross abnormality. LYMPH NODES: No greater than 1cm abdominal or pelvic lymph nodes are appreciated. AORTA: No significant abnormality. OSSEOUS STRUCTURES: No significant abnormality is seen. OTHER: No significant additional abnormality is seen. IMPRESSION: 1. There is mild dilatation of the appendix measuring 8.5 mm without inflammatory process. Correlate clinically.
[2019-07-26] MEDS ORDERED: PIPERACILLIN-TAZOBACTAM 3.375 GM in SODIUM CHLORIDE 0.9% 100 ML IVPB STA (19:53)
[2019-07-26] MEDS ORDERED: ACETAMINOPHEN TAB 325 MG TAB PO PRN (20:05)
[2019-07-26] MEDS ORDERED: ONDANSETRON 4 MG/2 ML VIAL IVP PRN (20:05)
[2019-07-26] MEDS ORDERED: NALOXONE 0.4 MG/ML 1 ML VIAL IV PRN (20:05)
[2019-07-26] MEDS ORDERED: MORPHINE SULFATE 4 MG/ML SYRINGE IV PRN (20:05)
[2019-07-26] MEDS: SODIUM CHLORIDE 0.9% 1,000 ML IV SCH (20:36)
[2019-07-26 20:48] LABS: Appearance,Urine Clear (Clear); Bilirubin,Urine Negative (Negative); Blood,Urine Negative (Negative); Color,Urine Colorless; Glucose,Urine (UA) Negative (Negative); Ketones,Urine Negative (Negative); Leukocyte Esterase,Urine Moderate (Negative); Mucus,Urine Rare /hpf; Nitrite,Urine Negative (Negative); Protein,Urine Negative (Negative); RBC,Urine <1 /hpf (0-5); Specific Gravity,Urine 1.027 (1.001-1.035); Squamous Epithelial Cell,Urine 2 /hpf (0-4); Urobilinogen,Urine <2.0 mg/dL (<2.0); WBC,Urine 3 /hpf (0-5)
[2019-07-26] MEDS ORDERED: MECLIZINE 25 MG TAB PO PRN (21:46)
[2019-07-26] MEDS ORDERED: diphenhydrAMINE 25 MG CAP PO PRN (21:46)
[2019-07-26] MEDS: ZOLPIDEM 10 MG TAB PO SCH (22:32)
[2019-07-26] MEDS: IBUPROFEN 800 MG TAB PO SCH (22:33)
[2019-07-26] MEDS: BACLOFEN 10 MG TAB PO SCH (22:33)
[2019-07-26] MEDS: LORazepam 0.5 MG TAB PO SCH (22:33)
[2019-07-26] MEDS: buPROPion XL 150 MG TAB.ER.24H PO SCH (22:36)
[2019-07-26] MEDS: CARVEDILOL 3.125 MG TAB PO SCH (22:36)
[2019-07-26] MEDS: levETIRAcetam 500 MG TAB PO SCH (23:54)
[2019-07-27] MEDS: SODIUM CHLORIDE 0.9% 1,000 ML IV SCH ×2 (05:06→17:03)
[2019-07-27] MEDS: LEVOTHYROXINE 50 MCG TAB PO SCH (05:06)
[2019-07-27] MEDS: BACLOFEN 10 MG TAB PO SCH ×2 (07:37→19:56)
[2019-07-27] MEDS: IBUPROFEN 800 MG TAB PO SCH ×3 (07:37→22:07)
[2019-07-27] MEDS: PANTOPRAZOLE 40 MG TABLET PO SCH (07:37)
[2019-07-27] MEDS: POTASSIUM CHLORIDE ER 20 MEQ TAB.ER PO SCH (07:38)
[2019-07-27] MEDS: FERROUS SULFATE 325 MG TAB PO SCH (07:38)
[2019-07-27] MEDS: levETIRAcetam 500 MG TAB PO SCH ×2 (07:38→19:55)
[2019-07-27] MEDS: CARVEDILOL 3.125 MG TAB PO SCH ×2 (07:39→17:04)
[2019-07-27] MEDS: CITALOPRAM HYDROBROMIDE 20 MG TAB PO SCH (07:39)
--- NOTE | 2019-07-27 08:40 | P.HPIHPCON ---
History of Present Illness This is a pleasant 69-year-old female past medical history significant for hypertension, arthritis, cholecystectomy, lap band inserted and removed and colectomy, permanent pacemaker insertion. She presented to the emergency department with a three-day history of abdominal pain, diarrhea and nausea. She does have a history of colitis and recently completed a course of Flagyl. Her pain is in the mid and right lower quadrant of her abdomen. She currently has ongoing discomfort rated 2 out of 10. Acute abdominal series revealed an overall nonobstructive bowel gas pattern. CT of the abdomen and pelvis revealed mild dilation of the appendix measuring 8.5 mm without an inflammatory process noted. Laboratory data reviewed, WBC 6.7, hemoglobin 11.3, platelets 427, AST 24, ALT 11 and alkaline phosphatase 119. His been initiated on Zosyn in the emergency department. At the time of my exam: CONSTITUTIONAL: Denies fever. Denies chills. EYES: Denies blurred vision. Denies vision changes. Denies eye pain. EARS, NOSE, MOUTH & THROAT: Denies headache. Denies sore throat. Denies ear pain. CARDIOVASCULAR: Denies chest pain. Denies shortness of breath. Denies orthopnea. Denies PND. Denies palpitations. RESPIRATORY: Denies cough. GASTROINTESTINAL: Complains of abdominal pain. Denies Denies diarrhea. Denies constipation. Denies nausea. Denies vomiting. MUSCULOSKELETAL: Denies myalgias. INTEGUMENTARY: Denies pruitis. Denies rash. NEUROLOGIC: Denies numbness. Denies tingling. Denies weakness. PSYCHIATRIC: Denies anxiety. Denies depression. ENDOCRINE: Denies fatigue. Denies weight change. Denies polydipsia. Denies polyurina. GENITOURINARY: Denies burning, hematuria or urgency with micturation. HEMATOLOGIC: Denies history of anemia. Denies bleeding. PHYSICAL EXAMINATION Blood pressure 114/69 heart rate 64 afebrile and maintaining oxygen saturation on room air. CONSTITUTIONAL: No apparent distress. HEENT: Head is normocephalic. Pupils are equal, round. Sclerae anicteric. Mucous membranes of the mouth are moist. ABDOMEN: Soft, nontender. Positive bowel sounds. NEUROLOGIC EXAMINATION: Patient is awake, alert and oriented x3. ASSESSMENT Abdominal pain 3 days Appendicitis PLAN Plan for laparoscopic appendectomy with possible open. I have discussed the risks, benefits and alternative therapies for the above-mentioned procedure and for both sedation/analgesia as well as necessary blood product administration, if indicated, as they pertain to this patient. The patient has indicated understanding and acceptance of the risks and procedures discussed. Questions have been answered appropriately and she is agreeable to move forward with the above-stated procedure. Continue antibiotics. Further recommendations to follow based upon clinical course. The above impression and plan of care have been discussed and directed by the signing physician. Mackenzie Jonas, nurse practitioner, acting as scribe for signing physician. Consent for Procedure: I have explained the operation/procedure to the patient, including the risks, benefits, side effects, alternative therapies (including not receiving the proposed treatment or service), the likelihood of the patient achieving his/her goals, and potential recuperation problems for the procedure/sedation/analgesia, as well as any blood products, if indicated. I also explained to the patient the risks, benefits and side effects of the alternatives, as well as the risks related to not receiving the proposed procedure, care, treatment, or services. Past Medical History Past Medical History: GERD/Reflux, GI Bleed, Hypertension, Osteoarthritis (OA), Seizure Disorder, Thyroid Disorder Additional Past Medical History / Comment(s): history of depression, bowel obstruction, colitis History of Any Multi-Drug Resistant Organisms: ESBL Date of last positivie culture/infection: 01/08/18 MDRO Source:: ESBL URINE Past Surgical History: Back Surgery, Cholecystectomy, Heart Catheterization, Hernia Repair, Joint Replacement, Pacemaker, Tonsillectomy Additional Past Surgical History / Comment(s): LAP BAND INSERTED & REMOVED, GASTRIC SLEEVE (2016), GINI TOTAL KNEES, CERVICAL FUSION (2-7), BOWEL RESECTION., INCISIONAL HERNIA'S. STATES SEVERAL HEART CATHS-NO STENTS (DONE AT [facility] & [facility]) COLECTOMY Past Anesthesia/Blood Transfusion Reactions: No Reported Reaction Additional Past Anesthesia/Blood Transfusion Reaction / Comment(s): blood transfusion-no reaction Type of Cardiac Device: Permanent Pacemaker Device Placement Date:: 10/12/17 Past Psychological History: Anxiety, Depression Additional Psychological History / Comment(s): lives with sister, uses walker when up. Smoking Status: Never smoker Past Alcohol Use History: None Reported Past Drug Use History: None Reported - Past Family History Mother Family Medical History: Pulmonary Embolus Additional Family Medical History / Comment(s): Multiple TIA's. Father Family Medical History: Cancer Additional Family Medical History / Comment(s): Lung Sister(s) Family Medical History: Cancer Additional Family Medical History / Comment(s): OVARIAN CANCER Medications and Allergies Home Medications Medication Instructions Recorded Confirmed Type Carvedilol [Coreg] 3.125 mg PO BID 11/11/17 07/26/19 History Levothyroxine Sodium [Synthroid] 50 mcg PO DAILY 11/11/17 07/26/19 History Meclizine [Antivert] 25 mg PO TID PRN 11/11/17 07/26/19 History Omeprazole 20 mg PO BID 11/11/17 07/26/19 History Potassium Chloride ER [K-Dur 20] 20 meq PO DAILY 11/11/17 07/26/19 History buPROPion XL [Wellbutrin XL] 150 mg PO HS 11/11/17 07/26/19 History levETIRAcetam [Keppra] 1,000 mg PO BID 12/11/17 07/26/19 History amLODIPine [Norvasc] 5 mg PO DAILY 01/08/18 07/26/19 History Citalopram Hydrobromide [CeleXA] 40 mg PO DAILY 06/23/18 07/26/19 History LORazepam [Ativan] 0.5 mg PO HS 11/07/18 07/26/19 History Zolpidem [Ambien] 10 mg PO HS 11/07/18 07/26/19 History Albuterol Inhaler (Bulk) [Ventolin 2 puff INHALATION RT-Q6H PRN 01/21/19 07/26/19 History Hfa Inhaler (Bulk)] Baclofen 10 mg PO BID 07/13/19 07/26/19 History Ibuprofen [Motrin] 800 mg PO TID 07/13/19 07/26/19 History diphenhydrAMINE [Benadryl] 25 mg PO HS PRN 07/13/19 07/26/19 History Ferrous Sulfate [Feosol] 325 mg PO DAILY 07/26/19 07/26/19 History Allergies Allergy/AdvReac Type Severity Reaction Status Date / Time ciprofloxacin [From Cipro] Allergy Unknown Verified 07/26/19 19:31 ciprofloxacin HCl Allergy Unknown Verified 07/26/19 19:31 [From Cipro] codeine Allergy Rash/Hives Verified 07/26/19 19:31 hydrocodone bitartrate Allergy Rash/Hives Verified 07/26/19 19:31 [From Lortab] hydromorphone [From Dilaudid] Allergy Rash/Hives Verified 07/26/19 19:31 meperidine HCl [From Demerol] Allergy Rash/Hives Verified 07/26/19 19:31 morphine Allergy Rash/Hives Verified 07/26/19 19:31 propoxyphene napsylate Allergy Rash/Hives Verified 07/26/19 19:31 [From Darvocet-N 100] soy Allergy Anaphylaxis Verified 07/26/19 19:31 Sulfa (Sulfonamide Allergy Rash/Hives Verified 07/26/19 19:31 Antibiotics) tetracycline [Tetracycline] Allergy Rash/Hives Verified 07/26/19 19:31 tioconazole [From Monistat 1] Allergy Rash/Hives Verified 07/26/19 19:31 Surgical - Exam Vital Signs Temp Pulse Resp BP Pulse Ox 97.8 F 85 20 121/74 98 07/26/19 18:00 07/26/19 18:00 07/26/19 18:00 07/26/19 18:00 07/26/19 18:00 Results - Labs 07/26/19 18:27 07/26/19 18:27 Abnormal Lab Results - Last 24 Hours (Table) 07/26/19 07/26/19 07/26/19 Range/Units 18:27 18:27 20:38 RBC 5.50 H (3.80-5.40) m/uL Hgb 11.3 L (11.4-16.0) gm/dL MCV 70.0 L (80.0-100.0) fL MCH 20.6 L (25.0-35.0) pg MCHC 29.5 L (31.0-37.0) g/dL RDW 16.6 H (11.5-15.5) % Carbon Dioxide 20 L (22-30) mmol/L Glucose 105 H (74-99) mg/dL Ur Leukocyte Esterase Moderate H (Negative) Urine Mucus Rare H (None) /hpf Diabetes panel 07/26/19 Range/Units 18:27 Sodium 138 (137-145) mmol/L Potassium 4.2 (3.5-5.1) mmol/L Chloride 107 (98-107) mmol/L Carbon Dioxide 20 L (22-30) mmol/L BUN 12 (7-17) mg/dL Creatinine 0.69 (0.52-1.04) mg/dL Glucose 105 H (74-99) mg/dL Calcium 9.5 (8.4-10.2) mg/dL AST 24 (14-36) U/L ALT 11 (4-34) U/L Alkaline Phosphatase 119 (38-126) U/L Total Protein 7.8 (6.3-8.2) g/dL Albumin 4.5 (3.5-5.0) g/dL Calcium panel 07/26/19 Range/Units 18:27 Calcium 9.5 (8.4-10.2) mg/dL Albumin 4.5 (3.5-5.0) g/dL Pituitary panel 07/26/19 Range/Units 18:27 Sodium 138 (137-145) mmol/L Potassium 4.2 (3.5-5.1) mmol/L Chloride 107 (98-107) mmol/L Carbon Dioxide 20 L (22-30) mmol/L BUN 12 (7-17) mg/dL Creatinine 0.69 (0.52-1.04) mg/dL Glucose 105 H (74-99) mg/dL Calcium 9.5 (8.4-10.2) mg/dL Adrenal panel 07/26/19 Range/Units 18:27 Sodium 138 (137-145) mmol/L Potassium 4.2 (3.5-5.1) mmol/L Chloride 107 (98-107) mmol/L Carbon Dioxide 20 L (22-30) mmol/L BUN 12 (7-17) mg/dL Creatinine 0.69 (0.52-1.04) mg/dL Glucose 105 H (74-99) mg/dL Calcium 9.5 (8.4-10.2) mg/dL Total Bilirubin 0.3 (0.2-1.3) mg/dL AST 24 (14-36) U/L ALT 11 (4-34) U/L Alkaline Phosphatase 119 (38-126) U/L Total Protein 7.8 (6.3-8.2) g/dL Albumin 4.5 (3.5-5.0) g/dL
[2019-07-27] MEDS ORDERED: SODIUM CHLORIDE 0.9% 1,000 ML IV ONE (09:07)
[2019-07-27 09:11] VITALS: RESP 16
[2019-07-27] MEDS ORDERED: HEPARIN SODIUM,PORCINE 5,000 UNIT/ML 1 ML VIAL SQ ONE (09:19)
[2019-07-27] MEDS ORDERED: LIDOCAINE 1% INJ 10MG/ML (20 ML MDV) ONE (09:51)
[2019-07-27] MEDS ORDERED: ONDANSETRON 4 MG/2 ML VIAL ONE (09:51)
[2019-07-27] MEDS ORDERED: NEOSTIGMINE 1 MG/ML 10 ML VIAL ONE (09:51)
[2019-07-27] MEDS ORDERED: SUCCINYLCHOLINE CHLORIDE 100 MG/5 ML SYR IV ONE (09:51)
[2019-07-27] MEDS ORDERED: PROPOFOL 10 MG/ML 20 ML VIAL IV ONE (09:51)
[2019-07-27] MEDS ORDERED: DEXAMETHASONE SOD PHOS (MDV) 100 MG/10 ML VIAL ONE (09:51)
[2019-07-27] MEDS ORDERED: GLYCOPYRROLATE 0.2 MG/ML 2 ML VIAL ONE (09:51)
[2019-07-27] MEDS ORDERED: ROCURONIUM BROMIDE 10 MG/ML 5 ML VIAL IV ONE (09:51)
[2019-07-27] MEDS ORDERED: fentaNYL (PF) 50 MCG/ML 2 ML AMP ONE (09:51)
[2019-07-27] MEDS ORDERED: BUPIVACAIN-EPI 0.25%-1:200,000 30 ML VIAL SQ ONE (09:56)
[2019-07-27] MEDS ORDERED: ceFAZolin 1,000 MG VIAL IVPB ONE (10:09)
[2019-07-27] MEDS ORDERED: SODIUM CHLORIDE 0.9% 500 ML 500 ML IV ONE (10:32)
[2019-07-27] MEDS ORDERED: HYDROcodone/APAP 5-325MG 1 EACH TAB PO PRN (10:37)
[2019-07-27] MEDS ORDERED: HYDROmorphone 0.5 MG/0.5 ML SYRINGE IVP PRN (10:37)
[2019-07-27] MEDS ORDERED: NALOXONE 0.4 MG/ML 1 ML VIAL IV PRN (10:37)
[2019-07-27] MEDS ORDERED: LACTATED RINGERS 1,000 ML IV ONE (10:37)
--- NOTE | 2019-07-27 10:37 | P.OP ---
Date of Procedure: 07/27/19 Preoperative Diagnosis: Appendicitis Postoperative Diagnosis: Appendicitis Procedure(s) Performed: Laparoscopic appendectomy Anesthesia: BRYSON Surgeon: Doroteo Yancey Estimated Blood Loss (ml): 5 Pathology: other (Appendix) Condition: stable Disposition: PACU Description of Procedure: The patient's placed on the operating table in the supine position. The patient received general anesthesia. The abdomen was prepped and draped in the usual sterile fashion. The skin was anesthetized 1% local Xylocaine at the trocar sites. Using an 11 blade the skin was incised at the umbilicus. The umbilicus was grasped with a Joy clamp and then a Veress needle was placed into the peritoneal cavity. Position of the Veress needle was confirmed with positive drop test. After adequate insufflation a 5 mm trocar was placed into the peritoneal cavity. The abdomen was further insufflated. And then the laparoscope was placed in the peritoneal cavity. Next a 5 mm trocar was placed in the midline suprapubic position. And then a 10 mm trocar was placed in the midline epigastric position. The patient was rotated with the right side up and in Trendelenburg. The appendix was visualized. The appendix appeared to be inflamed. The appendix was grasped and then using the Harmonic scissors the mesoappendix was divided. A PDS Endoloop was then placed around the base of the appendix. And then the appendix was divided using Harmonic scissors. The appendix was placed into an Endo Catch and brought out through the 10 mm trocar site. The abdomen was irrigated. There is no bleeding seen. The trochars withdrawn. The skin was closed interrupted 3-0 Monocryl suture. Dermabond dressing was applied. Patient was sent to recovery room in stable condition.
[2019-07-27] MEDS: amLODIPine 5 MG TAB PO SCH (12:10)
--- NOTE | 2019-07-27 18:29 | P.CONS ---
History of Present Illness - Reason for Consult Consult date: 07/27/19 Medical management hypertension, depression Requesting physician: Doroteo Yancey - Chief Complaint Abdominal pain - History of Present Illness This is a 69 year-old female presents to the emergency Department with chief complaint of mid and lower right abdominal pain accompanied by nausea, diarrhea 3 days, in a patient with past medical history of permanent pacemaker, h ypertension, anxiety, gastroesophageal reflux disease, GI bleed, osteoarthritis, cholecystectomy, lap band removal, colectomy, colitis. Recently admitted for acute colitis of possible diverticulitis, completing Flagyl course. KUB reported overall nonobstructive bowel gas pattern, no evidence for dilatation. Abdomen/pelvis CT reported mild dilation of appendix measuring 8.5 mm without inflammatory process, no free air or abscess. Afebrile, normal WBC. Hemoglobin 11.3, platelets 427. T bili , LFTs unremarkable. Received Zosyn in the ER. Evaluated by Dr. Menendez prior to surgery. Review of Systems ROS Statement: Those systems with pertinent positive or pertinent negative responses have been documented in the HPI. ROS Other: All systems not noted in ROS Statement are negative. Review of Systems GENERAL: Patient denies fever. Denies chills. EYES: Denies blurred vision. Denies vision changes. Denies eye pain. EARS, NOSE, MOUTH, & THROAT: Denies headache. Denies sore throat. Denies ear pain. RESPIRATORY: Denies cough. Denies shortness of breath. Denies sputum production. Denies hemoptysis. CARDIOVASCULAR: Denies chest pain or pressure. Denies palpitations. Denies arrhythmias. GASTROINTESTINAL: admits to acute right-sided abdominal pain. Currently denies nausea, vomiting, diarrhea, constipation. GENITOURINARY: Denies urinary frequency. Denies burning. Denies dysuria. Denies cloudy urine. Denies blood in the urine. MUSCULOSKELETAL: Denies myalgias. Denies joint swelling. Denies decreased range of motion beyond patients baseline.suffers from degenerative osteoarthritis INTEGUMENTARY: Denies pruitis. Denies rash. PSYCHIATRIC: Denies suicidal or homicial ideations.positive for depression ENDOCRINE: Denies weight change. Denies polydipsia. Denies polyuria. HEMATOLOGIC: Denies bleeding disorders. Past Medical History Past Medical History: GERD/Reflux, GI Bleed, Hypertension, Osteoarthritis (OA), Seizure Disorder, Thyroid Disorder Additional Past Medical History / Comment(s): history of depression, bowel obstruction, colitis History of Any Multi-Drug Resistant Organisms: ESBL Year Discovered:: 01/08/18 MDRO Source:: ESBL URINE Past Surgical History: Back Surgery, Cholecystectomy, Heart Catheterization, Hernia Repair, Joint Replacement, Pacemaker, Tonsillectomy Additional Past Surgical History / Comment(s): LAP BAND INSERTED & REMOVED, GASTRIC SLEEVE (2016), GINI TOTAL KNEES, CERVICAL FUSION (2-7), BOWEL RESECTION., INCISIONAL HERNIA'S. STATES SEVERAL HEART CATHS-NO STENTS (DONE AT [facility] & [facility]) COLECTOMY Past Anesthesia/Blood Transfusion Reactions: No Reported Reaction Additional Past Anesthesia/Blood Transfusion Reaction / Comm: blood transfusion- no reaction Type of Cardiac Device: Permanent Pacemaker Device Placement Date:: 10/12/17 Past Psychological History: Anxiety, Depression Additional Psychological History / Comment(s): lives with sister, uses walker when up. Smoking Status: Never smoker Past Alcohol Use History: None Reported Past Drug Use History: None Reported - Past Family History Mother Family Medical History: Pulmonary Embolus Additional Family Medical History / Comment(s): Multiple TIA's. Father Family Medical History: Cancer Additional Family Medical History / Comment(s): Lung Sister(s) Family Medical History: Cancer Additional Family Medical History / Comment(s): OVARIAN CANCER Medications and Allergies Home Medications Medication Instructions Recorded Confirmed Type Carvedilol [Coreg] 3.125 mg PO BID 11/11/17 07/26/19 History Levothyroxine Sodium [Synthroid] 50 mcg PO DAILY 11/11/17 07/26/19 History Meclizine [Antivert] 25 mg PO TID PRN 11/11/17 07/26/19 History Omeprazole 20 mg PO BID 11/11/17 07/26/19 History Potassium Chloride ER [K-Dur 20] 20 meq PO DAILY 11/11/17 07/26/19 History buPROPion XL [Wellbutrin XL] 150 mg PO HS 11/11/17 07/26/19 History levETIRAcetam [Keppra] 1,000 mg PO BID 12/11/17 07/26/19 History amLODIPine [Norvasc] 5 mg PO DAILY 01/08/18 07/26/19 History Citalopram Hydrobromide [CeleXA] 40 mg PO DAILY 06/23/18 07/26/19 History LORazepam [Ativan] 0.5 mg PO HS 11/07/18 07/26/19 History Zolpidem [Ambien] 10 mg PO HS 11/07/18 07/26/19 History Albuterol Inhaler (Bulk) [Ventolin 2 puff INHALATION RT-Q6H PRN 01/21/19 07/26/19 History Hfa Inhaler (Bulk)] Baclofen 10 mg PO BID 07/13/19 07/26/19 History Ibuprofen [Motrin] 800 mg PO TID 07/13/19 07/26/19 History diphenhydrAMINE [Benadryl] 25 mg PO HS PRN 07/13/19 07/26/19 History Ferrous Sulfate [Feosol] 325 mg PO DAILY 07/26/19 07/26/19 History Allergies Allergy/AdvReac Type Severity Reaction Status Date / Time ciprofloxacin [From Cipro] Allergy Unknown Verified 07/26/19 19:31 ciprofloxacin HCl Allergy Unknown Verified 07/26/19 19:31 [From Cipro] codeine Allergy Rash/Hives Verified 07/26/19 19:31 hydrocodone bitartrate Allergy Rash/Hives Verified 07/26/19 19:31 [From Lortab] hydromorphone [From Dilaudid] Allergy Rash/Hives Verified 07/26/19 19:31 meperidine HCl [From Demerol] Allergy Rash/Hives Verified 07/26/19 19:31 morphine Allergy Rash/Hives Verified 07/26/19 19:31 propoxyphene napsylate Allergy Rash/Hives Verified 07/26/19 19:31 [From Darvocet-N 100] soy Allergy Anaphylaxis Verified 07/26/19 19:31 Sulfa (Sulfonamide Allergy Rash/Hives Verified 07/26/19 19:31 Antibiotics) tetracycline [Tetracycline] Allergy Rash/Hives Verified 07/26/19 19:31 tioconazole [From Monistat 1] Allergy Rash/Hives Verified 07/26/19 19:31 Physical Exam Vitals: Vital Signs Temp Pulse Pulse Pulse Resp BP BP 07/27/19 11:40 97.5 F L 64 16 131/75 07/27/19 11:14 71 16 126/59 07/27/19 10:59 79 16 134/60 07/27/19 10:44 97.4 F L 89 16 126/57 07/27/19 09:10 64 16 152/70 07/27/19 08:58 67 16 133/70 07/27/19 04:55 97.9 F 64 24 114/69 07/26/19 23:00 97.5 F L 60 18 123/74 07/26/19 19:52 60 18 132/72 Pulse Ox 07/27/19 11:40 92 L 07/27/19 11:14 92 L 07/27/19 10:59 95 07/27/19 10:44 96 07/27/19 09:10 07/27/19 08:58 95 07/27/19 04:55 94 L 07/26/19 23:00 94 L 07/26/19 19:52 100 Intake and Output 07/27/19 07/27/19 07/27/19 06:59 14:59 22:59 Intake Total 850 Output Total 5 Balance 845 Intake: IV 850 Output: Estimated Blood Loss 5 Other: Voiding Method Toilet # Voids 2 1 # Bowel Movements 0 GENERAL: This is a 69-year-old in no apparent distress at the time of examination. Pleasant and cooperative. HEENT: Head is atraumatic, normocephalic. Pupils are equal, round, and reactive to light. Sclerae anicteric. Conjunctivae are clear. Mucus membranes of the mouth are moist. Neck is supple. RESPIRATORY: Clear to auscultation. No wheezes, rales, or rhonchi. No use of accessory muscles. Patient maintaining oxygen saturation greater than 92%. No chest wall tenderness is noted on palpation or with deep breathing. CARDIOVASCULAR: Regular rate and rhythm. S1 and S2 noted. No systolic or diastolic murmur auscultated. No JVD noted GASTROINTESTINAL: distention noted. Abdomen diffuse tenderness, greatest in the left lower quadrant. Normal active bowel sounds auscultated x 4 quadrants. INTEGUMENTARY: No cyanosis. No jaundice. No rashes noted. No cellulitis noted. EXTREMITIES: 2+ peripheral pulses. No evidence of peripheral edema. No calf tenderness noted. NEUROLOGIC: Cranial nerves II-XII intact. PSYCHIATRIC: Awake, alert, and oriented X 3. Appropriate affect. Intact judgement and insight. Results CBC & Chem 7: 07/26/19 18:27 07/26/19 18:27 Labs: Abnormal Lab Results - Last 24 Hours (Table) 07/26/19 07/26/19 07/26/19 Range/Units 18:27 18:27 20:38 RBC 5.50 H (3.80-5.40) m/uL Hgb 11.3 L (11.4-16.0) gm/dL MCV 70.0 L (80.0-100.0) fL MCH 20.6 L (25.0-35.0) pg MCHC 29.5 L (31.0-37.0) g/dL RDW 16.6 H (11.5-15.5) % Carbon Dioxide 20 L (22-30) mmol/L Glucose 105 H (74-99) mg/dL Ur Leukocyte Esterase Moderate H (Negative) Urine Mucus Rare H (None) /hpf Assessment and Plan Assessment: Acute Abdominal pain, in a patient recently completing course of Flagyl for Acute colitis. Mild dilatation of the appendix measuring 8.5 mm without inflammatory process as per CT. Possible appendicitis. Anemia, suspect dilutional History of bowel obstruction History of seizure disorder hypothyroidism Mild depression hypertension Plan: Continue on current medication regime, monitoring and symptomatic treatment. Surgery pending this morning. Maintain gentle IV fluid hydration. Aggressive pulmonary toileting with incentive spirometer ordered. We'll review home meds and resume accordingly. GI and DVT prophylaxis in place with Protonix and Lovenox. Thank you Dr. Yancey for the consult. The impression and plan of care has been dictated as directed. : I performed a history and examination of this patient, discussed the same with the dictator. I agree with the dictator's note ,documented as a scribe. Any additional findings or plans will be noted.
[2019-07-27] MEDS: DOCUSATE 100 MG CAP PO SCH (19:55)
[2019-07-27] MEDS: LORazepam 0.5 MG TAB PO SCH (19:56)
[2019-07-27] MEDS: buPROPion XL 150 MG TAB.ER.24H PO SCH (19:56)
[2019-07-27] MEDS: traMADol 50 MG TAB PO PRN (20:04)
[2019-07-27] MEDS: ZOLPIDEM 10 MG TAB PO SCH (22:07)
[2019-07-28] MEDS: SODIUM CHLORIDE 0.9% 1,000 ML IV SCH ×2 (02:38→12:00)
[2019-07-28] MEDS: traMADol 50 MG TAB PO PRN (03:50)
[2019-07-28] MEDS: DOCUSATE 100 MG CAP PO SCH (07:38)
[2019-07-28] MEDS: POTASSIUM CHLORIDE ER 20 MEQ TAB.ER PO SCH (07:38)
[2019-07-28] MEDS: IBUPROFEN 800 MG TAB PO SCH (07:38)
[2019-07-28] MEDS: amLODIPine 5 MG TAB PO SCH (07:39)
[2019-07-28] MEDS: PANTOPRAZOLE 40 MG TABLET PO SCH (07:39)
[2019-07-28] MEDS: FERROUS SULFATE 325 MG TAB PO SCH (07:39)
[2019-07-28] MEDS: LEVOTHYROXINE 50 MCG TAB PO SCH (07:39)
[2019-07-28] MEDS: BACLOFEN 10 MG TAB PO SCH (07:39)
[2019-07-28] MEDS: CITALOPRAM HYDROBROMIDE 20 MG TAB PO SCH (07:39)
[2019-07-28] MEDS: levETIRAcetam 500 MG TAB PO SCH (07:40)
[2019-07-28 07:44] LABS: ALT 23 U/L (4-34); AST 36 U/L (14-36); African American GFR (CKD) >90 (>60 ml/min/1.73 sqM); Alkaline Phosphatase 111 U/L (38-126); Anion Gap 4 mmol/L; Blood Urea Nitrogen 7 mg/dL (7-17); Calcium 8.1 mg/dL (8.4-10.2); Carbon Dioxide 23 mmol/L (22-30); Chloride 108 mmol/L (98-107); Glucose 110 mg/dL (74-99); Non-African American GFR(CKD) >90 (>60 ml/min/1.73 sqM); Potassium 3.8 mmol/L (3.5-5.1); Sodium 135 mmol/L (137-145); Total Bilirubin 0.4 mg/dL (0.2-1.3); Total Protein 5.6 g/dL (6.3-8.2)
[2019-07-28] MEDS: CARVEDILOL 3.125 MG TAB PO SCH (07:46)
[2019-07-28 07:48] LABS: Anisocytosis Slight; Basophils % (A) 0 %; Eosinophils % (A) 0 %; HCT 28.6 % (34.0-46.0); Hypochromasia Marked; Lymphocytes # (A) 1.3 k/uL (1.0-4.8); Lymphocytes % (A) 15 %; MCH 20.4 pg (25.0-35.0); MCHC 28.9 g/dL (31.0-37.0); MCV 70.6 fL (80.0-100.0); Mean Platelet Volume 7.1; Microcytosis Marked; Monocytes # (A) 0.5 k/uL (0-1.0); Monocytes % (A) 6 %; Neutrophils # (A) 6.5 k/uL (1.3-7.7); Neutrophils % (A) 77 %; Platelet Count 299 k/uL (150-450); RBC 4.05 m/uL (3.80-5.40); RDW 16.9 % (11.5-15.5); WBC 8.5 k/uL (3.8-10.6)
[2019-07-28 07:56] LABS: HGB 8.3 gm/dL (11.4-16.0)
[2019-07-28 08:53] VITALS: BP 111/65; PULSE 63; TEMP 98.1
[2019-07-28] MEDS ORDERED: ENOXAPARIN 40 MG/0.4 ML SYRINGE SQ SCH (09:00)
--- NOTE | 2019-07-28 14:17 | P.PN ---
Subjective Progress Note Date: 07/28/19 This is a 69 year-old female presents to the emergency Department with chief complaint of mid and lower right abdominal pain accompanied by nausea, diarrhea 3 days, in a patient with past medical history of permanent pacemaker, hypertension, anxiety, gastroesophageal reflux disease, GI bleed, osteoarthrit is, cholecystectomy, lap band removal, colectomy, colitis. Recently admitted for acute colitis of possible diverticulitis, completing Flagyl course. KUB reported overall nonobstructive bowel gas pattern, no evidence for dilatation. Abdomen/pelvis CT reported mild dilation of appendix measuring 8.5 mm without inflammatory process, no free air or abscess. Afebrile, normal WBC. Hemoglobin 11.3, platelets 427. T bili , LFTs unremarkable. Received Zosyn in the ER. Evaluated by Dr. Menendez prior to surgery. 07/28/2019 status post laparoscopic appendectomy, tolerated procedure well. Pain controlled. Passing flatus, no bowel movement. Denies chest pain, palpitations or increased shortness of breath. Denies lightheadedness, dizziness or focal deficits. Afebrile. Hemoglobin 8.3. significant clinical improvement Objective - Vital Signs Vital signs: Vital Signs Temp 98.1 F 07/28/19 07:00 Pulse 63 07/28/19 07:00 Resp 16 07/28/19 07:00 BP 111/65 07/28/19 07:00 Pulse Ox 94 L 07/28/19 07:00 Intake & Output 07/27/19 07/28/19 07/28/19 18:59 06:59 18:59 Intake Total 850 Output Total 5 Balance 845 Intake: IV 850 Output: Estimated Blood Loss 5 Other: # Voids 1 1 - Exam GENERAL: This is a 69-year-old in no apparent distress at the time of examination. Pleasant and cooperative. HEENT: Head is atraumatic, normocephalic. Pupils are equal, round, and reactive to light. Sclerae anicteric. Conjunctivae are clear. Mucus membranes of the mouth are moist. Neck is supple. RESPIRATORY: Clear to auscultation. No wheezes, rales, or rhonchi. No use of accessory muscles. Patient maintaining oxygen saturation greater than 92%. No chest wall tenderness is noted on palpation or with deep breathing. CARDIOVASCULAR: Regular rate and rhythm. S1 and S2 noted. No systolic or diastolic murmur auscultated. No JVD noted GASTROINTESTINAL: Soft, mildly distended, status post surgery. Positive bowel sounds INTEGUMENTARY: No cyanosis. No jaundice. No rashes noted. No cellulitis noted. EXTREMITIES: 2+ peripheral pulses. No evidence of peripheral edema. No calf tenderness noted. NEUROLOGIC: Cranial nerves II-XII intact. PSYCHIATRIC: Awake, alert, and oriented X 3. Appropriate affect. Intact judgement and insight. - Labs CBC & Chem 7: 07/28/19 06:47 07/28/19 06:47 Labs: Abnormal Lab Results - Last 24 Hours (Table) 07/28/19 07/28/19 Range/Units 06:47 06:47 Hgb 8.3 L D (11.4-16.0) gm/dL Hct 28.6 L (34.0-46.0) % MCV 70.6 L (80.0-100.0) fL MCH 20.4 L (25.0-35.0) pg MCHC 28.9 L (31.0-37.0) g/dL RDW 16.9 H (11.5-15.5) % Sodium 135 L (137-145) mmol/L Chloride 108 H (98-107) mmol/L Glucose 110 H (74-99) mg/dL Calcium 8.1 L (8.4-10.2) mg/dL Total Protein 5.6 L (6.3-8.2) g/dL Albumin 3.0 L (3.5-5.0) g/dL Assessment and Plan Assessment: Acute Abdominal pain, in a patient recently completing course of Flagyl for Acute colitis. Mild dilatation of the appendix measuring 8.5 mm without inflammatory process as per CT. Status post appendectomy for acute appendicitis. Anemia, suspect dilutional, EBL 5 MLS. History of bowel obstruction History of seizure disorder hypothyroidism Mild depression hypertension Plan: Continue on current medication regime, monitoring and symptomatic treatment. Patient being discharged home as per her primary-surgery. Maintain aggressive pulmonary toileting with incentive spirometer as previously advised. Follow-up with PCP in one week. The impression and plan of care has been dictated as directed. : I performed a history and examination of this patient, discussed the same with the dictator. I agree with the dictator's note ,documented as a scribe. Any additional findings or plans will be noted.
--- NOTE | 2019-07-28 14:21 | P.DS ---
Providers Date of admission: 07/27/19 13:53 Attending physician: Doroteo Yancey Consults: 07/27/19 10:37 Consult Physician Routine Consulting Provider: Cade Menendez Consult Reason/Comments: Medical management Do you want consulting provider notified?: Yes Primary care physician: Cade Menendez [facility] Course: This is a pleasant 69-year-old female who presented to the hospital with symptoms of abdominal discomfort onto have acute appendicitis and underwent a laparoscopic appendectomy. Surgery was performed yesterday without incident. Blood pressure 111/65 heart rate 63 afebrile maintaining oxygen saturation on room air. Laboratory data reviewed, WBC 8.5, hemoglobin 8.3, platelets 299, sodium 135, potassium 3.8, creatinine 0.61. She tolerated dinner last night and breakfast this morning without abdominal pain, nausea, vomiting or diarrhea. Abdomen is soft, nontender with steri-strips clean, dry and intact. She has been advised to follow-up with Dr. Yancey in the office in one week. Limited physical activity until follow up appointment. She may shower, no tub baths, soaking or swimming. Steri-strips will stay in place until follow up appointment. Patient Condition at Discharge: Stable Plan - Discharge Summary Discharge Rx Participant: No New Discharge Prescriptions: No Action Potassium Chloride ER [K-Dur 20] 20 meq PO DAILY Omeprazole 20 mg PO BID Meclizine [Antivert] 25 mg PO TID PRN PRN Reason: Vertigo Levothyroxine Sodium [Synthroid] 50 mcg PO DAILY buPROPion XL [Wellbutrin XL] 150 mg PO HS Carvedilol [Coreg] 3.125 mg PO BID levETIRAcetam [Keppra] 1,000 mg PO BID amLODIPine [Norvasc] 5 mg PO DAILY Citalopram Hydrobromide [CeleXA] 40 mg PO DAILY Zolpidem [Ambien] 10 mg PO HS LORazepam [Ativan] 0.5 mg PO HS Albuterol Inhaler (Bulk) [Ventolin Hfa Inhaler (Bulk)] 2 puff INHALATION RT- Q6H PRN PRN Reason: Dyspnea Baclofen 10 mg PO BID Ibuprofen [Motrin] 800 mg PO TID diphenhydrAMINE [Benadryl] 25 mg PO HS PRN PRN Reason: Allergy Symptoms & itching Ferrous Sulfate [Feosol] 325 mg PO DAILY Discharge Medication List Carvedilol [Coreg] 3.125 mg PO BID 11/11/17 [History] Levothyroxine Sodium [Synthroid] 50 mcg PO DAILY 11/11/17 [History] Meclizine [Antivert] 25 mg PO TID PRN 11/11/17 [History] Omeprazole 20 mg PO BID 11/11/17 [History] Potassium Chloride ER [K-Dur 20] 20 meq PO DAILY 11/11/17 [History] buPROPion XL [Wellbutrin XL] 150 mg PO HS 11/11/17 [History] levETIRAcetam [Keppra] 1,000 mg PO BID 12/11/17 [History] amLODIPine [Norvasc] 5 mg PO DAILY 01/08/18 [History] Citalopram Hydrobromide [CeleXA] 40 mg PO DAILY 06/23/18 [History] LORazepam [Ativan] 0.5 mg PO HS 11/07/18 [History] Zolpidem [Ambien] 10 mg PO HS 11/07/18 [History] Albuterol Inhaler (Bulk) [Ventolin Hfa Inhaler (Bulk)] 2 puff INHALATION RT-Q6H PRN 01/21/19 [History] Baclofen 10 mg PO BID 07/13/19 [History] Ibuprofen [Motrin] 800 mg PO TID 07/13/19 [History] diphenhydrAMINE [Benadryl] 25 mg PO HS PRN 07/13/19 [History] Ferrous Sulfate [Feosol] 325 mg PO DAILY 07/26/19 [History] Follow up Appointment(s)/Referral(s): Cade Menendez DO [Primary Care Provider] - 08/03/19 9:00 am Doroteo Yancey MD [STAFF PHYSICIAN] - 1 Week (office prefers that patient call for appointment. ) Patient Instructions/Handouts: Laparoscopic Appendectomy (DC) Activity/Diet/Wound Care/Special Instructions: No driving while taking narcotics. You may shower, no soaking or tub baths. No lifting greater than 10 pounds. Limited activity until follow-up with Dr. Yancey. Discharge Disposition: HOME SELF-CARE
== END 2019-07-28 12:57 | disposition home or self-care (01) | DRG 343 ==
LOC: EC 17:48 → 6NMEDSUR 20:05 → OBSVTOIN 07-27 13:53
PROVIDERS: ADMIT Surgery; ATTEND Surgery
PROC: 0DTJ4ZZ Resection of Appendix, Percutaneous Endoscopic Approach (ICD-10-PCS; principal; 2019-07-27 07:01)
DX: K37 Unspecified appendicitis (principal); I10 Essential (primary) hypertension; G40.909 Epilepsy, unspecified, not intractable, without status epilepticus; E03.9 Hypothyroidism, unspecified; M19.90 Unspecified osteoarthritis, unspecified site; F32.9 Major depressive disorder, single episode, unspecified; F41.9 Anxiety disorder, unspecified; K21.9 Gastro-esophageal reflux disease without esophagitis; K57.90 Diverticulosis of intestine, part unspecified, without perforation or abscess without bleeding; D64.9 Anemia, unspecified; Z79.890 Hormone replacement therapy; Z79.899 Other long term (current) drug therapy; Z80.41 Family history of malignant neoplasm of ovary; Z95.0 Presence of cardiac pacemaker; Z98.84 Bariatric surgery status; Z88.1 Allergy status to other antibiotic agents; Z88.5 Allergy status to narcotic agent; Z88.2 Allergy status to sulfonamides; Z88.8 Allergy status to other drugs, medicaments and biological substances; Z86.19 Personal history of other infectious and parasitic diseases; Z90.49 Acquired absence of other specified parts of digestive tract; Z98.890 Other specified postprocedural states; Z90.89 Acquired absence of other organs; Z82.49 Family history of ischemic heart disease and other diseases of the circulatory system; Z80.1 Family history of malignant neoplasm of trachea, bronchus and lung
CPT/HCPCS: 36415; 74018; 74177; 80053; 81001; 83690; 85025; 88304; 96361; 96374; 99285

== ENCOUNTER 2019-09-03 17:04 | Emergency (ER) | payer OTHER, MEDICARE ==
[2019-09-03 17:11] VITALS: RESP 18; TEMP 97.6
[2019-09-03] MEDS ORDERED: IBUPROFEN 600 MG TAB PO STA (17:34)
[2019-09-03] MEDS ORDERED: ONDANSETRON ODT 4 MG TAB PO STA (17:34)
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
[2019-09-03] MEDS ORDERED: ONDANSETRON 4 MG ODT STARTER PACK 2 TAB BTL PO STA (18:42)
[2019-09-03 18:59] VITALS: BP 136/83; PULSE 55
== END 2019-09-03 19:03 | disposition home or self-care (01) ==
LOC: EC 17:04
DX: S06.0X0A Concussion without loss of consciousness, initial encounter (principal); K21.9 Gastro-esophageal reflux disease without esophagitis; I10 Essential (primary) hypertension; M19.90 Unspecified osteoarthritis, unspecified site; G40.909 Epilepsy, unspecified, not intractable, without status epilepticus; E07.9 Disorder of thyroid, unspecified; F41.9 Anxiety disorder, unspecified; F32.9 Major depressive disorder, single episode, unspecified; Z79.890 Hormone replacement therapy; Z79.899 Other long term (current) drug therapy; Z79.1 Long term (current) use of non-steroidal anti-inflammatories (NSAID); Z88.1 Allergy status to other antibiotic agents; Z88.5 Allergy status to narcotic agent; Z88.2 Allergy status to sulfonamides; Z91.018 Allergy to other foods; Z87.19 Personal history of other diseases of the digestive system; Z98.890 Other specified postprocedural states; Z95.5 Presence of coronary angioplasty implant and graft; Z92.0 Personal history of contraception; Z95.0 Presence of cardiac pacemaker; V49.50XA Passenger injured in collision with unspecified motor vehicles in traffic accident, initial encounter; Y92.410 Unspecified street and highway as the place of occurrence of the external cause
CPT/HCPCS: 72125; 70450; 99284; S0119

== ENCOUNTER 2019-09-13 05:51 | Emergency (ER) | payer MEDICARE, OTHER ==
[2019-09-13 06:10] VITALS: TEMP 97.8
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
--- NOTE | 2019-09-13 07:14 | ED ---
General Adult HPI - General Chief complaint: Recheck/Abnormal Lab/Rx Stated complaint: Pacemaker issues Time Seen by Provider: 09/13/19 06:22 Source: patient, RN notes reviewed Mode of arrival: ambulatory Limitations: no limitations - History of Present Illness Initial comments: 69-year-old female presents emergency Department chief complaint of pacemaker movement. Patient states that she has no symptoms at this time. She denies any chest pain, shortness breath, nausea, vomiting, headache, dizziness, shortness breath or any URI symptoms. Patient called on-call lead technical architect recommended her to come to the emergency department. Patient states it was placed by Dr. Paredes 2 years ago. - Related Data Home Medications Medication Instructions Recorded Confirmed Carvedilol [Coreg] 3.125 mg PO BID 11/11/17 07/26/19 Levothyroxine Sodium [Synthroid] 50 mcg PO DAILY 11/11/17 07/26/19 Meclizine [Antivert] 25 mg PO TID PRN 11/11/17 07/26/19 Omeprazole 20 mg PO BID 11/11/17 07/26/19 Potassium Chloride ER [K-Dur 20] 20 meq PO DAILY 11/11/17 07/26/19 buPROPion XL [Wellbutrin XL] 150 mg PO HS 11/11/17 07/26/19 levETIRAcetam [Keppra] 1,000 mg PO BID 12/11/17 07/26/19 amLODIPine [Norvasc] 5 mg PO DAILY 01/08/18 07/26/19 Citalopram Hydrobromide [CeleXA] 40 mg PO DAILY 06/23/18 07/26/19 LORazepam [Ativan] 0.5 mg PO HS 11/07/18 07/26/19 Zolpidem [Ambien] 10 mg PO HS 11/07/18 07/26/19 Albuterol Inhaler (Mhu) [Ventolin 2 puff INHALATION RT-Q6H PRN 01/21/19 07/26/19 Hfa Inhaler (Mhu)] Baclofen 10 mg PO BID 07/13/19 07/26/19 Ibuprofen [Motrin] 800 mg PO TID 07/13/19 07/26/19 diphenhydrAMINE [Benadryl] 25 mg PO HS PRN 07/13/19 07/26/19 Ferrous Sulfate [Iron (65 MG 325 mg PO DAILY 07/26/19 07/26/19 Elemental)] Previous Rx's Medication Instructions Recorded Ondansetron Odt [Zofran Odt] 4 mg PO Q8HR PRN #10 tab 09/03/19 Allergies Allergy/AdvReac Type Severity Reaction Status Date / Time ciprofloxacin [From Cipro] Allergy Unknown Verified 09/13/19 06:11 ciprofloxacin HCl Allergy Unknown Verified 09/13/19 06:11 [From Cipro] codeine Allergy Rash/Hives Verified 09/13/19 06:11 hydrocodone bitartrate Allergy Rash/Hives Verified 09/13/19 06:11 [From Lortab] hydromorphone [From Dilaudid] Allergy Rash/Hives Verified 09/13/19 06:11 meperidine HCl [From Demerol] Allergy Rash/Hives Verified 09/13/19 06:11 morphine Allergy Rash/Hives Verified 09/13/19 06:11 propoxyphene napsylate Allergy Rash/Hives Verified 09/13/19 06:11 [From Darvocet-N 100] soy Allergy Anaphylaxis Verified 09/13/19 06:11 Sulfa (Sulfonamide Allergy Rash/Hives Verified 09/13/19 06:11 Antibiotics) tetracycline [Tetracycline] Allergy Rash/Hives Verified 09/13/19 06:11 tioconazole [From Monistat 1] Allergy Rash/Hives Verified 09/13/19 06:11 hemp Allergy Rash/Hives Uncoded 09/13/19 06:11 Review of Systems ROS Statement: Those systems with pertinent positive or pertinent negative responses have been documented in the HPI. ROS Other: All systems not noted in ROS Statement are negative. Past Medical History Past Medical History: GERD/Reflux, GI Bleed, Hypertension, Osteoarthritis (OA), Seizure Disorder, Thyroid Disorder Additional Past Medical History / Comment(s): history of depression, bowel obstruction, colitis History of Any Multi-Drug Resistant Organisms: ESBL Date of last positivie culture/infection: 01/08/18 MDRO Source:: ESBL URINE Past Surgical History: Back Surgery, Cholecystectomy, Heart Catheterization, Hernia Repair, Joint Replacement, Pacemaker, Tonsillectomy Additional Past Surgical History / Comment(s): LAP BAND INSERTED & REMOVED, GASTRIC SLEEVE (2016), GINI TOTAL KNEES, CERVICAL FUSION (2-7), BOWEL RESECTION., INCISIONAL HERNIA'S. STATES SEVERAL HEART CATHS-NO STENTS (DONE AT [facility] & [facility]) COLECTOMY Past Anesthesia/Blood Transfusion Reactions: No Reported Reaction Additional Past Anesthesia/Blood Transfusion Reaction / Comment(s): blood transfusion-no reaction Type of Cardiac Device: Permanent Pacemaker Device Placement Date:: 10/12/17 Past Psychological History: Anxiety, Depression Smoking Status: Never smoker Past Alcohol Use History: None Reported Past Drug Use History: None Reported - Past Family History Mother Family Medical History: Pulmonary Embolus Additional Family Medical History / Comment(s): Multiple TIA's. Father Family Medical History: Cancer Additional Family Medical History / Comment(s): Lung Sister(s) Family Medical History: Cancer Additional Family Medical History / Comment(s): OVARIAN CANCER General Exam Limitations: no limitations General appearance: alert, in no apparent distress Head exam: Present: atraumatic, normocephalic, normal inspection Eye exam: Present: normal appearance, PERRL, EOMI. Absent: scleral icterus, conjunctival injection, periorbital swelling ENT exam: Present: normal exam, mucous membranes moist Neck exam: Present: normal inspection. Absent: tenderness, meningismus, lymphadenopathy Respiratory exam: Present: normal lung sounds bilaterally. Absent: respiratory distress, wheezes, rales, rhonchi, stridor Cardiovascular Exam: Present: regular rate, normal rhythm, normal heart sounds. Absent: systolic murmur, diastolic murmur, rubs, gallop, clicks Extremities exam: Present: normal inspection, full ROM, normal capillary refill. Absent: tenderness, pedal edema, joint swelling, calf tenderness Neurological exam: Present: alert, oriented X3, CN II-XII intact Psychiatric exam: Present: normal affect, normal mood Skin exam: Present: warm, dry, intact, normal color. Absent: rash Course Vital Signs 09/13/19 06:05 Temperature 97.8 F Pulse Rate 53 L Respiratory 18 Rate Blood Pressure 145/74 O2 Sat by Pulse 98 Oximetry EKG Findings - EKG Comments: EKG Findings:: EKG performed at 6:21 cm bradycardia rate of 52 MT 200 QRS 88 QT/QTC 466/433 Medical Decision Making - Medical Decision Making I did review procedure note for pacemaker which stated the pacemaker was set at a rate of 50, patient's had multiple EKGs that have been bradycardic since. Patient's x-ray shows stable placement of pacemaker with no major changes, leads in appropriate. Patient will be discharged in stable condition. Disposition Clinical Impression: Pacemaker complications Disposition: HOME SELF-CARE Condition: Stable Instructions (If sedation given, give patient instructions): Pacemaker (DC) Additional Instructions: Please return to the Emergency Department if symptoms worsen or any other concerns. Is patient prescribed a controlled substance at d/c from ED?: No Referrals: Cade Menendez DO [Primary Care Provider] - 1-2 days Time of Disposition: 07:13
[2019-09-13 07:34] VITALS: BP 130/69; PULSE 51; RESP 20
== END 2019-09-13 07:34 | disposition home or self-care (01) ==
LOC: EC 05:51
DX: T82.9XXA Unspecified complication of cardiac and vascular prosthetic device, implant and graft, initial encounter (principal); R00.1 Bradycardia, unspecified; I10 Essential (primary) hypertension; E07.9 Disorder of thyroid, unspecified; K21.9 Gastro-esophageal reflux disease without esophagitis; F41.8 Other specified anxiety disorders; G40.909 Epilepsy, unspecified, not intractable, without status epilepticus; Z79.02 Long term (current) use of antithrombotics/antiplatelets; Z79.890 Hormone replacement therapy; Z79.51 Long term (current) use of inhaled steroids; Z79.899 Other long term (current) drug therapy; Z88.1 Allergy status to other antibiotic agents; Z88.5 Allergy status to narcotic agent; Z88.8 Allergy status to other drugs, medicaments and biological substances; Z91.018 Allergy to other foods; Z88.2 Allergy status to sulfonamides; Z88.3 Allergy status to other anti-infective agents; Z88.9 Allergy status to unspecified drugs, medicaments and biological substances; Z95.0 Presence of cardiac pacemaker; Z98.1 Arthrodesis status
CPT/HCPCS: 71046; 93005; 99284

== ENCOUNTER 2019-09-14 08:30 | Emergency (ER) | payer MEDICARE, OTHER ==
--- NOTE | 2019-09-14 08:52 | ED ---
General Adult HPI - General Chief complaint: Extremity Injury, Lower Stated complaint: lt ankle injury fall Time Seen by Provider: 09/14/19 08:41 Source: patient, RN notes reviewed, old records reviewed Mode of arrival: wheelchair Limitations: no limitations - History of Present Illness Initial comments: 69-year-old female presents status post fall with left ankle pain. Patient fell while chasing her dog. She internally rotated her left ankle and had severe pain immediately. She was unable to ambulate on the left side. Denies knee or hip pain. Denies any other injury. - Related Data Home Medications Medication Instructions Recorded Confirmed Carvedilol [Coreg] 3.125 mg PO BID 11/11/17 07/26/19 Levothyroxine Sodium [Synthroid] 50 mcg PO DAILY 11/11/17 07/26/19 Meclizine [Antivert] 25 mg PO TID PRN 11/11/17 07/26/19 Omeprazole 20 mg PO BID 11/11/17 07/26/19 Potassium Chloride ER [K-Dur 20] 20 meq PO DAILY 11/11/17 07/26/19 buPROPion XL [Wellbutrin XL] 150 mg PO HS 11/11/17 07/26/19 levETIRAcetam [Keppra] 1,000 mg PO BID 12/11/17 07/26/19 amLODIPine [Norvasc] 5 mg PO DAILY 01/08/18 07/26/19 Citalopram Hydrobromide [CeleXA] 40 mg PO DAILY 06/23/18 07/26/19 LORazepam [Ativan] 0.5 mg PO HS 11/07/18 07/26/19 Zolpidem [Ambien] 10 mg PO HS 11/07/18 07/26/19 Albuterol Inhaler (Mhu) [Ventolin 2 puff INHALATION RT-Q6H PRN 01/21/19 07/26/19 Hfa Inhaler (Mhu)] Baclofen 10 mg PO BID 07/13/19 07/26/19 Ibuprofen [Motrin] 800 mg PO TID 07/13/19 07/26/19 diphenhydrAMINE [Benadryl] 25 mg PO HS PRN 07/13/19 07/26/19 Ferrous Sulfate [Iron (65 MG 325 mg PO DAILY 07/26/19 07/26/19 Elemental)] Previous Rx's Medication Instructions Recorded Ondansetron Odt [Zofran Odt] 4 mg PO Q8HR PRN #10 tab 09/03/19 Allergies Allergy/AdvReac Type Severity Reaction Status Date / Time ciprofloxacin [From Cipro] Allergy Unknown Verified 09/14/19 08:36 ciprofloxacin HCl Allergy Unknown Verified 09/14/19 08:36 [From Cipro] codeine Allergy Rash/Hives Verified 09/14/19 08:36 hydrocodone bitartrate Allergy Rash/Hives Verified 09/14/19 08:36 [From Lortab] hydromorphone [From Dilaudid] Allergy Rash/Hives Verified 09/14/19 08:36 meperidine HCl [From Demerol] Allergy Rash/Hives Verified 09/14/19 08:36 morphine Allergy Rash/Hives Verified 09/14/19 08:36 propoxyphene napsylate Allergy Rash/Hives Verified 09/14/19 08:36 [From Darvocet-N 100] soy Allergy Anaphylaxis Verified 09/14/19 08:36 Sulfa (Sulfonamide Allergy Rash/Hives Verified 09/14/19 08:36 Antibiotics) tetracycline [Tetracycline] Allergy Rash/Hives Verified 09/13/19 06:11 tioconazole [From Monistat 1] Allergy Rash/Hives Verified 09/13/19 06:11 hemp Allergy Rash/Hives Uncoded 09/13/19 06:11 Review of Systems ROS Statement: Those systems with pertinent positive or pertinent negative responses have been documented in the HPI. ROS Other: All systems not noted in ROS Statement are negative. Past Medical History Past Medical History: GERD/Reflux, GI Bleed, Hypertension, Osteoarthritis (OA), Seizure Disorder, Thyroid Disorder Additional Past Medical History / Comment(s): history of depression, bowel obstruction, colitis History of Any Multi-Drug Resistant Organisms: ESBL Date of last positivie culture/infection: 01/08/18 MDRO Source:: ESBL URINE Past Surgical History: Back Surgery, Cholecystectomy, Heart Catheterization, Hernia Repair, Joint Replacement, Pacemaker, Tonsillectomy Additional Past Surgical History / Comment(s): LAP BAND INSERTED & REMOVED, GASTRIC SLEEVE (2016), GINI TOTAL KNEES, CERVICAL FUSION (2-7), BOWEL RESECTION., INCISIONAL HERNIA'S. STATES SEVERAL HEART CATHS-NO STENTS (DONE AT [facility] & [facility]) COLECTOMY Past Anesthesia/Blood Transfusion Reactions: No Reported Reaction Additional Past Anesthesia/Blood Transfusion Reaction / Comment(s): blood transfusion-no reaction Type of Cardiac Device: Permanent Pacemaker Device Placement Date:: 10/12/17 Past Psychological History: Anxiety, Depression Smoking Status: Never smoker Past Alcohol Use History: None Reported Past Drug Use History: None Reported - Past Family History Mother Family Medical History: Pulmonary Embolus Additional Family Medical History / Comment(s): Multiple TIA's. Father Family Medical History: Cancer Additional Family Medical History / Comment(s): Lung Sister(s) Family Medical History: Cancer Additional Family Medical History / Comment(s): OVARIAN CANCER General Exam Limitations: no limitations General appearance: alert, in no apparent distress Head exam: Present: atraumatic, normocephalic Eye exam: Present: normal appearance, PERRL ENT exam: Present: normal exam Neck exam: Present: normal inspection. Absent: tenderness, meningismus Respiratory exam: Present: normal lung sounds bilaterally. Absent: respiratory distress, wheezes Cardiovascular Exam: Present: regular rate, normal rhythm GI/Abdominal exam: Present: soft. Absent: distended, tenderness, guarding Extremities exam: Present: tenderness, joint swelling. Absent: full ROM (Significant swelling and pain on the lateral malleolus left ankle, DP pulses intact, normal cap refill, normal sensation. ) Neurological exam: Present: alert, oriented X3, CN II-XII intact. Absent: motor sensory deficit Psychiatric exam: Present: normal affect, normal mood Skin exam: Present: warm, dry, intact. Absent: cyanosis, diaphoretic Course Vital Signs 09/14/19 08:31 Temperature 97.6 F Pulse Rate 57 L Respiratory 18 Rate Blood Pressure 125/72 O2 Sat by Pulse 99 Oximetry Procedures - Orthopedic Splinting/Casting Injury #1 Side: left Lower Extremity Injury Location: ankle Lower Extremity Immobilizer: stirrup splint Other Orthopedic Equipment: other (Wheelchair) Additional Comments: Neurovascularly intact Medical Decision Making - Medical Decision Making 69-year-old female with mechanical fall, left ankle pain. She has a distal fibular fracture on x-ray. She is placed in a splint and given orthopedic follow-up. She has a wheelchair at home and will be nonweightbearing. Disposition Clinical Impression: Left fibular fracture Disposition: HOME SELF-CARE Condition: Fair Instructions (If sedation given, give patient instructions): Ankle Fracture (ED) Is patient prescribed a controlled substance at d/c from ED?: No Referrals: Cade Menendez DO [Primary Care Provider] - 1-2 days Donell Leigh MD [Medical Doctor] - 1-2 days Time of Disposition: 09:33
--- NOTE | 2019-09-14 09:02 | XR ---
EXAMINATION TYPE: XR ankle complete LT DATE OF EXAM: 09/14/2019 CLINICAL HISTORY: Fall with left ankle pain and swelling TECHNIQUE: Frontal, lateral and oblique images of the left ankle are obtained. COMPARISON: None. FINDINGS: There is an acute, minimally displaced, noncomminuted, transversely oriented fracture of th e distal fibula. Ankle mortise maintains normal alignment. Soft tissue swelling is seen about the ank le. No additional acute fracture seen. Moderate plantar heel spur. Minimal degenerative change of the dorsal midfoot demonstrated as osteophytes. IMPRESSION: Acute, minimally displaced, transversely oriented, noncomminuted distal fibular fracture (fibular tip) with overlying soft tissue swelling.
[2019-09-14 10:07] VITALS: BP 145/65; PULSE 62; RESP 20; TEMP 98.2
== END 2019-09-14 10:00 | disposition home or self-care (01) ==
LOC: EC 08:30
DX: S82.832A Other fracture of upper and lower end of left fibula, initial encounter for closed fracture (principal); K21.9 Gastro-esophageal reflux disease without esophagitis; I10 Essential (primary) hypertension; E07.9 Disorder of thyroid, unspecified; G40.909 Epilepsy, unspecified, not intractable, without status epilepticus; F41.9 Anxiety disorder, unspecified; F32.9 Major depressive disorder, single episode, unspecified; Z79.02 Long term (current) use of antithrombotics/antiplatelets; Z79.890 Hormone replacement therapy; Z79.899 Other long term (current) drug therapy; Z88.1 Allergy status to other antibiotic agents; Z88.5 Allergy status to narcotic agent; Z88.8 Allergy status to other drugs, medicaments and biological substances; Z88.2 Allergy status to sulfonamides; Z91.018 Allergy to other foods; Z95.0 Presence of cardiac pacemaker; Z98.84 Bariatric surgery status; W19.XXXA Unspecified fall, initial encounter
CPT/HCPCS: 29515; 99284

== ENCOUNTER 2019-12-29 12:37 | Emergency (ER) | payer MEDICARE ==
[2019-12-29 12:45] VITALS: BP 117/86; PULSE 66; RESP 18; TEMP 97.7
[2019-12-29] MEDS ORDERED: SODIUM CHLORIDE 0.9% 1,000 ML IV STA ×2 (13:08)
[2019-12-29] MEDS ORDERED: KETOROLAC 15 MG/ML 1 ML VIAL IVP STA (13:08)
--- NOTE | 2019-12-29 13:13 | ED ---
Abdominal Pain HPI - General Chief Complaint: Abdominal Pain Stated Complaint: Abdominal Pain Time Seen by Provider: 12/29/19 12:56 Source: patient, RN notes reviewed Mode of arrival: ambulatory Limitations: no limitations - History of Present Illness Initial Comments: This is a 69-year-old female history of appendectomy and cholecystectomy as well as diverticulitis in the past who states she had the onset this morning of severe crampy 10/10 abdominal pain mostly over the upper abdomen. She has some nausea some vomiting she's had diarrhea today also. No overt fevers or sweats she has had some chills she states she has any cough or phlegm production palpitations chest pain no dysuria no hematuria. No prior history kidney stones. No other modifying factors at this time she does state that the pain is worse with movement. MD Complaint: abdominal pain - Related Data Home Medications Medication Instructions Recorded Confirmed Levothyroxine Sodium [Synthroid] 50 mcg PO DAILY 11/11/17 09/14/19 Meclizine [Antivert] 25 mg PO TID PRN 11/11/17 09/14/19 Omeprazole 20 mg PO BID 11/11/17 09/14/19 Potassium Chloride ER [K-Dur 20] 20 meq PO DAILY 11/11/17 09/14/19 buPROPion XL [Wellbutrin XL] 150 mg PO HS 11/11/17 09/14/19 carvediloL [Coreg] 3.125 mg PO BID 11/11/17 09/14/19 levETIRAcetam [Keppra] 1,000 mg PO BID 12/11/17 09/14/19 amLODIPine [Norvasc] 5 mg PO DAILY 01/08/18 09/14/19 Citalopram Hydrobromide [CeleXA] 40 mg PO DAILY 06/23/18 09/14/19 LORazepam [Ativan] 0.5 mg PO HS 11/07/18 09/14/19 Zolpidem [Ambien] 10 mg PO HS 11/07/18 09/14/19 Albuterol Inhaler (Mhu) [Ventolin 2 puff INHALATION RT-Q6H PRN 01/21/19 09/14/19 Hfa Inhaler (Mhu)] Baclofen 10 mg PO BID 07/13/19 09/14/19 Ibuprofen [Motrin] 800 mg PO TID 07/13/19 09/14/19 diphenhydrAMINE [Benadryl] 25 mg PO HS PRN 07/13/19 09/14/19 Ferrous Sulfate [Iron (65 MG 325 mg PO DAILY 07/26/19 09/14/19 Elemental)] Previous Rx's Medication Instructions Recorded Ondansetron Odt [Zofran Odt] 4 mg PO Q8HR PRN #10 tab 09/03/19 Dicyclomine [Bentyl] 10 mg PO TID #12 capsule 12/29/19 Allergies Allergy/AdvReac Type Severity Reaction Status Date / Time ciprofloxacin [From Cipro] Allergy Unknown Verified 12/29/19 12:43 ciprofloxacin HCl Allergy Unknown Verified 12/29/19 12:43 [From Cipro] codeine Allergy Rash/Hives Verified 12/29/19 12:43 hydrocodone bitartrate Allergy Rash/Hives Verified 12/29/19 12:43 [From Lortab] hydromorphone [From Dilaudid] Allergy Rash/Hives Verified 12/29/19 12:43 meperidine HCl [From Demerol] Allergy Rash/Hives Verified 12/29/19 12:43 morphine Allergy Rash/Hives Verified 12/29/19 12:43 propoxyphene napsylate Allergy Rash/Hives Verified 12/29/19 12:43 [From Darvocet-N 100] soy Allergy Anaphylaxis Verified 12/29/19 12:43 Sulfa (Sulfonamide Allergy Rash/Hives Verified 12/29/19 12:43 Antibiotics) tetracycline [Tetracycline] Allergy Rash/Hives Verified 12/29/19 12:43 tioconazole [From Monistat 1] Allergy Rash/Hives Verified 12/29/19 12:43 hemp Allergy Rash/Hives Uncoded 09/13/19 06:11 Review of Systems ROS Statement: Those systems with pertinent positive or pertinent negative responses have been documented in the HPI. ROS Other: All systems not noted in ROS Statement are negative. Past Medical History Past Medical History: GERD/Reflux, GI Bleed, Hypertension, Osteoarthritis (OA), Seizure Disorder, Thyroid Disorder Additional Past Medical History / Comment(s): history of depression, bowel obstruction, colitis History of Any Multi-Drug Resistant Organisms: ESBL Date of last positivie culture/infection: 01/08/18 MDRO Source:: ESBL URINE Past Surgical History: Appendectomy, Back Surgery, Cholecystectomy, Heart Catheterization, Hernia Repair, Joint Replacement, Pacemaker, Tonsillectomy Additional Past Surgical History / Comment(s): LAP BAND INSERTED & REMOVED, GASTRIC SLEEVE (2016), GINI TOTAL KNEES, CERVICAL FUSION (2-7), BOWEL RESECTION., INCISIONAL HERNIA'S. STATES SEVERAL HEART CATHS-NO STENTS (DONE AT [facility] & [facility]) COLECTOMY Past Anesthesia/Blood Transfusion Reactions: No Reported Reaction Additional Past Anesthesia/Blood Transfusion Reaction / Comment(s): blood transfusion-no reaction Type of Cardiac Device: Permanent Pacemaker Device Placement Date:: 10/12/17 Past Psychological History: Anxiety, Depression Smoking Status: Never smoker Past Alcohol Use History: None Reported Past Drug Use History: None Reported - Past Family History Mother Family Medical History: Pulmonary Embolus Additional Family Medical History / Comment(s): Multiple TIA's. Father Family Medical History: Cancer Additional Family Medical History / Comment(s): Lung Sister(s) Family Medical History: Cancer Additional Family Medical History / Comment(s): OVARIAN CANCER General Exam - General Exam Comments Initial Comments: This is a well-developed well-nourished awake alert oriented 3 female Limitations: no limitations General appearance: alert, anxious, in distress Head exam: Present: atraumatic, normocephalic, normal inspection Eye exam: Present: normal appearance, PERRL, EOMI. Absent: scleral icterus, conjunctival injection, periorbital swelling ENT exam: Present: normal exam, mucous membranes moist Neck exam: Present: normal inspection. Absent: tenderness, meningismus, lymphadenopathy Respiratory exam: Present: normal lung sounds bilaterally. Absent: respiratory distress, wheezes, rales, rhonchi, stridor Cardiovascular Exam: Present: regular rate, normal rhythm, normal heart sounds. Absent: systolic murmur, diastolic murmur, rubs, gallop, clicks GI/Abdominal exam: Present: soft, tenderness, normal bowel sounds. Absent: distended, guarding, rebound, rigid, bruit, pulsatile mass (Tenderness mostly over the upper abdomen no overt guarding at this time or rebound) Rectal exam: Present: deferred Extremities exam: Present: normal inspection, full ROM, normal capillary refill. Absent: tenderness, pedal edema, joint swelling, calf tenderness Back exam: Present: normal inspection Neurological exam: Present: alert, oriented X3, CN II-XII intact Psychiatric exam: Present: normal affect, normal mood Skin exam: Present: warm, dry, intact, normal color. Absent: rash Course Vital Signs 12/29/19 12:43 Temperature 97.7 F Pulse Rate 66 Respiratory 18 Rate Blood Pressure 117/86 O2 Sat by Pulse 98 Oximetry Medical Decision Making - Medical Decision Making Reevaluation patient finds that she is feeling much improved at this time patient will be discharged she is follow-up with her doctor return when necessary - Lab Data Result diagrams: 12/29/19 13:12 12/29/19 13:12 Lab Results 12/29/19 12/29/19 12/29/19 Range/Units 13:12 13:12 13:12 WBC 5.0 (3.8-10.6) k/uL RBC 5.35 (3.80-5.40) m/uL Hgb 13.1 (11.4-16.0) gm/dL Hct 42.8 (34.0-46.0) % MCV 80.1 (80.0-100.0) fL MCH 24.5 L (25.0-35.0) pg MCHC 30.6 L (31.0-37.0) g/dL RDW 15.8 H (11.5-15.5) % Plt Count 332 (150-450) k/uL Neutrophils % 48 % Lymphocytes % 36 % Monocytes % 6 % Eosinophils % 6 % Basophils % 2 % Neutrophils # 2.4 (1.3-7.7) k/uL Lymphocytes # 1.8 (1.0-4.8) k/uL Monocytes # 0.3 (0-1.0) k/uL Eosinophils # 0.3 (0-0.7) k/uL Basophils # 0.1 (0-0.2) k/uL Sodium 140 (137-145) mmol/L Potassium 4.2 (3.5-5.1) mmol/L Chloride 109 H (98-107) mmol/L Carbon Dioxide 25 (22-30) mmol/L Anion Gap 6 mmol/L BUN 9 (7-17) mg/dL Creatinine 0.80 (0.52-1.04) mg/dL Est GFR (CKD-EPI)AfAm 87 (>60 ml/min/1.73 sqM) Est GFR (CKD-EPI)NonAf 75 (>60 ml/min/1.73 sqM) Glucose 93 (74-99) mg/dL Plasma Lactic Acid Jamil (0.7-2.0) mmol/L Calcium 9.1 (8.4-10.2) mg/dL Total Bilirubin 0.9 (0.2-1.3) mg/dL AST 23 (14-36) U/L ALT 13 (4-34) U/L Alkaline Phosphatase 123 (38-126) U/L Creatine Kinase 30 (30-135) U/L Troponin I (0.000-0.034) ng/mL Total Protein 7.0 (6.3-8.2) g/dL Albumin 4.1 (3.5-5.0) g/dL Amylase 51 (30-110) U/L Lipase 81 (23-300) U/L Urine Color Light Yellow Urine Appearance Clear (Clear) Urine pH 6.5 (5.0-8.0) Ur Specific [place] 1.013 (1.001-1.035) Urine Protein Negative (Negative) Urine Glucose (UA) Negative (Negative) Urine Ketones Negative (Negative) Urine Blood Negative (Negative) Urine Nitrite Negative (Negative) Urine Bilirubin Negative (Negative) Urine Urobilinogen <2.0 (<2.0) mg/dL Ur Leukocyte Esterase Negative (Negative) Blood Type Blood Type Recheck Bld Type Recheck Status Antibody Screen Spec Expiration Date 12/29/19 12/29/19 12/29/19 Range/Units 13:12 13:12 13:12 WBC (3.8-10.6) k/uL RBC (3.80-5.40) m/uL Hgb (11.4-16.0) gm/dL Hct (34.0-46.0) % MCV (80.0-100.0) fL MCH (25.0-35.0) pg MCHC (31.0-37.0) g/dL RDW (11.5-15.5) % Plt Count (150-450) k/uL Neutrophils % % Lymphocytes % % Monocytes % % Eosinophils % % Basophils % % Neutrophils # (1.3-7.7) k/uL Lymphocytes # (1.0-4.8) k/uL Monocytes # (0-1.0) k/uL Eosinophils # (0-0.7) k/uL Basophils # (0-0.2) k/uL Sodium (137-145) mmol/L Potassium (3.5-5.1) mmol/L Chloride (98-107) mmol/L Carbon Dioxide (22-30) mmol/L Anion Gap mmol/L BUN (7-17) mg/dL Creatinine (0.52-1.04) mg/dL Est GFR (CKD-EPI)AfAm (>60 ml/min/1.73 sqM) Est GFR (CKD-EPI)NonAf (>60 ml/min/1.73 sqM) Glucose (74-99) mg/dL Plasma Lactic Acid Jamil 1.0 (0.7-2.0) mmol/L Calcium (8.4-10.2) mg/dL Total Bilirubin (0.2-1.3) mg/dL AST (14-36) U/L ALT (4-34) U/L Alkaline Phosphatase (38-126) U/L Creatine Kinase (30-135) U/L Troponin I <0.012 (0.000-0.034) ng/mL Total Protein (6.3-8.2) g/dL Albumin (3.5-5.0) g/dL Amylase (30-110) U/L Lipase (23-300) U/L Urine Color Urine Appearance (Clear) Urine pH (5.0-8.0) Ur Specific [place] (1.001-1.035) Urine Protein (Negative) Urine Glucose (UA) (Negative) Urine Ketones (Negative) Urine Blood (Negative) Urine Nitrite (Negative) Urine Bilirubin (Negative) Urine Urobilinogen (<2.0) mg/dL Ur Leukocyte Esterase (Negative) Blood Type O Positive Blood Type Recheck O Pos Bld Type Recheck Status No Antibody Screen NEGATIVE Spec Expiration Date 01/01/2020 - 2311 - Radiology Data Radiology results: report reviewed (I did review the imaging and report no acute findings.), image reviewed Disposition Clinical Impression: Abdominal pain, Spastic colon Disposition: HOME SELF-CARE Condition: Good Instructions (If sedation given, give patient instructions): Abdominal Pain (ED), Irritable Bowel Syndrome (ED) Additional Instructions: Medication prescription sent to Your preferred pharmacy Prescriptions: Dicyclomine [Bentyl] 10 mg PO TID #12 capsule Is patient prescribed a controlled substance at d/c from ED?: No Referrals: Cade Menendez DO [Primary Care Provider] - 1-2 days
[2019-12-29 13:31] LABS: Basophils # (A) 0.1 k/uL (0-0.2); Basophils % (A) 2 %; Eosinophils # (A) 0.3 k/uL (0-0.7); Eosinophils % (A) 6 %; HCT 42.8 % (34.0-46.0); HGB 13.1 gm/dL (11.4-16.0); Lymphocytes # (A) 1.8 k/uL (1.0-4.8); Lymphocytes % (A) 36 %; MCH 24.5 pg (25.0-35.0); MCHC 30.6 g/dL (31.0-37.0); MCV 80.1 fL (80.0-100.0); Mean Platelet Volume 7.2; Monocytes # (A) 0.3 k/uL (0-1.0); Monocytes % (A) 6 %; Neutrophils # (A) 2.4 k/uL (1.3-7.7); Neutrophils % (A) 48 %; Platelet Count 332 k/uL (150-450); RBC 5.35 m/uL (3.80-5.40); RDW 15.8 % (11.5-15.5)
[2019-12-29 13:34] LABS: Appearance,Urine Clear (Clear); Bilirubin,Urine Negative (Negative); Blood,Urine Negative (Negative); Color,Urine Light Yellow; Glucose,Urine (UA) Negative (Negative); Ketones,Urine Negative (Negative); Leukocyte Esterase,Urine Negative (Negative); Nitrite,Urine Negative (Negative); PH, Urine 6.5 (5.0-8.0); Protein,Urine Negative (Negative); Specific Gravity,Urine 1.013 (1.001-1.035); Urobilinogen,Urine <2.0 mg/dL (<2.0)
[2019-12-29 13:45] LABS: Albumin 4.1 g/dL (3.5-5.0); Calcium 9.1 mg/dL (8.4-10.2); Potassium 4.2 mmol/L (3.5-5.1); Total Bilirubin 0.9 mg/dL (0.2-1.3)
--- NOTE | 2019-12-29 14:58 | CT ---
EXAMINATION TYPE: CT abdomen pelvis w con DATE OF EXAM: 12/29/2019 COMPARISON: 07/26/2019 HISTORY: Pelvic pain. CT DLP: 1072.8 mGycm Automated exposure control for dose reduction was used. CONTRAST: CT scan of the abdomen pelvis is performed with IV Contrast, patient injected with 100 mL of Isovue 3 00. FINDINGS- LUNG BASES- No significant abnormality is appreciated. LIVER/GB- No gross abnormality is appreciated. PANCREAS- No gross abnormality is seen. SPLEEN- No gross abnormality is seen. ADRENALS- No gross abnormality is seen. KIDNEYS/BLADDER- no hydronephrosis nephrolithiasis or renal mass. BOWEL-postsurgical changes are noted correlate for previous gastric surgery. Bowel gas pattern nonspe cific. No obstruction. Small hiatal hernia noted. A postsurgical change involving the distal colon al so suggested. Correlate clinically. LYMPH NODES- No greater than 1cm abdominal or pelvic lymph nodes areappreciated. OSSEOUS STRUCTURES- No significant abnormality is seen. OTHER- aorta of normal caliber. IMPRESSION- 1. No acute process.
== END 2019-12-29 16:03 | disposition home or self-care (01) ==
LOC: EC 12:37
DX: K58.9 Irritable bowel syndrome, unspecified (principal); F32.9 Major depressive disorder, single episode, unspecified; F41.9 Anxiety disorder, unspecified; I10 Essential (primary) hypertension; M19.90 Unspecified osteoarthritis, unspecified site; E07.9 Disorder of thyroid, unspecified; G40.909 Epilepsy, unspecified, not intractable, without status epilepticus; Z79.1 Long term (current) use of non-steroidal anti-inflammatories (NSAID); Z79.890 Hormone replacement therapy; Z79.899 Other long term (current) drug therapy; Z88.1 Allergy status to other antibiotic agents; Z88.2 Allergy status to sulfonamides; Z88.5 Allergy status to narcotic agent; Z88.8 Allergy status to other drugs, medicaments and biological substances; Z90.49 Acquired absence of other specified parts of digestive tract; Z95.5 Presence of coronary angioplasty implant and graft; Z95.0 Presence of cardiac pacemaker; Z98.1 Arthrodesis status; Z96.653 Presence of artificial knee joint, bilateral
CPT/HCPCS: 36415; 86900; 86901; 80053; 82150; 82550; 83605; 83690; 84484; 85025; 86850; 81003; 74177; 99284; 96374; 96361; J1885; Q9967

== ENCOUNTER → 2020-01-28 | Outpatient (CLI) | payer MEDICARE ==
--- NOTE | 2020-01-28 13:29 | XR ---
EXAMINATION TYPE: XR chest 2V DATE OF EXAM: 01/28/2020 COMPARISON: Chest x-ray September 13, 2019. CT May 03, 2019 HISTORY: Presurgical study. TECHNIQUE: Frontal and lateral views of the chest are obtained. FINDINGS: Mild underlying emphysematous change redemonstrated. There is no focal air space opacity, p leural effusion, or pneumothorax seen. The cardiac silhouette size remains within normal limits. Red emonstration of dual-lead pacemaker with somewhat low positioning of the battery device unchanged fro m most recent x-ray. Anterior fusion plate lower cervical spine partially imaged on current study. IMPRESSION: No acute cardiopulmonary process. No significant change from most recent x-ray.
[2020-01-28 14:20] LABS: Anisocytosis Slight; Basophils # (A) 0.1 k/uL (0-0.2); Basophils % (A) 1 %; Eosinophils # (A) 0.2 k/uL (0-0.7); Eosinophils % (A) 4 %; HCT 40.9 % (34.0-46.0); HGB 12.9 gm/dL (11.4-16.0); Hypochromasia Slight; Lymphocytes % (A) 31 %; MCH 26.7 pg (25.0-35.0); MCHC 31.5 g/dL (31.0-37.0); MCV 84.7 fL (80.0-100.0); Mean Platelet Volume 7.5; Monocytes # (A) 0.4 k/uL (0-1.0); Monocytes % (A) 6 %; Neutrophils # (A) 3.6 k/uL (1.3-7.7); Neutrophils % (A) 56 %; Platelet Count 316 k/uL (150-450); RBC 4.84 m/uL (3.80-5.40); RDW 16.6 % (11.5-15.5); WBC 6.4 k/uL (3.8-10.6)
[2020-01-28 14:30] LABS: Appearance,Urine Clear (Clear); Bilirubin,Urine Negative (Negative); Blood,Urine Negative (Negative); Color,Urine Yellow; Glucose,Urine (UA) Negative (Negative); Ketones,Urine Negative (Negative); Leukocyte Esterase,Urine Negative (Negative); Nitrite,Urine Negative (Negative); PH, Urine 5.5 (5.0-8.0); Protein,Urine Negative (Negative); Specific Gravity,Urine 1.016 (1.001-1.035); Urobilinogen,Urine <2.0 mg/dL (<2.0)
[2020-01-28 14:32] LABS: Albumin 4.2 g/dL (3.5-5.0); Calcium 9.4 mg/dL (8.4-10.2); Potassium 4.5 mmol/L (3.5-5.1); Total Bilirubin 0.8 mg/dL (0.2-1.3); Total Protein 7.2 g/dL (6.3-8.2)
[2020-01-28 14:33] LABS: INR 0.9 (<1.2); Partial Thromboplastin Time 24.4 sec (22.0-30.0); Prothrombin Time 9.7 sec (9.0-12.0)
== END | disposition home or self-care (01) ==
LOC: RADXRMAIN 13:01
PROVIDERS: ATTEND Orthopaedic Surgery Orthopaedic Surgery of the Spine
DX: Z01.818 Encounter for other preprocedural examination (principal); M50.11 Cervical disc disorder with radiculopathy, high cervical region; M48.02 Spinal stenosis, cervical region
CPT/HCPCS: 36415; 71046; 80053; 81003; 85025; 85610; 85730; 86850; 86900; 86901; 93005

== ENCOUNTER 2020-02-02 10:24 | Day surgery (SDC) | payer MEDICARE, OTHER ==
[2020-01-28 11:52] VITALS: BMI 31.2
[~2020-02-02 10:24] MED LIST changes: +DEXAMETHASONE SOD PHOSPHATE 10 MG/ML 1 ML VIAL IV ONE; -LACTATED RINGERS 1,000 ML IV SCH; +LIDOCAINE 1% (10MG/ML) FOR IV START INTRADERMA PRN; +ceFAZolin 1,000 MG in SODIUM CHLORIDE 0.9% IRRIGATIO 1,000 ML IRRIGATION ONE
[2020-02-02] MEDS: ONDANSETRON 4 MG/2 ML VIAL IVP ONE ×3 (11:20→17:49)
[2020-02-02] MEDS ORDERED: FAMOTIDINE 20 MG/2 ML VIAL IVP ONE (11:20)
[2020-02-02] MEDS: LACTATED RINGERS 1,000 ML IV SCH ×2 (11:20→14:39)
[2020-02-02] MEDS ORDERED: ePHEDrine SULFATE/0.9% NACL/PF 50 MG/5 ML SYRINGE IV ONE (14:35)
[2020-02-02] MEDS ORDERED: fentaNYL (PF) 50 MCG/ML 2 ML AMP ONE (14:35)
[2020-02-02] MEDS ORDERED: PROPOFOL 10 MG/ML 20 ML VIAL IV ONE (14:35)
[2020-02-02] MEDS ORDERED: LIDOCAINE 1% INJ 10MG/ML (20 ML MDV) ONE (14:35)
[2020-02-02] MEDS ORDERED: SUCCINYLCHOLINE CHLORIDE 100 MG/5 ML SYR IV ONE (14:35)
[2020-02-02] MEDS ORDERED: MIDAZOLAM 2 MG/2 ML VIAL ONE (14:35)
[2020-02-02] MEDS ORDERED: LIDOCAINE 1% INJ 10MG/ML (20 ML MDV) SQ ONE ×2 (15:05→15:12)
[2020-02-02] MEDS ORDERED: BUPIVACAINE (PF) 0.5% 30 ML VIAL SQ ONE ×2 (15:06→15:12)
[2020-02-02] MEDS ORDERED: GELATIN SPONGE,ABSORB (LARGE) 1 EACH SPONGE TOPICAL ONE (15:08)
[2020-02-02] MEDS ORDERED: THROMBIN (BOVINE) 5,000 UNIT VIAL TOPICAL ONE (15:08)
[2020-02-02] MEDS ORDERED: LACTATED RINGERS 1,000 ML IV ONE (15:30)
--- NOTE | 2020-02-02 16:15 | XR ---
EXAMINATION TYPE: XR cervical spine 1V DATE OF EXAM: 02/02/2020 COMPARISON: NONE HISTORY: Needle placement TECHNIQUE: Crosstable portable lateral view of cervical spine FINDINGS: Localization device is noted at the C3-4 disc space level. IMPRESSION: As above
--- NOTE | 2020-02-02 16:16 | XR ---
EXAMINATION TYPE: XR cervical spine 1V DATE OF EXAM: 02/02/2020 COMPARISON: NONE HISTORY: Hardware placement TECHNIQUE: Crosstable lateral portable view cervical spine FINDINGS: Interval hardware placement at the C3-4 level. Alignment appears anatomic. IMPRESSION: As above
[2020-02-02] MEDS ORDERED: ONDANSETRON 4 MG/2 ML VIAL IVP PRN (16:17)
[2020-02-02] MEDS ORDERED: MECLIZINE 25 MG TAB PO PRN (16:20)
[2020-02-02] MEDS ORDERED: DICYCLOMINE 10 MG CAP PO PRN (16:20)
[2020-02-02] MEDS ORDERED: diphenhydrAMINE 25 MG CAP PO PRN (16:20)
[2020-02-02] MEDS ORDERED: ALBUTEROL NEBULIZED 2.5 MG/3 ML INHALATION PRN (16:20)
--- NOTE | 2020-02-02 16:27 | P.OP ---
Date of Procedure: 02/02/20 Preoperative Diagnosis: Cervical stenosis C3 4, degenerative disc disease C3 4, adjacent level degeneration C3 4 with history of prior fusion C4 through C7, cervical stenosis C3 4, upper extremity radiculopathy, neck pain Postoperative Diagnosis: Same Anesthesia: GETA Pathology: none sent Condition: stable Disposition: PACU Description of Procedure: BRIEF OPERATIVE NOTE Preoperative Diagnosis:Cervical stenosis C3 4, degenerative disc disease C3 4, adjacent level degeneration C3 4 with history of prior fusion C4 through C7, cervical stenosis C3 4, upper extremity radiculopathy, neck pain Postoperative Diagnosis:Cervical stenosis C3 4, degenerative disc disease C3 4, adjacent level degeneration C3 4 with history of prior fusion C4 through C7, cervical stenosis C3 4, upper extremity radiculopathy, neck pain Procedure: Anterior cervical decompression with discectomy and fusion C3 4 Placement of interbody graft C3 4 Findings of stable plate and screws at C4 Surgeon: Dr. Marks Guide Cruise: [place] is present throughout the entire the case persistence during positioning, dissection, exposure, visualization, and all crucial elements of the case as well as closure. Anesthesia: General anesthesia per Dr. Bo Estimated blood loss: Approximately 30 mL Complications: None apparent Components implanted: K2M [place] anterior cervical interbody cage 7 mm with 12 mm screws 3 and 1 mL of bio4 bone graft Disposition: To recovery room in good stable condition. OPERATIVE INDICATIONS The patient has significant issues in their neck and upper extremities over the past year. She has been having worsening over the past several months. She is known to have prior anterior cervical decompression and fusion at C4 through through C7 more than 10 years ago. She had done very well with that procedure is very happy with those results. She did well for many years however over this past year has developed some worsening symptoms. She is found have significant adjacent level degeneration and stenosis at C3 4 with evidence of solid fusion from C4 to C7. We felt that her symptoms stem primarily from the adjacent level degeneration at C3 4.. The patient has been through conservative treatment. We discussed various treatment options including surgery, and the patient wishes to proceed with surgery We discussed the risk, patient's alternatives and benefits of surgery including but not limited to, risk of bleeding risk of infection, risk of need for further surgery, risk of decreased, loss of motion, muscle function, malunion nonunion, hardware failure, nerve damage, paralysis, heart attack, and . OPERATIVE SUMMARY After discussing all the risks, patient alternatives and benefits at length, the patient elected to proceed with surgical intervention, signed informed consent, and presented for their procedure. The patient was seen and examined in the preoperative holding area and the surgical site was marked. The patient was given antibiotics and brought to the operating room. The patient was positioned on the operating room table in a supine position being careful to pad any bony prominences and pressure points. The patient was sedated and intubated by anesthesia in standard fashion. Once the airway and C- spine were stabilized the patient's arms were padded and tucked at her side, with her shoulders gently taped. The head was placed in a donut pad with the neck in good neutral alignment and position. We were careful to maintain the patient's cervical spine and good neutral alignment and position throughout. The patient was prepped and draped in a normal standard fashion. An appropriate timeout and keystone protocol performed. We were able to proceed with the surgery. The local wound area was infiltrated with local anesthetic. An incision was made transversely approximately 2-1/2 cm over the appropriate levels over C4. Dissection was taken down subcutaneously to the level of the platysma which was split in line with its fibers. Dissection was taken with a carotid approach, with the trachea and esophagus medial and the carotid sheath laterally. We dissected down to the anterior surface of the vertebral bodies. Intraoperative x-ray was taken which showed a marker at the appropriate level at C3 4. With the appropriate level positively confirmed, we were able to proceed with discectomy at the appropriate levels of C3 4. All of the operative levels were exposed appropriately. There was severe disc degeneration essentially complete disc height loss at C3 4. The C4 screws and plate was evaluated and found to be stable without any evidence of loosening. I did not explore further down the plate to C7. The patient had all their twitches back, and there was no evidence of recurrent laryngeal issue. The wound was copiously irrigated and suctioned dry as had been done periodically throughout the case. At the appropriate level/levels of C3 4, I established an annulotomy with an 11 blade scalpel. A discectomy was performed with a combination of pituitary rongeurs, curettes, a high-speed bur, and Kerrison rongeurs. There is severe disc height loss and degeneration. The posterior longitudinal ligament was taken down as were any posterior osteophytes. This gave good central and bilateral foraminal decompression. There is no evidence of any dural tear or leak. The endplates were prepared with a high-speed bur. With the endplates in good parallel position, I was able to size for the appropriate size interbody graft. The wound was irrigated and suctioned dry the [place] titanium graft was prepared and malleted into position. It had good alignment and position with the anterior surface flush with the anterior surface of the vertebral bodies. With the grafts intact, I was able to use the drill guide and drilled to establish drill holes 2 at C3 and [address] 12 mm screws in good alignment and position with excellent bony purchase. Screws were placed in good alignment and position with excellent bony purchase. They were seated and tightened appropriately with a torque screwdriver. The construct was checked and found to be stable. Intraoperative x-ray was taken which showed good alignment and position of the implants at the appropriate levels at C3 4 with the old plate from C4 to C7. There was no evidence of any dural tear or leak. Good hemostasis was maintained. The wound was copiously irrigated and suctioned dry as had been done periodically throughout the case. The platysma was closed with absorbable suture. The subcutaneous tissue was closed. The subcuticular tissue was closed with absorbable suture. The wound was cleaned and dried and dressed appropriately. A soft cervical collar was placed appropriately. The patient was woken up by anesthesia, extubated, transferred back gently to their hospital bed and brought to the recovery room in good stable condition. The patient will be admitted to the hospital for appropriate postoperative care, medical management and monitoring. We will continue to follow them closely about the postoperative course.
[2020-02-02] MEDS ORDERED: diphenhydrAMINE 50 MG/ML 1 ML VIAL IVP ONE (17:00)
[2020-02-02] MEDS ORDERED: fentaNYL (PF) 50 MCG/ML 2 ML AMP IVP ONE (17:00)
[2020-02-02] MEDS: SODIUM CHLORIDE 0.9% 1,000 ML IV SCH (17:59)
[2020-02-02] MEDS: levETIRAcetam 500 MG TAB PO SCH (19:35)
[2020-02-02] MEDS: carvediloL 3.125 MG TAB PO SCH (19:35)
[2020-02-02] MEDS: BACLOFEN 10 MG TAB PO SCH (19:35)
[2020-02-02] MEDS: ACETAMINOPHEN TAB 325 MG TAB PO PRN (19:36)
[2020-02-02] MEDS: POTASSIUM CHLORIDE ER 20 MEQ TAB.ER PO SCH (19:36)
[2020-02-02] MEDS ORDERED: LORazepam 0.5 MG TAB PO SCH (21:00)
[2020-02-02] MEDS ORDERED: buPROPion XL 150 MG TAB.ER.24H PO SCH (21:00)
[2020-02-02] MEDS ORDERED: ZOLPIDEM 10 MG TAB PO SCH (21:00)
[2020-02-02] MEDS: BENZOCAINE/MENTHOL LOZENG 1 EACH LOZENGE MUCOUS MEM PRN (21:40)
[2020-02-03] MEDS: BENZOCAINE/MENTHOL LOZENG 1 EACH LOZENGE MUCOUS MEM PRN (04:07)
[2020-02-03] MEDS: ACETAMINOPHEN TAB 325 MG TAB PO PRN (04:07)
[2020-02-03] MEDS: SODIUM CHLORIDE 0.9% 1,000 ML IV SCH (05:07)
[2020-02-03] MEDS: LACTATED RINGERS 1,000 ML IV SCH (05:07)
[2020-02-03] MEDS ORDERED: LEVOTHYROXINE 50 MCG TAB PO SCH (06:30)
[2020-02-03] MEDS ORDERED: PANTOPRAZOLE 40 MG TABLET PO SCH (07:30)
[2020-02-03 08:13] VITALS: BP 109/65; PULSE 58; RESP 16; TEMP 97.6
[2020-02-03] MEDS ORDERED: amLODIPine 5 MG TAB PO SCH (09:00)
[2020-02-03] MEDS ORDERED: CITALOPRAM HYDROBROMIDE 20 MG TAB PO SCH (09:00)
[2020-02-03] MEDS: BACLOFEN 10 MG TAB PO SCH (09:41)
[2020-02-03] MEDS: POTASSIUM CHLORIDE ER 20 MEQ TAB.ER PO SCH (09:41)
[2020-02-03] MEDS: carvediloL 3.125 MG TAB PO SCH (09:41)
[2020-02-03] MEDS: levETIRAcetam 500 MG TAB PO SCH (09:46)
--- NOTE | 2020-02-03 10:37 | P.DS ---
Providers Date of admission: 02/02/2020 Attending physician: Sarah Marks Primary care physician: [facility] Course: The patient presented on the day of admission as per their operative note. She had anterior cervical decompression with discectomy and fusion at C3 4 due to her severe stenosis with degenerative disc disease at his level degeneration. She had a history of prior decompression and fusion C4 5 C5 6 C6 7 which is stable. Patient feels that her arms are doing well. She is tolerating her soft diet. She has been mobile and voiding freely. Physical Exam The incision site is clean dry and intact. There is no erythema no drainage. There is no purulence no evidence of infection. Her neck is soft and supple Abdomen soft and nontender. Chest has good excursion with deep inspiration and expiration. The patient has active and passive range of motion intact at the upper and lower extremities. There is no acute change in neurologic status. She has good motion at her bilateral upper extremities Hospital Course Postoperative day 1 status post anterior cervical decompression with discectomy and fusion C3 4 for her adjacent level degeneration with cervical stenosis at prior fusion at C4 to 7 patient appears to be doing well and making good progress. The patient has been making good progress postoperatively. They have completed the prophylactic antibiotics without any signs or symptoms of infection. The patient has been able to advance their diet, and is tolerating diet adequately. The pain was initially controlled with IV medications and is now controlled appropriately with oral medications. The patient has been able to increase their mobilization. The patient has progressed appropriately. I think they are in good stable condition for discharge today. They will be sent home with appropriate prescriptions. I answered their questions to the best of my ability in a language that they can understand and they are agreeable with the plan. They will follow up as directed in approximately 2 weeks or sooner if she is having any problems. Patient Condition at Discharge: Good Plan - Discharge Summary Discharge Rx Participant: Yes New Discharge Prescriptions: New traMADol HCL [Ultram] 50 mg PO Q6HR PRN 3 Days #12 tab PRN Reason: Pain No Action Potassium Chloride ER [K-Dur 20] 20 meq PO BID Omeprazole 20 mg PO BID Meclizine [Antivert] 25 mg PO TID PRN PRN Reason: Vertigo Levothyroxine Sodium [Synthroid] 50 mcg PO QAM buPROPion XL [Wellbutrin XL] 150 mg PO HS carvediloL [Coreg] 3.125 mg PO BID levETIRAcetam [Keppra] 1,000 mg PO BID amLODIPine [Norvasc] 5 mg PO QAM Citalopram Hydrobromide [CeleXA] 40 mg PO QAM Zolpidem [Ambien] 10 mg PO HS LORazepam [Ativan] 0.5 mg PO HS Albuterol Inhaler (Mhu) [Ventolin Hfa Inhaler (Mhu)] 2 puff INHALATION RT-Q6H PRN PRN Reason: Dyspnea Baclofen 10 mg PO BID Ibuprofen [Motrin] 800 mg PO TID diphenhydrAMINE [Benadryl] 25 mg PO HS PRN PRN Reason: Allergy Symptoms & itching Dicyclomine [Bentyl] 10 mg PO TID PRN PRN Reason: Spasms Discharge Medication List Levothyroxine Sodium [Synthroid] 50 mcg PO QAM 11/11/17 [History] Meclizine [Antivert] 25 mg PO TID PRN 11/11/17 [History] Omeprazole 20 mg PO BID 11/11/17 [History] Potassium Chloride ER [K-Dur 20] 20 meq PO BID 11/11/17 [History] buPROPion XL [Wellbutrin XL] 150 mg PO HS 11/11/17 [History] carvediloL [Coreg] 3.125 mg PO BID 11/11/17 [History] levETIRAcetam [Keppra] 1,000 mg PO BID 12/11/17 [History] amLODIPine [Norvasc] 5 mg PO QAM 01/08/18 [History] Citalopram Hydrobromide [CeleXA] 40 mg PO QAM 06/23/18 [History] LORazepam [Ativan] 0.5 mg PO HS 11/07/18 [History] Zolpidem [Ambien] 10 mg PO HS 11/07/18 [History] Albuterol Inhaler (Mhu) [Ventolin Hfa Inhaler (u)] 2 puff INHALATION RT-Q6H PRN 01/21/19 [History] Baclofen 10 mg PO BID 07/13/19 [History] Ibuprofen [Motrin] 800 mg PO TID 07/13/19 [History] diphenhydrAMINE [Benadryl] 25 mg PO HS PRN 07/13/19 [History] Dicyclomine [Bentyl] 10 mg PO TID PRN 01/28/20 [History] traMADol HCL [Ultram] 50 mg PO Q6HR PRN 3 Days #12 tab 02/02/20 [Rx] Follow up Appointment(s)/Referral(s): Sarah Marks, [Doctor of Osteopathic Medicine] - 02/18/20 10:30 am Patient Instructions/Handouts: *Surgery [facility] - ([facility]) Cervical Surgery Discharge Instructions Activity/Diet/Wound Care/Special Instructions: Keep site clean. May shower with waterproof Tegaderm intact. Do not soak in a tub. After 72 hours postoperatively, patient May remove dressing and then may shower with area uncovered. Leave Steri-Strips intact and allow them to fray off on their own. May ambulate as tolerated. Avoid heavy or rigorous activity. No repetitive bending twisting or lifting. No overhead work.
== END 2020-02-03 11:00 | disposition home or self-care (01) ==
LOC: OR 10:24 → 4SSUR 16:20 → OR 02-03 11:00
PROVIDERS: ATTEND Orthopaedic Surgery Orthopaedic Surgery of the Spine
DX: M50.11 Cervical disc disorder with radiculopathy, high cervical region (principal); M48.02 Spinal stenosis, cervical region; Z98.1 Arthrodesis status; M47.812 Spondylosis without myelopathy or radiculopathy, cervical region; M50.323 Other cervical disc degeneration at C6-C7 level; M43.12 Spondylolisthesis, cervical region; I10 Essential (primary) hypertension; F41.9 Anxiety disorder, unspecified; E07.9 Disorder of thyroid, unspecified; G40.909 Epilepsy, unspecified, not intractable, without status epilepticus; I25.10 Atherosclerotic heart disease of native coronary artery without angina pectoris; E78.5 Hyperlipidemia, unspecified; J45.909 Unspecified asthma, uncomplicated; K21.9 Gastro-esophageal reflux disease without esophagitis; R26.81 Unsteadiness on feet; F32.9 Major depressive disorder, single episode, unspecified; M19.90 Unspecified osteoarthritis, unspecified site; H91.90 Unspecified hearing loss, unspecified ear; Z98.84 Bariatric surgery status; Z96.653 Presence of artificial knee joint, bilateral; Z90.49 Acquired absence of other specified parts of digestive tract; Z95.0 Presence of cardiac pacemaker; Z98.890 Other specified postprocedural states; Z83.3 Family history of diabetes mellitus; Z82.49 Family history of ischemic heart disease and other diseases of the circulatory system; Z79.890 Hormone replacement therapy; Z79.1 Long term (current) use of non-steroidal anti-inflammatories (NSAID); Z79.899 Other long term (current) drug therapy; Z88.1 Allergy status to other antibiotic agents; Z88.5 Allergy status to narcotic agent; Z88.2 Allergy status to sulfonamides
CPT/HCPCS: 86900; 86901; 86850; 72020; 36415; 22551; 22853; 20931; C1713; J1200; J0690 ×3; J2405; J2001; J3010

== ENCOUNTER → 2020-06-30 | Outpatient (CLI) | payer MEDICARE ==
--- NOTE | 2020-06-30 19:12 | CT ---
EXAMINATION TYPE: CT lumbar spine wo con DATE OF EXAM: 06/30/2020 5:19 PM COMPARISON: None HISTORY: Chronic low back pain. CT DLP: 716.6 mGycm Automated exposure control for dose reduction was used. Unenhanced CT of the lumbar spine was performed. Bone and soft tissue window settings are submitted as well as coronal and sagittal reconstructions. There is diffuse osteopenia and there is multilevel moderate degenerative disc disease most marked at L4-L5. No compression deformities. Assessment spinal canal limited due to contrast in a resolution. Suggestion of previous gastric surge ry. Metallic density in the pelvis suggestive of previous surgery. 1 mm nonobstructing upper pole lef t renal calculus. L1-L2: Mild circumferential disc bulging but no canal stenosis. No foraminal encroachment. No obvious disc herniation. L2-L3: Broad-based disc bulging with hypertrophy of the facet joints and ligamentum flavum. Mild mass effect upon the thecal sac and bilateral foraminal encroachment. Borderline canal stenosis. L3-L4: More advanced facet arthropathy with diffuse disc bulging and hypertrophic change and ligament um flavum. Moderate canal stenosis and bilateral foraminal encroachment. L4-L5: A diffuse disc bulging with advanced facet arthropathy. No spondylolysis. 1 to 2 mm anterolist hesis L4 on L5. Moderate canal stenosis and bilateral foraminal encroachment. L5-S1: Advanced facet arthropathy with bilateral foraminal encroachment. No definite canal stenosis. No focal herniation. IMPRESSION: 1. There is multilevel degenerative disc disease and facet arthropathy most marked at L4-5. Multileve l canal stenosis and foraminal encroachment most marked at L4-5 with grade 1 anterolisthesis measurin g 1 to 2 mm. This appears degenerative secondary to facet arthropathy. 2. Nonobstructing punctate left renal calculus.
== END | disposition home or self-care (01) ==
LOC: RADCTMAIN 17:05
PROVIDERS: ATTEND Orthopaedic Surgery Orthopaedic Surgery of the Spine
DX: M48.061 Spinal stenosis, lumbar region without neurogenic claudication (principal); M43.16 Spondylolisthesis, lumbar region; M51.36 Other intervertebral disc degeneration, lumbar region; M47.816 Spondylosis without myelopathy or radiculopathy, lumbar region
CPT/HCPCS: 72131

== ENCOUNTER 2020-09-13 13:56 | Emergency (ER) | payer MEDICARE ==
[2020-09-13 13:59] VITALS: BP 159/82; PULSE 62; RESP 16; TEMP 97.9
[2020-09-13] MEDS ORDERED: KETOROLAC 15 MG/ML 1 ML VIAL IVP STA (14:40)
[2020-09-13] MEDS ORDERED: SODIUM CHLORIDE 0.9% 500 ML 500 ML IV STA (14:40)
[2020-09-13 15:00] LABS: Appearance,Urine Clear (Clear); Basophils % (A) 1 %; Bilirubin,Urine Negative (Negative); Blood,Urine Negative (Negative); Color,Urine Light Yellow; Eosinophils # (A) 0.5 k/uL (0-0.7); Eosinophils % (A) 8 %; Glucose,Urine (UA) Negative (Negative); HCT 36.3 % (34.0-46.0); HGB 11.9 gm/dL (11.4-16.0); Hypochromasia Slight; Ketones,Urine Negative (Negative); Leukocyte Esterase,Urine Negative (Negative); Lymphocytes # (A) 2.2 k/uL (1.0-4.8); Lymphocytes % (A) 41 %; MCH 24.6 pg (25.0-35.0); MCHC 32.8 g/dL (31.0-37.0); MCV 75.1 fL (80.0-100.0); Mean Platelet Volume 7.5; Microcytosis Slight; Monocytes # (A) 0.3 k/uL (0-1.0); Monocytes % (A) 6 %; Neutrophils # (A) 2.3 k/uL (1.3-7.7); Neutrophils % (A) 42 %; Nitrite,Urine Negative (Negative); PH, Urine 5.5 (5.0-8.0); Platelet Count 285 k/uL (150-450); Protein,Urine Negative (Negative); RBC 4.83 m/uL (3.80-5.40); RDW 15.4 % (11.5-15.5); Specific Gravity,Urine 1.013 (1.001-1.035); Urobilinogen,Urine <2.0 mg/dL (<2.0); WBC 5.4 k/uL (3.8-10.6)
[2020-09-13 15:09] LABS: Calcium 9.1 mg/dL (8.4-10.2); Potassium 4.3 mmol/L (3.5-5.1); Total Bilirubin 0.7 mg/dL (0.2-1.3); Total Protein 6.7 g/dL (6.3-8.2)
--- NOTE | 2020-09-13 16:23 | ED ---
General Adult HPI - General Chief complaint: Abdominal Pain Stated complaint: Abdominal Pain Time Seen by Provider: 09/13/20 14:19 Source: patient, RN notes reviewed Mode of arrival: ambulatory Limitations: no limitations - History of Present Illness Initial comments: 70-year-old female with a past medical history of asthma, GERD, hyperlipidemia, hypertension presents to the emergency room for abdominal pain. Patient states abdominal pain has been going on for several months, states since last ER visit in December. States that she was supposed to follow-up with Dr. Yancey but has not done so. Patient states it had been a little but worse in the past few days so presented to the emergency room. Bowel movements are normal. Patient is passing gas. No nausea vomiting. No fevers.Patient has no other complaints at this time including shortness of breath, chest pain, abdominal pain, nausea or vomiting, headache, or visual changes. - Related Data Home Medications Medication Instructions Recorded Confirmed Levothyroxine Sodium [Synthroid] 50 mcg PO QAM 11/11/17 02/02/20 Meclizine [Antivert] 25 mg PO TID PRN 11/11/17 02/02/20 Omeprazole 20 mg PO BID 11/11/17 02/02/20 Potassium Chloride ER [K-Dur 20] 20 meq PO BID 11/11/17 02/02/20 buPROPion XL [Wellbutrin XL] 150 mg PO HS 11/11/17 02/02/20 carvediloL [Coreg] 3.125 mg PO BID 11/11/17 02/02/20 levETIRAcetam [Keppra] 1,000 mg PO BID 12/11/17 02/02/20 amLODIPine [Norvasc] 5 mg PO QAM 01/08/18 02/02/20 Citalopram Hydrobromide [CeleXA] 40 mg PO QAM 06/23/18 02/02/20 LORazepam [Ativan] 0.5 mg PO HS 11/07/18 02/02/20 Zolpidem [Ambien] 10 mg PO HS 11/07/18 02/02/20 Albuterol Inhaler (Mhu) [Ventolin 2 puff INHALATION RT-Q6H PRN 01/21/19 02/02/20 Hfa Inhaler (Mhu)] Baclofen 10 mg PO BID 07/13/19 02/02/20 Ibuprofen [Motrin] 800 mg PO TID 07/13/19 02/02/20 diphenhydrAMINE [Benadryl] 25 mg PO HS PRN 07/13/19 02/02/20 Dicyclomine [Bentyl] 10 mg PO TID PRN 01/28/20 02/02/20 Previous Rx's Medication Instructions Recorded traMADol HCL [Ultram] 50 mg PO Q6HR PRN 3 Days #12 tab 02/02/20 Allergies Allergy/AdvReac Type Severity Reaction Status Date / Time ciprofloxacin [From Cipro] Allergy Unknown Verified 02/02/20 10:40 ciprofloxacin HCl Allergy Unknown Verified 02/02/20 10:40 [From Cipro] codeine Allergy Rash/Hives Verified 02/02/20 10:40 hydrocodone bitartrate Allergy Rash/Hives Verified 02/02/20 10:40 [From Lortab] hydromorphone [From Dilaudid] Allergy Rash/Hives Verified 02/02/20 10:40 meperidine HCl [From Demerol] Allergy Rash/Hives Verified 02/02/20 10:40 morphine Allergy Rash/Hives Verified 02/02/20 10:40 propoxyphene napsylate Allergy Rash/Hives Verified 02/02/20 10:40 [From Darvocet-N 100] soy Allergy Anaphylaxis Verified 02/02/20 10:40 Sulfa (Sulfonamide Allergy Rash/Hives Verified 02/02/20 10:40 Antibiotics) tetracycline [Tetracycline] Allergy Rash/Hives Verified 01/28/20 11:22 tioconazole [From Monistat 1] Allergy Rash/Hives Verified 01/28/20 11:22 hemp Allergy Rash/Hives Uncoded 01/28/20 11:22 Review of Systems ROS Statement: Those systems with pertinent positive or pertinent negative responses have been documented in the HPI. ROS Other: All systems not noted in ROS Statement are negative. Past Medical History Past Medical History: Asthma, Cancer, GERD/Reflux, GI Bleed, Hearing Disorder / Deafness, Hyperlipidemia, Hypertension, Osteoarthritis (OA), Seizure Disorder, Thyroid Disorder Additional Past Medical History / Comment(s): Last seizure over 1 yr ago. Hard of hearing. Hx bilateral breast cancer 20 yrs ago. Hx bowel obstruction, colitis. Exercise Induced Asthma. History of Any Multi-Drug Resistant Organisms: ESBL Date of last positivie culture/infection: 01/08/18 MDRO Source:: ESBL URINE Past Surgical History: Appendectomy, Back Surgery, Bariatric Surgery, Bowel Resection, Breast Surgery, Cholecystectomy, Heart Catheterization, Hernia Repair, Joint Replacement, Pacemaker, Tonsillectomy Additional Past Surgical History / Comment(s): LAP BAND INSERTED & REMOVED, GASTRIC SLEEVE (2016), BILATERAL TOTAL KNEE REPLACEMENTS, CERVICAL FUSION (2-7), BOWEL RESECTION, INCISIONAL HERNIA REPAIR, SEVERAL HEART CATHS-NO STENTS, COLECTOMY, BILATERAL BREAST LUMPECTOMIES. Past Anesthesia/Blood Transfusion Reactions: Previous Problems w/ Anesthesia Additional Past Anesthesia/Blood Transfusion Reaction / Comment(s): Blood transfusion X3 -no reaction. "Low BP with anesthesia if takes BP med AM of surgery." Type of Cardiac Device: Permanent Pacemaker Device Placement Date:: 10/12/17 Past Psychological History: Anxiety, Depression Smoking Status: Never smoker Past Alcohol Use History: None Reported Past Drug Use History: None Reported - Past Family History Mother Family Medical History: Pulmonary Embolus Additional Family Medical History / Comment(s): Multiple TIA's. Father Family Medical History: Cancer Additional Family Medical History / Comment(s): Lung Cancer. Sister(s) Family Medical History: Cancer Additional Family Medical History / Comment(s): OVARIAN CANCER. General Exam Limitations: no limitations General appearance: alert, in no apparent distress Head exam: Present: atraumatic, normocephalic, normal inspection Eye exam: Present: normal appearance, PERRL, EOMI. Absent: scleral icterus, conjunctival injection, periorbital swelling ENT exam: Present: normal exam, mucous membranes moist Neck exam: Present: normal inspection, full ROM. Absent: tenderness, meningismus, lymphadenopathy Respiratory exam: Present: normal lung sounds bilaterally. Absent: respiratory distress, wheezes, rales, rhonchi, stridor Cardiovascular Exam: Present: regular rate, normal rhythm, normal heart sounds. Absent: systolic murmur, diastolic murmur, rubs, gallop, clicks GI/Abdominal exam: Present: soft, normal bowel sounds. Absent: distended, tende rness (No abdominal tenderness on exam), guarding, rebound, rigid Course Vital Signs 09/13/20 13:57 Temperature 97.9 F Pulse Rate 62 Respiratory 16 Rate Blood Pressure 159/82 O2 Sat by Pulse 97 Oximetry Medical Decision Making - Medical Decision Making Vitals are stable. Patient is well appearing. Physical exam does not reveal any abdominal tenderness. CBC is unremarkable. White blood cell count is normal. CMP is normal. Urinalysis does not show any evidence of infection. I did review patient's CAT scan from December of last year when this pain started which was normal. At this time given pain has been chronic since December and improved significantly with Toradol and she has normal labs I am recommended she follow up with Dr. Yancey. It she will return here for any worsening symptoms. - Lab Data Result diagrams: 09/13/20 14:48 09/13/20 00:51 Lab Results 09/13/20 09/13/20 09/13/20 Range/Units 00:51 14:48 14:48 WBC 5.4 (3.8-10.6) k/uL RBC 4.83 (3.80-5.40) m/uL Hgb 11.9 (11.4-16.0) gm/dL Hct 36.3 (34.0-46.0) % MCV 75.1 L (80.0-100.0) fL MCH 24.6 L (25.0-35.0) pg MCHC 32.8 (31.0-37.0) g/dL RDW 15.4 (11.5-15.5) % Plt Count 285 (150-450) k/uL MPV 7.5 Neutrophils % 42 % Lymphocytes % 41 % Monocytes % 6 % Eosinophils % 8 % Basophils % 1 % Neutrophils # 2.3 (1.3-7.7) k/uL Lymphocytes # 2.2 (1.0-4.8) k/uL Monocytes # 0.3 (0-1.0) k/uL Eosinophils # 0.5 (0-0.7) k/uL Basophils # 0.0 (0-0.2) k/uL Hypochromasia Slight Microcytosis Slight Sodium 139 (137-145) mmol/L Potassium 4.3 (3.5-5.1) mmol/L Chloride 110 H (98-107) mmol/L Carbon Dioxide 24 (22-30) mmol/L Anion Gap 5 mmol/L BUN 8 (7-17) mg/dL Creatinine 0.81 (0.52-1.04) mg/dL Est GFR (CKD-EPI)AfAm 85 (>60 ml/min/1.73 sqM) Est GFR (CKD-EPI)NonAf 74 (>60 ml/min/1.73 sqM) Glucose 86 (74-99) mg/dL Plasma Lactic Acid Jamil (0.7-2.0) mmol/L Calcium 9.1 (8.4-10.2) mg/dL Total Bilirubin 0.7 (0.2-1.3) mg/dL AST 23 (14-36) U/L ALT 12 (4-34) U/L Alkaline Phosphatase 120 (38-126) U/L Total Protein 6.7 (6.3-8.2) g/dL Albumin 4.0 (3.5-5.0) g/dL Amylase 58 (30-110) U/L Lipase 87 (23-300) U/L Urine Color Light Yellow Urine Appearance Clear (Clear) Urine pH 5.5 (5.0-8.0) Ur Specific [place] 1.013 (1.001-1.035) Urine Protein Negative (Negative) Urine Glucose (UA) Negative (Negative) Urine Ketones Negative (Negative) Urine Blood Negative (Negative) Urine Nitrite Negative (Negative) Urine Bilirubin Negative (Negative) Urine Urobilinogen <2.0 (<2.0) mg/dL Ur Leukocyte Esterase Negative (Negative) 09/13/20 Range/Units 14:48 WBC (3.8-10.6) k/uL RBC (3.80-5.40) m/uL Hgb (11.4-16.0) gm/dL Hct (34.0-46.0) % MCV (80.0-100.0) fL MCH (25.0-35.0) pg MCHC (31.0-37.0) g/dL RDW (11.5-15.5) % Plt Count (150-450) k/uL MPV Neutrophils % % Lymphocytes % % Monocytes % % Eosinophils % % Basophils % % Neutrophils # (1.3-7.7) k/uL Lymphocytes # (1.0-4.8) k/uL Monocytes # (0-1.0) k/uL Eosinophils # (0-0.7) k/uL Basophils # (0-0.2) k/uL Hypochromasia Microcytosis Sodium (137-145) mmol/L Potassium (3.5-5.1) mmol/L Chloride (98-107) mmol/L Carbon Dioxide (22-30) mmol/L Anion Gap mmol/L BUN (7-17) mg/dL Creatinine (0.52-1.04) mg/dL Est GFR (CKD-EPI)AfAm (>60 ml/min/1.73 sqM) Est GFR (CKD-EPI)NonAf (>60 ml/min/1.73 sqM) Glucose (74-99) mg/dL Plasma Lactic Acid Jamil 0.8 (0.7-2.0) mmol/L Calcium (8.4-10.2) mg/dL Total Bilirubin (0.2-1.3) mg/dL AST (14-36) U/L ALT (4-34) U/L Alkaline Phosphatase (38-126) U/L Total Protein (6.3-8.2) g/dL Albumin (3.5-5.0) g/dL Amylase (30-110) U/L Lipase (23-300) U/L Urine Color Urine Appearance (Clear) Urine pH (5.0-8.0) Ur Specific [place] (1.001-1.035) Urine Protein (Negative) Urine Glucose (UA) (Negative) Urine Ketones (Negative) Urine Blood (Negative) Urine Nitrite (Negative) Urine Bilirubin (Negative) Urine Urobilinogen (<2.0) mg/dL Ur Leukocyte Esterase (Negative) Disposition Clinical Impression: Abdominal pain Disposition: HOME SELF-CARE Condition: Good Instructions (If sedation given, give patient instructions): Abdominal Pain (ED) Additional Instructions: Please follow-up with your doctor in one to 2 days. Return to the emergency room for any worsening symptoms. Is patient prescribed a controlled substance at d/c from ED?: No Referrals: Cade Menendez DO [Primary Care Provider] - 1-2 days Doroteo Yancey MD [STAFF PHYSICIAN] - 1-2 days Time of Disposition: 16:24
== END 2020-09-13 16:35 | disposition home or self-care (01) ==
LOC: EC 13:56
DX: R10.9 Unspecified abdominal pain (principal); E78.5 Hyperlipidemia, unspecified; F32.9 Major depressive disorder, single episode, unspecified; F41.9 Anxiety disorder, unspecified; J45.909 Unspecified asthma, uncomplicated; G40.909 Epilepsy, unspecified, not intractable, without status epilepticus; I10 Essential (primary) hypertension; J45.990 Exercise induced bronchospasm; H91.90 Unspecified hearing loss, unspecified ear; K21.9 Gastro-esophageal reflux disease without esophagitis; M19.90 Unspecified osteoarthritis, unspecified site; Z85.3 Personal history of malignant neoplasm of breast; Z79.899 Other long term (current) drug therapy; Z79.51 Long term (current) use of inhaled steroids; Z79.1 Long term (current) use of non-steroidal anti-inflammatories (NSAID); Z88.1 Allergy status to other antibiotic agents; Z95.0 Presence of cardiac pacemaker
CPT/HCPCS: 36415; 80053; 82150; 83605; 83690; 85025; 81003; 99284; 96374; 96361; J1885

== ENCOUNTER 2020-10-07 16:10 | Emergency (ER) | payer MEDICARE ==
[2020-10-07 16:18] VITALS: TEMP 97.4
[2020-10-07] MEDS ORDERED: KETOROLAC 15 MG/ML 1 ML VIAL IVP STA (16:45)
--- NOTE | 2020-10-07 16:47 | ED ---
Abdominal Pain HPI - General Chief Complaint: Abdominal Pain Stated Complaint: Abd pain Time Seen by Provider: 10/07/20 16:15 Source: patient, RN notes reviewed Mode of arrival: ambulatory Limitations: no limitations - History of Present Illness Initial Comments: This is a 70-year-old female with a history of diverticular disease who states she's had lower abdominal pain mostly in the right and some right upper quadrant pain for the past several days she's had fevers chills sweats nausea vomiting she states it feels similar to her previous episodes of diverticular disease. She's had some loose stools. No cough no phlegm production no other complaints or modifying factors at this time. MD Complaint: abdominal pain - Related Data Home Medications Medication Instructions Recorded Confirmed Levothyroxine Sodium [Synthroid] 50 mcg PO QAM 11/11/17 02/02/20 Meclizine [Antivert] 25 mg PO TID PRN 11/11/17 02/02/20 Omeprazole 20 mg PO BID 11/11/17 02/02/20 Potassium Chloride ER [K-Dur 20] 20 meq PO BID 11/11/17 02/02/20 buPROPion XL [Wellbutrin XL] 150 mg PO HS 11/11/17 02/02/20 carvediloL [Coreg] 3.125 mg PO BID 11/11/17 02/02/20 levETIRAcetam [Keppra] 1,000 mg PO BID 12/11/17 02/02/20 amLODIPine [Norvasc] 5 mg PO QAM 01/08/18 02/02/20 Citalopram Hydrobromide [CeleXA] 40 mg PO QAM 06/23/18 02/02/20 LORazepam [Ativan] 0.5 mg PO HS 11/07/18 02/02/20 Zolpidem [Ambien] 10 mg PO HS 11/07/18 02/02/20 Albuterol Inhaler (Mhu) [Ventolin 2 puff INHALATION RT-Q6H PRN 01/21/19 02/02/20 Hfa Inhaler (Mhu)] Baclofen 10 mg PO BID 07/13/19 02/02/20 Ibuprofen [Motrin] 800 mg PO TID 07/13/19 02/02/20 diphenhydrAMINE [Benadryl] 25 mg PO HS PRN 07/13/19 02/02/20 Dicyclomine [Bentyl] 10 mg PO TID PRN 01/28/20 02/02/20 Previous Rx's Medication Instructions Recorded traMADol HCL [Ultram] 50 mg PO Q6HR PRN 3 Days #12 tab 02/02/20 Allergies Allergy/AdvReac Type Severity Reaction Status Date / Time ciprofloxacin [From Cipro] Allergy Unknown Verified 10/07/20 16:18 ciprofloxacin HCl Allergy Unknown Verified 10/07/20 16:18 [From Cipro] codeine Allergy Rash/Hives Verified 10/07/20 16:18 hydrocodone bitartrate Allergy Rash/Hives Verified 10/07/20 16:18 [From Lortab] hydromorphone [From Dilaudid] Allergy Rash/Hives Verified 10/07/20 16:18 meperidine HCl [From Demerol] Allergy Rash/Hives Verified 10/07/20 16:18 morphine Allergy Rash/Hives Verified 10/07/20 16:18 propoxyphene napsylate Allergy Rash/Hives Verified 10/07/20 16:18 [From Darvocet-N 100] soy Allergy Anaphylaxis Verified 10/07/20 16:18 Sulfa (Sulfonamide Allergy Rash/Hives Verified 10/07/20 16:18 Antibiotics) tetracycline [Tetracycline] Allergy Rash/Hives Verified 10/07/20 16:18 tioconazole [From Monistat 1] Allergy Rash/Hives Verified 10/07/20 16:18 hemp Allergy Rash/Hives Uncoded 10/07/20 16:18 Review of Systems ROS Statement: Those systems with pertinent positive or pertinent negative responses have been documented in the HPI. ROS Other: All systems not noted in ROS Statement are negative. Past Medical History Past Medical History: Asthma, Cancer, GERD/Reflux, GI Bleed, Hearing Disorder / Deafness, Hyperlipidemia, Hypertension, Osteoarthritis (OA), Seizure Disorder, Thyroid Disorder Additional Past Medical History / Comment(s): Last seizure over 1 yr ago. Hard of hearing. Hx bilateral breast cancer 20 yrs ago. Hx bowel obstruction, colitis. Exercise Induced Asthma. History of Any Multi-Drug Resistant Organisms: ESBL Date of last positivie culture/infection: 01/08/18 MDRO Source:: ESBL URINE Past Surgical History: Appendectomy, Back Surgery, Bariatric Surgery, Bowel Resection, Breast Surgery, Cholecystectomy, Heart Catheterization, Hernia Repair, Joint Replacement, Pacemaker, Tonsillectomy Additional Past Surgical History / Comment(s): LAP BAND INSERTED & REMOVED, GASTRIC SLEEVE (2016), BILATERAL TOTAL KNEE REPLACEMENTS, CERVICAL FUSION (2-7), BOWEL RESECTION, INCISIONAL HERNIA REPAIR, SEVERAL HEART CATHS-NO STENTS, COLECTOMY, BILATERAL BREAST LUMPECTOMIES. Past Anesthesia/Blood Transfusion Reactions: Previous Problems w/ Anesthesia Additional Past Anesthesia/Blood Transfusion Reaction / Comment(s): Blood transfusion X3 -no reaction. "Low BP with anesthesia if takes BP med AM of surgery." Type of Cardiac Device: Permanent Pacemaker Device Placement Date:: 10/12/17 Past Psychological History: Anxiety, Depression Smoking Status: Never smoker Past Alcohol Use History: None Reported Past Drug Use History: None Reported - Past Family History Mother Family Medical History: Pulmonary Embolus Additional Family Medical History / Comment(s): Multiple TIA's. Father Family Medical History: Cancer Additional Family Medical History / Comment(s): Lung Cancer. Sister(s) Family Medical History: Cancer Additional Family Medical History / Comment(s): OVARIAN CANCER. General Exam - General Exam Comments Initial Comments: This is a well-developed well-nourished awake alert oriented 3 female Limitations: no limitations General appearance: alert, anxious, in distress Head exam: Present: atraumatic, normocephalic, normal inspection Eye exam: Present: normal appearance, PERRL, EOMI. Absent: scleral icterus, conjunctival injection, periorbital swelling ENT exam: Present: normal exam, mucous membranes moist Neck exam: Present: normal inspection. Absent: tenderness, meningismus, lymphadenopathy Respiratory exam: Present: normal lung sounds bilaterally. Absent: respiratory distress, wheezes, rales, rhonchi, stridor Cardiovascular Exam: Present: regular rate, normal rhythm, normal heart sounds. Absent: systolic murmur, diastolic murmur, rubs, gallop, clicks GI/Abdominal exam: Present: soft, tenderness (Tenderness right lower quadrant right flank and right upper quadrant area no overt guarding or rebound at this time no bruits no pulsatile masses), normal bowel sounds. Absent: distended, guarding, rebound, rigid Rectal exam: Present: deferred Extremities exam: Present: normal inspection, full ROM, normal capillary refill. Absent: tenderness, pedal edema, joint swelling, calf tenderness Back exam: Present: normal inspection Neurological exam: Present: alert, oriented X3, CN II-XII intact Psychiatric exam: Present: normal affect, normal mood Skin exam: Present: warm, dry, intact, normal color. Absent: rash Course Vital Signs 10/07/20 10/07/20 16:15 17:41 Temperature 97.4 F L Pulse Rate 60 68 Respiratory 16 18 Rate Blood Pressure 156/84 132/70 O2 Sat by Pulse 97 Oximetry Medical Decision Making - Medical Decision Making I did reevaluate patient several occasions she is feeling much improved this time urine cultures pending the urine was clear yellow patient be discharged the presentation is consistent with a ball spasm. She does have Bentyl at home. - Lab Data Result diagrams: 10/07/20 16:47 10/07/20 16:47 Lab Results 10/07/20 10/07/20 Range/Units 16:47 16:47 WBC 6.2 (3.8-10.6) k/uL RBC 5.77 H (3.80-5.40) m/uL Hgb 13.7 (11.4-16.0) gm/dL Hct 43.0 (34.0-46.0) % MCV 74.4 L (80.0-100.0) fL MCH 23.7 L (25.0-35.0) pg MCHC 31.8 (31.0-37.0) g/dL RDW 15.5 (11.5-15.5) % Plt Count 263 (150-450) k/uL MPV 7.7 Neutrophils % 51 % Lymphocytes % 34 % Monocytes % 5 % Eosinophils % 8 % Basophils % 1 % Neutrophils # 3.2 (1.3-7.7) k/uL Lymphocytes # 2.1 (1.0-4.8) k/uL Monocytes # 0.3 (0-1.0) k/uL Eosinophils # 0.5 (0-0.7) k/uL Basophils # 0.1 (0-0.2) k/uL Hypochromasia Slight Microcytosis Slight Sodium 140 (137-145) mmol/L Potassium 4.2 (3.5-5.1) mmol/L Chloride 106 (98-107) mmol/L Carbon Dioxide 22 (22-30) mmol/L Anion Gap 12 mmol/L BUN 10 (7-17) mg/dL Creatinine 0.80 (0.52-1.04) mg/dL Est GFR (CKD-EPI)AfAm 86 (>60 ml/min/1.73 sqM) Est GFR (CKD-EPI)NonAf 75 (>60 ml/min/1.73 sqM) Glucose 116 H (74-99) mg/dL Calcium 9.5 (8.4-10.2) mg/dL Total Bilirubin 1.0 (0.2-1.3) mg/dL AST 28 (14-36) U/L ALT 14 (4-34) U/L Alkaline Phosphatase 128 H (38-126) U/L Creatine Kinase 44 (30-135) U/L Total Protein 8.1 (6.3-8.2) g/dL Albumin 4.9 (3.5-5.0) g/dL Amylase 68 (30-110) U/L Lipase 74 (23-300) U/L - Radiology Data Radiology results: report reviewed (Image reviewed no acute processes seen), image reviewed Disposition Clinical Impression: Spastic colon, Abdominal pain Disposition: HOME SELF-CARE Condition: Good Instructions (If sedation given, give patient instructions): Irritable Bowel Syndrome (ED) Is patient prescribed a controlled substance at d/c from ED?: No Referrals: Cade Menendez DO [Primary Care Provider] - 1-2 days
[2020-10-07 17:05] LABS: Basophils # (A) 0.1 k/uL (0-0.2); Basophils % (A) 1 %; Eosinophils # (A) 0.5 k/uL (0-0.7); Eosinophils % (A) 8 %; HGB 13.7 gm/dL (11.4-16.0); Hypochromasia Slight; Lymphocytes # (A) 2.1 k/uL (1.0-4.8); Lymphocytes % (A) 34 %; MCH 23.7 pg (25.0-35.0); MCHC 31.8 g/dL (31.0-37.0); MCV 74.4 fL (80.0-100.0); Mean Platelet Volume 7.7; Microcytosis Slight; Monocytes # (A) 0.3 k/uL (0-1.0); Monocytes % (A) 5 %; Neutrophils # (A) 3.2 k/uL (1.3-7.7); Neutrophils % (A) 51 %; Platelet Count 263 k/uL (150-450); RBC 5.77 m/uL (3.80-5.40); RDW 15.5 % (11.5-15.5); WBC 6.2 k/uL (3.8-10.6)
[2020-10-07 17:22] LABS: Albumin 4.9 g/dL (3.5-5.0); Calcium 9.5 mg/dL (8.4-10.2); Potassium 4.2 mmol/L (3.5-5.1); Total Protein 8.1 g/dL (6.3-8.2)
--- NOTE | 2020-10-07 18:53 | CT ---
EXAMINATION TYPE: CT abdomen pelvis w con DATE OF EXAM: 10/07/2020 COMPARISON: 12/29/2019. HISTORY: RQ abdomen pain CT DLP: 1180.8 mGycm Automated exposure control for dose reduction was used. TECHNIQUE: Helical acquisition of images was performed from the lung bases through the pelvis. CONTRAST: Performed without Oral Contrast and with IV Contrast, patient injected with 100 mL of Isovue 300. FINDINGS: LUNG BASES: Mild bibasilar opacity, compatible with atelectasis. LIVER/GB: No acute abnormality is appreciated. Cholecystectomy seen. PANCREAS: No significant abnormality is seen. SPLEEN: No significant abnormality is seen. ADRENALS: No significant abnormality is seen. KIDNEYS: No significant abnormality is seen. FREE AIR: No free air is visualized. RETROPERITONEAL ADENOPATHY: None visualized REPRODUCTIVE ORGANS: No significant abnormality is seen URINARY BLADDER: No significant abnormality is seen. PELVIC ADENOPATHY: None visualized. OSSEOUS STRUCTURES: No significant abnormality is seen. BOWEL: Stable postsurgical changes involving the gastroesophageal junction with small hiatal hernia seen. Prior post surgical changes involving sigmoid colon. No bowel obstruction, free air or fluid. OTHER: None IMPRESSION: NO ACUTE ABNORMALITY. STABLE CHRONIC AND INCIDENTAL FINDINGS ABOVE.
[2020-10-07 19:11] VITALS: BP 146/80; PULSE 79; RESP 16
== END 2020-10-07 19:11 | disposition home or self-care (01) ==
LOC: EC 16:10
DX: K58.9 Irritable bowel syndrome, unspecified (principal); I10 Essential (primary) hypertension; E78.5 Hyperlipidemia, unspecified; J45.990 Exercise induced bronchospasm; K21.9 Gastro-esophageal reflux disease without esophagitis; G40.909 Epilepsy, unspecified, not intractable, without status epilepticus; M19.90 Unspecified osteoarthritis, unspecified site; F41.9 Anxiety disorder, unspecified; F32.9 Major depressive disorder, single episode, unspecified; Z79.1 Long term (current) use of non-steroidal anti-inflammatories (NSAID); Z79.899 Other long term (current) drug therapy; Z85.3 Personal history of malignant neoplasm of breast; Z88.1 Allergy status to other antibiotic agents; Z88.2 Allergy status to sulfonamides; Z88.5 Allergy status to narcotic agent; Z95.0 Presence of cardiac pacemaker; Z98.84 Bariatric surgery status
CPT/HCPCS: 36415; 80053; 82150; 82550; 83690; 85025; 87040; 87086; 74177; 99284; 96374; J1885; Q9967; 87077; 87186

== ENCOUNTER 2020-10-20 11:07 | Emergency (ER) | payer MEDICARE ==
[2020-10-20 11:17] VITALS: BP 132/78; PULSE 56; RESP 16; TEMP 98.1
[2020-10-20] MEDS ORDERED: KETOROLAC 15 MG/ML 1 ML VIAL IM STA (11:41)
[2020-10-20] MEDS ORDERED: ORPHENADRINE 30 MG/ML 2 ML VIAL IM STA (11:41)
--- NOTE | 2020-10-20 12:39 | XR ---
EXAMINATION TYPE: XR lumbar spine 2 or 3V DATE OF EXAM: 10/20/2020 CLINICAL HISTORY: pain TECHNIQUE: Three views of the lumbar spine are submitted. COMPARISON: None. FINDINGS: There are 5 lumbar type vertebral bodies identified. The lumbar spine shows satisfactory alignment w ithout evidence of acute fracture or dislocation. Vertebral body heights are within normal limits. Mi ld degenerative change L4-5 and L5-S1. Facet joint arthropathy. The overlying soft tissue appears unr emarkable. IMPRESSION: No acute fracture or dislocation is seen in the lumbar spine. ICD 10 NO FRACTURE, INITIAL EVALUATION
--- NOTE | 2020-10-20 12:53 | XR ---
EXAMINATION TYPE: XR pelvis AP view DATE OF EXAM: 10/20/2020 CLINICAL HISTORY: pain TECHNIQUE: Single view the pelvis is submitted. FINDINGS: No evidence for fracture, dislocation or bony lesion. Joint spaces are well-preserved. S I joints appear symmetric. IMPRESSION: 1. No acute fracture or dislocation seen. ICD 10 NO FRACTURE, INITIAL EVALUATION
--- NOTE | 2020-10-20 12:57 | ED ---
Back Pain HPI - General Chief Complaint: Back Pain/Injury Stated Complaint: Hip & back pain Time Seen by Provider: 10/20/20 11:19 Source: patient, RN notes reviewed Limitations: no limitations - History of Present Illness Initial Comments: This a 70-year-old female presents emergency Department with chief complaint low back pain. Patient states that she him fallen out throughout the night. She schedule have surgery on her back and Dr. Armstrong few weeks. She has any bowel bladder incontinence or retention of saddle anesthesias. Patient states the pain is worse with movement states it's in her low back and pelvic region. Patient offers no complaints of head injury no other complaints. - Related Data Home Medications Medication Instructions Recorded Confirmed Levothyroxine Sodium [Synthroid] 50 mcg PO QAM 11/11/17 02/02/20 Meclizine [Antivert] 25 mg PO TID PRN 11/11/17 02/02/20 Omeprazole 20 mg PO BID 11/11/17 02/02/20 Potassium Chloride ER [K-Dur 20] 20 meq PO BID 11/11/17 02/02/20 buPROPion XL [Wellbutrin XL] 150 mg PO HS 11/11/17 02/02/20 carvediloL [Coreg] 3.125 mg PO BID 11/11/17 02/02/20 levETIRAcetam [Keppra] 1,000 mg PO BID 12/11/17 02/02/20 amLODIPine [Norvasc] 5 mg PO QAM 01/08/18 02/02/20 Citalopram Hydrobromide [CeleXA] 40 mg PO QAM 06/23/18 02/02/20 LORazepam [Ativan] 0.5 mg PO HS 11/07/18 02/02/20 Zolpidem [Ambien] 10 mg PO HS 11/07/18 02/02/20 Albuterol Inhaler (Mhu) [Ventolin 2 puff INHALATION RT-Q6H PRN 01/21/19 02/02/20 Hfa Inhaler (Mhu)] Baclofen 10 mg PO BID 07/13/19 02/02/20 Ibuprofen [Motrin] 800 mg PO TID 07/13/19 02/02/20 diphenhydrAMINE [Benadryl] 25 mg PO HS PRN 07/13/19 02/02/20 Dicyclomine [Bentyl] 10 mg PO TID PRN 01/28/20 02/02/20 Previous Rx's Medication Instructions Recorded traMADol HCL [Ultram] 50 mg PO Q6HR PRN 3 Days #12 tab 02/02/20 Allergies Allergy/AdvReac Type Severity Reaction Status Date / Time ciprofloxacin [From Cipro] Allergy Unknown Verified 10/20/20 11:14 ciprofloxacin HCl Allergy Unknown Verified 10/20/20 11:14 [From Cipro] codeine Allergy Rash/Hives Verified 10/20/20 11:14 hydrocodone bitartrate Allergy Rash/Hives Verified 10/20/20 11:14 [From Lortab] hydromorphone [From Dilaudid] Allergy Rash/Hives Verified 10/20/20 11:14 meperidine HCl [From Demerol] Allergy Rash/Hives Verified 10/20/20 11:14 morphine Allergy Rash/Hives Verified 10/20/20 11:14 propoxyphene napsylate Allergy Rash/Hives Verified 10/20/20 11:14 [From Darvocet-N 100] soy Allergy Anaphylaxis Verified 10/20/20 11:14 Sulfa (Sulfonamide Allergy Rash/Hives Verified 10/20/20 11:14 Antibiotics) tetracycline [Tetracycline] Allergy Rash/Hives Verified 10/20/20 11:14 tioconazole [From Monistat 1] Allergy Rash/Hives Verified 10/20/20 11:14 hemp Allergy Rash/Hives Uncoded 10/20/20 11:14 Review of Systems ROS Statement: Those systems with pertinent positive or pertinent negative responses have been documented in the HPI. ROS Other: All systems not noted in ROS Statement are negative. Past Medical History Past Medical History: Asthma, Cancer, GERD/Reflux, GI Bleed, Hearing Disorder / Deafness, Hyperlipidemia, Hypertension, Osteoarthritis (OA), Seizure Disorder, Thyroid Disorder Additional Past Medical History / Comment(s): Last seizure over 1 yr ago. Hard of hearing. Hx bilateral breast cancer 20 yrs ago. Hx bowel obstruction, colitis. Exercise Induced Asthma. History of Any Multi-Drug Resistant Organisms: ESBL Date of last positivie culture/infection: 01/08/18 MDRO Source:: ESBL URINE Past Surgical History: Appendectomy, Back Surgery, Bariatric Surgery, Bowel Resection, Breast Surgery, Cholecystectomy, Heart Catheterization, Hernia Repair, Joint Replacement, Pacemaker, Tonsillectomy Additional Past Surgical History / Comment(s): LAP BAND INSERTED & REMOVED, GASTRIC SLEEVE (2016), BILATERAL TOTAL KNEE REPLACEMENTS, CERVICAL FUSION (2-7), BOWEL RESECTION, INCISIONAL HERNIA REPAIR, SEVERAL HEART CATHS-NO STENTS, COLECTOMY, BILATERAL BREAST LUMPECTOMIES. Past Anesthesia/Blood Transfusion Reactions: Previous Problems w/ Anesthesia Additional Past Anesthesia/Blood Transfusion Reaction / Comment(s): Blood transfusion X3 -no reaction. "Low BP with anesthesia if takes BP med AM of surgery." Type of Cardiac Device: Permanent Pacemaker Device Placement Date:: 10/12/17 Past Psychological History: Anxiety, Depression Smoking Status: Never smoker Past Alcohol Use History: None Reported Past Drug Use History: None Reported - Past Family History Mother Family Medical History: Pulmonary Embolus Additional Family Medical History / Comment(s): Multiple TIA's. Father Family Medical History: Cancer Additional Family Medical History / Comment(s): Lung Cancer. Sister(s) Family Medical History: Cancer Additional Family Medical History / Comment(s): OVARIAN CANCER. General Exam Limitations: no limitations General appearance: alert, in no apparent distress Head exam: Present: atraumatic, normocephalic, normal inspection Neck exam: Present: normal inspection, full ROM. Absent: tenderness, meningismus, lymphadenopathy Respiratory exam: Present: normal lung sounds bilaterally. Absent: respiratory distress, wheezes, rales, rhonchi, stridor Cardiovascular Exam: Present: regular rate, normal rhythm, normal heart sounds. Absent: systolic murmur, diastolic murmur, rubs, gallop, clicks GI/Abdominal exam: Present: soft, normal bowel sounds. Absent: distended, tenderness, guarding, rebound, rigid Back exam: Present: full ROM, tenderness (Diffuse lumbar), paraspinal tenderness. Absent: vertebral tenderness Neurological exam: Present: alert, oriented X3, CN II-XII intact, reflexes normal. Absent: motor sensory deficit Course Vital Signs 10/20/20 11:14 Temperature 98.1 F Pulse Rate 56 L Respiratory 16 Rate Blood Pressure 132/78 O2 Sat by Pulse 98 Oximetry Medical Decision Making - Medical Decision Making Patient's x-rays do not reveal any acute amount and she is neurovascularly intact with no red flag symptoms. Patient's pains improved after Toradol. Patient does not request any further at home and she has multiple ALLERGIES she feels comfortable discharged return parameters were discussed. Disposition Clinical Impression: Fall, Back pain Disposition: HOME SELF-CARE Condition: Stable Instructions (If sedation given, give patient instructions): Back Pain (ED) Additional Instructions: Please return to the Emergency Department if symptoms worsen or any other concerns. Is patient prescribed a controlled substance at d/c from ED?: No Referrals: Cade Menendez DO [Primary Care Provider] - 1-2 days Time of Disposition: 12:57
== END 2020-10-20 13:08 | disposition home or self-care (01) ==
LOC: EC 11:07
DX: M54.5 Low back pain (principal); J45.909 Unspecified asthma, uncomplicated; I10 Essential (primary) hypertension; E78.5 Hyperlipidemia, unspecified; K21.9 Gastro-esophageal reflux disease without esophagitis; M19.90 Unspecified osteoarthritis, unspecified site; G40.909 Epilepsy, unspecified, not intractable, without status epilepticus; Z79.51 Long term (current) use of inhaled steroids; W18.30XA Fall on same level, unspecified, initial encounter
CPT/HCPCS: 72100; 72170; 99284; 96372 ×2; J2360; J1885

== ENCOUNTER → 2020-10-27 | Outpatient (CLI) | payer MEDICARE ==
[2020-10-27 11:20] LABS: Basophils # (A) 0.1 k/uL (0-0.2); Basophils % (A) 1 %; Eosinophils # (A) 0.4 k/uL (0-0.7); Eosinophils % (A) 8 %; HCT 41.1 % (34.0-46.0); HGB 12.4 gm/dL (11.4-16.0); Hypochromasia Moderate; Lymphocytes # (A) 1.9 k/uL (1.0-4.8); Lymphocytes % (A) 35 %; MCH 22.9 pg (25.0-35.0); MCHC 30.2 g/dL (31.0-37.0); MCV 75.9 fL (80.0-100.0); Mean Platelet Volume 7.3; Microcytosis Slight; Monocytes # (A) 0.3 k/uL (0-1.0); Monocytes % (A) 6 %; Neutrophils # (A) 2.5 k/uL (1.3-7.7); Neutrophils % (A) 47 %; Platelet Count 345 k/uL (150-450); RBC 5.42 m/uL (3.80-5.40); RDW 15.6 % (11.5-15.5); WBC 5.3 k/uL (3.8-10.6)
[2020-10-27 11:31] LABS: INR 0.9 (<1.2); Partial Thromboplastin Time 23.5 sec (22.0-30.0); Prothrombin Time 9.8 sec (9.0-12.0)
--- NOTE | 2020-10-27 12:01 | XR ---
EXAMINATION TYPE: XR chest 2V DATE OF EXAM: 10/27/2020 COMPARISON: 01/28/2020 HISTORY: 70-year-old female Z01.818, presurgical evaluation prior to back surgery. TECHNIQUE: Frontal and lateral views FINDINGS: Left anterior chest wall pacemaker generator with right atrial and right ventricular leads. Heart nor mal size. Aorta and pulmonary vasculature within normal limits. No consolidation or pleural effusion. Partially visualized ACDF hardware. IMPRESSION: No acute cardiopulmonary process.
[2020-10-27 13:05] LABS: Calcium 9.9 mg/dL (8.4-10.2); Potassium 4.8 mmol/L (3.5-5.1)
[2020-10-27 13:46] LABS: Appearance,Urine Clear (Clear); Bilirubin,Urine Negative (Negative); Blood,Urine Negative (Negative); Color,Urine Yellow; Glucose,Urine (UA) Negative (Negative); Ketones,Urine Negative (Negative); Leukocyte Esterase,Urine Negative (Negative); Nitrite,Urine Negative (Negative); PH, Urine 6.5 (5.0-8.0); Protein,Urine Negative (Negative); Specific Gravity,Urine 1.013 (1.001-1.035); Urobilinogen,Urine <2.0 mg/dL (<2.0)
== END | disposition home or self-care (01) ==
LOC: LABPAT 10:14
PROVIDERS: ATTEND Orthopaedic Surgery Orthopaedic Surgery of the Spine
DX: Z01.818 Encounter for other preprocedural examination (principal); M48.061 Spinal stenosis, lumbar region without neurogenic claudication
CPT/HCPCS: 71046; 80048; 81003; 85025; 85610; 85730; 87070

== ENCOUNTER 2020-11-08 10:59 | Inpatient (IN) | payer MEDICARE ==
[~2020-11-08 10:59] MED LIST changes: -DEXAMETHASONE SOD PHOSPHATE 10 MG/ML 1 ML VIAL IV ONE; -LIDOCAINE 1% (10MG/ML) FOR IV START INTRADERMA PRN; -ceFAZolin 1,000 MG in SODIUM CHLORIDE 0.9% IRRIGATIO 1,000 ML IRRIGATION ONE; +ceFAZolin 1,000 MG in SODIUM CHLORIDE 0.9% IRRIGATIO 1,000 ML IRRIGATION PRN
[2020-11-08] MEDS ORDERED: ONDANSETRON 4 MG/2 ML VIAL ONE (11:51)
[2020-11-08] MEDS ORDERED: LACTATED RINGERS 1,000 ML IV ONE ×2 (11:58→15:17)
[2020-11-08] MEDS ORDERED: LIDOCAINE 1% (10MG/ML) FOR IV START INTRADERMA ONE (11:58)
[2020-11-08] MEDS ORDERED: ONDANSETRON 4 MG/2 ML VIAL IVP ONE ×2 (12:00→17:02)
[2020-11-08] MEDS ORDERED: NEOSTIGMINE 1 MG/ML 10 ML VIAL ONE (12:06)
[2020-11-08] MEDS ORDERED: PROPOFOL 10 MG/ML 20 ML VIAL IV ONE (12:06)
[2020-11-08] MEDS ORDERED: GLYCOPYRROLATE 0.2 MG/ML 2 ML VIAL ONE (12:06)
[2020-11-08] MEDS ORDERED: SUCCINYLCHOLINE CHLORIDE 100 MG/5 ML SYR IV ONE (12:06)
[2020-11-08] MEDS ORDERED: LIDOCAINE 1% INJ 10MG/ML (20 ML MDV) ONE (12:06)
[2020-11-08] MEDS ORDERED: ROCURONIUM 10 MG/ML (5 ML VIAL) IV ONE (12:06)
[2020-11-08] MEDS ORDERED: fentaNYL (PF) 50 MCG/ML 2 ML AMP ONE (12:06)
[2020-11-08] MEDS ORDERED: PHENYLEPHRINE-0.9% NACL SYG 1,000 MCG/10 ML SYRINGE ONE (12:06)
[2020-11-08] MEDS ORDERED: LIDOCAINE 2%-EPI 1:100,000 20 ML VIAL SQ ONE (12:52)
[2020-11-08] MEDS ORDERED: GELATIN SPONGE,ABSORB (LARGE) 1 EACH SPONGE TOPICAL ONE (12:52)
[2020-11-08] MEDS ORDERED: THROMBIN (BOVINE) 5,000 UNIT VIAL TOPICAL ONE (12:52)
[2020-11-08] MEDS ORDERED: BUPIVACAINE (PF) 0.25% 30 ML VIAL SQ ONE (12:53)
--- NOTE | 2020-11-08 16:11 | XR ---
Fluoroscopy History: LUMBAR FUSION Fluoroscopy provided for lumbar fusion.
[2020-11-08] MEDS ORDERED: BENZOCAINE/MENTHOL LOZENG 1 EACH LOZENGE MUCOUS MEM PRN (16:12)
[2020-11-08] MEDS ORDERED: MAGNESIUM HYDROXIDE 2,400 MG/10 ML CUP PO PRN (16:13)
[2020-11-08] MEDS ORDERED: ONDANSETRON 4 MG/2 ML VIAL IVP PRN (16:13)
[2020-11-08] MEDS ORDERED: CYCLOBENZAPRINE 10 MG TAB PO PRN (16:13)
[2020-11-08] MEDS ORDERED: bisacodyL 10 MG SUPP RECTAL PRN (16:13)
[2020-11-08] MEDS ORDERED: MECLIZINE 25 MG TAB PO PRN (16:21)
[2020-11-08] MEDS ORDERED: ALBUTEROL NEBULIZED 2.5 MG/3 ML INHALATION PRN (16:21)
[2020-11-08] MEDS ORDERED: diphenhydrAMINE 25 MG CAP PO PRN (16:21)
[2020-11-08] MEDS: fentaNYL (PF) 50 MCG/ML 2 ML AMP IV ONE ×2 (16:22→16:35)
--- NOTE | 2020-11-08 16:31 | P.OP ---
Date of Procedure: 11/08/20 Preoperative Diagnosis: Spondylolisthesis L4 5, spinal stenosis L3 4 L4 5, degenerative disc disease, lower extremity radiculopathy, lower extremity weakness, low back pain, facet arthrosis Postoperative Diagnosis: Same Anesthesia: GETA Pathology: none sent Condition: stable Disposition: PACU Description of Procedure: DESCRIPTION OF PROCEDURE(S): BRIEF OPERATIVE NOTE Preoperative Diagnosis: Spondylolisthesis L4 5, spinal stenosis L3 4 L4 5, degenerative disc disease, lower extremity radiculopathy, lower extremity weakness, low back pain, facet arthrosis Postoperative Diagnosis:Spondylolisthesis L4 5, spinal stenosis L3 4 L4 5, degenerative disc disease, lower extremity radiculopathy, lower extremity weakness, low back pain, facet arthrosis, with incidental pinhole size durotomy at L3 4 Procedure: Laminectomy and decompression L3 4 L4 5 Minimally invasive Posterior lateral decompression and facet fusion L3 4 L4 5 Minimally invasive Transforaminal lumbar interbody fusion for a 360 fusion L3 4 L4 5 Discectomy for decompression L3 4 L4 5 Placement of interbody graft L3 4 L4 5 Local autogenous bone grafting Aspiration of bone marrow aspirate from the vertebral body of L3 to use an adjunct for bone grafting Use of Cell Saver Use of bone graft extenders Neuro monitoring Surgeon: Dr. Marks Mill Hand Plate Mill: [place] is present throughout the entire the case persistence during positioning, dissection, exposure, visualization, and all crucial elements of the case as well as closure. Anesthesia: General anesthesia Estimated blood loss: Approximately 150 mL Complications: Pinhole size incidental durotomy at L34 which was sealed appropriately with Tisseel Components implanted: Cristóbal K2M [place] pedicle screw system with 5.5 and 6.5 mm screws with [place] interbody cages and bio4 Osteoamp and DBX bone graft boats bone graft to supplemental local autogenous bone graft and bone marrow aspirate Disposition: To recovery room in good stable condition. OPERATIVE INDICATIONS The patient has had long-standing issues in their lower back and lower extremities. The patient was having worsening symptoms despite aggressive conservative care and was found have a dynamic spondylolisthesis at L4 5 with severe stenosis L3 4 L4 5 which was a well with her low back and lower extremity symptoms. The patient has been through conservative treatment. We discussed various treatment options including surgery, and the patient wishes to proceed with surgery We discussed the risk, patient's alternatives and benefits of surgery including but not limited to, risk of bleeding risk of infection, risk of need for further surgery, risk of decreased, loss of motion, muscle function, malunion nonunion, hardware failure, nerve damage, paralysis, heart attack, blindness and . OPERATIVE SUMMARY After discussing all the risks, patient alternatives and benefits at length, the patient elected to proceed with surgical intervention, signed informed consent, and presented for their procedure. The patient was seen and examined in the preoperative holding area and the surgical site was marked. The patient was given antibiotics and brought to the operating room. The patient was sedated and intubated by anesthesia in standard fashion. The patient was positioned on to the operating room table in a prone position on the appropriate frame which was well-padded and well molded. We were careful to pad any bony prominences and pressure points. We were careful to maintain the patient's cervical spine and good neutral alignment and position throughout. The patient was prepped and draped in a normal standard fashion. An appropriate timeout and keystone protocol performed. We were able to proceed with the surgery. The local wound area was infiltrated with local anesthetic. I was able utilize C-arm guidance to establish appropriate position over the pedicles bilaterally at the appropriate levels at L3 4 and 5. With the appropriate levels confirmed was able to make small stab incisions over the appropriate pedicle sites bilaterally. Utilizing C-arm in his house able to establish a Jamshidi needle over the lateral aspect of the pedicle and advanced the trocar into the pedicle being careful not to breech superiorly inferiorly medially or laterally. Position was confirmed regularly with AP and lateral images on C-arm. I was able to establish the trocar into the pedicle appropriately into the posterior aspect of the vertebral body bilaterally at the appropriate levels. This was done at each of the pedicle positions and each of the vertebrae. I was able place the guidewire into the trocar and into the vertebral body appropriately under C-arm guidance. Dissection was taken down over the wire to the appropriate starting position for the screw placed. The appropriate length screw was chosen, threaded over the guidewire and screwed appropriately into the pedicle and vertebral body under C-arm guidance in excellent alignment and position with good bony purchase. This is done at each of the screw sites at the appropriate levels bilaterally at L3 4 and 5. With the screws intact I extended the incision to connect the screw hole sites on the most symptomatic side. I dissected down to establish access over the pars and lamina to the base of the spinous process. I was able to expose the facet joint. The capsule the facet was taken down and showed some facet arthrosis at the joint. I was able to use a combination of curettes and Kerr[place] rongeurs and a high-speed drill to take down the facet joint and do a facetectomy. Partial laminectomy was also performed. I was able get excellent foraminal decompression and central decompression with undermining across midline to perform a laminectomy centrally and contralaterally. As able get good central decompression. The ligamentum flavum was taken down to further decompress centrally and at bilateral neural foramen. I was able to expose the disc space and visualize the traversing nerve root. Note was made of some disc protrusion at the level causing further compression of the nerve root. I was able to establish a annulotomy at the appropriate level protecting soft tissue and neural structures. Note was made of some disc desiccation at the disc. I performed a complete discectomy with accommodation of curettes and rasps and scrapers. I was able get good endplate preparation at the disc space. I sized for the appropriate size interbody spacer protecting the soft tissue and neural structures. The wound was copiously irrigated and suctioned dry. There is no evidence of any dural tear or leak. I was able to pack the disc space with local autogenous bone graft as well as a small amount of bone graft which was also placed into the interbody cage itself. Protecting the soft tissue structures and neural structures I was able place the interbody cage in good alignment and good position with good fit and fill at the interbody space. Position was confirmed with C-arm guidance. Good hemostasis maintained. There is no evidence of any dural tear or leak at L4 5 however there is a pinhole size incidental durotomy at L3 4. There is minimal drainage however I decided to close the area over with Tisseel. This seemed to seal the area well and there is no further evidence of dural leak. The wound was irrigated and suctioned dry. With the hardware intact, intraoperative C-arm imaging was again taken which showed good alignment and position of the hardware at the appropriate levels. We were then able to measure, contour and place the rods and appropriate hardware bilaterally. I was able to place capcrews, tighten them down, and torque them with the torque screwdriver appropriately. With this intact I was able to place the local autogenous bone graft with additional bone graft enhancer as necessary into the posterior lateral gutters over the decorticated transverse processes. The remainder of the bone graft was placed over the facet joint on the contralateral side on the left after taking down the facet joint capsule. With the bone graft intact, a stable construct, and good decompression at the appropriate levels, we were able to proceed with closure. Good hemostasis was maintained. There is no evidence of any further dural tear or leak. The fascia was closed for a watertight closure. he subcuticular tissue was closed with absorbable suture. The wound was cleaned and dried and dressed with the appropriate dressing. The drapes were broken down. The patient was gently rolled back onto their hospital bed being careful to maintain their cervical spine and good neutral alignment and position. They were woken up by anesthesia, extubated, and brought to the recovery room in good stable condition. The patient will be admitted to the hospital for appropriate postoperative care, medical management and monitoring. We will continue to follow them closely about the postoperative course.
[2020-11-08] MEDS ORDERED: diphenhydrAMINE 50 MG/ML 1 ML VIAL IVP ONE ×2 (16:59→17:25)
[2020-11-08] MEDS ORDERED: diphenhydrAMINE 50 MG/ML 1 ML VIAL ONE (17:01)
[2020-11-08] MEDS: diazePAM 5 MG TAB PO PRN (18:37)
[2020-11-08] MEDS: carvediloL 3.125 MG TAB PO SCH (19:16)
[2020-11-08] MEDS ORDERED: diphenhydrAMINE 50 MG/ML 1 ML VIAL IVP PRN (19:19)
[2020-11-08] MEDS: SODIUM CHLORIDE 0.9% 1,000 ML IV SCH (19:22)
[2020-11-08] MEDS: HYDROmorphone 1 MG/ML 1 ML SYRINGE IVP PRN (19:40)
[2020-11-08] MEDS: ZOLPIDEM 10 MG TAB PO SCH (20:38)
[2020-11-08] MEDS: BACLOFEN 10 MG TAB PO SCH (20:39)
[2020-11-08] MEDS: POTASSIUM CHLORIDE ER 20 MEQ TAB.ER PO SCH (20:39)
[2020-11-08] MEDS: levETIRAcetam 500 MG TAB PO SCH (20:39)
[2020-11-08] MEDS: buPROPion XL 150 MG TAB.ER.24H PO SCH (20:39)
[2020-11-08] MEDS: ACETAMINOPHEN TAB 500 MG TAB PO SCH ×2 (20:40→23:02)
[2020-11-09] MEDS: LEVOTHYROXINE 50 MCG TAB PO SCH (05:27)
[2020-11-09] MEDS: ACETAMINOPHEN TAB 500 MG TAB PO SCH ×3 (05:27→17:15)
[2020-11-09] MEDS: SODIUM CHLORIDE 0.9% 1,000 ML IV SCH ×3 (05:54→20:57)
[2020-11-09] MEDS: HYDROmorphone 1 MG/ML 1 ML SYRINGE IVP PRN ×4 (07:51→20:51)
[2020-11-09] MEDS: PANTOPRAZOLE 40 MG TABLET PO SCH (08:29)
[2020-11-09] MEDS: carvediloL 3.125 MG TAB PO SCH ×2 (08:29→17:15)
[2020-11-09 09:23] LABS: Basophils # (A) 0.03 X 10*3/uL (0.00-0.10); Basophils % (A) 0.3 %; Eosinophils # (A) 0.08 X 10*3/uL (0.04-0.35); Eosinophils % (A) 0.9 %; HCT 32.8 % (37.2-46.3); HGB 9.9 g/dL (12.0-15.0); Lymphocytes # (A) 0.69 X 10*3/uL (0.90-5.00); Lymphocytes % (A) 7.4 %; MCH 23.2 pg (27.0-32.0); MCHC 30.2 g/dL (32.0-37.0); MCV 76.8 fL (80.0-97.0); Mean Platelet Volume 10.4 fL (9.5-12.2); Monocytes # (A) 0.72 X 10*3/uL (0.20-1.00); Monocytes % (A) 7.7 %; Neutrophils # (A) 7.83 X 10*3/uL (1.80-7.70); Neutrophils % (A) 83.4 %; Platelet Count 243 X 10*3/uL (140-440); RBC 4.27 X 10*6/uL (4.10-5.20); RDW 15.9 % (11.5-14.5); WBC 9.38 X 10*3/uL (4.50-10.00)
[2020-11-09 09:28] LABS: African American GFR (CKD) >90 (>60 ml/min/1.73 sqM); Anion Gap 4 mmol/L; Blood Urea Nitrogen 9 mg/dL (7-17); Calcium 8.2 mg/dL (8.4-10.2); Carbon Dioxide 27 mmol/L (22-30); Chloride 107 mmol/L (98-107); Glucose 113 mg/dL (74-99); Non-African American GFR(CKD) >90 (>60 ml/min/1.73 sqM); Potassium 3.8 mmol/L (3.5-5.1); Sodium 138 mmol/L (137-145)
[2020-11-09] MEDS: POTASSIUM CHLORIDE ER 20 MEQ TAB.ER PO SCH ×2 (09:43→20:50)
[2020-11-09] MEDS: levETIRAcetam 500 MG TAB PO SCH ×2 (09:43→20:51)
[2020-11-09] MEDS: amLODIPine 5 MG TAB PO SCH (09:43)
[2020-11-09] MEDS: BACLOFEN 10 MG TAB PO SCH ×2 (09:43→20:50)
[2020-11-09] MEDS: CITALOPRAM HYDROBROMIDE 20 MG TAB PO SCH (09:44)
--- NOTE | 2020-11-09 10:34 | P.PN ---
Progress Note - Text Progress Note Date: 11/09/20 Postoperative day #1 Patient is seen and examined today at bedside. The patient has some pain around the surgical site as expected. Pain is being controlled with medication. She has some history of issues with multiple ALLERGIES for pain medications but she is tolerating the IV Dilaudid adequately without any evidence of rash or breathing difficulty or ALLERGIC reaction. She denies any headaches. She denies any changes in bowel bladder function. She has remained flat in bed. Physical Exam Afebrile with stable vital signs Abdomen is soft nontender. Chest has good excursion deep and space expiration The incision site is clean dry and intact. No erythema there is no purulence. the dressing is intact Extremities have not had neurologic change from prior to surgery. she has sustained dorsal flexion plantar flexion and EHL intact Calves and thighs were soft nontender without evidence of DVT. Assessment/Plan Postoperative day #1 status post minimally invasive decompression and fusion L4 5 and L3 4 with pedicle screw fixation and interbody bone grafting and caging at L4 5 and L3 4 for her spondylolisthesis with severe spinal stenosis and lower extremity claudication and radiculopathy Complete bedrest due to incidental durotomy which occurred at the time of surgery. She needs remain flat in bed until this afternoon to allow further healing at the area before we can start her mobilization. The patient seems to be making progress appropriate we thus far without any evidence of spinal headaches. I think the patient required intubation and maintenance due to the fact that she is 70 years old and just had a 2 level lumbar spinal fusion with instrumentation as well as the fact that she had a small incidental durotomy at time of her surgery. With this the area was secured but would require time on bed rest to allow appropriate healing and consolidation before we can allow her to mobilize. She needs to be watched very closely and continued on bedrest through the afternoon today at which time he can start to see if she is able to mobilize. If she is not able to mobilize or elevate without any headaches then she will need to continue on strict bedrest flat in bed without any elevation of her head. Further she also has significant issues with multiple pain medications and our pain regimen is somewhat limited due to this. So far she is tolerating her IV Dilaudid and we could consider continuing oral Dilaudid at home when she is stable for discharge. I do not think it would be appropriate for this patient to be considered an outpatient due to her age her significant surgical intervention that she went through as well as the incidental durotomy that occurred at the time of surgery and the need for her closed management and monitoring and care. Patient is progressing as expected from the surgery thus far with her flat in bed . We will continue to increase the patient's mobilization with therapy this afternoon and into tomorrow if she is able to mobilize without any evidence of spinal headaches. We will continue pain control with oral or IV medications. We'll continue to follow patient closely.
[2020-11-09] MEDS ORDERED: IPRATROPIUM-ALBUTEROL 3 ML NEB INHALATION PRN (12:07)
--- NOTE | 2020-11-09 13:09 | P.CONS ---
History of Present Illness - Reason for Consult Consult date: 11/09/20 Medical management seizure disorder, hypothyroidism, asthma Requesting physician: Sarah Marks - Chief Complaint Chronic low back pain, radiculopathy, degenerative disc disease, spinal sascha - History of Present Illness This is a 70-year-old female with past medical history of permanent pacemaker, hypertension, anxiety, gastroesophageal reflux disease, GI bleed, osteoarthr itis, cholecystectomy, lap band removal, colectomy, colitis, chronic low back pain with Spondylolisthesis,severe spinal stenosis, lower extremity radiculopathy, status post decompression, fusion L4 5 and L3 4. Tolerated procedure well. Reports last night had significant pain which is better controlled this morning. Multiple ALLERGIES but tolerating IV Dilaudid. Lying flat as per orthopedic instruction until later this afternoon, with no headache. Remains on complete bed rest due to incidental durotomy occurring during surgery. Denies lightheadedness, dizziness or focal deficits. No seizure activity. Denies chest pain, palpitations or shortness of breath. VSS, maintaining O2 sats in the mid 90s on 2 L nasal cannula. Afebrile. Labs pending. Review of Systems ROS Statement: Those systems with pertinent positive or pertinent negative responses have been documented in the HPI. ROS Other: All systems not noted in ROS Statement are negative. Past Medical History Past Medical History: Asthma, Cancer, GERD/Reflux, GI Bleed, Hearing Disorder / Deafness, Hyperlipidemia, Hypertension, Osteoarthritis (OA), Seizure Disorder, Thyroid Disorder Additional Past Medical History / Comment(s): Last seizure over 2yr ago. Hard of hearing. MENIERES. Hx bilateral breast cancer 20 yrs ago. Hx bowel obstruction FROM DIVERTICULTIS. colitis. Exercise Induced Asthma. History of Any Multi-Drug Resistant Organisms: ESBL Year Discovered:: 01/08/18 MDRO Source:: ESBL URINE Past Surgical History: Appendectomy, Back Surgery, Bariatric Surgery, Bowel Resection, Breast Surgery, Cholecystectomy, Heart Catheterization, Hernia Repair, Joint Replacement, Pacemaker, Tonsillectomy Additional Past Surgical History / Comment(s): PACEMAKER. LAP BAND INSERTED & REMOVED. GASTRIC SLEEVE (2016). BILATERAL TOTAL KNEE REPLACEMENTS, CERVICAL FUSION (2-7). BOWEL RESECTION (DIVERTICULITIS). INCISIONAL HERNIA REPAIR SEVERAL HEART CATHS-NO STENTS. BILATERAL BREAST LUMPECTOMIES (CANCER). Past Anesthesia/Blood Transfusion Reactions: Previous Problems w/ Anesthesia Additional Past Anesthesia/Blood Transfusion Reaction / Comm: Blood transfusion X3 -no reaction. "Low BP with anesthesia if takes BP med AM of surgery." Type of Cardiac Device: Permanent Pacemaker Device Placement Date:: 10/12/17 Past Psychological History: Anxiety, Depression Additional Psychological History / Comment(s): lives with sister, uses walker when up. Smoking Status: Never smoker Past Alcohol Use History: None Reported Past Drug Use History: None Reported - Past Family History Mother Family Medical History: Pulmonary Embolus Additional Family Medical History / Comment(s): Multiple TIA's. Father Family Medical History: Cancer Additional Family Medical History / Comment(s): Lung Cancer. Sister(s) Family Medical History: Cancer, Deep Vein Thrombosis (DVT), Pulmonary Embolus Additional Family Medical History / Comment(s): OVARIAN CANCER. Medications and Allergies Home Medications Medication Instructions Recorded Confirmed Type Levothyroxine Sodium [Synthroid] 50 mcg PO QAM 11/11/17 11/08/20 History Meclizine [Antivert] 25 mg PO TID PRN 11/11/17 11/08/20 History Omeprazole 20 mg PO BID 11/11/17 11/08/20 History Potassium Chloride ER [K-Dur 20] 20 meq PO BID 11/11/17 11/08/20 History buPROPion XL [Wellbutrin XL] 150 mg PO HS 11/11/17 11/08/20 History carvediloL [Coreg] 3.125 mg PO BID 11/11/17 11/08/20 History levETIRAcetam [Keppra] 1,000 mg PO BID 12/11/17 11/08/20 History amLODIPine [Norvasc] 5 mg PO QAM 01/08/18 11/08/20 History Citalopram Hydrobromide [CeleXA] 40 mg PO QAM 06/23/18 11/08/20 History LORazepam [Ativan] 0.5 mg PO HS 11/07/18 11/08/20 History Zolpidem [Ambien] 10 mg PO HS 11/07/18 11/08/20 History Albuterol Inhaler (Mhu) [Ventolin 2 puff INHALATION RT-Q6H PRN 01/21/19 11/08/20 History Hfa Inhaler (Mhu)] Baclofen 10 mg PO BID 07/13/19 11/08/20 History Ibuprofen [Motrin] 800 mg PO TID 07/13/19 11/08/20 History diphenhydrAMINE [Benadryl] 25 mg PO HS PRN 07/13/19 11/08/20 History J & J Covid Vacine. 1 dose IM ONCE 11/02/20 11/08/20 History HYDROmorphone [Dilaudid] 2 mg PO Q4-6H PRN 7 Days #28 tab 11/09/20 Rx Allergies Allergy/AdvReac Type Severity Reaction Status Date / Time ciprofloxacin [From Cipro] Allergy Unknown Verified 11/08/20 11:17 ciprofloxacin HCl Allergy Unknown Verified 11/08/20 11:17 [From Cipro] codeine Allergy Rash/Hives Verified 11/08/20 11:17 hydrocodone bitartrate Allergy Rash/Hives Verified 11/08/20 11:17 [From Lortab] hydromorphone [From Dilaudid] Allergy Rash/Hives Verified 11/08/20 11:17 meperidine HCl [From Demerol] Allergy Rash/Hives Verified 11/08/20 11:17 morphine Allergy Rash/Hives Verified 11/08/20 11:17 propoxyphene napsylate Allergy Rash/Hives Verified 11/08/20 11:17 [From Darvocet-N 100] soy Allergy Anaphylaxis Verified 11/08/20 11:17 Sulfa (Sulfonamide Allergy Rash/Hives Verified 11/08/20 11:17 Antibiotics) tetracycline [Tetracycline] Allergy Rash/Hives Verified 11/08/20 11:17 tioconazole [From Monistat 1] Allergy Rash/Hives Verified 11/08/20 11:17 tramadol Allergy Rash/Hives. Verified 11/08/20 11:17 "THROAT CLOSING UP" hemp Allergy Rash/Hives Uncoded 11/08/20 11:17 Physical Exam Vitals: Vital Signs Temp Pulse Pulse Resp BP BP BP 11/09/20 07:44 97.7 F 73 18 119/66 11/09/20 07:36 97.4 F L 74 16 119/66 119/66 11/09/20 02:00 98.5 F 82 138/66 11/08/20 23:10 67 122/71 11/08/20 20:15 63 122/72 11/08/20 20:00 67 133/75 11/08/20 19:45 61 131/71 11/08/20 19:30 60 112/69 11/08/20 19:15 64 103/63 11/08/20 19:00 62 111/66 11/08/20 18:45 62 104/64 11/08/20 18:29 63 98/60 11/08/20 18:14 60 96/60 11/08/20 17:59 93.8 F L 62 13 100/61 11/08/20 17:30 58 L 16 105/58 11/08/20 17:15 60 16 103/59 11/08/20 17:00 60 16 104/59 11/08/20 16:45 55 L 16 107/57 11/08/20 16:30 54 L 16 103/57 11/08/20 16:13 96.8 F L 60 16 107/56 11/08/20 11:27 97.2 F L 64 18 152/72 Pulse Ox 11/09/20 07:44 95 11/09/20 07:36 95 11/09/20 02:00 93 L 11/08/20 23:10 97 11/08/20 20:15 95 11/08/20 20:00 93 L 11/08/20 19:45 100 11/08/20 19:30 97 11/08/20 19:15 99 11/08/20 19:00 97 11/08/20 18:45 96 11/08/20 18:29 11/08/20 18:14 11/08/20 17:59 91 L 11/08/20 17:30 93 L 11/08/20 17:15 93 L 11/08/20 17:00 93 L 11/08/20 16:45 97 11/08/20 16:30 97 11/08/20 16:13 92 L 11/08/20 11:27 97 Intake and Output 11/08/20 11/09/20 11/09/20 22:59 06:59 14:59 Intake Total 800 Output Total 350 600 Balance 450 -600 Intake: IV 800 Output: Urine 200 600 Estimated Blood Loss 150 Other: Voiding Method Indwelling Catheter Weight 74.8 kg GENERAL: This is a 70-year-old in no apparent distress at the time of examination, lying flat in bed-as instructed per orthopedic surgery. Pleasant and cooperative. HEENT: Head is atraumatic, normocephalic. Pupils are equal, round, and reactive to light. Sclerae anicteric. Conjunctivae are clear. Mucus membranes of the mouth are moist. Neck is supple. RESPIRATORY: Clear to auscultation. No wheezes, rales, or rhonchi. No use of accessory muscles. Patient maintaining oxygen saturation greater than 92%. No chest wall tenderness is noted on palpation or with deep breathing. CARDIOVASCULAR: Regular rate and rhythm. S1 and S2 noted. No systolic or diastolic murmur auscultated. No JVD noted GASTROINTESTINAL: Abdomen soft, nondistended, nontender. Normal active bowel sounds auscultated x 4 quadrants. INTEGUMENTARY: No cyanosis. No jaundice. No rashes noted. No cellulitis noted. Unable to view the surgical site at this time as patient remains strict bed rest, as per orthopedic surgery. EXTREMITIES: 2+ peripheral pulses. No evidence of peripheral edema. No calf tenderness noted. NEUROLOGIC: Cranial nerves II-XII intact. PSYCHIATRIC: Awake, alert, and oriented X 3. Appropriate affect. Intact career education teacher ment and insight. Results CBC & Chem 7: 11/09/20 06:59 11/09/20 06:59 Assessment and Plan Assessment: Chronic low back pain with Spondylolisthesis,severe spinal stenosis, lower extremity radiculopathy, status post decompression, fusion L4 5 and L3 4. Incidental durotomy, on complete bedrest until later this afternoon as per orthopedic surgery Seizure disorder Chronic intermittent asthma, controlled Hypothyroidism Depression Hypertension Plan: Continue on current medication regime, monitoring and symptomatic treatment. Surgery pending this morning. Maintain gentle IV fluid hydration. Seizure precautions.Aggressive pulmonary toileting with incentive spirometer ordered. Diarrhea last night, C. difficile culture ordered. Home meds reviewed and resumed accordingly. GI prophylaxis in place . PT as per orthopedic surgery.Thank you Dr. Marks for the consult. The impression and plan of care has been dictated as directed. : I performed a history and examination of this patient, discussed the same with the dictator. I agree with the dictator's note ,documented as a scribe. Any additional findings or plans will be noted.
[2020-11-09] MEDS ORDERED: PROMETHAZINE 25 MG TAB PO PRN (14:00)
[2020-11-09] MEDS: IPRATROPIUM-ALBUTEROL 3 ML NEB INHALATION SCH ×2 (15:53→19:14)
[2020-11-09] MEDS: ZOLPIDEM 10 MG TAB PO SCH (20:51)
[2020-11-09] MEDS: buPROPion XL 150 MG TAB.ER.24H PO SCH (20:51)
[2020-11-10] MEDS: ACETAMINOPHEN TAB 500 MG TAB PO SCH ×5 (00:26→23:32)
[2020-11-10] MEDS: HYDROmorphone 1 MG/ML 1 ML SYRINGE IVP PRN ×3 (05:00→20:13)
[2020-11-10] MEDS: LEVOTHYROXINE 50 MCG TAB PO SCH (05:54)
[2020-11-10] MEDS: IPRATROPIUM-ALBUTEROL 3 ML NEB INHALATION SCH ×4 (07:41→19:08)
[2020-11-10] MEDS: PANTOPRAZOLE 40 MG TABLET PO SCH (07:57)
[2020-11-10] MEDS: carvediloL 3.125 MG TAB PO SCH ×2 (07:58→18:53)
[2020-11-10 08:30] LABS: African American GFR (CKD) >90 (>60 ml/min/1.73 sqM); Anion Gap 4 mmol/L; Blood Urea Nitrogen 7 mg/dL (7-17); Calcium 8.3 mg/dL (8.4-10.2); Carbon Dioxide 28 mmol/L (22-30); Chloride 106 mmol/L (98-107); Glucose 110 mg/dL (74-99); Non-African American GFR(CKD) >90 (>60 ml/min/1.73 sqM); Potassium 3.7 mmol/L (3.5-5.1); Sodium 138 mmol/L (137-145)
--- NOTE | 2020-11-10 08:38 | P.PN ---
Progress Note - Text Progress Note Date: 11/10/20 Orthopedic Spine: History of present illness: Patient is a pleasant 70-year-old female who is seen and examined at the bedside following posterior lateral decompression and fusion performed Friday. Patient states they are doing ok postsurgically. During surgical intervention she had an incidental durotomy. She had remained flat in bed until yesterday. She did have a mild generalized headache all day yesterday did improve with Tylenol. She states she was able to sit up yesterday but was not out of bed. She did not have further exacerbation of her generalized headache while sitting up. Currently does not complain of nausea, vomiting, fever, or chills. She does have ALLERGIES to multiple pain medications but has been able to take Dilaudid IV without significant difficulty. She has been able take baclofen without difficulty. Patient states pain has been adequately controlled. Patient is eating without difficulty. Her Lion catheter remains intact. She is being seen by medicine for her other medical diagnoses including hypertension, anxiety, history of shortness of breath, and depression. Physical Exam Lumbar Fusion: Status post surgical day number 2 Patient is awake, alert, and oriented 3 Vital signs stable Patient is examined lying flat in bed Dorsiflexion, plantarflexion, and extensor hallucis longus positive sustained bilaterally No signs or symptoms of DVT; no calf pain; pneumatic cuffs intact bilateral lower extremities Optifoam dressings remain intact over the lumbar spine and right iliac crest Neurovascularly intact bilaterally lower extremities Lion catheter intact Assessment: Status post L3-4 and L4-5 minimally invasive posterior lateral decompression and fusion with transforaminal lumbar interbody fusion Incidental durotomy Low back pain L4-5 spondylolisthesis Lumbar degenerative disc disease Lower extremity radiculopathy Lower extremity weakness Lumbar facet arthrosis L3-4 and L4 to 5 spinal canal stenosis Mild generalized headache yesterday Hypertension Anxiety History of shortness of breath Depression Plan: 1. Patient had a generalized headache yesterday but was able to sit up without exacerbation of her headache. Her generalized headache was well controlled with Tylenol. She did not appear to have evidence of a spinal headache. We discussed we will plan to have her sit up again this morning and we'll plan to increase her mobility and ambulation with physical therapy to her tolerance if she does not have evidence of spinal headache. 2. Continue pain control with IV and oral medications including IV Dilaudid and oral baclofen 10 mg MAPS was previously reviewed. An "Opiod Start Talking" Form has been signed and placed in the patient's chart. A prescription has been written for Dilaudid 2 mg 1 tab every 4-6 hours as needed for pain, dispense #28. Patient is also given a prescription for baclofen 10 mg 1 tablet twice a day as needed for muscle spasm, dispensed #45. These medications have been sent to the [facility] pharmacy located within the [facility]. 3. Dressings to remain intact with Optifoam; patient may shower with dressings intact 4. Medical management can continue to manage patient for patient's other medical diagnoses including hypertension, anxiety, depression, and history of shortness of breath 5. Given the patient's age, recent 2 level lumbar fusion performed on 11/08/2020, incidental durotomy during surgical intervention requiring bedrest, and slow progression with mobility and ambulation, we feel the patient continues to require inpatient admit status. If she does not have evidence of spinal headache today we will plan to have her work with physical therapy increase her mobility and ambulation. If she is able to make good progress, we may plan to have her discharge home over the next couple days. 6. Discontinue Lion catheter when patient is able to increase her mobility and ambulation 7. Patient can follow-up with [facility] PA-C or Dr. Toi Marks at [facility] in 2-3 weeks following discharge
[2020-11-10] MEDS: amLODIPine 5 MG TAB PO SCH (09:17)
[2020-11-10] MEDS: BACLOFEN 10 MG TAB PO SCH ×2 (09:17→20:10)
[2020-11-10] MEDS: POTASSIUM CHLORIDE ER 20 MEQ TAB.ER PO SCH ×2 (09:18→20:10)
[2020-11-10] MEDS: levETIRAcetam 500 MG TAB PO SCH ×2 (09:20→20:10)
[2020-11-10] MEDS: CITALOPRAM HYDROBROMIDE 20 MG TAB PO SCH (09:20)
[2020-11-10 11:09] LABS: Basophils # (A) 0.03 X 10*3/uL (0.00-0.10); Basophils % (A) 0.2 %; Eosinophils # (A) 0.31 X 10*3/uL (0.04-0.35); Eosinophils % (A) 2.4 %; HCT 31.4 % (37.2-46.3); HGB 9.4 g/dL (12.0-15.0); Lymphocytes # (A) 0.94 X 10*3/uL (0.90-5.00); Lymphocytes % (A) 7.2 %; MCH 23.4 pg (27.0-32.0); MCHC 29.9 g/dL (32.0-37.0); MCV 78.1 fL (80.0-97.0); Mean Platelet Volume 11.1 fL (9.5-12.2); Monocytes # (A) 0.92 X 10*3/uL (0.20-1.00); Neutrophils # (A) 10.81 X 10*3/uL (1.80-7.70); Neutrophils % (A) 82.7 %; Platelet Count 219 X 10*3/uL (140-440); RBC 4.02 X 10*6/uL (4.10-5.20); RDW 16.4 % (11.5-14.5); WBC 13.08 X 10*3/uL (4.50-10.00)
--- NOTE | 2020-11-10 12:00 | P.PN ---
Subjective Patient is admitted for a decompression and fusion of L4-5 and L3-4. Patient is still having a significant tobacco pain because of which her hospitalization is being continued. Patient does have leukocytosis doesn't have any fever chills. Constitutional: Denied any fatigue denied any fever. Cardio vascular: denied any chest pain, palpitations Gastrointestinal denied any nausea vomiting Pulmonary: Denied any shortness of breath cough Neurologic denied any new focal deficits All inpatient medications were reviewed and appropriate changes in these medications as dictated in the interval history and assessment and plan. PHYSICAL EXAMINATION: GENERAL: The patient is alert and oriented x3, not in any acute distress. Well developed, well nourished. HEENT: Pupils are round and equally reacting to light. EOMI. No scleral icterus. No conjunctival pallor. Normocephalic, atraumatic. No pharyngeal erythema. No thyromegaly. CARDIOVASCULAR: S1 and S2 present. No murmurs, rubs, or gallops. PULMONARY: Chest is clear to auscultation, no wheezing or crackles. ABDOMEN: Soft, nontender, nondistended, normoactive bowel sounds. No palpable organomegaly. MUSCULOSKELETAL: Deferred to orthopedic surgery EXTREMITIES: No cyanosis, clubbing, or pedal edema. NEUROLOGICAL: Gross neurological examination did not reveal any focal deficits. SKIN: No rashes. Assessment and plan -Status post decompression laminectomy of lower lumbar spine, be continue with PT and OT pain management as per primary service -Hypertension: May not need amlodipine this will be discontinued -Depression -Leukocytosis reactive secondary to surgery no clinical evidence of infection at this time -Seizure disorder -Chronic intermittent asthma without any acute exacerbation DVT prophylaxis: As per primary service Objective - Vital Signs Vital signs: Vital Signs Temp 97.6 F 11/10/20 08:03 Pulse 76 11/10/20 11:55 Resp 19 11/10/20 08:03 BP 117/69 11/10/20 08:03 Pulse Ox 92 L 11/10/20 08:03 Intake & Output 11/09/20 11/10/20 11/10/20 18:59 06:59 18:59 Intake Total 1080 480 Output Total 700 600 Balance 380 -120 Intake: Oral 1080 480 Output: Urine 700 600 Uretheral (Lion) 700 Other: Voiding Method Indwelling Catheter Indwelling Catheter - Labs CBC & Chem 7: 11/10/20 07:23 11/10/20 07:23 Labs: Abnormal Lab Results - Last 24 Hours (Table) 11/10/20 11/10/20 Range/Units 07:23 07:23 WBC 13.08 H (4.50-10.00) X 10*3/uL RBC 4.02 L (4.10-5.20) X 10*6/uL Hgb 9.4 L (12.0-15.0) g/dL Hct 31.4 L (37.2-46.3) % MCV 78.1 L (80.0-97.0) fL MCH 23.4 L (27.0-32.0) pg MCHC 29.9 L (32.0-37.0) g/dL RDW 16.4 H (11.5-14.5) % Immature Gran # 0.07 H (0.00-0.04) X 10*3/uL Neutrophils # 10.81 H (1.80-7.70) X 10*3/uL Glucose 110 H (74-99) mg/dL Calcium 8.3 L (8.4-10.2) mg/dL
[2020-11-10] MEDS: buPROPion XL 150 MG TAB.ER.24H PO SCH (20:09)
[2020-11-10] MEDS: ZOLPIDEM 10 MG TAB PO SCH (20:09)
[2020-11-11] MEDS: LEVOTHYROXINE 50 MCG TAB PO SCH (06:03)
[2020-11-11] MEDS: ACETAMINOPHEN TAB 500 MG TAB PO SCH ×4 (06:03→23:39)
[2020-11-11 08:09] LABS: Glucose,Whole Blood 129 mg/dL (75-99)
[2020-11-11] MEDS: levETIRAcetam 500 MG TAB PO SCH ×2 (08:36→22:22)
[2020-11-11] MEDS: POTASSIUM CHLORIDE ER 20 MEQ TAB.ER PO SCH ×2 (08:36→22:21)
[2020-11-11] MEDS: carvediloL 3.125 MG TAB PO SCH ×2 (08:36→17:20)
[2020-11-11] MEDS: PANTOPRAZOLE 40 MG TABLET PO SCH (08:36)
[2020-11-11] MEDS: BACLOFEN 10 MG TAB PO SCH ×2 (08:36→22:22)
[2020-11-11] MEDS: CITALOPRAM HYDROBROMIDE 20 MG TAB PO SCH (08:36)
[2020-11-11] MEDS: IPRATROPIUM-ALBUTEROL 3 ML NEB INHALATION SCH ×4 (08:48→22:17)
--- NOTE | 2020-11-11 09:01 | P.PN ---
Subjective Progress Note Date: 11/11/20 Principal diagnosis: Status post L3-4 and L4-5 minimally invasive posterior lateral decompression and fusion with transforaminal lumbar interbody fusion with incidental durotomy The patient is a pleasant 70-year-old female who is seen and examined at the bedside following minimally invasive posterior lateral decompression and fusion performed Friday. Patient appears very sleepy and easy falls asleep while talking to her. During surgical intervention she had an incidental durotomy. She had remained flat in bed until . She did have a mild generalized headache all day 2 days ago did improve with Tylenol. Nursing staff states she ambulated to the bathroom to have a bowel movement this morning but did not have one. No headache today. She does have ALLERGIES to multiple pain medications but has been able to take Dilaudid IV without significant difficulty. She has been able take baclofen without difficulty. Patient states pain has been adequately controlled this morning. Patient is eating without difficulty. Her [place] catheter remains intact. She is being seen by medicine for her other medical diagnoses including hypertension, anxiety, history of shortness of breath, and depression. Nursing staff states her pulse ox was 86% on room air this morning and they applied 2L via nasal cannula. Objective - Vital Signs Vital signs: Vital Signs Temp 97.9 F 11/11/20 00:55 Pulse 74 11/11/20 00:55 Resp 15 11/11/20 00:55 BP 110/69 11/11/20 00:55 Pulse Ox 90 L 11/11/20 00:55 Intake & Output 11/10/20 11/11/20 11/11/20 18:59 06:59 18:59 Intake Total 1080 1080 Output Total 500 700 Balance 580 380 Intake: Oral 1080 1080 Output: Urine 500 700 Other: Voiding Method Indwelling Catheter - Exam The patient is a 70 year-old female who is in no acute distress. She arouses easily but falls back asleep quickly. Abdomen is soft and nontender. Chest has good excursion.. Incision site is clean dry and intact. No erythema or purulent drainage. Extremities has not had neurological change from prior to surgery. She sustained dorsiflexion and plantar flexion and EHL function. She has good foot and ankle motion. Bilateral calves are soft and nontender. Neurological and circulatory status is intact. - Labs CBC & Chem 7: 11/10/20 07:23 11/10/20 07:23 Labs: Abnormal Lab Results - Last 24 Hours (Table) 11/10/20 11/11/20 Range/Units 07:23 08:08 WBC 13.08 H (4.50-10.00) X 10*3/uL RBC 4.02 L (4.10-5.20) X 10*6/uL Hgb 9.4 L (12.0-15.0) g/dL Hct 31.4 L (37.2-46.3) % MCV 78.1 L (80.0-97.0) fL MCH 23.4 L (27.0-32.0) pg MCHC 29.9 L (32.0-37.0) g/dL RDW 16.4 H (11.5-14.5) % Immature Gran # 0.07 H (0.00-0.04) X 10*3/uL Neutrophils # 10.81 H (1.80-7.70) X 10*3/uL POC Glucose (mg/dL) 129 H (75-99) mg/dL Assessment and Plan (1) S/P lumbar fusion Current Visit: Yes Status: Acute Code(s): Z98.1 - ARTHRODESIS STATUS SNOMED Code(s): 69799922345392 (2) Seizure disorder Current Visit: No Status: Acute Code(s): G40.909 - EPILEPSY, UNSP, NOT INTRACTABLE, WITHOUT STATUS EPILEPTICUS SNOMED Code(s): 514174300 Plan: 1. Continue pain control with Dilaudid due to her multiple allergies. 2. May discontinue salinas catheter today if ambulating 3. Continue physical therapy and ambulation 4. Anticipate discharge home in the next 1-2 days 5. The patient will be evaluated by Dr. Marks today as well.
--- NOTE | 2020-11-11 10:25 | P.PN ---
Progress Note - Text Progress Note Date: 11/11/20 Postoperative day #3 Patient is seen and examined today at bedside. The patient has some pain around the surgical site as expected. Pain is being controlled with medication.She is a bit lethargic today but she will answer questions appropriately and follow commands. She has been able to get up to have a bowel movement. She is not planning of any headaches. She is not complaining of new numbness tingling. She has some soreness at her back. Physical Exam Afebrile with stable vital signs Abdomen is soft nontender. Chest has good excursion deep and space expiration The incision site is clean dry and intact. No erythema there is no purulence. Extremities have not had neurologic change from prior to surgery. Calves and thighs were soft nontender without evidence of DVT. Assessment/Plan Postoperative day #3 status post minimally invasive decompression fusion all 34 L4 5 for her spondylolisthesis with spinal stenosis No evidence of any spinal headaches or dural leak Patient is progressing as expected from the surgery. she is lethargic I think she is somewhat overmedicated with her sleeping medications and we will hold off on those for now. Her pain is adequately controlled. She has great difficulty with multiple oral medications but we will see if she is able to mobilize with limited meds. She needs to have her Lion removed today. She has been able have a bowel movement. If she makes progress she could be considered for discharge home tomorrow however if she is not mobilizing well she may be a candidate for fpc. We will have case management see her We will continue to increase the patient's mobilization with therapy. We will continue pain control with oral or IV medications. We'll continue to follow patient closely.
--- NOTE | 2020-11-11 11:38 | P.PN ---
Subjective Patient is admitted for a decompression and fusion of L4-5 and L3-4. Patient is still having a significant tobacco pain because of which her hospitalization is being continued. Patient does have leukocytosis doesn't have any fever chills. 11/11/2020 Patient is significant be drowsy today because of multiple medications That can induce sleepiness or drowsiness and lethargy. Cutting down the dose of scheduled Flexeril, discontinued Ambien, discontinued Valium instructed nursing staff to avoid opiates until she is bit more awake. Constitutional: Denied any fatigue denied any fever. Cardio vascular: denied any chest pain, palpitations Gastrointestinal denied any nausea vomiting Pulmonary: Denied any shortness of breath cough Neurologic denied any new focal deficits All inpatient medications were reviewed and appropriate changes in these medications as dictated in the interval history and assessment and plan. PHYSICAL EXAMINATION: GENERAL: The patient is alert and oriented x3, not in any acute distress. Well developed, well nourished. HEENT: Pupils are round and equally reacting to light. EOMI. No scleral icterus. No conjunctival pallor. Normocephalic, atraumatic. No pharyngeal erythema. No thyromegaly. CARDIOVASCULAR: S1 and S2 present. No murmurs, rubs, or gallops. PULMONARY: Chest is clear to auscultation, no wheezing or crackles. ABDOMEN: Soft, nontender, nondistended, normoactive bowel sounds. No palpable organomegaly. MUSCULOSKELETAL: Deferred to orthopedic surgery EXTREMITIES: No cyanosis, clubbing, or pedal edema. NEUROLOGICAL: Gross neurological examination did not reveal any focal deficits. SKIN: No rashes. Assessment and plan -Status post decompression laminectomy of lower lumbar spine, be continue with PT and OT pain management as per primary service -Toxic encephalopathy secondary to medications as mentioned above -Hypertension: May not need amlodipine was be discontinued -Depression -Leukocytosis reactive secondary to surgery no clinical evidence of infection at this time -Seizure disorder -Chronic intermittent asthma without any acute exacerbation DVT prophylaxis: As per primary service Objective - Vital Signs Vital signs: Vital Signs Temp 97.6 F 11/11/20 07:51 Pulse 86 11/11/20 07:51 Resp 16 11/11/20 07:51 BP 133/77 11/11/20 07:51 Pulse Ox 91 L 11/11/20 07:51 Intake & Output 11/10/20 11/11/20 11/11/20 18:59 06:59 18:59 Intake Total 1080 1080 Output Total 500 700 Balance 580 380 Intake: Oral 1080 1080 Output: Urine 500 700 Other: Voiding Method Indwelling Catheter Indwelling Catheter - Labs CBC & Chem 7: 11/10/20 07:23 11/10/20 07:23 Labs: Abnormal Lab Results - Last 24 Hours (Table) 11/11/20 Range/Units 08:08 POC Glucose (mg/dL) 129 H (75-99) mg/dL
[2020-11-11] MEDS: HYDROmorphone 1 MG/ML 1 ML SYRINGE IVP PRN (22:20)
[2020-11-11] MEDS: buPROPion XL 150 MG TAB.ER.24H PO SCH (22:22)
[2020-11-12] MEDS: ACETAMINOPHEN TAB 500 MG TAB PO SCH ×4 (05:08→20:24)
[2020-11-12] MEDS: LEVOTHYROXINE 50 MCG TAB PO SCH (05:11)
[2020-11-12] MEDS: CITALOPRAM HYDROBROMIDE 20 MG TAB PO SCH (07:32)
[2020-11-12] MEDS: carvediloL 3.125 MG TAB PO SCH ×2 (07:33→17:21)
[2020-11-12] MEDS: levETIRAcetam 500 MG TAB PO SCH ×2 (07:33→20:25)
[2020-11-12] MEDS: POTASSIUM CHLORIDE ER 20 MEQ TAB.ER PO SCH ×2 (07:33→20:24)
[2020-11-12] MEDS: BACLOFEN 10 MG TAB PO SCH ×2 (07:33→20:25)
[2020-11-12] MEDS: PANTOPRAZOLE 40 MG TABLET PO SCH (07:33)
[2020-11-12] MEDS: HYDROmorphone 1 MG/ML 1 ML SYRINGE IVP PRN ×2 (07:34→15:28)
[2020-11-12] MEDS: IPRATROPIUM-ALBUTEROL 3 ML NEB INHALATION SCH ×4 (08:04→19:04)
--- NOTE | 2020-11-12 08:45 | P.PN ---
Subjective Progress Note Date: 11/12/20 Patient is admitted for a decompression and fusion of L4-5 and L3-4. Patient is still having a significant tobacco pain because of which her hospitalization is being continued. Patient does have leukocytosis doesn't have any fever chills. 11/11/2020 Patient is significant be drowsy today because of multiple medications That can induce sleepiness or drowsiness and lethargy. Cutting down the dose of sc heduled Flexeril, discontinued Ambien, discontinued Valium instructed nursing staff to avoid opiates until she is bit more awake. 11/12/2020 Patient is much more alert today, she is lucid, oriented 3 carrying on an appropriate conversation. Suspect drowsiness most likely due to polypharmacy, Flexeril was decreased, Ambien discontinued She is hemodynamically stable, saturating above 90% on room air. Afebrile. Constitutional: Denied any fatigue denied any fever. Cardio vascular: denied any chest pain, palpitations Gastrointestinal denied any nausea vomiting Pulmonary: Denied any shortness of breath cough Neurologic denied any new focal deficits All inpatient medications were reviewed and appropriate changes in these medications as dictated in the interval history and assessment and plan. PHYSICAL EXAMINATION: GENERAL: The patient is alert and oriented x3, not in any acute distress. Well developed, well nourished. HEENT: Pupils are round and equally reacting to light. EOMI. No scleral icterus. No conjunctival pallor. Normocephalic, atraumatic. No pharyngeal erythema. No thyromegaly. CARDIOVASCULAR: S1 and S2 present. No murmurs, rubs, or gallops. PULMONARY: Chest is clear to auscultation, no wheezing or crackles. ABDOMEN: Soft, nontender, nondistended, normoactive bowel sounds. No palpable organomegaly. MUSCULOSKELETAL: Deferred to orthopedic surgery EXTREMITIES: No cyanosis, clubbing, or pedal edema. NEUROLOGICAL: Gross neurological examination did not reveal any focal deficits. SKIN: No rashes. Assessment and plan -Status post decompression laminectomy of lower lumbar spine, be continue with PT and OT pain management as per primary service -Toxic encephalopathy secondary to medications as mentioned above: Improved, much more alert, Ambien discontinued, recommend he sedating medication judiciously. -Hypertension: May not need amlodipine was be discontinued -Depression -Leukocytosis reactive secondary to surgery no clinical evidence of infection at this time -Seizure disorder -Chronic intermittent asthma without any acute exacerbation DVT prophylaxis: As per primary service Objective - Vital Signs Vital signs: Vital Signs Temp 98.2 F 11/12/20 07:43 Pulse 76 11/12/20 08:15 Resp 16 11/12/20 07:43 BP 131/75 11/12/20 07:43 Pulse Ox 97 11/12/20 07:43 Intake & Output 11/11/20 11/12/20 11/12/20 18:59 06:59 18:59 Other: Voiding Method Indwelling Catheter # Voids 1 3 - Labs CBC & Chem 7: 11/10/20 07:23 11/10/20 07:23
--- NOTE | 2020-11-12 09:20 | P.PN ---
Subjective Progress Note Date: 11/12/20 Principal diagnosis: Status post L3-4 and L4-5 minimally invasive posterior lateral decompression and fusion with transforaminal lumbar interbody fusion with incidental durotomy The patient is a pleasant 70-year-old female who is seen and examined at the bedside following minimally invasive posterior lateral decompression and fusion performed Friday. The patient was evaluated while sitting in the recliner chair at the beside today and is more alert. She did have a mild generalized headache all day 3 days ago did improve with Tylenol. No headache today. She does have ALLERGIES to multiple pain medications but has been able to take Dilaudid IV without significant difficulty. She has been able take baclofen without difficulty. Patient states pain has been adequately controlled this morning. Patient is eating without difficulty. Her Lion catheter was removed. She is being seen by medicine for her other medical diagnoses including hypertension, anxiety, history of shortness of breath, and depression. The patient is thinking she may need rehab instead of going home. Objective - Vital Signs Vital signs: Vital Signs Temp 98.2 F 11/12/20 07:43 Pulse 76 11/12/20 08:15 Resp 16 11/12/20 07:43 BP 131/75 11/12/20 07:43 Pulse Ox 97 11/12/20 07:43 Intake & Output 11/11/20 11/12/20 11/12/20 18:59 06:59 18:59 Other: Voiding Method Indwelling Catheter Toilet # Voids 1 3 - Exam The patient is a 70 year-old female who is in no acute distress. She is alert and oriented x3. Abdomen is soft and nontender. Chest has good excursion.. Incision site is clean dry and intact. No erythema or purulent drainage. Extremities has not had neurological change from prior to surgery. She sustained dorsiflexion and plantar flexion and EHL function. She has good foot and ankle motion. Bilateral calves are soft and nontender. Neurological and circulatory status is intact. - Labs CBC & Chem 7: 11/10/20 07:23 11/10/20 07:23 Assessment and Plan (1) S/P lumbar fusion Current Visit: Yes Status: Acute Code(s): Z98.1 - ARTHRODESIS STATUS SNOMED Code(s): 71386365990878 (2) Seizure disorder Current Visit: No Status: Acute Code(s): G40.909 - EPILEPSY, UNSP, NOT INTRACTABLE, WITHOUT STATUS EPILEPTICUS SNOMED Code(s): 860677910 Plan: 1. Continue pain control with Tylenol and Dilaudid due to her multiple allergies. 2. Continue physical therapy and ambulation 3. Case management and social work consulted for probable skilled rehab placement 4. Anticipate discharge home in the next 1-2 days
[2020-11-12] MEDS: buPROPion XL 150 MG TAB.ER.24H PO SCH (20:25)
[2020-11-13] MEDS: LEVOTHYROXINE 50 MCG TAB PO SCH (05:42)
[2020-11-13] MEDS: ACETAMINOPHEN TAB 500 MG TAB PO SCH ×4 (05:42→23:10)
[2020-11-13] MEDS: IPRATROPIUM-ALBUTEROL 3 ML NEB INHALATION SCH ×4 (07:14→20:46)
[2020-11-13] MEDS: BACLOFEN 10 MG TAB PO SCH ×2 (08:26→20:08)
[2020-11-13] MEDS: POTASSIUM CHLORIDE ER 20 MEQ TAB.ER PO SCH ×2 (08:26→20:08)
[2020-11-13] MEDS: PANTOPRAZOLE 40 MG TABLET PO SCH (08:26)
[2020-11-13] MEDS: levETIRAcetam 500 MG TAB PO SCH ×2 (08:27→20:08)
[2020-11-13] MEDS: carvediloL 3.125 MG TAB PO SCH ×2 (08:27→16:41)
[2020-11-13] MEDS: CITALOPRAM HYDROBROMIDE 20 MG TAB PO SCH (08:27)
[2020-11-13] MEDS: diazePAM 5 MG TAB PO PRN ×2 (10:41→16:41)
--- NOTE | 2020-11-13 10:47 | P.DS ---
Providers Date of admission: 11/08/20 16:49 Expected date of discharge: 11/13/20 Attending physician: Sarah Marks Consults: 11/08/20 16:13 Consult Physician Routine Consulting Provider: Cade Menendez Reason/Comments: Medical management Do you want consulting provider notified?: Yes Primary care physician: Cade Menendez - Discharge Diagnosis(es) (1) Low back pain Current Visit: Yes Status: Acute (2) Spondylolisthesis at L4-L5 level Current Visit: Yes Status: Acute (3) Lumbar degenerative disc disease Current Visit: Yes Status: Acute (4) Radiculopathy with lower extremity symptoms Current Visit: Yes Status: Acute (5) Lower extremity weakness Current Visit: Yes Status: Acute (6) Lumbar facet arthropathy Current Visit: Yes Status: Acute (7) Anxiety Current Visit: Yes Status: Acute (8) Depression Current Visit: Yes Status: Acute (9) History of shortness of breath Current Visit: Yes Status: Acute (10) S/P lumbar fusion Current Visit: Yes Status: Acute (11) Spinal stenosis, lumbar Current Visit: Yes Status: Acute (12) Hypertension Current Visit: No Status: Acute Hospital Course: This is a pleasant 70-year-old female who presented with L4-5 spondylolisthesis, L3-4 and L4-5 spinal canal stenosis, lumbar degenerative disc disease, lower extremity radiculopathy, lower extremity weakness, and lumbar facet arthrosis who failed outpatient conservative therapy. She was admitted for an L3-4 and L4-5 minimally invasive posterior lateral decompression and fusion with transforaminal lumbar interbody fusion. She is having incidental durotomy during surgical intervention. She has continued to improve postoperatively. She is not experiencing any headaches. She has been able to increase her mobility and ambulation with physical therapy. She does feel she'll be willing to be discharged to a rehabilitation facility. She feels she is ready for discharge today. Patient has been discussed with case management is working on the approval process for discharge to a rehabilitation facility. The patient tolerated the procedure well and has continued to improve. Condition on day of discharge stable. Patient will be discharged to a rehabilitation facility pending approval. Patient was cleared preoperatively for surgery by Dr. Menendez. Patient currently denies any nausea, vomiting, fever, or chills. Patient is eating and voiding freely without difficulty. Patient may shower Optifoam dressing intact. Patient may remove Optifoam dressing in 3 days and shower without a dressing at that time. Patient should refrain from driving until at least after their first follow-up appointment in the office. Patient should avoid excessive bending, lifting, and twisting; no lifting greater than 10 pounds. Patient should avoid excessive neck flexion, extension, rotation, and lateral sidebending; no overhead lifting; no lifting greater than 10 pounds. MAPS was previously reviewed. An "Opiod Start Talking" Form has been signed and placed in the patient's chart. A prescription has been written for Dilaudid 2 mg 1 tab every 4-6 hours as needed for pain, dispense #28. Patient is also given a prescription for baclofen 10 mg 1 tablet twice a day as needed for muscle spasm, dispensed #45. [facility] within the [facility]. Given the patient's discharge status to a rehabilitation facility, we will print and signed these prescriptions for the rehabilitation facility. Patient's other medical diagnoses include hypertension, anxiety, depression, and history of shortness of breath Patient will need to be cleared by medicine prior to discharge to rehabilitation facility. Medicine will plan to do the patient's med rec prior to discharge. Physical Exam on day of discharge: Patient is awake, alert, and oriented 3 and is answering questions appropriately Vital signs stable Good chest excursion with deep inspiration and expiration Abdomen soft nontender No signs or symptoms of DVT; no calf pain Extensor hallucis longus, plantarflexion, and dorsiflexion positive sustained bilateral lower extremities Incision sites are clean, dry, and intact; no erythema, purulence, or signs of infection Optifoam dressing intact Pneumatic cuffs intact bilateral lower extremities Procedures: L3-4 and L4-5 minimally invasive posterior lateral decompression and fusion with transforaminal lumbar interbody fusion Patient Condition at Discharge: Stable Plan - Discharge Summary Discharge Rx Participant: Yes New Discharge Prescriptions: New Ipratropium-Albuterol Nebulize [Duoneb 0.5 mg-3 mg/3 ml Soln] 3 ml INHALATION RT-QID ml Ipratropium-Albuterol Nebulize [Duoneb 0.5 mg-3 mg/3 ml Soln] 3 ml INHALATION Q4H PRN ml PRN Reason: Shortness Of Breath Or Wheezing Melatonin 5 mg PO HS #1 tablet HYDROmorphone [Dilaudid] 2 mg PO Q4-6H PRN 7 Days #28 tab PRN Reason: Pain Baclofen [Lioresal] 10 mg PO BID PRN #45 tablet PRN Reason: Muscle Spasm Continue Potassium Chloride ER [K-Dur 20] 20 meq PO BID Omeprazole 20 mg PO BID Meclizine [Antivert] 25 mg PO TID PRN PRN Reason: Vertigo Levothyroxine Sodium [Synthroid] 50 mcg PO QAM buPROPion XL [Wellbutrin XL] 150 mg PO HS carvediloL [Coreg] 3.125 mg PO BID levETIRAcetam [Keppra] 1,000 mg PO BID Citalopram Hydrobromide [CeleXA] 40 mg PO QAM Baclofen 10 mg PO BID diphenhydrAMINE [Benadryl] 25 mg PO HS PRN PRN Reason: Allergy Symptoms & itching J & J Charis Mcdermott. 1 dose IM ONCE Discontinued amLODIPine [Norvasc] 5 mg PO QAM Zolpidem [Ambien] 10 mg PO HS LORazepam [Ativan] 0.5 mg PO HS Albuterol Inhaler (Mhu) [Ventolin Hfa Inhaler (Mhu)] 2 puff INHALATION RT-Q6H PRN PRN Reason: Dyspnea Ibuprofen [Motrin] 800 mg PO TID Discharge Medication List Levothyroxine Sodium [Synthroid] 50 mcg PO QAM 11/11/17 [History] Meclizine [Antivert] 25 mg PO TID PRN 11/11/17 [History] Omeprazole 20 mg PO BID 11/11/17 [History] Potassium Chloride ER [K-Dur 20] 20 meq PO BID 11/11/17 [History] buPROPion XL [Wellbutrin XL] 150 mg PO HS 11/11/17 [History] carvediloL [Coreg] 3.125 mg PO BID 11/11/17 [History] levETIRAcetam [Keppra] 1,000 mg PO BID 12/11/17 [History] Citalopram Hydrobromide [CeleXA] 40 mg PO QAM 06/23/18 [History] Baclofen 10 mg PO BID 07/13/19 [History] diphenhydrAMINE [Benadryl] 25 mg PO HS PRN 07/13/19 [History] J & J Covid Vacine. 1 dose IM ONCE 11/02/20 [History] HYDROmorphone [Dilaudid] 2 mg PO Q4-6H PRN 7 Days #28 tab 11/09/20 [Rx] Baclofen [Lioresal] 10 mg PO BID PRN #45 tablet 11/10/20 [Rx] Ipratropium-Albuterol Nebulize [Duoneb 0.5 mg-3 mg/3 ml Soln] 3 ml INHALATION Q4H PRN ml 11/13/20 [Rx] Ipratropium-Albuterol Nebulize [Duoneb 0.5 mg-3 mg/3 ml Soln] 3 ml INHALATION RT-QID ml 11/13/20 [Rx] Melatonin 5 mg PO HS #1 tablet 11/13/20 [Rx] Follow up Appointment(s)/Referral(s): Sarah Marks DO [Doctor of Osteopathic Medicine] - 2 Weeks Cade Menendez DO [Primary Care Provider] - 1 Week (after dc from [facility]) Activity/Diet/Wound Care/Special Instructions: Keep site clean. May shower with waterproof Optifoam intact. Do not soak in a tub. After 72 hours postoperatively, patient may remove dressing and then may shower with area uncovered. Leave glue intact and allow it to fray off on its own. May ambulate as tolerated. Avoid heavy or rigorous activity. No repetitive bending twisting or lifting. Take medications as prescribed. No overhead work. Discharge Disposition: TRANSFER TO SNF/ECF
[2020-11-13] MEDS: buPROPion XL 150 MG TAB.ER.24H PO SCH (20:08)
[2020-11-14] MEDS: ACETAMINOPHEN TAB 500 MG TAB PO SCH ×2 (05:37→11:55)
[2020-11-14] MEDS: LEVOTHYROXINE 50 MCG TAB PO SCH (05:38)
[2020-11-14 08:04] VITALS: RESP 18
[2020-11-14] MEDS: BACLOFEN 10 MG TAB PO SCH (08:06)
[2020-11-14] MEDS: CITALOPRAM HYDROBROMIDE 20 MG TAB PO SCH (08:06)
[2020-11-14] MEDS: POTASSIUM CHLORIDE ER 20 MEQ TAB.ER PO SCH (08:06)
[2020-11-14] MEDS: carvediloL 3.125 MG TAB PO SCH (08:06)
[2020-11-14] MEDS: PANTOPRAZOLE 40 MG TABLET PO SCH (08:06)
[2020-11-14] MEDS: levETIRAcetam 500 MG TAB PO SCH (08:06)
[2020-11-14] MEDS: IPRATROPIUM-ALBUTEROL 3 ML NEB INHALATION SCH ×3 (08:15→15:56)
--- NOTE | 2020-11-14 08:43 | P.PN ---
Progress Note - Text Progress Note Date: 11/14/20 Orthopedic spine: History of present illness: There has been no change in the patient's symptoms as compared to yesterday. This is a pleasant 70-year-old female who presented with L4-5 spondylolisthesis, L3-4 and L4-5 spinal canal stenosis, lumbar degenerative disc disease, lower extremity radiculopathy, lower extremity weakness, and lumbar facet arthrosis who failed outpatient conservative therapy. She was admitted for an L3-4 and L4-5 minimally invasive posterior lateral decompression and fusion with transforaminal lumbar interbody fusion. She is having incidental durotomy during surgical intervention. She has continued to improve postoperatively. She is not experiencing any headaches. She has been able to increase her mobility and ambulation with physical therapy. She does feel she'll be willing to be discharged to a rehabilitation facility. She feels she is ready for discharge today. Patient has been discussed with case management who is working on the approval process for discharge to a rehabilitation facility. The patient was unable to obtain approval yesterday but this will most likely be approved today and she will be ready for discharge. The patient tolerated the procedure well and has continued to improve. Condition on day of discharge stable. Patient was cleared preoperatively for surgery by Dr. Menendez. Patient currently denies any nausea, vomiting, fever, or chills. Patient is eating and voiding freely without difficulty. Dressings over the surgical sites have been removed. Patient may shower without dressings intact at this time. Patient should keep glue intact over the incision sites and allow it to fall off naturally. Patient should refrain from driving until at least after their first follow-up appointment in the office. Patient should avoid excessive bending, lifting, and twisting; no lifting greater than 10 pounds. MAPS was previously reviewed. An "Opiod Start Talking" Form has been signed and placed in the patient's chart. A prescription has been written for Dilaudid 2 mg 1 tab every 4-6 hours as needed for pain, dispense #28. Patient is also given a prescription for baclofen 10 mg 1 tablet twice a day as needed for muscle spasm, dispensed #45. These medications have been sent to the [facility] pharmacy located within the [facility]. Given the patient's discharge status to a rehabilitation facility, we will print and signed these prescriptions for the rehabilitation facility. Patient's other medical diagnoses include hypertension, anxiety, depression, and history of shortness of breath Patient will need to be cleared by medicine prior to discharge to rehabilitation facility. Medicine will plan to do the patient's med rec prior to discharge. Physical Exam on day of discharge: Patient is awake, alert, and oriented 3 and is answering questions appropriately Vital signs stable Good chest excursion with deep inspiration and expiration Abdomen soft nontender No signs or symptoms of DVT; no calf pain Extensor hallucis longus, plantarflexion, and dorsiflexion positive sustained bilateral lower extremities Incision sites are clean, dry, and intact; no erythema, purulence, or signs of infection Dressings are removed during physical examination No active drainage from the surgical sites No significant bruising around the surgical sites Pneumatic cuffs intact bilateral lower extremities Assessment: Status post L3-4 and L4-5 minimally invasive posterior lateral decompression and fusion with transforaminal lumbar interbody fusion Incidental durotomy Low back pain L4-5 spondylolisthesis Lumbar degenerative disc disease Lower extremity radiculopathy Lower extremity weakness Lumbar facet arthrosis L3-4 and L4 to 5 spinal canal stenosis Mild generalized headache yesterday Hypertension Anxiety History of shortness of breath Depression Plan: 1. Patient is currently planning for discharge to a rehabilitation facility today pending insurance approval. We discussed she may continue work with physical therapy to increase her mobility and ambulation. Her admission to the hospital she may continue to receive Dilaudid and baclofen as prescribed as needed for pain control. Dressings have been removed over the surgical sites. Patient may shower without dressings intact at this time. Patient is cleared for discharge from an orthopedic spine standpoint. We're planning for discharge today. Patient can follow-up with [facility] PA-C or Dr. Toi Marks at [facility] in 2-3 weeks following discharge. 2. Patient will continue be seen and examined by medicine for patient's other medical diagnoses including hypertension, anxiety, depression, and history of shortness of breath
[2020-11-14] MEDS: diazePAM 5 MG TAB PO PRN (11:56)
[2020-11-14 14:41] VITALS: BP 138/68; PULSE 64; TEMP 98.2
--- NOTE | 2020-11-14 17:28 | P.PN ---
Subjective Progress Note Date: 11/13/20 - Chief Complaint Chronic low back pain, radiculopathy, degenerative disc disease, spinal sascha - History of Present Illness This is a 70-year-old female with past medical history of permanent pacemaker, hypertension, anxiety, gastroesophageal reflux disease, GI bleed, osteoarthritis, cholecystectomy, lap band removal, colectomy, colitis, chronic low back pain with Spondylolisthesis,severe spinal stenosis, lower extremity radiculopathy, status post decompression, fusion L4 5 and L3 4. Tolerated procedure well. Reports last night had significant pain which is better controlled this morning. Multiple ALLERGIES but tolerating IV Dilaudid. Lying flat as per orthopedic instruction until later this afternoon, with no headache. Remains on complete bed rest due to incidental durotomy occurring during surgery. Denies lightheadedness, dizziness or focal deficits. No seizure activity. Denies chest pain, palpitations or shortness of breath. VSS, maintaining O2 sats in the mid 90s on 2 L nasal cannula. Afebrile. Labs pending. 11/14/2020 significant clinical improvement. Pain controlled. Good diet intake with no nausea vomiting or diarrhea. Passing flatus. Denies chest pain, palpitations or shortness of breath. Afebrile. Objective - Vital Signs Vital signs: Vital Signs Temp 98.1 F 11/13/20 14:00 Pulse 68 11/13/20 15:58 Resp 17 11/13/20 14:00 BP 142/81 11/13/20 14:00 Pulse Ox 96 11/13/20 14:00 Intake & Output 11/12/20 11/13/20 11/13/20 18:59 06:59 18:59 Other: Voiding Method Toilet Toilet # Voids 4 5 - Exam GENERAL: Sitting up in bed, no acute distress HEENT: Head is atraumatic, normocephalic. Pupils are equal, round, and reactive to light. Sclerae anicteric. Conjunctivae are clear. Oral mucosa moist .Neck is supple. RESPIRATORY: Clear to auscultation. No wheezes, rales, or rhonchi. No use of accessory muscles. CARDIOVASCULAR: Regular rate and rhythm. S1 and S2 noted. No systolic or diastolic murmur auscultated. No JVD noted GASTROINTESTINAL: Abdomen soft, nondistended, nontender. Normal active bowel sounds auscultated x 4 quadrants. INTEGUMENTARY: No cyanosis. No jaundice. EXTREMITIES: 2+ peripheral pulses. No evidence of peripheral edema. No calf tenderness noted. NEUROLOGIC: Cranial nerves II-XII intact. PSYCHIATRIC: Awake, alert, and oriented X 3. Appropriate affect. Intact judgement and insight. - Labs CBC & Chem 7: 11/10/20 07:23 11/10/20 07:23 Assessment and Plan Assessment: Chronic low back pain with Spondylolisthesis,severe spinal stenosis, lower extremity radiculopathy, status post decompression, fusion L4 5 and L3 4. Incidental durotomy Seizure disorder Chronic intermittent asthma, controlled Hypothyroidism Depression Hypertension Plan: Continue on current medication regime, monitoring and symptomatic treatment. Significant clinical improvement. Pain management/anticoagulation as per primary . Maintained aggressive pulmonary toileting with incentive spirometer reinforced. Discharge planning in progress for today to subacute rehab pending authorization. The impression and plan of care has been dictated as directed. : I performed a history and examination of this patient, discussed the same with the dictator. I agree with the dictator's note ,documented as a scribe. Any additional findings or plans will be noted.
--- NOTE | 2020-11-14 17:32 | P.PN ---
Subjective Progress Note Date: 11/14/20 - Chief Complaint Chronic low back pain, radiculopathy, degenerative disc disease, spinal sascha - History of Present Illness This is a 70-year-old female with past medical history of permanent pacemaker, hypertension, anxiety, gastroesophageal reflux disease, GI bleed, osteoarthritis, cholecystectomy, lap band removal, colectomy, colitis, chronic low back pain with Spondylolisthesis,severe spinal stenosis, lower extremity radiculopathy, status post decompression, fusion L4 5 and L3 4. Tolerated procedure well. Reports last night had significant pain which is better controlled this morning. Multiple ALLERGIES but tolerating IV Dilaudid. Lying flat as per orthopedic instruction until later this afternoon, with no headache. Remains on complete bed rest due to incidental durotomy occurring during surgery. Denies lightheadedness, dizziness or focal deficits. No seizure activity. Denies chest pain, palpitations or shortness of breath. VSS, maintaining O2 sats in the mid 90s on 2 L nasal cannula. Afebrile. Labs pending. 11/13/2020 significant clinical improvement. Pain controlled. Good diet intake with no nausea vomiting or diarrhea. Passing flatus. Denies chest pain, palpitations or shortness of breath. Afebrile. 11/14/2020 no overnight events. Authorization received for subacute rehab today. Pain controlled. Denies chest pain, palpitations, shortness of breath. Afebrile. Objective - Vital Signs Vital signs: Vital Signs Temp 98.2 F 11/14/20 14:00 Pulse 64 11/14/20 14:00 Resp 18 11/14/20 14:00 BP 138/68 11/14/20 14:00 Pulse Ox 93 L 11/14/20 14:00 Intake & Output 11/13/20 11/14/20 11/14/20 18:59 06:59 18:59 Other: Voiding Method Toilet # Voids 5 2 2 - Exam GENERAL: Alert and oriented 3, Sitting up in chair, no acute distress HEENT: Head is atraumatic, normocephalic. Pupils are equal, round, Conjunctivae are clear. Oral mucosa moist .Neck is supple. RESPIRATORY: Clear to auscultation. No wheezes, rales, or rhonchi. No use of accessory muscles. CARDIOVASCULAR: Regular rate and rhythm. S1 and S2 noted. No systolic or diastolic murmur auscultated. No JVD noted GASTROINTESTINAL: Abdomen soft, nondistended, nontender. Normal active bowel sounds auscultated x 4 quadrants. EXTREMITIES: 2+ peripheral pulses. No evidence of peripheral edema. No calf tend erness noted. NEUROLOGIC: Cranial nerves II-XII intact. - Labs CBC & Chem 7: 11/10/20 07:23 11/10/20 07:23 Assessment and Plan Assessment: Chronic low back pain with Spondylolisthesis,severe spinal stenosis, lower extremity radiculopathy, status post decompression, fusion L4 5 and L3 4. Incidental durotomy Seizure disorder Chronic intermittent asthma, controlled Hypothyroidism Depression Hypertension Plan: Continue on current medication regime, monitoring and symptomatic treatment. Significant clinical improvement. Pain management/anticoagulation as per primary . Aggressive pulmonary toileting with incentive spirometer reinforced. Discharge planning in progress for today to subacute rehab. Follow-up with PCP, Dr. Menendez 1 week after discharge from [facility]. The impression and plan of care has been dictated as directed. : I performed a history and examination of this patient, discussed the same with the dictator. I agree with the dictator's note ,documented as a scribe. Any additional findings or plans will be noted.
--- NOTE | 2020-11-30 07:18 | CDI ---
Documentation Clarification Form Date: 11/30/20 From: Samantha Esquivel Admit Date: 11/08/2020 04:49:00 PM Patient Name: Emily Torres Visit Number: [id number] Discharge Date: 11/14/2020 04:48:00 PM ATTENTION: The Clinical Documentation Specialists (CDI) and [facility] Coding Staff appreciate your assistance in clarifying documentation. Please respond to the clarification below the line at the bottom and electronically sign. The CDI & [facility] Coding staff will review the response and follow-up if needed. Please note: Queries are made part of the Legal Health Record. If you have any questions, please contact the author of this message via ITS. Dr. Sarah Marks, The patients principal diagnosis the diagnosis that was chiefly responsible for the admission - has not been clearly identified and clarification is requested. The patient presented for spinal surgery and was boarded as an Outpatient. During the procedure a pinhole size incidental durotomy at L3-4 with minimal drainage, closed with Tisseel was encountered. Patient was then changed to Inpatient after surgery. In your professional opinion, can you please clarify which diagnosis, after study, was the reason chiefly responsible for the Inpatient admission? [ x ] Durotomy [ x ] Spinal stenosis, lumbar region [ ] Other, please specify [ ] Unable to determine With patients severe spinal stenosis, multihour surgery of lumbar decompression and fusion, as well as her incidental durotomy at hte time of surgery, I felt the need for inpatient admission. Even if she did not have a durotomy, I feel that she would have needed inpatient admission given her diagnosis and her lumbar spinal fusion surgery MTDD
== END 2020-11-14 16:48 | DRG 453 ==
LOC: OR 10:59 → 4SSUR 16:29
PROVIDERS: ADMIT Orthopaedic Surgery Orthopaedic Surgery of the Spine; ATTEND Orthopaedic Surgery Orthopaedic Surgery of the Spine
PROC: 4A11X4G Monitoring of Peripheral Nervous Electrical Activity, Intraoperative, External Approach (ICD-10-PCS; principal; 2020-11-08 12:15)
PROC: 0ST20ZZ Resection of Lumbar Vertebral Disc, Open Approach (ICD-10-PCS; principal; 2020-11-08 12:15)
PROC: 0SG1071 Fusion of 2 or more Lumbar Vertebral Joints with Autologous Tissue Substitute, Posterior Approach, Posterior Column, Open Approach (ICD-10-PCS; principal; 2020-11-08 12:15)
PROC: 0SG10AJ Fusion of 2 or more Lumbar Vertebral Joints with Interbody Fusion Device, Posterior Approach, Anterior Column, Open Approach (ICD-10-PCS; principal; 2020-11-08 12:15)
PROC: 00UT0KZ Supplement Spinal Meninges with Nonautologous Tissue Substitute, Open Approach (ICD-10-PCS; principal; 2020-11-08 12:15)
PROC: 07DS0ZZ Extraction of Vertebral Bone Marrow, Open Approach (ICD-10-PCS; principal; 2020-11-08 12:15)
DX: M48.061 Spinal stenosis, lumbar region without neurogenic claudication (principal); G92 Toxic encephalopathy; G97.41 Accidental puncture or laceration of dura during a procedure; E03.9 Hypothyroidism, unspecified; G40.909 Epilepsy, unspecified, not intractable, without status epilepticus; I73.9 Peripheral vascular disease, unspecified; M43.16 Spondylolisthesis, lumbar region; M47.26 Other spondylosis with radiculopathy, lumbar region; M51.16 Intervertebral disc disorders with radiculopathy, lumbar region; J45.20 Mild intermittent asthma, uncomplicated; H91.90 Unspecified hearing loss, unspecified ear; I10 Essential (primary) hypertension; E78.5 Hyperlipidemia, unspecified; F32.9 Major depressive disorder, single episode, unspecified; F41.9 Anxiety disorder, unspecified; Z68.32 Body mass index [BMI] 32.0-32.9, adult; E66.9 Obesity, unspecified; T48.1X5A Adverse effect of skeletal muscle relaxants [neuromuscular blocking agents], initial encounter; T42.6X5A Adverse effect of other antiepileptic and sedative-hypnotic drugs, initial encounter; T42.4X5A Adverse effect of benzodiazepines, initial encounter; D72.829 Elevated white blood cell count, unspecified; K21.9 Gastro-esophageal reflux disease without esophagitis; M19.90 Unspecified osteoarthritis, unspecified site; Z79.890 Hormone replacement therapy; Z79.1 Long term (current) use of non-steroidal anti-inflammatories (NSAID); Z79.899 Other long term (current) drug therapy; Z98.84 Bariatric surgery status; Z87.2 Personal history of diseases of the skin and subcutaneous tissue; Z96.653 Presence of artificial knee joint, bilateral; Z98.1 Arthrodesis status; Z87.19 Personal history of other diseases of the digestive system; Z95.0 Presence of cardiac pacemaker; Z90.49 Acquired absence of other specified parts of digestive tract; Z85.3 Personal history of malignant neoplasm of breast; Z90.13 Acquired absence of bilateral breasts and nipples; Z86.19 Personal history of other infectious and parasitic diseases; Z90.89 Acquired absence of other organs; Z98.890 Other specified postprocedural states; Y65.8 Other specified misadventures during surgical and medical care; Y92.234 Operating room of hospital as the place of occurrence of the external cause; Z88.1 Allergy status to other antibiotic agents; Z88.5 Allergy status to narcotic agent; Z88.2 Allergy status to sulfonamides; Z88.8 Allergy status to other drugs, medicaments and biological substances; Z91.018 Allergy to other foods; Z91.048 Other nonmedicinal substance allergy status; Z82.49 Family history of ischemic heart disease and other diseases of the circulatory system; Z80.1 Family history of malignant neoplasm of trachea, bronchus and lung; Z83.2 Family history of diseases of the blood and blood-forming organs and certain disorders involving the immune mechanism; Z82.3 Family history of stroke; Z80.41 Family history of malignant neoplasm of ovary
CPT/HCPCS: 36415; 72100; 80048; 85025; 86850; 86900; 86901; 94640; C1762

== ENCOUNTER 2020-11-24 21:04 | Observation (INO) | payer MEDICARE ==
--- NOTE | 2020-11-24 21:32 | ED ---
Fall HPI - General Chief Complaint: Fall Stated Complaint: Fall Time Seen by Provider: 11/24/20 21:09 Source: patient, EMS Mode of arrival: EMS - History of Present Illness Initial Comments: This patient is a 70-year-old woman who presents with complaint of having passed out, fallen and hit her head. The patient is at the rehabilitation facility, where she states tonight she had dropped something on the floor. She bent over to pick it up and when she stood back up she felt herself becoming lightheaded and then passed out. Patient states that she must a fallen backward she has a little bit of aching of the occiput of her head. Patient denies neck pain. She does have underlying seizure disorder but does not believe she had a seizure. Staff at the snf do not report any seizure activity. No incontinence. No reported postictal period. MD Complaint: fall -: minutes(s) Fall From: standing When Fall Occurred: just prior to arrival Fall Witnessed: yes, by living facility staff Place Fall Occurred: snf/SNF Loss of Consciousness: yes Prolonged Down Time?: no Symptoms Prior to Fall: lightheadedness Location: head Severity: moderate Quality: dull Associated Symptoms: denies - Related Data Home Medications Medication Instructions Recorded Confirmed Levothyroxine Sodium [Synthroid] 50 mcg PO DAILY 11/11/17 11/24/20 Meclizine [Antivert] 25 mg PO TID PRN 11/11/17 11/24/20 Omeprazole 20 mg PO BID 11/11/17 11/24/20 Potassium Chloride ER [K-Dur 20] 20 meq PO BID 11/11/17 11/24/20 buPROPion XL [Wellbutrin XL] 150 mg PO HS 11/11/17 11/24/20 carvediloL [Coreg] 3.125 mg PO BID 11/11/17 11/24/20 levETIRAcetam [Keppra] 1,000 mg PO BID 12/11/17 11/24/20 Citalopram Hydrobromide [CeleXA] 40 mg PO DAILY 06/23/18 11/24/20 diphenhydrAMINE [Benadryl] 25 mg PO HS PRN 07/13/19 11/24/20 Atorvastatin Calcium [Lipitor] 10 mg PO HS 11/24/20 11/24/20 Chlorhexidine Gluconate [Periogard] 15 ml DENTAL BID 11/24/20 11/24/20 Ibuprofen [Motrin] 800 mg PO Q8H PRN 11/24/20 11/24/20 LORazepam 0.5 mg PO DAILY PRN 11/24/20 11/24/20 Melatonin 5 mg PO HS PRN 11/24/20 11/24/20 Zolpidem Tartrate [Ambien] 10 mg PO HS PRN 11/24/20 11/24/20 Previous Rx's Medication Instructions Recorded Baclofen [Lioresal] 10 mg PO BID PRN #45 tablet 11/10/20 Allergies Allergy/AdvReac Type Severity Reaction Status Date / Time ciprofloxacin [From Cipro] Allergy Unknown Verified 11/24/20 23:38 ciprofloxacin HCl Allergy Unknown Verified 11/24/20 23:38 [From Cipro] codeine Allergy Rash/Hives Verified 11/24/20 23:38 hydrocodone bitartrate Allergy Rash/Hives Verified 11/24/20 23:38 [From Lortab] hydromorphone [From Dilaudid] Allergy Rash/Hives Verified 11/24/20 23:38 meperidine HCl [From Demerol] Allergy Rash/Hives Verified 11/24/20 23:38 morphine Allergy Rash/Hives Verified 11/24/20 23:38 propoxyphene napsylate Allergy Rash/Hives Verified 11/24/20 23:38 [From Darvocet-N 100] soy Allergy Anaphylaxis Verified 11/24/20 23:38 Sulfa (Sulfonamide Allergy Rash/Hives Verified 11/24/20 23:38 Antibiotics) tetracycline [Tetracycline] Allergy Rash/Hives Verified 11/24/20 23:38 tioconazole [From Monistat 1] Allergy Rash/Hives Verified 11/24/20 23:38 tramadol Allergy Rash/Hives. Verified 11/24/20 23:38 "THROAT CLOSING UP" hemp Allergy Rash/Hives Uncoded 11/24/20 21:19 Review of Systems ROS Statement: Those systems with pertinent positive or pertinent negative responses have been documented in the HPI. ROS Other: All systems not noted in ROS Statement are negative. Constitutional: Denies: fever, chills, weakness Eyes: Denies: eye pain, vision change ENT: Denies: epistaxis Respiratory: Denies: cough, dyspnea Cardiovascular: Reports: syncope. Denies: chest pain, palpitations, orthopnea, edema Gastrointestinal: Denies: abdominal pain, vomiting, diarrhea, melena, hematochezia Genitourinary: Denies: dysuria, hematuria Musculoskeletal: Denies: back pain Skin: Denies: rash Neurological: Reports: headache. Denies: weakness, numbness, confusion Past Medical History Past Medical History: Asthma, Cancer, GERD/Reflux, GI Bleed, Hearing Disorder / Deafness, Hyperlipidemia, Hypertension, Osteoarthritis (OA), Seizure Disorder, Thyroid Disorder Additional Past Medical History / Comment(s): Last seizure over 2yr ago. Hard of hearing. MENIERES. Hx bilateral breast cancer 20 yrs ago. Hx bowel obstruction FROM DIVERTICULTIS. colitis. Exercise Induced Asthma. History of Any Multi-Drug Resistant Organisms: ESBL Date of last positivie culture/infection: 01/08/18 MDRO Source:: ESBL URINE Past Surgical History: Appendectomy, Back Surgery, Bariatric Surgery, Bowel R esection, Breast Surgery, Cholecystectomy, Heart Catheterization, Hernia Repair, Joint Replacement, Pacemaker, Tonsillectomy Additional Past Surgical History / Comment(s): PACEMAKER. LAP BAND INSERTED & REMOVED. GASTRIC SLEEVE (2016). BILATERAL TOTAL KNEE REPLACEMENTS, CERVICAL FUSION (2-7). BOWEL RESECTION (DIVERTICULITIS). INCISIONAL HERNIA REPAIR SEVERAL HEART CATHS-NO STENTS. BILATERAL BREAST LUMPECTOMIES (CANCER). Past Anesthesia/Blood Transfusion Reactions: Previous Problems w/ Anesthesia Additional Past Anesthesia/Blood Transfusion Reaction / Comment(s): Blood transfusion X3 -no reaction. "Low BP with anesthesia if takes BP med AM of surgery." Type of Cardiac Device: Permanent Pacemaker Device Placement Date:: 10/12/17 Past Psychological History: Anxiety, Depression Smoking Status: Never smoker Past Alcohol Use History: None Reported Past Drug Use History: None Reported - Past Family History Mother Family Medical History: Pulmonary Embolus Additional Family Medical History / Comment(s): Multiple TIA's. Father Family Medical History: Cancer Additional Family Medical History / Comment(s): Lung Cancer. Sister(s) Family Medical History: Cancer, Deep Vein Thrombosis (DVT), Pulmonary Embolus Additional Family Medical History / Comment(s): OVARIAN CANCER. General Exam Limitations: no limitations General appearance: alert, in no apparent distress Head exam: Present: atraumatic, normocephalic, other (There is some mild tenderness near the occiput. No palpable deformity.) Eye exam: Present: normal appearance. Absent: scleral icterus, conjunctival injection ENT exam: Present: normal oropharynx Neck exam: Present: normal inspection, full ROM. Absent: tenderness Respiratory exam: Present: normal lung sounds bilaterally. Absent: respiratory distress, wheezes, rales, rhonchi, stridor, chest wall tenderness Cardiovascular Exam: Present: regular rate, normal rhythm, normal heart sounds. Absent: systolic murmur, diastolic murmur, rubs, gallop GI/Abdominal exam: Present: soft. Absent: distended, tenderness, guarding, rebound, rigid, mass Extremities exam: Present: normal inspection, normal capillary refill. Absent: pedal edema, calf tenderness Back exam: Present: normal inspection. Absent: CVA tenderness (R), CVA tenderness (L) Neurological exam: Present: alert, oriented X3, CN II-XII intact. Absent: motor sensory deficit Skin exam: Present: warm, dry, intact, normal color. Absent: rash Course Vital Signs 11/24/20 11/24/20 11/24/20 21:10 22:35 23:23 Temperature 97.7 F Pulse Rate 69 65 Respiratory 16 16 Rate Blood Pressure 168/79 139/73 Blood Pressure 143/77 [Left Arm Supine] Blood Pressure 147/84 [Sitting] Blood Pressure 119/86 [Standing] O2 Sat by Pulse 97 94 L Oximetry 11/24/20 23:39 Temperature 98.4 F Pulse Rate Respiratory Rate Blood Pressure Blood Pressure [Left Arm Supine] Blood Pressure [Sitting] Blood Pressure [Standing] O2 Sat by Pulse Oximetry Medical Decision Making - Lab Data Result diagrams: 11/24/20 21:56 11/24/20 21:58 Lab Results 11/24/20 11/24/20 11/24/20 Range/Units 21:56 21:56 21:58 WBC 8.4 (3.8-10.6) k/uL RBC 4.57 (3.80-5.40) m/uL Hgb 11.0 L (11.4-16.0) gm/dL Hct 35.1 (34.0-46.0) % MCV 76.8 L (80.0-100.0) fL MCH 24.1 L (25.0-35.0) pg MCHC 31.4 (31.0-37.0) g/dL RDW 17.5 H (11.5-15.5) % Plt Count 843 H D (150-450) k/uL MPV 6.6 Neutrophils % 69 % Lymphocytes % 18 % Monocytes % 6 % Eosinophils % 4 % Basophils % 1 % Neutrophils # 5.8 (1.3-7.7) k/uL Lymphocytes # 1.5 (1.0-4.8) k/uL Monocytes # 0.5 (0-1.0) k/uL Eosinophils # 0.3 (0-0.7) k/uL Basophils # 0.1 (0-0.2) k/uL Hypochromasia Slight Anisocytosis Slight Microcytosis Slight Sodium 139 (137-145) mmol/L Potassium 4.2 (3.5-5.1) mmol/L Chloride 109 H (98-107) mmol/L Carbon Dioxide 24 (22-30) mmol/L Anion Gap 6 mmol/L BUN 9 (7-17) mg/dL Creatinine 0.77 (0.52-1.04) mg/dL Est GFR (CKD-EPI)AfAm 90 (>60 ml/min/1.73 sqM) Est GFR (CKD-EPI)NonAf 78 (>60 ml/min/1.73 sqM) Glucose 111 H (74-99) mg/dL Calcium 9.4 (8.4-10.2) mg/dL Magnesium 2.5 H (1.6-2.3) mg/dL Total Bilirubin 0.6 (0.2-1.3) mg/dL AST 21 (14-36) U/L ALT 12 (4-34) U/L Alkaline Phosphatase 205 H (38-126) U/L Troponin I <0.012 (0.000-0.034) ng/mL Total Protein 6.4 (6.3-8.2) g/dL Albumin 3.7 (3.5-5.0) g/dL - EKG Data -: EKG Interpreted by [facility] EKG shows normal: sinus rhythm, axis (Normal), intervals (Normal), QRS complexes (Normal) Rate: normal Interpretation: nonspecific ST-T wave changes (Rate 63 bpm) Disposition Clinical Impression: Fall, Head injury Disposition: HOME SELF-CARE Condition: Good Instructions (If sedation given, give patient instructions): Fall Prevention for Older Adults (ED) Is patient prescribed a controlled substance at d/c from ED?: No Referrals: Cade Menendez DO [Primary Care Provider] - 1-2 days
[2020-11-24] MEDS ORDERED: ACETAMINOPHEN TAB 325 MG TAB PO STA (21:57)
[2020-11-24 22:08] LABS: Anisocytosis Slight; Basophils # (A) 0.1 k/uL (0-0.2); Basophils % (A) 1 %; Eosinophils # (A) 0.3 k/uL (0-0.7); Eosinophils % (A) 4 %; HCT 35.1 % (34.0-46.0); Hypochromasia Slight; Lymphocytes # (A) 1.5 k/uL (1.0-4.8); Lymphocytes % (A) 18 %; MCH 24.1 pg (25.0-35.0); MCHC 31.4 g/dL (31.0-37.0); MCV 76.8 fL (80.0-100.0); Mean Platelet Volume 6.6; Microcytosis Slight; Monocytes # (A) 0.5 k/uL (0-1.0); Monocytes % (A) 6 %; Neutrophils # (A) 5.8 k/uL (1.3-7.7); Neutrophils % (A) 69 %; RBC 4.57 m/uL (3.80-5.40); RDW 17.5 % (11.5-15.5); WBC 8.4 k/uL (3.8-10.6)
[2020-11-24 22:09] LABS: Platelet Count 843 k/uL (150-450)
[2020-11-24 22:11] LABS: Albumin 3.7 g/dL (3.5-5.0); Calcium 9.4 mg/dL (8.4-10.2); Magnesium 2.5 mg/dL (1.6-2.3); Potassium 4.2 mmol/L (3.5-5.1); Total Bilirubin 0.6 mg/dL (0.2-1.3); Total Protein 6.4 g/dL (6.3-8.2)
--- NOTE | 2020-11-24 22:25 | XR ---
EXAMINATION TYPE: XR chest 1V portable DATE OF EXAM: 11/24/2020 COMPARISON: 10/27/2020 HISTORY: Dysrhythmia TECHNIQUE: FINDINGS: Heart and mediastinum are normal. Lungs are clear. Costophrenic angles are clear. There are no hilar masses. There is left axillary pacemaker. There is no pleural effusion. IMPRESSION: No active cardiopulmonary disease. No change.
--- NOTE | 2020-11-24 22:45 | CT ---
EXAMINATION TYPE: CT brain cspine wo con DATE OF EXAM: 11/24/2020 COMPARISON: 09/03/2019 HISTORY: fall CT DLP: 1417.4 mGycm Automated exposure control for dose reduction was used. Ventricles have normal size. There is no mass effect nor midline shift. There is no sign of intracran ial hemorrhage. The calvarium is intact. There is no evidence of cerebral edema. Skull base is intact . There is normal aeration of the mastoid sinuses. Cervical vertebra have normal alignment. There is multilevel anterior fusion surgery from C3 to C7. P osterior elements are intact. There is mild spurring in the facet joints. There is no compression fra cture. IMPRESSION: Multilevel spine surgery. No acute bony abnormality. No change compared to old exam. Negative CT scan of the brain. No change compared to old exam.
[2020-11-24] MEDS ORDERED: NITROGLYCERIN SL TABS 0.4 MG TAB SUBLINGUAL PRN (23:50)
[2020-11-24] MEDS ORDERED: ZOLPIDEM 5 MG TAB PO PRN (23:52)
[2020-11-24] MEDS ORDERED: SODIUM CHLORIDE 0.9% 500 ML 500 ML IV STA (23:57)
[2020-11-25] MEDS: SODIUM CHLORIDE 0.9% 1,000 ML IV SCH ×2 (00:19→21:09)
[2020-11-25] MEDS ORDERED: diphenhydrAMINE 25 MG CAP PO PRN (01:00)
[2020-11-25] MEDS ORDERED: MELATONIN 5 MG TABLET PO PRN (01:00)
[2020-11-25] MEDS ORDERED: MECLIZINE 25 MG TAB PO PRN (01:00)
[2020-11-25] MEDS ORDERED: LORazepam 0.5 MG TAB PO PRN (01:00)
[2020-11-25] MEDS ORDERED: IBUPROFEN 800 MG TAB PO PRN (01:00)
[2020-11-25] MEDS ORDERED: BACLOFEN 10 MG TAB PO PRN (01:00)
[2020-11-25] MEDS: carvediloL 3.125 MG TAB PO SCH ×2 (06:51→17:24)
[2020-11-25] MEDS: LEVOTHYROXINE 50 MCG TAB PO SCH (06:51)
[2020-11-25] MEDS: POTASSIUM CHLORIDE ER 20 MEQ TAB.ER PO SCH ×2 (09:13→21:14)
[2020-11-25] MEDS: PANTOPRAZOLE 40 MG TABLET PO SCH ×2 (09:13→21:14)
[2020-11-25] MEDS: CITALOPRAM HYDROBROMIDE 20 MG TAB PO SCH (09:13)
[2020-11-25] MEDS: levETIRAcetam 500 MG TAB PO SCH ×2 (09:13→21:14)
[2020-11-25] MEDS: ASPIRIN 325 MG TAB PO SCH (09:13)
--- NOTE | 2020-11-25 18:04 | P.HPIM ---
History of Present Illness Patient is a pleasant 70-year-old female came in with complaints of board vertigo as well as a syncopal episode. Syncopal episode lasted for few minutes. Patient was transferred here from a subacute rehabitation facility. Patient does have hearing problems more on the right side of the left side patient denied any fullness in the ears. Patient's vertigo is improving but is still there. Patient was also complaining of some pain in the back of the head since patient had a fall patient had a cervical spine CT and head CT which showed multilevel degenerative disc disease and prior surgery. I did not ambulate the patient. I did not perform Dik's_ Halspike maneuver. REVIEW OF SYSTEMS: CONSTITUTIONAL: No fever, no malaise, no fatigue. HEENT: No recent visual problems or hearing problems. Denied any sore throat. CARDIOVASCULAR: No chest pain, orthopnea, PND, no palpitations, no syncope. PULMONARY: No shortness of breath, no cough, no hemoptysis. GASTROINTESTINAL: No diarrhea, no nausea, no vomiting, no abdominal pain. NEUROLOGICAL: no weakness, no numbness. HEMATOLOGICAL: Denies any bleeding or petechiae. GENITOURINARY: Denies any burning micturition, frequency, or urgency. MUSCULOSKELETAL/RHEUMATOLOGICAL: Denies any joint pain, swelling, or any muscle pain. ENDOCRINE: Denies any polyuria or polydipsia. The rest of the 14-point review of systems is negative. PHYSICAL EXAMINATION: GENERAL: The patient is alert and oriented x3, not in any acute distress. Well developed, well nourished. HEENT: Pupils are round and equally reacting to light. EOMI. No scleral icterus. No conjunctival pallor. Normocephalic, atraumatic. No pharyngeal erythema. No thyromegaly. CARDIOVASCULAR: S1 and S2 present. No murmurs, rubs, or gallops. PULMONARY: Chest is clear to auscultation, no wheezing or crackles. ABDOMEN: Soft, nontender, nondistended, normoactive bowel sounds. No palpable organomegaly. MUSCULOSKELETAL: No joint swelling or deformity. EXTREMITIES: No cyanosis, clubbing, or pedal edema. NEUROLOGICAL: Gross neurological examination did not reveal any focal deficits. SKIN: No rashes. Assessment and plan -Vertigo: Possible labyrinthitis or benign push vertigo appears to have peripher al vertigo., Neurology will be consulted. Patient does have history of Mnire's disease -Syncopal episode: Patient had normal EKG except for mild nonspecific T-wave abnormalities, echo cardiac will be obtained and patient will continue on reel fed printer patient will be monitored overnight -Gastroesophageal reflux disease -Hyperlipidemia -Hypertension -Hypothyroidism -History of seizure disorder last seizure was 2 years ago patient is a Keppra which will be continued -Patient has recent lower back surgery after which patient was transferred to subacute rehabilitation DVT prophylaxis: Lovenox Past Medical History Past Medical History: Asthma, Cancer, GERD/Reflux, GI Bleed, Hearing Disorder / Deafness, Hyperlipidemia, Hypertension, Osteoarthritis (OA), Seizure Disorder, Thyroid Disorder Additional Past Medical History / Comment(s): Last seizure over 2yr ago. Hard of hearing. MENIERES. Hx bilateral breast cancer 20 yrs ago. Hx bowel obstruction FROM DIVERTICULTIS. colitis. Exercise Induced Asthma. History of Any Multi-Drug Resistant Organisms: ESBL Date of last positivie culture/infection: 01/08/18 MDRO Source:: ESBL URINE Past Surgical History: Appendectomy, Back Surgery, Bariatric Surgery, Bowel Resection, Breast Surgery, Cholecystectomy, Heart Catheterization, Hernia Repair, Joint Replacement, Pacemaker, Tonsillectomy Additional Past Surgical History / Comment(s): PACEMAKER. LAP BAND INSERTED & REMOVED. GASTRIC SLEEVE (2016). BILATERAL TOTAL KNEE REPLACEMENTS, CERVICAL FUSION (2-7). BOWEL RESECTION (DIVERTICULITIS). INCISIONAL HERNIA REPAIR SEVERAL HEART CATHS-NO STENTS. BILATERAL BREAST LUMPECTOMIES (CANCER). Past Anesthesia/Blood Transfusion Reactions: Previous Problems w/ Anesthesia Additional Past Anesthesia/Blood Transfusion Reaction / Comment(s): Blood transfusion X3 -no reaction. "Low BP with anesthesia if takes BP med AM of surgery." Type of Cardiac Device: Permanent Pacemaker Device Placement Date:: 10/12/17 Past Psychological History: Anxiety, Depression Additional Psychological History / Comment(s): lives with sister, uses walker when up. Smoking Status: Never smoker Past Alcohol Use History: None Reported Past Drug Use History: None Reported - Past Family History Mother Family Medical History: Pulmonary Embolus Additional Family Medical History / Comment(s): Multiple TIA's. Father Family Medical History: Cancer Additional Family Medical History / Comment(s): Lung Cancer. Sister(s) Family Medical History: Cancer, Deep Vein Thrombosis (DVT), Pulmonary Embolus Additional Family Medical History / Comment(s): OVARIAN CANCER. Medications and Allergies Home Medications Medication Instructions Recorded Confirmed Type Levothyroxine Sodium [Synthroid] 50 mcg PO DAILY 11/11/17 11/24/20 History Meclizine [Antivert] 25 mg PO TID PRN 11/11/17 11/24/20 History Omeprazole 20 mg PO BID 11/11/17 11/24/20 History Potassium Chloride ER [K-Dur 20] 20 meq PO BID 11/11/17 11/24/20 History buPROPion XL [Wellbutrin XL] 150 mg PO HS 11/11/17 11/24/20 History carvediloL [Coreg] 3.125 mg PO BID 11/11/17 11/24/20 History levETIRAcetam [Keppra] 1,000 mg PO BID 12/11/17 11/24/20 History Citalopram Hydrobromide [CeleXA] 40 mg PO DAILY 06/23/18 11/24/20 History diphenhydrAMINE [Benadryl] 25 mg PO HS PRN 07/13/19 11/24/20 History Baclofen [Lioresal] 10 mg PO BID PRN #45 tablet 11/10/20 11/24/20 Rx Atorvastatin Calcium [Lipitor] 10 mg PO HS 11/24/20 11/24/20 History Chlorhexidine Gluconate [Periogard] 15 ml DENTAL BID 11/24/20 11/24/20 History Ibuprofen [Motrin] 800 mg PO Q8H PRN 11/24/20 11/24/20 History LORazepam 0.5 mg PO DAILY PRN 11/24/20 11/24/20 History Melatonin 5 mg PO HS PRN 11/24/20 11/24/20 History Zolpidem Tartrate [Ambien] 10 mg PO HS PRN 11/24/20 11/24/20 History Allergies Allergy/AdvReac Type Severity Reaction Status Date / Time ciprofloxacin [From Cipro] Allergy Unknown Verified 11/24/20 23:38 ciprofloxacin HCl Allergy Unknown Verified 11/24/20 23:38 [From Cipro] codeine Allergy Rash/Hives Verified 11/24/20 23:38 hydrocodone bitartrate Allergy Rash/Hives Verified 11/24/20 23:38 [From Lortab] hydromorphone [From Dilaudid] Allergy Rash/Hives Verified 11/24/20 23:38 meperidine HCl [From Demerol] Allergy Rash/Hives Verified 11/24/20 23:38 morphine Allergy Rash/Hives Verified 11/24/20 23:38 propoxyphene napsylate Allergy Rash/Hives Verified 11/24/20 23:38 [From Darvocet-N 100] soy Allergy Anaphylaxis Verified 11/24/20 23:38 Sulfa (Sulfonamide Allergy Rash/Hives Verified 11/24/20 23:38 Antibiotics) tetracycline [Tetracycline] Allergy Rash/Hives Verified 11/24/20 23:38 tioconazole [From Monistat 1] Allergy Rash/Hives Verified 11/24/20 23:38 tramadol Allergy Rash/Hives. Verified 11/24/20 23:38 "THROAT CLOSING UP" hemp Allergy Rash/Hives Uncoded 11/24/20 21:19 Physical Exam Vitals: Vital Signs Temp Pulse Pulse Resp BP BP BP 11/25/20 17:02 152/75 11/25/20 16:00 98.7 F 67 16 177/78 11/25/20 12:00 98.4 F 66 20 155/82 11/25/20 08:00 98.2 F 67 18 155/77 11/25/20 05:00 97.5 F L 78 16 136/71 11/25/20 01:25 97.9 F 68 14 169/77 11/24/20 23:39 98.4 F 11/24/20 23:23 143/77 147/84 11/24/20 22:35 65 16 139/73 11/24/20 21:10 97.7 F 69 16 168/79 BP Pulse Ox 11/25/20 17:02 11/25/20 16:00 97 11/25/20 12:00 96 11/25/20 08:00 95 11/25/20 05:00 96 11/25/20 01:25 98 11/24/20 23:39 11/24/20 23:23 119/86 11/24/20 22:35 94 L 11/24/20 21:10 97 Intake and Output 11/25/20 11/25/20 11/25/20 06:59 14:59 22:59 Intake Total 0 Output Total 1100 Balance -1100 0 Intake: Oral 0 Output: Urine 1100 Straight 550 Other: Voiding Method Bedpan # Voids 1 Weight 74 kg Results CBC & Chem 7: 11/24/20 21:56 11/24/20 21:58 Labs: Abnormal Lab Results - Last 24 Hours (Table) 11/24/20 11/24/20 Range/Units 21:56 21:58 Hgb 11.0 L (11.4-16.0) gm/dL MCV 76.8 L (80.0-100.0) fL MCH 24.1 L (25.0-35.0) pg RDW 17.5 H (11.5-15.5) % Plt Count 843 H D (150-450) k/uL Chloride 109 H (98-107) mmol/L Glucose 111 H (74-99) mg/dL Magnesium 2.5 H (1.6-2.3) mg/dL Alkaline Phosphatase 205 H (38-126) U/L Thrombosis Risk Factor Assmnt - Choose All That Apply Each Factor Represents 1 point: Obesity (BMI >25) Each Risk Factor Represents 2 Points: Age 61-74 years Thrombosis Risk Factor Assessment Total Risk Factor Score: 3 Thrombosis Risk Factor Assessment Level: Moderate Risk
[2020-11-25] MEDS ORDERED: buPROPion XL 150 MG TAB.ER.24H PO SCH (21:00)
[2020-11-25] MEDS ORDERED: ATORVASTATIN 10 MG TAB PO SCH (21:00)
[2020-11-26] MEDS: SODIUM CHLORIDE 0.9% 1,000 ML IV SCH (06:37)
[2020-11-26] MEDS: carvediloL 3.125 MG TAB PO SCH (06:39)
[2020-11-26] MEDS: LEVOTHYROXINE 50 MCG TAB PO SCH (06:39)
[2020-11-26] MEDS ORDERED: ENOXAPARIN 40 MG/0.4 ML SYRINGE SQ SCH (09:00)
[2020-11-26 09:08] VITALS: RESP 16
[2020-11-26] MEDS: ASPIRIN 325 MG TAB PO SCH (09:09)
[2020-11-26] MEDS: POTASSIUM CHLORIDE ER 20 MEQ TAB.ER PO SCH (09:09)
[2020-11-26] MEDS: levETIRAcetam 500 MG TAB PO SCH (09:09)
[2020-11-26] MEDS: PANTOPRAZOLE 40 MG TABLET PO SCH (09:09)
[2020-11-26] MEDS: CITALOPRAM HYDROBROMIDE 20 MG TAB PO SCH (09:09)
[2020-11-26 12:04] VITALS: PULSE 59; TEMP 97.3
--- NOTE | 2020-11-26 12:13 | ECHOF ---
Referral Reason:syncope MEASUREMENTS -------- HEIGHT: 152.4 cm WEIGHT: 70.8 kg BP: IVSd: 0.8 cm (0.6 - 1.1) LVIDd: 4.9 cm (3.9 - 5.3) LVPWd: 1.2 cm (0.6 - 1.1) IVSs: 1.3 cm LVIDs: 3.1 cm LVPWs: 1.2 cm LAESV Index (A-L): 24.57 ml/m MV EXCURSION: 23.601 mm (> 18.000) MV EF SLOPE: 54 mm/s (70 - 150) MV E Hubert: 0.61 m/s MV DecT: 285 ms MV A Hubert: 1.15 m/s MV E/A Ratio: 0.53 RAP: 5.00 mmHg RVSP: 30.68 mmHg FINDINGS -------- Pacerwire seen in RV and RA. This was a technically good study. The left ventricular size is normal. Overall left ventricular systolic function is low-normal with, an EF between 50 - 55 %. The right ventricle is normal in size. Normal LA size by volume 22+/-6 ml/m2. The right atrial size is normal. There is mild aortic valve sclerosis. There is no evidence of aortic regurgitation. Mild mitral regurgitation is present. Mild tricuspid regurgitation present. Right ventricular systolic pressure is normal at < 35 mmHg. There is no pulmonic regurgitation present. There is no pericardial effusion. CONCLUSIONS -------- 1. The left ventricular size is normal. 2. Overall left ventricular systolic function is low-normal with, an EF between 50 - 55 %. 3. The right ventricle is normal in size. 4. Normal LA size by volume 22+/-6 ml/m2. 5. The right atrial size is normal. 6. There is mild aortic valve sclerosis. 7. Mild mitral regurgitation is present. 8. Mild tricuspid regurgitation present. 9. There is no pericardial effusion. ACCOUNTS COLLECTOR: Kathleen Duggan RDCS
[2020-11-26 12:22] VITALS: BP 149/76
--- NOTE | 2020-11-26 13:05 | P.DS ---
Providers Date of admission: 11/24/20 23:50 Expected date of discharge: 11/26/20 Attending physician: Shelton Brunner Consults: 11/25/20 14:22 Consult Physician Routine (Cancelled) Consulting Provider: Ronn Griffin Consult Reason/Comments: vertigo Do you want consulting provider notified?: Yes Primary care physician: [facility] Course: Patient is a pleasant 70-year-old female came in with complaints of board vertigo as well as a syncopal episode. Syncopal episode lasted for few minutes. Patient was transferred here from a subacute rehabitation facility. Patient does have hearing problems more on the right side of the left side patient denied any fullness in the ears. Patient's vertigo is improving but is still there. Patient was also complaining of some pain in the back of the head since patient had a fall patient had a cervical spine CT and head CT which showed multilevel degenerative disc disease and prior surgery. I did not ambulate the patient. I did not perform Dik's_ Halspike maneuver. 11/26/2020 Patient seen on follow-up, feeling much better today and like to go home. 2-D echocardiogram showed normal LVEF 55%, EKG sinus mechanism, no arrhythmia noted on telemetry, CT of head and cervical spine multilevel degenerative disc disease and prior surgery area patient does have known history of Mnire's disease which is most likely the cause of her vertigo symptoms, she follows with neurologist Dr. Hilary clark. REVIEW OF SYSTEMS: HEENT: No recent visual problems or hearing problems. Denied any sore throat. CARDIOVASCULAR: No chest pain, orthopnea, PND, no palpitations, no syncope. PULMONARY: No shortness of breath, no cough, no hemoptysis. GASTROINTESTINAL: No diarrhea, no nausea, no vomiting, no abdominal pain. NEUROLOGICAL: no weakness, no numbness. GENITOURINARY: Denies any burning micturition, frequency, or urgency. PHYSICAL EXAMINATION: GENERAL: The patient is alert and oriented x3, not in any acute distress. Well developed, well nourished. HEENT: Pupils are round and equally reacting to light. EOMI. No scleral icterus. No conjunctival pallor. Normocephalic, atraumatic. No pharyngeal erythema. No thyromegaly. CARDIOVASCULAR: S1 and S2 present. No murmurs, rubs, or gallops. PULMONARY: Chest is clear to auscultation, no wheezing or crackles. ABDOMEN: Soft, nontender, nondistended, normoactive bowel sounds. No palpable organomegaly. MUSCULOSKELETAL: No joint swelling or deformity. EXTREMITIES: No cyanosis, clubbing, or pedal edema. NEUROLOGICAL: Gross neurological examination did not reveal any focal deficits. SKIN: No rashes. Assessment and plan -Vertigo: Most probably secondary to underlying Mnire's disease. Clinically doing well, she can follow up with her neurologist Dr. huertas in the outpatient setting. -Syncopal episode: Patient had normal EKG except for mild nonspecific T-wave abnormalities, no arrhythmia on telemetry, 2-D echo showed normal LV function. -Gastroesophageal reflux disease -Hyperlipidemia -Hypertension -Hypothyroidism -History of seizure disorder last seizure was 2 years ago patient is a Keppra which will be continued -Patient has recent lower back surgery after which patient was transferred to subacute rehabilitation DVT prophylaxis: Lovenox patient will be discharged home, she can follow-up with her neurologist Dr. Mclain in the outpatient setting, follow-up with PCP in one week. Patient Condition at Discharge: Good Plan - Discharge Summary Discharge Rx Participant: No New Discharge Prescriptions: Continue Potassium Chloride ER [K-Dur 20] 20 meq PO BID Omeprazole 20 mg PO BID Meclizine [Antivert] 25 mg PO TID PRN PRN Reason: Vertigo Levothyroxine Sodium [Synthroid] 50 mcg PO DAILY buPROPion XL [Wellbutrin XL] 150 mg PO HS carvediloL [Coreg] 3.125 mg PO BID levETIRAcetam [Keppra] 1,000 mg PO BID Citalopram Hydrobromide [CeleXA] 40 mg PO DAILY Atorvastatin Calcium [Lipitor] 10 mg PO HS Baclofen [Lioresal] 10 mg PO BID PRN #45 tablet PRN Reason: Muscle Spasm Zolpidem Tartrate [Ambien] 10 mg PO HS PRN PRN Reason: Insomnia LORazepam 0.5 mg PO DAILY PRN PRN Reason: Anxiety Ibuprofen [Motrin] 800 mg PO Q8H PRN PRN Reason: Pain Chlorhexidine Gluconate [Periogard] 15 ml DENTAL BID Melatonin 5 mg PO HS PRN PRN Reason: sleep Discontinued diphenhydrAMINE [Benadryl] 25 mg PO HS PRN PRN Reason: Allergy Symptoms & itching Discharge Medication List Levothyroxine Sodium [Synthroid] 50 mcg PO DAILY 11/11/17 [History] Meclizine [Antivert] 25 mg PO TID PRN 11/11/17 [History] Omeprazole 20 mg PO BID 11/11/17 [History] Potassium Chloride ER [K-Dur 20] 20 meq PO BID 11/11/17 [History] buPROPion XL [Wellbutrin XL] 150 mg PO HS 11/11/17 [History] carvediloL [Coreg] 3.125 mg PO BID 11/11/17 [History] levETIRAcetam [Keppra] 1,000 mg PO BID 12/11/17 [History] Citalopram Hydrobromide [CeleXA] 40 mg PO DAILY 06/23/18 [History] Baclofen [Lioresal] 10 mg PO BID PRN #45 tablet 11/10/20 [Rx] Atorvastatin Calcium [Lipitor] 10 mg PO HS 11/24/20 [History] Chlorhexidine Gluconate [Periogard] 15 ml DENTAL BID 11/24/20 [History] Ibuprofen [Motrin] 800 mg PO Q8H PRN 11/24/20 [History] LORazepam 0.5 mg PO DAILY PRN 11/24/20 [History] Melatonin 5 mg PO HS PRN 11/24/20 [History] Zolpidem Tartrate [Ambien] 10 mg PO HS PRN 11/24/20 [History] Follow up Appointment(s)/Referral(s): Cade Menendez DO [Primary Care Provider] - 3 Days Manas Spears MD [STAFF PHYSICIAN] - 1 Week Patient Instructions/Handouts: Fall Prevention for Older Adults (ED)
== END 2020-11-26 14:11 | disposition home or self-care (01) ==
LOC: EC 21:04 → 3SCARD 23:50 → 6NMEDSUR 11-26 11:54
PROVIDERS: ADMIT Hospitalist; ATTEND Hospitalist
DX: S09.90XA Unspecified injury of head, initial encounter (principal); R55 Syncope and collapse; R42 Dizziness and giddiness; M54.9 Dorsalgia, unspecified; E03.9 Hypothyroidism, unspecified; E78.5 Hyperlipidemia, unspecified; F32.9 Major depressive disorder, single episode, unspecified; H91.90 Unspecified hearing loss, unspecified ear; F41.9 Anxiety disorder, unspecified; G40.909 Epilepsy, unspecified, not intractable, without status epilepticus; I10 Essential (primary) hypertension; J45.909 Unspecified asthma, uncomplicated; K21.9 Gastro-esophageal reflux disease without esophagitis; M50.30 Other cervical disc degeneration, unspecified cervical region; W18.30XA Fall on same level, unspecified, initial encounter; Z79.890 Hormone replacement therapy; Z79.899 Other long term (current) drug therapy; Z85.3 Personal history of malignant neoplasm of breast; Z96.653 Presence of artificial knee joint, bilateral; Z98.84 Bariatric surgery status
CPT/HCPCS: 99285; 96372; 36415; 93005; 93306; 80053; 83735; 84484 ×2; 85025; 71045; 72125; 70450; G0378 ×3; J1650

== ENCOUNTER 2021-01-05 10:39 | Observation (INO) | payer MEDICARE ==
[2021-01-05] MEDS ORDERED: SODIUM CHLORIDE 0.9% 1,000 ML IV STA (11:05)
--- NOTE | 2021-01-05 11:14 | ED ---
General Adult HPI - General Chief complaint: Syncope Stated complaint: syncope Time Seen by Provider: 01/05/21 10:58 Source: patient Mode of arrival: wheelchair Limitations: no limitations - History of Present Illness Initial comments: 70-year-old female presenting to the emergency department with a chief complaint of a fall. Patient reports she has been experiencing lightheadedness and suffered 8 falls over the last 2 months with head injuries. Patient reports she was admitted last time and then discharged. States this morning, she had a similar episode where she stood up from bed even though she did it slowly. Then she suffered a syncopal episode and fell to the ground. Patient reports an injury to the occipital region of the head. She denies any one-sided weakness or paresthesias. Denies any complaints at this time. Patient takes multiple antihypertensive medications. She is not on blood thinners. Only baby aspirin. Denies any visual changes, chest pain or shortness of breath at this time. - Related Data Home Medications Medication Instructions Recorded Confirmed Levothyroxine Sodium [Synthroid] 50 mcg PO DAILY 11/11/17 01/05/21 Meclizine [Antivert] 25 mg PO TID 11/11/17 01/05/21 Omeprazole 20 mg PO BID 11/11/17 01/05/21 Potassium Chloride ER [K-Dur 20] 20 meq PO BID 11/11/17 01/05/21 buPROPion XL [Wellbutrin XL] 150 mg PO HS 11/11/17 01/05/21 carvediloL [Coreg] 3.125 mg PO BID 11/11/17 01/05/21 levETIRAcetam [Keppra] 1,000 mg PO BID 12/11/17 01/05/21 Citalopram Hydrobromide [CeleXA] 40 mg PO DAILY 06/23/18 01/05/21 Atorvastatin Calcium [Lipitor] 10 mg PO HS 11/24/20 01/05/21 Chlorhexidine Gluconate [Periogard] 15 ml DENTAL BID 11/24/20 01/05/21 Ibuprofen [Motrin] 800 mg PO Q8H PRN 11/24/20 01/05/21 LORazepam 0.5 mg PO DAILY PRN 11/24/20 01/05/21 Zolpidem Tartrate [Ambien] 10 mg PO HS PRN 11/24/20 01/05/21 Aspirin EC [Ecotrin Low Dose] 81 mg PO DAILY 01/05/21 01/05/21 hydroCHLOROthiazide [Hydrodiuril] 25 mg PO DAILY 01/05/21 01/05/21 Previous Rx's Medication Instructions Recorded Baclofen [Lioresal] 10 mg PO BID PRN #45 tablet 11/10/20 Allergies Allergy/AdvReac Type Severity Reaction Status Date / Time ciprofloxacin [From Cipro] Allergy Unknown Verified 01/05/21 13:07 ciprofloxacin HCl Allergy Unknown Verified 01/05/21 13:07 [From Cipro] codeine Allergy Rash/Hives Verified 01/05/21 13:07 hydrocodone bitartrate Allergy Rash/Hives Verified 01/05/21 13:07 [From Lortab] hydromorphone [From Dilaudid] Allergy Rash/Hives Verified 01/05/21 13:07 meperidine HCl [From Demerol] Allergy Rash/Hives Verified 01/05/21 13:07 morphine Allergy Rash/Hives Verified 01/05/21 13:07 propoxyphene napsylate Allergy Rash/Hives Verified 01/05/21 13:07 [From Darvocet-N 100] soy Allergy Anaphylaxis Verified 01/05/21 13:07 Sulfa (Sulfonamide Allergy Rash/Hives Verified 01/05/21 13:07 Antibiotics) tetracycline [Tetracycline] Allergy Rash/Hives Verified 01/05/21 13:07 tioconazole [From Monistat 1] Allergy Rash/Hives Verified 01/05/21 13:07 tramadol Allergy Rash/Hives. Verified 01/05/21 13:07 "THROAT CLOSING UP" hemp Allergy Rash/Hives Uncoded 01/05/21 10:44 Review of Systems ROS Statement: Those systems with pertinent positive or pertinent negative responses have been documented in the HPI. ROS Other: All systems not noted in ROS Statement are negative. Past Medical History Past Medical History: Asthma, Cancer, GERD/Reflux, GI Bleed, Hearing Disorder / Deafness, Hyperlipidemia, Hypertension, Osteoarthritis (OA), Seizure Disorder, Thyroid Disorder Additional Past Medical History / Comment(s): Last seizure over 2yr ago. Hard of hearing. MENIERES. Hx bilateral breast cancer 20 yrs ago. Hx bowel obstruction FROM DIVERTICULTIS. colitis. Exercise Induced Asthma. History of Any Multi-Drug Resistant Organisms: ESBL Date of last positivie culture/infection: 01/08/18 MDRO Source:: ESBL URINE Past Surgical History: Appendectomy, Back Surgery, Bariatric Surgery, Bowel Resection, Breast Surgery, Cholecystectomy, Heart Catheterization, Hernia Repair, Joint Replacement, Pacemaker, Tonsillectomy Additional Past Surgical History / Comment(s): PACEMAKER. LAP BAND INSERTED & REMOVED. GASTRIC SLEEVE (2016). BILATERAL TOTAL KNEE REPLACEMENTS, CERVICAL FUSION (2-7). BOWEL RESECTION (DIVERTICULITIS). INCISIONAL HERNIA REPAIR SEVERAL HEART CATHS-NO STENTS. BILATERAL BREAST LUMPECTOMIES (CANCER). Past Anesthesia/Blood Transfusion Reactions: Previous Problems w/ Anesthesia Additional Past Anesthesia/Blood Transfusion Reaction / Comment(s): Blood transfusion X3 -no reaction. "Low BP with anesthesia if takes BP med AM of surgery." Type of Cardiac Device: Permanent Pacemaker Device Placement Date:: 10/12/17 Past Psychological History: Anxiety, Depression Smoking Status: Never smoker Past Alcohol Use History: None Reported Past Drug Use History: None Reported - Past Family History Mother Family Medical History: Pulmonary Embolus Additional Family Medical History / Comment(s): Multiple TIA's. Father Family Medical History: Cancer Additional Family Medical History / Comment(s): Lung Cancer. Sister(s) Family Medical History: Cancer, Deep Vein Thrombosis (DVT), Pulmonary Embolus Additional Family Medical History / Comment(s): OVARIAN CANCER. General Exam Limitations: no limitations General appearance: alert, in no apparent distress Head exam: Present: atraumatic, normocephalic. Absent: normal inspection (Hematoma on the occipital region of the head), other (Negative Mason sign, raccoon eyes, hemotympanum.) Eye exam: Present: normal appearance, EOMI Pupils: Present: normal accommodation ENT exam: Present: normal exam, normal oropharynx, mucous membranes moist, TM's normal bilaterally, normal external ear exam Neck exam: Present: normal inspection, full ROM. Absent: tenderness Respiratory exam: Present: normal lung sounds bilaterally. Absent: respiratory distress, wheezes, rales, rhonchi, stridor, chest wall tenderness, accessory muscle use Cardiovascular Exam: Present: regular rate, normal rhythm, normal heart sounds. Absent: systolic murmur GI/Abdominal exam: Present: soft. Absent: distended, tenderness, guarding, rebound Extremities exam: Present: normal inspection, full ROM, normal capillary refill. Absent: tenderness, pedal edema, joint swelling Back exam: Present: normal inspection, full ROM. Absent: tenderness, CVA tenderness (R), CVA tenderness (L), muscle spasm, paraspinal tenderness, ve rtebral tenderness Neurological exam: Present: alert, oriented X3 Psychiatric exam: Present: normal affect, normal mood Skin exam: Present: warm, dry, intact, normal color Course Vital Signs 01/05/21 01/05/21 10:40 15:36 Temperature 98 F 97.6 F Pulse Rate 64 71 Respiratory 18 23 Rate Blood Pressure 127/79 151/80 O2 Sat by Pulse 95 95 Oximetry EKG Findings - EKG Comments: EKG Findings:: Sinus rhythm. Ventricular rate 61, KY 200, QRS 90, QTC 465. Medical Decision Making - Medical Decision Making 70-year-old female presenting to the emergency department with a chief complaint of syncope. On physical examination, she has a hematoma on the occipital region of the head. CT of the brain and C-spine shows no acute injury. Laboratory work is unremarkable. Patient was given IV fluids. Reevaluation, she reports no significant improvement in her symptoms. Considering the patient's recurrent syncopal episodes, she will be admitted for further medical management. I discussed the case with Dr. Menendez who recommended cardiology and neurology consult. He also wanted the case to be communicated with [facility]. I spoke to COLBY Evans who will admit for Dr. Brunner. Case discussed with Dr. Brian. - Lab Data Result diagrams: 01/05/21 11:13 01/05/21 11:13 Lab Results 01/05/21 01/05/21 01/05/21 Range/Units 11:13 11:13 11:13 WBC 5.5 (3.8-10.6) k/uL RBC 4.91 (3.80-5.40) m/uL Hgb 11.6 (11.4-16.0) gm/dL Hct 37.4 (34.0-46.0) % MCV 76.2 L (80.0-100.0) fL MCH 23.7 L (25.0-35.0) pg MCHC 31.1 (31.0-37.0) g/dL RDW 15.6 H (11.5-15.5) % Plt Count 367 (150-450) k/uL MPV 6.9 Neutrophils % 56 % Lymphocytes % 28 % Monocytes % 6 % Eosinophils % 7 % Basophils % 1 % Neutrophils # 3.1 (1.3-7.7) k/uL Lymphocytes # 1.5 (1.0-4.8) k/uL Monocytes # 0.3 (0-1.0) k/uL Eosinophils # 0.4 (0-0.7) k/uL Basophils # 0.1 (0-0.2) k/uL Hypochromasia Slight Microcytosis Slight PT 9.7 (9.0-12.0) sec INR 0.9 (<1.2) APTT 23.0 (22.0-30.0) sec Sodium 138 (137-145) mmol/L Potassium 3.8 (3.5-5.1) mmol/L Chloride 105 (98-107) mmol/L Carbon Dioxide 26 (22-30) mmol/L Anion Gap 7 mmol/L BUN 9 (7-17) mg/dL Creatinine 0.70 (0.52-1.04) mg/dL Est GFR (CKD-EPI)AfAm >90 (>60 ml/min/1.73 sqM) Est GFR (CKD-EPI)NonAf 87 (>60 ml/min/1.73 sqM) Glucose 111 H (74-99) mg/dL Calcium 9.4 (8.4-10.2) mg/dL Magnesium 2.2 (1.6-2.3) mg/dL Total Bilirubin 0.7 (0.2-1.3) mg/dL AST 21 (14-36) U/L ALT 12 (4-34) U/L Alkaline Phosphatase 117 (38-126) U/L Troponin I (0.000-0.034) ng/mL Total Protein 6.9 (6.3-8.2) g/dL Albumin 3.9 (3.5-5.0) g/dL Urine Color Urine Appearance (Clear) Urine pH (5.0-8.0) Ur Specific Clarence (1.001-1.035) Urine Protein (Negative) Urine Glucose (UA) (Negative) Urine Ketones (Negative) Urine Blood (Negative) Urine Nitrite (Negative) Urine Bilirubin (Negative) Urine Urobilinogen (<2.0) mg/dL Ur Leukocyte Esterase (Negative) 01/05/21 01/05/21 Range/Units 11:13 11:13 WBC (3.8-10.6) k/uL RBC (3.80-5.40) m/uL Hgb (11.4-16.0) gm/dL Hct (34.0-46.0) % MCV (80.0-100.0) fL MCH (25.0-35.0) pg MCHC (31.0-37.0) g/dL RDW (11.5-15.5) % Plt Count (150-450) k/uL MPV Neutrophils % % Lymphocytes % % Monocytes % % Eosinophils % % Basophils % % Neutrophils # (1.3-7.7) k/uL Lymphocytes # (1.0-4.8) k/uL Monocytes # (0-1.0) k/uL Eosinophils # (0-0.7) k/uL Basophils # (0-0.2) k/uL Hypochromasia Microcytosis PT (9.0-12.0) sec INR (<1.2) APTT (22.0-30.0) sec Sodium (137-145) mmol/L Potassium (3.5-5.1) mmol/L Chloride (98-107) mmol/L Carbon Dioxide (22-30) mmol/L Anion Gap mmol/L BUN (7-17) mg/dL Creatinine (0.52-1.04) mg/dL Est GFR (CKD-EPI)AfAm (>60 ml/min/1.73 sqM) Est GFR (CKD-EPI)NonAf (>60 ml/min/1.73 sqM) Glucose (74-99) mg/dL Calcium (8.4-10.2) mg/dL Magnesium (1.6-2.3) mg/dL Total Bilirubin (0.2-1.3) mg/dL AST (14-36) U/L ALT (4-34) U/L Alkaline Phosphatase (38-126) U/L Troponin I <0.012 (0.000-0.034) ng/mL Total Protein (6.3-8.2) g/dL Albumin (3.5-5.0) g/dL Urine Color Colorless Urine Appearance Clear (Clear) Urine pH 6.0 (5.0-8.0) Ur Specific Clarence 1.007 (1.001-1.035) Urine Protein Negative (Negative) Urine Glucose (UA) Negative (Negative) Urine Ketones Negative (Negative) Urine Blood Negative (Negative) Urine Nitrite Negative (Negative) Urine Bilirubin Negative (Negative) Urine Urobilinogen <2.0 (<2.0) mg/dL Ur Leukocyte Esterase Negative (Negative) Disposition Clinical Impression: Syncope Disposition: ADMITTED IP TO THIS HOSP Condition: Fair Is patient prescribed a controlled substance at d/c from ED?: No Referrals: Cade Menendez DO [Primary Care Provider] - 1-2 days Time of Disposition: 15:42
[2021-01-05 11:46] LABS: Basophils # (A) 0.1 k/uL (0-0.2); Basophils % (A) 1 %; Eosinophils # (A) 0.4 k/uL (0-0.7); Eosinophils % (A) 7 %; HCT 37.4 % (34.0-46.0); HGB 11.6 gm/dL (11.4-16.0); Hypochromasia Slight; Lymphocytes # (A) 1.5 k/uL (1.0-4.8); Lymphocytes % (A) 28 %; MCH 23.7 pg (25.0-35.0); MCHC 31.1 g/dL (31.0-37.0); MCV 76.2 fL (80.0-100.0); Mean Platelet Volume 6.9; Microcytosis Slight; Monocytes # (A) 0.3 k/uL (0-1.0); Monocytes % (A) 6 %; Neutrophils # (A) 3.1 k/uL (1.3-7.7); Neutrophils % (A) 56 %; Platelet Count 367 k/uL (150-450); RBC 4.91 m/uL (3.80-5.40); RDW 15.6 % (11.5-15.5); WBC 5.5 k/uL (3.8-10.6)
[2021-01-05 11:55] LABS: INR 0.9 (<1.2); Prothrombin Time 9.7 sec (9.0-12.0)
[2021-01-05 11:59] LABS: ALT 12 U/L (4-34); AST 21 U/L (14-36); African American GFR (CKD) >90 (>60 ml/min/1.73 sqM); Albumin 3.9 g/dL (3.5-5.0); Alkaline Phosphatase 117 U/L (38-126); Anion Gap 7 mmol/L; Blood Urea Nitrogen 9 mg/dL (7-17); Calcium 9.4 mg/dL (8.4-10.2); Carbon Dioxide 26 mmol/L (22-30); Chloride 105 mmol/L (98-107); Glucose 111 mg/dL (74-99); Magnesium 2.2 mg/dL (1.6-2.3); Non-African American GFR(CKD) 87 (>60 ml/min/1.73 sqM); Potassium 3.8 mmol/L (3.5-5.1); Sodium 138 mmol/L (137-145); Total Bilirubin 0.7 mg/dL (0.2-1.3); Total Protein 6.9 g/dL (6.3-8.2)
--- NOTE | 2021-01-05 12:22 | XR ---
EXAMINATION TYPE: XR chest 2V DATE OF EXAM: 01/05/2021 COMPARISON: 11/24/2020 INDICATION: Syncope headache TECHNIQUE: Frontal and lateral views of the chest are obtained. FINDINGS: The heart size is normal. The pulmonary vasculature is normal. The lungs are clear. Pacer is over the left chest IMPRESSION: 1. No acute pulmonary process.
[2021-01-05 12:46] LABS: Appearance,Urine Clear (Clear); Bilirubin,Urine Negative (Negative); Blood,Urine Negative (Negative); Color,Urine Colorless; Glucose,Urine (UA) Negative (Negative); Ketones,Urine Negative (Negative); Leukocyte Esterase,Urine Negative (Negative); Nitrite,Urine Negative (Negative); Protein,Urine Negative (Negative); Specific Gravity,Urine 1.007 (1.001-1.035); Urobilinogen,Urine <2.0 mg/dL (<2.0)
--- NOTE | 2021-01-05 14:30 | CT ---
EXAMINATION TYPE: CT brain april wo con DATE OF EXAM: 01/05/2021 COMPARISON: 11/24/2020 HISTORY: Syncope and fall on the loss of consciousness CT DLP: 1304.5 mGycm, Automated exposure control for dose reduction was used. CONTRAST: Patient injected with 0 mL of Isovue 300. CT of the brain is performed utilizing 3 mm thick sections through the posterior fossa and 3 mm thick sections through the remaining calvarium. Study is performed within 24 hours of arrival to the hospital. No abnormal hyperdensity is present to suggest an acute intracranial hemorrhage. No mass lesion is evident. No acute infarcts are evident. Mild periventricular white matter hypodensity is present, likely on t he basis of chronic white matter ischemic change. No significant interval change is evident. Ventricles and sulci are appropriate for the patient age. Hyperostosis frontalis internus is present , normal variant. Paranasal sinuses and mastoid air cells within the [id number] are clear. IMPRESSIONS: 1. Mild chronic appearing periventricular white matter ischemic changes. CT cervical spine. COMPARISON: None CT of the cervical spine is performed in the axial plane at 2 mm thick sections. Reconstructed image s in the coronal, and sagittal plane are reviewed on the computer. No acute fractures are evident. There is anterior fusion of C3-C7. Vertebral body alignment is normal. Disc heights are preserved. Vertebral body heights are preserved. No spinal canal stenosis is evident. Uncovertebral joint hypertrophy is present in the lower cervical spine contributing to some foraminal narrowing. IMPRESSIONS: 1. Post cervical fusion. 2. Mild foraminal narrowing from uncovertebral joint
[2021-01-05] MEDS ORDERED: NALOXONE 0.4 MG/ML 1 ML VIAL IV PRN (15:39)
[2021-01-05] MEDS: SODIUM CHLORIDE 0.9% 1,000 ML IV SCH (17:16)
--- NOTE | 2021-01-05 17:51 | P.CNNES ---
History of Present Illness Consult date: 01/05/21 Requesting physician: Adelfo Kirkland Reason for Consult: syncope History of Present Illness: This is a 70-year-old woman with medical history of seizure, cervical fusion, hypertension, hyperlipidemia, hypothyroidism, pacemaker and anxiety, that presented emergency department on 01/05/2021 after a fall. Patient stated that that she's been experiencing lightheadedness and has suffered 8 falls over the last 2 months and has been having head injury as a result. She said that she expresses these episodes when she bends forward and stands up she'll have this she said that before the episode the she feels like her heart is at pacing and feels lightheaded and passes out for a few seconds. She denies a any urinary, bowel incontinence, tongue bite. She said that episodes were witnessed by family members and the no jerking of any extremities noted. As stated that earlier these episodes last for a few seconds then that she regains consciousness immediately without any confusion according to patient. And the only happen when the bending forward and standing up she stated. According to patient per her neurologist (Dr. Manas Spears) he notified her that those are not seizures. She said that her seizures are different than these episodes and with her seizures she has a grand mal seizures and petit mal and she has not had a seizure in the last 2 years. She said that she had a carotid duplex about one week ago at her primary care's office but does not know the result. Patient stated that she has a pacemaker has not followed up with project control manager in a while. She also had a 2-D echo on 11/26/20: And it's reported as left ventricle size is normal. Left ventricular systolic function is low normal with ejection fraction of 50-55%. Normal left atrial size by volume. Patient is on Keppra 1000 mg 1 tablet twice a day, zolpidem 10 mg daily at bedtime, Synthroid, lorazepam 0.5 mg daily when necessary (takes at bedtime), baclofen 10 mg 1 tablet twice a day as needed, Lipitor 10 mg at nighttime, aspi rin 81 mg daily, meclizine 25 mother with tablet twice a day, on protocol, Wellbutrin 150 mg daily at bedtime, carvedilol, hydrochlorothiazide, potassium, Celexa Of note upon reviewing patient's medical record she had an EEG in 2018 and 2013 in our facility and they're both reported as normal. She was seen by the neurology team on 01/09/2018 for seizure and was seen by Dr. Gerson Vazquez and they felt she had questionable recent seizure. They recommended for the patient to continue taking Keppra 1250 in the morning and 1000 and in the evening. They're recommended to continue Fycompa 4 mg daily at bedtime. Please refer to their notes for further details. Some of the workup in the hospital consisted of: Initial vital signs blood pressure of 127/79, heart rate is 64, respiratory of 18, temperature of 98.0 Fahrenheit oral pulse ox of 95% room air. CT of the head is reported as mild chronic-appearing periventricular white matter changes. CT of the cervical spine was reported as post cervical fusion. Mild foraminal narrowing from unvertebral joint. It seems the patient has anterior fusion of the C3-C4 EKG is reported as normal sinus rhythm. Normal EKG. CBC is the MCV 76.2. Otherwise white blood cell, hemoglobin and platelets are unremarkable. The chemistry panel C is unremarkable. Calcium is 9.4, magnesium 2.2, AST of 21 and ALT a fall which is within normal limits. Urinalysis is negative for urinary tract infection Review of Systems Review of system: The 12 point system was reviewed and apparent positive and negative per HPI. Past Medical History Past Medical History: Asthma, Cancer, GERD/Reflux, GI Bleed, Hearing Disorder / Deafness, Hyperlipidemia, Hypertension, Osteoarthritis (OA), Seizure Disorder, Thyroid Disorder Additional Past Medical History / Comment(s): Last seizure over 2yr ago. Hard of hearing. MENIERES. Hx bilateral breast cancer 20 yrs ago. Hx bowel obstruction FROM DIVERTICULTIS. colitis. Exercise Induced Asthma. History of Any Multi-Drug Resistant Organisms: ESBL Date of last positivie culture/infection: 01/08/18 MDRO Source:: ESBL URINE Past Surgical History: Appendectomy, Back Surgery, Bariatric Surgery, Bowel Resection, Breast Surgery, Cholecystectomy, Heart Catheterization, Hernia Repair, Joint Replacement, Pacemaker, Tonsillectomy Additional Past Surgical History / Comment(s): PACEMAKER. LAP BAND INSERTED & REMOVED. GASTRIC SLEEVE (2016). BILATERAL TOTAL KNEE REPLACEMENTS, CERVICAL FUSION (2-7). BOWEL RESECTION (DIVERTICULITIS). INCISIONAL HERNIA REPAIR SEVERAL HEART CATHS-NO STENTS. BILATERAL BREAST LUMPECTOMIES (CANCER). Past Anesthesia/Blood Transfusion Reactions: Previous Problems w/ Anesthesia Additional Past Anesthesia/Blood Transfusion Reaction / Comment(s): Blood transfusion X3 -no reaction. "Low BP with anesthesia if takes BP med AM of surgery." Type of Cardiac Device: Permanent Pacemaker Device Placement Date:: 10/12/17 Past Psychological History: Anxiety, Depression Smoking Status: Never smoker Past Alcohol Use History: None Reported Past Drug Use History: None Reported - Past Family History Mother Family Medical History: Pulmonary Embolus Additional Family Medical History / Comment(s): Multiple TIA's. Father Family Medical History: Cancer Additional Family Medical History / Comment(s): Lung Cancer. Sister(s) Family Medical History: Cancer, Deep Vein Thrombosis (DVT), Pulmonary Embolus Additional Family Medical History / Comment(s): OVARIAN CANCER. Medications and Allergies Home Medications Medication Instructions Recorded Confirmed Type Levothyroxine Sodium [Synthroid] 50 mcg PO DAILY 11/11/17 01/05/21 History Meclizine [Antivert] 25 mg PO TID 11/11/17 01/05/21 History Omeprazole 20 mg PO BID 11/11/17 01/05/21 History Potassium Chloride ER [K-Dur 20] 20 meq PO BID 11/11/17 01/05/21 History buPROPion XL [Wellbutrin XL] 150 mg PO HS 11/11/17 01/05/21 History carvediloL [Coreg] 3.125 mg PO BID 11/11/17 01/05/21 History levETIRAcetam [Keppra] 1,000 mg PO BID 12/11/17 01/05/21 History Citalopram Hydrobromide [CeleXA] 40 mg PO DAILY 06/23/18 01/05/21 History Baclofen [Lioresal] 10 mg PO BID PRN #45 tablet 11/10/20 01/05/21 Rx Atorvastatin Calcium [Lipitor] 10 mg PO HS 11/24/20 01/05/21 History Chlorhexidine Gluconate [Periogard] 15 ml DENTAL BID 11/24/20 01/05/21 History Ibuprofen [Motrin] 800 mg PO Q8H PRN 11/24/20 01/05/21 History LORazepam 0.5 mg PO DAILY PRN 11/24/20 01/05/21 History Zolpidem Tartrate [Ambien] 10 mg PO HS PRN 11/24/20 01/05/21 History Aspirin EC [Ecotrin Low Dose] 81 mg PO DAILY 01/05/21 01/05/21 History hydroCHLOROthiazide [Hydrodiuril] 25 mg PO DAILY 01/05/21 01/05/21 History Allergies Allergy/AdvReac Type Severity Reaction Status Date / Time ciprofloxacin [From Cipro] Allergy Unknown Verified 01/05/21 13:07 ciprofloxacin HCl Allergy Unknown Verified 01/05/21 13:07 [From Cipro] codeine Allergy Rash/Hives Verified 01/05/21 13:07 hydrocodone bitartrate Allergy Rash/Hives Verified 01/05/21 13:07 [From Lortab] hydromorphone [From Dilaudid] Allergy Rash/Hives Verified 01/05/21 13:07 meperidine HCl [From Demerol] Allergy Rash/Hives Verified 01/05/21 13:07 morphine Allergy Rash/Hives Verified 01/05/21 13:07 propoxyphene napsylate Allergy Rash/Hives Verified 01/05/21 13:07 [From Darvocet-N 100] soy Allergy Anaphylaxis Verified 01/05/21 13:07 Sulfa (Sulfonamide Allergy Rash/Hives Verified 01/05/21 13:07 Antibiotics) tetracycline [Tetracycline] Allergy Rash/Hives Verified 01/05/21 13:07 tioconazole [From Monistat 1] Allergy Rash/Hives Verified 01/05/21 13:07 tramadol Allergy Rash/Hives. Verified 01/05/21 13:07 "THROAT CLOSING UP" hemp Allergy Rash/Hives Uncoded 01/05/21 10:44 Physical Examination - Vital Signs Vital Signs: Vital Signs Temp Pulse Resp BP Pulse Ox 01/05/21 15:36 97.6 F 71 23 151/80 95 01/05/21 10:40 98 F 64 18 127/79 95 Intake and Output 01/05/21 01/05/21 01/05/21 06:59 14:59 22:59 Other: Weight 69.4 kg GENERAL: The patient is lying in bed and is not in acute distress. CHEST: The heart rate is regular rate rhythm. No murmurs to auscultation. No carotid bruit bilaterally. LUNG: Clear to auscultation bilaterally no wheezing noted throughout. Not labored breathing. ABDOMEN/GI: Bowel sounds present in all 4 quadrants. No tenderness to palpation throughout. NEUROLOGICAL: Higher mental function: The patient is awake, alert, oriented to self, place and time. Patient is following commands. No aphasia and no neglect. Cranial nerves: The pupils are round, equal and reactive to light and accommodation. Visual nunez are full to confrontation throughout. Extraocular movement is intact no nystagmus is noted. Facial sensation is normal to touch throughout. The facial strength is normal throughout. Hearing is normal bilaterally to hand rub. Tongue is midline and moved [id number] without any difficulty. No dysarthria is noted. Shoulder shrug is normal bilaterally. Motor: Gait is deferred. The strength is 5 over 5 throughout. Normal tone and bulk. Cerebellum: Normal finger to nose heel to saravia bilaterally. Sensation: Sensation is normal to touch throughout. Reflexes (right/left): 2+ throughout. Plantars are downgoing bilaterally. Results - Laboratory Findings CBC and BMP: 01/05/21 11:13 01/05/21 11:13 Abnormal Lab Findings: Abnormal Labs 01/05/21 01/05/21 11:13 11:13 MCV 76.2 L MCH 23.7 L RDW 15.6 H Glucose 111 H Assessment and Plan Assessment: * Recurrent Syncopal episode (occurs when bends forward and stands up and last few seconds). Not seizures. * Has a pacemaker (stated has not followed-up with cardiology team in a while) * I feel the patient is on polypharmacy and is on sedative medications that can increase risk of falls (Zolpidem, Ativan, Baclofen). * History of seizures (last seizure about 2 years ago). * History of cervical fusion (C3-C7) * Hypertension--presented normotensive * Hyperlipidemia * Anxiety disorder * Polypharmacy Plan: * I ordered orthostatic vitals. If negative consider tilt table test. * Recommend obtaining the report for carotid duplex. * Recommend consideration of a Holter monitor or loop recorder. * An EEG is not warranted at this time. * She already had a recent 2-D echo and from a neurological perspective I'll leave the decision of repeating the echo to the cardiology team/primary team. * Highly recommended to avoid any sedating as or narcotic which would affect the patient mentation and with increased risk of fall. * Recommend discontinuing Wellbutrin which decreases the threshold for seizures. * Every 4 neuro checks * Continue Keppra 1 g twice a day * On cardiac monitoring * Cardiology is consulted * Upon discharge the patient needs to follow-up with a neurologist (Dr. Manas Spears) as an outpatient within 2 weeks. * We'll defer the rest of the medical management of Primary team. The plan is discussed with the patient's nurse. Thank you for the consultation. Ronn Griffin M.D. Neuro-hospitalist Time with Patient: Greater than 30
[2021-01-05] MEDS ORDERED: LORazepam 0.5 MG TAB PO PRN (19:29)
[2021-01-05] MEDS ORDERED: BACLOFEN 10 MG TAB PO PRN (19:29)
--- NOTE | 2021-01-05 20:43 | HP ---
HISTORY AND PHYSICAL DATE OF SERVICE: 01/05/2021. CHIEF COMPLAINT: Recurrent syncope. HISTORY OF PRESENT ILLNESS: This 70-year-old woman with a past medical history of multiple problems including, asthma, history of GERD, GI bleed, history of hypertension, hyperlipidemia, history of DJD, seizure disorder, history of appendectomy, history of ESBL in urine, being followed by Dr. Menendez in the outpatient setting, was complaining of recurrent episodes of syncope. The patient had no premonition of the symptoms and the patient had 8 falls suffered in the past 2 months. The patient was taken to [facility] and admitted for further evaluation and treatment. The initial evaluation showed MCV was 76.2; otherwise, COVID-19 was negative. Orthostatic changes are not available at this time. The patient also had a CT of the head and cervical spine, which I reviewed personally. It showed post-cervical fusion and mild foraminal narrowing from intervertebral joint. The chest x-ray showed no acute abnormality. Neurology evaluation is in progress. There is no history of fever, rigors, chills at this time. PAST MEDICAL HISTORY: History of asthma, history of GERD, GI bleed, hypertension, hypertension, history of DJD, seizure disorder, history of ESBL, appendectomy, back surgery. MEDICATIONS: Home medications are Keppra, HydroDIURIL, Coreg, Wellbutrin XL, Ambien, K-Dur, omeprazole, Antivert, Synthroid, Lovaza, Motrin, Celexa, PerioGard, Lioresal, Lipitor, Ecotrin. ALLERGIES: CIPRO, CODEINE, LORTAB, DILAUDID, MORPHINE, DARVOCET-N 100, SOY, SULFA, TETRACYCLINE, MONISTAT, ULTRAM, HAM. FAMILY HISTORY: History of pulmonary embolism and multiple TIAs. SOCIAL HISTORY: No history of smoking. No history of alcohol intake. REVIEW OF SYSTEMS: ENT: As mentioned earlier. CARDIOVASCULAR SYSTEM: No angina, palpitations. RESPIRATORY SYSTEM: No cough, hemoptysis. GI: No nausea, vomiting, diarrhea. : No dysuria. NERVOUS SYSTEM: No numbness. Otherwise as mentioned earlier. ALLERGY/IMMUNOLOGY: No asthma or hay fever. MUSCULOSKELETAL: As mentioned earlier. HEMATOLOGY/ONCOLOGY: No history of anemia. ENDOCRINE: No history of diabetes, hypothyroidism. CONSTITUTIONAL: As mentioned earlier. DERMATOLOGY: Negative. RHEUMATOLOGY: Negative. PSYCHIATRY: As mentioned earlier. PHYSICAL EXAMINATION: Patient is alert and oriented . Pulse 62, blood pressure 148/74, respirations 16, temperature 97.7, pulse ox 97% on room air. HEENT: Conjunctivae normal. Oral mucosa moist. NECK: No jugular venous distention. No carotid bruit. No lymph node enlargement. CARDIOVASCULAR: S1, S2 muffled. RESPIRATION: Breath sounds diminished at the bases. No rhonchi. No crackles. ABDOMEN: Soft, nontender. No mass palpable. LEGS: No edema. No swelling. NERVOUS SYSTEM: Higher functions as mentioned earlier. Moves all 4 limbs. No focal motor or sensory deficit. LYMPHATICS: No lymph node palpable in neck, axillae or groin. SKIN: No ulcer, rash, bleeding. JOINTS: No active deforming arthropathy. LABS: Labs at this time show WBC 5.5, hemoglobin 11.6. Other labs are noted. ASSESSMENT: 1. Recurrent syncope for evaluation. Rule out orthostatic hypotension. 2. Rule out vertebrobasilar insufficiency. 3. History of asthma. 4. History of gastroesophageal reflux disease. 5. History of gastrointestinal bleed. 6. Hard of hearing. 7. Hypertension. 8. Hyperlipidemia. 9. History of degenerative joint disease. 10.History of seizure disorder. 11.History of bilateral breast cancer. 12.History of bowel obstruction. 13.History of ESBL, Escherichia coli. 14.History of bariatric surgery. 15.History of bowel resection. 16.History of cholecystectomy. 17.History of pacemaker. 18.History of anxiety, depression. 19.FULL CODE. RECOMMENDATIONS AND DISCUSSION: In this 70-year-old woman who presented with multiple complex medical issues, we will monitor the patient closely, continue the current medications, continue symptomatic treatment. Orthostatic vitals. Neurology and cardiology evaluations. Resume the home medications. Prognosis is guarded because of multiple complex medical issues. Further recommendations to follow. A copy of this dictation is being forwarded to Dr. Menendez, who is the primary physician. We will obtain the full neurovascular workup also. MMODL / IJN: [id number] / MTDD
--- NOTE | 2021-01-05 20:45 | US ---
EXAMINATION TYPE: US carotid duplex BILAT DATE OF EXAM: 01/05/2021 COMPARISON: CT CLINICAL HISTORY: syncope. EC patient with syncope; pacemaker EXAM MEASUREMENTS: RIGHT: Peak Systolic Velocity (PSV) cm/sec ----- Right CCA: 61.0 ----- Right ICA: 51.4 ----- Right ECA: 57.0 ICA/CCA ratio: 0.8 RIGHT: End Diastole cm/sec ----- Right CCA: 13.0 ----- Right ICA: 16.5 ----- Right ECA: 0.0 LEFT: Peak Systolic Velocity (PSV) cm/sec ----- Left CCA: 58.1 ----- Left ICA: 60.7 ----- Left ECA: 57.6 ICA/CCA ratio: 1.0 LEFT: End Diastole cm/sec ----- Left CCA: 14.5 ----- Left ICA: 11.9 ----- Left ECA: 0.0 VERTEBRALS (direction of flow): Right Vertebral: Antegrade Left Vertebral: Antegrade Rhythm: Normal Very mild intimal wall thickening noted at bilateral carotid bifurcation and PSV is wnl bilaterally. Tortuous Proximal CCA is noted bilaterally. IMPRESSION: There is antegrade flow in the vertebral arteries. The images and measurements suggest less than 25% stenosis in both internal carotid arteries. Criteria for Assigning % of Stenosis / Diameter reduction (Estimation based on the indirect measurements of the internal carotid artery velocities (ICA PSV). 1. Normal (no stenosis)=ICA PSV < 125 cm/s: ratio < 2.0: ICA EDV<40 cm/s. 2. Less than 50% stenosis=ICA PSV < 125 cm/s: ratio < 2.0: ICA EDV<40 cm/s. 3. 50 to 69% stenosis=ICA PSV of 125 to 230 cm/s: ration 2.0 ? 4.0: ICA EDV 40-100 cm/s. 4. Greater than 70% stenosis to near occlusion= ICA PSV > 230 cm/s: ratio > 4.0: ICA EDV > 100 cm/s. 5. Near occlusion= ICA PSV velocities may be low or undetectable: variable ratio and ICA EDV. 6. Total occlusion=unable to detect flow.
[2021-01-05] MEDS: POTASSIUM CHLORIDE ER 20 MEQ TAB.ER PO SCH (21:23)
[2021-01-05] MEDS: levETIRAcetam 500 MG TAB PO SCH ×2 (21:23→21:25)
[2021-01-05] MEDS: ATORVASTATIN 10 MG TAB PO SCH (21:24)
[2021-01-05] MEDS: MECLIZINE 25 MG TAB PO SCH (21:24)
[2021-01-05] MEDS: carvediloL 3.125 MG TAB PO SCH (21:24)
[2021-01-05] MEDS: HEPARIN SODIUM,PORCINE/PF 5,000 UNIT/0.5 ML SYRINGE SQ SCH (21:25)
[2021-01-05] MEDS: buPROPion XL 150 MG TAB.ER.24H PO SCH (22:08)
[2021-01-05] MEDS: IBUPROFEN 800 MG TAB PO PRN (22:26)
[2021-01-05] MEDS: ZOLPIDEM 10 MG TAB PO PRN (23:06)
[2021-01-06] MEDS: LEVOTHYROXINE 50 MCG TAB PO SCH (05:33)
[2021-01-06] MEDS: SODIUM CHLORIDE 0.9% 1,000 ML IV SCH ×2 (06:16→12:13)
[2021-01-06] MEDS: IBUPROFEN 800 MG TAB PO PRN ×2 (08:53→22:16)
[2021-01-06] MEDS: POTASSIUM CHLORIDE ER 20 MEQ TAB.ER PO SCH ×2 (08:54→20:09)
[2021-01-06] MEDS: HEPARIN SODIUM,PORCINE/PF 5,000 UNIT/0.5 ML SYRINGE SQ SCH ×2 (08:54→20:08)
[2021-01-06] MEDS: CITALOPRAM HYDROBROMIDE 20 MG TAB PO SCH (08:54)
[2021-01-06] MEDS: ASPIRIN 81 MG PO SCH (08:55)
[2021-01-06] MEDS: PANTOPRAZOLE 40 MG TABLET PO SCH (08:55)
[2021-01-06] MEDS: carvediloL 3.125 MG TAB PO SCH ×2 (08:55→20:54)
[2021-01-06] MEDS: MECLIZINE 25 MG TAB PO SCH ×3 (08:56→20:09)
[2021-01-06] MEDS: levETIRAcetam 500 MG TAB PO SCH ×4 (08:56→21:09)
[2021-01-06] MEDS ORDERED: hydroCHLOROthiazide 25 MG TAB PO SCH (09:00)
[2021-01-06 11:40] LABS: Basophils # (A) 0.05 X 10*3/uL (0.00-0.10); Eosinophils # (A) 0.39 X 10*3/uL (0.04-0.35); Eosinophils % (A) 7.8 %; HCT 33.6 % (37.2-46.3); Lymphocytes # (A) 1.62 X 10*3/uL (0.90-5.00); Lymphocytes % (A) 32.2 %; MCH 22.5 pg (27.0-32.0); MCHC 29.8 g/dL (32.0-37.0); MCV 75.7 fL (80.0-97.0); Mean Platelet Volume 9.7 fL (9.5-12.2); Monocytes # (A) 0.47 X 10*3/uL (0.20-1.00); Monocytes % (A) 9.3 %; Neutrophils # (A) 2.49 X 10*3/uL (1.80-7.70); Neutrophils % (A) 49.5 %; Platelet Count 303 X 10*3/uL (140-440); RBC 4.44 X 10*6/uL (4.10-5.20); RDW 16.4 % (11.5-14.5); WBC 5.03 X 10*3/uL (4.50-10.00)
[2021-01-06 11:56] LABS: African American GFR (CKD) 106.3 (60.0-200.0); Albumin 3.6 g/dL (3.80-4.90); Albumin/Globulin Ratio 1.71 (1.60-3.17); Anion Gap 10.8 mmol/L (4.00-12.00); BUN/Creat Ratio 13.33 Ratio (12.00-20.00); Calcium 8.7 mg/dL (8.7-10.3); Carbon Dioxide 23.2 mmol/L (21.6-31.8); Globulin 2.1 g/dL (1.6-3.3); Non-African American GFR(CKD) 91.7 (60.0-200.0); Potassium 3.5 mmol/L (3.5-5.5); Total Bilirubin 0.7 mg/dL (0.2-1.2); Total Protein 5.7 g/dL (6.2-8.2)
--- NOTE | 2021-01-06 12:30 | ECHOF ---
Referral Reason:syncope MEASUREMENTS -------- HEIGHT: 152.4 cm WEIGHT: 69.4 kg BP: 127/71 RVIDd: 3.2 cm (< 3.3) FINDINGS -------- Sinus rhythm. Limited Study Overall left ventricular systolic function is normal with, an EF between 60 - 65 %. The aortic valve is trileaflet, and appears structurally normal. No aortic stenosis or regurgitation. There is trace mitral regurgitation. The tricuspid valve appears structurally normal. Unable to estimate RVSP due to inadequate TR jet s pectral doppler profile. Trace/mild (physiologic) pulmonic regurgitation. There is no pericardial effusion. CONCLUSIONS -------- 1. Overall left ventricular systolic function is normal with, an EF between 60 - 65 %. 2. The aortic valve is trileaflet, and appears structurally normal. No aortic stenosis or regurgitati on. 3. There is trace mitral regurgitation. 4. Trace/mild (physiologic) pulmonic regurgitation. 5. There is no pericardial effusion. RIBBON TIER: Pat Perez RDCS
--- NOTE | 2021-01-06 12:40 | P.PN ---
Subjective Progress Note Date: 01/06/21 The patient is seen at bedside. She feels about the same. She denies of any new neurological problems. Objective - Vital Signs Vital signs: Vital Signs Temp 98.2 F 01/06/21 07:00 Pulse 58 L 01/06/21 11:56 Resp 18 01/06/21 08:00 BP 108/70 01/06/21 11:56 Pulse Ox 94 L 01/06/21 07:00 Intake & Output 01/05/21 01/06/21 01/06/21 18:59 06:59 18:59 Weight 69.4 kg 69.4 kg Other: Voiding Method Toilet Toilet External Catheter External Catheter # Voids 2 - Exam GENERAL: The patient is lying in bed and is not in acute distress. NEUROLOGICAL: Higher mental function: The patient is awake, alert, oriented to self, place and time. Patient is following commands. No aphasia and no neglect. Cranial nerves: The pupils are round, equal and reactive to light and accommodation. Visual nunez are full to confrontation throughout. Extraocular movement is intact no nystagmus is noted. Facial sensation is normal to touch throughout. The facial strength is normal throughout. Hearing is normal bilaterally to hand rub. Tongue is midline and moved [id number] without any difficulty. No dysarthria is noted. Shoulder shrug is normal bilaterally. Motor: Gait is deferred. The strength is 5 over 5 throughout. Normal tone and bulk. Cerebellum: Normal finger to nose heel to saravia bilaterally. Sensation: Sensation is normal to touch throughout. Reflexes (right/left): 2+ throughout. Plantars are downgoing bilaterally. WORK-UP: Initial vital signs blood pressure of 127/79, heart rate is 64, respiratory of 18, temperature of 98.0 Fahrenheit oral pulse ox of 95% room air. CT of the head is reported as mild chronic-appearing periventricular white matter changes. CT of the cervical spine was reported as post cervical fusion. Mild foraminal narrowing from unvertebral joint. It seems the patient has anterior fusion of the C3-C4 EKG is reported as normal sinus rhythm. Normal EKG. CBC is the MCV 76.2. Otherwise white blood cell, hemoglobin and platelets are unremarkable. The chemistry panel C is unremarkable. Calcium is 9.4, magnesium 2.2, AST of 21 and ALT a fall which is within normal limits. Urinalysis is negative for urinary tract infection The primary team ordered carotid duplex and it's reported as very mild intimal wall thickening noted bilateral carotid bifurcation and Psv is within normal limits bilaterally. Tortuous proximal common carotid artery is noted bilaterally. Also the primary team ordered a 2-D echo and it's limited an ejection fraction of 60-65%. There is no pericardial effusion. Aortic valve is trileaflet and appears structurally normal. No aortic stenosis or regurgitation. - Labs CBC & Chem 7: 01/06/21 07:08 01/06/21 07:08 Labs: Abnormal Lab Results - Last 24 Hours (Table) 01/06/21 01/06/21 Range/Units 07:08 07:08 Hgb 10.0 L (12.0-15.0) g/dL Hct 33.6 L (37.2-46.3) % MCV 75.7 L (80.0-97.0) fL MCH 22.5 L (27.0-32.0) pg MCHC 29.8 L (32.0-37.0) g/dL RDW 16.4 H (11.5-14.5) % Eosinophils # 0.39 H (0.04-0.35) X 10*3/uL BUN 8.0 L (9.0-27.0) mg/dL Total Protein 5.7 L (6.2-8.2) g/dL Albumin 3.60 L (3.80-4.90) g/dL Assessment and Plan Assessment: * Recurrent Syncopal episod, possible vasovagal (occurs when bends forward and stands up and last few seconds). Not seizures. * Has a pacemaker (stated has not followed-up with cardiology team in a while) * I feel the patient is on polypharmacy and is on sedative medications that can increase risk of falls (Zolpidem, Ativan, Baclofen). * History of seizures (last seizure about 2 years ago). * History of cervical fusion (C3-C7) * Hypertension--presented normotensive * Hyperlipidemia * Anxiety disorder * Polypharmacy Plan: * I ordered orthostatic vitals. If negative consider tilt table test. * Primary team ordered a carotid duplex even though the patient had a carotid duplex about a 1 week ago (at her primary office and trying to obtain report) and the current study is normal. Also primary team ordered at 2-D echo and was a limited and it appears normal as well. * Recommend consideration of a Holter monitor or loop recorder. * An EEG is not warranted at this time. * Highly recommended to avoid any sedating as or narcotic which would affect the patient mentation and with increased risk of fall. * Recommend discontinuing Wellbutrin which decreases the threshold for seizures. * Every 4 neuro checks * Continue Keppra 1 g twice a day * On cardiac monitoring * Cardiology is consulted * Upon discharge the patient needs to follow-up with a neurologist (Dr. Manas Spears) as an outpatient within 2 weeks. * We'll defer the rest of the medical management of Primary team. The plan is discussed with the patient's nurse. Update: Orthostatic vitals: Supine blood pressure is 105/62 with a heart rate 58; sitting is a 108/70 with a heart rate is 68 and standing is 107/73 with heart rate is 70. Her Orthostatic is negative. Ronn Griffin M.D. Neuro-hospitalist Time with Patient: Less than 30
--- NOTE | 2021-01-06 18:15 | PN ---
PROGRESS NOTE DATE OF SERVICE: 01/06/2021 This 70-year-old woman who was admitted with recurrent syncope is being closely monitored at this time. The patient is also being evaluated by Cardiology and Neurology. No chest pain. No palpitations. No fever. PHYSICAL EXAMINATION: Alert and oriented x3. Pulse 60, blood pressure 106/68. No orthostatic changes. Respiration 18, temperature 98.6, pulse ox 91% on room air. HEENT: Conjunctivae normal. NECK: No jugular venous distention. CARDIOVASCULAR: S1, S2 muffled. RESPIRATION: Breath sounds diminished at the bases. No rhonchi. No crackles. ABDOMEN: Soft, nontender. LEGS: No edema. No swelling. NERVOUS SYSTEM: No focal deficit. LABS: WBC 5.2, hemoglobin 10. BUN is 8. Carotid Doppler showed very minimal intimal thickening noted in the bilateral carotid arteries. A limited 2D echo showed ejection fraction 60% to 65%. No pericardial effusion. ASSESSMENT: 1. Recurrent syncope for evaluation. No evidence orthostatic hypotension. Possibly vasovagal syncope. 2. Rule out vertebrobasilar insufficiency. 3. History of asthma. 4. History of gastroesophageal reflux disease. 5. History of gastrointestinal bleed. 6. Hard of hearing. 7. Hypertension. 8. Hyperlipidemia. 9. History of degenerative joint disease. 10.History of seizure disorder. 11.History of bilateral breast cancer. 12.History of bowel obstruction. 13.History ESBL Escherichia coli. 14.History of bariatric surgery. 15.History of bowel resection. 16.History of cholecystectomy. 17.History of pacemaker. 18.Anxiety, depression. 19.FULL CODE. RECOMMENDATIONS AND DISCUSSION: I recommend to continue current medications, continue with symptomatic treatment. Continue with antiplatelet agents. Continue the rest of the medications. DVT prophylaxis. Follow with Neurology and Cardiology. Prognosis guarded. Further recommendations to follow. MMODL / IJN: [id number] /
[2021-01-06 19:42] VITALS: RESP 16
[2021-01-06] MEDS: ATORVASTATIN 10 MG TAB PO SCH (20:09)
[2021-01-06] MEDS: buPROPion XL 150 MG TAB.ER.24H PO SCH (20:54)
[2021-01-06] MEDS: ZOLPIDEM 10 MG TAB PO PRN (22:16)
--- NOTE | 2021-01-06 23:08 | P.CRDCN ---
History of Present Illness History of present illness: HISTORY OF PRESENTING ILLNESS She is a pleasant 70-year-old female with a history of asthma, GERD, anemia, hypertension, hyperlipidemia, seizure disorder, appendectomy and frequent falls who presents secondary to recurrent fall. Patient admits that over the last 2-3 months she has had approximately 8 episodes where she will lean over and then stand up and then will suddenly fall. Occasionally she can catch herself however she has fallen approximately 8 times. She admits he should've these episodes is proceeded by bending over and then standing up. She denies any palpitations, chest pain, shortness of breath around that episodes. She denies any recent changes to her medications. Her blood pressures usually fairly well controlled. Workup showed white blood cell count 5.5, hemoglobin 11.6 and then down to 10.0 with MCV 76, platelets 367, sodium 138, creatinine 0.7, troponin less than 0.012 coronavirus not detected. EKG showed normal sinus rhythm, normal axis, no significant ST or T-wave abnormalities. Carotid ultrasound shows minimal plaquing. Limited echo was obtained which showed ejection fraction 60-65%, no significant aortic stenosis or regurgitation. This was a limited exam however on personal review there did appear to be a LVOT gradient of 16 mmHg peak. There does appear to be mild asymmetrical septal hypertrophy. May be some component of dynamic LVOT gradient. Orthostatic blood pressures this morning show 105/62 supine to 108/70 standing. REVIEW OF SYSTEMS At the time of my exam: CONSTITUTIONAL: Denies fever or chills. CARDIOVASCULAR: Denies chest pain, shortness of breath, orthopnea, PND or palpitations. RESPIRATORY: Denies cough. GASTROINTESTINAL: Denies abdominal pain, diarrhea, constipation, nausea or vomiting. MUSCULOSKELETAL: Denies myalgias. NEUROLOGIC: Denies numbness, tingling or weakness. ENDOCRINE: Denies fatigue, weight change, polydipsia or polyurina. GENITOURINARY: Denies burning, hematuria or urgency with micturation. HEMATOLOGIC: Denies history of anemia or bleeding. PHYSICAL EXAMINATION Vital signs reviewed. CONSTITUTIONAL: No apparent distress. HEENT: Head is normocephalic. Pupils are equal, round. Sclerae anicteric. Mucous membranes of the mouth are moist. No JVD. No carotid bruit. CHEST EXAMINATION: Lungs are clear to auscultation. No chest wall tenderness is noted on palpation or with deep breathing. HEART EXAMINATION: Regular rate and rhythm. S1, S2 heard. +2/6 murmur, no gallops or rub. ABDOMEN: Soft, nontender. Positive bowel sounds. EXTREMITIES: 2+ peripheral pulses, no lower extremity edema and no calf tenderness. NEUROLOGIC EXAMINATION: Patient is awake, alert and oriented x3. ASSESSMENT 1. Syncope related to orthostatic hypotension 2. Orthostatic hypotension 3. History of hypertension 4. Possible LVOT gradient 5. Seizure disorder 6. Anemia 7. Asthma PLAN Patient's syncopal episodes always appear to occur after she is bending over and then standing up quickly. There is a mild LVOT gradient and this may be exacerbated. Attempted dynamic maneuvers and there was some mild increase in her LVOT gradient. Either way we would recommend avoiding diuresis and we will stop hydrochlorothiazide. Blood pressure currently borderline low and would recommend mild permissive hypertension as opposed to causing syncopal episodes. She states she is also on amlodipine at home and we discussed stopping this going home. We will continue carvedilol at this time although low-dose as this may improve LVOT gradient. Continue with IV fluids and if remains stable likely discharge home tomorrow. Past Medical History Past Medical History: Asthma, Cancer, GERD/Reflux, GI Bleed, Hearing Disorder / Deafness, Hyperlipidemia, Hypertension, Osteoarthritis (OA), Seizure Disorder, Thyroid Disorder Additional Past Medical History / Comment(s): Last seizure over 2yr ago. Hard of hearing. MENIERES. Hx bilateral breast cancer 20 yrs ago. Hx bowel obstruction FROM DIVERTICULTIS. colitis. Exercise Induced Asthma. History of Any Multi-Drug Resistant Organisms: ESBL Date of last positivie culture/infection: 01/08/18 MDRO Source:: ESBL URINE Past Surgical History: Appendectomy, Back Surgery, Bariatric Surgery, Bowel Resection, Breast Surgery, Cholecystectomy, Heart Catheterization, Hernia Repair, Joint Replacement, Pacemaker, Tonsillectomy Additional Past Surgical History / Comment(s): PACEMAKER. LAP BAND INSERTED & REMOVED. GASTRIC SLEEVE (2016). BILATERAL TOTAL KNEE REPLACEMENTS, CERVICAL FUSION (2-7). BOWEL RESECTION (DIVERTICULITIS). INCISIONAL HERNIA REPAIR SEVERAL HEART CATHS-NO STENTS. BILATERAL BREAST LUMPECTOMIES (CANCER). Past Anesthesia/Blood Transfusion Reactions: Previous Problems w/ Anesthesia Additional Past Anesthesia/Blood Transfusion Reaction / Comment(s): Blood transfusion X3 -no reaction. "Low BP with anesthesia if takes BP med AM of surgery." Type of Cardiac Device: Permanent Pacemaker Device Placement Date:: 10/12/17 Past Psychological History: Anxiety, Depression Additional Psychological History / Comment(s): lives with sister, uses walker when up. Smoking Status: Never smoker Past Alcohol Use History: None Reported Past Drug Use History: None Reported - Past Family History Mother Family Medical History: Pulmonary Embolus Additional Family Medical History / Comment(s): Multiple TIA's. Father Family Medical History: Cancer Additional Family Medical History / Comment(s): Lung Cancer. Sister(s) Family Medical History: Cancer, Deep Vein Thrombosis (DVT), Pulmonary Embolus Additional Family Medical History / Comment(s): OVARIAN CANCER. Medications and Allergies Home Medications Medication Instructions Recorded Confirmed Type Levothyroxine Sodium [Synthroid] 50 mcg PO DAILY 11/11/17 01/05/21 History Meclizine [Antivert] 25 mg PO TID 11/11/17 01/05/21 History Omeprazole 20 mg PO BID 11/11/17 01/05/21 History Potassium Chloride ER [K-Dur 20] 20 meq PO BID 11/11/17 01/05/21 History buPROPion XL [Wellbutrin XL] 150 mg PO HS 11/11/17 01/05/21 History carvediloL [Coreg] 3.125 mg PO BID 11/11/17 01/05/21 History levETIRAcetam [Keppra] 1,000 mg PO BID 12/11/17 01/05/21 History Citalopram Hydrobromide [CeleXA] 40 mg PO DAILY 06/23/18 01/05/21 History Baclofen [Lioresal] 10 mg PO BID PRN #45 tablet 11/10/20 01/05/21 Rx Atorvastatin Calcium [Lipitor] 10 mg PO HS 11/24/20 01/05/21 History Chlorhexidine Gluconate [Periogard] 15 ml DENTAL BID 11/24/20 01/05/21 History Ibuprofen [Motrin] 800 mg PO Q8H PRN 11/24/20 01/05/21 History LORazepam 0.5 mg PO DAILY PRN 11/24/20 01/05/21 History Zolpidem Tartrate [Ambien] 10 mg PO HS PRN 11/24/20 01/05/21 History Aspirin EC [Ecotrin Low Dose] 81 mg PO DAILY 01/05/21 01/05/21 History hydroCHLOROthiazide [Hydrodiuril] 25 mg PO DAILY 01/05/21 01/05/21 History Allergies Allergy/AdvReac Type Severity Reaction Status Date / Time ciprofloxacin [From Cipro] Allergy Unknown Verified 01/05/21 13:07 ciprofloxacin HCl Allergy Unknown Verified 01/05/21 13:07 [From Cipro] codeine Allergy Rash/Hives Verified 01/05/21 13:07 hydrocodone bitartrate Allergy Rash/Hives Verified 01/05/21 13:07 [From Lortab] hydromorphone [From Dilaudid] Allergy Rash/Hives Verified 01/05/21 13:07 meperidine HCl [From Demerol] Allergy Rash/Hives Verified 01/05/21 13:07 morphine Allergy Rash/Hives Verified 01/05/21 13:07 propoxyphene napsylate Allergy Rash/Hives Verified 01/05/21 13:07 [From Darvocet-N 100] soy Allergy Anaphylaxis Verified 01/05/21 13:07 Sulfa (Sulfonamide Allergy Rash/Hives Verified 01/05/21 13:07 Antibiotics) tetracycline [Tetracycline] Allergy Rash/Hives Verified 01/05/21 13:07 tioconazole [From Monistat 1] Allergy Rash/Hives Verified 01/05/21 13:07 tramadol Allergy Rash/Hives. Verified 01/05/21 13:07 "THROAT CLOSING UP" hemp Allergy Rash/Hives Uncoded 01/05/21 10:44 Physical Exam Vitals: Vital Signs Temp Pulse Pulse Pulse Pulse Resp BP 01/06/21 19:39 98.0 F 59 L 16 112/66 01/06/21 14:32 98.6 F 60 18 106/68 01/06/21 14:00 69 68 70 58 L 18 01/06/21 11:56 68 70 58 L 108/70 01/06/21 08:00 69 18 01/06/21 07:00 98.2 F 69 18 122/73 01/06/21 02:44 62 16 01/06/21 02:00 97.8 F 62 16 127/71 BP BP Pulse Ox 01/06/21 19:39 91 L 01/06/21 14:32 91 L 01/06/21 14:00 01/06/21 11:56 107/73 105/62 01/06/21 08:00 01/06/21 07:00 94 L 01/06/21 02:44 01/06/21 02:00 92 L Intake and Output 01/06/21 01/06/21 01/06/21 06:59 14:59 22:59 Intake Total 300 300 Balance 300 300 Intake: Intake, IV Titration 300 Amount Sodium Chloride 0.9% 1, 300 000 ml @ 75 mls/hr IV . [id number] [facility] Rx#:[id number] Oral 300 Other: Voiding Method Toilet Toilet External Catheter External Catheter # Voids 2 2 1 Results 01/06/21 07:08 01/06/21 07:08 Cardiac Enzymes 01/06/21 Range/Units 07:08 AST 18 (13-35) U/L CBC 01/06/21 Range/Units 07:08 WBC 5.03 (4.50-10.00) X 10*3/uL RBC 4.44 (4.10-5.20) X 10*6/uL Hgb 10.0 L (12.0-15.0) g/dL Hct 33.6 L (37.2-46.3) % Plt Count 303 (140-440) X 10*3/uL Comprehensive Metabolic Panel 01/06/21 Range/Units 07:08 Sodium 139 (135-145) mmol/L Potassium 3.5 (3.5-5.5) mmol/L Chloride 105 (96-109) mmol/L Carbon Dioxide 23.2 (21.6-31.8) mmol/L BUN 8.0 L (9.0-27.0) mg/dL Creatinine 0.6 (0.6-1.5) mg/dL Glucose 85 (70-110) mg/dL Calcium 8.7 (8.7-10.3) mg/dL AST 18 (13-35) U/L ALT 11 (8-44) U/L Alkaline Phosphatase 103 (41-126) U/L Total Protein 5.7 L (6.2-8.2) g/dL Albumin 3.60 L (3.80-4.90) g/dL Current Medications Generic Name Dose Route Start Last Admin Trade Name Laurel PRN Reason Stop Dose Admin Aspirin 81 mg 01/06/21 09:00 01/06/21 08:55 Aspirin 81 Mg PO 81 mg DAILY ANTONIO Administration Atorvastatin Calcium 10 mg 01/05/21 21:00 01/06/21 20:09 Atorvastatin 10 Mg Tab PO 10 mg HS ANTONIO Administration Baclofen 10 mg 01/05/21 19:29 01/05/21 22:11 Baclofen 10 Mg Tab PO 10 mg BID PRN Administration Muscle Spasm Bupropion HCl 150 mg 01/05/21 21:00 01/06/21 20:54 Bupropion Xl 150 Mg Tab.Er.24h PO 150 mg HS ANTONIO Administration Carvedilol 3.125 mg 01/05/21 21:00 01/06/21 20:54 Carvedilol 3.125 Mg Tab PO 3.125 mg BID ANTONIO Administration Citalopram Hydrobromide 40 mg 01/06/21 09:00 01/06/21 08:54 Citalopram Hydrobromide 20 Mg Tab PO 40 mg DAILY ANTONIO Administration Heparin Sodium (Porcine) 5,000 unit 01/05/21 21:00 01/06/21 20:08 Heparin Sodium,Porcine/Pf 5,000 Unit/0.5 Ml Syringe SQ 5,000 unit Q12HR ANTONIO Administration Sodium Chloride 1,000 mls @ 75 mls/hr 01/05/21 15:45 01/06/21 12:13 Saline 0.9% IV 75 mls/hr .[id number] ANTONIO Administration Ibuprofen 800 mg 01/05/21 19:29 01/06/21 22:16 Ibuprofen 800 Mg Tab PO 800 mg Q8H PRN Administration Pain Levetiracetam 1,000 mg 01/05/21 21:00 01/06/21 20:54 Levetiracetam 500 Mg Tab PO 1,000 mg Q12HR ANTONIO Administration Levetiracetam 1,000 mg 01/05/21 21:00 01/06/21 21:09 Levetiracetam 500 Mg Tab PO Not Given BID ANTONIO Levothyroxine Sodium 50 mcg 01/06/21 06:30 01/06/21 05:33 Levothyroxine 50 Mcg Tab PO 50 mcg DAILY@0630 ANTONIO Administration Lorazepam 0.5 mg 01/05/21 19:29 Lorazepam 0.5 Mg Tab PO DAILY PRN Anxiety Meclizine HCl 25 mg 01/05/21 22:00 01/06/21 20:09 Meclizine 25 Mg Tab PO 25 mg TID ANTONIO Administration Naloxone HCl 0.2 mg 01/05/21 15:39 Naloxone 0.4 Mg/Ml 1 Ml Vial IV Q2M PRN Opioid Reversal Pantoprazole Sodium 40 mg 01/06/21 07:30 01/06/21 08:55 Pantoprazole 40 Mg Tablet PO 40 mg DAILY@0730 ANTONIO Administration Potassium Chloride 20 meq 01/05/21 21:00 01/06/21 20:09 Potassium Chloride Er 20 Meq Tab.Er PO 20 meq BID ANTONIO Administration Zolpidem Tartrate 10 mg 01/05/21 19:29 01/06/21 22:16 Zolpidem 10 Mg Tab PO 10 mg HS PRN Administration Insomnia Intake and Output 01/06/21 01/06/21 01/06/21 06:59 14:59 22:59 Intake Total 300 300 Balance 300 300 Intake: Intake, IV Titration 300 Amount Sodium Chloride 0.9% 1, 300 000 ml @ 75 mls/hr IV . [id number] [facility] Rx#:[id number] Oral 300 Other: Voiding Method Toilet Toilet External Catheter External Catheter # Voids 2 2 1 01/06/21 07:08 01/06/21 07:08
[2021-01-07] MEDS: SODIUM CHLORIDE 0.9% 1,000 ML IV SCH ×2 (02:07→08:57)
[2021-01-07] MEDS: LEVOTHYROXINE 50 MCG TAB PO SCH (05:55)
[2021-01-07 07:53] VITALS: BP 103/67; PULSE 67; TEMP 97.9
[2021-01-07] MEDS: PANTOPRAZOLE 40 MG TABLET PO SCH (08:56)
[2021-01-07] MEDS: CITALOPRAM HYDROBROMIDE 20 MG TAB PO SCH (08:56)
[2021-01-07] MEDS: HEPARIN SODIUM,PORCINE/PF 5,000 UNIT/0.5 ML SYRINGE SQ SCH (08:56)
[2021-01-07] MEDS: ASPIRIN 81 MG PO SCH (08:56)
[2021-01-07] MEDS: POTASSIUM CHLORIDE ER 20 MEQ TAB.ER PO SCH (08:56)
[2021-01-07] MEDS: MECLIZINE 25 MG TAB PO SCH (09:01)
[2021-01-07] MEDS: carvediloL 3.125 MG TAB PO SCH (09:01)
[2021-01-07] MEDS: levETIRAcetam 500 MG TAB PO SCH (09:02)
--- NOTE | 2021-01-07 10:42 | P.PN ---
Subjective She is a pleasant 70-year-old female with a history of asthma, GERD, anemia, hypertension, hyperlipidemia, seizure disorder, appendectomy and frequent falls who presents secondary to recurrent fall. Patient admits that over the last 2-3 months she has had approximately 8 episodes where she will lean over and then stand up and then will suddenly fall. Occasionally she can catch herself however she has fallen approximately 8 times. She admits he should've these episodes is proceeded by bending over and then standing up. She denies any palpitations, chest pain, shortness of breath around that episodes. She denies any recent changes to her medications. Her blood pressures usually fairly well controlled. Workup showed white blood cell count 5.5, hemoglobin 11.6 and then down to 10.0 with MCV 76, platelets 367, sodium 138, creatinine 0.7, troponin less than 0.012 coronavirus not detected. EKG showed normal sinus rhythm, normal axis, no significant ST or T-wave abnormalities. Carotid ultrasound shows minimal plaquing. Limited echo was obtained which showed ejection fraction 60-65%, no significant aortic stenosis or regurgitation. This was a limited exam however on personal review there did appear to be a LVOT gradient of 16 mmHg peak. There does appear to be mild asymmetrical septal hypertrophy. May be some component of dynamic LVOT gradient. Orthostatic blood pressures this morning show 105/62 supine to 108/70 standing. 01/07 Patient seen and examined. Patient receiving IV fluids at 75 mL an hour. Her hydrochlorothiazide was stopped as well as her home amlodipine was not started, on a low-dose of carvedilol. Orthostatics were checked again this morning which were negative however borderline blood pressures. She denies any chest pain or pressure, no shortness breath. REVIEW OF SYSTEMS At the time of my exam: CONSTITUTIONAL: Denies fever or chills. CARDIOVASCULAR: Denies chest pain, shortness of breath, orthopnea, PND or palpitations. RESPIRATORY: Denies cough. GASTROINTESTINAL: Denies abdominal pain, diarrhea, constipation, nausea or vomiting. MUSCULOSKELETAL: Denies myalgias. NEUROLOGIC: Denies numbness, tingling or weakness. ENDOCRINE: Denies fatigue, weight change, polydipsia or polyurina. GENITOURINARY: Denies burning, hematuria or urgency with micturation. HEMATOLOGIC: Denies history of anemia or bleeding. PHYSICAL EXAMINATION Vital signs reviewed. CONSTITUTIONAL: No apparent distress. HEENT: Head is normocephalic. Pupils are equal, round. Sclerae anicteric. Mucous membranes of the mouth are moist. No JVD. No carotid bruit. CHEST EXAMINATION: Lungs are clear to auscultation. No chest wall tenderness is noted on palpation or with deep breathing. HEART EXAMINATION: Regular rate and rhythm. S1, S2 heard. +2/6 murmur, no gallops or rub. ABDOMEN: Soft, nontender. Positive bowel sounds. EXTREMITIES: 2+ peripheral pulses, no lower extremity edema and no calf tenderness. NEUROLOGIC EXAMINATION: Patient is awake, alert and oriented x3. ASSESSMENT 1. Syncope related to orthostatic hypotension 2. Orthostatic hypotension 3. History of hypertension 4. Possible LVOT gradient 5. Seizure disorder 6. Anemia 7. Asthma PLAN Her orthostatics appear to be normal and most of her issues are when she bends over and then stands up. Would continue with holding hydrochlorothiazide as well as amlodipine and may continue with low-dose carvedilol. Patient appears stable for discharge home. Follow-up in office in 1 week. Objective - Vital Signs Vital signs: Vital Signs Temp 97.9 F 01/07/21 07:00 Pulse 67 01/07/21 07:00 Resp 16 01/07/21 07:00 BP 103/67 01/07/21 07:00 Pulse Ox 96 01/07/21 07:00 Intake & Output 01/06/21 01/07/21 01/07/21 18:59 06:59 18:59 Intake Total 300 300 180 Balance 300 300 180 Intake: Intake, IV Titration 300 Amount Sodium Chloride 0.9% 1, 300 000 ml @ 75 mls/hr IV . [id number] [facility] Rx#:[id number] Oral 300 180 Other: Voiding Method Toilet External Catheter # Voids 2 4 # Bowel Movements 0 - Labs CBC & Chem 7: 01/06/21 07:08 01/06/21 07:08 Labs: Abnormal Lab Results - Last 24 Hours (Table) 01/06/21 01/06/21 Range/Units 07:08 07:08 Hgb 10.0 L (12.0-15.0) g/dL Hct 33.6 L (37.2-46.3) % MCV 75.7 L (80.0-97.0) fL MCH 22.5 L (27.0-32.0) pg MCHC 29.8 L (32.0-37.0) g/dL RDW 16.4 H (11.5-14.5) % Eosinophils # 0.39 H (0.04-0.35) X 10*3/uL BUN 8.0 L (9.0-27.0) mg/dL Total Protein 5.7 L (6.2-8.2) g/dL Albumin 3.60 L (3.80-4.90) g/dL
--- NOTE | 2021-01-07 22:29 | DS ---
DISCHARGE SUMMARY DATE OF SERVICE: 01/07/2021 FINAL DIAGNOSES: 1. Recurrent syncope, possibly orthostatic hypotension and vasovagal syncope. 2. History of asthma. 3. Transient ischemic attack unlikely. 4. History of gastroesophageal reflux disease. 5. History of gastrointestinal bleed. 6. History of hard of hearing. 7. Hypertension. 8. Hyperlipidemia. 9. History of degenerative joint disease. 10.History of seizure disorder. 11.History of bilateral breast cancer. 12.History of bowel resection. 13.History ESBL E coli. 14.History of bariatric surgery. 15.History of bowel resection. 16.History of cholecystectomy. 17.History of pacemaker. 18.History of depression. 19.FULL CODE. DISCHARGE DISPOSITION: The patient will be discharged in stable condition with guarded prognosis. HISTORY OF PRESENT ILLNESS: This 70-year-old woman with a past medical history of multiple medical problems admitted with multiple episodes of syncope, orthostatic hypotension and vasovagal syncope is considered. Patient seen by Cardiology. Neurology cleared the patient for discharge. Basic labs are normal. On exam, vitals stable. Cardiovascular: S1, S2. Abdomen soft. Nervous system: No focal deficits. The diuretics are withheld. DISCHARGE ADVICE AND MEDICATIONS: 1. Diet is cardiac. 2. Activity limited until follow up. 3. Follow up with Dr. Menendez 2-3 days. 4. CBC, BMP. 5. Ambien 10 mg q.h.s. p.r.n. 6. Antivert 25 mg p.o. t.i.d. 7. Celexa 40 mg p.o. daily. 8. Coreg 3.125 mg p.o. b.i.d. 9. Ecotrin 81 mg daily. 10.K-Dur 20 mEq p.o. b.i.d. 11.Keppra 1000 mg p.o. b.i.d. 12.Lipitor 10 mg q.h.s. 13.Ativan 0.5 mg daily. 14.Motrin 800 mg q8 p.r.n. 15.Omeprazole 20 mg p.o. b.i.d. 16.Chlorhexidine 15 mL b.i.d. 17.Levothyroxine 50 mcg p.o. daily. 18.Bupropion XL 150 mg q.h.s. 19.Baclofen 10 mg b.i.d. p.r.n. Follow up with Cardiology and Neurology as recommended. Once again the patient discharged in stable condition. Guarded prognosis. MMODL / IJN: [id number] /
== END 2021-01-07 12:40 | disposition home or self-care (01) ==
LOC: EC 10:39 → 6NMEDSUR 15:56
PROVIDERS: ADMIT Hospitalist; ATTEND Hospitalist
DX: R55 Syncope and collapse (principal); J45.990 Exercise induced bronchospasm; K21.9 Gastro-esophageal reflux disease without esophagitis; Z87.19 Personal history of other diseases of the digestive system; H91.90 Unspecified hearing loss, unspecified ear; I10 Essential (primary) hypertension; E78.5 Hyperlipidemia, unspecified; M19.90 Unspecified osteoarthritis, unspecified site; G40.409 Other generalized epilepsy and epileptic syndromes, not intractable, without status epilepticus; G40.A09 Absence epileptic syndrome, not intractable, without status epilepticus; Z85.3 Personal history of malignant neoplasm of breast; Z98.84 Bariatric surgery status; Z90.49 Acquired absence of other specified parts of digestive tract; Z95.0 Presence of cardiac pacemaker; F32.9 Major depressive disorder, single episode, unspecified; F41.9 Anxiety disorder, unspecified; S00.03XA Contusion of scalp, initial encounter; D64.9 Anemia, unspecified; E03.9 Hypothyroidism, unspecified; H81.09 Meniere's disease, unspecified ear; Z20.822 Contact with and (suspected) exposure to COVID-19; Z16.24 Resistance to multiple antibiotics; R29.6 Repeated falls; W19.XXXA Unspecified fall, initial encounter; Z98.1 Arthrodesis status; Z96.653 Presence of artificial knee joint, bilateral; Z86.19 Personal history of other infectious and parasitic diseases; Z79.890 Hormone replacement therapy; Z79.899 Other long term (current) drug therapy; Z79.82 Long term (current) use of aspirin; Z88.1 Allergy status to other antibiotic agents; Z88.5 Allergy status to narcotic agent; Z88.2 Allergy status to sulfonamides; Z88.8 Allergy status to other drugs, medicaments and biological substances; Z91.018 Allergy to other foods; Z82.3 Family history of stroke; Z83.2 Family history of diseases of the blood and blood-forming organs and certain disorders involving the immune mechanism; Z80.1 Family history of malignant neoplasm of trachea, bronchus and lung; Z80.41 Family history of malignant neoplasm of ovary
CPT/HCPCS: 96361 ×4; 96372 ×3; 96360; 99285; 36415; 93005; 93308; 80053 ×2; 80177; 83735; 84484; 85025 ×2; 85610; 85730; 81003; 87635; 71046; 93880; 72125; 70450; G0378 ×3; J1644 ×3

== ENCOUNTER 2021-03-22 21:13 | Emergency (ER) | payer MEDICARE ==
[2021-03-22 22:57] VITALS: TEMP 98.7
[2021-03-22] MEDS ORDERED: DIPH,PERTUS(ACELL)TETVAC-LF 0.5 ML VIAL IM ONE (23:02)
[2021-03-22 23:35] LABS: Anisocytosis Slight; Basophils # (A) 0.1 k/uL (0-0.2); Basophils % (A) 1 %; Eosinophils # (A) 0.4 k/uL (0-0.7); Eosinophils % (A) 5 %; HCT 35.6 % (34.0-46.0); HGB 10.8 gm/dL (11.4-16.0); Hypochromasia Marked; Lymphocytes # (A) 2.3 k/uL (1.0-4.8); Lymphocytes % (A) 28 %; MCH 22.3 pg (25.0-35.0); MCHC 30.2 g/dL (31.0-37.0); MCV 73.9 fL (80.0-100.0); Microcytosis Slight; Monocytes # (A) 0.4 k/uL (0-1.0); Monocytes % (A) 5 %; Neutrophils # (A) 4.8 k/uL (1.3-7.7); Neutrophils % (A) 59 %; Platelet Count 353 k/uL (150-450); RBC 4.81 m/uL (3.80-5.40); RDW 16.5 % (11.5-15.5); WBC 8.1 k/uL (3.8-10.6)
--- NOTE | 2021-03-22 23:39 | XR ---
EXAMINATION TYPE: XR chest 2V DATE OF EXAM: 03/22/2021 COMPARISON: 01/05/2021 HISTORY: Syncope TECHNIQUE: FINDINGS: There is no heart failure nor confluent pneumonic infiltrate. Costophrenic angles are clear . There is left axillary pacemaker noted. There is no pleural effusion. The thorax is intact. IMPRESSION: No active cardiopulmonary disease. Normal heart. No change.
[2021-03-22 23:46] VITALS: RESP 16
[2021-03-22 23:47] LABS: Partial Thromboplastin Time 25.6 sec (22.0-30.0); Prothrombin Time 10.4 sec (9.0-12.0)
[2021-03-23 00:13] LABS: Albumin 4.3 g/dL (3.5-5.0); Calcium 9.3 mg/dL (8.4-10.2); Potassium 4.4 mmol/L (3.5-5.1); Total Bilirubin 0.7 mg/dL (0.2-1.3); Total Protein 7.3 g/dL (6.3-8.2)
--- NOTE | 2021-03-23 00:21 | CT ---
EXAMINATION TYPE: CT brain cspine wo con DATE OF EXAM: 03/23/2021 COMPARISON: 01/05/2021 HISTORY: Fall CT DLP: 1313.1 mGycm Automated exposure control for dose reduction was used. Images of the brain and cervical spine without contrast. Ventricles have normal size. There is no mass effect nor midline shift. There is no evidence of intra cranial hemorrhage. There is extensive right side mucosal thickening in the sphenoid sinus. Skull bas e is intact. There is normal aeration of the mastoid sinuses. The cervical vertebra have normal alignment. There is multilevel anterior fusion surgery from C3 to C 7. Posterior elements are intact. There is no compression fracture. IMPRESSION: No acute intracranial abnormality. Chronic right side sphenoid sinusitis similar to old exam. No foca l bone destruction. Multilevel cervical fusion surgery. No fracture. No change compared to old exam.
--- NOTE | 2021-03-23 02:30 | ED ---
Dizziness HPI - General Chief Complaint: Syncope Stated Complaint: Syncope,Head Injury Time Seen by Provider: 03/22/21 22:59 Source: patient, family Mode of arrival: ambulatory Limitations: no limitations - Related Data Home Medications Medication Instructions Recorded Confirmed Levothyroxine Sodium [Synthroid] 50 mcg PO DAILY 11/11/17 01/05/21 Meclizine [Antivert] 25 mg PO TID 11/11/17 01/05/21 Omeprazole 20 mg PO BID 11/11/17 01/05/21 Potassium Chloride ER [K-Dur 20] 20 meq PO BID 11/11/17 01/05/21 buPROPion XL [Wellbutrin XL] 150 mg PO HS 11/11/17 01/05/21 carvediloL [Coreg] 3.125 mg PO BID 11/11/17 01/05/21 levETIRAcetam [Keppra] 1,000 mg PO BID 12/11/17 01/05/21 Citalopram Hydrobromide [CeleXA] 40 mg PO DAILY 06/23/18 01/05/21 Atorvastatin Calcium [Lipitor] 10 mg PO HS 11/24/20 01/05/21 Chlorhexidine Gluconate [Periogard] 15 ml DENTAL BID 11/24/20 01/05/21 Ibuprofen [Motrin] 800 mg PO Q8H PRN 11/24/20 01/05/21 LORazepam 0.5 mg PO DAILY PRN 11/24/20 01/05/21 Zolpidem Tartrate [Ambien] 10 mg PO HS PRN 11/24/20 01/05/21 Aspirin EC [Ecotrin Low Dose] 81 mg PO DAILY 01/05/21 01/05/21 Previous Rx's Medication Instructions Recorded Baclofen [Lioresal] 10 mg PO BID PRN #45 tablet 11/10/20 Allergies Allergy/AdvReac Type Severity Reaction Status Date / Time ciprofloxacin [From Cipro] Allergy Unknown Verified 03/22/21 22:57 ciprofloxacin HCl Allergy Unknown Verified 03/22/21 22:57 [From Cipro] codeine Allergy Rash/Hives Verified 03/22/21 22:57 hydrocodone bitartrate Allergy Rash/Hives Verified 03/22/21 22:57 [From Lortab] hydromorphone [From Dilaudid] Allergy Rash/Hives Verified 03/22/21 22:57 meperidine HCl [From Demerol] Allergy Rash/Hives Verified 03/22/21 22:57 morphine Allergy Rash/Hives Verified 03/22/21 22:57 propoxyphene napsylate Allergy Rash/Hives Verified 03/22/21 22:57 [From Darvocet-N 100] soy Allergy Anaphylaxis Verified 03/22/21 22:57 Sulfa (Sulfonamide Allergy Rash/Hives Verified 03/22/21 22:57 Antibiotics) tetracycline [Tetracycline] Allergy Rash/Hives Verified 03/22/21 22:57 tioconazole [From Monistat 1] Allergy Rash/Hives Verified 03/22/21 22:57 tramadol Allergy Rash/Hives. Verified 03/22/21 22:57 "THROAT CLOSING UP" hemp Allergy Rash/Hives Uncoded 03/22/21 22:57 Review of Systems ROS Statement: Those systems with pertinent positive or pertinent negative responses have been documented in the HPI. ROS Other: All systems not noted in ROS Statement are negative. Past Medical History Past Medical History: Asthma, Cancer, GERD/Reflux, GI Bleed, Hearing Disorder / Deafness, Hyperlipidemia, Hypertension, Osteoarthritis (OA), Seizure Disorder, Thyroid Disorder Additional Past Medical History / Comment(s): Last seizure over 2yr ago. Hard of hearing. MENIERES. Hx bilateral breast cancer 20 yrs ago. Hx bowel obstruction FROM DIVERTICULTIS. colitis. Exercise Induced Asthma. History of Any Multi-Drug Resistant Organisms: ESBL Date of last positivie culture/infection: 01/08/18 MDRO Source:: ESBL URINE Past Surgical History: Appendectomy, Back Surgery, Bariatric Surgery, Bowel Resection, Breast Surgery, Cholecystectomy, Heart Catheterization, Hernia Repair, Joint Replacement, Pacemaker, Tonsillectomy Additional Past Surgical History / Comment(s): PACEMAKER. LAP BAND INSERTED & REMOVED. GASTRIC SLEEVE (2016). BILATERAL TOTAL KNEE REPLACEMENTS, CERVICAL FUSION (2-7). BOWEL RESECTION (DIVERTICULITIS). INCISIONAL HERNIA REPAIR SEVERAL HEART CATHS-NO STENTS. BILATERAL BREAST LUMPECTOMIES (CANCER). Past Anesthesia/Blood Transfusion Reactions: Previous Problems w/ Anesthesia Additional Past Anesthesia/Blood Transfusion Reaction / Comment(s): Blood transfusion X3 -no reaction. "Low BP with anesthesia if takes BP med AM of surgery." Type of Cardiac Device: Permanent Pacemaker Device Placement Date:: 10/12/17 Past Psychological History: Anxiety, Depression Smoking Status: Never smoker Past Alcohol Use History: None Reported Past Drug Use History: None Reported - Past Family History Mother Family Medical History: Pulmonary Embolus Additional Family Medical History / Comment(s): Multiple TIA's. Father Family Medical History: Cancer Additional Family Medical History / Comment(s): Lung Cancer. Sister(s) Family Medical History: Cancer, Deep Vein Thrombosis (DVT), Pulmonary Embolus Additional Family Medical History / Comment(s): OVARIAN CANCER. General Exam Limitations: no limitations Course Vital Signs 03/22/21 03/22/21 22:51 23:45 Temperature 98.7 F Pulse Rate 50 L 53 L Respiratory 24 16 Rate Blood Pressure 158/76 154/80 O2 Sat by Pulse 98 97 Oximetry Medical Decision Making - Lab Data Result diagrams: 03/22/21 23:43 03/22/21 23:43 Lab Results 03/22/21 03/22/21 03/22/21 Range/Units 23:43 23:43 23:43 WBC 8.1 (3.8-10.6) k/uL RBC 4.81 (3.80-5.40) m/uL Hgb 10.8 L (11.4-16.0) gm/dL Hct 35.6 (34.0-46.0) % MCV 73.9 L (80.0-100.0) fL MCH 22.3 L (25.0-35.0) pg MCHC 30.2 L (31.0-37.0) g/dL RDW 16.5 H (11.5-15.5) % Plt Count 353 (150-450) k/uL MPV 7.0 Neutrophils % 59 % Lymphocytes % 28 % Monocytes % 5 % Eosinophils % 5 % Basophils % 1 % Neutrophils # 4.8 (1.3-7.7) k/uL Lymphocytes # 2.3 (1.0-4.8) k/uL Monocytes # 0.4 (0-1.0) k/uL Eosinophils # 0.4 (0-0.7) k/uL Basophils # 0.1 (0-0.2) k/uL Hypochromasia Marked Anisocytosis Slight Microcytosis Slight PT 10.4 (9.0-12.0) sec INR 1.0 (<1.2) APTT 25.6 (22.0-30.0) sec Sodium 137 (137-145) mmol/L Potassium 4.4 (3.5-5.1) mmol/L Chloride 108 H (98-107) mmol/L Carbon Dioxide 21 L (22-30) mmol/L Anion Gap 8 mmol/L BUN 11 (7-17) mg/dL Creatinine 0.88 (0.52-1.04) mg/dL Est GFR (CKD-EPI)AfAm 77 (>60 ml/min/1.73 sqM) Est GFR (CKD-EPI)NonAf 67 (>60 ml/min/1.73 sqM) Glucose 95 (74-99) mg/dL Calcium 9.3 (8.4-10.2) mg/dL Total Bilirubin 0.7 (0.2-1.3) mg/dL AST 19 (14-36) U/L ALT 10 (4-34) U/L Alkaline Phosphatase 129 H (38-126) U/L Troponin I (0.000-0.034) ng/mL Total Protein 7.3 (6.3-8.2) g/dL Albumin 4.3 (3.5-5.0) g/dL 03/22/21 Range/Units 23:43 WBC (3.8-10.6) k/uL RBC (3.80-5.40) m/uL Hgb (11.4-16.0) gm/dL Hct (34.0-46.0) % MCV (80.0-100.0) fL MCH (25.0-35.0) pg MCHC (31.0-37.0) g/dL RDW (11.5-15.5) % Plt Count (150-450) k/uL MPV Neutrophils % % Lymphocytes % % Monocytes % % Eosinophils % % Basophils % % Neutrophils # (1.3-7.7) k/uL Lymphocytes # (1.0-4.8) k/uL Monocytes # (0-1.0) k/uL Eosinophils # (0-0.7) k/uL Basophils # (0-0.2) k/uL Hypochromasia Anisocytosis Microcytosis PT (9.0-12.0) sec INR (<1.2) APTT (22.0-30.0) sec Sodium (137-145) mmol/L Potassium (3.5-5.1) mmol/L Chloride (98-107) mmol/L Carbon Dioxide (22-30) mmol/L Anion Gap mmol/L BUN (7-17) mg/dL Creatinine (0.52-1.04) mg/dL Est GFR (CKD-EPI)AfAm (>60 ml/min/1.73 sqM) Est GFR (CKD-EPI)NonAf (>60 ml/min/1.73 sqM) Glucose (74-99) mg/dL Calcium (8.4-10.2) mg/dL Total Bilirubin (0.2-1.3) mg/dL AST (14-36) U/L ALT (4-34) U/L Alkaline Phosphatase (38-126) U/L Troponin I <0.012 (0.000-0.034) ng/mL Total Protein (6.3-8.2) g/dL Albumin (3.5-5.0) g/dL Disposition Clinical Impression: Syncope Disposition: HOME SELF-CARE Condition: Good Instructions (If sedation given, give patient instructions): Syncope (ED) Is patient prescribed a controlled substance at d/c from ED?: No Referrals: Cade Menendez DO [Primary Care Provider] - 1-2 days
[2021-03-23 02:38] VITALS: BP 141/87; PULSE 55
[2021-03-23 02:41] LABS: Appearance,Urine Clear (Clear); Bilirubin,Urine Negative (Negative); Blood,Urine Negative (Negative); Color,Urine Yellow; Glucose,Urine (UA) Negative (Negative); Ketones,Urine 1+ (Negative); Leukocyte Esterase,Urine Negative (Negative); Nitrite,Urine Negative (Negative); Protein,Urine Negative (Negative); Specific Gravity,Urine 1.015 (1.001-1.035); Urobilinogen,Urine <2.0 mg/dL (<2.0)
== END 2021-03-23 02:38 | disposition home or self-care (01) ==
LOC: EC 21:13
DX: R55 Syncope and collapse (principal); J45.909 Unspecified asthma, uncomplicated; E78.5 Hyperlipidemia, unspecified; I10 Essential (primary) hypertension; M19.90 Unspecified osteoarthritis, unspecified site; G40.909 Epilepsy, unspecified, not intractable, without status epilepticus; F41.9 Anxiety disorder, unspecified; F32.A Depression, unspecified; Z23 Encounter for immunization
CPT/HCPCS: 36415; 70450; 71046; 72125; 80053; 81003; 84484; 85025; 85610; 85730; 90471; 90715; 93005; 99284

== ENCOUNTER → 2021-03-28 | Outpatient (CLI) | payer MEDICARE ==
--- NOTE | 2021-03-29 10:40 | MM ---
Reason for exam: additional evaluation requested from prior study. Last mammogram was performed 10 years and 9 months ago. History: Patient is postmenopausal, has history of breast cancer at age 29, and is nulliparous. 9 benign excisional biopsies of the right breast, 1992. Lumpectomy of the left breast, 1978. Physical Findings: Nurse did not find any significant physical abnormalities on exam. MG 3D Diag Mammo W/Cad GINI Bilateral CC and MLO view(s) were taken. No prior studies available for comparison. The breast tissue is heterogeneously dense. This may lower the sensitivity of mammography. Finding: There is a typically benign 3 mm equal density (isodense), circumscribed round mass in the upper outer quadrant, posterior position of the left breast. Previous mammotome biopsy in the left breast. These results were verbally communicated with the patient and result sheet given to the patient on 03/28/21. ASSESSMENT: Benign, BI-RAD 2 RECOMMENDATION: Routine screening mammogram of both breasts in 1 year.
== END | disposition home or self-care (01) ==
LOC: RADMAMWWP 15:06
PROVIDERS: ATTEND Family Medicine
DX: N63.21 Unspecified lump in the left breast, upper outer quadrant (principal); Z85.3 Personal history of malignant neoplasm of breast; Z78.0 Asymptomatic menopausal state
CPT/HCPCS: 77066; G0279; 77062

== ENCOUNTER 2021-08-16 08:29 | Day surgery (SDC) | payer MEDICARE ==
[~2021-08-16 08:29] MED LIST changes: +LACTATED RINGERS 1,000 ML IV SCH; +LIDOCAINE 1% (10MG/ML) FOR IV START INTRADERMA PRN; -ceFAZolin 1,000 MG in SODIUM CHLORIDE 0.9% IRRIGATIO 1,000 ML IRRIGATION PRN
[2021-08-16 09:18] VITALS: TEMP 97.3
--- NOTE | 2021-08-16 10:06 | P.GSHP ---
History of Present Illness H&P Date: 08/16/21 Chief Complaint: Anemia, possible GI bleed Is a 71-year-old female who presents safer EGD and colonoscopy. Patient has issues anemia. Her last hemoglobin 9.5. Past Medical History Past Medical History: Asthma, Cancer, GERD/Reflux, GI Bleed, Hearing Disorder / Deafness, Hyperlipidemia, Hypertension, Osteoarthritis (OA), Seizure Disorder, Thyroid Disorder Additional Past Medical History / Comment(s): Last seizure over 8 MONTHS AGO. Hard of hearing. MENIERES. Hx bilateral breast cancer 20 yrs ago. Hx bowel obstruction FROM DIVERTICULTIS. colitis. Exercise Induced Asthma. History of Any Multi-Drug Resistant Organisms: ESBL Date of last positivie culture/infection: 01/08/18 MDRO Source:: ESBL URINE Past Surgical History: Appendectomy, Back Surgery, Bariatric Surgery, Bowel Resection, Breast Surgery, Cholecystectomy, Heart Catheterization, Hernia Repair, Joint Replacement, Pacemaker, Tonsillectomy Additional Past Surgical History / Comment(s): LOWER BACK SURGERY. PACEMAKER. LAP BAND INSERTED & REMOVED. GASTRIC SLEEVE (2016). BILATERAL TOTAL KNEE REPLACEMENTS, CERVICAL FUSION (2-7). BOWEL RESECTION (DIVERTICULITIS). INCISIONAL HERNIA REPAIR SEVERAL HEART CATHS-NO STENTS. BILATERAL BREAST LUMPECTOMIES (CANCER). Past Anesthesia/Blood Transfusion Reactions: Previous Problems w/ Anesthesia Additional Past Anesthesia/Blood Transfusion Reaction / Comment(s): Blood transfusion X3 -no reaction. "Low BP with anesthesia if takes BP med AM of surgery." MENIERES DISEASE. Type of Cardiac Device: Permanent Pacemaker Device Placement Date:: 10/12/17 Past Psychological History: Anxiety, Depression Additional Psychological History / Comment(s): lives with sister, uses walker when up. Smoking Status: Never smoker Past Alcohol Use History: None Reported Past Drug Use History: None Reported - Past Family History Mother Family Medical History: Pulmonary Embolus Additional Family Medical History / Comment(s): Multiple TIA's. Father Family Medical History: Cancer Additional Family Medical History / Comment(s): Lung Cancer. Sister(s) Family Medical History: Cancer, Deep Vein Thrombosis (DVT), Pulmonary Embolus Additional Family Medical History / Comment(s): OVARIAN CANCER. Medications and Allergies Home Medications Medication Instructions Recorded Confirmed Type Levothyroxine Sodium [Synthroid] 50 mcg PO QAM 11/11/17 08/16/21 History Meclizine [Antivert] 25 mg PO BID 11/11/17 08/16/21 History Omeprazole 20 mg PO BID 11/11/17 08/16/21 History Potassium Chloride ER [K-Dur 20] 20 meq PO BID 11/11/17 08/16/21 History buPROPion XL [Wellbutrin XL] 150 mg PO HS 11/11/17 08/16/21 History carvediloL [Coreg] 3.125 mg PO BID 11/11/17 08/16/21 History levETIRAcetam [Keppra] 1,000 mg PO BID 12/11/17 08/16/21 History Citalopram Hydrobromide [CeleXA] 40 mg PO QAM 06/23/18 08/16/21 History Atorvastatin Calcium [Lipitor] 10 mg PO HS 11/24/20 08/16/21 History Chlorhexidine Gluconate [Periogard] 15 ml DENTAL BID 11/24/20 08/16/21 History Ibuprofen [Motrin] 800 mg PO Q8H PRN 11/24/20 08/16/21 History LORazepam 0.5 mg PO HS 11/24/20 08/16/21 History Zolpidem Tartrate [Ambien] 10 mg PO HS 11/24/20 08/16/21 History Aspirin EC [Ecotrin Low Dose] 81 mg PO DAILY 01/05/21 08/16/21 History Baclofen [Lioresal] 10 mg PO BID 08/14/21 08/16/21 History Allergies Allergy/AdvReac Type Severity Reaction Status Date / Time ciprofloxacin [From Cipro] Allergy Unknown Verified 08/16/21 09:12 ciprofloxacin HCl Allergy Unknown Verified 08/16/21 09:12 [From Cipro] codeine Allergy Rash/Hives Verified 08/16/21 09:12 hydrocodone bitartrate Allergy Rash/Hives Verified 08/16/21 09:12 [From Lortab] hydromorphone [From Dilaudid] Allergy Rash/Hives Verified 08/16/21 09:12 meperidine HCl [From Demerol] Allergy Rash/Hives Verified 08/16/21 09:12 morphine Allergy Rash/Hives Verified 08/16/21 09:12 propoxyphene napsylate Allergy Rash/Hives Verified 08/16/21 09:12 [From Darvocet-N 100] soy Allergy Anaphylaxis Verified 08/16/21 09:12 Sulfa (Sulfonamide Allergy Rash/Hives Verified 08/16/21 09:12 Antibiotics) tetracycline [Tetracycline] Allergy Rash/Hives Verified 08/16/21 09:12 tioconazole [From Monistat 1] Allergy Rash/Hives Verified 08/16/21 09:12 tramadol Allergy Rash/Hives. Verified 08/16/21 09:12 "THROAT CLOSING UP" hemp Allergy Rash/Hives Uncoded 08/16/21 09:12 Surgical - Exam Vital Signs Temp Pulse Resp BP Pulse Ox 97.3 F L 80 18 148/81 96 08/16/21 09:17 08/16/21 09:17 08/16/21 09:17 08/16/21 09:17 08/16/21 09:17 - General well developed, well nourished, no distress - Eyes PERRL - ENT normal pinna - Neck no masses - Respiratory normal expansion - Cardiovascular Rhythm: regular - Abdomen Abdomen: soft, non tender Assessment and Plan Assessment: Anemia, possible GI bleed. We'll perform EGD and colonoscopy.
[2021-08-16] MEDS ORDERED: PROPOFOL 10 MG/ML 20 ML VIAL IV ONE (10:09)
[2021-08-16] MEDS ORDERED: LIDOCAINE 2% INJ 20 MG/ML (2 ML VIAL) ONE (10:09)
--- NOTE | 2021-08-16 10:27 | P.OP ---
Date of Procedure: 08/16/21 Preoperative Diagnosis: Anemia GI bleed Postoperative Diagnosis: Antral gastritis Diverticulosis Procedure(s) Performed: EGD Colonoscopy Anesthesia: MAC Surgeon: Doroteo Yancey Pathology: other (Antrum) Condition: stable Disposition: PACU Description of Procedure: The patient's placed on the endoscopy table in the lateral position. She received IV sedation. The gastro-/oropharynx past esophagus and stomach. Scope was then placed through the pylorus. The first and second portion of the duodenum appeared normal. The scope was then brought back the antrum was inflamed. Biopsies performed. The patient had previous gastric sleeve. He sleeps.. To be without inflammation or obstruction. The GE junction was at 40 cm. The distal esophagus appeared normal. The proximal esophagus appeared normal. Scope withdrawn for patient. Next digital rectal exam was performed. This revealed no ebonized. The flexible colonoscope was then placed patient anus and passed throughout the entire colon. Ileocecal valve was visualized. The cecum, ascending and transverse colon appeared normal. In the descending and; there is mild diverticular changes. Scope was then brought back the rectum and this appeared normal. The scope withdrawn for patient.
[2021-08-16 10:32] VITALS: RESP 16
[2021-08-16 10:55] VITALS: BP 160/74; PULSE 63
== END 2021-08-16 11:12 | disposition home or self-care (01) ==
LOC: ORWHC2ENDO 08:29
PROVIDERS: ATTEND Surgery
DX: D64.9 Anemia, unspecified (principal); K29.60 Other gastritis without bleeding; E78.5 Hyperlipidemia, unspecified; F32.A Depression, unspecified; F41.9 Anxiety disorder, unspecified; G40.909 Epilepsy, unspecified, not intractable, without status epilepticus; H81.09 Meniere's disease, unspecified ear; I10 Essential (primary) hypertension; K21.9 Gastro-esophageal reflux disease without esophagitis; K29.50 Unspecified chronic gastritis without bleeding; M19.90 Unspecified osteoarthritis, unspecified site; Z79.1 Long term (current) use of non-steroidal anti-inflammatories (NSAID); Z79.82 Long term (current) use of aspirin; Z80.1 Family history of malignant neoplasm of trachea, bronchus and lung; Z85.3 Personal history of malignant neoplasm of breast; Z88.1 Allergy status to other antibiotic agents; Z88.2 Allergy status to sulfonamides; Z88.5 Allergy status to narcotic agent; Z88.8 Allergy status to other drugs, medicaments and biological substances; Z90.49 Acquired absence of other specified parts of digestive tract; Z95.0 Presence of cardiac pacemaker; Z98.84 Bariatric surgery status
CPT/HCPCS: 45378; 43239; 88305; J2704; J2001

== ENCOUNTER → 2022-08-05 | Outpatient (CLI) | payer MEDICARE ==
--- NOTE | 2022-08-05 14:37 | MM ---
Reason for Exam: Additional evaluation requested from prior study. Last mammogram was performed 1 year(s) and 4 month(s) ago. Patient History: Menarche at age 16. Patient has no children. Postmenopausal. Breast cancer, left, age 39. Breast cancer, right, age 45. 1992, Benign Excisional Biopsy on the right side. 1992, Benign Excisional Biopsy on the right side. 1992, Benign Excisional Biopsy on the right side. 1992, Benign Excisional Biopsy on the right side. 1992, Benign Excisional Biopsy on the right side. 1992, Benign Excisional Biopsy on the right side. 1992, Benign Excisional Biopsy on the right side. 1992, Benign Excisional Biopsy on the right side. 1978, Lumpectomy on the Left side. 1992, Benign Excisional Biopsy on the right side. Prior Study Comparison: 03/21/2006 Bilateral Screening Mammogram, [facility]. 04/03/2007 Bilateral Screening Mammogram, [facility]. 06/27/2010 Bilateral Screening Mammogram, [facility]. 03/28/2021 Bilateral Diagnostic Mammogram, [facility]. Tissue Density: The breast tissue is heterogeneously dense. This may lower the sensitivity of mammography. Findings: Analyzed By CAD. Asymmetric nodular densities identified upper-outer right breast. The nodule noted in zone B is 7 cm from the nipple with the nodular area at zone C residing approximately 12 cm from the nipple. Ultrasound is recommended. Overall Assessment: Incomplete: need additional imaging evaluation, BI-RAD 0 Management: Diagnostic Breast Ultrasound of the right breast. A clinical breast exam by your physician is recommended on an annual basis and results should be correlated with mammographic findings. This exam should not preclude additional follow-up of suspicious palpable abnormalities. Results were given to the patient verbally at the time of exam. Electronically signed and approved by: Matthew Kaur M.D. Radiologis
--- NOTE | 2022-08-05 14:38 | USB ---
Reason for Exam: Additional evaluation requested from abnormal screening. Patient History: Menarche at age 16. Patient has no children. Postmenopausal. Breast cancer, left, age 39. Breast cancer, right, age 45. 1992, Benign Excisional Biopsy on the right side. 1992, Benign Excisional Biopsy on the right side. 1992, Benign Excisional Biopsy on the right side. 1992, Benign Excisional Biopsy on the right side. 1992, Benign Excisional Biopsy on the right side. 1992, Benign Excisional Biopsy on the right side. 1992, Benign Excisional Biopsy on the right side. 1992, Benign Excisional Biopsy on the right side. 1978, Lumpectomy on the Left side. 1992, Benign Excisional Biopsy on the right side. Technique: Method: Targeted. Prior Study Comparison: 04/03/2007 Bilateral Screening Mammogram, [facility]. 06/27/2010 Bilateral Screening Mammogram, [facility]. 03/28/2021 Bilateral Diagnostic Mammogram, [facility]. Findings: The upper outer quadrant of the right breast, the axilla of the right breast and the retroareolar of the right breast were scanned. No solid or cystic masses are identified. Given the mammographic findings a stereotactic core biopsy is recommended two sites right breast. Overall Assessment: Suspicious, BI-RAD 4 Management: Stereotactic Core Biopsy of the right breast. A clinical breast exam by your physician is recommended on an annual basis and results should be correlated with mammographic findings. This exam should not preclude additional follow-up of suspicious palpable abnormalities. Results were given to the patient verbally at the time of exam. Electronically signed and approved by: Matthew Kaur M.D. Radiologis
--- NOTE | 2022-08-05 15:51 | BD ---
EXAMINATION TYPE: Axial Bone Density DATE OF EXAM: 08/05/2022 CLINICAL HISTORY: 72 years old Female. ICD-10 CODE: Z78.0 ASYMPTOMATIC MENOPAUSAL STATE Height: 59.5 in Weight: 166 lbs FRAX RISK QUESTIONS: Family History (Parent hip fracture): yes mother History of Fracture in Adulthood: rt ankle age 68 Secondary Osteoporosis: 3. Menopause before 45: age 39 RISK FACTORS HISTORY OF: Surgery to Spine: l-spine surgery age 68 Family History of Osteoporosis: yes mother Active: moderate Diet low in dairy products/other sources of calcium: yes Postmenopausal woman: age 39 Lost more than 2 inches in height since high school: yes 3" Frequent falls: yes due to stumbling MEDICATIONS: Thyroid Medications: yes Which medication: Levothyroxine How Lon+ years Osteoporosis Medications: not now Which medication: Fosamax How Lon year Additional Medications: depression, anxiety meds, diverticulitis meds, meclizine, cholesterol meds, Additional History: breast cancer EXAM MEASUREMENTS: Bone mineral densitometry was performed using the [employer] System. l-spine surgery Bone mineral density about the R hip (g/cm2): 0.804 Bone mineral density about the L hip (g/cm2): 0.832 T Score values are as follows: -----R Neck: -2.2 -----L Neck: -1.7 -----R Total: -1.6 -----L Total: -1.4 Z Score values are as follows: -----R Neck: -0.6 -----L Neck: 0.0 -----R Total: -0.2 -----L Total: 0.0 Bone mineral density baseline Bone mineral density about the L Wrist (g/cm2): 0.555 T Score values are as follows: -----Dist. R+U: -2.6 -----Prox. R+U: -1.5 -----Radius total: -2.0 Z Score values are as follows: -----Dist. R+U: -0.4 -----Prox. R+U: 0.6 -----Radius total: 0.1 Bone mineral density baseline FRAX%s: The graph provided illustrates a 32.0% chance for a major osteoporotic fx and a 15.3% chance for the hips probability for fx in 10 years time. IMPRESSION: Osteopenia (T Score between -2.5 and -1). There is slightly increased risk of fracture and the patient may be considered for treatment. Re-Screen 2-5 years. NOTE: T-SCORE=SD OF THE YOUNG ADULT MEAN.
== END | disposition home or self-care (01) ==
LOC: RADMAMWWP 12:09
PROVIDERS: ATTEND Family Medicine
DX: R92.8 Other abnormal and inconclusive findings on diagnostic imaging of breast (principal); M85.89 Other specified disorders of bone density and structure, multiple sites; M81.0 Age-related osteoporosis without current pathological fracture; Z78.0 Asymptomatic menopausal state
CPT/HCPCS: 77080; 77066; 76642; G0279; 77062

== ENCOUNTER → 2022-09-02 | Day surgery (SDC) | payer MEDICARE ==
[2022-09-02 10:15] VITALS: BP 130/81; PULSE 60; RESP 12; TEMP 97.9
--- NOTE | 2022-09-02 17:13 | MM ---
Findings: There appear to be denser breasts than expected on multiple images while working with the examination. Attempts to localize the densities were unsuccessful in orthogonal planes. Each lesion was attempted be localized separately in both craniocaudal and mediolateral views. Targeted areas appeared to be in the correct region based on reference benign calcifications, although discrete masses corresponding to previous mammographic findings could not be located. The procedure was aborted. This was discussed with the patient. Alternative method for biopsy would be stereotactic core biopsy by tomographic mammography guidance. Recommend: Reschedule biopsy using tomographic mammography guidance, 2 locations upper outer right breast. Management: Stereotactic Core Biopsy of the right breast. A negative mammogram report should not preclude additional follow up of suspicious palpable abnormalities. Patient should continue monthly self breast exam. A clinical breast exam by your physician is recommended on an annual basis and results should be correlated with mammographic findings. Electronically signed and approved by: Hudson Miranda D.O. Radiologis
== END ==
LOC: RADMAMWWP 09:45
PROVIDERS: ATTEND Surgery
DX: Z53.8 Procedure and treatment not carried out for other reasons (principal); R92.8 Other abnormal and inconclusive findings on diagnostic imaging of breast

== ENCOUNTER 2023-05-09 16:16 | Emergency (ER) | payer OTHER, MEDICARE ==
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
[2023-05-09] MEDS ORDERED: KETOROLAC 15 MG/ML 1 ML VIAL IM STA (17:41)
--- NOTE | 2023-05-09 19:05 | XR ---
EXAMINATION TYPE: XR shoulder complete RT DATE OF EXAM: 05/09/2023 CLINICAL HISTORY: pain TECHNIQUE: Three views of the right shoulder are obtained. COMPARISON: None FINDINGS: There is no acute fracture/dislocation evident. The acromioclavicular and glenohumeral kaycee int spaces appear within normal limits. The visualized ribs are intact and unremarkable. IMPRESSION: 1. There is no acute fracture or dislocation. ICD 10 NO FRACTURE, INITIAL EVALUATION
--- NOTE | 2023-05-09 19:06 | XR ---
EXAMINATION TYPE: XR thoracic spine 2V DATE OF EXAM: 05/09/2023 CLINICAL HISTORY: pain TECHNIQUE: Frontal, lateral, and swimmer's view of thoracic spine are obtained. COMPARISON: None. FINDINGS: Thoracic spine show satisfactory alignment without evidence of acute fracture or dislocatio n. Vertebral body heights are preserved. [id number] degenerative disc space narrowing. Visua lized ribs are unremarkable. IMPRESSION: No acute fracture or dislocation is seen in the thoracic spine. ICD 10 NO FRACTURE, INIT IAL EVALUATION
[2023-05-09 20:08] VITALS: BP 160/75; PULSE 63; RESP 16; TEMP 97.5
== END 2023-05-09 22:06 | disposition home or self-care (01) ==
LOC: EC 16:16
DX: M25.511 Pain in right shoulder (principal); J45.909 Unspecified asthma, uncomplicated; E07.9 Disorder of thyroid, unspecified; K21.9 Gastro-esophageal reflux disease without esophagitis; M19.90 Unspecified osteoarthritis, unspecified site; I10 Essential (primary) hypertension; E78.5 Hyperlipidemia, unspecified; F41.9 Anxiety disorder, unspecified; F32.A Depression, unspecified; Z79.890 Hormone replacement therapy; Z79.1 Long term (current) use of non-steroidal anti-inflammatories (NSAID); Z79.82 Long term (current) use of aspirin; Z79.899 Other long term (current) drug therapy; Z88.5 Allergy status to narcotic agent; Z88.6 Allergy status to analgesic agent; Z88.1 Allergy status to other antibiotic agents; Z88.8 Allergy status to other drugs, medicaments and biological substances; Z88.2 Allergy status to sulfonamides; Z91.018 Allergy to other foods; V89.2XXA Person injured in unspecified motor-vehicle accident, traffic, initial encounter; Y92.411 Interstate highway as the place of occurrence of the external cause
CPT/HCPCS: 72070; 73030; 72125; 70450; 99285; 96372; J1885

== ENCOUNTER 2023-08-21 12:42 | Emergency (ER) | payer MEDICARE ==
[2023-08-21 13:07] VITALS: RESP 16; TEMP 98.3
--- NOTE | 2023-08-21 13:24 | ED ---
Weakness HPI - General Chief complaint: Headache Stated complaint: Fall-headache Time Seen by Provider: 08/21/23 12:58 Source: patient, RN notes reviewed, old records reviewed Mode of arrival: wheelchair Limitations: no limitations - History of Present Illness Initial comments: This is 73-year-old female to the ER for evaluation today. Patient presents to the emergency room today for evaluation regards to possible seizure activity altered mental status. She has multiple recent falls concern for cause of falls presented to the ER today. She has no complaints otherwise MD Complaint: generalized weakness, lack of energy, difficulty walking -: days(s) Location: generalized Severity: severe Severity scale (1-10): 10 Consistency: constant Improves with: none Worsens with: none Context: history of similar, depression Associated Symptoms: denies other symptoms - Related Data Home Medications Medication Instructions Recorded Confirmed Levothyroxine Sodium [Synthroid] 50 mcg PO DAILY 11/11/17 08/21/23 Meclizine [Antivert] 25 mg PO TID 11/11/17 08/21/23 Omeprazole 20 mg PO BID 11/11/17 08/21/23 Potassium Chloride ER [K-Dur 20] 20 meq PO BID 11/11/17 08/21/23 buPROPion XL [Wellbutrin XL] 150 mg PO HS 11/11/17 08/21/23 carvediloL [Coreg] 3.125 mg PO BID 11/11/17 08/21/23 Citalopram Hydrobromide [CeleXA] 40 mg PO DAILY 06/23/18 08/21/23 Atorvastatin Calcium [Lipitor] 10 mg PO HS 11/24/20 08/21/23 Ibuprofen [Motrin] 800 mg PO TID 11/24/20 08/21/23 Zolpidem Tartrate [Ambien] 10 mg PO HS 11/24/20 08/21/23 Baclofen [Lioresal] 10 mg PO BID 08/14/21 08/21/23 LORazepam [Ativan] 1 mg PO HS 08/21/23 08/21/23 levETIRAcetam [Keppra] 500 mg PO TID 08/21/23 08/21/23 Allergies Allergy/AdvReac Type Severity Reaction Status Date / Time ciprofloxacin [From Cipro] Allergy Unknown Verified 08/21/23 13:50 ciprofloxacin HCl Allergy Unknown Verified 08/21/23 13:50 [From Cipro] codeine Allergy Rash/Hives Verified 08/21/23 13:50 hydrocodone bitartrate Allergy Rash/Hives Verified 08/21/23 13:50 [From Lortab] hydromorphone [From Dilaudid] Allergy Rash/Hives Verified 08/21/23 13:50 meperidine HCl [From Demerol] Allergy Rash/Hives Verified 08/21/23 13:50 morphine Allergy Rash/Hives Verified 08/21/23 13:50 propoxyphene napsylate Allergy Rash/Hives Verified 08/21/23 13:50 [From Darvocet-N 100] soy Allergy Anaphylaxis Verified 08/21/23 13:50 Sulfa (Sulfonamide Allergy Rash/Hives Verified 08/21/23 13:50 Antibiotics) tetracycline [Tetracycline] Allergy Rash/Hives Verified 08/21/23 13:50 tioconazole [From Monistat 1] Allergy Rash/Hives Verified 08/21/23 13:50 tramadol Allergy Rash/Hives. Verified 08/21/23 13:50 "THROAT CLOSING UP" hemp Allergy Rash/Hives Uncoded 09/02/22 10:04 Review of Systems ROS Statement: Those systems with pertinent positive or pertinent negative responses have been documented in the HPI. ROS Other: All systems not noted in ROS Statement are negative. Past Medical History Past Medical History: Asthma, Cancer, GERD/Reflux, GI Bleed, Hearing Disorder / Deafness, Hyperlipidemia, Hypertension, Osteoarthritis (OA), Seizure Disorder, Thyroid Disorder Additional Past Medical History / Comment(s): Last seizure over 6 MONTHS AGO. Hard of hearing. MENIERES. Hx bilateral breast cancer 20 yrs ago. Hx bowel obstruction FROM DIVERTICULTIS. colitis. Exercise Induced Asthma. History of Any Multi-Drug Resistant Organisms: ESBL Date of last positivie culture/infection: 01/08/18 MDRO Source:: ESBL URINE Past Surgical History: Appendectomy, Back Surgery, Bariatric Surgery, Bowel Resection, Breast Surgery, Cholecystectomy, Heart Catheterization, Hernia Repair, Joint Replacement, Pacemaker, Tonsillectomy Additional Past Surgical History / Comment(s): LOWER BACK SURGERY. PACEMAKER. LAP BAND INSERTED & REMOVED. GASTRIC SLEEVE (2016). BILATERAL TOTAL KNEE REPLACEMENTS, CERVICAL FUSION (2-7). BOWEL RESECTION (DIVERTICULITIS). INCISIONAL HERNIA REPAIR SEVERAL HEART CATHS-NO STENTS. BILATERAL BREAST LUMPECTOMIES (CANCER). Past Anesthesia/Blood Transfusion Reactions: Previous Problems w/ Anesthesia Additional Past Anesthesia/Blood Transfusion Reaction / Comment(s): Blood transfusion X3 -no reaction. "Low BP with anesthesia if takes BP med AM of surgery." MENIERES DISEASE. Type of Cardiac Device: Permanent Pacemaker Device Placement Date:: 10/12/17 Past Psychological History: Anxiety, Depression Smoking Status: Never smoker Past Alcohol Use History: None Reported Past Drug Use History: None Reported - Past Family History Mother Family Medical History: Pulmonary Embolus Additional Family Medical History / Comment(s): Multiple TIA's. Father Family Medical History: Cancer Additional Family Medical History / Comment(s): Lung Cancer. Sister(s) Family Medical History: Cancer, Deep Vein Thrombosis (DVT), Pulmonary Embolus Additional Family Medical History / Comment(s): OVARIAN CANCER. General Exam Limitations: no limitations General appearance: alert, in no apparent distress Head exam: Present: atraumatic, normocephalic, normal inspection Eye exam: Present: normal appearance, PERRL, EOMI. Absent: scleral icterus, conjunctival injection, periorbital swelling ENT exam: Present: normal exam, mucous membranes moist Neck exam: Present: normal inspection. Absent: tenderness, meningismus, lymphadenopathy Respiratory exam: Present: normal lung sounds bilaterally. Absent: respiratory distress, wheezes, rales, rhonchi, stridor Cardiovascular Exam: Present: regular rate, normal rhythm, normal heart sounds. Absent: systolic murmur, diastolic murmur, rubs, gallop, clicks GI/Abdominal exam: Present: soft, normal bowel sounds. Absent: distended, tenderness, guarding, rebound, rigid Extremities exam: Present: normal inspection, full ROM, normal capillary refill. Absent: tenderness, pedal edema, joint swelling, calf tenderness Back exam: Present: normal inspection Neurological exam: Present: alert, oriented X3, CN II-XII intact Psychiatric exam: Present: normal affect, normal mood Skin exam: Present: warm, dry, intact, normal color. Absent: rash Course Vital Signs 08/21/23 08/21/23 08/21/23 12:43 16:07 17:15 Temperature 98.3 F Pulse Rate 58 L 57 L 76 Respiratory 16 16 16 Rate Blood Pressure 145/83 167/77 133/56 O2 Sat by Pulse 95 96 98 Oximetry - Reevaluation(s) Reevaluation #1: Medical record is reviewed Reevaluation #2: Patient symptoms are unchanged Reevaluation #3: Patient informed of results and questions answered Reevaluation #4: Was pt. sent in by a medical professional or institution (, PA, CENTER REP, urgent care, hospital, or senior care...) When possible be specific @ -no Did you speak to anyone other than the patient for history (EMS, parent, family, police, friend...)? What history was obtained from this source @ -no Did you review nursing and triage notes (agree or disagree)? Why? @ -agree Are old charts reviewed (outside hosp., previous admission, EMS record, old EKG, old radiological studies, urgent care reports/EKG's, senior care records)? Report findings @ -yes Differential Diagnosis (chest pain, altered mental status, abdominal pain women, abdominal pain men, vaginal bleeding, weakness, fever, dyspnea, syncope, headache, dizziness, GI bleed, back pain, seizure, CVA, palpatations, mental health, musculoskeletal)? @ -prior EKG interpreted by me (3pts min.). @ -yes X-rays interpreted by me (1pt min.). @ -no CT interpreted by me (1pt min.). @ -yes negative for acute disease U/S interpreted by me (1pt. min.). @ -no What testing was considered but not performed or refused? (CT, X-rays, U/S, labs)? Why? @ -none What meds were considered but not given or refused? Why? @ -none Did you discuss the management of the patient with other professionals (professionals i.e. , EDD, CENTER REP, lab, RT, psych nurse, delinquency prevention social worker, oil processing technician, teacher, information security officer, field nurse case manager)? Give summary @ -no Was smoking cessation discussed for >3mins.? @ -no Was critical care preformed (if so, how long)? @ -no Were there social determinants of health that impacted care today? How? (Homelessness, low income, unemployed, alcoholism, drug addiction, transportation, low edu. Level, literacy, decrease access to med. care, fdc, rehab)? @ -none Was there de-escalation of care discussed even if they declined (Discuss DNR or withdrawal of care, Hospice)? DNR status @ -no What co-morbidities impacted this encounter? (DM, HTN, Smoking, COPD, CAD, Cancer, CVA, ARF, Chemo, Hep., AIDS, mental health diagnosis, sleep apnea, morbid obesity)? @ -none Was patient admitted / discharged? Hospital course, mention meds given and route, prescriptions, significant lab abnormalities, going to OR and other pertinent info. @ -73 female to ER for evaluation of possible seizure activity and weakness. Patient has no acute findings here in the ER imaging lab test are negative patient can be discharged home Undiagnosed new problem with uncertain prognosis? @ -no Drug Therapy requiring intensive monitoring for toxicity (Heparin, Nitro, Insuli n, Cardizem)? @ -no Were any procedures done? @ -no Diagnosis/symptom? @ -Weakness concerns seizure Acute, or Chronic, or Acute on Chronic? @ -Acute Uncomplicated (without systemic symptoms) or Complicated (systemic symptoms)? @ -Complicated Side effects of treatment? @ -no Exacerbation, Progression, or Severe Exacerbation? @ -exacerbation Poses a threat to life or bodily function? How? (Chest pain, [place], [place], pneumonia, PE, COPD, DKA, ARF, appy, cholecystitis, CVA, Diverticulitis, Homicidal, Suicidal, threat to staff... and all critical care pts) @ -yes with extremes of age Reevaluation #5: Differential Seizure: Recurrent seizure disorder, febrile seizure, alcohol withdrawal, stimulants, meningitis, encephalitis, intercranial hemorrhage, intracranial tumor, stroke, eclampsia, thyrotoxicosis, hypocalcemia, hyponatremia, hypernatremia, hypomagnesemia, psychogenic, this is not meant to be an all-inclusive list. Medical Decision Making - Medical Decision Making 73 female to the ER for evaluation of possible seizure with weakness. Patient has no significant findings here in the ER and will be discharged home - Lab Data Result diagrams: 08/21/23 13:42 08/21/23 13:42 Lab Results 08/21/23 08/21/23 08/21/23 Range/Units 13:42 13:42 13:42 WBC 4.6 (3.8-10.6) k/uL RBC 4.82 (3.80-5.40) m/uL Hgb 10.7 L (11.4-16.0) gm/dL Hct 35.4 (34.0-46.0) % MCV 73.4 L (80.0-100.0) fL MCH 22.2 L (25.0-35.0) pg MCHC 30.3 L (31.0-37.0) g/dL RDW 16.8 H (11.5-15.5) % Plt Count 287 (150-450) k/uL MPV 7.0 Neutrophils % 41 % Lymphocytes % 40 % Monocytes % 8 % Eosinophils % 7 % Basophils % 1 % Neutrophils # 1.9 (1.3-7.7) k/uL Lymphocytes # 1.9 (1.0-4.8) k/uL Monocytes # 0.3 (0-1.0) k/uL Eosinophils # 0.3 (0-0.7) k/uL Basophils # 0.1 (0-0.2) k/uL Hypochromasia Moderate Poikilocytosis Slight Anisocytosis Slight Microcytosis Moderate PT 10.1 (10.0-12.5) sec INR 0.9 (<1.2) APTT 23.8 (22.0-30.0) sec Sodium 139 (137-145) mmol/L Potassium 5.2 H (3.5-5.1) mmol/L Chloride 111 H (98-107) mmol/L Carbon Dioxide 24 (22-30) mmol/L Anion Gap 4 mmol/L BUN 9 (7-17) mg/dL Creatinine 0.82 (0.52-1.04) mg/dL Est GFR (CKD-EPI)AfAm 82 (>60 ml/min/1.73 sqM) Est GFR (CKD-EPI)NonAf 71 (>60 ml/min/1.73 sqM) Glucose 86 (74-99) mg/dL Plasma Lactic Acid Jamil (0.7-2.0) mmol/L Calcium 9.0 (8.4-10.2) mg/dL Phosphorus 4.0 (2.5-4.5) mg/dL Magnesium 2.3 (1.6-2.3) mg/dL Total Bilirubin 0.7 (0.2-1.3) mg/dL AST 21 (14-36) U/L ALT 10 (4-34) U/L Alkaline Phosphatase 113 (38-126) U/L Troponin I (0.000-0.034) ng/mL NT-Pro-B Natriuret Pep 63 pg/mL Total Protein 6.6 (6.3-8.2) g/dL Albumin 3.7 (3.5-5.0) g/dL Urine Color Urine Appearance (Clear) Urine pH (5.0-8.0) Ur Specific [place] (1.001-1.035) Urine Protein (Negative) Urine Glucose (UA) (Negative) Urine Ketones (Negative) Urine Blood (Negative) Urine Nitrite (Negative) Urine Bilirubin (Negative) Urine Urobilinogen (<2.0) mg/dL Ur Leukocyte Esterase (Negative) Serum Alcohol <10 mg/dL 08/21/23 08/21/23 08/21/23 Range/Units 13:42 13:42 16:10 WBC (3.8-10.6) k/uL RBC (3.80-5.40) m/uL Hgb (11.4-16.0) gm/dL Hct (34.0-46.0) % MCV (80.0-100.0) fL MCH (25.0-35.0) pg MCHC (31.0-37.0) g/dL RDW (11.5-15.5) % Plt Count (150-450) k/uL MPV Neutrophils % % Lymphocytes % % Monocytes % % Eosinophils % % Basophils % % Neutrophils # (1.3-7.7) k/uL Lymphocytes # (1.0-4.8) k/uL Monocytes # (0-1.0) k/uL Eosinophils # (0-0.7) k/uL Basophils # (0-0.2) k/uL Hypochromasia Poikilocytosis Anisocytosis Microcytosis PT (10.0-12.5) sec INR (<1.2) APTT (22.0-30.0) sec Sodium (137-145) mmol/L Potassium (3.5-5.1) mmol/L Chloride (98-107) mmol/L Carbon Dioxide (22-30) mmol/L Anion Gap mmol/L BUN (7-17) mg/dL Creatinine (0.52-1.04) mg/dL Est GFR (CKD-EPI)AfAm (>60 ml/min/1.73 sqM) Est GFR (CKD-EPI)NonAf (>60 ml/min/1.73 sqM) Glucose (74-99) mg/dL Plasma Lactic Acid Jamil 1.2 (0.7-2.0) mmol/L Calcium (8.4-10.2) mg/dL Phosphorus (2.5-4.5) mg/dL Magnesium (1.6-2.3) mg/dL Total Bilirubin (0.2-1.3) mg/dL AST (14-36) U/L ALT (4-34) U/L Alkaline Phosphatase (38-126) U/L Troponin I <0.012 (0.000-0.034) ng/mL NT-Pro-B Natriuret Pep pg/mL Total Protein (6.3-8.2) g/dL Albumin (3.5-5.0) g/dL Urine Color Colorless Urine Appearance Clear (Clear) Urine pH 6.0 (5.0-8.0) Ur Specific [place] 1.013 (1.001-1.035) Urine Protein Negative (Negative) Urine Glucose (UA) Negative (Negative) Urine Ketones Negative (Negative) Urine Blood Negative (Negative) Urine Nitrite Negative (Negative) Urine Bilirubin Negative (Negative) Urine Urobilinogen <2.0 (<2.0) mg/dL Ur Leukocyte Esterase Negative (Negative) Serum Alcohol mg/dL - Radiology Data Radiology results: report reviewed (CT brain negative for acute disease), image reviewed Disposition Clinical Impression: Weakness Disposition: HOME SELF-CARE Condition: Fair Instructions (If sedation given, give patient instructions): Weakness (ED) Is patient prescribed a controlled substance at d/c from ED?: No Referrals: Cade Menendez DO [Primary Care Provider] - 1-2 days
[2023-08-21] MEDS: SODIUM CHLORIDE 0.9% 1,000 ML IV STA (13:40)
[2023-08-21] MEDS: HYDROmorphone 0.5 MG/0.5 ML SYRINGE IVP STA (13:48)
[2023-08-21 14:04] LABS: Anisocytosis Slight; Basophils # (A) 0.1 k/uL (0-0.2); Basophils % (A) 1 %; Eosinophils # (A) 0.3 k/uL (0-0.7); Eosinophils % (A) 7 %; HCT 35.4 % (34.0-46.0); HGB 10.7 gm/dL (11.4-16.0); Hypochromasia Moderate; Lymphocytes # (A) 1.9 k/uL (1.0-4.8); Lymphocytes % (A) 40 %; MCH 22.2 pg (25.0-35.0); MCHC 30.3 g/dL (31.0-37.0); MCV 73.4 fL (80.0-100.0); Microcytosis Moderate; Monocytes # (A) 0.3 k/uL (0-1.0); Monocytes % (A) 8 %; Neutrophils # (A) 1.9 k/uL (1.3-7.7); Neutrophils % (A) 41 %; Platelet Count 287 k/uL (150-450); Poikilocytosis Slight; RBC 4.82 m/uL (3.80-5.40); RDW 16.8 % (11.5-15.5); WBC 4.6 k/uL (3.8-10.6)
[2023-08-21 14:11] LABS: INR 0.9 (<1.2); Partial Thromboplastin Time 23.8 sec (22.0-30.0); Prothrombin Time 10.1 sec (10.0-12.5)
[2023-08-21 14:14] LABS: ALT 10 U/L (4-34); AST 21 U/L (14-36); African American GFR (CKD) 82 (>60 ml/min/1.73 sqM); Albumin 3.7 g/dL (3.5-5.0); Alcohol <10 mg/dL; Alkaline Phosphatase 113 U/L (38-126); Anion Gap 4 mmol/L; Blood Urea Nitrogen 9 mg/dL (7-17); Carbon Dioxide 24 mmol/L (22-30); Chloride 111 mmol/L (98-107); Glucose 86 mg/dL (74-99); Magnesium 2.3 mg/dL (1.6-2.3); Non-African American GFR(CKD) 71 (>60 ml/min/1.73 sqM); Potassium 5.2 mmol/L (3.5-5.1); Sodium 139 mmol/L (137-145); Total Bilirubin 0.7 mg/dL (0.2-1.3); Total Protein 6.6 g/dL (6.3-8.2)
[2023-08-21 14:19] LABS: NT-Pro-B-Type Natriuretic Pept 63 pg/mL
--- NOTE | 2023-08-21 15:05 | CT ---
EXAMINATION TYPE: CT brain wo con CT DLP: 1152.4 mGycm, Automated exposure control for dose reduction was used. DATE OF EXAM: 08/21/2023 2:54 PM COMPARISON: 05/09/2023. CLINICAL INDICATION:Female, 73 years old with history of weakness, Multiple recent falls, pain RT pos terior, weakness. TECHNIQUE: Brain: Axial CT images of the brain were obtained with coronal and sagittal reformats created and rev iewed. Contrast used: None. Oral contrast used: None. FINDINGS: Brain: Extra-axial spaces: No abnormal extra-axial fluid collections. Ventricular system: Within normal limits Cerebral parenchyma: No acute intraparenchymal hemorrhage or mass effect. The richter-white junction is well differentiated. Cerebellum: Unremarkable. Mass effect: No evidence of midline shift. Intracranial vasculature: Atherosclerotic calcifications of the intracranial vessels. Soft tissues: Normal. Calvarium/osseous structures: No depressed skull fracture. Paranasal sinuses and mastoid air cells: Complete opacification of the right sphenoid sinus with scat tered mild mucosal thickening throughout the paranasal sinuses. Visualized orbits: Orbital contents are intact. IMPRESSION: 1. No acute intracranial process. 2. Complete opacification of the right sphenoid sinus.
[2023-08-21] MEDS ORDERED: SODIUM CHLORIDE 0.9% 1,000 ML IV STA (15:48)
[2023-08-21] MEDS: ONDANSETRON 4 MG/2 ML VIAL IVP STA (16:13)
[2023-08-21] MEDS: KETOROLAC 15 MG/ML 1 ML VIAL IVP STA (16:17)
[2023-08-21 16:37] LABS: Appearance,Urine Clear (Clear); Bilirubin,Urine Negative (Negative); Blood,Urine Negative (Negative); Color,Urine Colorless; Glucose,Urine (UA) Negative (Negative); Ketones,Urine Negative (Negative); Leukocyte Esterase,Urine Negative (Negative); Nitrite,Urine Negative (Negative); Protein,Urine Negative (Negative); Specific Gravity,Urine 1.013 (1.001-1.035); Urobilinogen,Urine <2.0 mg/dL (<2.0)
[2023-08-21 17:18] VITALS: BP 133/56; PULSE 76
== END 2023-08-21 17:18 | disposition home or self-care (01) ==
LOC: EC 12:42
DX: R53.1 Weakness (principal); Z88.1 Allergy status to other antibiotic agents; Z88.5 Allergy status to narcotic agent; Z91.018 Allergy to other foods; Z88.2 Allergy status to sulfonamides; Z88.8 Allergy status to other drugs, medicaments and biological substances
CPT/HCPCS: 36415; 83880; 80053; 83605; 83735; 84100; 84484; 85025; 85610; 85730; 81003; 80320; 70450; 99284; 96374; 96361 ×4; J1885

== ENCOUNTER 2024-04-26 14:20 | Emergency (ER) | payer MEDICARE ==
[2024-04-26 14:43] VITALS: RESP 20
--- NOTE | 2024-04-26 17:11 | ED ---
Fall HPI - General Chief Complaint: Fall Stated Complaint: Fall/Back Pain Time Seen by Provider: 04/26/24 17:08 Source: patient, RN notes reviewed Mode of arrival: ambulatory - History of Present Illness Initial Comments: 74-year-old female presenting to the ER for chief complaint of fall earlier this morning. States she was at home when she felt like her legs gave out beneath her. States she fell directly onto her lower back. Endorses pain in her lower back and right knee. Denies hitting her head or losing consciousness. She has been able to ambulate since the fall. Also has a history of seizures and feels in the fall she may have had a brief seizure. Does not currently have any symptoms. She takes Keppra 3 times daily and has not had a seizure in many years. Denies loss of bowel or bladder control, numbness, tingling, weakness in bilateral lower extremities, or saddle anesthesia. - Related Data Home Medications Medication Instructions Recorded Confirmed Levothyroxine Sodium [Synthroid] 50 mcg PO DAILY 11/11/17 08/21/23 Meclizine [Antivert] 25 mg PO TID 11/11/17 08/21/23 Omeprazole 20 mg PO BID 11/11/17 08/21/23 Potassium Chloride ER [K-Dur 20] 20 meq PO BID 11/11/17 08/21/23 buPROPion XL [Wellbutrin XL] 150 mg PO HS 11/11/17 08/21/23 carvediloL [Coreg] 3.125 mg PO BID 11/11/17 08/21/23 Citalopram Hydrobromide [CeleXA] 40 mg PO DAILY 06/23/18 08/21/23 Atorvastatin Calcium [Lipitor] 10 mg PO HS 11/24/20 08/21/23 Ibuprofen [Motrin] 800 mg PO TID 11/24/20 08/21/23 Zolpidem Tartrate [Ambien] 10 mg PO HS 11/24/20 08/21/23 Baclofen [Lioresal] 10 mg PO BID 08/14/21 08/21/23 LORazepam [Ativan] 1 mg PO HS 08/21/23 08/21/23 levETIRAcetam [Keppra] 500 mg PO TID 08/21/23 08/21/23 Allergies Allergy/AdvReac Type Severity Reaction Status Date / Time ciprofloxacin [From Cipro] Allergy Unknown Verified 04/26/24 14:43 ciprofloxacin HCl Allergy Unknown Verified 04/26/24 14:43 [From Cipro] codeine Allergy Rash/Hives Verified 04/26/24 14:43 hydrocodone bitartrate Allergy Rash/Hives Verified 04/26/24 14:43 [From Lortab] hydromorphone [From Dilaudid] Allergy Rash/Hives Verified 04/26/24 14:43 meperidine HCl [From Demerol] Allergy Rash/Hives Verified 04/26/24 14:43 morphine Allergy Rash/Hives Verified 04/26/24 14:43 propoxyphene napsylate Allergy Rash/Hives Verified 04/26/24 14:43 [From Darvocet-N 100] soy Allergy Anaphylaxis Verified 04/26/24 14:43 Sulfa (Sulfonamide Allergy Rash/Hives Verified 04/26/24 14:43 Antibiotics) tetracycline [Tetracycline] Allergy Rash/Hives Verified 04/26/24 14:43 tioconazole [From Monistat 1] Allergy Rash/Hives Verified 04/26/24 14:43 tramadol Allergy Rash/Hives. Verified 04/26/24 14:43 "THROAT CLOSING UP" hemp Allergy Rash/Hives Uncoded 04/26/24 14:43 Review of Systems ROS Statement: Those systems with pertinent positive or pertinent negative responses have been documented in the HPI. ROS Other: All systems not noted in ROS Statement are negative. Past Medical History Past Medical History: Asthma, Cancer, GERD/Reflux, GI Bleed, Hearing Disorder / Deafness, Hyperlipidemia, Hypertension, Osteoarthritis (OA), Seizure Disorder, Thyroid Disorder Additional Past Medical History / Comment(s): Last seizure over 6 MONTHS AGO. Hard of hearing. MENIERES. Hx bilateral breast cancer 20 yrs ago. Hx bowel obstruction FROM DIVERTICULTIS. colitis. Exercise Induced Asthma. History of Any Multi-Drug Resistant Organisms: ESBL Date of last positivie culture/infection: 01/08/18 MDRO Source:: ESBL URINE Past Surgical History: Appendectomy, Back Surgery, Bariatric Surgery, Bowel Resection, Breast Surgery, Cholecystectomy, Heart Catheterization, Hernia Repair, Joint Replacement, Pacemaker, Tonsillectomy Additional Past Surgical History / Comment(s): LOWER BACK SURGERY. PACEMAKER. LAP BAND INSERTED & REMOVED. GASTRIC SLEEVE (2016). BILATERAL TOTAL KNEE REPLACEMENTS, CERVICAL FUSION (2-7). BOWEL RESECTION (DIVERTICULITIS). INCISIONAL HERNIA REPAIR SEVERAL HEART CATHS-NO STENTS. BILATERAL BREAST LUMPECTOMIES (CANCER). Past Anesthesia/Blood Transfusion Reactions: Previous Problems w/ Anesthesia Additional Past Anesthesia/Blood Transfusion Reaction / Comment(s): Blood transfusion X3 -no reaction. "Low BP with anesthesia if takes BP med AM of surgery." MENIERES DISEASE. Type of Cardiac Device: Permanent Pacemaker Device Placement Date:: 10/12/17 Past Psychological History: Anxiety, Depression Smoking Status: Never smoker Past Alcohol Use History: None Reported Past Drug Use History: None Reported - Past Family History Mother Family Medical History: Pulmonary Embolus Additional Family Medical History / Comment(s): Multiple TIA's. Father Family Medical History: Cancer Additional Family Medical History / Comment(s): Lung Cancer. Sister(s) Family Medical History: Cancer, Deep Vein Thrombosis (DVT), Pulmonary Embolus Additional Family Medical History / Comment(s): OVARIAN CANCER. General Exam Limitations: no limitations General appearance: alert, in no apparent distress Head exam: Present: atraumatic, normocephalic, normal inspection Eye exam: Present: normal appearance, PERRL, EOMI. Absent: scleral icterus, conjunctival injection, periorbital swelling ENT exam: Present: normal exam, mucous membranes moist Neck exam: Present: normal inspection. Absent: tenderness, meningismus, lymphadenopathy Respiratory exam: Present: normal lung sounds bilaterally. Absent: respiratory distress, wheezes, rales, rhonchi, stridor Cardiovascular Exam: Present: regular rate, normal rhythm, normal heart sounds. Absent: systolic murmur, diastolic murmur, rubs, gallop, clicks GI/Abdominal exam: Present: soft, normal bowel sounds. Absent: distended, tenderness, guarding, rebound, rigid Right Upper Leg exam: Present: normal inspection, full ROM. Absent: tenderness, swelling Knee exam: Present: normal inspection, full ROM, tenderness (Diffuse anterior tenderness right knee) Lower Leg exam: Present: normal inspection, full ROM. Absent: tenderness, swelling Foot/Toe exam: Present: normal inspection, full ROM. Absent: tenderness, s welling Neurovascular tendon exam: Present: no vascular compromise. Absent: pulse deficit, abnormal cap refill, sensory deficit Back exam: Present: normal inspection, full ROM, tenderness (Diffuse lumbar spine tenderness to palpation, no point tenderness), paraspinal tenderness, other (Full strength and range of motion of bilateral hips. No saddle anesthesia. Full sensation and DP pulses bilaterally). Absent: CVA tenderness (L) Neurological exam: Present: alert, oriented X3 Psychiatric exam: Present: normal affect, normal mood Skin exam: Present: warm, dry, intact, normal color. Absent: rash Course Vital Signs 04/26/24 14:41 Temperature 98.5 F Pulse Rate 63 Respiratory 20 Rate Blood Pressure 160/79 O2 Sat by Pulse 94 L Oximetry Medical Decision Making - Medical Decision Making Was pt. sent in by a medical professional or institution (, PA, HOUSECLEANER, urgent care, hospital, or fpc...) When possible be specific @ -No Did you speak to anyone other than the patient for history (EMS, parent, family, police, friend...)? What history was obtained from this source @ -No Did you review nursing and triage notes (agree or disagree)? Why? @ -I reviewed and agree with nursing and triage notes Were old charts reviewed (outside hosp., previous admission, EMS record, old EKG, old radiological studies, urgent care reports/EKG's, fpc records)? Report findings @ -No old charts were reviewed Differential Diagnosis (chest pain, altered mental status, abdominal pain women, abdominal pain men, vaginal bleeding, weakness, fever, dyspnea, syncope, headache, dizziness, GI bleed, back pain, seizure, CVA, palpatations, mental health, musculoskeletal)? @ -Differential Musculoskeletal Muscular strain, contusion, ligament sprain, fracture, arthritis, septic arthritis, bursitis, cellulitis, muscle spasm, nerve compression, DVT, arterial occlusion, herpes zoster, electrolyte abnormality, tumor.... This is not meant to be in all inclusive list EKG interpreted by me (3pts min.). @ -None X-rays interpreted by me (1pt min.). @ -X-ray lumbar spine and right knee reveals no acute process CT interpreted by me (1pt min.). @ -None done U/S interpreted by me (1pt. min.). @ -None done What testing was considered but not performed or refused? (CT, X-rays, U/S, labs)? Why? @ -None What meds were considered but not given or refused? Why? @ -None Did you discuss the management of the patient with other professionals (professionals i.e. , PA, HOUSECLEANER, lab, RT, psych nurse, licensed clinical social worker, die developer, teacher, landing signal officer, pillowcase turner)? Give summary @ -No Was smoking cessation discussed for >3mins.? @ -No Was critical care preformed (if so, how long)? @ -No Were there social determinants of health that impacted care today? How? (Homele ssness, low income, unemployed, alcoholism, drug addiction, transportation, low edu. Level, literacy, decrease access to med. care, assisted, rehab)? @ -No Was there de-escalation of care discussed even if they declined (Discuss DNR or withdrawal of care, Hospice)? DNR status @ -No What co-morbidities impacted this encounter? (DM, HTN, Smoking, COPD, CAD, Cancer, CVA, ARF, Chemo, Hep., AIDS, mental health diagnosis, sleep apnea, morbid obesity)? @ -None Was patient admitted / discharged? Hospital course, mention meds given and route, prescriptions, significant lab abnormalities, going to OR and other pertinent info. @ -Discharge. History and physical examination completed. Lab work was remarka ble for mildly elevated magnesium at 2.5, hemoglobin 10.6 comparable to baseline. X-ray right knee and lumbar spine reveals no acute process. Discussed results with patient. Appropriate return precautions and follow-up care discussed. Case was discussed with my ED attending Dr. Robertson Undiagnosed new problem with uncertain prognosis? @ -No Drug Therapy requiring intensive monitoring for toxicity (Heparin, Nitro, Insulin, Cardizem)? @ -No Were any procedures done? @ -No Diagnosis/symptom? @ -Low back strain Acute, or Chronic, or Acute on Chronic? @ -Acute Uncomplicated (without systemic symptoms) or Complicated (systemic symptoms)? @ -Uncomplicated Side effects of treatment? @ -No Exacerbation, Progression, or Severe Exacerbation? @ -No Poses a threat to life or bodily function? How? (Chest pain, USA, NC, pneumonia, PE, COPD, DKA, ARF, appy, cholecystitis, CVA, Diverticulitis, Homicidal, Suicidal, threat to staff... and all critical care pts) @ -No - Lab Data Result diagrams: 04/26/24 17:18 04/26/24 17:18 Lab Results 04/26/24 04/26/24 04/26/24 Range/Units 17:18 17:18 17:18 WBC 5.4 (3.8-10.6) k/uL RBC 5.10 (3.80-5.40) m/uL Hgb 10.6 L (11.4-16.0) gm/dL Hct 35.4 (34.0-46.0) % MCV 69.4 L (80.0-100.0) fL MCH 20.8 L (25.0-35.0) pg MCHC 30.0 L (31.0-37.0) g/dL RDW 17.5 H (11.5-15.5) % Plt Count 351 (150-450) k/uL MPV 7.3 Neutrophils % 46 % Lymphocytes % 40 % Monocytes % 7 % Eosinophils % 5 % Basophils % 1 % Neutrophils # 2.5 (1.3-7.7) k/uL Lymphocytes # 2.1 (1.0-4.8) k/uL Monocytes # 0.4 (0-1.0) k/uL Eosinophils # 0.3 (0-0.7) k/uL Basophils # 0.0 (0-0.2) k/uL Hypochromasia Marked Poikilocytosis Slight Anisocytosis Slight Microcytosis Marked Sodium 138 (137-145) mmol/L Potassium 4.9 (3.5-5.1) mmol/L Chloride 106 (98-107) mmol/L Carbon Dioxide 22 (22-30) mmol/L Anion Gap 10 mmol/L BUN 7 (7-17) mg/dL Creatinine 0.90 (0.52-1.04) mg/dL Est GFR (CKD-EPI)AfAm 73 (>60 ml/min/1.73 sqM) Est GFR (CKD-EPI)NonAf 63 (>60 ml/min/1.73 sqM) Glucose 87 (74-99) mg/dL Plasma Lactic Acid Jamil 0.9 (0.7-2.0) mmol/L Calcium 9.4 (8.4-10.2) mg/dL Magnesium 2.5 H (1.6-2.3) mg/dL Total Bilirubin 0.6 (0.2-1.3) mg/dL AST 22 (14-36) U/L ALT 8 (4-34) U/L Alkaline Phosphatase 123 (38-126) U/L Total Protein 7.4 (6.3-8.2) g/dL Albumin 4.3 (3.5-5.0) g/dL Disposition Clinical Impression: Low back strain Disposition: HOME SELF-CARE Condition: Stable Instructions (If sedation given, give patient instructions): Muscle Strain (ED) Additional Instructions: Please return to the Emergency Department if symptoms worsen or any other concerns. Is patient prescribed a controlled substance at d/c from ED?: No Referrals: Cade Menendez DO [Primary Care Provider] - 1-2 days Time of Disposition: 18:34
--- NOTE | 2024-04-26 17:34 | XR ---
EXAMINATION TYPE: XR knee complete RT DATE OF EXAM: 04/26/2024 CLINICAL HISTORY: Injury with pain TECHNIQUE: Three views of the right knee are obtained. COMPARISON: None. FINDINGS: There is no acute fracture/dislocation evident in right knee. 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 Overlying soft tissue is unremarkable. IMPRESSION: There is no acute fracture or dislocation in the right knee prosthesis. [facility], , 04/26/2024 5:31 PM
--- NOTE | 2024-04-26 17:35 | XR ---
EXAMINATION TYPE: XR lumbar spine 2 or 3V DATE OF EXAM: 04/26/2024 CLINICAL HISTORY: Injury with pain TECHNIQUE: Frontal and lateral images of the lumbar spine are obtained. COMPARISON: Prior lumbar spine x-ray October 20, 2020 FINDINGS: There are 5 lumbar type vertebral bodies redemonstrated. The lumbar spine shows new poste rior interpedicular rods and screws along with metallic disc material at L3-L5 levels. Vertebral body heights and disc space heights in the lumbar spine are satisfactory above the surgical levels. Surgi armaan clips in the epigastric region are redemonstrated. IMPRESSION: As above. [facility], , 04/26/2024 5:33 PM
[2024-04-26 18:00] LABS: ALT 8 U/L (4-34); AST 22 U/L (14-36); African American GFR (CKD) 73 (>60 ml/min/1.73 sqM); Albumin 4.3 g/dL (3.5-5.0); Alkaline Phosphatase 123 U/L (38-126); Anion Gap 10 mmol/L; Blood Urea Nitrogen 7 mg/dL (7-17); Calcium 9.4 mg/dL (8.4-10.2); Carbon Dioxide 22 mmol/L (22-30); Chloride 106 mmol/L (98-107); Glucose 87 mg/dL (74-99); Magnesium 2.5 mg/dL (1.6-2.3); Non-African American GFR(CKD) 63 (>60 ml/min/1.73 sqM); Potassium 4.9 mmol/L (3.5-5.1); Sodium 138 mmol/L (137-145); Total Bilirubin 0.6 mg/dL (0.2-1.3); Total Protein 7.4 g/dL (6.3-8.2)
[2024-04-26 18:04] LABS: Anisocytosis Slight; Basophils % (A) 1 %; Eosinophils # (A) 0.3 k/uL (0-0.7); Eosinophils % (A) 5 %; HCT 35.4 % (34.0-46.0); HGB 10.6 gm/dL (11.4-16.0); Hypochromasia Marked; Lymphocytes # (A) 2.1 k/uL (1.0-4.8); Lymphocytes % (A) 40 %; MCH 20.8 pg (25.0-35.0); MCV 69.4 fL (80.0-100.0); Mean Platelet Volume 7.3; Microcytosis Marked; Monocytes # (A) 0.4 k/uL (0-1.0); Monocytes % (A) 7 %; Neutrophils # (A) 2.5 k/uL (1.3-7.7); Neutrophils % (A) 46 %; Platelet Count 351 k/uL (150-450); Poikilocytosis Slight; RDW 17.5 % (11.5-15.5); WBC 5.4 k/uL (3.8-10.6)
[2024-04-26 18:59] VITALS: BP 164/94; PULSE 65; TEMP 98.1
== END 2024-04-26 18:59 | disposition home or self-care (01) ==
LOC: EC 14:20
DX: S39.012A Strain of muscle, fascia and tendon of lower back, initial encounter (principal); Z88.1 Allergy status to other antibiotic agents; Z88.2 Allergy status to sulfonamides; Z88.5 Allergy status to narcotic agent; Z88.8 Allergy status to other drugs, medicaments and biological substances; Z95.0 Presence of cardiac pacemaker; W01.10XA Fall on same level from slipping, tripping and stumbling with subsequent striking against unspecified object, initial encounter
CPT/HCPCS: 36415; 72100; 80053; 83605; 83735; 85025; 99283

== ENCOUNTER → 2024-04-29 | Outpatient (CLI) | payer MEDICARE ==
--- NOTE | 2024-04-29 15:06 | MM ---
Reason for Exam: Clinical finding. Last mammogram was performed 1 year(s) and 9 month(s) ago. Patient History: Menarche at age 16. Patient has no children. Postmenopausal. Breast cancer, left, age 39. Breast cancer, right, age 45. 1992, Benign Excisional Biopsy on the right side. 1992, Benign Excisional Biopsy on the right side. 1992, Benign Excisional Biopsy on the right side. 1992, Benign Excisional Biopsy on the right side. 1992, Benign Excisional Biopsy on the right side. 1992, Benign Excisional Biopsy on the right side. 1992, Benign Excisional Biopsy on the right side. 1992, Benign Excisional Biopsy on the right side. 1978, Lumpectomy on the Left side. 1992, Benign Excisional Biopsy on the right side. 09/02/2022, MG discontinued stereo core RT on the right side. Prior Study Comparison: 03/21/2006 Bilateral Screening Mammogram, [facility]. 04/03/2007 Bilateral Screening Mammogram, [facility]. 06/27/2010 Bilateral Screening Mammogram, [facility]. 03/28/2021 Bilateral Diagnostic Mammogram, [facility]. 08/05/2022 Right US breast limited RT, [facility]. 08/05/2022 Bilateral MG 3D diag mammo w/cad GINI, [facility]. Tissue Density: The breasts are heterogeneously dense, which may obscure small masses. Findings: Analyzed By CAD. No new suspicious masses, calcifications or distortions. No definitive finding to correlate focal abnormalities bilaterally. Scattered benign-appearing calcifications. Right breast biopsy clips in the right upper outer quadrant may correlate with the 2 palpable areas on the right. Overall Assessment: Incomplete: need additional imaging evaluation, BI-RAD 0 Management: Diagnostic Breast Ultrasound of both breasts. Results were given to the patient verbally at the time of exam. Patient should continue monthly self-breast exams. A clinical breast exam by your physician is recommended on an annual basis. This exam should not preclude additional follow-up of suspicious palpable abnormalities. Note on Hui scores and lifetime risk: 1. A Hui score greater than 3% is considered moderate risk. If this is the case, consider specialist referral to assess eligibility for a risk reducing agent. 2. If overall lifetime risk for the development of breast cancer is 20% or higher, the patient may qualify for future screening with alternating mammogram and breast MRI. [facility], , 04/29/2024 3:00 PM. Electronically signed and approved by: Juan Alberto Boland DO
== END | disposition home or self-care (01) ==
LOC: RADMAMWWP 14:26
PROVIDERS: ATTEND Family Medicine
DX: R92.8 Other abnormal and inconclusive findings on diagnostic imaging of breast (principal); R92.333 Mammographic heterogeneous density, bilateral breasts; Z85.3 Personal history of malignant neoplasm of breast; Z78.0 Asymptomatic menopausal state
CPT/HCPCS: 77062; 77066

== ENCOUNTER → 2024-05-11 | Day surgery (SDC) | payer MEDICARE ==
--- NOTE | 2024-05-19 14:16 | MM ---
Reason for Exam: Post Procedure Mammogram. Last screening mammogram was performed less than 1 month ago. Patient History: Menarche at age 16. Patient has no children. Postmenopausal. Breast cancer, left, age 39. Breast cancer, right, age 45. 1992, Benign Excisional Biopsy on the right side. 1992, Benign Excisional Biopsy on the right side. 1992, Benign Excisional Biopsy on the right side. 1992, Benign Excisional Biopsy on the right side. 1992, Benign Excisional Biopsy on the right side. 1992, Benign Excisional Biopsy on the right side. 1992, Benign Excisional Biopsy on the right side. 1992, Benign Excisional Biopsy on the right side. 1978, Lumpectomy on the Left side. 1992, Benign Excisional Biopsy on the right side. 09/02/2022, MG discontinued stereo core RT on the right side. Prior Study Comparison: 03/28/2021 Bilateral Diagnostic Mammogram, [facility]. 08/05/2022 Bilateral MG 3D diag mammo w/cad GINI, [facility]. 04/29/2024 Bilateral MG 3D diag mammo w/cad GINI, [facility]. Tissue Density: Right: The breasts are heterogeneously dense, which may obscure small masses. Pathology Description: Location: 9 o'clock. Marker Left Behind. Needle Type: Mammotome Cores: 4 Gauge: 13 Initial targeted scanning redemonstrates the hypoechoic lesion measuring 8 x 7 x 5 mm. However, we note more accurate positioning at 9:00, 8 cm from the nipple rather than 11:00. This is targeted for biopsy. The procedure of ultrasound guided core biopsy was explained to the patient. Benefits, alternatives, and risks were discussed. An informed consent was then obtained. The patient was placed in supine positioning for imaging and for the procedure. The overlying skin was prepped and draped in usual sterile fashion. Lidocaine buffered with bicarbonate was used as anesthetic into the skin followed by lidocaine/epinephrine into the subcutaneous tissue up to area of concern in the 9:00 right breast. Under ultrasound guidance, a 13-gauge vacuum-assisted mammotome Elite biopsy gun device was used to obtain 4 core samples. Following this, a wing clip was left at the site of biopsy. The patient tolerated the procedure well without any immediate complication. The patient was kept in the radiology department for short stay after the procedure and then discharged home in stable condition. Postprocedure mammogram: The patient was transferred to mammography for physician ordered post procedure mammogram for clip placement verification. Post procedure mammogram demonstrates appropriate placement of clip, at a mammographic area of focal asymmetry. IMPRESSION: Successful, uncomplicated ultrasound guided core biopsy of palpable area of concern in the right breast. Mammographic correlate. Full pathology results to follow. [facility], Workstation: [id number], 05/11/2024 3:05 PMInitial targeted scanning redemonstrates the hypoechoic lesion measuring 8 x 7 x 5 mm. However, we note more accurate positioning at 9:00, 8 cm from the nipple rather than 11:00. This is targeted for biopsy. The procedure of ultrasound guided core biopsy was explained to the patient. Benefits, alternatives, and risks were discussed. An informed consent was then obtained. The patient was placed in supine positioning for imaging and for the procedure. The overlying skin was prepped and draped in usual sterile fashion. Lidocaine buffered with bicarbonate was used as anesthetic into the skin followed by lidocaine/epinephrine into the subcutaneous tissue up to area of concern in the 9:00 right breast. Under ultrasound guidance, a 13-gauge vacuum-assisted mammotome Elite biopsy gun device was used to obtain 4 core samples. Following this, a wing clip was left at the site of biopsy. The patient tolerated the procedure well without any immediate complication. The patient was kept in the radiology department for short stay after the procedure and then discharged home in stable condition. Postprocedure mammogram: The patient was transferred to mammography for physician ordered post procedure mammogram for clip placement verification. Post procedure mammogram demonstrates appropriate placement of clip, at a mammographic area of focal asymmetry. IMPRESSION: Successful, uncomplicated ultrasound guided core biopsy of palpable area of concern in the right breast. Mammographic correlate. Full pathology results to follow. [facility], , 05/11/2024 3:06 PM. Pathology Results: Result: Benign, Fibrocystic change. Pathology and radiology were reviewed. Findings are concordant. RIGHT BREAST, 9:00, NEEDLE CORE BIOPSY: Benign breast tissue with fibrocystic changes. Overall Assessment: Benign Assessment: MG diagnostic mammo RT wo CAD - Right: Benign, BI-RAD 2. Management: Diagnostic Mammogram of the right breast in 6 months. Electronically signed and approved by: Lucy Ortiz M.D. Radiologist
== END ==
LOC: RADUSWWP 12:00
PROVIDERS: ATTEND Surgery
DX: N60.11 Diffuse cystic mastopathy of right breast (principal); Z85.3 Personal history of malignant neoplasm of breast
CPT/HCPCS: 88305; 77065; 19083; A4648

== ENCOUNTER 2024-07-11 12:34 | Emergency (ER) | payer MEDICARE ==
--- NOTE | 2024-07-11 12:56 | ED ---
Skin/Abscess/FB HPI - General Chief complaint: Skin/Abscess/Foreign Body Stated complaint: Rash Time Seen by Provider: 07/11/24 12:55 Source: patient, RN notes reviewed Mode of arrival: ambulatory Limitations: no limitations - History of Present Illness Initial comments: 74-year-old female presented the ER for evaluation of a rash. Patient states she recently returned from vacationing in [facility]. Patient reports she was scraped by a branch while they are across her chest. She states she first noticed rash to this area about 2.5 weeks ago. Rash is currently involving bilateral upper extremities, chest and back. She states the rash is pruritic in nature and has a burning quality to it. She denies any fevers, chills, nausea, vomiting or other complaints at this time. - Related Data Home Medications Medication Instructions Recorded Confirmed Levothyroxine Sodium [Synthroid] 50 mcg PO DAILY 11/11/17 04/30/24 Meclizine [Antivert] 25 mg PO TID 11/11/17 04/30/24 Omeprazole 20 mg PO TID 11/11/17 04/30/24 Potassium Chloride ER [K-Dur 20] 20 meq PO BID 11/11/17 04/30/24 buPROPion XL [Wellbutrin XL] 150 mg PO HS 11/11/17 04/30/24 carvediloL [Coreg] 3.125 mg PO BID 11/11/17 04/30/24 Citalopram Hydrobromide [CeleXA] 40 mg PO DAILY 06/23/18 04/30/24 Atorvastatin Calcium [Lipitor] 10 mg PO HS 11/24/20 04/30/24 Ibuprofen [Motrin] 800 mg PO TID 11/24/20 04/30/24 Zolpidem Tartrate [Ambien] 10 mg PO HS 11/24/20 04/30/24 Baclofen [Lioresal] 10 mg PO BID 08/14/21 04/30/24 LORazepam [Ativan] 1 mg PO HS 08/21/23 04/30/24 levETIRAcetam [Keppra] 500 mg PO TID 08/21/23 04/30/24 Previous Rx's Medication Instructions Recorded methylPREDNISolone [Medrol Dose 0 mg PO DIRECTED #1 packet 07/11/24 Pack] Allergies Allergy/AdvReac Type Severity Reaction Status Date / Time ciprofloxacin [From Cipro] Allergy Unknown Verified 07/11/24 12:39 ciprofloxacin HCl Allergy Unknown Verified 07/11/24 12:39 [From Cipro] codeine Allergy Rash/Hives Verified 07/11/24 12:39 hydrocodone bitartrate Allergy Rash/Hives Verified 07/11/24 12:39 [From Lortab] hydromorphone [From Dilaudid] Allergy Rash/Hives Verified 07/11/24 12:39 meperidine HCl [From Demerol] Allergy Rash/Hives Verified 07/11/24 12:39 morphine Allergy Rash/Hives Verified 07/11/24 12:39 propoxyphene napsylate Allergy Rash/Hives Verified 07/11/24 12:39 [From Darvocet-N 100] soy Allergy Anaphylaxis Verified 07/11/24 12:39 Sulfa (Sulfonamide Allergy Rash/Hives Verified 07/11/24 12:39 Antibiotics) tetracycline [Tetracycline] Allergy Rash/Hives Verified 07/11/24 12:39 tioconazole [From Monistat 1] Allergy Rash/Hives Verified 07/11/24 12:39 tramadol Allergy Rash/Hives. Verified 07/11/24 12:39 "THROAT CLOSING UP" hemp Allergy Rash/Hives Uncoded 07/11/24 12:39 Review of Systems ROS Statement: Those systems with pertinent positive or pertinent negative responses have been documented in the HPI. ROS Other: All systems not noted in ROS Statement are negative. Past Medical History Past Medical History: Asthma, Cancer, GERD/Reflux, GI Bleed, Hearing Disorder / Deafness, Hyperlipidemia, Hypertension, Osteoarthritis (OA), Seizure Disorder, Thyroid Disorder Additional Past Medical History / Comment(s): Last seizure one year plus. Hard of hearing. MENIERES. Hx bilateral breast cancer 20 yrs ago. Hx bowel obstruction FROM DIVERTICULTIS. colitis. Exercise Induced Asthma. History of Any Multi-Drug Resistant Organisms: ESBL Date of last positivie culture/infection: 01/08/18 MDRO Source:: ESBL URINE Past Surgical History: Appendectomy, Back Surgery, Bariatric Surgery, Bowel Resection, Breast Surgery, Cholecystectomy, Heart Catheterization, Hernia Repair, Joint Replacement, Pacemaker, Tonsillectomy Additional Past Surgical History / Comment(s): LOWER BACK SURGERY. PACEMAKER. LAP BAND INSERTED & REMOVED. GASTRIC SLEEVE (2016). BILATERAL TOTAL KNEE REPLACEMENTS, CERVICAL FUSION (2-7). BOWEL RESECTION (DIVERTICULITIS). INCISIONAL HERNIA REPAIR SEVERAL HEART CATHS-NO STENTS. 1984 BILATERAL BREAST LUMPECTOMIES (CANCER). Past Anesthesia/Blood Transfusion Reactions: Previous Problems w/ Anesthesia Additional Past Anesthesia/Blood Transfusion Reaction / Comment(s): Blood transfusion X3 -no reaction. "Low BP with anesthesia if takes BP med AM of surgery." MENIERES DISEASE. Type of Cardiac Device: Permanent Pacemaker Device Placement Date:: 10/12/17 Past Psychological History: Anxiety, Depression Smoking Status: Never smoker Past Alcohol Use History: None Reported Past Drug Use History: None Reported - Past Family History Mother Family Medical History: Pulmonary Embolus Additional Family Medical History / Comment(s): Multiple TIA's. Father Family Medical History: Cancer Additional Family Medical History / Comment(s): Lung Cancer. Sister(s) Family Medical History: Cancer, Deep Vein Thrombosis (DVT), Pulmonary Embolus Additional Family Medical History / Comment(s): OVARIAN CANCER. General Exam - General Exam Comments Initial Comments: Visual Physical Exam Vital signs reviewed General: Well-appearing, nontoxic, no acute distress. Head: Normocephalic, atraumatic Eyes: PERRLA, EOMI ENT: Airway patent Chest: Nonlabored breathing Skin: Erythematous macular rash to bilateral upper extremities, normal skin tone Neuro: Alert and oriented 3 Musculoskeletal: No gross abnormalities Limitations: no limitations General appearance: alert, in no apparent distress Respiratory exam: Present: normal lung sounds bilaterally. Absent: respiratory distress, wheezes, rales, rhonchi, stridor Cardiovascular Exam: Present: regular rate, normal rhythm, normal heart sounds. Absent: systolic murmur, diastolic murmur, rubs, gallop, clicks Neurological exam: Present: alert, oriented X3, CN II-XII intact Skin exam: Present: warm, dry, intact, normal color, rash (Blanchable erythematous macular rash to bilateral upper extremities and chest. No skin sloughing.) Course Vital Signs 07/11/24 07/11/24 12:37 14:41 Temperature 97.9 F 98.5 F Pulse Rate 65 57 L Respiratory 18 16 Rate Blood Pressure 125/72 173/77 O2 Sat by Pulse 96 95 Oximetry Medical Decision Making - Medical Decision Making I performed the quick note portion of this chart. Electronically signed by YOUSIF ToddC Was pt. sent in by a medical professional or institution ([facility] Horne, [employer], urgent care, hospital, or prison...) When possible be specific @ -No Did you speak to anyone other than the patient for history (EMS, parent, family, police, friend...)? What history was obtained from this source @ -No Did you review nursing and triage notes (agree or disagree)? Why? @ -I reviewed and agree with nursing and triage notes Were old charts reviewed (outside hosp., previous admission, EMS record, old EKG, old radiological studies, urgent care reports/EKG's, prison records)? Report findings @ -No old charts were reviewed Differential Diagnosis (chest pain, altered mental status, abdominal pain women, abdominal pain men, vaginal bleeding, weakness, fever, dyspnea, syncope, headac he, dizziness, GI bleed, back pain, seizure, CVA, palpatations, mental health, musculoskeletal)? @ -Cellulitis, allergic reaction, dermatitis... This list is not meant to be all-inclusive EKG interpreted by me (3pts min.). @ -None done X-rays interpreted by me (1pt min.). @ -None done CT interpreted by me (1pt min.). @ -None done U/S interpreted by me (1pt. min.). @ -None done What testing was considered but not performed or refused? (CT, X-rays, U/S, labs)? Why? @ -None What meds were considered but not given or refused? Why? @ -None Did you discuss the management of the patient with other professionals (professionals i.e. ED[facility] Horne, [employer], lab, RT, psych nurse, social professionals, timber sizer operator, teacher, traffic control officer, director of casework)? Give summary @ -No Was smoking cessation discussed for >3mins.? @ -No Was critical care preformed (if so, how long)? @ -No Were there social determinants of health that impacted care today? How? (Homelessness, low income, unemployed, alcoholism, drug addiction, transportation, low edu. Level, literacy, decrease access to med. care, residential, rehab)? @ -No Was there de-escalation of care discussed even if they declined (Discuss DNR or withdrawal of care, Hospice)? DNR status @ -No What co-morbidities impacted this encounter? (DM, HTN, Smoking, COPD, CAD, Cancer, CVA, ARF, Chemo, Hep., AIDS, mental health diagnosis, sleep apnea, morbid obesity)? @ -None Was patient admitted / discharged? Hospital course, mention meds given and route, prescriptions, significant lab abnormalities, going to OR and other pertinent info. @ -Discharge. 74-year-old female presented to the ER for evaluation of a rash. Vitals within acceptable limits. Exam remarkable for a blanchable erythematous macular rash to bilateral upper extremities and chest. Rash appears allergic for which patient will be started on steroids and instructed to take [id number] Benadryl. Dosing instructions reviewed with patient. I advised close follow-up with PCP for reevaluation in the next 1 to 2 days. Return parameters discussed. Patient discharged stable condition. Patient verbally expressed understanding agree with care plan. Case discussed with ED attending, Dr. Landaverde. Undiagnosed new problem with uncertain prognosis? @ -No Drug Therapy requiring intensive monitoring for toxicity (Heparin, Nitro, Insulin, Cardizem)? @ -No Were any procedures done? @ -No Diagnosis/symptom? @ -Rash Acute, or Chronic, or Acute on Chronic? @ -Acute Uncomplicated (without systemic symptoms) or Complicated (systemic symptoms)? @ -Uncomplicated Side effects of treatment? @ -No Exacerbation, Progression, or Severe Exacerbation? @ -No Poses a threat to life or bodily function? How? (Chest pain, [place], [place], pneumonia, PE, COPD, DKA, ARF, appy, cholecystitis, CVA, Diverticulitis, Homicidal, Suicidal, threat to staff... and all critical care pts) @ -No Disposition Clinical Impression: Rash Disposition: HOME SELF-CARE Condition: Stable Instructions (If sedation given, give patient instructions): Acute Rash (ED) Additional Instructions: I recommend taking [id number] benadryl 25mg-50mg every 4-6 hours. Follow- up with PCP. Return to the ER for any new or worsening symptoms. Prescriptions: methylPREDNISolone [Medrol Dose Pack] 0 mg PO DIRECTED #1 packet Is patient prescribed a controlled substance at d/c from ED?: No Referrals: Cade Menendez DO [Primary Care Provider] - 1-2 days Time of Disposition: 15:06
[2024-07-11 14:43] VITALS: BP 173/77; PULSE 57; RESP 16; TEMP 98.5
== END 2024-07-11 15:23 | disposition home or self-care (01) ==
LOC: EC 12:34
DX: R21 Rash and other nonspecific skin eruption (principal); Z88.1 Allergy status to other antibiotic agents; Z88.2 Allergy status to sulfonamides; Z88.5 Allergy status to narcotic agent; Z91.018 Allergy to other foods; Z91.048 Other nonmedicinal substance allergy status; Z88.8 Allergy status to other drugs, medicaments and biological substances
CPT/HCPCS: 99282

== ENCOUNTER 2024-10-09 12:28 | Emergency (ER) | payer MEDICARE ==
--- NOTE | 2024-10-09 13:11 | ED ---
Headache HPI - General Chief Complaint: Headache Stated Complaint: Headache,neck pain Time Seen by Provider: 10/09/24 13:07 Source: patient, RN notes reviewed Mode of arrival: ambulatory Limitations: no limitations - History of Present Illness Initial Comments: 74-year-old female presenting for headache x 1 week. States she does have a history of migraines and this feels similar in quality but worse in severity and length. Describes a squeezing sensation over the top of her head. States the headache is intermittent. Denies head injury or trauma. Nausea, vomiting. States she has been taking ibuprofen which mildly relieves symptoms. Denies bl ood thinners. States she has a history of a pacemaker, hyperlipidemia, and hypertension. - Related Data Home Medications Medication Instructions Recorded Confirmed Levothyroxine Sodium [Synthroid] 50 mcg PO DAILY 11/11/17 04/30/24 Meclizine [Antivert] 25 mg PO TID 11/11/17 04/30/24 Omeprazole 20 mg PO TID 11/11/17 04/30/24 Potassium Chloride ER [K-Dur 20] 20 meq PO BID 11/11/17 04/30/24 buPROPion XL [Wellbutrin XL] 150 mg PO HS 11/11/17 04/30/24 carvediloL [Coreg] 3.125 mg PO BID 11/11/17 04/30/24 Citalopram Hydrobromide [CeleXA] 40 mg PO DAILY 06/23/18 04/30/24 Atorvastatin Calcium [Lipitor] 10 mg PO HS 11/24/20 04/30/24 Ibuprofen [Motrin] 800 mg PO TID 11/24/20 04/30/24 Zolpidem Tartrate [Ambien] 10 mg PO HS 11/24/20 04/30/24 Baclofen [Lioresal] 10 mg PO BID 08/14/21 04/30/24 LORazepam [Ativan] 1 mg PO HS 08/21/23 04/30/24 levETIRAcetam [Keppra] 500 mg PO TID 08/21/23 04/30/24 Previous Rx's Medication Instructions Recorded methylPREDNISolone [Medrol Dose 0 mg PO DIRECTED #1 packet 07/11/24 Pack] Allergies Allergy/AdvReac Type Severity Reaction Status Date / Time ciprofloxacin [From Cipro] Allergy Unknown Verified 10/09/24 12:32 ciprofloxacin HCl Allergy Unknown Verified 10/09/24 12:32 [From Cipro] codeine Allergy Rash/Hives Verified 10/09/24 12:32 hydrocodone bitartrate Allergy Rash/Hives Verified 10/09/24 12:32 [From Lortab] hydromorphone [From Dilaudid] Allergy Rash/Hives Verified 10/09/24 12:32 meperidine HCl [From Demerol] Allergy Rash/Hives Verified 10/09/24 12:32 morphine Allergy Rash/Hives Verified 10/09/24 12:32 propoxyphene napsylate Allergy Rash/Hives Verified 10/09/24 12:32 [From Darvocet-N 100] soy Allergy Anaphylaxis Verified 10/09/24 12:32 Sulfa (Sulfonamide Allergy Rash/Hives Verified 10/09/24 12:32 Antibiotics) tetracycline [Tetracycline] Allergy Rash/Hives Verified 10/09/24 12:32 tioconazole [From Monistat 1] Allergy Rash/Hives Verified 10/09/24 12:32 tramadol Allergy Rash/Hives. Verified 10/09/24 12:32 "THROAT CLOSING UP" hemp Allergy Rash/Hives Uncoded 07/11/24 12:39 Review of Systems ROS Statement: Those systems with pertinent positive or pertinent negative responses have been documented in the HPI. ROS Other: All systems not noted in ROS Statement are negative. Past Medical History Past Medical History: Asthma, Cancer, GERD/Reflux, GI Bleed, Hearing Disorder / Deafness, Hyperlipidemia, Hypertension, Osteoarthritis (OA), Seizure Disorder, Thyroid Disorder Additional Past Medical History / Comment(s): Last seizure one year plus. Hard of hearing. MENIERES. Hx bilateral breast cancer 20 yrs ago. Hx bowel obstruction FROM DIVERTICULTIS. colitis. Exercise Induced Asthma. History of Any Multi-Drug Resistant Organisms: ESBL Date of last positivie culture/infection: 01/08/18 MDRO Source:: ESBL URINE Past Surgical History: Appendectomy, Back Surgery, Bariatric Surgery, Bowel Resection, Breast Surgery, Cholecystectomy, Heart Catheterization, Hernia Repair, Joint Replacement, Pacemaker, Tonsillectomy Additional Past Surgical History / Comment(s): LOWER BACK SURGERY. PACEMAKER. LAP BAND INSERTED & REMOVED. GASTRIC SLEEVE (2016). BILATERAL TOTAL KNEE REPLACEMENTS, CERVICAL FUSION (2-7). BOWEL RESECTION (DIVERTICULITIS). INCISIONAL HERNIA REPAIR SEVERAL HEART CATHS-NO STENTS. 1984 BILATERAL BREAST LUMPECTOMIES (CANCER). Past Anesthesia/Blood Transfusion Reactions: Previous Problems w/ Anesthesia Additional Past Anesthesia/Blood Transfusion Reaction / Comment(s): Blood transfusion X3 -no reaction. "Low BP with anesthesia if takes BP med AM of surgery." MENIERES DISEASE. Type of Cardiac Device: Permanent Pacemaker Device Placement Date:: 10/12/17 Past Psychological History: Anxiety, Depression Smoking Status: Never smoker Past Alcohol Use History: None Reported Past Drug Use History: None Reported - Past Family History Mother Family Medical History: Pulmonary Embolus Additional Family Medical History / Comment(s): Multiple TIA's. Father Family Medical History: Cancer Additional Family Medical History / Comment(s): Lung Cancer. Sister(s) Family Medical History: Cancer, Deep Vein Thrombosis (DVT), Pulmonary Embolus Additional Family Medical History / Comment(s): OVARIAN CANCER. General Exam Limitations: no limitations General appearance: alert, in no apparent distress Head exam: Present: atraumatic, normocephalic, normal inspection Eye exam: Present: normal appearance, PERRL, EOMI. Absent: scleral icterus, conjunctival injection, periorbital swelling Respiratory exam: Present: normal lung sounds bilaterally. Absent: respiratory distress, wheezes, rales, rhonchi, stridor Cardiovascular Exam: Present: regular rate, normal rhythm, normal heart sounds. Absent: systolic murmur, diastolic murmur, rubs, gallop, clicks Neurological exam: Present: alert, oriented X3, CN II-XII intact Psychiatric exam: Present: normal affect, normal mood Skin exam: Present: warm, dry, intact, normal color. Absent: rash Course Vital Signs 10/09/24 10/09/24 12:30 13:08 Temperature 97.7 F 98.0 F Pulse Rate 68 62 Respiratory 16 14 Rate Blood Pressure 154/80 153/81 O2 Sat by Pulse 96 93 L Oximetry Medical Decision Making - Medical Decision Making Was pt. sent in by a medical professional or institution (, [place], HY[employer]IC P[employer]CH [employer] OPERATOR, urgent care, hospital, or correction...) When possible be specific @ -No Did you speak to anyone other than the patient for history (EMS, parent, family, police, friend...)? What history was obtained from this source @ -No Did you review nursing and triage notes (agree or disagree)? Why? @ -I reviewed and agree with nursing and triage notes Were old charts reviewed (outside hosp., previous admission, EMS record, old EKG, old radiological studies, urgent care reports/EKG's, correction records)? Report findings @ -No old charts were reviewed Differential Diagnosis (chest pain, altered mental status, abdominal pain women, abdominal pain men, vaginal bleeding, weakness, fever, dyspnea, syncope, headache, dizziness, GI bleed, back pain, seizure, CVA, palpatations, mental health, musculoskeletal)? @ -Differential Headache: Migraine, tension, cluster, carbon monoxide, central venous thrombosis, pension karma temporal arteritis, acute closure glaucoma, intercranial hemorrhage, mastoiditis, sinusitis, head injury, this is not meant to be an all-inclusive list. EKG interpreted by me (3pts min.). @ -None X-rays interpreted by me (1pt min.). @ -None done CT interpreted by me (1pt min.). @ -CT brain reveals no acute intracranial process U/S interpreted by me (1pt. min.). @ -None done What testing was considered but not performed or refused? (CT, X-rays, U/S, labs)? Why? @ -None What meds were considered but not given or refused? Why? @ -None Did you discuss the management of the patient with other professionals (professionals i.e. , PA, HYDRAULIC PUNCH PRESS OPERATOR, lab, RT, psych nurse, nephrology social worker, corporation lawyer, teacher, custody officer, corrections caseworker)? Give summary @ -No Was smoking cessation discussed for >3mins.? @ -No Was critical care preformed (if so, how long)? @ -No Were there social determinants of health that impacted care today? How? (Homelessness, low income, unemployed, alcoholism, drug addiction, transportation, low edu. Level, literacy, decrease access to med. care, shelter, rehab)? @ -No Was there de-escalation of care discussed even if they declined (Discuss DNR or withdrawal of care, Hospice)? DNR status @ -No What co-morbidities impacted this encounter? (DM, HTN, Smoking, COPD, CAD, Cancer, CVA, ARF, Chemo, Hep., AIDS, mental health diagnosis, sleep apnea, morbid obesity)? @ -None Was patient admitted / discharged? Hospital course, mention meds given and route, prescriptions, significant lab abnormalities, going to OR and other pertinent info. @ -Discharge. 74-year-old female with history of migraines presenting for headache x 1 week. Denies injury or trauma. Neurological examination is unremarkable. Provided with IV fluids, Benadryl, Reglan, and Tylenol. Lab work remarkable for hemoglobin 8.7. CT brain reveals no acute intracranial process. Discussed results with patient. Upon reevaluation, patient reports significant improvement of symptoms. Patient does states she has a history of anemia. She did have endoscopy in 2021 for anemia to check for GI bleed and everything came back normal at that time. Patient denies any dark or tarry stools, nausea, vomiting, or abdominal pain. Advised to follow-up with her PCP next week for hemoglobin recheck. Appropriate return precautions discussed. Case was discussed with my ED attending Dr. Landaverde. Undiagnosed new problem with uncertain prognosis? @ -No Drug Therapy requiring intensive monitoring for toxicity (Heparin, Nitro, Insulin, Cardizem)? @ -No Were any procedures done? @ -No Diagnosis/symptom? @ -Headache Acute, or Chronic, or Acute on Chronic? @ -Acute Uncomplicated (without systemic symptoms) or Complicated (systemic symptoms)? @ -Uncomplicated Side effects of treatment? @ -No Exacerbation, Progression, or Severe Exacerbation? @ -No Poses a threat to life or bodily function? How? (Chest pain, [place], [place], pneumonia, PE, COPD, DKA, ARF, appy, cholecystitis, CVA, Diverticulitis, Homicidal, Suicidal, threat to staff... and all critical care pts) @ -Not at this time - Lab Data Result diagrams: 10/09/24 13:24 10/09/24 13:24 Lab Results 10/09/24 10/09/24 Range/Units 13:24 13:24 WBC 4.66 (4.50-10.00) 10*3/uL RBC 4.35 (4.10-5.20) 10*6/uL Hgb 8.7 L (12.0-15.0) g/dL Hct 29.0 L (37.2-46.3) % MCV 66.7 L (80.0-97.0) fL MCH 20.0 L (27.0-32.0) pg MCHC 30.0 L (32.0-37.0) g/dL Plt Count 363 (140-440) 10*3/uL MPV 9.4 L (9.5-12.2) fL Immature Gran % (Auto) 0.2 % Neutrophils % 45.4 % Lymphocytes % 36.7 % Monocytes % 9.7 % Eosinophils % 6.9 % Basophils % 1.1 % Immature Gran # 0.01 (0.00-0.04) 10*3/uL Neutrophils # 2.12 (1.80-7.70) 10*3/uL Lymphocytes # 1.71 (0.90-5.00) 10*3/uL Monocytes # 0.45 (0.20-1.00) 10*3/uL Eosinophils # 0.32 (0.04-0.35) 10*3/uL Basophils # 0.05 (0.00-0.10) 10*3/uL Sodium 135 L (137-145) mmol/L Potassium 4.8 (3.5-5.1) mmol/L Chloride 104 (98-107) mmol/L Carbon Dioxide 22 (22-30) mmol/L Anion Gap 9 mmol/L BUN 6 L (7-17) mg/dL Creatinine 0.72 (0.52-1.04) mg/dL Est GFR (CKD-EPI)AfAm >90 (>60 ml/min/1.73 sqM) Est GFR (CKD-EPI)NonAf 83 (>60 ml/min/1.73 sqM) Glucose 81 (74-99) mg/dL Calcium 9.0 (8.4-10.2) mg/dL Total Bilirubin 0.5 (0.2-1.3) mg/dL AST 16 (14-36) U/L ALT 7 (4-34) U/L Alkaline Phosphatase 104 (38-126) U/L Total Protein 6.3 (6.3-8.2) g/dL Albumin 3.5 (3.5-5.0) g/dL Disposition Clinical Impression: Headache Disposition: HOME SELF-CARE Condition: Stable Instructions (If sedation given, give patient instructions): Acute Headache (ED) Additional Instructions: Please follow-up with your doctor next week for repeat hemoglobin. Please return to the Emergency Department if symptoms worsen or any other concerns. Is patient prescribed a controlled substance at d/c from ED?: No Referrals: Cade Menendez DO [Primary Care Provider] - 1-2 days Time of Disposition: 14:22
[2024-10-09 13:26] VITALS: RESP 14
[2024-10-09] MEDS: SODIUM CHLORIDE 0.9% 1,000 ML IV STA (13:28)
[2024-10-09] MEDS: diphenhydrAMINE 50 MG/ML 1 ML VIAL IVP STA (13:30)
[2024-10-09] MEDS: ACETAMINOPHEN TAB 500 MG TAB PO STA (13:30)
[2024-10-09] MEDS: METOCLOPRAMIDE 5 MG/ML 2 ML VIAL IVP STA (13:31)
[2024-10-09 13:48] LABS: Basophils # (A) 0.05 10*3/uL (0.00-0.10); Basophils % (A) 1.1 %; Eosinophils # (A) 0.32 10*3/uL (0.04-0.35); Eosinophils % (A) 6.9 %; HGB 8.7 g/dL (12.0-15.0); Lymphocytes # (A) 1.71 10*3/uL (0.90-5.00); Lymphocytes % (A) 36.7 %; MCV 66.7 fL (80.0-97.0); Mean Platelet Volume 9.4 fL (9.5-12.2); Monocytes # (A) 0.45 10*3/uL (0.20-1.00); Monocytes % (A) 9.7 %; Neutrophils # (A) 2.12 10*3/uL (1.80-7.70); Neutrophils % (A) 45.4 %; Platelet Count 363 10*3/uL (140-440); RBC 4.35 10*6/uL (4.10-5.20); RDW 18.1 % (11.5-14.5); WBC 4.66 10*3/uL (4.50-10.00)
[2024-10-09 14:02] LABS: ALT 7 U/L (4-34); AST 16 U/L (14-36); African American GFR (CKD) >90 (>60 ml/min/1.73 sqM); Albumin 3.5 g/dL (3.5-5.0); Alkaline Phosphatase 104 U/L (38-126); Anion Gap 9 mmol/L; Blood Urea Nitrogen 6 mg/dL (7-17); Carbon Dioxide 22 mmol/L (22-30); Chloride 104 mmol/L (98-107); Glucose 81 mg/dL (74-99); Non-African American GFR(CKD) 83 (>60 ml/min/1.73 sqM); Potassium 4.8 mmol/L (3.5-5.1); Sodium 135 mmol/L (137-145); Total Bilirubin 0.5 mg/dL (0.2-1.3); Total Protein 6.3 g/dL (6.3-8.2)
--- NOTE | 2024-10-09 14:02 | CT ---
EXAMINATION TYPE: CT brain wo con DATE OF EXAM: 10/09/2024 COMPARISON: 08/21/2023 CLINICAL INDICATION: Female, 74 years old with history of headache x 1 week; PHH, headache x [address] DLP: 1141.4 mGycm Automated exposure control for dose reduction was used. Findings: The ventricles, basal cisterns and sulci over the convexities are within normal limits and there is n o mass effect or shift of midline structures. No abnormal density is seen throughout the brain parenchyma and there is no acute intra or extra-axia l hemorrhage. The posterior fossa including the brainstem, fourth ventricle and cerebellar pontine angles appear no rmal. Intraorbital contents appear normal and symmetric. Visualized paranasal sinuses and mastoid air cells are well aerated. The calvarium is intact. IMPRESSION: No significant abnormality seen. There is no acute bleed or mass effect. [facility], , 10/09/2024 1:59 PM
[2024-10-09] MEDS: KETOROLAC 15 MG/ML 1 ML VIAL IVP STA (14:30)
[2024-10-09 14:49] VITALS: BP 173/91; PULSE 59; TEMP 97.7
== END 2024-10-09 14:49 | disposition home or self-care (01) ==
LOC: EC 12:28
DX: R51.9 Headache, unspecified (principal); Z88.1 Allergy status to other antibiotic agents; Z88.2 Allergy status to sulfonamides; Z88.5 Allergy status to narcotic agent; Z88.8 Allergy status to other drugs, medicaments and biological substances
CPT/HCPCS: 36415; 80053; 85025; 70450; 99284; 96374; 96375 ×2; 96361; J1200; J2765; J1885

== ENCOUNTER 2024-10-10 14:28 | Emergency (ER) | payer MEDICARE ==
[2024-10-10 15:02] VITALS: TEMP 98.3
--- NOTE | 2024-10-10 15:27 | ED ---
Weakness HPI - General Source: patient, RN notes reviewed Mode of arrival: wheelchair Limitations: no limitations <Darcy Rome - Last Filed: 10/10/24 15:25> <Heydi Bishop - Last Filed: 10/10/24 23:13> - General Source: RN notes reviewed, old records reviewed Mode of arrival: ambulatory Limitations: no limitations - History of Present Illness MD Complaint: generalized weakness, lack of energy -: days(s) Location: generalized Severity: mild Severity scale (1-10): 2 Worsens with: none Context: history of similar Associated Symptoms: denies other symptoms <Richie Robertson - Last Filed: 10/10/24 23:33> - General Chief complaint: Weakness Stated complaint: Headache Time Seen by Provider: 10/10/24 15:25 - History of Present Illness Initial comments: Quick [id number] female presenting for generalized weakness x 2 weeks. States she has been having dark, tarry stools for 2 weeks. States she was here yesterday for headache where CT of the brain was performed and was negative however was told her hemoglobin was low and to follow-up with her PCP. Denies abdominal pain, fevers. (Darcy Rome) Patient is a 74-year-old female presenting today for headache and generalized weakness as well as black tarry stools. Patient states that she woke up this morning and could barely get out of bed and she was so weak. She was seen here yesterday for headache and told her hemoglobin was low. She has had this headache "for a while" ongoing for at least weeks if not months. It is described as intermittently pounding. She denies any focal numbness weakness related slurred speech. She is not on blood thinners. She states she takes 600 mg of ibuprofen every 8 hours for headache and arthritis. She has been taking this every day for at least 1 month. She endorses intermittent mild burning abdominal pain. Prior surgeries include a prior appendectomy. She denies alcohol use. Once in a while will use an ASA as needed for aches and pains. States she has had some blurriness of vision in her left eye with discharge and redness. Denies fevers or chills. Endorses intermittent chest pressure x 1 day. Denies shortness of breath. Denies lower extremity swelling. Endorses lightheadedness with ambulation. Does have a history of a prior GI bleed. (Heydi Bishop) This is a 74-year-old female for the weakness feels like she has a low hemoglobin concern for black stools dark stools with history of prior GI bleed (Richie Robertson) - Related Data Home Medications Medication Instructions Recorded Confirmed Levothyroxine Sodium [Synthroid] 50 mcg PO DAILY 11/11/17 04/30/24 Meclizine [Antivert] 25 mg PO TID 11/11/17 04/30/24 Omeprazole 20 mg PO TID 11/11/17 04/30/24 Potassium Chloride ER [K-Dur 20] 20 meq PO BID 11/11/17 04/30/24 buPROPion XL [Wellbutrin XL] 150 mg PO HS 11/11/17 04/30/24 carvediloL [Coreg] 3.125 mg PO BID 11/11/17 04/30/24 Citalopram Hydrobromide [CeleXA] 40 mg PO DAILY 06/23/18 04/30/24 Atorvastatin Calcium [Lipitor] 10 mg PO HS 11/24/20 04/30/24 Ibuprofen [Motrin] 800 mg PO TID 11/24/20 04/30/24 Zolpidem Tartrate [Ambien] 10 mg PO HS 11/24/20 04/30/24 Baclofen [Lioresal] 10 mg PO BID 08/14/21 04/30/24 LORazepam [Ativan] 1 mg PO HS 08/21/23 04/30/24 levETIRAcetam [Keppra] 500 mg PO TID 08/21/23 04/30/24 Previous Rx's Medication Instructions Recorded methylPREDNISolone [Medrol Dose 0 mg PO DIRECTED #1 packet 07/11/24 Pack] Allergies Allergy/AdvReac Type Severity Reaction Status Date / Time ciprofloxacin [From Cipro] Allergy Unknown Verified 10/10/24 15:02 ciprofloxacin HCl Allergy Unknown Verified 10/10/24 15:02 [From Cipro] codeine Allergy Rash/Hives Verified 10/10/24 15:02 hydrocodone bitartrate Allergy Rash/Hives Verified 10/10/24 15:02 [From Lortab] hydromorphone [From Dilaudid] Allergy Rash/Hives Verified 10/10/24 15:02 meperidine HCl [From Demerol] Allergy Rash/Hives Verified 10/10/24 15:02 morphine Allergy Rash/Hives Verified 10/10/24 15:02 propoxyphene napsylate Allergy Rash/Hives Verified 10/10/24 15:02 [From Darvocet-N 100] soy Allergy Anaphylaxis Verified 10/10/24 15:02 Sulfa (Sulfonamide Allergy Rash/Hives Verified 10/10/24 15:02 Antibiotics) tetracycline [Tetracycline] Allergy Rash/Hives Verified 10/10/24 15:02 tioconazole [From Monistat 1] Allergy Rash/Hives Verified 10/10/24 15:02 tramadol Allergy Rash/Hives. Verified 10/10/24 15:02 "THROAT CLOSING UP" hemp Allergy Rash/Hives Uncoded 07/11/24 12:39 Review of Systems ROS Other: All systems not noted in ROS Statement are negative. <Darcy Rome - Last Filed: 10/10/24 15:25> ROS Other: All systems not noted in ROS Statement are negative. <Heydi Bishop - Last Filed: 10/10/24 23:13> ROS Other: All systems not noted in ROS Statement are negative. <Richie Robertson - Last Filed: 10/10/24 23:33> ROS Statement: Those systems with pertinent positive or pertinent negative responses have been documented in the HPI. Past Medical History Past Medical History: Asthma, Cancer, GERD/Reflux, GI Bleed, Hearing Disorder / Deafness, Hyperlipidemia, Hypertension, Osteoarthritis (OA), Seizure Disorder, Thyroid Disorder Additional Past Medical History / Comment(s): Last seizure one year plus. Hard of hearing. MENIERES. Hx bilateral breast cancer 20 yrs ago. Hx bowel obstruction FROM DIVERTICULTIS. colitis. Exercise Induced Asthma. History of Any Multi-Drug Resistant Organisms: ESBL Date of last positivie culture/infection: 01/08/18 MDRO Source:: ESBL URINE Past Surgical History: Appendectomy, Back Surgery, Bariatric Surgery, Bowel Resection, Breast Surgery, Cholecystectomy, Heart Catheterization, Hernia Repair, Joint Replacement, Pacemaker, Tonsillectomy Additional Past Surgical History / Comment(s): LOWER BACK SURGERY. PACEMAKER. LAP BAND INSERTED & REMOVED. GASTRIC SLEEVE (2016). BILATERAL TOTAL KNEE REPLACEMENTS, CERVICAL FUSION (2-7). BOWEL RESECTION (DIVERTICULITIS). INCISIONAL HERNIA REPAIR SEVERAL HEART CATHS-NO STENTS. 1984 BILATERAL BREAST LUMPECTOMIES (CANCER). Past Anesthesia/Blood Transfusion Reactions: Previous Problems w/ Anesthesia Additional Past Anesthesia/Blood Transfusion Reaction / Comment(s): Blood transfusion X3 -no reaction. "Low BP with anesthesia if takes BP med AM of surgery." MENIERES DISEASE. Type of Cardiac Device: Permanent Pacemaker Device Placement Date:: 10/12/17 Past Psychological History: Anxiety, Depression Smoking Status: Never smoker Past Alcohol Use History: None Reported Past Drug Use History: None Reported - Past Family History Mother Family Medical History: Pulmonary Embolus Additional Family Medical History / Comment(s): Multiple TIA's. Father Family Medical History: Cancer Additional Family Medical History / Comment(s): Lung Cancer. Sister(s) Family Medical History: Cancer, Deep Vein Thrombosis (DVT), Pulmonary Embolus Additional Family Medical History / Comment(s): OVARIAN CANCER. <Darcy Rome - Last Filed: 10/10/24 15:25> General Exam Limitations: no limitations <Darcy Rome - Last Filed: 10/10/24 15:25> <Heydi Bishop - Last Filed: 10/10/24 23:13> General appearance: alert, in no apparent distress Head exam: Present: atraumatic, normocephalic, normal inspection Eye exam: Present: normal appearance, PERRL, EOMI. Absent: scleral icterus, conjunctival injection, periorbital swelling ENT exam: Present: normal exam, mucous membranes moist Neck exam: Present: normal inspection. Absent: tenderness, meningismus, lymphadenopathy Respiratory exam: Present: normal lung sounds bilaterally. Absent: respiratory distress, wheezes, rales, rhonchi, stridor Cardiovascular Exam: Present: regular rate, normal rhythm, normal heart sounds. Absent: systolic murmur, diastolic murmur, rubs, gallop, clicks GI/Abdominal exam: Present: soft, normal bowel sounds. Absent: distended, tenderness, guarding, rebound, rigid Extremities exam: Present: normal inspection, full ROM, normal capillary refill. Absent: tenderness, pedal edema, joint swelling, calf tenderness Back exam: Present: normal inspection Neurological exam: Present: alert, oriented X3, CN II-XII intact Psychiatric exam: Present: normal affect, normal mood Skin exam: Present: warm, dry, intact, normal color. Absent: rash <Richie Robertson - Last Filed: 10/10/24 23:33> - General Exam Comments Initial Comments: Visual Physical Exam Vital signs reviewed General: Well-appearing, nontoxic, no acute distress. Head: Normocephalic, atraumatic Eyes: PERRLA, EOMI ENT: Airway patent Chest: Nonlabored breathing Skin: No visual rash, normal skin tone Neuro: Alert and oriented 3 Musculoskeletal: No gross abnormalities (Darcy Rome) PE: CONSTITUTIONAL: No apparent distress, ill-appearing nontoxic SKIN: Pale, warm, dry, no jaundice, hives or petechiae EYES: Pupils are equally round, extraocular movements intact without nystagmus, pale conjunctiva, non-icteric sclera HENT: Normocephalic, atraumatic, moist mucus membranes, oropharynx clear NECK: , Full range of motion, normal appearance PULMONARY: Clear to auscultation without wheezes, rhonchi, or rales, normal excursion, no accessory muscle use and no stridor CARDIOVASCULAR: Regular rate, rhythm, normal S1 and S2. No appreciated murmurs, rubs or gallops. Strong radial pulses with intact distal perfusion. No lower extremity edema GASTROINTESTINAL: Soft, active bowel sounds throughout, non-tender, non- distended, no palpable masses, no rebound or guarding. No hepatosplenomegaly MUSCULOSKELETAL: Extremities have no gross deformity, no edema, redness, or swelling. No calf swelling NEUROLOGIC:_a/o x 3, GCS 15, normal mentation and speech. Moves all extremities x 4 without motor or sensory deficit PSYCHIATRIC:_normal mood and affect, thought process is clear and linear (,Heydi) Course <Richie Robertson - Last Filed: 10/10/24 23:33> Vital Signs 10/10/24 10/10/24 14:59 22:50 Temperature 98.3 F Pulse Rate 62 86 Respiratory 16 18 Rate Blood Pressure 145/78 185/83 O2 Sat by Pulse 94 L 97 Oximetry - Reevaluation(s) Reevaluation #1: 10/10/24 23:32 Medical records reviewed (Richie Robertson) Reevaluation #2: 10/10/24 23:32 Patient symptoms improved (Richie Robertson) Reevaluation #3: 10/10/24 23:32 Patient informed of results and questions answered (Richie Robertson) Reevaluation #4: Was pt. sent in by a medical professional or institution ([facility] Horne, WOOD LATHE OPERATOR, urgent care, hospital, or jail...) When possible be specific @ -no Did you speak to anyone other than the patient for history (EMS, parent, family, police, friend...)? What history was obtained from this source @ -no Did you review nursing and triage notes (agree or disagree)? Why? @ -agree Are old charts reviewed (outside hosp., previous admission, EMS record, old EKG, old radiological studies, urgent care reports/EKG's, jail records)? Report findings @ -yes Differential Diagnosis (chest pain, altered mental status, abdominal pain women, abdominal pain men, vaginal bleeding, weakness, fever, dyspnea, syncope, head ache, dizziness, GI bleed, back pain, seizure, CVA, palpatations, mental health, musculoskeletal)? @ -prior EKG interpreted by me (3pts min.). @ -yes X-rays interpreted by me (1pt min.). @ -yes negative for acute disease CT interpreted by me (1pt min.). @ -no U/S interpreted by me (1pt. min.). @ -no What testing was considered but not performed or refused? (CT, X-rays, U/S, labs)? Why? @ -none What meds were considered but not given or refused? Why? @ -none Did you discuss the management of the patient with other professionals (professionals i.e. [facility] Horne, WOOD LATHE OPERATOR, lab, RT, psych nurse, social and political studies professor, human resources operations specialist, teacher, protective officer, lead case manager)? Give summary @ -no Was smoking cessation discussed for >3mins.? @ -no Was critical care preformed (if so, how long)? @ -no Were there social determinants of health that impacted care today? How? (Homelessness, low income, unemployed, alcoholism, drug addiction, transportation, low edu. Level, literacy, decrease access to med. care, detention, rehab)? @ -none Was there de-escalation of care discussed even if they declined (Discuss DNR or withdrawal of care, Hospice)? DNR status @ -no What co-morbidities impacted this encounter? (DM, HTN, Smoking, COPD, CAD, Cancer, CVA, ARF, Chemo, Hep., AIDS, mental health diagnosis, sleep apnea, mor bid obesity)? @ -none Was patient admitted / discharged? Hospital course, mention meds given and [place], prescriptions, significant lab abnormalities, going to OR and other pertinent info. @ - Undiagnosed new problem with uncertain prognosis? @ -no Drug Therapy requiring intensive monitoring for toxicity (Heparin, Nitro, Insulin, Cardizem)? @ -no Were any procedures done? @ -no Diagnosis/symptom? @ - Acute, or Chronic, or Acute on Chronic? @ -Acute Uncomplicated (without systemic symptoms) or Complicated (systemic symptoms)? @ -Complicated Side effects of treatment? @ -no Exacerbation, Progression, or Severe Exacerbation? @ -exacerbation Poses a threat to life or bodily function? How? (Chest pain, USA, LA, pneumonia, PE, COPD, DKA, ARF, appy, cholecystitis, CVA, Diverticulitis, Homicidal, Suicidal, threat to staff... and all critical care pts) @ -yes (Richie Robertson) Reevaluation #5: Differential Weakness: Hypoglycemia, shock, sepsis, hyponatremia, anemia, infection, LA, ETOH, adverse medicine reaction, overdose, stroke, this is not meant to be an all-inclusive list. (Richie Robertson) EKG Findings - EKG Comments: EKG Findings:: Electronic paced rhythm, rate 49 bpm intervals within acceptable limits, left axis deviation, no significant ST elevations or depressions no arrhythmia <Heydi Bishop - Last Filed: 10/10/24 23:13> Medical Decision Making <Darcy Rome - Last Filed: 10/10/24 15:25> - Lab Data Result diagrams: 10/10/24 20:19 10/10/24 20:19 <Heydi Bishop - Last Filed: 10/10/24 23:13> - Lab Data Result diagrams: 10/10/24 20:19 10/10/24 20:19 - EKG Data -: EKG Interpreted by Me - Radiology Data Radiology results: report reviewed (Chest x-ray is negative for acute disease), image reviewed <Richie Robertson - Last Filed: 10/10/24 23:33> - Medical Decision Making I completed the quick note portion of this chart signed Darcy Rome PA-C (Darcy Rome) Was pt. sent in by a medical professional or institution (, EDD, WOOD LATHE OPERATOR, urgent care, hospital, or jail...) When possible be specific @ -No Did you speak to anyone other than the patient for history (EMS, parent, family, police, friend...)? What history was obtained from this source @ -No Did you review nursing and triage notes (agree or disagree)? Why? @ -I reviewed and agree with nursing and triage notes Were old charts reviewed (outside hosp., previous admission, EMS record, old EKG, old radiological studies, urgent care reports/EKG's, jail records)? Report findings @ -Medical records reviewed-patient was seen here yesterday for a headache, CT brain was negative for acute process hemoglobin was 8.7. Differential Diagnosis (chest pain, altered mental status, abdominal pain women, abdominal pain men, vaginal bleeding, weakness, fever, dyspnea, syncope, headache, dizziness, GI bleed, back pain, seizure, CVA, palpatations, mental health, musculoskeletal)? @Differential Weakness: Hypoglycemia, shock, sepsis, hyponatremia, anemia, infection, LA, ETOH, adverse medicine reaction, overdose this is not meant to be an all-inclusive list. Differential GI Bleed: Esophageal varices, aortoenteric fistula, Yu-Hannah, gastritis, peptic ulcer disease, diverticulosis, inflammatory bowel disease, hemorrhoids, fissure, colitis, malignancy, Meckel's diverticulum, this is not meant to be an all-incl usive list. EKG interpreted by me (3pts min.). @ -As above X-rays interpreted by me (1pt min.). @ -None done CT interpreted by me (1pt min.). @ -None done U/S interpreted by me (1pt. min.). @ -None done What testing was considered but not performed or refused? (CT, X-rays, U/S, labs)? Why? @Hemoccult testing was ordered and considered however patient in the waiting room during my shift I was unable to obtain this What meds were considered but not given or refused? Why? @ -None Did you discuss the management of the patient with other professionals (professionals i.e. , PA, WOOD LATHE OPERATOR, lab, RT, psych nurse, social and political studies professor, human resources operations specialist, teacher, protective officer, lead case manager)? Give summary @ -No Was smoking cessation discussed for >3mins.? @ -No Was critical care preformed (if so, how long)? @ -No Were there social determinants of health that impacted care today? How? (Homelessness, low income, unemployed, alcoholism, drug addiction, transportation, low edu. Level, literacy, decrease access to med. care, detention, rehab)? @ -No Was there de-escalation of care discussed even if they declined (Discuss DNR or withdrawal of care, Hospice)? @ -No What co-morbidities impacted this encounter? (DM, HTN, Smoking, COPD, CAD, Cancer, CVA, ARF, Chemo, Hep., AIDS, mental health diagnosis, sleep apnea, morbid obesity)? Arthritis, on NSAIDs Was patient admitted / discharged? Hospital course, mention meds given and route, prescriptions, significant lab abnormalities, going to OR and other pertinent info. @Signed out to oncoming physician- this is a pleasant 74-year-old female presenting today for generalized weakness, dark stools and headache.Vital signs on arrival are overall stable, pulse ox is 94%, no tachycardia or hypotension. Patient was initially seen and assessed in the waiting room due to ED overflow capacity due to multiple boarding patients. I obtained patient's permission to obtain her history and perform her assessment in the waiting room to which she was agreeable. Exam was significant for generalized pallor, pale conjunctiva and a soft nontender abdomen. Discussed with patient plan for labs, IV fluids, regarding pain control patient is allergic to many pain medications so we will trial small dose of Valium, will obtain EKG and chest x-ray as well given generalized weakness. Patient agreeable w/ plan of care. 9:00 PM, My shift has come to a close, case was signed out to oncoming physician Dr. Robertson pending completion of labs and final disposition. (,Heydi) 74 female to the ER for evaluation of weakness, patient has normal hemoglobin improved from prior, feels well throughout ER stay and can be discharged home (Richie Roebrtson) - Lab Data Lab Results 10/10/24 10/10/24 10/10/24 Range/Units 20:19 20:19 20:19 WBC 5.86 (4.50-10.00) 10*3/uL RBC 5.45 H (4.10-5.20) 10*6/uL Hgb 11.0 L (12.0-15.0) g/dL Hct 36.9 L (37.2-46.3) % MCV 67.7 L (80.0-97.0) fL MCH 20.2 L (27.0-32.0) pg MCHC 29.8 L (32.0-37.0) g/dL Plt Count 426 (140-440) 10*3/uL MPV 9.2 L (9.5-12.2) fL Immature Gran % (Auto) 0 % Neutrophils % 50.8 % Lymphocytes % 34.6 % Monocytes % 8.7 % Eosinophils % 4.9 % Basophils % 1.0 % Immature Gran # 0.00 (0.00-0.04) 10*3/uL Neutrophils # 2.97 (1.80-7.70) 10*3/uL Lymphocytes # 2.03 (0.90-5.00) 10*3/uL Monocytes # 0.51 (0.20-1.00) 10*3/uL Eosinophils # 0.29 (0.04-0.35) 10*3/uL Basophils # 0.06 (0.00-0.10) 10*3/uL PT 10.1 (10.0-12.5) sec INR 0.9 (<1.2) APTT 23.2 (22.0-30.0) sec Sodium 138 (137-145) mmol/L Potassium 4.3 (3.5-5.1) mmol/L Chloride 103 (98-107) mmol/L Carbon Dioxide 23 (22-30) mmol/L Anion Gap 12 mmol/L BUN 7 (7-17) mg/dL Creatinine 0.71 (0.52-1.04) mg/dL Est GFR (CKD-EPI)AfAm >90 (>60 ml/min/1.73 sqM) Est GFR (CKD-EPI)NonAf 84 (>60 ml/min/1.73 sqM) Glucose 85 (74-99) mg/dL Calcium 9.9 (8.4-10.2) mg/dL Magnesium 2.3 (1.6-2.3) mg/dL Total Bilirubin 0.7 (0.2-1.3) mg/dL AST 20 (14-36) U/L ALT 9 (4-34) U/L Alkaline Phosphatase 137 H (38-126) U/L Troponin I (0.000-0.034) ng/mL Total Protein 8.2 (6.3-8.2) g/dL Albumin 4.7 (3.5-5.0) g/dL 10/10/24 Range/Units 20:19 WBC (4.50-10.00) 10*3/uL RBC (4.10-5.20) 10*6/uL Hgb (12.0-15.0) g/dL Hct (37.2-46.3) % MCV (80.0-97.0) fL MCH (27.0-32.0) pg MCHC (32.0-37.0) g/dL Plt Count (140-440) 10*3/uL MPV (9.5-12.2) fL Immature Gran % (Auto) % Neutrophils % % Lymphocytes % % Monocytes % % Eosinophils % % Basophils % % Immature Gran # (0.00-0.04) 10*3/uL Neutrophils # (1.80-7.70) 10*3/uL Lymphocytes # (0.90-5.00) 10*3/uL Monocytes # (0.20-1.00) 10*3/uL Eosinophils # (0.04-0.35) 10*3/uL Basophils # (0.00-0.10) 10*3/uL PT (10.0-12.5) sec INR (<1.2) APTT (22.0-30.0) sec Sodium (137-145) mmol/L Potassium (3.5-5.1) mmol/L Chloride (98-107) mmol/L Carbon Dioxide (22-30) mmol/L Anion Gap mmol/L BUN (7-17) mg/dL Creatinine (0.52-1.04) mg/dL Est GFR (CKD-EPI)AfAm (>60 ml/min/1.73 sqM) Est GFR (CKD-EPI)NonAf (>60 ml/min/1.73 sqM) Glucose (74-99) mg/dL Calcium (8.4-10.2) mg/dL Magnesium (1.6-2.3) mg/dL Total Bilirubin (0.2-1.3) mg/dL AST (14-36) U/L ALT (4-34) U/L Alkaline Phosphatase (38-126) U/L Troponin I <0.012 (0.000-0.034) ng/mL Total Protein (6.3-8.2) g/dL Albumin (3.5-5.0) g/dL Disposition <Darcy Rome - Last Filed: 10/10/24 15:25> <Heydi Bishop - Last Filed: 10/10/24 23:13> Is patient prescribed a controlled substance at d/c from ED?: No Time of Disposition: 22:20 <Richie Robertson - Last Filed: 10/10/24 23:33> Clinical Impression: Weakness Disposition: HOME SELF-CARE Condition: Good Instructions (If sedation given, give patient instructions): Weakness (ED) Referrals: Cade Menendez DO [Primary Care Provider] - 1-2 days
--- NOTE | 2024-10-10 20:08 | XR ---
EXAMINATION TYPE: XR chest 2V DATE OF EXAM: 10/10/2024 7:49 PM COMPARISON: Chest radiograph 2020. CLINICAL INDICATION: Female, 74 years old with history of Weakness; [facility] TECHNIQUE: XR chest 2V Frontal and lateral views of the chest. FINDINGS: Lungs/Pleura: There is no evidence of pleural effusion, focal consolidation, or pneumothorax. Pulmonary vascularity: Unremarkable. Heart/mediastinum: Cardiomediastinal silhouette is unremarkable. Musculoskeletal: No acute osseous pathology. Lumbar spine fusion hardware. Cervical spine fusion hard massey. Other findings: None Lines/Tubes: Left chest wall cardiac pacemaker device. IMPRESSION: No acute cardiopulmonary disease/process. [facility], , 10/10/2024 8:05 PM
[2024-10-10 20:34] LABS: Basophils # (A) 0.06 10*3/uL (0.00-0.10); Eosinophils # (A) 0.29 10*3/uL (0.04-0.35); Eosinophils % (A) 4.9 %; HCT 36.9 % (37.2-46.3); Lymphocytes # (A) 2.03 10*3/uL (0.90-5.00); Lymphocytes % (A) 34.6 %; MCH 20.2 pg (27.0-32.0); MCHC 29.8 g/dL (32.0-37.0); MCV 67.7 fL (80.0-97.0); Mean Platelet Volume 9.2 fL (9.5-12.2); Monocytes # (A) 0.51 10*3/uL (0.20-1.00); Monocytes % (A) 8.7 %; Neutrophils # (A) 2.97 10*3/uL (1.80-7.70); Neutrophils % (A) 50.8 %; Platelet Count 426 10*3/uL (140-440); RBC 5.45 10*6/uL (4.10-5.20); RDW 18.6 % (11.5-14.5); WBC 5.86 10*3/uL (4.50-10.00)
[2024-10-10 20:50] LABS: INR 0.9 (<1.2); Partial Thromboplastin Time 23.2 sec (22.0-30.0); Prothrombin Time 10.1 sec (10.0-12.5)
[2024-10-10 20:57] LABS: ALT 9 U/L (4-34); AST 20 U/L (14-36); African American GFR (CKD) >90 (>60 ml/min/1.73 sqM); Albumin 4.7 g/dL (3.5-5.0); Alkaline Phosphatase 137 U/L (38-126); Anion Gap 12 mmol/L; Blood Urea Nitrogen 7 mg/dL (7-17); Calcium 9.9 mg/dL (8.4-10.2); Carbon Dioxide 23 mmol/L (22-30); Chloride 103 mmol/L (98-107); Glucose 85 mg/dL (74-99); Magnesium 2.3 mg/dL (1.6-2.3); Non-African American GFR(CKD) 84 (>60 ml/min/1.73 sqM); Potassium 4.3 mmol/L (3.5-5.1); Sodium 138 mmol/L (137-145); Total Bilirubin 0.7 mg/dL (0.2-1.3); Total Protein 8.2 g/dL (6.3-8.2)
[2024-10-10] MEDS: PANTOPRAZOLE 40 MG/10 ML VIAL IVP ONE (22:25)
[2024-10-10] MEDS: SODIUM CHLORIDE 0.9% 1,000 ML IV ONE (22:31)
[2024-10-10 22:52] VITALS: BP 185/83; PULSE 86; RESP 18
== END 2024-10-10 22:52 | disposition home or self-care (01) ==
LOC: EC 14:28
DX: R53.1 Weakness (principal); M19.90 Unspecified osteoarthritis, unspecified site; Z88.1 Allergy status to other antibiotic agents; Z88.2 Allergy status to sulfonamides; Z88.5 Allergy status to narcotic agent; Z88.8 Allergy status to other drugs, medicaments and biological substances
CPT/HCPCS: 36415; 93005; 80053; 83735; 84484; 85025; 85610; 85730; 71046; 99285; 96374; J2470

== ENCOUNTER 2024-11-02 12:52 | Emergency (ER) | payer MEDICARE ==
[2024-11-02 12:58] VITALS: RESP 18; TEMP 98.1
--- NOTE | 2024-11-02 13:32 | ED ---
Fall HPI - General Chief Complaint: Fall Stated Complaint: Fall-Rey hip pain Source: patient Mode of arrival: ambulatory - History of Present Illness Initial Comments: 71-year-old female with hearing disorder, seizure disorder, thyroid disorder, Mnire's disease, history of total knee replacement, cervical fusion here for evaluation of a ground level fall. She was bilateral hip pain overnight but is n ot new to her and has been going on for a month. About 9:30am today, she slipped in the bathtub and hit her right hip and then hit the right side of her head. She did not lose consciousness at the time. She kept having spells of lightheadedness since then which led her to seek care. Denied dizziness, nausea, vomiting, sweats, chest pain, SOB, palpitations, abdominal pain. She was last here in 10/10 for generalized weakness. Ambulates with a cane independently. - Related Data Home Medications Medication Instructions Recorded Confirmed Levothyroxine Sodium [Synthroid] 50 mcg PO DAILY 11/11/17 04/30/24 Meclizine [Antivert] 25 mg PO TID 11/11/17 04/30/24 Omeprazole 20 mg PO TID 11/11/17 04/30/24 Potassium Chloride ER [K-Dur 20] 20 meq PO BID 11/11/17 04/30/24 buPROPion XL [Wellbutrin XL] 150 mg PO HS 11/11/17 04/30/24 carvediloL [Coreg] 3.125 mg PO BID 11/11/17 04/30/24 Citalopram Hydrobromide [CeleXA] 40 mg PO DAILY 06/23/18 04/30/24 Atorvastatin Calcium [Lipitor] 10 mg PO HS 11/24/20 04/30/24 Ibuprofen [Motrin] 800 mg PO TID 11/24/20 04/30/24 Zolpidem Tartrate [Ambien] 10 mg PO HS 11/24/20 04/30/24 Baclofen [Lioresal] 10 mg PO BID 08/14/21 04/30/24 LORazepam [Ativan] 1 mg PO HS 08/21/23 04/30/24 levETIRAcetam [Keppra] 500 mg PO TID 08/21/23 04/30/24 Previous Rx's Medication Instructions Recorded methylPREDNISolone [Medrol Dose 0 mg PO DIRECTED #1 packet 07/11/24 Pack] Allergies Allergy/AdvReac Type Severity Reaction Status Date / Time ciprofloxacin [From Cipro] Allergy Unknown Verified 11/02/24 12:58 ciprofloxacin HCl Allergy Unknown Verified 11/02/24 12:58 [From Cipro] codeine Allergy Rash/Hives Verified 11/02/24 12:58 hydrocodone bitartrate Allergy Rash/Hives Verified 11/02/24 12:58 [From Lortab] hydromorphone [From Dilaudid] Allergy Rash/Hives Verified 11/02/24 12:58 meperidine HCl [From Demerol] Allergy Rash/Hives Verified 11/02/24 12:58 morphine Allergy Rash/Hives Verified 11/02/24 12:58 propoxyphene napsylate Allergy Rash/Hives Verified 11/02/24 12:58 [From Darvocet-N 100] soy Allergy Anaphylaxis Verified 11/02/24 12:58 Sulfa (Sulfonamide Allergy Rash/Hives Verified 11/02/24 12:58 Antibiotics) tetracycline [Tetracycline] Allergy Rash/Hives Verified 11/02/24 12:58 tioconazole [From Monistat 1] Allergy Rash/Hives Verified 11/02/24 12:58 tramadol Allergy Rash/Hives. Verified 11/02/24 12:58 "THROAT CLOSING UP" hemp Allergy Rash/Hives Uncoded 11/02/24 12:58 Review of Systems ROS Statement: Those systems with pertinent positive or pertinent negative responses have been documented in the HPI. ROS Other: All systems not noted in ROS Statement are negative. Past Medical History Past Medical History: Asthma, Cancer, GERD/Reflux, GI Bleed, Hearing Disorder / Deafness, Hyperlipidemia, Hypertension, Osteoarthritis (OA), Seizure Disorder, Thyroid Disorder Additional Past Medical History / Comment(s): Last seizure one year plus. Hard of hearing. MENIERES. Hx bilateral breast cancer 20 yrs ago. Hx bowel obstruction FROM DIVERTICULTIS. colitis. Exercise Induced Asthma. History of Any Multi-Drug Resistant Organisms: ESBL Date of last positivie culture/infection: 01/08/18 MDRO Source:: ESBL URINE Past Surgical History: Appendectomy, Back Surgery, Bariatric Surgery, Bowel Resection, Breast Surgery, Cholecystectomy, Heart Catheterization, Hernia Repair, Joint Replacement, Pacemaker, Tonsillectomy Additional Past Surgical History / Comment(s): LOWER BACK SURGERY. PACEMAKER. LAP BAND INSERTED & REMOVED. GASTRIC SLEEVE (2016). BILATERAL TOTAL KNEE REPLACEMENTS, CERVICAL FUSION (2-7). BOWEL RESECTION (DIVERTICULITIS). INCISIONAL HERNIA REPAIR SEVERAL HEART CATHS-NO STENTS. 1984 BILATERAL BREAST LUMPECTOMIES (CANCER). Past Anesthesia/Blood Transfusion Reactions: Previous Problems w/ Anesthesia Additional Past Anesthesia/Blood Transfusion Reaction / Comment(s): Blood transfusion X3 -no reaction. "Low BP with anesthesia if takes BP med AM of surgery." MENIERES DISEASE. Type of Cardiac Device: Permanent Pacemaker Device Placement Date:: 10/12/17 Past Psychological History: Anxiety, Depression Smoking Status: Never smoker Past Alcohol Use History: None Reported Past Drug Use History: None Reported - Past Family History Mother Family Medical History: Pulmonary Embolus Additional Family Medical History / Comment(s): Multiple TIA's. Father Family Medical History: Cancer Additional Family Medical History / Comment(s): Lung Cancer. Sister(s) Family Medical History: Cancer, Deep Vein Thrombosis (DVT), Pulmonary Embolus Additional Family Medical History / Comment(s): OVARIAN CANCER. General Exam - General Exam Comments Initial Comments: Physical examination: Vital signs reviewed General: non toxic, no distress, appears at stated age Head: atraumatic, normocephalic, symmetric, slight swelling at right temporal area Mouth: no lip lesion, mucus membranes moist Cardiovascular: S1S2 reg, no murmur Lungs: CTA bilateral, no rhonchi, no rales, no accessory muscle use Abdominal: soft, nondistended, nontender to palpation, no guarding Ext: muscle strength 5 out of 5 in all 4 extremities grossly, no gross muscle atrophy, no contractures, positive dorsalis pedis pulse bilateral, no edema Neuro: no gross focal neuro deficits Psych: Alert and oriented x3, appropriate affect and mood Limitations: no limitations Course Vital Signs 11/02/24 11/02/24 12:54 14:09 Temperature 98.1 F Pulse Rate 61 54 L Respiratory 18 18 Rate Blood Pressure 154/81 157/79 O2 Sat by Pulse 95 97 Oximetry Medical Decision Making - Medical Decision Making Was pt. sent in by a medical professional or institution (, PA, ELECTRONIC COMMUNICATIONS TECHNICIAN, urgent care, hospital, or prison...) When possible be specific @ -No Did you speak to anyone other than the patient for history (EMS, parent, family, police, friend...)? What history was obtained from this source @ -Family member at bedside Did you review nursing and triage notes (agree or disagree)? Why? @ -I reviewed and agree with nursing and triage notes Were old charts reviewed (outside hosp., previous admission, EMS record, old EKG, old radiological studies, urgent care reports/EKG's, prison records)? Report findings @ -Old chart reviewed Differential Diagnosis? @ -Differential mechanical ground-level fall: Fracture, trauma, intercranial hemorrhage, encephalopathy, meningitis, CVA, this is not meant to be an all-inclusive list EKG interpreted by me (3pts min.). @ -None done X-rays interpreted by me (1pt min.). @ -None done CT interpreted by me (1pt min.). @ -None done U/S interpreted by me (1pt. min.). @ -None done What testing was considered but not performed or refused? (CT, X-rays, U/S, labs)? Why? @ -None What meds were considered but not given or refused? Why? @ -None Did you discuss the management of the patient with other professionals (professionals i.e. , PA, ELECTRONIC COMMUNICATIONS TECHNICIAN, lab, RT, psych nurse, manager social responsibility, vinyl installer, teacher, legal officer, case management rn)? Give summary @ -Dr. Leon, supervising physician Was smoking cessation discussed for >3mins.? @ -No Was critical care preformed (if so, how long)? @ -No Were there social determinants of health that impacted care today? How? (Homelessness, low income, unemployed, alcoholism, drug addiction, transportation, low edu. Level, literacy, decrease access to med. care, residential, rehab)? @ -No Was there de-escalation of care discussed even if they declined (Discuss DNR or withdrawal of care, Hospice)? DNR status @ -No What co-morbidities impacted this encounter? (DM, HTN, Smoking, COPD, CAD, Cancer, CVA, ARF, Chemo, Hep., AIDS, mental health diagnosis, sleep apnea, morbid obesity)? @ -None Was patient admitted / discharged? Hospital course, mention meds given and route, prescriptions, significant lab abnormalities, going to OR and other pertinent info. @ -Discharge. CT brain and C-spine without contrast and bilateral hip x-ray ordered. Both imagings were negative for acute process, fracture, bleeds. Noted right sphenoid sinus inflammation. Patient did not outright have any pain issues and no new symptoms occurred throughout her stay. She is able to ambulate independently with a cane without any issue or developing symptoms. She was advised to follow-up with PCP in 1 to 2 days and advised to return if there are any worsening or red flag symptoms Undiagnosed new problem with uncertain prognosis? @ -No Drug Therapy requiring intensive monitoring for toxicity (Heparin, Nitro, Insulin, Cardizem)? @ -No Were any procedures done? @ -No Diagnosis/symptom? @ -[default] Acute, or Chronic, or Acute on Chronic? @ -[default] Uncomplicated (without systemic symptoms) or Complicated (systemic symptoms)? @ -[default] Side effects of treatment? @ -[No] Exacerbation, Progression, or Severe Exacerbation? @ -[No] Poses a threat to life or bodily function? How? (Chest pain, [place], [place], pneumonia, PE, COPD, DKA, ARF, appy, cholecystitis, CVA, Diverticulitis, Homicidal, Suicidal, threat to staff... and all critical care pts) @ -Yes. Possible brain bleed, hip fracture Disposition Clinical Impression: Fall Disposition: HOME SELF-CARE Condition: Good Instructions (If sedation given, give patient instructions): Fall Prevention for Older Adults (ED) Additional Instructions: Plan to follow-up with PCP. Advised to return if symptoms suggest severe headache, nausea, vomiting, excruciating back pain occurs. Is patient prescribed a controlled substance at d/c from ED?: No Referrals: Cade Menendez DO [Primary Care Provider] - 1-2 days Time of Disposition: 15:20
--- NOTE | 2024-11-02 14:42 | XR ---
EXAMINATION TYPE: XR Hip Bilateral and AP pelvis DATE OF EXAM: 11/02/2024 2:35 PM COMPARISON: None. CLINICAL INDICATION: Female, 74 years old with history of Fall, pain TECHNIQUE: XR Hip Bilateral and AP pelvis; hip was examined in the frontal and lateral projections an d a AP pelvis. FINDINGS: No evidence for acute process, joint dislocation or significant soft tissue swelling. Osteo phyte formation of the superior acetabulum of the hip. There is mild joint space narrowing. IMPRESSION: 1. No evidence for acute process. 2. Mild hip osteoarthrosis. [facility], , 11/02/2024 2:40 PM
--- NOTE | 2024-11-02 14:45 | CT ---
EXAMINATION TYPE: CT brain april wo con DATE OF EXAM: 11/02/2024 COMPARISON: 05/09/2023 CLINICAL INDICATION: Female, 74 years old with history of Fall; [facility], fall TECHNIQUE: CT scan of the head and cervical spine are performed without contrast. CT DLP: [address] CTDI: mGy Automated exposure control for dose reduction was used. Findings: Head CT: Ventricles, basal cisterns and sulci over convexities within normal limits and there is no mass, mass effect or shift of midline structures. No abnormal density is seen throughout the brain parenchyma and there is no acute intra or extra-axia l hemorrhage. Posterior fossa including the brainstem, fourth ventricle and cerebellar pontine angles are grossly n ormal. The intraorbital contents appear normal and symmetric. There is near complete opacification of the ri ght aspect of the sphenoid sinus. The remaining paranasal sinuses and mastoid air cells are well aera herman. CT cervical spine: Craniovertebral junction relationships and prevertebral soft tissues are normal. There is fusion of C3 through C7. There is a 3 mm anterolisthesis of C7 on T1 is moderate to marked d egenerative disease at the C7/T1 level where there is moderate to marked disc space narrowing and spo ndylosis. The C2-3 disc is well preserved without significant degeneration. There is no cervical spine fracture. There is no bony encroachment of the cervical canal. The paraspinal soft tissues unremarkable. IMPRESSION: 1. Head CT: No acute bleed or mass effect. Inflammatory changes in the right sphenoid sinus. 2. CT cervical spine: No acute trauma. Postsurgical changes as described above. Degenerative changes at C7/T1 level [facility], , 11/02/2024 2:42 PM
[2024-11-02 15:40] VITALS: BP 167/89; PULSE 60
== END 2024-11-02 15:40 | disposition home or self-care (01) ==
LOC: EC 12:52
DX: M25.552 Pain in left hip (principal); M25.551 Pain in right hip; Z88.2 Allergy status to sulfonamides; Z88.5 Allergy status to narcotic agent; Z88.6 Allergy status to analgesic agent; Z88.1 Allergy status to other antibiotic agents; Z88.8 Allergy status to other drugs, medicaments and biological substances; Z91.018 Allergy to other foods; W18.2XXA Fall in (into) shower or empty bathtub, initial encounter
CPT/HCPCS: 70450; 72125; 73521; 99284